=== PATIENT | female | born 1975 | race Caucasian/White ===

== ENCOUNTER 2017-12-18 23:33 | Emergency (ER) | payer SELFPAY ==
[2017-12-18 23:35] VITALS: BP 197/119; PULSE 105; RESP 18; TEMP 36.6; O2SAT 98; BMI 46.3
--- NOTE | 2017-12-18 23:38 | EKG12_ITS ---
Test Reason : CP Blood Pressure : / mmHG Vent. Rate : 098 BPM Atrial Rate : 098 BPM P-R Int : 146 ms QRS Dur : 092 ms QT Int : 384 ms P-R-T Axes : 028 -02 043 degrees QTc Int : 490 ms Normal sinus rhythm Prolonged QT Abnormal ECG Confirmed by JULES SALINAS MD ([id number]), design editor ABRIL RIVAS ([id number]) on 12/22/2017 2:01:59 PM Referred By: CARLA Confirmed By:JULES SALINAS MD
--- NOTE | 2017-12-18 23:38 | RAD_ITS ---
STUDY: X-RAY CHEST REASON FOR EXAM: Female, 42 years old. Chest pain. Shortness of breath. TECHNIQUE: 1 view COMPARISON: None. FINDINGS: The lungs are clear and expanded. There is no demonstrated pleural abnormality. Normal size heart. Normal mediastinum and rebecca. Normal visualized pulmonary arteries. Normal visualized aortic arch and descending thoracic aorta. Normal visualized thoracic spine. Normal visualized ribs, clavicles, and shoulders. There is no demonstrated abnormality of the visualized soft tissue structures of the upper abdomen. RAD/Chest 1 View (Portable) IMPRESSION: Normal x-ray examination of the chest. No acute findings in the lungs Electronically Signed: Prakash Bishop, at 0:22 EDT Tel , Service support ,
[2017-12-18 23:53] VITALS: BP 172/116; PULSE 96; RESP 24; O2SAT 95
[2017-12-18] MEDS: Aspirin 81 MG TAB.CHEW 324 MG PO (23:59)
[2017-12-19 00:02] LABS: Absolute Lymphocyte Count 3.68 X10^3/ul (0.83-4.51); Absolute Neutrophil Count 4.3 X10^3/uL (2.0-7.7); Basophil# 0.04 X10^3/uL; Basophil% 0.5 % (0-1); Eosinophil# 0.15 X10^3/uL; Eosinophils% 1.7 % (0-5); Hemoglobin 13.5 g/dl (12.0-15.0); Lymphocyte # 3.68 X10^3/ul (4.0); Lymphocyte % 42.2 % (19-41); Mean Corp Hgb Conc 33.8 g/gl (32-36); Mean Corpuscular Hgb 28.1 pg (27.0-32.0); Mean Corpuscular Volume 83.3 fL (81-99); Mean Platelet Vol. 9.7 fl (6.2-12.0); Monocyte# 0.57 X10^3/uL; Monocyte% 6.5 % (0-10); Neutrophil # 4.26 X10^3/uL (2.7-7.7); Neutrophil % 48.9 % (47-70); Platelet Count 252 K/mm3 (150-450); RBC Distribution Width CV 14.1 % (11.6-14.6); RBC Distribution Width SD 42.6 fl (35.1-43.9); White Blood Count 8.7 K/mm3 (4.4-11.0)
[2017-12-19 00:03] LABS: POSITIVE COUNT NO; POSITIVE DIFFERENTIAL NO; POSITIVE MORPHOLOGY NO
[2017-12-19 00:19] LABS: Anion Gap 7 (5-15); BUN 8 mg/dL (7-18); Calcium,Total 8.7 mg/dL (8.5-10.1); Chloride 107 mmol/L (98-107); Creatinine, Serum 0.88 mg/dL (0.55-1.02); EST Glomerular Filtration Rate 75 mL/min (>60); Est Glom Filt Rate - Afr Amer 91 mL/min (>60); Estimated Creatinine Clearance 79.55 ml/min; Glucose 151 mg/dL (74-106); Potassium 3.7 mmol/L (3.5-5.1); Sodium Level 142 mmol/L (136-145)
--- NOTE | 2017-12-19 00:41 | EKG12_ITS ---
Test Reason : REPEAT Blood Pressure : / mmHG Vent. Rate : 095 BPM Atrial Rate : 095 BPM P-R Int : 142 ms QRS Dur : 090 ms QT Int : 378 ms P-R-T Axes : 033 -07 034 degrees QTc Int : 475 ms Normal sinus rhythm Normal ECG Confirmed by JULES SALINAS MD ([id number]), pictures editor ABRIL RIVAS ([id number]) on 12/22/2017 2:02:14 PM Referred By: CARLA Confirmed By:JULES SALINAS MD
--- NOTE | 2017-12-19 00:42 | ED.VISSUMM ---
- ER Visit Summary Date of Service: 12/19/17 Chief Complaint: Chest pain History of Present Illness: The patient is a 42 F male history of reflux, hypertension, DVT on Xarelto and prior breast cancer 5 years ago without metastases. He states she has felt rundown all week. Started having chest pain about 4 hours prior to arrival while at rest. Denies any shortness of breath. Denies any hemoptysis. Denies any leg pain or swelling. States 1-2 years ago she had a stress test that was negative at the [facility]. She has never had a heart cath. She denies any recent exertional chest pain or exertional dyspnea. She has had no recent travel or surgery. Pain is not pleuritic. It is midsternal. The pain does not radiate to her neck, back, jaw or down her arm. She denies any abdominal pain. Physical Examination: Well appearing middle-aged female. Initial blood pressure 197 119. Afebrile pulse ox 90% on room air no signs of hypoxia. She is in no distress. H EENT exam unremarkable. Neck nontender no lymphadenopathy. Lungs clear to auscultation bilaterally. Chest wall nontender. Heart regular rhythm rate about 98 no murmur. Abdomen is soft and nontender. Normal bowel sounds no peritoneal signs. Extremities she moves all 4. Neurovascular intact. Calves nontender. No edema. No cords. Normal range of motion both upper and lower extremities. Equal symmetrical radial pulses. Back exam nontender. Neurologically she is awake and alert without focal motor deficits. Test Results: Chest x-ray portable one view read by myself the radiologist showed no acute abnormality. Normal cardiac silhouette and mediastinum. CBC normal. BMP normal. Troponin normal less than 0.02. Initial EKG sinus rhythm a rate of 98 with no acute signs of NM or ischemia. Unchanged from prior EKG from November 2016. Emergency Department Course and Treatment: Patient worked up for chest pain. Given p.o. aspirin. On repeat exam she is doing well at 00 41. I went over all the test results with the patient. I explained that this is atypical pain. It was at rest she has had no exertional symptoms. She wants to be discharged home. I discussed with her getting a second troponin which she did not want to wait for is that she will follow-up with her primary care physician. A second EKG will be obtained prior to discharge. Treatment Plan: Cardiac evaluation. Disposition: Discharge follow-up with her primary care physician Dr. Muse. Impression: Acute chest pain uncertain etiology. Acute on chronic hypertension This note was generated with [employer] dictation software. It may contain incorrect words, spelling, and punctuation that were not noted in review of the chart prior to signing ED Disposition - Plan for ED Patient: Chief Complaint: Chest Pain Referrals: Sukhdeep Muse MD [Primary Care Provider] -
--- NOTE | 2017-12-19 00:46 | ED.DCSUM_ITS ---
- ER Visit Summary Date of Service: 12/19/17 Chief Complaint: Chest pain History of Present Illness: The patient is a 42 F male history of reflux, hypertension, DVT on Xarelto and prior breast cancer 5 years ago without metastases. He states she has felt rundown all week. Started having chest pain about 4 hours prior to arrival while at rest. Denies any shortness of breath. Denies any hemoptysis. Denies any leg pain or swelling. States 1-2 years ago she had a stress test that was negative at the [facility]. She has never had a heart cath. She denies any recent exertional chest pain or exertional dyspnea. She has had no recent travel or surgery. Pain is not pleuritic. It is midsternal. The pain does not radiate to her neck, back, jaw or down her arm. She denies any abdominal pain. Physical Examination: Well appearing middle-aged female. Initial blood pressure 197 119. Afebrile pulse ox 90% on room air no signs of hypoxia. She is in no distress. H EENT exam unremarkable. Neck nontender no lymphadenopathy. Lungs clear to auscultation bilaterally. Chest wall nontender. Heart regular rhythm rate about 98 no murmur. Abdomen is soft and nontender. Normal bowel sounds no peritoneal signs. Extremities she moves all 4. Neurovascular intact. Calves nontender. No edema. No cords. Normal range of motion both upper and lower extremities. Equal symmetrical radial pulses. Back exam nontender. Neurologically she is awake and alert without focal motor deficits. Test Results: Chest x-ray portable one view read by myself the radiologist showed no acute abnormality. Normal cardiac silhouette and mediastinum. CBC normal. BMP normal. Troponin normal less than 0.02. Initial EKG sinus rhythm a rate of 98 with no acute signs of VA or ischemia. Unchanged from prior EKG from November 2016. Emergency Department Course and Treatment: Patient worked up for chest pain. Given p.o. aspirin. On repeat exam she is doing well at 00 41. I went over all the test results with the patient. I explained that this is atypical pain. It was at rest she has had no exertional symptoms. She wants to be discharged home. I discussed with her getting a second troponin which she did not want to wait for is that she will follow-up with her primary care physician. A second EKG will be obtained prior to discharge. Treatment Plan: Cardiac evaluation. Disposition: Discharge follow-up with her primary care physician Dr. Muse. Impression: Acute chest pain uncertain etiology. Acute on chronic hypertension This note was generated with [employer] dictation software. It may contain incorrect words, spelling, and punctuation that were not noted in review of the chart prior to signing ED Disposition - Plan for ED Patient: Chief Complaint: Chest Pain Referrals: Sukhdeep Muse MD [Primary Care Provider] -
--- NOTE | 2017-12-19 00:46 | ED.DEP ---
ED Disposition - Plan for ED Patient: Disposition: Home or Assisted Living Chief Complaint: Chest Pain Instructions: ED Chest Pain Atypical Unkn Cause Referrals: Sukhdeep Muse MD [Primary Care Provider] - As soon as possible Additional Instructions: All your test results were normal tonight. Call and follow-up with Dr. Muse. Return to ER if you are feeling worse or you have recurrent chest pain. Log your blood pressures twice daily. And follow-up with Dr. Muse your blood pressure was running elevated tonight. They may or may not need to adjust her blood pressure medication.
[2017-12-19 00:49] VITALS: BP 157/114; PULSE 97; RESP 18; O2SAT 96
[2017-12-19 01:10] VITALS: BP 154/114; PULSE 95; RESP 18
== END 2017-12-19 01:10 | disposition home or self-care (01) ==
PROVIDERS: Emergency Provider Emergency Medicine; Family Provider Family Medicine; PCP Family Medicine
DX: R07.9 Chest pain, unspecified (principal); I10 Essential (primary) hypertension; K21.9 Gastro-esophageal reflux disease without esophagitis; Z85.3 Personal history of malignant neoplasm of breast; Z86.718 Personal history of other venous thrombosis and embolism; Z79.02 Long term (current) use of antithrombotics/antiplatelets; Z79.899 Other long term (current) drug therapy
CPT/HCPCS: 71045; 80048; 84484; 85025; 93005; 99285; A4216

== ENCOUNTER → 2019-04-02 | Outpatient (CLI) | payer MEDICAID, SELFPAY ==
[2019-04-02 15:29] VITALS: BMI 46.3
[2019-04-06 15:11] LABS: HPV APTIMA, High Risk Negative (Negative)
== END | disposition home or self-care (01) ==
LOC: LABSPEC 17:12
PROVIDERS: Family Provider Family Medicine; PCP Family Medicine; Referring Provider Obstetrics & Gynecology; Visit Provider Obstetrics & Gynecology
DX: Z12.4 Encounter for screening for malignant neoplasm of cervix (principal)
CPT/HCPCS: 87624; 88175; G0145

== ENCOUNTER → 2021-02-19 | Outpatient (CLI) | payer MEDICAID, SELFPAY ==
[2021-02-19 08:50] VITALS: BMI 48.1
== END | disposition home or self-care (01) ==
PROVIDERS: PCP Family Medicine; Referring Provider Nurse Practitioner Women's Health; Visit Provider Nurse Practitioner Women's Health
DX: N76.0 Acute vaginitis (principal); R10.2 Pelvic and perineal pain; R30.9 Painful micturition, unspecified
CPT/HCPCS: 87070; 87086; 87088; 87205

== ENCOUNTER → 2021-02-25 15:10 | Outpatient (CLI) | payer MEDICAID, SELFPAY ==
[2021-02-19 08:50] VITALS: BMI 48.1
--- NOTE | 2021-02-25 15:13 | US_ITS ---
STUDY: ULTRASOUND OF THE FEMALE PELVIS - COMPLETE REASON FOR EXAM: Female, 46 years old. pain LMP: TECHNIQUE: Transabdominal and Transvaginal TECHNICAL QUALITY: Limited. Examination limited due to a combination of factors including obesity and bowel gas. COMPARISON: None. FINDINGS: The uterus is anteverted and is in a midline position. The uterus measures 7.7 x 4.5 x 3.0 cm. There is a Nabothian cyst of the cervix. The endometrium measures 3 mm in thickness, and is hyperechoic. There is no demonstrated endometrial mass. There is no demonstrated myometrial mass. I.U.D. - The patient does not have an I.U.D. The right ovary is non-visualized. Nonvisualized by bowel gas. The left ovary is visualized. There is no left ovarian cyst or ovarian mass. There is no visualized left adnexal mass or complex lesion. There is normal arterial and normal venous vascularity. There is no fluid in the cul-de-sac. The pre void volume of the bladder was 632 ml. US/Transvaginal Non- IMPRESSION: Right ovary is not seen, otherwise negative exam. Electronically Signed: Delfino Walsh MD at 0:02 EDT , Service support ,
--- NOTE | 2021-02-25 15:13 | US_ITS ---
STUDY: ULTRASOUND OF THE FEMALE PELVIS - COMPLETE REASON FOR EXAM: Female, 46 years old. pain LMP: TECHNIQUE: Transabdominal and Transvaginal TECHNICAL QUALITY: Limited. Examination limited due to a combination of factors including obesity and bowel gas. COMPARISON: None. FINDINGS: The uterus is anteverted and is in a midline position. The uterus measures 7.7 x 4.5 x 3.0 cm. There is a Nabothian cyst of the cervix. The endometrium measures 3 mm in thickness, and is hyperechoic. There is no demonstrated endometrial mass. There is no demonstrated myometrial mass. I.U.D. - The patient does not have an I.U.D. The right ovary is non-visualized. Nonvisualized by bowel gas. The left ovary is visualized. There is no left ovarian cyst or ovarian mass. There is no visualized left adnexal mass or complex lesion. There is normal arterial and normal venous vascularity. There is no fluid in the cul-de-sac. The pre void volume of the bladder was 632 ml. US/Pelvic (Non ) IMPRESSION: Right ovary is not seen, otherwise negative exam. Electronically Signed: Delfino Walsh MD at 0:02 EDT , Service support ,
== END ==
PROVIDERS: PCP Family Medicine; Referring Provider Nurse Practitioner Women's Health; Visit Provider Nurse Practitioner Women's Health
DX: R10.2 Pelvic and perineal pain (principal)
CPT/HCPCS: 76830; 76856

== ENCOUNTER → 2022-04-09 | Outpatient (CLI) | payer MEDICAID, SELFPAY | END | disposition home or self-care (01) | LOC: LABSPEC 10:01 | PROVIDERS: PCP Family Medicine; Visit Provider Obstetrics & Gynecology | DX: N89.8 Other specified noninflammatory disorders of vagina (principal) | CPT/HCPCS: 87070; 87086; 87088; 87205 ==

== ENCOUNTER → 2022-10-15 | Outpatient (CLI) | payer MEDICAID, SELFPAY ==
--- NOTE | 2022-10-15 14:05 | US_ITS ---
STUDY: ULTRASOUND OF THE FEMALE PELVIS - COMPLETE REASON FOR EXAM: Female, 47 years old. AUB LMP: 10/05/2022. TECHNIQUE: Transabdominal and Transvaginal TECHNICAL QUALITY: Adequate. COMPARISON: Comparison is made with prior examination dated 02/25/2021. FINDINGS: The uterus is anteverted and is in a midline position. The uterus measures 7.6 x 5.9 cm x 4.3 cm. There is a Nabothian cyst of the cervix. The endometrium measures 5.2 mm in thickness, and is hyperechoic. There is no demonstrated endometrial mass. There is no demonstrated myometrial mass. I.U.D. - The patient does not have an I.U.D. The right ovary is visualized. The right ovary measures 2 cm x 1.7 cm x 1 cm. There is no right ovarian cyst or ovarian mass. There is no visualized right adnexal mass or complex lesion. There is normal arterial and normal venous vascularity. The left ovary is non-visualized due to overlying bowel gas. There is no fluid in the cul-de-sac. The pre void volume of the bladder was 288 ml. US/Pelvic (Non ) IMPRESSION: Normal female pelvis. Nonvisualization of the left ovary due to overlying bowel gas. Electronically Signed: Chet Valdes MD at 11:04 EST ,
== END | disposition home or self-care (01) ==
LOC: OPUS 14:04
PROVIDERS: PCP Family Medicine; Referring Provider Obstetrics & Gynecology; Visit Provider Obstetrics & Gynecology
DX: N93.9 Abnormal uterine and vaginal bleeding, unspecified (principal)
CPT/HCPCS: 76830; 76856

== ENCOUNTER → 2023-05-24 | Outpatient (CLI) | payer MEDICAID, SELFPAY ==
[2023-05-24 14:56] LABS: Follicle Stimulating Hormone 13.3 mIU/mL; Prolactin 3.4 ng/mL
[2023-05-28 10:08] LABS: HPV APTIMA, High Risk Negative (Negative)
[2023-05-29 11:07] LABS: 17-Hydroxyprogesterone 17 ng/dL (.)
[2023-06-03 05:08] LABS: Testosterone Free 1.5 pg/mL (0.0-4.2)
== END | disposition home or self-care (01) ==
PROVIDERS: PCP Family Medicine; Referring Provider Obstetrics & Gynecology; Visit Provider Obstetrics & Gynecology
DX: N93.9 Abnormal uterine and vaginal bleeding, unspecified (principal); N95.0 Postmenopausal bleeding; Z12.4 Encounter for screening for malignant neoplasm of cervix; Z78.0 Asymptomatic menopausal state
CPT/HCPCS: 36415; 82627; 82670; 83001; 83498; 84146; 84402; 87624; 88175; 82626; G0145

== ENCOUNTER → 2023-06-01 | Outpatient (CLI) | payer MEDICAID, SELFPAY ==
--- NOTE | 2023-06-01 13:59 | US_ITS ---
INDICATION: aub, pmb EXAMINATION: Ultrasound US Pelvis Non OB Limited With Transvaginal Imaging TECHNIQUE: Transabdominal and transvaginal (for optimal evaluation of the adnexa) pelvic ultrasound was performed. Grayscale, spectral waveform, and color flow Doppler evaluation of the adnexa. COMPARISON: 10/15/2022. FINDINGS: UTERUS: Anteverted. The uterus measures 8.9 x 5.4 x 4.3 cm. There is no uterine mass. The endometrial stripe measures 5 mm in AP diameter which is within normal limits. RIGHT OVARY: Not visualized. LEFT OVARY: Not visualized. FREE FLUID: None. US/Pelvic (Non ) IMPRESSION: Nonvisualization of bilateral ovaries due to overlying bowel gas. Otherwise, normal uterus. Electronically Signed: Nikhil Albert MD at 20:44 EDT ,
--- NOTE | 2023-06-01 13:59 | US_ITS ---
INDICATION: aub, pmb EXAMINATION: Ultrasound US Pelvis Non OB Limited With Transvaginal Imaging TECHNIQUE: Transabdominal and transvaginal (for optimal evaluation of the adnexa) pelvic ultrasound was performed. Grayscale, spectral waveform, and color flow Doppler evaluation of the adnexa. COMPARISON: 10/15/2022. FINDINGS: UTERUS: Anteverted. The uterus measures 8.9 x 5.4 x 4.3 cm. There is no uterine mass. The endometrial stripe measures 5 mm in AP diameter which is within normal limits. RIGHT OVARY: Not visualized. LEFT OVARY: Not visualized. FREE FLUID: None. US/Transvaginal Non- IMPRESSION: Nonvisualization of bilateral ovaries due to overlying bowel gas. Otherwise, normal uterus. Electronically Signed: Nikhil Albert MD at 20:44 EDT ,
== END | disposition home or self-care (01) ==
LOC: US 13:58
PROVIDERS: PCP Family Medicine; Referring Provider Obstetrics & Gynecology; Visit Provider Obstetrics & Gynecology
DX: N93.9 Abnormal uterine and vaginal bleeding, unspecified (principal); N95.0 Postmenopausal bleeding
CPT/HCPCS: 76830; 76856

== ENCOUNTER → 2023-10-11 | Outpatient (CLI) | payer MEDICAID, SELFPAY ==
[2023-10-11 13:45] LABS: Absolute Lymphocyte Count 2.67 X10^3/uL (0.83-4.51); Absolute Neutrophil Count 5.1 X10^3/uL (2.0-7.7); Basophil# 0.05 X10^3/uL; Basophil% 0.6 % (0-1); Eosinophils% 2.4 % (0-5); Hematocrit 47.3 % (37-47); Hemoglobin 15.4 g/dL (12.0-15.0); Lymphocyte # 2.67 X10^3/ul (0.83-4.51); Lymphocyte % 31.5 % (19-41); Mean Corp Hgb Conc 32.6 g/dL (32-36); Mean Corpuscular Hgb 29.3 pg (27.0-32.0); Mean Corpuscular Volume 90.1 fL (81-99); Mean Platelet Vol. 9.7 fl (6.2-12.0); Monocyte# 0.47 X10^3/uL; Monocyte% 5.5 % (0-10); NRBC Flagged by Analyzer 0 % (0-5); Neutrophil # 5.06 X10^3/uL (2.7-7.7); Neutrophil % 59.6 % (47-70); Platelet Count 293 K/mm3 (150-450); RBC Distribution Width CV 12.9 % (11.6-14.6); RBC Distribution Width SD 42.2 fl (35.1-43.9); Red Blood Count 5.25 M/mm3 (4.2-5.4); White Blood Count 8.5 K/mm3 (4.4-11.0)
--- OUTSIDE RECORDS SUMMARY | 2023-10-11 13:50 | XMS RPT_ITS | CCD ---
Author Name Unknown Address [address] [place] [address] Organization [facility] Care Team Providers Care Law Writer Name Role Phone Sukhdeep Muse MD Primary Care Provider SUKHDEEP MUSE Primary Care Unavailable SAVITA GRIFFITH Attending Unavailable VICENTE, SUKHDEEP Mariano Primary Care Unavailable MONICA MANUEL Attending Unavailable MONICA MANUEL Referring Unavailable CHARISMA LANE Attending Unavailable DEE GARCIA Referring Unavailable VICENTE, SUKHDEEP Mariano Primary Care Unavailable VICENTE, SUKHDEEP Mariano Primary Care Unavailable DEE GARCIA Attending Unavailable SUKHDEEP MUSE Referring Unavailable VICENTE, SUKHDEEP Mariano Primary Care Unavailable SUKHDEEP MUSE Referring Unavailable VICENTE, SUKHDEEP Mariano Primary Care Unavailable VICENTE, SUKHDEEP Mariano Referring Unavailable VICENTE, SUKHDEEP Mariano Primary Care Unavailable VICENTE, SUKHDEEP Mariano Primary Care Unavailable VICENTE, SUKHDEEP Mariano Attending Unavailable SUKHDEEP MUSE Primary Care Unavailable MONICA MANUEL Referring Unavailable VICENTE, SUKHDEEP Mariano Primary Care Unavailable MONICA MANUEL Attending Unavailable MONICA MANUEL Referring Unavailable VICENTE, SUKHDEEP Mariano Primary Care Unavailable JADE BLANCO Referring Unavailable VICENTE, SUKHDEEP Mariano Primary Care Unavailable SAVITA GRIFFITH Attending Unavailable SUKHDEEP MUSE Primary Care Unavailable SAVITA GRIFFITH Referring Unavailable STEPHANIE RAYMOND~[id number], STEPHANIE Floyd g Unavailable MARISA RAYMOND, MARY Chappell Consulting Unavailable MARISA RAYMOND~[id number], MARISA Chappell Attending Unavailable SUKHDEEP MUSE Primary Care Unavailable MARISA RAYMOND, MARY Chappell Consulting Unavailable SUKHDEEP MUSE Consulting Unavailable SUKHDEEP MUSE Consulting Unavailable JUAN RAYMOND, ADA Consulting Unavailabl essence MARTINEZ MD, ADA Consulting Unavailcorey BROWN MD, Jayro Carvalho Consulting Unavailab radha BROWN MD, Jayro Carvalho Consulting Unavailab PEDRITO Hassan PA-C Consulting UnavailPEDRITO Singleton PA-C Consulting Unavailabl RORY Shelley DO Consulting Unavailable RORY VELEZ DO Consulting Unavailable Allergies Allergy Classification Reported Allergen(s) Allergy Type Date of Onset Reaction(s) Facility (16 sources) Contrast media Drug Allergy 3 Hives [facility] Work Phone: (20 sources) Ketorolac; Translations: [KETOROLAC TROMETHAMINE] Drug Allergy 3 Hives [facility] Work Phone: (20 sources) Lisinopril; Translations: [LISINOPRIL] Drug Allergy 6 Cough [facility] Work Phone: (16 sources) Morphine Drug Allergy 3 Hives [facility] Work Phone: (20 sources) Nitrofurantoin; Translations: [NITROFURANTOIN] Drug Allergy 3 Hives, Other: See Comments [facility] Work Phone: (20 sources) Phenazopyridine; Translations: [PHENAZOPYRIDINE] Drug Allergy 3 Hives, Other: See Comments [facility] Work Phone: (1 source) Amino Acids Drug Allergy [facility] (1 source) Ketorolac Drug Allergy [facility] (1 source) Phenazopyridine Drug Allergy [facility] Medications Current Medications Medication Drug Class(es) Dates Sig (Normalized) Sig (Original) amoxicillin 875 mg oral tablet (2 sources) Penicillin-class Antibacterial Start: 03-09-2023 End: 03-14-2023 take 1 tablet by mouth twice daily amoxicillin (AMOXIL) 875 mg tablet Indications: Pain, dental Take 1 tablet by mouth twice daily for 5 days. 10 tablet 0 03/09/2023 03/14/2023 Active Completed/Discontinued Medications Medication Drug Class(es) Dates Sig (Normalized) Sig (Original) acetaminophen 500 mg oral tablet (20 sources) End: 06-14-2022 take 2 tablets by mouth every eight hours as needed acetaminophen (TYLENOL) 500 mg tablet Take 1,000 mg by mouth every 8 hours as needed. 0 Active Problems Active Problems Problem Classification Problem Date Documented Date Episodic/Chronic Anxiety disorders (20 sources) Anxiety; Translations: [Anxiety disorder, unspecified] Onset: 05-04-2022 06-08-2014 Chronic Cancer of breast (20 sources) Malignant neoplasm of upper-outer quadrant of female breast; Translations: [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eft female breast] Onset: 12-13-2012 07-11-2017 Chronic Diabetes mellitus with complications (20 sources) Type 2 diabetes mellitus; Translations: [Type 2 diabetes mellitus with hyperglycemia] Onset: 05-04-2022 Chronic Diabetes mellitus without complication (1 source) Type 2 diabetes mellitus without complication; Translations: [Type 2 diabetes mellitus without complications] Chronic Diseases of white blood cells (20 sources) Other drug-induced agranulocytosis; 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] Onset: 12-18-2012 12-18-2012 Chronic Disorders of teeth and jaw (1 source) Toothache; Translations: [Other specified disorders of teeth and supporting structures] Episodic Esophageal disorders (1 source) Gastro-esophageal reflux disease without esophagitis; Translations: [Hiatal hernia with GERD without esophagitis] Onset: 07-02-2016 Chronic Esophageal disorders (1 source) Esophageal disorders; Translations: [Gastroesophageal reflux disease with esophagitis without hemorrhage] Onset: 03-29-2023 Essential hypertension (20 sources) Hypertensive disorder; Translations: [Essential (primary) hypertension] Onset: 06-08-2014 06-08-2014 Chronic Immunizations and screening for infectious disease (5 sources) Patient encounter status; Translations: [Encounter for screening for human immunodeficiency virus [HIV]] Onset: 08-01-2023 Episodic Mood disorders (1 source) Mood disorders; Translations: [Anxiety and depression] Onset: 05-04-2022 Nonmalignant breast conditions (1 source) Fibrocystic changes of bilateral breasts; Translations: [Diffuse cystic mastopathy of right breast] Chronic Osteoporosis (20 sources) Osteoporosis; Translations: [Age-related osteoporosis without current pathological fracture] Onset: 12-10-2021 12-10-2021 Chronic Other connective tissue disease (1 source) Right achilles tendonitis; Translations: [Achilles tendinitis, right leg] Episodic Other diseases of veins and lymphatics (20 sources) Lymphedema; Translations: [Lymphedema, not elsewhere classified] Onset: 12-16-2014 01-14-2017 Chronic Other female genital disorders (20 sources) Pain in female genitalia on intercourse; Translations: [Unspecified dyspareunia] Onset: 02-04-2017 02-04-2017 Chronic Other female genital disorders (1 source) Unspecified dyspareunia; Translations: [Dyspareunia in female] Onset: 02-04-2017 Chronic Other liver diseases (2 sources) Elevated liver enzymes level; Translations: [Abnormal levels of other serum enzymes] Episodic Other liver diseases (1 source) Abnormal levels of other serum enzymes; Translations: [Elevated liver enzymes] Onset: 08-01-2023 Episodic Other non-traumatic joint disorders (1 source) Acute ankle pain; Translations: [Pain in right ankle and joints of right foot] Episodic Other nutritional; endocrine; and metabolic disorders (20 sources) Obesity; Translations: [Other obesity due to excess calories] Onset: 12-29-2015 12-29-2015 Chronic Other nutritional; endocrine; and metabolic disorders (20 sources) Morbid obesity; Translations: [Morbid (severe) obesity due to excess calories] Onset: 12-31-2016 12-31-2016 Chronic Other nutritional; endocrine; and metabolic disorders (15 sources) Body mass index 40+ - severely obese; Translations: [Morbid (severe) obesity due to excess calories] Onset: 01-15-2023 01-15-2023 Chronic Other nutritional; endocrine; and metabolic disorders (12 sources) Obesity caused by energy imbalance; Translations: [Other obesity due to excess calories] Onset: 12-29-2015 12-29-2015 Chronic Other nutritional; endocrine; and metabolic disorders (1 source) Morbid (severe) obesity due to excess calories; Translations: [Obesity, Class III, BMI 40-49.9 (morbid obesity) (HCC)] Onset: 01-15-2023 Chronic Other skin disorders (1 source) Mass of skin of back; Translations: [Localized swelling, mass and lump, trunk] Episodic Unclassified (1 source) OPENED IN ERROR Past or Other Problems Problem Classification Problem Date Documented Da te Episodic/Chronic Abdominal hernia (20 sources) Gastroesophageal reflux disease with hiatal hernia; Translations: [Diaphragmatic hernia without obstruction or gangrene] Onset: 07-02-2016 Episodic Allergic reactions (20 sources) Vulval eczema; Translations: [Dermatitis, unspecified] Onset: 2 06-14-2022 Episodic Cancer of breast (3 sources) History of malignant neoplasm of breast; Translations: [Personal history of malignant neoplasm of breast] Onset: 3 Episodic Diabetes mellitus without complication (20 sources) Hyperglycemia; Translations: [Hyperglycemia, unspecified] Onset: 2 Episodic Other lower respiratory disease (1 source) Pleurodynia; Translations: [Rib pain on left side] Onset: 3 Episodic Other screening for suspected conditions (not mental disorders or infectious disease) (3 sources) Encounter for screening for malignant neoplasm of colon; Translations: [Encounter for screening mammogram for malignant neoplasm of breast] Onset: 3 Episodic Other skin disorders (1 source) Localized swelling, mass and lump, trunk; Translations: [Lump of skin of back] Onset: 3 Episodic Phlebitis; thrombophlebitis and thromboembolism (20 sources) H/O: cardiovascular disease; Translations: [Personal history of other venous thrombosis and embolism] Onset: 8 12-19-2017 Episodic Pulmonary heart disease (20 sources) Pulmonary embolism; Translations: [Other pulmonary embolism without acute cor pulmonale] Onset: 4 04-02-2019 Episodic Residual codes; unclassified (20 sources) Family history of ischemic heart disease; Translations: [Family history of ischemic heart disease and other diseases of the circulatory system] Onset: 6 12-29-2015 Episodic Spondylosis; intervertebral disc disorders; other back problems (20 sources) Low back pain; Translations: [Low back pain, unspecified] Onset: 2 06-14-2022 Episodic Urinary tract infections (20 sources) Urinary tract infectious disease; Translations: [Urinary tract infection, site not specified] Onset: 1 06-14-2022 Episodic Results Test Name Value Interpretation Reference Range Facil ity Vital Signs Date Time Vital Sign Value Performing Clinician Adi leon 08-01-2023 13:29-0500 Body weight 123.83 kg Savita Griffith APRN.CHUTE BOSS Work Phone: [facility] 08-01-2023 13:29-0500 Diastolic blood pressure 84 mm[Hg] Savita Haagen TRUMPET TEACHER.CHUTE BOSS Work Phone: [facility] 08-01-2023 13:29-0500 Heart rate 94 /min Savita Haagen TRUMPET TEACHER.CHUTE BOSS Work Phone: [facility] 08-01-2023 13:29-0500 Respiratory rate 16 /min Savita Haagen TRUMPET TEACHER.CHUTE BOSS Work Phone: [facility] 08-01-2023 13:29-0500 SaO2% (BldA) [Mass fraction] 96 % Savita Haagen TRUMPET TEACHER.CHUTE BOSS Work Phone: [facility] 08-01-2023 13:29-0500 Systolic blood pressure 112 mm[Hg] Savita Haagen TRUMPET TEACHER.CHUTE BOSS Work Phone: [facility] 06-27-2023 13:53-0400 Body height 166.5 cm Monica Manuel TRUMPET TEACHER.CHUTE BOSS Work Phone: [facility] 06-27-2023 13:53-0400 Body temperature 97.9 [degF] Monica Manuel TRUMPET TEACHER.CHUTE BOSS Work Phone: [facility] 06-27-2023 13:53-0400 Body weight 124.06 kg Monica Manuel TRUMPET TEACHER.CHUTE BOSS Work Phone: [facility] 06-27-2023 13:53-0400 Diastolic blood pressure 74 mm[Hg] Monica Manuel TRUMPET TEACHER.CHUTE BOSS Work Phone: [facility] 06-27-2023 13:53-0400 Heart rate 91 /min Monica Manuel TRUMPET TEACHER.CHUTE BOSS Work Phone: [facility] 06-27-2023 13:53-0400 SaO2% (BldA) [Mass fraction] 95 % Monica Manuel TRUMPET TEACHER.CHUTE BOSS Work Phone: [facility] 06-27-2023 13:53-0400 Systolic blood pressure 108 mm[Hg] Monica Manuel TRUMPET TEACHER.CHUTE BOSS Work Phone: [facility] 03-09-2023 11:20-0400 Body temperature 98.1 [degF] Leslie Ramirez APRN.CHUTE BOSS Work Phone: [facility] 03-09-2023 11:20-0400 Body weight 118.39 kg Leslie Ramirez APRN.CHUTE BOSS Work Phone: [facility] 03-09-2023 11:20-0400 Diastolic blood pressure 80 mm[Hg] Leslie Ramirez APRN.CHUTE BOSS Work Phone: [facility] 03-09-2023 11:20-0400 Heart rate 92 /min Leslie Ramirez APRN.CHUTE BOSS Work Phone: [facility] 03-09-2023 11:20-0400 Respiratory rate 16 /min Leslie Ramirez APRN.CHUTE BOSS Work Phone: [facility] 03-09-2023 11:20-0400 SaO2% (BldA) [Mass fraction] 95 % Leslie Ramirez APRN.CHUTE BOSS Work Phone: [facility] 03-09-2023 11:20-0400 Systolic blood pressure 124 mm[Hg] Leslie Ramirez APRN.CHUTE BOSS Work Phone: [facility] 02-18-2023 13:05-0400 Body height 167.6 cm Dee Brutus PA-C Work Phone: [facility] 02-18-2023 13:05-0400 Body temperature 98.8 [degF] Dee Brutus PA-C Work Phone: [facility] 02-18-2023 13:05-0400 Body weight 117.94 kg Dee Jose PA-C Work Phone: [facility] 02-18-2023 13:05-0400 Diastolic blood pressure 78 mm[Hg] Dee Brutus PA-C Work Phone: [facility] 02-18-2023 13:05-0400 Heart rate 117 /min Dee Brutus PA-C Work Phone: [facility] 02-18-2023 13:05-0400 SaO2% (BldA) [Mass fraction] 96 % Dee GREENE-C Work Phone: [facility] 02-18-2023 13:05-0400 Systolic blood pressure 126 mm[Hg] Dee Garcia PA-C Work Phone: [facility] 08-11-2022 10:54-0500 Body weight 118.39 kg Savita Haagen TRUMPET TEACHER.CHUTE BOSS Work Phone: [facility] 08-11-2022 10:54-0500 Diastolic blood pressure 90 mm[Hg] Savita Haagen TRUMPET TEACHER.CHUTE BOSS Work Phone: [facility] 08-11-2022 10:54-0500 Heart rate 77 /min Savita Haagen TRUMPET TEACHER.CHUTE BOSS Work Phone: [facility] 08-11-2022 10:54-0500 Respiratory rate 18 /min Savita Haagen TRUMPET TEACHER.CHUTE BOSS Work Phone: [facility] 08-11-2022 10:54-0500 SaO2% (BldA) [Mass fraction] 93 % Savita Haagen TRUMPET TEACHER.CHUTE BOSS Work Phone: [facility] 08-11-2022 10:54-0500 Systolic blood pressure 116 mm[Hg] Savita Haagen TRUMPET TEACHER.CHUTE BOSS Work Phone: [facility] 06-14-2022 15:27-0400 Diastolic blood pressure 88 mm[Hg] Sukhdeep Muse MD Work Phone: [facility] 06-14-2022 15:27-0400 Systolic blood pressure 124 mm[Hg] Sukhdeep Muse MD Work Phone: [facility] 06-14-2022 14:50-0400 Body height 167.6 cm Sukhdeep Muse MD Work Phone: [facility] 06-14-2022 14:50-0400 Body weight 121.75 kg Sukhdeep Muse MD Work Phone: [facility] 06-14-2022 14:50-0400 Heart rate 102 /min Sukhdeep Muse MD Work Phone: [facility] 06-14-2022 14:50-0400 SaO2% (BldA) [Mass fraction] 97 % Sukhdeep Muse MD Work Phone: [facility] 05-12-2022 09:54-0400 Body weight 126.1 kg Fm Wstr Work Phone: [facility] 05-12-2022 09:54-0400 Diastolic blood pressure 78 mm[Hg] Fm Wstr Work Phone: [facility] 05-12-2022 09:54-0400 Heart rate 88 /min Fm Wstr Work Phone: [facility] 05-12-2022 09:54-0400 Systolic blood pressure 124 mm[Hg] Fm Wstr Work Phone: [facility] Encounters Encounter Date Encounter Type Care Provider Facility Start: 10-07-2023 End: 10-07-2023 ambulatory STEPHANIE BROWN MD~[id number] Facility:[facility] Start: 09-14-2023 End: 09-15-2023 ambulatory [facility] Facility:[facility] Start: 08-01-2023 End: 08-02-2023 ambulatory [facility] Facility:[facility] Start: 08-01-2023 End: 08-02-2023 ambulatory [facility] Facility:[facility] Start: 08-01-2023 End: 08-01-2023 Office outpatient visit 25 minutes Savita Griffith APRN.CHUTE BOSS Work Phone: [facility] Procedures Date Procedure Procedure Detail Performing Clinician Start: 08-01-2023 INFLUENZA VACCINE, A GE 6 MO - 64 YR, QUADRIVALENT (AFLURIA, FLULAVAL, FLUZONE) Savita Griffith APRN.CHUTE BOSS Work Phone: Start: 03-29-2023 Linda Schilling MD Work Phone: Start: 10-27-2022 [facility] Sukhdeep Schilling MD Work Phone: Start: 08-11-2022 Hemoglobin A1c/Hemoglobin.total in Blood Savita Haagen TRUMPET TEACHER.CHUTE BOSS Work Phone: Start: 06-14-2022 INFLUENZA VACCINE QUADRIVALENT 6 MO - 64 YRS IM Sukhdeep Muse MD Work Phone: Start: 04-14-2022 Mri breast without&w ith contrast w/cad bilateral Jade Blanco TRUMPET TEACHER.CHUTE BOSS Work Phone: Start: 12-01-2021 Radex ankle complete minimum 3 views Savita Griffith TRUMPET TEACHER.CHUTE BOSS Work Phone: Start: 06-07-2021 Adult depression scr eening assessment [facility] Work Phone: Start: 06-06-2020 Mammography [facility] Work Phone: Plan of Treatment Date Care Activity Detail Author Start: 03-29-2033 Colonoscopy COLONOSCOPY [facility] Start: 03-29-2033 COLORECTAL CANCER SCREENING COLORECTAL CANCER SCREENING [facility] Start: 01-28-2027 Urine microalbumin profile [facility] Start: 12-15-2024 DIABETES SCREEN DIABETES SCREEN [facility] Start: 08-22-2024 LIPID SCREEN LIPID SCREEN [facility] Start: 08-01-2024 Annual PCP Team Import/Export Analyst trey Disease Visit Annual PCP Team Chronic Disease Visit [facility] Start: 08-01-2024 Hepatitis B screening Urine Al bumin:Creatinine Ratio [facility] Start: 06-27-2024 BP Controlled (<130/80) BP Controlle d (<130/80) [facility] Start: 02-19-2024 BP CONTROLLED (<130/80) BP CONTROLLE D (<130/80) [facility] Start: 01-30-2024 Hemoglobin A1c/Hemoglobin.total in Blood HbA1C [facility] Start: 01-16-2024 ANNUAL PCP 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 VISIT ANNUAL PCP TEAM CHRONIC DISEASE VISIT [facility] Start: 01-16-2024 COVID-19 VACCINE (#1) COVID-19 VACCI NE (#1) [facility] Immunizations Immunization Date Immunization Notes Care Provider Fa ton 08-01-2023 influenza, injectabl e, quadrivalent, contains preservative Savita Griffith TRUMPET TEACHER.CHUTE BOSS Work Phone: [facility] 06-14-2022 influenza, injectabl e, quadrivalent, contains preservative Sukhdeep Muse MD Work Phone: [facility] 06-14-2022 influenza virus vacc ine, unspecified formulation Sukhdeep Muse MD Work Phone: [facility] 10-24-2020 pneumococcal polysaccharide vaccine, 23 valent [facility] Work Phone: [facility] 09-24-2019 influenza, injectabl e, quadrivalent, contains preservative [facility] Work Phone: [facility] 06-12-2018 influenza, injectabl e, quadrivalent, preservative free [facility] Work Phone: [facility] 08-01-2017 influenza, injectabl e, quadrivalent, contains preservative [facility] Work Phone: [facility] 01-28-2017 measles, mumps and rubella virus vaccine [facility] Work Phone: [facility] 01-28-2017 tetanus toxoid, redu arnoldo diphtheria toxoid, and acellular pertussis vaccine, adsorbed [facility] Work Phone: [facility] 07-02-2016 influenza, injectabl e, quadrivalent, contains preservative [facility] Work Phone: [facility] 06-09-2015 influenza, injectabl e, quadrivalent, contains preservative [facility] Work Phone: [facility] 10-09-2014 pneumococcal polysaccharide vaccine, 23 valent [facility] Work Phone: [facility] 06-08-2014 influenza, seasonal, injectable [facility] Work Phone: [facility] 06-27-2013 influenza virus vacc ine, unspecified formulation [facility] Work Phone: [facility] Payers Date Payer Category Payer Medicaid [id number] 2022 Medicaid [id number] 2016 Medicaid [employer] [id number] 2016-Present [phone] [address] [place] [address] Medicaid [id number] 2016 Medicaid [id number] 1977 Unknown [id number] Social History Date Type Detail Facility Start: 11-10-2012 End: 05-04-2022 Tobacco smoking status NHIS Never smoked tobacco [facility] Start: 11-10-2012 End: 05-04-2022 Tobacco use and exposure Smokeless tobacco non-user [facility] Start: 10-21-2021 End: 08-01-2023 Alcohol intake Current drinker of alcohol (finding) [facility] Start: 08-01-2020 End: 05-04-2022 History SDOH Alcohol Frequency 2 [facility] Start: 08-01-2020 End: 05-04-2022 History SDOH Alcohol Std Drinks 1 [facility] Start: 06-12-2019 History SDOH Alcohol Comment Seldom. a couple times a year [facility] Start: 11-20-2019 End: 05-04-2022 History SDOH Social Connections Taoist 3 [facility] Start: 11-20-2019 History SDOH Physica l Activity MPS 6 [facility] Start: 11-20-2019 History SDOH Stress 5 [facility] Start: 11-20-2019 Education 14 [facility] Start: 1975 Sex Assigned At Female [facility] Start: 11-21-2021 End: 06-14-2022 Exposure to SARS-CoV-2 (event) Not sure [facility] Start: 05-04-2022 History SDOH Social Connections Phone 4 [facility] Start: 05-04-2022 History SDOH Social Connections Taoist 98 [facility] Start: 05-04-2022 End: 01-15-2023 History of Social function [facility] Start: 05-04-2022 End: 01-15-2023 Social connection and isolation panel [facility] How often do you att end yazdanism or anglican services? Patient refused [facility] Do you belong to any clubs or organizations such as yazdanism groups, unions, fraternal or athletic groups, or school groups? No [facility] Are you now , , , , never or living with a partner? [facility] How often to you hav e a drink containing alcohol? Monthly or less [facility] How many standard dr inks containing alcohol do you have on a typical day? 1 or 2 [facility] How often do you hav e 6 or more drinks on 1 occasion? Never [facility] How hard is it for y ou to pay for the very basics like food, housing, medical care, and heating Somewhat hard [facility] Do you feel stress - tense, restless, nervous, or anxious, or unable to sleep at night because your mind is troubled all the time - these days [OSQ] Rather much [facility] (I/We) worried wheth er (my/our) food would run out before (I/we) got money to buy more. Sometimes true [facility] Start: 03-07-2019 Gender identity Identifies as female gender (finding) [facility] Start: 03-07-2019 Sexual orientation Heterosexual (melissa martinez) [facility] Medical Equipment Procedure Code Equipment Code Equipment Origin al Text Equipment Identifier Dates Port Implinfn Pw rprt Plas 8fr - [id number] Start: 12-14-2012 Clinical Notes 12-19-2017 to 09-14-2023 Patient InstructionsSavita Griffith APRN.CHUTE BOSS - 08/01/2023 1:54 PM ESTTelephone Encounter - Charly Pyle BLOCK STACKER - 07/01/2023 9:45 AM EDTCMonica rod APRN.CNP - 06/27/2023 1:42 PM EDT Note Date & Type Note Facility 09-14-2023 Note HNO ID: [id number] Author: Savita Griffith APRN.ALLAN Service: ? Author Type: Nurse Practitioner Type: Progress Notes Filed: 09/14/2023 9:34 PM Note Text: This is a 48 year old female who presents today with: Patient presents with: Recheck: 1 month follow up HISTORY OF PRESENT ILLNESS: Silvia Miller is a 48 year old female. Patient presents with: Recheck: 1 month follow up Pt presents today for recheck. Refers that she feels like anxiety is better controlled, but her depression is worse. Refers that she doesn't want to do anything. I hardly feel anxious at all, but the depression is ridiculous. Refers sleep is very good, or minimal -- no rhyme or reason. Appetite is okay -- not the greatest, but not horrible. 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 She is on Femara and Zoladex. Depression Diabetes (HCC) GERD (gastroesophageal reflux disease) hiatal hernia, egd Hiatal hernia 20 mg of Prilosec HTN (hypertension) PE (pulmonary embolism) Triggered by treatment for uterine bleeding. Xaralto for one year. PAST SURGICAL HISTORY Procedure Laterality Date COLONOSCOPY 03/29/2023 EGD 03/29/2023 INSJ TUNNELED CTR VAD W/SUBQ PORT AGE 7 YR/> 12/13/2012 Right Subclavian LIG/TRNSXJ FLP TUBE ABDL/VAG APPR UNI/BI 11/27/2001 MASTECTOMY, PARTIAL Left 04/12/2013 PAST SURGICAL HISTORY OF 11/12/2012 left breast lumpectomy REDUCTION OF LARGE BREAST Bilateral Breast reduction ALLERGIES Nitrofurantoin, Lisinopril, Phenazopyridine, and Toradol [Ketorolac Tromethamine] MEDICATIONS Current Outpatient Medications Medication Sig FLUoxetine (PROZAC) 20 mg capsule Take 1 capsule by mouth once daily. Take with 40 mg dose for total daily dose of 60 mg. calcium-cholecalciferol, D3, (OSCAL+D 250) 250 mg-3.125 mcg (125 unit) per tablet Take 1 tablet by mouth two times a day. tiZANidine (ZANAFLEX) 4 mg tablet Take 1 tablet by mouth every 8 hours as needed (muscle spasms). metFORMIN ER (GLUCOPHAGE XR) 500 mg 24 hr tablet Take 2 tablets by mouth daily with breakfast. ibuprofen (ADVIL) 200 mg tablet Take 200 mg by mouth every 6 hours as needed. dulaglutide (TRULICITY) 0.75 mg/0.5 mL pen injector Inject 0.75 mg subcutaneously one time a week. Inject dose once per week. Discard Pen After losartan (COZAAR) 100 mg tablet Take 1 tablet by mouth once daily. FLUoxetine (PROZAC) 40 mg capsule Take 1 capsule by mouth once daily. omeprazole (PRILOSEC) 20 mg capsule Take 1 capsule by mouth twice daily. acetaminophen (TYLENOL) 500 mg tablet Take 1,000 mg by mouth every 8 hours as needed. blood sugar diagnostic (BLOOD GLUCOSE TEST) test strip Test blood sugar(s) 1 times daily. Dx: Type 2 DM - Uncontrolled E11.65 Insulin: No hydroCHLOROthiazide (HYDRODIURIL, ESIDRIX) 25 mg tablet Take 1 tablet by mouth once daily. Lancets lancets Test blood sugar(s) 1 times daily. Dx: Type 2 DM - Uncontrolled E11.65 Insulin: No elderberry fruit (ELDERBERRY ORAL) Take 1,000 mg by mouth once daily. Blood Pressure Cuff - Home Use BLOOD PRESSURE CUFF FOR HOME USE. DX: LABILE BLOOD PRESSURE ascorbic acid (VITAMIN C) 500 mg tablet Take 500 mg by mouth once daily. multivitamin tablet Take 1 tablet by mouth once daily. No current facility-administered medications for this visit. FAMILY HISTORY Problem Relation Age of Onset Hypertension Mother A fib Stroke Mother 60 severe and has fully recovered Osteoporosis Mother Diabetes Father Heart Father 54 heart attack, CHF 2016 Hypertension Father A-Fib Stroke Father 57 Obesity Father other (Congestive Heart Failure) Father Cancer Maternal Grandmother bone cancer Diabetes Maternal Grandmother Breast Cancer Maternal Grandmother 78 other (Rapid Airway Disease) Son Heart Maternal Grandfather CHF and Enlarged Heart Diabetes Paternal Grandmother other (Lung Problems) Paternal Grandmother Heart Paternal Grandfather MD Social History Tobacco Use Smoking status: Never Smokeless tobacco: Never Vaping Use Vaping Use: Never used Substance Use Topics Alcohol use: Yes Comment: Seldom. a couple times a year Drug use: No EXAM: BP 118/84 Pulse 104 Resp 16 LMP 12/01/2022 (Approximate) SpO2 92% PHYSICAL EXAM: General Appearance: Well appearing, alert, in no acute distress, well-hydrated, well nourished.. Skin: Skin color, texture, turgor normal, no suspicious rashes or lesions. Head: Normocephalic, no masses, lesions, tenderness or abnormalities. Eyes: Anicteric sclera. Extraocular movements are inta (more content not included)... [facility] 08-01-2023 Note HNO ID: [id number] Author: Savita Griffith APRN.CHUTE BOSS Service: ? Author Type: Nurse Practitioner Type: Progress Notes Filed: 08/01/2023 5:03 PM Note Text: This is a 48 year old female who presents today with: Patient presents with: Follow Up HISTORY OF PRESENT ILLNESS: Silvia Miller is a 48 year old female. Patient presents with: Follow Up Pt presents today for follow-up. Refers that she has been having a lot of depression/anxiety. Refers that her energy is zapped. Has been going on since May. She continues on the prozac -- 40 mg daily. Depression evaluation: Sadness: yes Sleep: on and off. Some nights 4 hours of sleep and some nights 9 hours. Interests/Hobbies: I haven't been doing a whole lot. Guilt: no Energy Levels: not good. Concentration: not good -- going 100 different directions. Appetite: starving or not hungry at all. Physical: headaches Suicidal/homicidal ideation: denies. DM: Reports overall feeling well. Medication side effects: No. Home sugar checks: yes -- 115. Hypoglycemic spells: lowest was 96. Watching diet: not so much the last couple of weeks. Unexpected weight loss: No. Polyuria, polydipsia: No. Vision Changes: No. Foot lesions or numbness or pain: No. HTN: Patient is compliant with meds Yes Monitors bp at home: Yes. Denies side effects: No. Chest pain: No. Dyspnea: No. Edema: No. Palpitations: No. Syncope: No. Headache: No. Dizziness: No. Osteoporosis Stopped the fosamax because it hurt her stomach. Discussed injectables. GERD Controlled w/ PPI. 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 She is on Femara and Zoladex. Depression Diabetes (HCC) GERD (gastroesophageal reflux disease) hiatal hernia, egd Hiatal hernia 20 mg of Prilosec HTN (hypertension) PE (pulmonary embolism) Triggered by treatment for uterine bleeding. Xaralto for one year. PAST SURGICAL HISTORY Procedure Laterality Date COLONOSCOPY 03/29/2023 EGD 03/29/2023 INSJ TUNNELED CTR VAD W/SUBQ PORT AGE 5 YR/> 12/13/2012 Right Subclavian LIG/TRNSXJ FLP TUBE ABDL/VAG APPR UNI/BI 11/27/2001 MASTECTOMY, PARTIAL Left 04/12/2013 PAST SURGICAL HISTORY OF 11/12/2012 left breast lumpectomy REDUCTION OF LARGE BREAST Bilateral Breast reduction ALLERGIES Nitrofurantoin, Lisinopril, Phenazopyridine, and Toradol [Ketorolac Tromethamine] MEDICATIONS Current Outpatient Medications Medication Sig calcium-cholecalciferol, D3, (OSCAL+D 250) 250 mg-3.125 mcg (125 unit) per tablet Take 1 tablet by mouth two times a day. tiZANidine (ZANAFLEX) 4 mg tablet Take 1 tablet by mouth every 8 hours as needed (muscle spasms). metFORMIN ER (GLUCOPHAGE XR) 500 mg 24 hr tablet Take 2 tablets by mouth daily with breakfast. ibuprofen (ADVIL) 200 mg tablet Take 200 mg by mouth every 6 hours as needed. dulaglutide (TRULICITY) 0.75 mg/0.5 mL pen injector Inject 0.75 mg subcutaneously one time a week. Inject dose once per week. Discard Pen After losartan (COZAAR) 100 mg tablet Take 1 tablet by mouth once daily. FLUoxetine (PROZAC) 40 mg capsule Take 1 capsule by mouth once daily. omeprazole (PRILOSEC) 20 mg capsule Take 1 capsule by mouth twice daily. acetaminophen (TYLENOL) 500 mg tablet Take 1,000 mg by mouth every 8 hours as needed. blood sugar diagnostic (BLOOD GLUCOSE TEST) test strip Test blood sugar(s) 1 times daily. Dx: Type 2 DM - Uncontrolled E11.65 Insulin: No hydroCHLOROthiazide (HYDRODIURIL, ESIDRIX) 25 mg tablet Take 1 tablet by mouth once daily. Lancets lancets Test blood sugar(s) 1 times daily. Dx: Type 2 DM - Uncontrolled E11.65 Insulin: No alendronate (FOSAMAX) 70 mg tablet Take 1 tablet by mouth one time a week. Take with a full glass of water, on an empty stomach; do NOT lie down for 30minutes. elderberry fruit (ELDERBERRY ORAL) Take 1,000 mg by mouth once daily. Blood Pressure Cuff - Home Use BLOOD PRESSURE CUFF FOR HOME USE. DX: LABILE BLOOD PRESSURE ascorbic acid (VITAMIN C) 500 mg tablet Take 500 mg by mouth once daily. multivitamin tablet Take 1 tablet by mouth once daily. No current facility-administered medications for this visit. FAMILY HISTORY Problem Relation Age of Onset Hypertension Mother A fib Stroke Mother 60 severe and has fully recovered Osteoporosis Mother Diabetes Father Heart Father 54 heart attack, CHF 2017 Hypertension Father A-Fib Stroke Father 57 Obesity Father other (Congestive Heart Failure) Father Cancer Maternal Grandmother bone cancer Diabetes Maternal Grand (more content not included)... [facility] 08-01-2023 Instructions Savita Griffith APRN.ALLAN - 08/01/2023 2:14 PM EST Get the labwork. Increase the prozac to 60 mg daily. Consider starting injectable medication for osteoporosis. Vaseline to elbows. Recheck in a month. documented in this encounter [facility] 08-01-2023 History of Presen t illness Narrative This is a 48 year old female who presents today with: Patient presents with: Follow Up HISTORY OF PRESENT ILLNESS: Silvia Miller is a 48 year old female. Patient presents with: Follow Up Pt presents today for follow-up. Refers that she has been having a lot of depression/anxiety. Refers that her energy is zapped. Has been going on since May. She continues on the prozac -- 40 mg daily. Depression evaluation: Sadness: yes Sleep: on and off. Some nights 4 hours of sleep and some nights 9 hours. Interests/Hobbies: I haven't been doing a whole lot. Guilt: no Energy Levels: not good. Concentration: not good -- going 100 different directions. Appetite: starving or not hungry at all. Physical: headaches Suicidal/homicidal ideation: denies. DM: Reports overall feeling well. Medication side effects: No. Home sugar checks: yes -- 115. Hypoglycemic spells: lowest was 96. Watching diet: not so much the last couple of weeks. Unexpected weight loss: No. Polyuria, polydipsia: No. Vision Changes: No. Foot lesions or numbness or pain: No. HTN: Patient is compliant with meds Yes Monitors bp at home: Yes. Denies side effects: No. Chest pain: No. Dyspnea: No. Edema: No. Palpitations: No. Syncope: No. Headache: No. Dizziness: No. Osteoporosis Stopped the fosamax because it hurt her stomach. Discussed injectables. GERD Controlled w/ PPI. 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 She is on Femara and Zoladex. Depression Diabetes (HCC) GERD (gastroesophageal reflux disease) hiatal hernia, egd Hiatal hernia 20 mg of Prilosec HTN (hypertension) PE (pulmonary embolism) Triggered by treatment for uterine bleeding. Xaralto for one year. PAST SURGICAL HISTORY Procedure Laterality Date COLONOSCOPY 03/29/2023 EGD 03/29/2023 INSJ TUNNELED CTR VAD W/SUBQ PORT AGE 5 YR/> 12/13/2012 Right Subclavian LIG/TRNSXJ FLP TUBE ABDL/VAG APPR UNI/BI 11/27/2001 MASTECTOMY, PARTIAL Left 04/12/2013 PAST SURGICAL HISTORY OF 11/12/2012 left breast lumpectomy REDUCTION OF LARGE BREAST Bilateral Breast reduction ALLERGIES Nitrofurantoin, Lisinopril, Phenazopyridine, and Toradol [Ketorolac Tromethamine] MEDICATIONS Current Outpatient Medications Medication Sig calcium-cholecalciferol, D3, (OSCAL+D 250) 250 mg-3.125 mcg (125 unit) per tablet Take 1 tablet by mouth two times a day. tiZANidine (ZANAFLEX) 4 mg tablet Take 1 tablet by mouth every 8 hours as needed (muscle spasms). metFORMIN ER (GLUCOPHAGE XR) 500 mg 24 hr tablet Take 2 tablets by mouth daily with breakfast. ibuprofen (ADVIL) 200 mg tablet Take 200 mg by mouth every 6 hours as needed. dulaglutide (TRULICITY) 0.75 mg/0.5 mL pen injector Inject 0.75 mg subcutaneously one time a week. Inject dose once per week. Discard Pen After losartan (COZAAR) 100 mg tablet Take 1 tablet by mouth once daily. FLUoxetine (PROZAC) 40 mg capsule Take 1 capsule by mouth once daily. omeprazole (PRILOSEC) 20 mg capsule Take 1 capsule by mouth twice daily. acetaminophen (TYLENOL) 500 mg tablet Take 1,000 mg by mouth every 8 hours as needed. blood sugar diagnostic (BLOOD GLUCOSE TEST) test strip Test blood sugar(s) 1 times daily. Dx: Type 2 DM - Uncontrolled E11.65 Insulin: No hydroCHLOROthiazide (HYDRODIURIL, ESIDRIX) 25 mg tablet Take 1 tablet by mouth once daily. Lancets lancets Test blood sugar(s) 1 times daily. Dx: Type 2 DM - Uncontrolled E11.65 Insulin: No alendronate (FOSAMAX) 70 mg tablet Take 1 tablet by mouth one time a week. Take with a full glass of water, on an empty stomach; do NOT lie down for 30minutes. elderberry fruit (ELDERBERRY ORAL) Take 1,000 mg by mouth once daily. Blood Pressure Cuff - Home Use BLOOD PRESSURE CUFF FOR HOME USE. DX: LABILE BLOOD PRESSURE ascorbic acid (VITAMIN C) 500 mg tablet Take 500 mg by mouth once daily. multivitamin tablet Take 1 tablet by mouth once daily. No current facility-administered medications for this visit. FAMILY HISTORY Problem Relation Age of Onset Hypertension Mother A fib Stroke Mother 60 severe and has fully recovered Osteoporosis Mother Diabetes Father Heart Father 54 heart attack, CHF 2016 Hypertension Father A-Fib Stroke Father 57 Obesity Father other (Congestive Heart Failure) Father Cancer Maternal Grandmother bone cancer Diabetes Maternal Grandmother Breast Cancer Maternal Grandmother 78 other (Rapid Airway Disease) Son Heart Maternal Grandfather CHF and Enlarged Heart Diabetes Paternal Grandmother other (Lung Problems) Paternal Grandmother Heart Paternal Grandfather MD Social History Tobacco Use Smoking status: Never Smokeless tobacco: Never Vaping Use Vaping Use: Never used Substance Use Topics Alcohol use: Yes Comment: Seldom. a couple times a year Drug use: No EXAM: BP 112/84 Pulse 94 Resp 16 Wt 123.8 kg (273 lb) LMP 12/01/2022 (Approximate) SpO2 96% BMI 44.67 kg/m PHYSICAL EXAM: General Appearance: Well appearing, alert, in no acute distress, well-hydrated, well nourished. Skin: Skin color, texture, turgor normal, no suspicious rashes or lesions. Head: Normocephalic, no masses, lesions, tenderness or abnormalities. Eyes: Anicteric sclera. Extraocular movements are intact. Neck: Supple, no adenopathy; thyroid symmetric, normal size, no bruits. Lungs: Lungs clear to auscultation. No wheezing, rhonchi, rales.. Heart: RRR without murmur, gallop, or rubs. No ectopy. Extremities: No deformities, edema, skin discoloration, clubbing or cyanosis. Good capillary refill. . Neurologic: Gait normal. ASSESSMENT/PLAN: 1. Type 2 diabetes mellitus with hyperglycemia, without long-term current use of insulin (HCC) - ICD9: 250.00, 790.29, ICD10: E11.65 (primary diagnosis) - Control undetermined, due for labs - Continue current medications - HGB A1C - LIPID PANEL, NONFASTING - CBC + DIFF - ALBUMIN/CREAT RATIO RND UR 2. Essential hypertension - ICD9: 401.9, ICD10: I10 - Controlled - Continue current medications - Recommend home blood pressure monitoring, to bring results to next visit - Encouraged sodium restriction, DASH or Mediterranean diet - Recommend regular aerobic exercise - COMP METABOLIC PANEL - CBC + DIFF 3. Elevated liver enzymes - ICD9: 790.5, ICD10: R74.8 - COMP METABOLIC PANEL 4. Osteoporosis, unspecified osteoporosis type, unspecified pathological fracture presence - ICD9: 733.00, ICD10: M81.0 - Reviewed the need for Calcium and Vitamin D supplements and weight bearing exercise as tolerated - VITAMIN D 25 HYDROXY Stopped the fosamax d/t GI upset. She did show improvement on her last dexa. Discussed possible injectable treatment. She will consider and let us know. 5. Anxiety and depression - ICD9: 300.00, 311, ICD10: F41.9, F32.A Increase the fluoxetine to 60 mg daily. Recheck in a month. - FLUOXETINE 20 MG CAPSULE 6. Encounter for immunization - ICD9: V03.89, ICD10: Z23 - INFLUENZA VACCINE, AGE 6 MO - 64 YR, QUADRIVALENT (AFLURIA, FLULAVAL, FLUZONE) Discussed treatment plan and patient voices understanding. Patient's questions answered appropriately. Medications and potential side effects were discussed and patient voices understanding. Return to the office as scheduled or as needed for worsening/no improvement. Savita Griffith APRN.CHUTE BOSS documented in this encounter [facility] 07-01-2023 Miscellaneous Notes Patient phones requesting refills as follows: Requested Prescriptions Pending Prescriptions Disp Refills calcium-cholecalciferol, D3, (OSCAL+D 250) 250 mg-3.125 mcg (125 unit) per tablet 60 tablet 11 Sig: Take 1 tablet by mouth two times a day. [facility] 01/15/23 NOV 07/27/23 Please review and advise. Charly Pyle LPN documented in this encounter [facility] 06-29-2023 Miscellaneous Notes This was completed on another refill encounter. documented in this encounter [facility] 06-29-2023 Miscellaneous Notes Dena--01/15/23 Nov--07/27/23 Metformin er --12/13/22 60 with 5 refills Last labs--01/15/23 documented in this encounter [facility] 06-29-2023 Miscellaneous Notes Dena-- 01/15/23 Nov--07/27/23 Last refill--12/06/22 30 with 1 refill Last labs--01/15/23 documented in this encounter [facility] 06-27-2023 Note HNO ID: [id number] Author: Monica Manuel APRN.ALLAN Service: ? Author Type: Nurse Practitioner Type: Progress Notes Filed: 06/27/2023 2:14 PM Note Text: Chief Complaint Patient presents with: Established Patient HPI: Silvia Miller is a 48 year old female who presents here today for follow up breast cancer. Per Dr. Pool's previous note: H/o appreciated a lump in her left breast in the summer of 2011. She thought perhaps it was something benign based on a biopsy for a different lesion she had done when she was . However, this lump increased in size by July and then she noted further increase after the first of the year. Presented to [facility] at [facility] and was referred here for mammogram and US. 11/09/12: Bilateral mammograms show no abnormality in the right breast. In the left breast at the site of the palpable finding there is a lobular 3.5 x 4.5 cm nodule in the upper outer left breast. A smaller oval 1.4 x 0.6 cm nodule is seen near the 230 o'clock position of left breast. Computer assisted detection (CAD) was employed and reviewed in the interpretation of this exam. Targeted ultrasound shows that the palpable mass is hypoechoic and lobular in form measuring approximately 4.0 x 4.7 x 2.7 cm. There is no shadowing, and the lesion is wider than tall. The appearance is suspicious for breast cancer, though atypical fibroadenoma could have this appearance. Surgical consultation is recommended. No abnormality is seen to correlate with the smaller benign appearing nodular like density seen mammographically at 230 o'clock. IMPRESSION: Suspicious lesion in the left breast for which surgical consultation is recommended. LEFT BREAST: CATEGORY 4, suspicious. Surgical consultation recommended. RIGHT BREAST: CATEGORY 2, benign. Annual mammograms are recommended. OVERALL RECOMMENDATION: Surgical consultation recommended for the abnormal appearing palpable mass at the upper outer left breast. Underwent excisional biopsy 11/22/12 for possible fibroadenoma. Final pathology: Left breast, mass, unoriented excision (A) - Metaplastic carcinoma with heterologous elements including chondroid matrix production, see comment. YANN/paulino 11/24/2012 COMMENT Specimen Laterality: Left Procedure: Type: Unoriented excision Wire localization: Absent Lymph Node Sampling: No lymph nodes present Tumor Size: (Size of Largest Invasive Carcinoma ) Greatest dimension of largest focus of invasion over 0.1 cm: 4.0 cm Tumor Focality: Single focus of invasive carcinoma Extent of Tumor: Skin: Not applicable Nipple: Not applicable Chest wall: Skeletal muscle is absent Margins: Invasive carcinoma Positive at the unoriented margin of excision DCIS: Not applicable Histologic Type of Invasive Carcinoma: Metaplastic carcinoma with heterologous elements Histologic Grade: Glandular (Acinar)/Tubular Differentiation: 3 Nuclear Grade: 3 Mitotic Rate: 3 Overall Jarrett Balderrama Grade: III Lymph-Vascular Invasion: Not definitively identified Ductal Carcinoma In Situ (DCIS): Not applicable Lymph Nodes: Not applicable G2002. Pre-eclampsia with first . Wasn't on OCPs; Depoprovera. Neoadj: Completed AC/taxol. Underwent left needle localization partial mastectomy and sentinel node biopsy with possible axillary dissection on 04/12/[address] Li and Left Breast Oncoplasty and Right Breast Reduction by Dr. Alvarado. Pathology: FINAL DIAGNOSIS 1. Left breast, partial mastectomy (A) - Fibrocystic changes with sclerosing adenosis and fibrosis. - Prior Biopsy site changes. - No residual malignancy is seen. 2. Left sentinel lymph node, excision (B) - Three lymph nodes negative for malignancy (0/3). 3. Left breast, anterior margin, excision (C) - Benign fibroadipose tissue. - Biopsy site changes. 4. Left breast, medial margin, excision (D) - Benign fibroadipose tissue. 5. Left breast, superior margin, excision (E) - Benign fibroadipose tissue and skeletal muscle. 6. Left breast, lateral margin, excision (F) - Benign fibroadipose tissue and skeletal muscle. - Fat necrosis. 7. Left breast, deep margin, excision (G) - Benign fibroadipose tissue, skeletal muscle and nerve. 8. Left breast tissue, excision (H) - Benign fibrofatty breast tissue and skin. 9. Right breast tissue, excision (I) - Benign fibrofatty breast tissue and skin. Robe Duarte M.D. HER2(ERBB2) Gene Amplification: NOT AMPLIFIED Estrogen receptor: Positive (5%) Stain intensity: Weak Progesterone receptor: Negative (0%) Stain intensity: Not applicable Completed Radiation:06/06/13 to 07/19/13 Started tamoxifen 2012. LMP 12/2012. Pt. was on vacation in [place] and had a large amount of vaginal bleeding-January 16, was seen in ED in [place] Has been taking tamoxifen. LMP:December 2012. Was seen by AUTHORIZATION REPRESENTATIVE/Jan. Given Aygestin 5 mg for 12 days on 02/08/14. Bx done. Wa (more content not included)... [facility] 06-27-2023 History of Presen t illness Narrative Chief Complaint Patient presents with: Established Patient HPI: Silvia Miller is a 48 year old female who presents here today for follow up breast cancer. Per Dr. Pool's previous note: H/o appreciated a lump in her left breast in the summer of 2011. She thought perhaps it was something benign based on a biopsy for a different lesion she had done when she was . However, this lump increased in size by July and then she noted further increase after the first of the year. Presented to [facility] at [facility] and was referred here for mammogram and US. 11/09/12: Bilateral mammograms show no abnormality in the right breast. In the left breast at the site of the palpable finding there is a lobular 3.5 x 4.5 cm nodule in the upper outer left breast. A smaller oval 1.4 x 0.6 cm nodule is seen near the 230 o'clock position of left breast. Computer assisted detection (CAD) was employed and reviewed in the interpretation of this exam. Targeted ultrasound shows that the palpable mass is hypoechoic and lobular in form measuring approximately 4.0 x 4.7 x 2.7 cm. There is no shadowing, and the lesion is wider than tall. The appearance is suspicious for breast cancer, though atypical fibroadenoma could have this appearance. Surgical consultation is recommended. No abnormality is seen to correlate with the smaller benign appearing nodular like density seen mammographically at 230 o'clock. IMPRESSION: Suspicious lesion in the left breast for which surgical consultation is recommended. LEFT BREAST: CATEGORY 4, suspicious. Surgical consultation recommended. RIGHT BREAST: CATEGORY 2, benign. Annual mammograms are recommended. OVERALL RECOMMENDATION: Surgical consultation recommended for the abnormal appearing palpable mass at the upper outer left breast. Underwent excisional biopsy 11/22/12 for possible fibroadenoma. Final pathology: Left breast, mass, unoriented excision (A) - Metaplastic carcinoma with heterologous elements including chondroid matrix production, see comment. JJR/paulino 11/24/2012 COMMENT Specimen Laterality: Left Procedure: Type: Unoriented excision Wire localization: Absent Lymph Node Sampling: No lymph nodes present Tumor Size: (Size of Largest Invasive Carcinoma ) Greatest dimension of largest focus of invasion over 0.1 cm: 4.0 cm Tumor Focality: Single focus of invasive carcinoma Extent of Tumor: Skin: Not applicable Nipple: Not applicable Chest wall: Skeletal muscle is absent Margins: Invasive carcinoma Positive at the unoriented margin of excision DCIS: Not applicable Histologic Type of Invasive Carcinoma: Metaplastic carcinoma with heterologous elements Histologic Grade: Glandular (Acinar)/Tubular Differentiation: 3 Nuclear Grade: 3 Mitotic Rate: 3 Overall Jarrett Balderrama Grade: III Lymph-Vascular Invasion: Not definitively identified Ductal Carcinoma In Situ (DCIS): Not applicable Lymph Nodes: Not applicable G2002. Pre-eclampsia with first . Wasn't on OCPs; Depoprovera. Neoadj: Completed AC/taxol. Underwent left needle localization partial mastectomy and sentinel node biopsy with possible axillary dissection on 04/12/[address] Li and Left Breast Oncoplasty and Right Breast Reduction by Dr. Alvarado. Pathology: FINAL DIAGNOSIS 1. Left breast, partial mastectomy (A) - Fibrocystic changes with sclerosing adenosis and fibrosis. - Prior Biopsy site changes. - No residual malignancy is seen. 2. Left sentinel lymph node, excision (B) - Three lymph nodes negative for malignancy (0/3). 3. Left breast, anterior margin, excision (C) - Benign fibroadipose tissue. - Biopsy site changes. 4. Left breast, medial margin, excision (D) - Benign fibroadipose tissue. 5. Left breast, superior margin, excision (E) - Benign fibroadipose tissue and skeletal muscle. 6. Left breast, lateral margin, excision (F) - Benign fibroadipose tissue and skeletal muscle. - Fat necrosis. 7. Left breast, deep margin, excision (G) - Benign fibroadipose tissue, skeletal muscle and nerve. 8. Left breast tissue, excision (H) - Benign fibrofatty breast tissue and skin. 9. Right breast tissue, excision (I) - Benign fibrofatty breast tissue and skin. Robe Duarte M.D. HER2(ERBB2) Gene Amplification: NOT AMPLIFIED Estrogen receptor: Positive (5%) Stain intensity: Weak Progesterone receptor: Negative (0%) Stain intensity: Not applicable Completed Radiation:06/06/13 to 07/19/13 Started tamoxifen 2012. LMP 12/2012. Pt. was on vacation in [facility] and had a large amount of vaginal bleeding-January 16, was seen in ED in [facility]. Has been taking tamoxifen. LMP:December 2012. Was seen by AUTHORIZATION REPRESENTATIVE/Jan. Given Aygestin 5 mg for 12 days on 02/08/14. Bx done. Was admitted to [facility] for PE over the weekend February 16-. Told to stop aygestin 02/18/14. Current therapy:femara/zoladex. Started zoladex 05/28/14. LMP:04/14/14. Pt. had previously been on arimidex/aromasin-both stopped d/t joint/bones aches/pains. Completed xarelto therapy fall 2013. Had MRI breast in November 2020- neg. Although did show a ? liver lesion. MRI liver in December 2020-MANUEL. No new concerns today. Appetite: Good. Energy level: Pretty good. Denies fevers or recent illness. Resp:denies cough or sob Cardiac:denies chest pain/palpitations GI:denies abd pain, +nausea since starting trulicity- it's when I take the shot , last EGD/Cscope done March 2023-next due in 10 years, denies vomiting, moving bowels regularly :denies dysuria/hematuria Extrem:denies pain to back/bones/joints Endo:denies hot flashes Neuro:finger tip tingling Skin:denies rashes/lesions Heme: My periods are random. I never know when I'm gonna have one. AUTHORIZATION REPRESENTATIVE following recent pelvic US-MANUEL. The ROS is otherwise negative. Past medical history, appointments, medications, allergies reviewed. No changes. EXAM: BP 108/74 Pulse 91 Temp 36.6 C (97.9 F) Ht 166.5 cm (5' 5.55 ) Wt 124.1 kg (273 lb 8 oz) LMP 12/01/2022 (Approximate) SpO2 95% BMI 44.75 kg/m APPEARANCE Well appearing, alert, in no acute distress, well-hydrated, well nourished. HEART RRR with normal S1 and S2, no murmurs LUNG clear to auscultation BREAST FEMALE R no mass/nodule/surgical scars, L stable 3cm mass to upper/radiation changes/surgical scars, b/l fibrocystic changes LYMPH NODES No cervical lymphadenopathy, No supraclavicular lymphadenopathy, and No axillary lymphadenopathy. ABDOMEN bowel sounds normoactive, soft, non-tender EXTREMITIES No edema NEURO Awake, alert and oriented x 3, Normal gait, and No involuntary motions. SKIN Skin color, texture, turgor normal, no suspicious rashes or lesions ASSESSMENT/PLAN: 1. 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 - No concerning findings on exam. - Completed AI/zoladex therapy. - Stopped femara 12/09/21. She did not tolerate AI's d/t joint pain. She began tamoxifen 2012. - Imaging/mamm/MRI per breast center. - Pt. will my chart breast center-overdue for OV and MRI. - Follow up with PCP/AUTHORIZATION REPRESENTATIVE as scheduled. - Follow up in 6 months. - Pt. aware to call office with any questions/concerns. The patient indicates understanding of these issues and agrees with the plan. All documentation from previous visit of 12/27/22-Dr. Pool/myself was copied and pasted, documentation has been reviewed and edited as necessary for today's visit. Monica Manuel APRN.ALLAN documented in this encounter [facility] 06-24-2023 Miscellaneous Notes Patient called in and was informed ok to keep appointment as is. Nurse checked with provider and provider said it is ok to leave pt's apt as is 3RD Attempt: No answer and unable to LM due to no VM set up Asked nurse if apt should stay scheduled or should be scheduled Last read by Silvia Miller at 3:40 PM on 06/22/2023. Pt read [facility] message. Has not called to reschedule yet 2nd attempt made to contact patient. No answer and there is no voicemail box set up. I did send the patient a MyChart Message Shira Denis Pss Attempted to contact patient to reschedule 06/27 OV to make room for BMBX, but no answer/no voicemail. Kusum Barker documented in this encounter [facility] 05-30-2023 Miscellaneous Notes DENA 01/15/23 Scheduled 07/27/23 documented in this encounter [facility] 03-09-2023 Miscellaneous Notes Patient has been identified by name and date of : Yes Requested Prescriptions Pending Prescriptions Disp Refills losartan (COZAAR) 100 mg tablet 30 tablet 5 Sig: Take 1 tablet by mouth once daily. RX INSTRUCTIONS: Patient aware RX will be sent to pharmacy. No need to notify patient. Follow up scheduled in Kristopher Christensen LPN documented in this encounter [facility] 03-09-2023 Note HNO ID: [id number] Author: Leslie Ramirez APRN.CHUTE BOSS Service: ? Author Type: Nurse Practitioner Type: Progress Notes Filed: 03/09/2023 11:26 AM Note Text: Subjective Patient came in with complaints of dental pain on the right upper and lower jaw. Patient says she often suffers of tooth infections. Patient is attempting to get a dentist at this time. Patient denies fevers nausea vomiting chills. The history is provided by the patient. No medical language specialist was used. Dental Problem Review of Systems Constitutional: Negative. Skin: Negative. Objective Physical Exam Constitutional: Appearance: Normal appearance. HENT: Mouth/Throat: Comments: Experiencing pain in the areas marked above significant dental caries noted. Pulmonary: Effort: Pulmonary effort is normal. Neurological: Mental Status: She is alert. 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 She is on Femara and Zoladex. Depression GERD (gastroesophageal reflux disease) hiatal hernia, egd Hiatal hernia 20 mg of Prilosec HTN (hypertension) PE (pulmonary embolism) Triggered by treatment for uterine bleeding. Xaralto for one year. PAST SURGICAL HISTORY Procedure Laterality Date INSJ TUNNELED CTR VAD W/SUBQ PORT AGE 7 YR/> 12/13/12 Right Subclavian LIG/TRNSXJ FLP TUBE ABDL/VAG APPR UNI/BI 11/27/2001 MASTECTOMY, PARTIAL Left 04/12/2013 PAST SURGICAL HISTORY OF 11/12/2012 left breast lumpectomy REDUCTION OF LARGE BREAST Bilateral Breast reduction ALLERGIES Nitrofurantoin, Lisinopril, Phenazopyridine, and Toradol [Ketorolac Tromethamine] MEDICATIONS dulaglutide (TRULICITY) 0.75 mg/0.5 mL pen injector Inject 0.75 mg subcutaneously one time a week. Inject dose once per week. Discard Pen After FLUoxetine (PROZAC) 40 mg capsule Take 1 capsule by mouth once daily. omeprazole (PRILOSEC) 20 mg capsule Take 1 capsule by mouth twice daily. acetaminophen (TYLENOL) 500 mg tablet Take 1,000 mg by mouth every 8 hours as needed. metFORMIN ER (GLUCOPHAGE XR) 500 mg 24 hr tablet Take 2 tablets by mouth daily with breakfast. tiZANidine (ZANAFLEX) 4 mg tablet Take 1 tablet by mouth every 8 hours as needed (muscle spasms). blood sugar diagnostic (BLOOD GLUCOSE TEST) test strip Test blood sugar(s) 1 times daily. Dx: Type 2 DM - Uncontrolled E11.65 Insulin: No hydroCHLOROthiazide (HYDRODIURIL, ESIDRIX) 25 mg tablet Take 1 tablet by mouth once daily. Lancets lancets Test blood sugar(s) 1 times daily. Dx: Type 2 DM - Uncontrolled E11.65 Insulin: No losartan (COZAAR) 100 mg tablet Take 1 tablet by mouth once daily. alendronate (FOSAMAX) 70 mg tablet Take 1 tablet by mouth one time a week. Take with a full glass of water, on an empty stomach; do NOT lie down for 30minutes. calcium-cholecalciferol, D3, (OSCAL+D 250) 250 mg-3.125 mcg (125 unit) per tablet Take 1 tablet by mouth twice daily. elderberry fruit (ELDERBERRY ORAL) Take 1,000 mg by mouth once daily. Blood Pressure Cuff - Home Use BLOOD PRESSURE CUFF FOR HOME USE. DX: LABILE BLOOD PRESSURE ascorbic acid (VITAMIN C) 500 mg tablet Take 500 mg by mouth once daily. multivitamin tablet Take 1 tablet by mouth once daily. amoxicillin (AMOXIL) 875 mg tablet Take 1 tablet by mouth twice daily for 5 days. FAMILY HISTORY Problem Relation Age of Onset Hypertension Mother A fib Stroke Mother 60 severe and has fully recovered Osteoporosis Mother Diabetes Father Heart Father 54 heart attack, CHF 2017 Hypertension Father A-Fib Stroke Father 57 Obesity Father other (Congestive Heart Failure) Father Cancer Maternal Grandmother bone cancer Diabetes Maternal Grandmother Breast Cancer Maternal Grandmother 78 other (Rapid Airway Disease) Son Heart Maternal Grandfather CHF and Enlarged Heart Diabetes Paternal Grandmother other (Lung Problems) Paternal Grandmother Heart Paternal Grandfather MD Social History Tobacco Use Smoking status: Never Smokeless tobacco: Never Vaping Use Vaping Use: Never used Substance Use Topics Alcohol use: Yes Comment: Seldom. a couple times a year Drug use: No ASSESSMENT/PLAN: 1. Pain, dental - ICD9: 525.9, ICD10: K08.89 - AMOXICILLIN 875 MG TABLET Was educated about proper use of medication supportive therapies. Red flag symptoms were discussed with patient and she should report to the ER if symptoms occur. Patient will call around and find a dentist for follow-up. Patient was okay with this care plan. Leslie Ramirez APRN.[facility] 03-09-2023 History of Presen t illness Narrative Images from the original note were not included. Subjective Patient came in with complaints of dental pain on the right upper and lower jaw. Patient says she often suffers of tooth infections. Patient is attempting to get a dentist at this time. Patient denies fevers nausea vomiting chills. The history is provided by the patient. No medical language specialist was used. Dental Problem Review of Systems Constitutional: Negative. Skin: Negative. Objective Physical Exam Constitutional: Appearance: Normal appearance. HENT: Mouth/Throat: Comments: Experiencing pain in the areas marked above significant dental caries noted. Pulmonary: Effort: Pulmonary effort is normal. Neurological: Mental Status: She is alert. 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 She is on Femara and Zoladex. Depression GERD (gastroesophageal reflux disease) hiatal hernia, egd Hiatal hernia 20 mg of Prilosec HTN (hypertension) PE (pulmonary embolism) Triggered by treatment for uterine bleeding. Xaralto for one year. PAST SURGICAL HISTORY Procedure Laterality Date INSJ TUNNELED CTR VAD W/SUBQ PORT AGE 7 YR/> 12/13/12 Right Subclavian LIG/TRNSXJ FLP TUBE ABDL/VAG APPR UNI/BI 11/27/2001 MASTECTOMY, PARTIAL Left 04/12/2013 PAST SURGICAL HISTORY OF 11/12/2012 left breast lumpectomy REDUCTION OF LARGE BREAST Bilateral Breast reduction ALLERGIES Nitrofurantoin, Lisinopril, Phenazopyridine, and Toradol [Ketorolac Tromethamine] MEDICATIONS dulaglutide (TRULICITY) 0.75 mg/0.5 mL pen injector Inject 0.75 mg subcutaneously one time a week. Inject dose once per week. Discard Pen After FLUoxetine (PROZAC) 40 mg capsule Take 1 capsule by mouth once daily. omeprazole (PRILOSEC) 20 mg capsule Take 1 capsule by mouth twice daily. acetaminophen (TYLENOL) 500 mg tablet Take 1,000 mg by mouth every 8 hours as needed. metFORMIN ER (GLUCOPHAGE XR) 500 mg 24 hr tablet Take 2 tablets by mouth daily with breakfast. tiZANidine (ZANAFLEX) 4 mg tablet Take 1 tablet by mouth every 8 hours as needed (muscle spasms). blood sugar diagnostic (BLOOD GLUCOSE TEST) test strip Test blood sugar(s) 1 times daily. Dx: Type 2 DM - Uncontrolled E11.65 Insulin: No hydroCHLOROthiazide (HYDRODIURIL, ESIDRIX) 25 mg tablet Take 1 tablet by mouth once daily. Lancets lancets Test blood sugar(s) 1 times daily. Dx: Type 2 DM - Uncontrolled E11.65 Insulin: No losartan (COZAAR) 100 mg tablet Take 1 tablet by mouth once daily. alendronate (FOSAMAX) 70 mg tablet Take 1 tablet by mouth one time a week. Take with a full glass of water, on an empty stomach; do NOT lie down for 30minutes. calcium-cholecalciferol, D3, (OSCAL+D 250) 250 mg-3.125 mcg (125 unit) per tablet Take 1 tablet by mouth twice daily. elderberry fruit (ELDERBERRY ORAL) Take 1,000 mg by mouth once daily. Blood Pressure Cuff - Home Use BLOOD PRESSURE CUFF FOR HOME USE. DX: LABILE BLOOD PRESSURE ascorbic acid (VITAMIN C) 500 mg tablet Take 500 mg by mouth once daily. multivitamin tablet Take 1 tablet by mouth once daily. amoxicillin (AMOXIL) 875 mg tablet Take 1 tablet by mouth twice daily for 5 days. FAMILY HISTORY Problem Relation Age of Onset Hypertension Mother A fib Stroke Mother 60 severe and has fully recovered Osteoporosis Mother Diabetes Father Heart Father 54 heart attack, CHF 2017 Hypertension Father A-Fib Stroke Father 57 Obesity Father other (Congestive Heart Failure) Father Cancer Maternal Grandmother bone cancer Diabetes Maternal Grandmother Breast Cancer Maternal Grandmother 78 other (Rapid Airway Disease) Son Heart Maternal Grandfather CHF and Enlarged Heart Diabetes Paternal Grandmother other (Lung Problems) Paternal Grandmother Heart Paternal Grandfather MD Social History Tobacco Use Smoking status: Never Smokeless tobacco: Never Vaping Use Vaping Use: Never used Substance Use Topics Alcohol use: Yes Comment: Seldom. a couple times a year Drug use: No ASSESSMENT/PLAN: 1. Pain, dental - ICD9: 525.9, ICD10: K08.89 - AMOXICILLIN 875 MG TABLET Was educated about proper use of medication supportive therapies. Red flag symptoms were discussed with patient and she should report to the ER if symptoms occur. Patient will call around and find a dentist for follow-up. Patient was okay with this care plan. Leslie Ramirez APRN.ALLAN documented in this encounter [facility] 03-08-2023 Miscellaneous Notes Patient has been identified by name and date of : Yes Patient phones for refill(s): Requested Prescriptions Pending Prescriptions Disp Refills dulaglutide (TRULICITY) 0.75 mg/0.5 mL pen injector 4 Each 0 Sig: Inject 0.75 mg subcutaneously one time a week. Inject dose once per week. Discard Pen After Date of last office visit in primary care: 01/15/2023 Please advise. Thank you. Maia Cruz LPN documented in this encounter [facility] 02-18-2023 Note HNO ID: [id number] Author: Dee Garcia PA-C Service: ? Author Type: Physician Flange Turner Type: Progress Notes Filed: 02/27/2023 9:36 PM Note Text: HISTORY AND PHYSICAL Silvia Miller 1975 REFERRING PHYSICIAN: Sukhdeep Muse MD CHIEF COMPLAINT: Consult (Increased GERD, omeprazole was increased) HPI: The patient is a 47 year old female referred for endoscopy. Silvia notes worsening GERD complaints despite taking PPI for 9 years. Notes diagnosis of hiatal hernia. She is also due for screening colonoscopy. Patient denies any change in bowel habits, weight changes, blood in stools, black tarry stools or abdominal pain. Denies family history of colon issues Denies problems with sedation in the past. 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 She is on Femara and Zoladex. Depression GERD (gastroesophageal reflux disease) hiatal hernia, egd Hiatal hernia 20 mg of Prilosec HTN (hypertension) PE (pulmonary embolism) Triggered by treatment for uterine bleeding. Xaralto for one year. PAST SURGICAL HISTORY Procedure Laterality Date INSJ TUNNELED CTR VAD W/SUBQ PORT AGE 7 YR/> 12/13/12 Right Subclavian LIG/TRNSXJ FLP TUBE ABDL/VAG APPR UNI/BI 11/27/2001 MASTECTOMY, PARTIAL Left 04/12/2013 PAST SURGICAL HISTORY OF 11/12/2012 left breast lumpectomy REDUCTION OF LARGE BREAST Bilateral Breast reduction Current Outpatient Medications Medication Sig dulaglutide (TRULICITY) 0.75 mg/0.5 mL pen injector Inject 0.75 mg subcutaneously one time a week. Inject dose once per week. Discard Pen After FLUoxetine (PROZAC) 40 mg capsule Take 1 capsule by mouth once daily. omeprazole (PRILOSEC) 20 mg capsule Take 1 capsule by mouth twice daily. acetaminophen (TYLENOL) 500 mg tablet Take 1,000 mg by mouth every 8 hours as needed. metFORMIN ER (GLUCOPHAGE XR) 500 mg 24 hr tablet Take 2 tablets by mouth daily with breakfast. tiZANidine (ZANAFLEX) 4 mg tablet Take 1 tablet by mouth every 8 hours as needed (muscle spasms). blood sugar diagnostic (BLOOD GLUCOSE TEST) test strip Test blood sugar(s) 1 times daily. Dx: Type 2 DM - Uncontrolled E11.65 Insulin: No hydroCHLOROthiazide (HYDRODIURIL, ESIDRIX) 25 mg tablet Take 1 tablet by mouth once daily. Lancets lancets Test blood sugar(s) 1 times daily. Dx: Type 2 DM - Uncontrolled E11.65 Insulin: No losartan (COZAAR) 100 mg tablet Take 1 tablet by mouth once daily. alendronate (FOSAMAX) 70 mg tablet Take 1 tablet by mouth one time a week. Take with a full glass of water, on an empty stomach; do NOT lie down for 30minutes. calcium-cholecalciferol, D3, (OSCAL+D 250) 250 mg-3.125 mcg (125 unit) per tablet Take 1 tablet by mouth twice daily. elderberry fruit (ELDERBERRY ORAL) Take 1,000 mg by mouth once daily. Blood Pressure Cuff - Home Use BLOOD PRESSURE CUFF FOR HOME USE. DX: LABILE BLOOD PRESSURE ascorbic acid (VITAMIN C) 500 mg tablet Take 500 mg by mouth once daily. multivitamin tablet Take 1 tablet by mouth once daily. No current facility-administered medications for this visit. ALLERGIES: Nitrofurantoin, Lisinopril, Phenazopyridine, and Toradol [Ketorolac Tromethamine] PERSONAL HISTORY: Social History Tobacco Use Smoking status: Never Smokeless tobacco: Never Vaping Use Vaping Use: Never used Substance Use Topics Alcohol use: Yes Comment: Seldom. a couple times a year Drug use: No FAMILY HISTORY: FAMILY HISTORY Problem Relation Age of Onset Hypertension Mother A fib Stroke Mother 60 severe and has fully recovered Osteoporosis Mother Diabetes Father Heart Father 54 heart attack, CHF 2017 Hypertension Father A-Fib Stroke Father 57 Obesity Father other (Congestive Heart Failure) Father Cancer Maternal Grandmother bone cancer Diabetes Maternal Grandmother Breast Cancer Maternal Grandmother 78 other (Rapid Airway Disease) Son Heart Maternal Grandfather CHF and Enlarged Heart Diabetes Paternal Grandmother other (Lung Problems) Paternal Grandmother Heart Paternal Grandfather MD REVIEW OF SYMPTOMS: The review of systems data was entered by the nurse and reviewed by nj Nursing Notes: Aminta Chan LPN 02/18/2023 1:07 PM Signed REVIEW OF SYSTEMS: General: The patient denies fatigue, denies weight loss, denies weight gain, denies feeling hot, and denies feelings of cold. Eyes: The patient denies glaucoma, denies eye injury/surgery, wears glasses or contacts. Ear/Nose/Throat: The patient notes allergies, denies hayfever, denies ear infections, and denies bloody noses. Cardiovascular: (more content not included)... [facility] 02-18-2023 History of Presen t illness Narrative HISTORY AND PHYSICAL Silvia Miller 1975 REFERRING PHYSICIAN: Sukhdeep Muse MD CHIEF COMPLAINT: Consult (Increased GERD, omeprazole was increased) HPI: The patient is a 47 year old female referred for endoscopy. Silvia notes worsening GERD complaints despite taking PPI for 9 years. Notes diagnosis of hiatal hernia. She is also due for screening colonoscopy. Patient denies any change in bowel habits, weight changes, blood in stools, black tarry stools or abdominal pain. Denies family history of colon issues Denies problems with sedation in the past. 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 She is on Femara and Zoladex. Depression GERD (gastroesophageal reflux disease) hiatal hernia, egd Hiatal hernia 20 mg of Prilosec HTN (hypertension) PE (pulmonary embolism) Triggered by treatment for uterine bleeding. Xaralto for one year. PAST SURGICAL HISTORY Procedure Laterality Date INSJ TUNNELED CTR VAD W/SUBQ PORT AGE 7 YR/> 12/13/12 Right Subclavian LIG/TRNSXJ FLP TUBE ABDL/VAG APPR UNI/BI 11/27/2001 MASTECTOMY, PARTIAL Left 04/12/2013 PAST SURGICAL HISTORY OF 11/12/2012 left breast lumpectomy REDUCTION OF LARGE BREAST Bilateral Breast reduction Current Outpatient Medications Medication Sig dulaglutide (TRULICITY) 0.75 mg/0.5 mL pen injector Inject 0.75 mg subcutaneously one time a week. Inject dose once per week. Discard Pen After FLUoxetine (PROZAC) 40 mg capsule Take 1 capsule by mouth once daily. omeprazole (PRILOSEC) 20 mg capsule Take 1 capsule by mouth twice daily. acetaminophen (TYLENOL) 500 mg tablet Take 1,000 mg by mouth every 8 hours as needed. metFORMIN ER (GLUCOPHAGE XR) 500 mg 24 hr tablet Take 2 tablets by mouth daily with breakfast. tiZANidine (ZANAFLEX) 4 mg tablet Take 1 tablet by mouth every 8 hours as needed (muscle spasms). blood sugar diagnostic (BLOOD GLUCOSE TEST) test strip Test blood sugar(s) 1 times daily. Dx: Type 2 DM - Uncontrolled E11.65 Insulin: No hydroCHLOROthiazide (HYDRODIURIL, ESIDRIX) 25 mg tablet Take 1 tablet by mouth once daily. Lancets lancets Test blood sugar(s) 1 times daily. Dx: Type 2 DM - Uncontrolled E11.65 Insulin: No losartan (COZAAR) 100 mg tablet Take 1 tablet by mouth once daily. alendronate (FOSAMAX) 70 mg tablet Take 1 tablet by mouth one time a week. Take with a full glass of water, on an empty stomach; do NOT lie down for 30minutes. calcium-cholecalciferol, D3, (OSCAL+D 250) 250 mg-3.125 mcg (125 unit) per tablet Take 1 tablet by mouth twice daily. elderberry fruit (ELDERBERRY ORAL) Take 1,000 mg by mouth once daily. Blood Pressure Cuff - Home Use BLOOD PRESSURE CUFF FOR HOME USE. DX: LABILE BLOOD PRESSURE ascorbic acid (VITAMIN C) 500 mg tablet Take 500 mg by mouth once daily. multivitamin tablet Take 1 tablet by mouth once daily. No current facility-administered medications for this visit. ALLERGIES: Nitrofurantoin, Lisinopril, Phenazopyridine, and Toradol [Ketorolac Tromethamine] PERSONAL HISTORY: Social History Tobacco Use Smoking status: Never Smokeless tobacco: Never Vaping Use Vaping Use: Never used Substance Use Topics Alcohol use: Yes Comment: Seldom. a couple times a year Drug use: No FAMILY HISTORY: FAMILY HISTORY Problem Relation Age of Onset Hypertension Mother A fib Stroke Mother 60 severe and has fully recovered Osteoporosis Mother Diabetes Father Heart Father 54 heart attack, CHF 2016 Hypertension Father A-Fib Stroke Father 57 Obesity Father other (Congestive Heart Failure) Father Cancer Maternal Grandmother bone cancer Diabetes Maternal Grandmother Breast Cancer Maternal Grandmother 78 other (Rapid Airway Disease) Son Heart Maternal Grandfather CHF and Enlarged Heart Diabetes Paternal Grandmother other (Lung Problems) Paternal Grandmother Heart Paternal Grandfather MD REVIEW OF SYMPTOMS: The review of systems data was entered by the nurse and reviewed by nj Nursing Notes: Aminta Chan LPN 02/18/2023 1:07 PM Signed REVIEW OF SYSTEMS: General: The patient denies fatigue, denies weight loss, denies weight gain, denies feeling hot, and denies feelings of cold. Eyes: The patient denies glaucoma, denies eye injury/surgery, wears glasses or contacts. Ear/Nose/Throat: The patient notes allergies, denies hayfever, denies ear infections, and denies bloody noses. Cardiovascular: The patient denies chest pain, denies heart disease, notes high blood pressure,denies cardiac stent, denies prior heart attack, denies irregular heart beat, denies high cholesterol, denies poor circulation, denies heart failure, other cardiac issues, denies claudication, denies cold feet, denies peripheral arterial stent. Respiratory: The patient denies tuberculosis, denies pneumonia, denies frequent cough, notes pulmonary embolism, denies shortness of breath, and denies coughing up blood. Gastrointestinal: The patient denies difficulty swallowing, notes acid reflux, denies ulcers, denies vomiting, denies jaundice/hepatitis, denies gallbladder problems, denies black or tarry stools, denies hemorrhoids, denies bleeding from rectum, denies diverticulitis, denies constipation, denies diarrhea, denies loss of stool control, and denies hernias. Kidney/Bladder: The patient denies kidney stones, notes urine infections, and denies bloody urine. Skin: The patient denies a history of skin cancer, denies bleeding/changing moles, and denies a history of skin rash. Neurologic: The patient denies a history of epilepsy/convulsions, notes headaches, denies head/spinal injuries, and denies stroke/TIA. Psychiatric: The patient denies psychiatric medications, notes depression, and denies voices, denies substance abuse. Endocrine: The patient denies thyroid disorders, notes diabetes, and denies hormonal problems. Hematologic: The patient denies a history of bruising, denies bleeding, and denies anemia, denies blood clots. Infections: The patient denies a history of measles and mumps, denies rheumatic fever, and denies sexually transmitted diseases. Musculoskeletal: The patient denies back pain/injury, denies back problems, notes sciatica, denies knee/foot trouble, notes arthritis, or denies gout. When was patient's last Mammogram screening? 2022 Last Colonoscopy: none Aminta Chan LPN I have confirmed and edited as necessary, the PFSH and ROS obtained by others. Dee Garcia PA-C PHYSICAL EXAMINATION: General: The patient is 47 year old female, well nourished, well hydrated in no acute distress. The patient is oriented to time, place, and person. VITALS: Blood pressure 126/78, pulse 117, temperature 37.1 C (98.8 F), height 167.6 cm (5' 6 ), weight 117.9 kg (260 lb), last menstrual period 12/01/2022, SpO2 96 %. Body mass index is 41.97 kg/m . HEENT: Normal cephalic, ataumatic, pupils are equally round, sclera are anicteric, mucous membranes are moist, oropharynx is clear. Neck has no masses, asymmetry or lymphadenopathy. Respiratory: Clear to auscultation and percussion. Normal respiratory excursion and pattern. Cardiac: Examination is regular rate and rhythm. Normal S1/S2 Abdominal exam: Soft, nontender, with no palpable masses. No hepatosplenomegaly. No palpable hernias. +right flank small cyst Extremities: no clubbing, cyanosis or edema. No adenopathy. LABORATORY VALUES: As Noted RADIOLOGIC STUDIES: As Noted Assessment IMPRESSION: screening colonoscopy. Right flank cyst vs lipoma PLAN: I have reviewed my findings with the surgeon. Will plan for upper and lower endoscopy. We discussed the risks and benefits of the planned endoscopy. I have informed the patient that complications can occur including failure to complete the endoscopy and perforation. The patient had the opportunity to ask questions concerning the planned endoscopy. My staff has also explained the procedure to the patient in understandable terms and has given the patient printed material concerning the procedure. The patient freely consents to surgery. I plan to use Golytely bowel preparation Patient offered excision for small lump right flank, will contact office to schedule if she decides to pursue this I have explained to the patient the difference between IV conscious sedation and MAC anesthesia - and I have offered either, according to the patient's wishes. I have explained that with IV conscious sedation there is no anesthesia provider available and therefore there is a limitation of the amount of IV medications that can be given and that the patient may wake up in the middle of the procedure and/or experience pain/discomfort during the procedure. Further discussion was done and the patient was given the opportunity to ask questions and all questions were answered. The patient chooses IV conscious sedation Diagnoses: (K44.9, K21.9) Hiatal hernia with GERD without esophagitis (Z12.11) Screening for colon cancer (R22.2) Lump of skin of back Consultation requested by Dr. uMse for an opinion regarding need for endoscopt. My final recommendations will be communicated back to the requesting physician by way of shared Medical record or letter to requesting physician via US mail. Dee Garcia PA-C documented in this encounter [facility] 02-18-2023 Nurse Note REVIEW OF SYSTEMS: General: The patient denies fatigue, denies weight loss, denies weight gain, denies feeling hot, and denies feelings of cold. Eyes: The patient denies glaucoma, denies eye injury/surgery, wears glasses or contacts. Ear/Nose/Throat: The patient notes allergies, denies hayfever, denies ear infections, and denies bloody noses. Cardiovascular: The patient denies chest pain, denies heart disease, notes high blood pressure,denies cardiac stent, denies prior heart attack, denies irregular heart beat, denies high cholesterol, denies poor circulation, denies heart failure, other cardiac issues, denies claudication, denies cold feet, denies peripheral arterial stent. Respiratory: The patient denies tuberculosis, denies pneumonia, denies frequent cough, notes pulmonary embolism, denies shortness of breath, and denies coughing up blood. Gastrointestinal: The patient denies difficulty swallowing, notes acid reflux, denies ulcers, denies vomiting, denies jaundice/hepatitis, denies gallbladder problems, denies black or tarry stools, denies hemorrhoids, denies bleeding from rectum, denies diverticulitis, denies constipation, denies diarrhea, denies loss of stool control, and denies hernias. Kidney/Bladder: The patient denies kidney stones, notes urine infections, and denies bloody urine. Skin: The patient denies a history of skin cancer, denies bleeding/changing moles, and denies a history of skin rash. Neurologic: The patient denies a history of epilepsy/convulsions, notes headaches, denies head/spinal injuries, and denies stroke/TIA. Psychiatric: The patient denies psychiatric medications, notes depression, and denies voices, denies substance abuse. Endocrine: The patient denies thyroid disorders, notes diabetes, and denies hormonal problems. Hematologic: The patient denies a history of bruising, denies bleeding, and denies anemia, denies blood clots. Infections: The patient denies a history of measles and mumps, denies rheumatic fever, and denies sexually transmitted diseases. Musculoskeletal: The patient denies back pain/injury, denies back problems, notes sciatica, denies knee/foot trouble, notes arthritis, or denies gout. When was patient's last Mammogram screening? 2022 Last Colonoscopy: none Aminta Chan LPN documented in this encounter [facility] 02-09-2023 Miscellaneous Notes Patient has been identified by name and date of : Yes, Provider Dr. Muse Date 02/09/23 Time 10:05 am Patient phones for refill(s): Requested Prescriptions Pending Prescriptions Disp Refills dulaglutide (TRULICITY) 0.75 mg/0.5 mL pen injector 4 Each 0 Sig: Inject 0.75 mg subcutaneously one time a week. Inject dose once per week. Discard Pen After Date of last office visit in primary care: 01/15/23 next pat 07/27/23 Last 2 Encounter Wt Readings: Date: Wt: 12/27/2022 118.4 kg (261 lb) 08/11/2022 118.4 kg (261 lb) Previous labs/tests for medication: Diabetes: Hemoglobin A1C (%) Date Value 01/15/2023 5.5 04/23/2022 11.9 08/22/2019 5.7 Hemoglobin A1C (POCT) (%) Date Value 08/11/2022 5.6 . Thank you. Renate Perez LPN documented in this encounter [facility] 01-19-2023 Note HNO ID: [id number] Author: RT Cindy(R) Service: ? Author Type: Technologist Type: Progress Notes Filed: 01/19/2023 10:04 AM Note Text: Radiology Service Progress Note PATIENT NAME: Silvia Miller DATE OF SERVICE: January 19, 2023 TIME: 9:53 AM PATIENT IDENTITY VERIFICATION COMPLETED USING TWO (2) IDENTIFIERS: Name and Date of confirmed by patient verbally. FALL SCREENING: Has the patient had 2 falls in the last year or 1 fall with injury or currently using an Ambulatory Assistive Device (Walker, Cane, Wheelchair, Crutches, etc.)? No PATIENT GENDER DATA: Female. status: : No status: NO. PATIENT RELEVANT IMPLANT DATA REVIEWED: Not Applicable RADIOLOGY DEPARTMENT: Bone Density PERIPHERAL IV DATA: Not applicable SIGNED BY: RT Cindy(R) January 19, 2023 9:53 AM [facility] 01-15-2023 Note HNO ID: [id number] Author: Sukhdeep Muse MD Service: ? Author Type: Physician Type: Progress Notes Filed: 01/15/2023 9:55 AM Note Text: Patient presents with: Acute Visit: lump on right side HPI: Patient presents today for office visit for acute visit. Complains of lump. Is occasionally sore to touch. Noticed about a month ago. Not hot or red. Not changing. Is still following with Monica for breast cancer. DM:doing well with sugars. Usually checking sugars bid. No hypogllycemic spells. PSYCH:feels it could be bumped up. Is more down. No new stresses. No suicidal ideation. HYPERTENSION:no chest pain No shortness of breath. No edema. GERD:having increased gerd. Reviewed risk factors for gerd. No black or bloody stools. Osteoporosis: remains on fosamax. Due for repeat density. MEDICATIONS: Current Outpatient Medications Medication Sig dulaglutide (TRULICITY) 0.75 mg/0.5 mL pen injector Inject 0.75 mg subcutaneously one time a week. Inject dose once per week. Discard Pen After acetaminophen (TYLENOL) 500 mg tablet Take 1,000 mg by mouth every 8 hours as needed. metFORMIN ER (GLUCOPHAGE XR) 500 mg 24 hr tablet Take 2 tablets by mouth daily with breakfast. FLUoxetine (PROZAC) 20 mg capsule Take 1 capsule by mouth once daily. tiZANidine (ZANAFLEX) 4 mg tablet Take 1 tablet by mouth every 8 hours as needed (muscle spasms). omeprazole (PRILOSEC) 20 mg capsule Take 1 capsule by mouth daily before breakfast. 1/2 hr before meal. blood sugar diagnostic (BLOOD GLUCOSE TEST) test strip Test blood sugar(s) 1 times daily. Dx: Type 2 DM - Uncontrolled E11.65 Insulin: No hydroCHLOROthiazide (HYDRODIURIL, ESIDRIX) 25 mg tablet Take 1 tablet by mouth once daily. Lancets lancets Test blood sugar(s) 1 times daily. Dx: Type 2 DM - Uncontrolled E11.65 Insulin: No losartan (COZAAR) 100 mg tablet Take 1 tablet by mouth once daily. alendronate (FOSAMAX) 70 mg tablet Take 1 tablet by mouth one time a week. Take with a full glass of water, on an empty stomach; do NOT lie down for 30minutes. calcium-cholecalciferol, D3, (OSCAL+D 250) 250 mg-3.125 mcg (125 unit) per tablet Take 1 tablet by mouth twice daily. elderberry fruit (ELDERBERRY ORAL) Take 1,000 mg by mouth once daily. Blood Pressure Cuff - Home Use BLOOD PRESSURE CUFF FOR HOME USE. DX: LABILE BLOOD PRESSURE ascorbic acid (VITAMIN C) 500 mg tablet Take 500 mg by mouth once daily. multivitamin tablet Take 1 tablet by mouth once daily. No current facility-administered medications for this visit. 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 She is on Femara and Zoladex. GERD (gastroesophageal reflux disease) hiatal hernia, egd Hiatal hernia 20 mg of Prilosec HTN (hypertension) PE (pulmonary embolism) Triggered by treatment for uterine bleeding. Xaralto for one year. PAST SURGICAL HISTORY Procedure Laterality Date INSJ TUNNELED CTR VAD W/SUBQ PORT AGE 7 YR/> 12/13/12 Right Subclavian LIG/TRNSXJ FLP TUBE ABDL/VAG APPR UNI/BI 11/27/2001 MASTECTOMY, PARTIAL Left 04/12/2013 PAST SURGICAL HISTORY OF 11/12/2012 left breast lumpectomy REDUCTION OF LARGE BREAST Bilateral Breast reduction FAMILY HISTORY Problem Relation Age of Onset Hypertension Mother A fib Stroke Mother 60 severe and has fully recovered Osteoporosis Mother Diabetes Father Heart Father 54 heart attack, CHF 2017 Hypertension Father A-Fib Stroke Father 57 Obesity Father other (Congestive Heart Failure) Father Cancer Maternal Grandmother bone cancer Diabetes Maternal Grandmother Breast Cancer Maternal Grandmother 78 other (Rapid Airway Disease) Son Heart Maternal Grandfather CHF and Enlarged Heart Diabetes Paternal Grandmother other (Lung Problems) Paternal Grandmother Heart Paternal Grandfather MD Social History Tobacco Use Smoking status: Never Smokeless tobacco: Never Vaping Use Vaping Use: Never used Substance Use Topics Alcohol use: Yes Comment: Seldom. a couple times a year Drug use: No Reviewed current medications, allergies, past medical history, surgical history, family history and social history today. REVIEW OF SYSTEMS All other reviewed and negative other than HPI. HEALTH MAINTENANCE: Reviewed health maintenance issues today and recommended the following in detail. HEPATITIS B(1 of 3 - 3-dose series) Never done COVID-19 (more content not included)... [facility] 12-27-2022 Note HNO ID: [id number] Author: RT Sp(R) Service: ? Author Type: Plate Embosser Type: Progress Notes Filed: 12/27/2022 8:55 AM Note Text: Radiology Service Progress Note PATIENT NAME: Silvia Miller DATE OF SERVICE: December 27, 2022 TIME: 8:42 AM PATIENT IDENTITY VERIFICATION COMPLETED USING TWO (2) IDENTIFIERS: Name and Date of confirmed by patient verbally. FALL SCREENING: Has the patient had 2 falls in the last year or 1 fall with injury or currently using an Ambulatory Assistive Device (Walker, Cane, Wheelchair, Crutches, etc.)? No PATIENT GENDER DATA: Female. status: : No status: NO. PATIENT RELEVANT IMPLANT DATA REVIEWED: Yes RADIOLOGY DEPARTMENT: General X-ray: Exam(s) Completed: Rib X-Ray: Left PERIPHERAL IV DATA: Not applicable SIGNED BY: RT Sp(R) December 27, 2022 8:42 AM [facility] 12-27-2022 Note HNO ID: [id number] Author: Monica Manuel APRN.CHUTE [employer]OSS Service: ? Author Type: Nurse Practitioner Type: Progress Notes Filed: 12/28/2022 12:57 PM Note Text: Chief Complaint Patient presents with: Established Patient HPI: Silvia Miller is a 47 year old female who presents here today for follow up breast cancer. Per Dr. Pool's previous note: H/o appreciated a lump in her left breast in the summer of 2011. She thought perhaps it was something benign based on a biopsy for a different lesion she had done when she was . However, this lump increased in size by July and then she noted further increase after the first of the year. Presented to [facility] and was referred here for mammogram and US. 11/09/12: Bilateral mammograms show no abnormality in the right breast. In the left breast at the site of the palpable finding there is a lobular 3.5 x 4.5 cm nodule in the upper outer left breast. A smaller oval 1.4 x 0.6 cm nodule is seen near the 230 o'clock position of left breast. Computer assisted detection (CAD) was employed and reviewed in the interpretation of this exam. Targeted ultrasound shows that the palpable mass is hypoechoic and lobular in form measuring approximately 4.0 x 4.7 x 2.7 cm. There is no shadowing, and the lesion is wider than tall. The appearance is suspicious for breast cancer, though atypical fibroadenoma could have this appearance. Surgical consultation is recommended. No abnormality is seen to correlate with the smaller benign appearing nodular like density seen mammographically at 230 o'clock. IMPRESSION: Suspicious lesion in the left breast for which surgical consultation is recommended. LEFT BREAST: CATEGORY 4, suspicious. Surgical consultation recommended. RIGHT BREAST: CATEGORY 2, benign. Annual mammograms are recommended. OVERALL RECOMMENDATION: Surgical consultation recommended for the abnormal appearing palpable mass at the upper outer left breast. Underwent excisional biopsy 11/22/12 for possible fibroadenoma. Final pathology: Left breast, mass, unoriented excision (A) - Metaplastic carcinoma with heterologous elements including chondroid matrix production, see comment. JJR/paulino 11/24/2012 COMMENT Specimen Laterality: Left Procedure: Type: Unoriented excision Wire localization: Absent Lymph Node Sampling: No lymph nodes present Tumor Size: (Size of Largest Invasive Carcinoma ) Greatest dimension of largest focus of invasion over 0.1 cm: 4.0 cm Tumor Focality: Single focus of invasive carcinoma Extent of Tumor: Skin: Not applicable Nipple: Not applicable Chest wall: Skeletal muscle is absent Margins: Invasive carcinoma Positive at the unoriented margin of excision DCIS: Not applicable Histologic Type of Invasive Carcinoma: Metaplastic carcinoma with heterologous elements Histologic Grade: Glandular (Acinar)/Tubular Differentiation: 3 Nuclear Grade: 3 Mitotic Rate: 3 Overall Jarrett Balderrama Grade: III Lymph-Vascular Invasion: Not definitively identified Ductal Carcinoma In Situ (DCIS): Not applicable Lymph Nodes: Not applicable G2002. Pre-eclampsia with first . Wasn't on OCPs; Depoprovera. Neoadj: Completed AC/taxol. Underwent left needle localization partial mastectomy and sentinel node biopsy with possible axillary dissection on 04/12/[address] Li and Left Breast Oncoplasty and Right Breast Reduction by Dr. Alvarado. Pathology: FINAL DIAGNOSIS 1. Left breast, partial mastectomy (A) - Fibrocystic changes with sclerosing adenosis and fibrosis. - Prior Biopsy site changes. - No residual malignancy is seen. 2. Left sentinel lymph node, excision (B) - Three lymph nodes negative for malignancy (0/3). 3. Left breast, anterior margin, excision (C) - Benign fibroadipose tissue. - Biopsy site changes. 4. Left breast, medial margin, excision (D) - Benign fibroadipose tissue. 5. Left breast, superior margin, excision (E) - Benign fibroadipose tissue and skeletal muscle. 6. Left breast, lateral margin, excision (F) - Benign fibroadipose tissue and skeletal muscle. - Fat necrosis. 7. Left breast, deep margin, excision (G) - Benign fibroadipose tissue, skeletal muscle and nerve. 8. Left breast tissue, excision (H) - Benign fibrofatty breast tissue and skin. 9. Right breast tissue, excision (I) - Benign fibrofatty breast tissue and skin. Robe Duarte M.D. HER2(ERBB2) Gene Amplification: NOT AMPLIFIED Estrogen receptor: Positive (5%) Stain intensity: Weak Progesterone receptor: Negative (0%) Stain intensity: Not applicable Completed Radiation:06/06/13 to 07/19/13 Started tamoxifen 2012. LMP 12/2012. Pt. was on vacation in [facility] and had a large amount of vaginal bleeding-January 16, was seen in [place] in [place] Has been taking tamoxifen. LMP:December 2012. Was seen by AUTHORIZATION REPRESENTATIVE/Tizzano. Given Aygestin 5 mg for 12 days on 02/08/14. Bx done. Was (more content not included)... [facility] 12-13-2022 Miscellaneous Notes Patient has been identified by name and date of : Yes Requested Prescriptions Pending Prescriptions Disp Refills metFORMIN ER (GLUCOPHAGE XR) 500 mg 24 hr tablet 60 tablet 5 Sig: Take 2 tablets by mouth daily with breakfast. FLUoxetine (PROZAC) 20 mg capsule 30 capsule 5 Sig: Take 1 capsule by mouth once daily. RX INSTRUCTIONS: Patient aware RX will be sent to pharmacy. No need to notify patient. Scheduled 02/09/23 Leni Christensen LPN documented in this encounter [facility] 11-09-2022 Miscellaneous Notes Patient has been identified by name and date of : Yes, Provider Dr. Muse Date 11/09/22 Time 11:50 am Patient phones for refill(s): Requested Prescriptions Pending Prescriptions Disp Refills FLUoxetine (PROZAC) 20 mg capsule 30 capsule 1 Sig: Take 1 capsule by mouth once daily. Start after taking 10 mg for a week. Date of last office visit in primary care: 08/11/22 next apt 02/09/23 Last 2 Encounter Wt Readings: Date: Wt: 08/11/2022 118.4 kg (261 lb) 06/25/2022 122 kg (269 lb) Previous labs/tests for medication: Not applicable Thank you. Renate Perez LPN documented in this encounter [facility] 10-27-2022 Note HNO ID: [id number] Author: Abby Zelaya [employer] Service: ? Author Type: Plate Embosser Type: Progress Notes Filed: 10/27/2022 2:55 PM Note Text: Radiology Service Progress Note PATIENT NAME: Silvia Miller DATE OF SERVICE: October 27, 2022 TIME: 2:54 PM PATIENT IDENTITY VERIFICATION COMPLETED USING TWO (2) IDENTIFIERS: Name and Date of confirmed by patient verbally. FALL SCREENING: Has the patient had 2 falls in the last year or 1 fall with injury or currently using an Ambulatory Assistive Device (Walker, Cane, Wheelchair, Crutches, etc.)? No PATIENT GENDER DATA: Female. status: : No status: NO. PATIENT RELEVANT IMPLANT DATA REVIEWED: Yes RADIOLOGY DEPARTMENT: Mammography PERIPHERAL IV DATA: Not applicable SIGNED BY: Abby Zelaya [employer]Net October 27, 2022 2:54 PM [facility] 10-14-2022 Miscellaneous Notes Patient phones requesting refills as follows: Requested Prescriptions Pending Prescriptions Disp Refills dulaglutide (TRULICITY) 0.75 mg/0.5 mL pen injector 4 Each 0 Sig: Inject 0.75 mg subcutaneously one time a week. Inject dose once per week. Discard Pen After [facility]-08/11/22 Labs-07/29/22Jul-02/09/23 med filled 09/16/22 Please review and advise. Christa Tran LPN documented in this encounter [facility] 10-11-2022 Miscellaneous Notes Patient phones requesting refills as follows: Requested Prescriptions Pending Prescriptions Disp Refills metFORMIN ER (GLUCOPHAGE XR) 500 mg 24 hr tablet 60 tablet 1 Sig: Take one tablet once daily X 1 week; then increase to twice daily. [facility] 08/11/22 02/09/23 Please review and advise. Charly Pyle LPN documented in this encounter [facility] 09-08-2022 Miscellaneous Notes Patient phones requesting refills as follows: Requested Prescriptions Pending Prescriptions Disp Refills FLUoxetine (PROZAC) 20 mg capsule 30 capsule 1 Sig: Take 1 capsule by mouth once daily. Start after taking 10 mg for a week. [facility] 08/11/22 02/09/23 Please review and advise. Charly Pyle LPN documented in this encounter [facility] 08-11-2022 Instructions Savita Griffith APRN.ALLAN - 08/11/2022 11:54 AM EST Keep up the good work!!!! Continue the same medications. Okay to postpone the appt for 6 months. documented in this encounter [facility] [facility] 08-11-2022 History of Presen t illness Narrative This is a 47 year old female who presents today with: Patient presents with: Recheck: 3 month follow up- DM HISTORY OF PRESENT ILLNESS: Silvia Miller is a 47 year old female. Patient presents with: Recheck: 3 month follow up- DM DM: Reports overall feeling well. Medication side effects: initially had some nausea. . Home sugar checks: checking twice daily. -- around 90-108. Hypoglycemic spells: No. Lowest was 71. Watching diet: Yes. Watching carbs. Unexpected weight loss: No. Polyuria, polydipsia: No. Vision Changes: has fixed itself. Foot lesions or numbness or pain: no Gets some n/t in hands since chemo. 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 She is on Femara and Zoladex. GERD (gastroesophageal reflux disease) hiatal hernia, egd Hiatal hernia 20 mg of Prilosec HTN (hypertension) PE (pulmonary embolism) Triggered by treatment for uterine bleeding. Xaralto for one year. PAST SURGICAL HISTORY Procedure Laterality Date INSJ TUNNELED CTR VAD W/SUBQ PORT AGE 7 YR/> 12/13/12 Right Subclavian LIG/TRNSXJ FLP TUBE ABDL/VAG APPR UNI/BI 11/27/2001 MASTECTOMY, PARTIAL Left 04/12/2013 PAST SURGICAL HISTORY OF 11/12/2012 left breast lumpectomy REDUCTION OF LARGE BREAST Bilateral Breast reduction ALLERGIES Nitrofurantoin, Lisinopril, Phenazopyridine, and Toradol [Ketorolac Tromethamine] MEDICATIONS Current Outpatient Medications Medication Sig dulaglutide (TRULICITY) 0.75 mg/0.5 mL pen injector Inject 0.75 mg subcutaneously one time a week. Inject dose once per week. Discard Pen After blood sugar diagnostic (BLOOD GLUCOSE TEST) test strip Test blood sugar(s) 1 times daily. Dx: Type 2 DM - Uncontrolled E11.65 Insulin: No hydroCHLOROthiazide (HYDRODIURIL, ESIDRIX) 25 mg tablet Take 1 tablet by mouth once daily. tiZANidine (ZANAFLEX) 4 mg tablet Take 1 tablet by mouth every 8 hours as needed (muscle spasms). Lancets lancets Test blood sugar(s) 1 times daily. Dx: Type 2 DM - Uncontrolled E11.65 Insulin: No FLUoxetine (PROZAC) 20 mg capsule Take 1 capsule by mouth once daily. Start after taking 10 mg for a week. metFORMIN ER (GLUCOPHAGE XR) 500 mg 24 hr tablet Take one tablet once daily X 1 week; then increase to twice daily. losartan (COZAAR) 100 mg tablet Take 1 tablet by mouth once daily. alendronate (FOSAMAX) 70 mg tablet Take 1 tablet by mouth one time a week. Take with a full glass of water, on an empty stomach; do NOT lie down for 30minutes. calcium-cholecalciferol, D3, (OSCAL+D 250) 250 mg-3.125 mcg (125 unit) per tablet Take 1 tablet by mouth twice daily. omeprazole (PRILOSEC) 20 mg capsule Take 1 capsule by mouth daily before breakfast. 1/2 hr before meal. elderberry fruit (ELDERBERRY ORAL) Take 1,000 mg by mouth once daily. Blood Pressure Cuff - Home Use BLOOD PRESSURE CUFF FOR HOME USE. DX: LABILE BLOOD PRESSURE ascorbic acid (VITAMIN C) 500 mg tablet Take 500 mg by mouth once daily. multivitamin tablet Take 1 tablet by mouth once daily. No current facility-administered medications for this visit. FAMILY HISTORY Problem Relation Age of Onset Hypertension Mother A fib Stroke Mother 60 severe and has fully recovered Osteoporosis Mother Diabetes Father Heart Father 54 heart attack, CHF 2017 Hypertension Father A-Fib Stroke Father 57 Obesity Father other (Congestive Heart Failure) Father Cancer Maternal Grandmother bone cancer Diabetes Maternal Grandmother Breast Cancer Maternal Grandmother 78 other (Rapid Airway Disease) Son Heart Maternal Grandfather CHF and Enlarged Heart Diabetes Paternal Grandmother other (Lung Problems) Paternal Grandmother Heart Paternal Grandfather MD Social History Tobacco Use Smoking status: Never Smokeless tobacco: Never Vaping Use Vaping Use: Never used Substance Use Topics Alcohol use: Yes Comment: Seldom. a couple times a year Drug use: No EXAM: BP 116/90 Pulse 77 Resp 18 Wt 118.4 kg (261 lb) LMP 06/17/2014 SpO2 93% BMI 42.13 kg/m PHYSICAL EXAM: General Appearance: Well appearing, alert, in no acute distress, well-hydrated, well nourished.. Skin: Skin color, texture, turgor normal, no suspicious rashes or lesions. Head: Normocephalic, no masses, lesions, tenderness or abnormalities. Eyes: Anicteric sclera. Pupils are equally round and reactive to light. Extraocular movements are intact. Lungs: Lungs clear to auscultation. No wheezing, rhonchi, rales.. Heart: RRR without murmur, gallop, or rubs. No ectopy. Extremities: No deformities, edema, skin discoloration, clubbing or cyanosis. Good capillary refill. . Neurologic: Gait normal. ASSESSMENT/PLAN: 1. Type 2 diabetes mellitus without complication, without long-term current use of insulin (HCC) - ICD9: 250.00, ICD10: E11.9 Controlled. improved control - Continue current medications Much improved control. Continue the same medications. Keep up the good work. Recheck in 6 months, sooner if needed. Discussed treatment plan and patient voices understanding. Patient's questions answered appropriately. Medications and potential side effects were discussed and patient voices understanding. Return to the office as scheduled or as needed for worsening/no improvement. Savita Griffith APRN.ALLAN documented in this encounter [facility] 07-27-2022 Miscellaneous Notes Last office visit: 06/14/22 F/u scheduled: 08/11/22 Shanta Anderson Ma documented in this encounter [facility] 07-27-2022 Miscellaneous Notes Last office visit: 06/14/22 F/u scheduled: 08/11/22 Shanta Anderson Ma documented in this encounter [facility] 07-22-2022 Miscellaneous Notes I called Silvia to assist her with scheduling her annual breast exam and mamm[facility] with [facility]. Silvia mailbox is not set up at this time. I will give her a call later today and see if I can assist her. Bonnie Fontanez Ma documented in this encounter [facility] 07-20-2022 Miscellaneous Notes Patient need mammogram order documented in this encounter [facility] 07-08-2022 Miscellaneous Notes Attempted to call pt for DM update. No answer and voicemail not set up. Rachelle Mosqueda RN documented in this encounter [facility] 06-14-2022 History of Presen t illness Narrative Patient presents with: 6 Month Exam Diabetes HPI: Patient presents today for office visit for 6 month exam. Recently Dx with Diabetes. Overall feeling well. Increase to Fluoxetine has helped a lot. Feels much calmer. DM: Reports overall feeling well. Medication side effects: Yes. Nausea. Home sugar check frequency/results:TID Hypoglycemic spells: No. Watching diet: Yes. Unexpected weight loss: No. Polyuria, polydipsia: No. Vision Changes: No. Foot lesions or numbness or pain: No. Sugars is 105-120. She is losing weight with diet. Feels nausea is not prohibitive on using meds. Has noticed rate tenderness on getting up and starts near where her shot was. No gi or gu issues. Red flags for re-assessment reviewed with patient in detail. HTN: Patient is compliant with meds Yes Monitors bp at home: Yes. Denies side effects: Yes. Chest pain: No. Dyspnea: No. Edema: No. Palpitations: No. Syncope: No. Headache: No. Dizziness: No. PSYCH: Currently tolerating medications well: Yes . Side effects: No. Sleep issues: No. Energy changes: No. Appetite changes: No. Current depression: No. Current anxiety: No. Suicidal ideation: No. MEDICATIONS: Current Outpatient Medications Medication Sig FLUoxetine (PROZAC) 20 mg capsule Take 1 capsule by mouth once daily. Start after taking 10 mg for a week. dulaglutide (TRULICITY) 0.75 mg/0.5 mL pen injector Inject 0.75 mg subcutaneously one time a week. Inject dose once per week. Discard Pen After metFORMIN ER (GLUCOPHAGE XR) 500 mg 24 hr tablet Take one tablet once daily X 1 week; then increase to twice daily. blood sugar diagnostic (BLOOD GLUCOSE TEST) test strip Test blood sugar(s) 1 times daily. Dx: Type 2 DM - Uncontrolled E11.65 Insulin: No losartan (COZAAR) 100 mg tablet Take 1 tablet by mouth once daily. alendronate (FOSAMAX) 70 mg tablet Take 1 tablet by mouth one time a week. Take with a full glass of water, on an empty stomach; do NOT lie down for 30minutes. calcium-cholecalciferol, D3, (OSCAL+D 250) 250 mg-3.125 mcg (125 unit) per tablet Take 1 tablet by mouth twice daily. hydroCHLOROthiazide (HYDRODIURIL, ESIDRIX) 25 mg tablet Take 1 tablet by mouth once daily. omeprazole (PRILOSEC) 20 mg capsule Take 1 capsule by mouth daily before breakfast. 1/2 hr before meal. Lancets lancets Test blood sugar(s) 1 times daily. Dx: Type 2 DM - Uncontrolled E11.65 Insulin: No elderberry fruit (ELDERBERRY ORAL) Take 1,000 mg by mouth once daily. tiZANidine (ZANAFLEX) 4 mg tablet Take 1 tablet by mouth every 8 hours as needed (muscle spasms). Blood Pressure Cuff - Home Use BLOOD PRESSURE CUFF FOR HOME USE. DX: LABILE BLOOD PRESSURE ascorbic acid (VITAMIN C) 500 mg tablet Take 500 mg by mouth once daily. multivitamin tablet Take 1 tablet by mouth once daily. No current facility-administered medications for this visit. 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 She is on Femara and Zoladex. GERD (gastroesophageal reflux disease) hiatal hernia, egd Hiatal hernia 20 mg of Prilosec HTN (hypertension) PE (pulmonary embolism) Triggered by treatment for uterine bleeding. Xaralto for one year. PAST SURGICAL HISTORY Procedure Laterality Date INSJ TUNNELED CTR VAD W/SUBQ PORT AGE 7 YR/> 12/13/12 Right Subclavian LIG/TRNSXJ FLP TUBE ABDL/VAG APPR UNI/BI 11/27/2001 MASTECTOMY, PARTIAL Left 04/12/2013 PAST SURGICAL HISTORY OF 11/12/2012 left breast lumpectomy REDUCTION OF LARGE BREAST Bilateral Breast reduction FAMILY HISTORY Problem Relation Age of Onset Hypertension Mother A fib Stroke Mother 60 severe and has fully recovered Osteoporosis Mother Diabetes Father Heart Father 54 heart attack, CHF 2016 Hypertension Father A-Fib Stroke Father 57 Obesity Father other (Congestive Heart Failure) Father Cancer Maternal Grandmother bone cancer Diabetes Maternal Grandmother Breast Cancer Maternal Grandmother 78 other (Rapid Airway Disease) Son Heart Maternal Grandfather CHF and Enlarged Heart Diabetes Paternal Grandmother other (Lung Problems) Paternal Grandmother Heart Paternal Grandfather MD Social History Tobacco Use Smoking status: Never Smokeless tobacco: Never Vaping Use Vaping Use: Never used Substance Use Topics Alcohol use: Yes Comment: Seldom. a couple times a year Drug use: No Reviewed current medications, allergies, past medical history, surgical history, family history and social history today. REVIEW OF SYSTEMS All other reviewed and negative other than HPI. HEALTH MAINTENANCE: Reviewed health maintenance issues today and recommended the following in detail. URINE ALBUMIN:CREATININE RATIO Never done DIABETIC FOOT EXAM Never done HIV SCREENING Never done MAMMOGRAM - per breast specialist. 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 COLORECTAL CANCER SCREENING-recommended. INFLUENZA(1) due on 05/13/2022 VITALS: BP 120/98 Pulse 102 Ht 167.6 cm (5' 6 ) Wt 121.7 kg (268 lb 6.4 oz) LMP 06/17/2014 SpO2 97% BMI 43.32 kg/m Last 4 Encounter Wt Readings: Date: Wt: 06/14/2022 121.7 kg (268 lb 6.4 oz) 05/12/2022 126.1 kg (278 lb) 05/04/2022 127.9 kg (282 lb) 12/10/2021 136.5 kg (301 lb) PHYSICAL EXAMINATION: General appearance: Well appearing, alert, in no acute distress, well-hydrated, well nourished. Skin: Skin color, texture, turgor normal, no suspicious rashes or lesions Head: Normocephalic, no masses, lesions, tenderness or abnormalities Lungs: Lungs clear to auscultation. No wheezing, rhonchi, rales Heart: RRR without murmur, gallop, or rubs. No ectopy Abdomen: Normal abdominal exam, Abdomen soft, non-tender. Bowel sounds normal. No masses, organomegaly Extremities: No deformities, edema, skin discoloration, clubbing or cyanosis. Good capillary refill. Feet:Shoes and socks removed, No deformities, ulcers, calluses, normal distal pulses, and not sensitive to monofilament bilaterally ASSESSMENT/PLAN: 1. Type 2 diabetes mellitus with hyperglycemia, without long-term current use of insulin (HCC) - ICD9: 250.00, 790.29, ICD10: E11.65 (primary diagnosis) - improving. - ALBUMIN/CREAT RATIO RND UR - HGB A1C 2. Essential hypertension - ICD9: 401.9, ICD10: I10 - good control - Continue current medication(s) - Goal of BP <130/80 3. Anxiety and depression - ICD9: 300.00, 311, ICD10: F41.9, F32.A - continue meds. 4. Screening for HIV (human immunodeficiency virus) - ICD9: V73.89, ICD10: Z11.4 - HIV 1 2 COMBO(AG/AB),WITH REFLEX TO DIFFERENTIATION Sukhdeep Muse MD documented in this encounter [facility] 06-04-2022 Miscellaneous Notes Last office visit: 05/04/22 Next appointment scheduled: 06/14/22 Last labs: 04/2022 Patient would like script sent to a different pharmacy. See My Chart message. documented in this encounter [facility] 06-02-2022 Miscellaneous Notes Please see my chart message. Thank you. Monica Manuel APRN.CHUTE BOSS documented in this encounter [facility] 05-23-2022 Miscellaneous Notes Please see the below message from patient. I went ahead and rescheduled her appointment out. Shira Denis Pss documented in this encounter [facility] 05-18-2022 Miscellaneous Notes Spoke with pt and information listed below given. Pt verbalizes understanding. Transferred to patient scheduler. Renate Perez LPN 1st attempt unable to leave message to return call to schedule with nutrition Schedulers please assist pt with scheduling appt with Nutrition. Charly Pyle LPN Referral placed. Please help schedule w/ obi. Pt here for initial diabetes appointment. Would like to see Obi Casillas, advanced manufacturing technician. Please place orders and have PSS call pt to schedule appt. Thank you! Rachelle oMsqueda RN documented in this encounter [facility] 05-12-2022 History of Presen t illness Narrative Complete SDOH from [employer] Does patient have a support person/ people who they would like to invite with them to their appointments: patient, patient's spouse/significant other, and son (adult) Not currently employed How many meals does the patient eat per day: 2-3 meals with snacks typical toast/ milk or juice or cereal for breakfast WAS drinking Pepsi like crazy. Quit cold turkey when diagnosed with DM. snacks fruit, string cheese, crackers, (previously was junk food like chips) Does patient have support with grocery shopping/preparing meals/who: Yes: patient How many calories per day does the patient consume: What types of food do you typically eat during the day: trying to eat more fruits/ veggies now Does patient have difficulty getting food: pt getting food assistance Does patient skip/portion medication doses: No Does patient have a family history of diabetes: Yes (father, all grandparents) What are the patient's concerns about diagnoses: halfway effects Readiness to learn about diabetes: high/ level of education: Unknown. Depression screening Score: 0 How do you prefer to receive information: MyChart and phone How do you prefer to be contacted by us for follow up education/ information: Miguelt Goals: Increase exercise to 3 days per week (call [facility] to check on status of application). Meet with Obi Log food intake on lolita (My Fitness Pal) Consider getting Dexcom sensor documented in this encounter [facility] 04-14-2022 Note HNO ID: [id number] Author: Verona Frederick armored car guard and driver Service: Radiology Author Type: Plate Embosser Type: Progress Notes Filed: 04/14/2022 1:24 PM Note Text: Radiology Service Progress Note DATE OF SERVICE: April 14, 2022 TIME: 1:18 PM PATIENT IDENTITY VERIFICATION COMPLETED USING TWO (2) STANDARD IDENTIFIERS: Name and Date of confirmed by patient verbally and Name and Date of confirmed by identification band. FALL SCREENING: Has the patient had 2 falls in the last year or 1 fall with injury or currently using an Ambulatory Assistive Device (Walker, Cane, Wheelchair, Crutches, etc.)? No PATIENT GENDER DATA: Female. status: : No status: NO. PATIENT RELEVANT IMPLANT DATA REVIEWED: Yes ALLERGIES: Reviewed and unchanged CONTRAST ALLERGY: NO. EXAM: MRI - CONTRAST TYPE: GROUP II PERIPHERAL IV DATA: Ambulatory: A peripheral IV was started in the Right antecubital site with a Angio cath/Butterfly: 22 gauge. RADIOLOGY DEPARTMENT: MR; Exam(s) Completed: Chest: Breast *issues with CT dye in the past not MRI dye* SIGNATURE: Monica Gimenez Radionomy PATIENT NAME: Silvia Miller DATE: April 14, 2022 TIME: 1:18 PM [facility] 04-14-2022 Miscellaneous Notes April 14, 2022 PID: [id number] Silvia Miller [address] [place] [id number] Dear Ms. Miller, We are pleased to inform you that the results of your recent breast imaging exam on 04/14/2022 are normal. Early detection of cancer is very important. We also understand recommendations regarding breast cancer screening are controversial. Please discuss with your primary care provider which strategy is best for you and whether a mammogram is right for you. Your imaging studies and report will be kept on file at [facility] as part of your permanent medical record and are available for your continuing care. Thank you for allowing us to help in meeting your health care needs. Sincerely, Dr. Anderson Interpreting Radiologist [facility] (Normal over 40) documented in this encounter [facility] 04-14-2022 History of Presen t illness Narrative Radiology Service Progress Note DATE OF SERVICE: April 14, 2022 TIME: 1:18 PM PATIENT IDENTITY VERIFICATION COMPLETED USING TWO (2) STANDARD IDENTIFIERS: Name and Date of confirmed by patient verbally and Name and Date of confirmed by identification band. FALL SCREENING: Has the patient had 2 falls in the last year or 1 fall with injury or currently using an Ambulatory Assistive Device (Walker, Cane, Wheelchair, Crutches, etc.)? No PATIENT GENDER DATA: Female. status: : No status: NO. PATIENT RELEVANT IMPLANT DATA REVIEWED: Yes ALLERGIES: Reviewed and unchanged CONTRAST ALLERGY: NO. EXAM: MRI - CONTRAST TYPE: GROUP II PERIPHERAL IV DATA: Ambulatory: A peripheral IV was started in the Right antecubital site with a Angio cath/Butterfly: 22 gauge. RADIOLOGY DEPARTMENT: MR; Exam(s) Completed: Chest: Breast *issues with CT dye in the past not MRI dye* SIGNATURE: Monica Gimenez armored car guard and driver PATIENT NAME: Silvia Miller DATE: April 14, 2022 TIME: 1:18 PM documented in this encounter [facility] 03-11-2022 Miscellaneous Notes Patient last visit with PCP 12/10/21 Follow up appointment scheduled 06/14/22 Laura Howell Ma documented in this encounter [facility] 01-18-2022 Miscellaneous Notes This encounter was opened in error. @[email or web address] documented in this encounter [facility] 12-21-2021 Miscellaneous Notes Patient calls and notified of results and providers instructions. Patient verbalizes understanding. Offered to schedule appointment for lab work. Patient declined said she would just walk-in after the 2 weeks when available. Soha Sofia RN Voicemail not set up. Forward Talentt message sent to patient. TC to Pt. Unable to LM due to the mailbox is not set up. Will try again later. Christa Tran LPN Sugar up at 121. Liver is climbing up again. Has had some issues on and off and had imaging of her liver in the past. To be on safe side, recheck liver, a1c and lipid in two to three weeks. No etoh or excess tylenol. documented in this encounter [facility] 12-10-2021 Instructions Benjamín Rust - 12/10/2021 9:28 AM EDT Recommend icing x 10 minutes twice daily. Cold water bath tub works nice for this Use heel lift in both feet Rest as much as possible. Consider physical therapy. documented in this encounter [facility] 12-10-2021 History of Presen t illness Narrative Images from the original note were not included. Consultation requested by Dr. Manuel for an opinion regarding right heel pain. My final recommendations will be communicated back to the requesting physician by way of shared Medical record or letter to requesting physician via [place] mail. Initial Podiatric Office Visit: Chief Complaint: This 46 year old female who presents with chief complaint:right posterior heel pain HPI Patient presents to clinic for evaluation of right foot. Patient has pain in the back of her right heel. She states the pain has only been present for one month and started only after she bumped her heel on the coffee table. She states the pain now has been nonstop. Shoes aggravate her foot. Past treatment has included icing, heat, ibuprofen and rest. Patient states the pain is 5/10 and is most intense to the back of her right heel. 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 She is on Femara and Zoladex. GERD (gastroesophageal reflux disease) hiatal hernia, egd Hiatal hernia 20 mg of Prilosec HTN (hypertension) PE (pulmonary embolism) Triggered by treatment for uterine bleeding. Xaralto for one year. Current Outpatient Medications Medication Sig hydroCHLOROthiazide (HYDRODIURIL, ESIDRIX) 25 mg tablet Take 1 tablet by mouth once daily. omeprazole (PRILOSEC) 20 mg capsule Take 1 capsule by mouth daily before breakfast. 1/2 hr before meal. elderberry fruit (ELDERBERRY ORAL) Take 1,000 mg by mouth once daily. tiZANidine (ZANAFLEX) 4 mg tablet Take 1 tablet by mouth every 8 hours as needed (muscle spasms). losartan (COZAAR) 100 mg tablet Take 1 tablet by mouth once daily. Blood Pressure Cuff - Home Use BLOOD PRESSURE CUFF FOR HOME USE. DX: LABILE BLOOD PRESSURE acetaminophen (TYLENOL EXTRA STRENGTH) 500 mg tablet Take 1,000 mg by mouth every 8 hours as needed. ascorbic acid (VITAMIN C) 500 mg tablet Take 500 mg by mouth once daily. multivitamin (DAILY VITAMIN) tablet Take 1 tablet by mouth once daily. GOSERELIN ACETATE (ZOLADEX SUBCUTANEOUS) Inject subcutaneously once every month. (Patient not taking: Reported on 12/10/2021 ) No current facility-administered medications for this visit. ALLERGIES Allergen Reactions Nitrofurantoin Hives, Other: See Comments Contrast Dye Hives Lisinopril Cough Morphine Hives Phenazopyridine Hives, Other: See Comments Toradol [Ketorolac * Hives PAST SURGICAL HISTORY Procedure Laterality Date INSJ TUNNELED CTR VAD W/SUBQ PORT AGE 7 YR/> 12/13/12 Right Subclavian LIG/TRNSXJ FLP TUBE ABDL/VAG APPR UNI/BI 11/27/2001 MASTECTOMY, PARTIAL Left 04/12/2013 PAST SURGICAL HISTORY OF 11/12/2012 left breast lumpectomy REDUCTION OF LARGE BREAST Bilateral Breast reduction FAMILY HISTORY Problem Relation Age of Onset Hypertension Mother A fib Stroke Mother 60 severe and has fully recovered Osteoporosis Mother Diabetes Father Heart Father 54 heart attack, CHF 2016 Hypertension Father A-Fib Stroke Father 57 Obesity Father other (Congestive Heart Failure) Father Cancer Maternal Grandmother bone cancer Diabetes Maternal Grandmother Breast Cancer Maternal Grandmother 78 other (Rapid Airway Disease) Son Heart Maternal Grandfather CHF and Enlarged Heart Diabetes Paternal Grandmother other (Lung Problems) Paternal Grandmother Heart Paternal Grandfather MD Social History Tobacco Use Smoking status: Never Smoker Smokeless tobacco: Never Used Vaping Use Vaping Use: Never used Substance Use Topics Alcohol use: Yes Comment: Seldom. a couple times a year Drug use: No REVIEW OF SYSTEMS GENERAL: Negative for Malaise, significant weight loss, fever RESPIRATORY: Negative for cough, wheezing and shortness of breath CARDIOVASCULAR: Negative for chest pain, leg swelling and palpitations GI: Negative for abdominal discomfort, blood in stools or black stools and change in bowel habits : Negative for dysuria, frequency and incontinence MUSCULOSKELETAL: Negative for joint pain or swelling, back pain, and muscle pain. SKIN: Negative for lesions, rash, and itching. HEMATOLOGY/LYMPHOLOGY Negative for prolonged bleeding, bruising easily, and swollen nodes. ENDOCRINE: Negative for cold or heat intolerance, polyuria, polydipsia and goiter. NEURO: negative Physical Exam: Constitutional: Pt is a well developed 46 year old female who is alert, oriented and cooperative Eyes: Following during examination. No redness or drainage. Respiratory: RR normal and nonlabored. Even breathing. No evidence of distress or shortness of breath. Psychology: Patient is engaged during conversation. Normal affect and mood. Does not appear depressed or anxious during encounter. Vascular: Dorsalis pedis and posterior tibial pulses palpable as b/l Capillary Fill time < 5 seconds to digits 1-5 b/l Skin temperature warm to warm proximal to distal b/l Hair growth present to digits Neurological: intact light touch/epicritic sensation b/l intact protective sensation no significant neurological deficits Dermatological: Nails 1-5 b/l appear normal. Webspaces clean and dry 1-4 b/l. Skin appears well hydrated and supple. good color, texture, turgor. No open lesions present. No callosities present. Musculoskeletal/Orthopaedic: Patient has pain to palpation of right posterior achilles. Foot type is neutral structurally AJ ROM is full with knee extended and flexed 1st MPJ is full when loaded and no pain or crepitus are noted with ROM. MTJ, STJ are full and free of pain and crepitus. +5/5 muscle strength dorsiflexion, plantarflexion, inversion, eversion b/l Kaye test produces plantarflexion b/l. Radiographs: 3 views right ankle reviewed December 10, 2021: I have personally reviewed and interpreted these XR myself: There is plantar heel spur. No acute fracture ASSESSMENT: (M76.61) Tendonitis, Achilles, right (primary encounter diagnosis) PLAN: 1. History and physical examination performed. 2. XR reviewed with patient and interpreted today 3. Discussed achilles tendonitis of right foot. Recommend stretching, icing, heel lifts and rest. 4. Will make referral to physical therapy. 5. If pain fails to improve, consider boot. Benjamín Rust DPM Podiatry [address] [facility] [id number] Dept: [phone] Dept AMB ROOMING INTAKE FLOWSHEET DATA Pain Pain Level: 5 Pain Location: Foot-Right Description: Sharp, Other: See comment (squeezing) Duration Amount of Time: 6 Duration Units: Weeks Frequency: Continuous Intervention/Comfort measure: Medication, Relaxation (has iced) Patient presents with: Right Foot - New, Pain documented in this encounter [facility] 12-09-2021 Miscellaneous Notes Phoned pt, appt scheduled. Charly Pyle LPN Please ask her to make an appt to discuss osteoporosis with one of us Patient is aware of all information. I told patient I would forward this note to Dr. Muse re: bone density but I also asked that she call to discuss. PSR's- please contact patient to schedule for 6 month OV. Jacque Red LPN Please inform pt. that I discussed the plan with Dr. Pool. Pt. may stop femara and zoladex inj. Please cancel future zoladex appts. Follow up with PCP re:bone density. A note was put in about this previously (12/31/20) but I do not see that pt. has discussed this with PCP. Please see AVS from last week. I do not see her OV in 6 months scheduled. Thank you. Monica Manuel APRN.[employer] documented in this encounter [facility] 12-04-2021 Nurse Note Zoladex injection administered, Left lower quad, tolerated well, no immediate adverse reactions noted. See office notes Janice Renteria LPN documented in this encounter [facility] 12-01-2021 History of Presen t illness Narrative Radiology Service Progress Note PATIENT NAME: Silvia Miller DATE OF SERVICE: December 01, 2021 TIME: 12:37 PM PATIENT IDENTITY VERIFICATION COMPLETED USING TWO (2) IDENTIFIERS: Name and Date of confirmed by patient verbally. FALL SCREENING: Has the patient had 2 falls in the last year or 1 fall with injury or currently using an Ambulatory Assistive Device (Walker, Cane, Wheelchair, Crutches, etc.)? No PATIENT GENDER DATA: Female. status: : No status: NO. PATIENT RELEVANT IMPLANT DATA REVIEWED: Yes RADIOLOGY DEPARTMENT: General X-ray: Exam(s) Completed: Lower Extremity X-Ray(s): Ankle, Right and Wt. Bearing PERIPHERAL IV DATA: Not applicable SIGNED BY: RT Ale(R) December 01, 2021 12:37 PM documented in this encounter [facility] documented as of this encounter (statuses as of 12/02/2021) [facility]-09-2018 History of Past illness Narrative* Problem Noted Date Resolved Date Personal history of malignant neoplasm of breast 12/19/2017 10/24/2020 Dizziness and giddiness 12/19/2017 10/24/19 21 Chest pain 12/19/2017 04/02/2019 Other pulmonary embolism and infarction 02/21/20 14 10/24/2020 Lump or mass in breast 11/10/2012 9 documented as of this encounter (statuses as of 12/04/2021) [facility] History of Past illness Narrative* Problem Noted Date Resolved Date Personal history of malignant neoplasm of breast 12/19/2017 10/24/2020 Dizziness and giddiness 12/19/2017 10/24/19 21 Chest pain 12/19/2017 04/02/2019 Other pulmonary embolism and infarction 02/21/20 14 10/24/2020 Lump or mass in breast 11/10/2012 9 documented as of this encounter (statuses as of 12/09/2021) [facility] History of Past illness Narrative* Problem Noted Date Resolved Date Personal history of malignant neoplasm of breast 12/19/2017 10/24/2020 Dizziness and giddiness 12/19/2017 10/24/19 21 Chest pain 12/19/2017 04/02/2019 Other pulmonary embolism and infarction 02/21/20 14 10/24/2020 Lump or mass in breast 11/10/2012 9 documented as of this encounter (statuses as of 12/10/2021) [facility] History of Past illness Narrative* Problem Noted Date Resolved Date Personal history of malignant neoplasm of breast 12/19/2017 10/24/2020 Dizziness and giddiness 12/19/2017 10/24/19 21 Chest pain 12/19/2017 04/02/2019 Other pulmonary embolism and infarction 02/21/20 14 10/24/2020 Lump or mass in breast 11/10/2012 9 documented as of this encounter (statuses as of 12/21/2021) [facility] History of Past illness Narrative* Problem Noted Date Resolved Date Personal history of malignant neoplasm of breast 12/19/2017 10/24/2020 Dizziness and giddiness 12/19/2017 10/24/19 21 Chest pain 12/19/2017 04/02/2019 Other pulmonary embolism and infarction 02/21/20 14 10/24/2020 Lump or mass in breast 11/10/2012 9 documented as of this encounter (statuses as of 01/18/2022) [facility] History of Past illness Narrative* Problem Noted Date Resolved Date Personal history of malignant neoplasm of breast 12/19/2017 10/24/2020 Dizziness and giddiness 12/19/2017 10/24/19 21 Chest pain 12/19/2017 04/02/2019 Other pulmonary embolism and infarction 02/21/20 14 10/24/2020 Lump or mass in breast 11/10/2012 9 documented as of this encounter (statuses as of 02/01/2022) [facility] History of Past illness Narrative* Problem Noted Date Resolved Date Personal history of malignant neoplasm of breast 12/19/2017 10/24/2020 Dizziness and giddiness 12/19/2017 10/24/19 21 Chest pain 12/19/2017 04/02/2019 Other pulmonary embolism and infarction 02/21/20 14 10/24/2020 Lump or mass in breast 11/10/2012 9 documented as of this encounter (statuses as of 03/11/2022) [facility] History of Past illness Narrative* Problem Noted Date Resolved Date Personal history of malignant neoplasm of breast 12/19/2017 10/24/2020 Dizziness and giddiness 12/19/2017 10/24/19 21 Chest pain 12/19/2017 04/02/2019 Other pulmonary embolism and infarction 02/21/20 14 10/24/2020 Lump or mass in breast 11/10/2012 9 documented as of this encounter (statuses as of 03/29/2022) [facility] History of Past illness Narrative* Problem Noted Date Resolved Date Personal history of malignant neoplasm of breast 12/19/2017 10/24/2020 Dizziness and giddiness 12/19/2017 10/24/19 21 Chest pain 12/19/2017 04/02/2019 Other pulmonary embolism and infarction 02/21/20 14 10/24/2020 Lump or mass in breast 11/10/2012 9 documented as of this encounter (statuses as of 04/15/2022) [facility] History of Past illness Narrative* Problem Noted Date Resolved Date Personal history of malignant neoplasm of breast 12/19/2017 10/24/2020 Dizziness and giddiness 12/19/2017 10/24/19 21 Chest pain 12/19/2017 04/02/2019 Other pulmonary embolism and infarction 02/21/20 14 10/24/2020 Lump or mass in breast 11/10/2012 9 documented as of this encounter (statuses as of 04/16/2022) [facility] History of Past illness Narrative* Problem Noted Date Resolved Date Personal history of malignant neoplasm of breast 12/19/2017 10/24/2020 Dizziness and giddiness 12/19/2017 10/24/19 21 Chest pain 12/19/2017 04/02/2019 Other pulmonary embolism and infarction 02/21/20 14 10/24/2020 Lump or mass in breast 11/10/2012 9 documented as of this encounter (statuses as of 05/12/2022) [facility] History of Past illness Narrative* Problem Noted Date Resolved Date Personal history of malignant neoplasm of breast 12/19/2017 10/24/2020 Dizziness and giddiness 12/19/2017 10/24/19 21 Chest pain 12/19/2017 04/02/2019 Other pulmonary embolism and infarction 02/21/20 14 10/24/2020 Lump or mass in breast 11/10/2012 9 documented as of this encounter (statuses as of 05/18/2022) [facility] History of Past illness Narrative* Problem Noted Date Resolved Date Personal history of malignant neoplasm of breast 12/19/2017 10/24/2020 Dizziness and giddiness 12/19/2017 10/24/19 21 Chest pain 12/19/2017 04/02/2019 Other pulmonary embolism and infarction 02/21/20 14 10/24/2020 Lump or mass in breast 11/10/2012 9 documented as of this encounter (statuses as of 05/24/2022) [facility] History of Past illness Narrative* Problem Noted Date Resolved Date Personal history of malignant neoplasm of breast 12/19/2017 10/24/2020 Dizziness and giddiness 12/19/2017 10/24/19 21 Chest pain 12/19/2017 04/02/2019 Other pulmonary embolism and infarction 02/21/20 14 10/24/2020 Lump or mass in breast 11/10/2012 9 documented as of this encounter (statuses as of 06/02/2022) [facility] History of Past illness Narrative* Problem Noted Date Resolved Date Personal history of malignant neoplasm of breast 12/19/2017 10/24/2020 Dizziness and giddiness 12/19/2017 10/24/19 21 Chest pain 12/19/2017 04/02/2019 Other pulmonary embolism and infarction 02/21/20 14 10/24/2020 Lump or mass in breast 11/10/2012 9 documented as of this encounter (statuses as of 06/04/2022) [facility] History of Past illness Narrative* Problem Noted Date Resolved Date Personal history of malignant neoplasm of breast 12/19/2017 10/24/2020 Dizziness and giddiness 12/19/2017 10/24/19 21 Chest pain 12/19/2017 04/02/2019 Other pulmonary embolism and infarction 02/21/20 14 10/24/2020 Lump or mass in breast 11/10/2012 9 documented as of this encounter (statuses as of 06/15/2022) [facility] History of Past illness Narrative* Problem Noted Date Resolved Date Personal history of malignant neoplasm of breast 12/19/2017 10/24/2020 Dizziness and giddiness 12/19/2017 10/24/19 21 Chest pain 12/19/2017 04/02/2019 Other pulmonary embolism and infarction 02/21/20 14 10/24/2020 Lump or mass in breast 11/10/2012 9 documented as of this encounter (statuses as of 07/08/2022) [facility] History of Past illness Narrative* Problem Noted Date Resolved Date Personal history of malignant neoplasm of breast 12/19/2017 10/24/2020 Dizziness and giddiness 12/19/2017 10/24/19 21 Chest pain 12/19/2017 04/02/2019 Other pulmonary embolism and infarction 02/21/20 14 10/24/2020 Lump or mass in breast 11/10/2012 9 documented as of this encounter (statuses as of 07/21/2022) [facility] History of Past illness Narrative* Problem Noted Date Resolved Date Personal history of malignant neoplasm of breast 12/19/2017 10/24/2020 Dizziness and giddiness 12/19/2017 10/24/19 21 Chest pain 12/19/2017 04/02/2019 Other pulmonary embolism and infarction 02/21/20 14 10/24/2020 Lump or mass in breast 11/10/2012 9 documented as of this encounter (statuses as of 07/28/2022) [facility] History of Past illness Narrative* Problem Noted Date Resolved Date Personal history of malignant neoplasm of breast 12/19/2017 10/24/2020 Dizziness and giddiness 12/19/2017 10/24/19 21 Chest pain 12/19/2017 04/02/2019 Other pulmonary embolism and infarction 02/21/20 14 10/24/2020 Lump or mass in breast 11/10/2012 9 documented as of this encounter (statuses as of 07/28/2022) [facility] History of Past illness Narrative* Problem Noted Date Resolved Date Personal history of malignant neoplasm of breast 12/19/2017 10/24/2020 Dizziness and giddiness 12/19/2017 10/24/19 21 Chest pain 12/19/2017 04/02/2019 Other pulmonary embolism and infarction 02/21/20 14 10/24/2020 Lump or mass in breast 11/10/2012 9 documented as of this encounter (statuses as of 08/11/2022) [facility] History of Past illness Narrative* Problem Noted Date Resolved Date Personal history of malignant neoplasm of breast 12/19/2017 10/24/2020 Dizziness and giddiness 12/19/2017 10/24/19 21 Chest pain 12/19/2017 04/02/2019 Other pulmonary embolism and infarction 02/21/20 14 10/24/2020 Lump or mass in breast 11/10/2012 9 documented as of this encounter (statuses as of 08/17/2022) [facility] History of Past illness Narrative* Problem Noted Date Resolved Date Personal history of malignant neoplasm of breast 12/19/2017 10/24/2020 Dizziness and giddiness 12/19/2017 10/24/19 21 Chest pain 12/19/2017 04/02/2019 Other pulmonary embolism and infarction 02/21/20 14 10/24/2020 Lump or mass in breast 11/10/2012 9 documented as of this encounter (statuses as of 09/14/2022) [facility] History of Past illness Narrative* Problem Noted Date Resolved Date Personal history of malignant neoplasm of breast 12/19/2017 10/24/2020 Dizziness and giddiness 12/19/2017 10/24/19 21 Chest pain 12/19/2017 04/02/2019 Other pulmonary embolism and infarction 02/21/20 14 10/24/2020 Lump or mass in breast 11/10/2012 9 documented as of this encounter (statuses as of 09/15/2022) [facility] History of Past illness Narrative* Problem Noted Date Resolved Date Personal history of malignant neoplasm of breast 12/19/2017 10/24/2020 Dizziness and giddiness 12/19/2017 10/24/19 21 Chest pain 12/19/2017 04/02/2019 Other pulmonary embolism and infarction 02/21/20 14 10/24/2020 Lump or mass in breast 11/10/2012 9 documented as of this encounter (statuses as of 10/11/2022) [facility] History of Past illness Narrative* Problem Noted Date Resolved Date Personal history of malignant neoplasm of breast 12/19/2017 10/24/2020 Dizziness and giddiness 12/19/2017 10/24/19 21 Chest pain 12/19/2017 04/02/2019 Other pulmonary embolism and infarction 02/21/20 14 10/24/2020 Lump or mass in breast 11/10/2012 9 documented as of this encounter (statuses as of 10/14/2022) [facility] History of Past illness Narrative* Problem Noted Date Resolved Date Personal history of malignant neoplasm of breast 12/19/2017 10/24/2020 Dizziness and giddiness 12/19/2017 10/24/19 21 Chest pain 12/19/2017 04/02/2019 Other pulmonary embolism and infarction 02/21/20 14 10/24/2020 Lump or mass in breast 11/10/2012 9 documented as of this encounter (statuses as of 11/09/2022) [facility] History of Past illness Narrative* Problem Noted Date Resolved Date Personal history of malignant neoplasm of breast 12/19/2017 10/24/2020 Dizziness and giddiness 12/19/2017 10/24/19 21 Chest pain 12/19/2017 04/02/2019 Other pulmonary embolism and infarction 02/21/20 14 10/24/2020 Lump or mass in breast 11/10/2012 9 documented as of this encounter (statuses as of 12/13/2022) [facility] History of Past illness Narrative* Problem Noted Date Resolved Date Personal history of malignant neoplasm of breast 12/19/2017 10/24/2020 Dizziness and giddiness 12/19/2017 10/24/19 21 Chest pain 12/19/2017 04/02/2019 Other pulmonary embolism and infarction 02/21/20 14 10/24/2020 Lump or mass in breast 11/10/2012 9 documented as of this encounter (statuses as of 12/13/2022) [facility] History of Past illness Narrative* Problem Noted Date Resolved Date Personal history of malignant neoplasm of breast 12/19/2017 10/24/2020 Dizziness and giddiness 12/19/2017 10/24/19 21 Chest pain 12/19/2017 04/02/2019 Pulmonary embolism 02/21/2014 01/15/2023 Other pulmonary embolism and infarction 02/21/20 14 10/24/2020 Lump or mass in breast 11/10/2012 9 documented as of this encounter (statuses as of 02/01/2023) [facility] History of Past illness Narrative* Problem Noted Date Resolved Date Personal history of malignant neoplasm of breast 12/19/2017 10/24/2020 Dizziness and giddiness 12/19/2017 10/24/19 21 Chest pain 12/19/2017 04/02/2019 Pulmonary embolism 02/21/2014 01/15/2023 Other pulmonary embolism and infarction 02/21/20 14 10/24/2020 Lump or mass in breast 11/10/2012 9 documented as of this encounter (statuses as of 02/09/2023) [facility] History of Past illness Narrative* Problem Noted Date Resolved Date Personal history of malignant neoplasm of breast 12/19/2017 10/24/2020 Dizziness and giddiness 12/19/2017 10/24/19 21 Chest pain 12/19/2017 04/02/2019 Pulmonary embolism 02/21/2014 01/15/2023 Other pulmonary embolism and infarction 02/21/20 14 10/24/2020 Lump or mass in breast 11/10/2012 9 documented as of this encounter (statuses as of 02/28/2023) [facility] History of Past illness Narrative* Problem Noted Date Resolved Date Personal history of malignant neoplasm of breast 12/19/2017 10/24/2020 Dizziness and giddiness 12/19/2017 10/24/19 21 Chest pain 12/19/2017 04/02/2019 Pulmonary embolism 02/21/2014 01/15/2023 Other pulmonary embolism and infarction 02/21/20 14 10/24/2020 Lump or mass in breast 11/10/2012 9 documented as of this encounter (statuses as of 03/08/2023) [facility] History of Past illness Narrative* Problem Noted Date Resolved Date Personal history of malignant neoplasm of breast 12/19/2017 10/24/2020 Dizziness and giddiness 12/19/2017 10/24/19 21 Chest pain 12/19/2017 04/02/2019 Pulmonary embolism 02/21/2014 01/15/2023 Other pulmonary embolism and infarction 02/21/20 14 10/24/2020 Lump or mass in breast 11/10/2012 9 documented as of this encounter (statuses as of 03/09/2023) [facility] History of Past illness Narrative* Problem Noted Date Resolved Date Personal history of malignant neoplasm of breast 12/19/2017 10/24/2020 Dizziness and giddiness 12/19/2017 10/24/19 21 Chest pain 12/19/2017 04/02/2019 Pulmonary embolism 02/21/2014 01/15/2023 Other pulmonary embolism and infarction 02/21/20 14 10/24/2020 Lump or mass in breast 11/10/2012 9 documented as of this encounter (statuses as of 03/10/2023) [facility] History of Past illness Narrative* Problem Noted Date Diagnosed Date Resolved Date Personal history of malignan t neoplasm of breast 12/19/2017 10/24/2020 Dizziness and giddiness 12/19/201710/13 Chest pain 12/19/2017 04/02/2019 Pulmonary embolism 02/21/2014 3 Other pulmonary embolism and infarction 02/20/2014 10/24/2020 Lump or mass in breast 11/10/201204/02 documented as of this encounter (statuses as of 04/13/2023) [facility] History of Past illness Narrative* Problem Noted Date Diagnosed Date Resolved Date Personal history of malignan t neoplasm of breast 12/19/2017 10/24/2020 Dizziness and giddiness 12/19/201710/13 Chest pain 12/19/2017 04/02/2019 Pulmonary embolism 02/21/2014 3 Other pulmonary embolism and infarction 02/20/2014 10/24/2020 Lump or mass in breast 11/10/201204/02 documented as of this encounter (statuses as of 05/31/2023) [facility] History of Past illness Narrative* Problem Noted Date Diagnosed Date Resolved Date Personal history of malignan t neoplasm of breast 12/19/2017 10/24/2020 Dizziness and giddiness 12/19/201710/13 Chest pain 12/19/2017 04/02/2019 Pulmonary embolism 02/21/2014 3 Other pulmonary embolism and infarction 02/20/2014 10/24/2020 Lump or mass in breast 11/10/201204/02 documented as of this encounter (statuses as of 06/24/2023) [facility] History of Past illness Narrative* Problem Noted Date Diagnosed Date Resolved Date Personal history of malignan t neoplasm of breast 12/19/2017 10/24/2020 Dizziness and giddiness 12/19/201710/13 Chest pain 12/19/2017 04/02/2019 Pulmonary embolism 02/21/2014 3 Other pulmonary embolism and infarction 02/20/2014 10/24/2020 Lump or mass in breast 11/10/201204/02 documented as of this encounter (statuses as of 06/27/2023) [facility] History of Past illness Narrative* Problem Noted Date Diagnosed Date Resolved Date Personal history of malignan t neoplasm of breast 12/19/2017 10/24/2020 Dizziness and giddiness 12/19/201710/13 Chest pain 12/19/2017 04/02/2019 Pulmonary embolism 02/21/2014 3 Other pulmonary embolism and infarction 02/20/2014 10/24/2020 Lump or mass in breast 11/10/201204/02 documented as of this encounter (statuses as of 06/29/2023) [address]09-2018 History of Past illness Narrative* Problem Noted Date Diagnosed Date Resolved Date Personal history of malignan t neoplasm of breast 12/19/2017 10/24/2020 Dizziness and giddiness 12/19/201710/13 Chest pain 12/19/2017 04/02/2019 Pulmonary embolism 02/21/2014 3 Other pulmonary embolism and infarction 02/20/2014 10/24/2020 Lump or mass in breast 11/10/201204/02 documented as of this encounter (statuses as of 06/29/2023) [facility] History of Past illness Narrative* Problem Noted Date Diagnosed Date Resolved Date Personal history of malignan t neoplasm of breast 12/19/2017 10/24/2020 Dizziness and giddiness 12/19/201710/13 Chest pain 12/19/2017 04/02/2019 Pulmonary embolism 02/21/2014 3 Other pulmonary embolism and infarction 02/20/2014 10/24/2020 Lump or mass in breast 11/10/201204/02 documented as of this encounter (statuses as of 06/29/2023) [facility] History of Past illness Narrative* Problem Noted Date Diagnosed Date Resolved Date Personal history of malignan t neoplasm of breast 12/19/2017 10/24/2020 Dizziness and giddiness 12/19/201710/13 Chest pain 12/19/2017 04/02/2019 Pulmonary embolism 02/21/2014 3 Other pulmonary embolism and infarction 02/20/2014 10/24/2020 Lump or mass in breast 11/10/201204/02 documented as of this encounter (statuses as of 07/01/2023) [facility] History of Past illness Narrative* Problem Noted Date Diagnosed Date Resolved Date Personal history of malignan t neoplasm of breast 12/19/2017 10/24/2020 Dizziness and giddiness 12/19/201710/13 Chest pain 12/19/2017 04/02/2019 Pulmonary embolism 02/21/2014 3 Other pulmonary embolism and infarction 02/20/2014 10/24/2020 Lump or mass in breast 11/10/201204/02 documented as of this encounter (statuses as of 08/02/2023) [facility] note* Diagnosis Acute right ankle pain documented in this encounter [facility] [facility] Diagnosis 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eft female breast, unspecified estrogen receptor status (HCC)- Primary [facility] Diagnosis Tendonitis, Achilles, right- Primary Achilles bursitis or tendinitis documented [facility] Diagnosis Elevated liver enzymes- Primary Other nonspecific abnormal serum enzyme levels Hyperglycemia Other abnormal glucose [facility] Diagnosis OPENED IN ERROR- Primary To allow closing an encounter opened in error (used in SmartSet) documented [facility] Diagnosis Essential hypertension Unspecified essential hypertension documented [facility] this [facility]* Diagnosis Personal history of breast cancer Personal history of malignant neoplasm of breast Fibrocystic breast changes of both breasts [facility] Diagnosis Type 2 diabetes mellitus with hyperglycemia, without long-term current use of insulin (HCC) documented [facility] Diagnosis Type 2 diabetes mellitus with hyperglycemia, without long-term current use of insulin (HCC)- Primary [facility]* Diagnosis Anxiety and depression Dysthymic disorder Type 2 diabetes mellitus with hyperglycemia, without long-term current use of insulin (HCC) Essential hypertension Unspecified essential hypertension Osteoporosis, unspecified osteoporosis type, unspecified pathological fracture presence [facility] Diagnosis Type 2 diabetes mellitus with hyperglycemia, without long-term current use of insulin (HCC)- Primary Essential hypertension Unspecified essential hypertension Anxiety and depression Dysthymic disorder Screening for HIV (human immunodeficiency virus) Special screening examination for other specified viral diseases documented [facility] Diagnosis Encounter for screening mammogram for breast cancer- Primary [facility]* Diagnosis Type 2 diabetes mellitus with hyperglycemia, without long-term current use of insulin (HCC) Essential hypertension Unspecified essential hypertension [facility] Diagnosis Acute left-sided low back pain with left-sided sciatica Type 2 diabetes mellitus with hyperglycemia, without long-term current use of insulin (HCC) documented [facility] Diagnosis Type 2 diabetes mellitus without complication, without long-term current use of insulin (HCC)- Primary [facility]* Diagnosis Anxiety and depression Dysthymic disorder documented [facility] Diagnosis Type 2 diabetes mellitus with hyperglycemia, without long-term current use of insulin (HCC) documented [facility]* Diagnosis Anxiety and depression Dysthymic disorder documented [facility] Diagnosis Type 2 diabetes mellitus with hyperglycemia, without long-term current use of insulin (HCC) Anxiety and depression Dysthymic disorder documented [facility] Diagnosis Anxiety and depression Dysthymic disorder Type 2 diabetes mellitus with hyperglycemia, without long-term current use of insulin (HCC) documented [facility]* Diagnosis Anxiety and depression Dysthymic disorder documented [facility]* Diagnosis Type 2 diabetes mellitus with hyperglycemia, without long-term current use of insulin (HCC) documented [facility]* Diagnosis Hiatal hernia with GERD without esophagitis Screening for colon cancer Special screening for malignant neoplasms, colon Lump of skin of back Localized superficial swelling, mass, or lump documented [facility] this [facility]* Diagnosis Pain, dental- Primary Unspecified disorder of the teeth and supporting structures documented [facility] this [facility]* Diagnosis Essential hypertension Unspecified essential hypertension documented [facility]* Diagnosis Osteoporosis, unspecified osteoporosis type, unspecified pathological fracture presence Type 2 diabetes mellitus with hyperglycemia, without long-term current use of insulin (HCC) documented [facility]* Diagnosis Type 2 diabetes mellitus with hyperglycemia, without long-term current use of insulin (HCC) documented [facility]* Diagnosis Personal history of breast cancer- Primary Personal history of malignant neoplasm of breast documented [facility]* Diagnosis Type 2 diabetes mellitus with hyperglycemia, without long-term current use of insulin (HCC) documented [facility]* Diagnosis Acute left-sided low back pain with left-sided sciatica documented [facility] this [facility]* Diagnosis Osteoporosis, unspecified osteoporosis type, unspecified pathological fracture presence Type 2 diabetes mellitus with hyperglycemia, without long-term current use of insulin (HCC) documented [facility]* Diagnosis Osteoporosis, unspecified osteoporosis type, unspecified pathological fracture presence [facility]* Diagnosis Type 2 diabetes mellitus with hyperglycemia, without long-term current use of insulin (HCC)- Primary Essential hypertension Unspecified essential hypertension Elevated liver enzymes Other nonspecific abnormal serum enzyme levels Osteoporosis, unspecified osteoporosis type, unspecified pathological fracture presence Anxiety and depression Dysthymic disorder Encounter for immunization Need for other specified prophylactic vaccination against single bacterial disease documented in this encounter [facility] for referral (narrative)* Diagnostic Procedure Only (Routine) - Closed Specialty Diagnoses / Procedures Referred By Buck andrade Referred To Contact XR IMAGING Diagnoses Acute right ankle pain Procedures XR ANKLE GENERAL 3V AP/LAT/OBL RIGHT RADEX ANKLE COMPLETE MINIMUM 3 VIEWS Savita Griffith APRN.CH[employer] [address] [place] [address] Xr Imaging Referral ID Status Reason Start Date Expiration Date V isits Requested Visits Authorized [id number] Closed Auto-Generate d Referral 10/21/2021 11/20/2022 1 1 [facility] for referral (narrative)* Diagnostic Procedure Only (Routine) - Pending Review Specialty Diagnoses / Procedures Referred By Buck andrade Referred To Contact BR IMAGING Diagnoses Encounter for screening mammogram for breast cancer Procedures DIANE SCREENING W ERNESTO SCREENING DIGITAL BREAST TOMOSYNTHESIS BI SCREENING MAMMOGRAPHY BI 2-VIEW BREAST INC CAD Jdae Blanco APRN.CNP [address] [place] [address] [facility] [address] [place] [address] Referral ID Status Reason Start Date Expiration Date Visits Requested Visits Authorized [id number] Pending Review Auto-Generat ed Referral 07/21/2022 08/20/2023 1 [facility] Diagnostic Procedure Only (Routine) - Closed Specialty Diagnoses / Procedures Referred By Buck andrade Referred To Contact XR IMAGING Diagnoses Acute right ankle pain Procedures XR ANKLE GENERAL 3V AP/LAT/OBL RIGHT RADEX ANKLE COMPLETE MINIMUM 3 VIEWS Savita Griffith, [employer]UMPET TEACHER.CH[employer] [address] [place] [address] Xr Imaging Referral ID Status Reason Start Date Expiration Date V isits Requested Visits Authorized [id number] Closed Auto-Generate d Referral 10/21/2021 11/20/2022 1 1 [facility] Medications Administered Section Inactive Administered Medications - up to 3 most recent administrations Medication Order MAR Action Action Date Dose Rate Site goserelin 3.6 mg injection (ZOLADEX) 3.6 mg, SUBCUTANEOUS, ONCE, 1 dose, On Tue12/04/21 at 1130, Hazardous Chemotherapy Drug: Use appropriate PPE. Given 12/04/2021 11:12 AM EDT 3.6 mg Abdomen, LLQ Reason for Referral Specialty Diagnoses / Procedures Referred By Buck andrade Referred To Contact [facility] Diagnoses Tendonitis, Achilles, right Procedures CONSULT TO PHYSICAL THERAPY PHYSICAL THERAPY EVALUATION HIGH COMPLEX 45 MINS Benjamín Rust [address] [place] [address] [facility] [place] [address] [place] [id number] Referral ID Status Reason Start Date Expiration Date Visits Requested Visits Authorized [id number] Authorized Auto-Generat ed Referral 12/10/2021 03/11/2022 1 1 Specialty Diagnoses / Procedures Referred By Buck Referred To Contact MR IMAGING Diagnoses Personal history of breast cancer Fibrocystic breast changes of both breasts Procedures MRI BREAST WO/W IVCON BILAT MRI BREAST WITHOUT&WITH CONTRAST W/CAD BILATERAL Jade Blanco, [employer]UMP[employer] TEACHER.[employer] [employer] [place] [address] Mr Imaging Referral ID Status Reason Start Date Expiration Date V isits Requested Visits Authorized [id number] Closed Auto-Generate d Referral 03/30/2022 05/29/2022 1 1 Specialty Diagnoses / Procedures [facility] Referred To Contact Nutrition Diagnoses Type 2 diabetes mellitus with hyperglycemia, without long-term current use of insulin (HCC) Procedures CONSULT TO NUTRITION THERAPY OFFICE/OUTPATIENT NEW HIGH MDM 60-74 MINUTES Savita Griffith APRN.CNP [address] [place] [address] Referral ID Status Reason Start Date Expiration Date Visits Requested Visits Authorized [id number] Authorized PCP Requested Referral 05/12/2022 05/12/2023 1 1 Specialty Diagnoses / Procedures Referred By Contac t Referred To Contact Diagnoses Type 2 diabetes mellitus with hyperglycemia, without long-term current use of insulin (HCC) Sukhdeep Muse MD [address] [place] [address] Referral ID Status Reason Start Date Expiration Date V isits Requested Visits Authorized [id number] Pending Review 1 1 Referral ID Status Reason Start Date Expiration Date Visits Re quested Visits Authorized [id number] Closed 1 1 Summary Purpose Family History No Family History Records FoundNo Family History Records FoundNo Family History Records Found Advance Directives No Advanced Directives Records FoundNo Advanced Directives Records FoundNo Advanced Directives Records Found Additional Source Comments Source Comments (unrecognize d section and content) In the event this informatio n is protected by the Federal Confidentiality of Alcohol and Drug Abuse Patient Records regulations: The Federal rules restrict any use of the information to criminally investigate or prosecute any alcohol or drug abuse patient.[facility] event this information is protected by the Federal Confidentiality of Alcohol and Drug Abuse Patient Records regulations: The Federal rules restrict any use of the information to criminally investigate or prosecute any alcohol or drug abuse patient.[facility] the event this information is protected by the Federal Confidentiality of Alcohol and Drug Abuse Patient Records regulations: The Federal rules restrict any use of the information to criminally investigate or prosecute any alcohol or drug abuse patient.[facility] the event this information is protected by the Federal Confidentiality of Alcohol and Drug Abuse Patient Records regulations: The Federal rules restrict any use of the information to criminally investigate or prosecute any alcohol or drug abuse patient.[facility] event this information is protected by the Federal Confidentiality of Alcohol and Drug Abuse Patient Records regulations: The Federal rules restrict any use of the information to criminally investigate or prosecute any alcohol or drug abuse patient.[facility] event this information is protected by the Federal Confidentiality of Alcohol and Drug Abuse Patient Records regulations: The Federal rules restrict any use of the information to criminally investigate or prosecute any alcohol or drug abuse patient.[facility] event this information is protected by the Federal Confidentiality of Alcohol and Drug Abuse Patient Records regulations: The Federal rules restrict any use of the information to criminally investigate or prosecute any alcohol or drug abuse patient.[facility] the event this information is protected by the Federal Confidentiality of Alcohol and Drug Abuse Patient Records regulations: The Federal rules restrict any use of the information to criminally investigate or prosecute any alcohol or drug abuse patient.[facility] the event this information is protected by the Federal Confidentiality of Alcohol and Drug Abuse Patient Records regulations: The Federal rules restrict any use of the information to criminally investigate or prosecute any alcohol or drug abuse patient.[facility] the event this information is protected by the Federal Confidentiality of Alcohol and Drug Abuse Patient Records regulations: The Federal rules restrict any use of the information to criminally investigate or prosecute any alcohol or drug abuse patient.[facility] event this information is protected by the Federal Confidentiality of Alcohol and Drug Abuse Patient Records regulations: The Federal rules restrict any use of the information to criminally investigate or prosecute any alcohol or drug abuse patient.[facility] the event this information is protected by the Federal Confidentiality of Alcohol and Drug Abuse Patient Records regulations: The Federal rules restrict any use of the information to criminally investigate or prosecute any alcohol or drug abuse patient.[facility] the event this information is protected by the Federal Confidentiality of Alcohol and Drug Abuse Patient Records regulations: The Federal rules restrict any use of the information to criminally investigate or prosecute any alcohol or drug abuse patient.[facility] the event this information is protected by the Federal Confidentiality of Alcohol and Drug Abuse Patient Records regulations: The Federal rules restrict any use of the information to criminally investigate or prosecute any alcohol or drug abuse patient.[facility] the event this information is protected by the Federal Confidentiality of Alcohol and Drug Abuse Patient Records regulations: The Federal rules restrict any use of the information to criminally investigate or prosecute any alcohol or drug abuse patient.[facility] the event this information is protected by the Federal Confidentiality of Alcohol and Drug Abuse Patient Records regulations: The Federal rules restrict any use of the information to criminally investigate or prosecute any alcohol or drug abuse patient.[facility] the event this information is protected by the Federal Confidentiality of Alcohol and Drug Abuse Patient Records regulations: The Federal rules restrict any use of the information to criminally investigate or prosecute any alcohol or drug abuse patient.[facility] the event this information is protected by the Federal Confidentiality of Alcohol and Drug Abuse Patient Records regulations: The Federal rules restrict any use of the information to criminally investigate or prosecute any alcohol or drug abuse patient.[facility] the event this information is protected by the Federal Confidentiality of Alcohol and Drug Abuse Patient Records regulations: The Federal rules restrict any use of the information to criminally investigate or prosecute any alcohol or drug abuse patient.[facility] the event this information is protected by the Federal Confidentiality of Alcohol and Drug Abuse Patient Records regulations: The Federal rules restrict any use of the information to criminally investigate or prosecute any alcohol or drug abuse patient.[facility] the event this information is protected by the Federal Confidentiality of Alcohol and Drug Abuse Patient Records regulations: The Federal rules restrict any use of the information to criminally investigate or prosecute any alcohol or drug abuse patient.[facility] the event this information is protected by the Federal Confidentiality of Alcohol and Drug Abuse Patient Records regulations: The Federal rules restrict any use of the information to criminally investigate or prosecute any alcohol or drug abuse patient.[facility] the event this information is protected by the Federal Confidentiality of Alcohol and Drug Abuse Patient Records regulations: The Federal rules restrict any use of the information to criminally investigate or prosecute any alcohol or drug abuse patient.[facility] event this information is protected by the Federal Confidentiality of Alcohol and Drug Abuse Patient Records regulations: The Federal rules restrict any use of the information to criminally investigate or prosecute any alcohol or drug abuse patient.[facility] the event this information is protected by the Federal Confidentiality of Alcohol and Drug Abuse Patient Records regulations: The Federal rules restrict any use of the information to criminally investigate or prosecute any alcohol or drug abuse patient.[facility] event this information is protected by the Federal Confidentiality of Alcohol and Drug Abuse Patient Records regulations: The Federal rules restrict any use of the information to criminally investigate or prosecute any alcohol or drug abuse patient.[facility] the event this information is protected by the Federal Confidentiality of Alcohol and Drug Abuse Patient Records regulations: The Federal rules restrict any use of the information to criminally investigate or prosecute any alcohol or drug abuse patient.[facility] event this information is protected by the Federal Confidentiality of Alcohol and Drug Abuse Patient Records regulations: The Federal rules restrict any use of the information to criminally investigate or prosecute any alcohol or drug abuse patient.[facility] event this information is protected by the Federal Confidentiality of Alcohol and Drug Abuse Patient Records regulations: The Federal rules restrict any use of the information to criminally investigate or prosecute any alcohol or drug abuse patient.[facility] the event this information is protected by the Federal Confidentiality of Alcohol and Drug Abuse Patient Records regulations: The Federal rules restrict any use of the information to criminally investigate or prosecute any alcohol or drug abuse patient.[facility] the event this information is protected by the Federal Confidentiality of Alcohol and Drug Abuse Patient Records regulations: The Federal rules restrict any use of the information to criminally investigate or prosecute any alcohol or drug abuse patient.[facility] event this information is protected by the Federal Confidentiality of Alcohol and Drug Abuse Patient Records regulations: The Federal rules restrict any use of the information to criminally investigate or prosecute any alcohol or drug abuse patient.[facility] the event this information is protected by the Federal Confidentiality of Alcohol and Drug Abuse Patient Records regulations: The Federal rules restrict any use of the information to criminally investigate or prosecute any alcohol or drug abuse patient.[facility] event this information is protected by the Federal Confidentiality of Alcohol and Drug Abuse Patient Records regulations: The Federal rules restrict any use of the information to criminally investigate or prosecute any alcohol or drug abuse patient.[facility] event this information is protected by the Federal Confidentiality of Alcohol and Drug Abuse Patient Records regulations: The Federal rules restrict any use of the information to criminally investigate or prosecute any alcohol or drug abuse patient.[facility] the event this information is protected by the Federal Confidentiality of Alcohol and Drug Abuse Patient Records regulations: The Federal rules restrict any use of the information to criminally investigate or prosecute any alcohol or drug abuse patient.[facility] the event this information is protected by the Federal Confidentiality of Alcohol and Drug Abuse Patient Records regulations: The Federal rules restrict any use of the information to criminally investigate or prosecute any alcohol or drug abuse patient.[facility] the event this information is protected by the Federal Confidentiality of Alcohol and Drug Abuse Patient Records regulations: The Federal rules restrict any use of the information to criminally investigate or prosecute any alcohol or drug abuse patient.[facility] the event this information is protected by the Federal Confidentiality of Alcohol and Drug Abuse Patient Records regulations: The Federal rules restrict any use of the information to criminally investigate or prosecute any alcohol or drug abuse patient.[facility] the event this information is protected by the Federal Confidentiality of Alcohol and Drug Abuse Patient Records regulations: The Federal rules restrict any use of the information to criminally investigate or prosecute any alcohol or drug abuse patient.[facility] the event this information is protected by the Federal Confidentiality of Alcohol and Drug Abuse Patient Records regulations: The Federal rules restrict any use of the information to criminally investigate or prosecute any alcohol or drug abuse patient.[facility] the event this information is protected by the Federal Confidentiality of Alcohol and Drug Abuse Patient Records regulations: The Federal rules restrict any use of the information to criminally investigate or prosecute any alcohol or drug abuse patient.[facility] the event this information is protected by the Federal Confidentiality of Alcohol and Drug Abuse Patient Records regulations: The Federal rules restrict any use of the information to criminally investigate or prosecute any alcohol or drug abuse patient.[facility] the event this information is protected by the Federal Confidentiality of Alcohol and Drug Abuse Patient Records regulations: The Federal rules restrict any use of the information to criminally investigate or prosecute any alcohol or drug abuse patient.[facility] the event this information is protected by the Federal Confidentiality of Alcohol and Drug Abuse Patient Records regulations: The Federal rules restrict any use of the information to criminally investigate or prosecute any alcohol or drug abuse patient.[facility] Care Teams (unrecognized sec tion and content) Law Writer Relationship Specialty Start Date End Date Sukhdeep Muse MD [address] [place] [address] PCP - General Family Practice 02/25/14 Law Writer Relationship Specialty Start Date End Date Sukhdeep Muse MD [address] [place] [id number] PCP - General Family Practice 02/25/14 Law Writer Relationship Specialty Start Date End Date Sukhdeep Muse MD [facility] [place] [address] PCP - General Family Practice 02/25/14 Law Writer Relationship Specialty Start Date End Date Sukhdeep Muse MD [facility] [place] [address] PCP - General Family Practice 02/25/14 Law Writer Relationship Specialty Start Date End Date Sukhdeep Muse MD [facility] [place] [address] PCP - General Family Practice 02/25/14 Law Writer Relationship Specialty Start Date End Date Sukhdeep Muse MD [facility] [place] [address] PCP - General Family Practice 02/25/14 Law Writer Relationship Specialty Start Date End Date Sukhdeep Muse MD [address] [place] [address] [place] [address] PCP - General Family Practice 02/25/14 Law Writer Relationship Specialty Start Date End Date Sukhdeep Muse MD [address] [facility] [place] [address] PCP - General Family Practice 02/25/14 Law Writer Relationship Specialty Start Date End Date Sukhdeep Muse MD [address] [facility] [place] [address] PCP - General Family Practice 02/25/14 Law Writer Relationship Specialty Start Date End Date Sukhdeep Muse MD [address] [facility] [place] [address] PCP - General Family Practice 02/25/14 Law Writer Relationship Specialty Start Date End Date Sukhdeep Muse MD [address] [facility] [place] [address] PCP - General Family Practice 02/25/14 Law Writer Relationship Specialty Start Date End Date Sukhdeep Muse MD [address] [facility] [place] [address] PCP - General Family Practice 02/25/14 Law Writer Relationship Specialty Start Date End Date Sukhdeep Muse MD [address] [facility] [place] [address] PCP - General Family Medicine 02/25/14 Law Writer Relationship Specialty Start Date End Date Sukhdeep Muse MD [address] [facility] [place] [address] PCP - General Family Medicine 02/25/14 Law Writer Relationship Specialty Start Date End Date Sukhdeep Mues MD [address] [facility] [place] [address] PCP - General Family Medicine 02/25/14 Law Writer Relationship Specialty Start Date End Date Sukhdeep Muse MD [address] [facility] [place] [address] PCP - General Family Medicine 02/25/14 Law Writer Relationship Specialty Start Date End Date Sukhdeep Muse MD [address] [facility] [place] [address] PCP - General Family Medicine 02/25/14 Law Writer Relationship Specialty Start Date End Date Sukhdeep Muse MD [address] [facility] [place] [address] PCP - General Family Medicine 02/25/14 Law Writer Relationship Specialty Start Date End Date Sukhdeep Muse MD [address] [facility] [place] [address] PCP - General Family Medicine 02/25/14 Law Writer Relationship Specialty Start Date End Date Sukhdeep Muse MD [address] [facility] [place] [address] PCP - General Family Medicine 02/25/14 Law Writer Relationship Specialty Start Date End Date Sukhdeep Muse MD [address] [facility] [place] [address] PCP - General Family Medicine 02/25/14 Law Writer Relationship Specialty Start Date End Date Sukhdeep Muse MD [address] [facility] [place] [address] PCP - General Family Medicine 02/25/14 Law Writer Relationship Specialty Start Date End Date Sukhdeep Muse MD [address] [facility] [place] [address] PCP - General Family Medicine 02/25/14 Law Writer Relationship Specialty Start Date End Date Sukhdeep Muse MD [address] [facility] [place] [address] PCP - General Family Medicine 02/25/14 Law Writer Relationship Specialty Start Date End Date Sukhdeep Muse MD [address] [place] [address] PCP - General Family Medicine 02/25/14 Law Writer Relationship Specialty Start Date End Date Sukhdeep Muse MD [address] [place], [place] [address] PCP - General Family Medicine 02/25/14 Law Writer Relationship Specialty Start Date End Date Sukhdeep Muse MD [address] [place], [place] [address] PCP - General Family Medicine 02/25/14 Law Writer Relationship Specialty Start Date End Date Sukhdeep Muse MD [address] [place], [place] [id number] PCP - General Family Medicine 02/25/14 Law Writer Relationship Specialty Start Date End Date Sukhdeep Muse MD [address] [place], [place] [address] PCP - General Family Medicine 02/25/14 Law Writer Relationship Specialty Start Date End Date Sukhdeep Muse MD [address] [place], [place] [address] PCP - General Family Medicine 02/25/14 Law Writer Relationship Specialty Start Date End Date Sukhdeep Muse MD [address] [place], [place] [address] PCP - General Family Medicine 02/25/14 Law Writer Relationship Specialty Start Date End Date Sukhdeep Muse MD [address] [place], [place] [id number] PCP - General Family Medicine 02/25/14 Reason for Visit (unrecogniz ed section and content) Specialty Diagnoses / Procedures Referred By Buck t Referred To Contact Hematology/Oncology / HEMATOLOGY/ONCOLOGY Diagnoses 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eft female breast C50.412 (ICD-10-CM) - 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eft female breast Procedures GOSERELIN ACETATE IMPLANT [id number] - GOSERELIN ACETATE IMPLANT Monica Manuel APRN.[employer] [address] [place] [address] Wstr, Injection Medhat [facility] [address] [place] [address] Referral ID Status Reason Start Date Expiration Date V isits Requested Visits Authorized [id number] Authorized 06/06/2020 05/13/2022 25 25 Reason Comments Results Reason Comments New Pain Specialty Diagnoses / Procedures Referred By Contac t Referred To Contact Podiatry Diagnoses Heel spur, right Pain in right foot Procedures CONSULT TO PODIATRY OFFICE/OUTPATIENT NEW HIGH MDM 60-74 MINUTES Monica Manuel, TRUMPET TEACHER.[employer] [address] [place] [address] Referral ID Status Reason Start Date Expiration Date V isits Requested Visits Authorized [id number] Closed PCP Requested Referral 12/04/2021 12/04/2022 1 1 Reason Onset Date Comments Opened In Error 01/18/2022 Specialty Diagnoses / Procedures Referred By Contonel t Referred To Contact MR IMAGING Diagnoses Personal history of breast cancer Fibrocystic breast changes of both breasts Procedures MRI BREAST WO/W IVCON BILAT MRI BREAST WITHOUT&WITH CONTRAST W/CAD BILATERAL Jade Blanco TRUMPET TEACHER.[employer] [address] [place] [address] Mr Imaging Referral ID Status Reason Start Date Expiration Date V isits Requested Visits Authorized [id number] Closed Auto-Generate d Referral 03/30/2022 05/29/2022 1 1 Reason Comments Diabetes Specialty Diagnoses / Procedures Referred By Contac t Referred To Contact Diagnoses Type 2 diabetes mellitus with hyperglycemia, without long-term current use of insulin (HCC) Procedures CONSULT TO DIABETES EDUCATION OFFICE/OUTPATIENT NEW HIGH MDM 60-74 MINUTES Savita Griffith, TRUMPET TEACHER.[employer] [address] [place] [address] [facility] [address] [place] [address] Referral ID Status Reason Start Date Expiration Date V isits Requested Visits Authorized [id number] Closed PCP Requested Referral 05/04/2022 05/04/2023 1 1 Reason Comments Nutrition Counseling Reason Comments 6 Month Exam Diabetes Reason Comments Patient Update Reason Onset Date Comments Refill Request 07/27/2022 Reason Comments Recheck 3 month follow up- D M Reason Comments Appointment Reason Onset Date Comments Refill Request 09/08/2022 Reason Onset Date Comments Refill Request 10/10/2022 Reason Onset Date Comments Refill Request 10/14/2022 Reason Onset Date Comments Refill Request 11/09/2022 Reason Onset Date Comments Refill Request 12/11/2022 Reason Onset Date Comments Refill Request 12/11/2022 Reason Onset Date Comments Refill Request 02/05/2023 Reason Comments Consult Increased GERD, omep razole was increased Specialty Diagnoses / Procedures Referred By Buck andrade Referred To Contact General Surgery Diagnoses Hiatal hernia with GERD without esophagitis Screening for colon cancer Lump of skin of back Procedures CONSULT TO GENERAL SURGERY OFFICE/OUTPATIENT [facility] MDM 60-74 MINUTES Sukhdeep Muse MD [address] [place] [address] Referral ID Status Reason Start Date Expiration Date V isits Requested Visits Authorized [id number] Closed PCP Requested Referral 01/15/2023 01/15/2024 1 1 Reason Onset Date Comments Refill Request 03/08/2023 Reason Comments Dental Problem right side top/botto m tooth pain with swelling x 3 days Reason Onset Date Comments Refill Request 03/09/2023 Reason Onset Date Comments Refill Request 05/30/2023 Reason Comments Appointment Rescheduled Reason Comments Established Patient Reason Onset Date Comments Refill Request 06/29/2023 Reason Onset Date Comments Refill Request 06/30/2023 Reason Comments Follow Up INFORMATION SOURCE (unrecogn ized section and content) DATE CREATED AUTHOR AUTHOR'S ORGANIZ ATION 09/18/2023 [facility] DATE CREATED AUTHOR AUTHOR'S ORGANIZ ATION 10/07/2023 [facility] FOR RECORDS PERTAINING TO PATIENTS WHO ARE OR HAVE BEEN ENROLLED IN A CHEMICAL DEPENDENCY/SUBSTANCEABUSE PROGRAM, SOME INFORMATION MAY BE OMITTED. This clinical summary was aggregated from multiple sources. Caution should be exercised in using it in the provision of clinical care. This summary normalizes information from multiple sources, and as a consequence, information in this document may materially change the coding, format and clinical context of patient data. In addition, data may be omitted in some cases. CLINICAL DECISIONS SHOULD BE BASED ON THE PRIMARY CLINICAL RECORDS. [facility] ST[facility]. provides no warranty or guarantee of the accuracy or completeness of information in this document.
[2023-10-11 14:39] LABS: Thyroid Stim Hormone (TSH) 2.15 uIU/mL (0.358-3.74)
== END | disposition home or self-care (01) ==
LOC: PAVLAB 13:28
PROVIDERS: PCP Family Medicine; Referring Provider Nurse Practitioner Women's Health; Visit Provider Nurse Practitioner Women's Health
DX: N93.9 Abnormal uterine and vaginal bleeding, unspecified (principal)
CPT/HCPCS: 36415; 84443; 85025

== ENCOUNTER → 2023-10-12 | Outpatient (CLI) | payer MEDICAID, SELFPAY ==
--- NOTE | 2023-10-12 | EMB_PTH ---
PATHOLOGY RESULTS PATIENT: SILVIA MILLER [facility] U#:[id number] AGE/SX: 48/F ROOM: RE10/12/[address]: THONG Naranjo : 1975 BED: DIS: 10/12/2023 SPEC #: [id number] RECD: 10/12/23 12:17 STATUS: MARV BREANNA #: [id number] KUSH: 10/12/23 00:[address]: Darline Hutton NP DEPT: SURGICAL PATHOLOGY RECD BY: Shawanda Britton ENTERED: 10/12/23 12:17 SP TYPE: ENDOM BX/C MAGDALENA DR: Dr. Sukhdeep Muse MD Tissues: Endometrium, NOS Procedures: Surgery Specimen Level IV HEADER OPERATION: Endometrial biopsy PRE-OP DIAGNOSIS: Postmenopausal bleeding TISSUE SUBMITTED: Endometrial biopsy MICROSCOPIC DIAGNOSIS Endometrial biopsy: Proliferative endometrium with focal area of disordered proliferative endometrium. SJ:yesika 10/13/2023 MICROSCOPIC DESCRIPTION Slides are reviewed. GROSS DESCRIPTION Received is one container labeled with the patient's name and not further designated. The specimen consists of multiple irregular fragments of carlton mucoid tissue that in aggregate measure 2.5 x 1.5 x 0.1 cm. The specimen is totally submitted in one cassette. / SJ:yesika 10/12/2023 TC:5 CPT: [id number]
== END | disposition home or self-care (01) ==
PROVIDERS: PCP Family Medicine; Referring Provider Nurse Practitioner Women's Health; Visit Provider Nurse Practitioner Women's Health
DX: N95.0 Postmenopausal bleeding (principal)
CPT/HCPCS: 88305

== ENCOUNTER → 2024-03-12 | Outpatient (CLI) | payer MEDICAID, SELFPAY ==
[2024-03-12 10:39] LABS: Estradiol 179.9 pg/mL; Follicle Stimulating Hormone 11.4 mIU/mL; Prolactin 6.3 ng/mL
[2024-03-16 14:08] LABS: Testosterone Free 1.2 pg/mL (0.0-4.2)
[2024-03-18 15:07] LABS: 17-Hydroxyprogesterone 61 ng/dL (.)
== END | disposition home or self-care (01) ==
LOC: PAVLAB 09:50
PROVIDERS: PCP Family Medicine; Referring Provider Obstetrics & Gynecology; Visit Provider Obstetrics & Gynecology
DX: N95.1 Menopausal and female climacteric states (principal)
CPT/HCPCS: 36415; 82627; 82670; 83001; 83498; 84146; 84402; 82626

== ENCOUNTER → 2024-05-28 | Outpatient (CLI) | payer MEDICAID, SELFPAY | END | disposition home or self-care (01) | LOC: LAB 13:40 | PROVIDERS: PCP Family Medicine; Referring Provider Obstetrics & Gynecology; Visit Provider Obstetrics & Gynecology | DX: Z85.3 Personal history of malignant neoplasm of breast (principal) | CPT/HCPCS: 36415 ==

== ENCOUNTER 2024-06-18 12:17 | Emergency (ER) | payer MEDICAID, SELFPAY ==
[2024-06-18 12:18] VITALS: BP 151/87; PULSE 88; RESP 18; TEMP 36.4; O2SAT 97; BMI 44.3
--- NOTE | 2024-06-18 12:51 | US_ITS ---
STUDY: ULTRASOUND OF THE FEMALE PELVIS - COMPLETE REASON FOR EXAM: Female, 49 years old. Vaginal bleeding LMP: April 27, 2024. TECHNIQUE: Transvaginal TECHNICAL QUALITY: Adequate. COMPARISON: Comparison is made with prior study dated June 01, 2023. FINDINGS: The uterus is anteverted and is in a midline position. The uterus measures 10 cm x 7.1 cm x 5.6 cm. There is a Nabothian cyst of the cervix. The endometrium measures 10 mm in thickness, and is hyperechoic. There is no demonstrated endometrial mass. There is no demonstrated myometrial mass. I.U.D. - The patient does not have an I.U.D. The right ovary is visualized. The right ovary measures 3.4 cm x 3.7 cm x 3 cm. There is no right ovarian cyst or ovarian mass. There is no visualized right adnexal mass or complex lesion. There is normal arterial and normal venous vascularity. The left ovary is visualized. The left ovary measures 2.7 cm x 2.5 cm x 2 cm. There is no left ovarian cyst or ovarian mass. There is no visualized left adnexal mass or complex lesion. There is normal arterial and normal venous vascularity. There is no fluid in the cul-de-sac. US/Transvaginal Non- IMPRESSION: Endometrial thickening. Electronically Signed: Chet Valdes MD at 14:57 EDT ,
--- NOTE | 2024-06-18 12:57 | ED.VIS.FEGU ---
HPI <THONG Hugo - Last Filed: 06/18/24 15:57> HPI - Female History of Present Illness Chief Complaint: Vag Bleeding Narrative Narrative: Patient is a 49-year-old female with history of obesity, diabetes, breast cancer with a partial mastectomy presenting to the emergency department for vaginal bleeding for the last 3 days. Patient did have something similar a few months ago, she does see Dr. Wick for this. Patient states today she felt more weak, she denies any chest pain or shortness of breath. Patient states that she is going through a pad every 2 hours. She called her IT SECURITY ENGINEER who referred her to the emergency department. She does state to have some lower abdominal cramping that radiates to the right flank. [facility] <THONG Hugo - Last Filed: 06/18/24 15:57> [facility] Medical History Diabetes Leg pain Anxiety and depression History of breast cancer Pulmonary embolism Home Medications ?Medication ?Instructions ?Recorded ?Last Taken ?Type multivitamin with folic acid 400 1 tab PO DAILY 02/17/14 Unknown History mcg tablet omeprazole 20 mg capsule,delayed 20 mg PO DAILY 02/17/14 Unknown History release losartan 50 mg tablet 50 mg PO DAILY 12/18/17 Unknown History dulaglutide 1.5 mg/0.5 mL 1.5 mg subcut QWEEK 06/22/22 Unknown History subcutaneous pen injector (Trulicity) metformin 500 mg tablet 500 mg PO BID 06/22/22 Unknown History ascorbate calcium (vitamin C) 500 500 mg PO DAILY 05/24/23 Unknown History mg tablet bupropion HCl 75 mg tablet 75 mg PO TID 10/12/23 Unknown History naproxen 500 mg tablet 500 mg PO BID PRN pain #30 tabs 11/25/23 Unknown Rx fluoxetine 60 mg tablet 60 mg PO QDAY 05/28/24 Unknown History sucralfate 1 gram tablet (Carafate) 1 g PO BID 05/28/24 Unknown History Allergy/AdvReac Type Severity Reaction Status Date / Time ketorolac tromethamine (From Allergy Hives Verified 06/18/24 12:21 Toradol) nitrofurantoin Allergy Hives Verified 06/18/24 12:21 Family History Mother A-fib CVA (cerebral vascular accident) Father A-fib Grandmother Breast cancer Surgical History History of bilateral breast reduction surgery Hx of tubal ligation History of lumpectomy History of mastectomy Social History (Updated 05/28/24 @ 13:05 by Darline Modi) number of children: 2 current occupational status: unemployed Smoking Status: Never smoker alcohol intake: never substance use type: does not use caffeine: Yes what type of physical activity do you participate in: walking seatbelt use: always do you feel safe at home: Yes 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 ROS <THONG Hugo - Last Filed: 06/18/24 15:57> ROS ED ROS Narrative Constitutional: Negative for fever, chills, weight loss, weakness Eyes: Negative for vision loss, vision change, double vision ENT: Negative for any sore throat, ear pain, congestion Cardiovascular: Negative for any chest pain, tightness, palpitations Respiratory: Negative for any cough, sputum production, hemoptysis, dyspnea, dyspnea on exertion, orthopnea Gastrointestinal: Negative for any abdominal pain, nausea, vomiting, diarrhea, constipation, blood in stool, blood in vomit : Negative for any urinary frequency, dysuria, retention, blood in urine. Positive for vaginal bleeding, lower abdominal cramping Muscle skeletal: Negative for any neck pain, back pain Neurological: Negative for any headache, syncope, dizziness Skin: Negative for any rashes, itching, abrasions, lacerations Psychiatric: Negative for any depression, anxiety, stress, suicidal ideation, homicidal ideation Hematologic: Negative for any excessive bruising, easy bleeding EXAM <THONG Hugo - Last Filed: 06/18/24 15:57> Physical Exam Narrative Exam Narrative: Vital signs reviewed. HEET: Head normocephalic atraumatic, TMs clear bilaterally. Posterior pharynx is clear, moist mucous membranes. Nares clear bilaterally. Neck: Supple with no lymphadenopathy or tenderness. No signs of meningismus. Cardiac: Regular rate and rhythm no murmurs gallops or rubs, equal peripheral pulses bilaterally. Respiratory: Lungs clear to auscultation bilaterally. No chest tenderness. Abdomen: Soft, nontender, nondistended. No abdominal bruit or pulsatile masses. No hepatosplenomegaly. Negative for any peritoneal signs Extremities: No peripheral edema, no signs of gross trauma or deformity. Active full range of motion of all extremities. Neuro: Cranial nerves II through XII intact, no focal neurological deficits. Skin: Clean dry and intact with no rash, purpura, petechiae, vesicles or pustules. Backs/flank: No CVA tenderness, no midline spinal tenderness, no deformity. Psych: Normal mood and affect. No SI, HI or acute psychosis. Const Vital Signs: 06/18/24 12:18 06/18/24 14:41 06/18/24 16:00 Temperature 97.6 F L Temperature Source Oral Pulse Rate 88 87 85 Respiratory Rate 18 16 18 Blood Pressure 151/87 H 148/79 H 136/82 H Blood Pressure Mean 108 102 100 Pulse Ox 97 99 95 Oxygen Delivery Method Room Air 06/18/24 16:08 Temperature 97.9 F Temperature Source Pulse Rate 85 Respiratory Rate 18 Blood Pressure 136/82 H Blood Pressure Mean 100 Pulse Ox 95 Oxygen Delivery Method <Dr. Twan Marmolejo DO - Last Filed: 06/18/24 19:51> Physical Exam Const Vital Signs: 06/18/24 12:18 06/18/24 14:41 06/18/24 16:00 Temperature 97.6 F L Temperature Source Oral Pulse Rate 88 87 85 Respiratory Rate 18 16 18 Blood Pressure 151/87 H 148/79 H 136/82 H Blood Pressure Mean 108 102 100 Pulse Ox 97 99 95 Oxygen Delivery Method Room Air 06/18/24 16:08 Temperature 97.9 F Temperature Source Pulse Rate 85 Respiratory Rate 18 Blood Pressure 136/82 H Blood Pressure Mean 100 Pulse Ox 95 Oxygen Delivery Method [facility] <THONG Hugo - Last Filed: 06/18/24 15:57> [facility] Lab Data Labs: Laboratory Results - last 24 hr 06/18/24 06/18/24 13:00 15:28 WBC 7.4 RBC 4.60 Hgb 13.7 Hct 40.9 MCV 88.9 MCH 29.8 MCHC 33.5 RDW Std Deviation 43.9 RDW Coeff of Casie 13.6 Plt Count 263 MPV 9.9 Immature Gran % (Auto) 0.400 Neut % (Auto) 53.9 Lymph % (Auto) 35.8 [place] % (Auto) 6.8 Eos % (Auto) 2.3 Baso % (Auto) 0.8 Absolute Neuts (auto) 4.0 Absolute Lymphs (auto) 2.65 Nucleated RBC % 0 Sodium 138 Potassium 3.4 L Chloride 107 Carbon Dioxide 24.0 Anion Gap 7 BUN 11 Creatinine 0.66 Estim Creat Clear Calc 142.10 Est GFR (MDRD) Af Amer 123 Est GFR (MDRD) Non-Af 102 BUN/Creatinine Ratio 16.6 Glucose 91 Calcium 9.1 Urine Color Red Urine Clarity Turbid Urine pH 6.0 Ur Specific [place] 1.015 Urine Protein 100 H Urine Glucose (UA) Normal Urine Ketones Negative Urine Occult Blood 250 H Urine Nitrite Negative Urine Bilirubin Negative Urine Urobilinogen Normal Ur Leukocyte Esterase 100 H Urine RBC 25-50 SEEN Urine WBC 5-10 SEEN Ur Squamous Epith Cells 0-5 SEEN Urine Bacteria RARE Urine Mucus 0 SEEN Urine Test Negative Blood Type O POSITIVE Antibody Screen NEGATIVE Radiography Diagnostic Testing: Clinical Impression(s) from Imaging Studies Transvaginal US 06/18/24 12:51 IMPRESSION: Endometrial thickening. Electronically Signed: Chet Valdes MD at 14:57 EDT , Treatment and Re-Evaluation Narrative: Differential diagnosis includes however is not limited to: Dysmenorrhea, mass, ovarian torsion, heavy menstrual cycle Patient appears generally well, vital signs are stable, patient is nontoxic-appearing. Presenting to the emergency department with complaints of vaginal bleeding, feeling of weakness. Patient will receive some basic laboratory values, looking for any anemia, patient will receive a type and screen. Patient will receive a transvaginal ultrasound looking for any hemorrhage, mass. I will likely need to reach out to IT SECURITY ENGINEER who she spoke to. All radiologic examinations were read, reviewed by the emergency department attending. From these reads, a plan of care will be put in place. Patient CBC shows a stable hemoglobin at 13.7, no leukocytosis. Chemistries are unremarkable. Patient's transvaginal ultrasound shows endometrial thickening, no other acute process. At this time, I will reach out to IT SECURITY ENGINEER. Spoke with IT SECURITY ENGINEER, at this time, secondary the patient's normal heart rate, blood pressure within normal limits, patient's hemoglobin is stable, patient will be able to follow-up outpatient. I will wait for the patient's urinalysis. Patient should be getting a call from the IT SECURITY ENGINEER office today for close follow-up. All questions were answered, patient was given strict return precaution, stable for discharge. Urinalysis negative for any infection. Stable for discharge peer <Dr. Twan Marmolejo, - Last Filed: 06/18/24 19:51> [facility] Lab Data Labs: Laboratory Results - last 24 hr 06/18/24 06/18/24 13:00 15:28 WBC 7.4 RBC 4.60 Hgb 13.7 Hct 40.9 MCV 88.9 MCH 29.8 MCHC 33.5 RDW Std Deviation 43.9 RDW Coeff of Casie 13.6 Plt Count 263 MPV 9.9 Immature Gran % (Auto) 0.400 Neut % (Auto) 53.9 Lymph % (Auto) 35.8 [place] % (Auto) 6.8 Eos % (Auto) 2.3 Baso % (Auto) 0.8 Absolute Neuts (auto) 4.0 Absolute Lymphs (auto) 2.65 Nucleated RBC % 0 Sodium 138 Potassium 3.4 L Chloride 107 Carbon Dioxide 24.0 Anion Gap 7 BUN 11 Creatinine 0.66 Estim Creat Clear Calc 142.10 Est GFR (MDRD) Af Amer 123 Est GFR (MDRD) Non-Af 102 BUN/Creatinine Ratio 16.6 Glucose 91 Calcium 9.1 Urine Color Red Urine Clarity Turbid Urine pH 6.0 Ur Specific [place] 1.015 Urine Protein 100 H Urine Glucose (UA) Normal Urine Ketones Negative Urine Occult Blood 250 H Urine Nitrite Negative Urine Bilirubin Negative Urine Urobilinogen Normal Ur Leukocyte Esterase 100 H Urine RBC 25-50 SEEN Urine WBC 5-10 SEEN Ur Squamous Epith Cells 0-5 SEEN Urine Bacteria RARE Urine Mucus 0 SEEN Urine Test Negative Blood Type O POSITIVE Antibody Screen NEGATIVE Radiography Diagnostic Testing: Clinical Impression(s) from Imaging Studies Transvaginal US 06/18/24 12:51 IMPRESSION: Endometrial thickening. Electronically Signed: Chet Valdes MD at 14:57 EDT , Treatment and Re-Evaluation Narrative: Differential diagnosis includes however is not limited to: Dysmenorrhea, mass, ovarian torsion, heavy menstrual cycle Patient appears generally well, vital signs are stable, patient is nontoxic-appearing. Presenting to the emergency department with complaints of vaginal bleeding, feeling of weakness. Patient will receive some basic laboratory values, looking for any anemia, patient will receive a type and screen. Patient will receive a transvaginal ultrasound looking for any hemorrhage, mass. I will likely need to reach out to IT SECURITY ENGINEER who she spoke to. All radiologic examinations were read, reviewed by the emergency department attending. From these reads, a plan of care will be put in place. Patient CBC shows a stable hemoglobin at 13.7, no leukocytosis. Chemistries are unremarkable. Patient's transvaginal ultrasound shows endometrial thickening, no other acute process. At this time, I will reach out to IT SECURITY ENGINEER. Spoke with IT SECURITY ENGINEER, at this time, secondary the patient's normal heart rate, blood pressure within normal limits, patient's hemoglobin is stable, patient will be able to follow-up outpatient. I will wait for the patient's urinalysis. Patient should be getting a call from the IT SECURITY ENGINEER office today for close follow-up. All questions were answered, patient was given strict return precaution, stable for discharge. Urinalysis negative for any infection. Stable for discharge Supervisory Physician Note Patient was seen and examined with the Advanced Practice Provider. Nursing notes and vital signs have been reviewed. Pertinent old records have been reviewed. I agree with the essential elements of the ADY's history, physical exam, assessment, and plan. The differential diagnosis and management options were discussed with the ADY. I participated in determining and agree with the management, procedures, final impression and disposition as documented. See changes noted by me. Please see addendum or separate note for any additional details. 49-year-old female with history of breast cancer presents for evaluation of heavy vaginal bleeding. Patient states she has always had heavy menstrual cycles. Since her diagnosis of breast cancer a year ago patient has had irregular menstrual cycles. States she had a menstrual cycle in November and April of this year. 3 days ago developed heavy vaginal bleeding. Endorses pelvic cramping. 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 States she is going through pads frequently. No tampons. Endorses weakness but denies fever, chills, lightheadedness, chest pain, shortness of breath, nausea, vomiting, dysuria. Pertinent physical exam findings: CV: RRR, no murmurs Resp: Lungs CTA BL, no w/r/c GI: Abd soft, non-distended, non-tender, no r/r/g Differential diagnosis includes but is not limited to dysmenorrhea, menorrhagia, endometrial cancer, anemia Basic labs ordered including transvaginal ultrasound. CBC without leukocytosis or anemia. BMP relatively unremarkable. UA negative for blood but positive for UTI. US with endometrial thickening. Patient's ARTIFICIAL SNOW MAKING MACHINE OPERATOR was contacted and patient was discussed. Given patient's stable vitals without anemia plan is for discharge home and follow-up outpatient. Impression: 1. Menorrhagia 2. Metrorrhagia Discharge Plan Triage Chief Complaint: Vag Bleeding ED Midlevel Provider: Conrado Rosas ED Provider: Twan Marmolejo Dx/Rx/DC Orders Clinical Impression: Dysmenorrhea, Vaginal bleeding Instructions: ED Dysfunctional Uterine Bleeding, ED MENSTRUAL CRAMPING Prescriptions: No Action metformin 500 mg tablet 500 mg PO BID Trulicity 1.5 mg/0.5 mL pen injector 1.5 mg subcut QWEEK ascorbate calcium (vitamin C) 500 mg tablet 500 mg PO DAILY bupropion HCl 75 mg tablet 75 mg PO TID Rx Instructions: administer 6 hours apart naproxen 500 mg tablet 500 mg PO BID PRN (Reason: pain) Qty: 30 2RF Rx Instructions: administer with food or milk fluoxetine 60 mg tablet 60 mg PO QDAY sucralfate [Carafate] 1 gram tablet 1 g PO BID omeprazole 20 MG capsule 20 mg PO DAILY Patient Comments: acid reflux multivitamin with folic acid 1 TABLET tablet 1 tab PO DAILY Patient Comments: supplement losartan 50 MG tablet 50 mg PO DAILY Primary Care Provider: Sukhdeep Muse Referrals: Alejandra Wick MD [Med Staff - Active Staff] - Sukhdeep Muse MD [Primary Care Provider] - Activity Restrictions/Additional Instructions: You should be getting a call from the IT SECURITY ENGINEER office, you need to follow-up early this week. Return for any worsening bleeding, dizziness, syncope, worsening uncontrolled pain. Print Language: Iranian Disposition Disposition: Home, Self Care Discharge Date/Time: 06/18/24 16:09
[2024-06-18 13:21] LABS: Absolute Lymphocyte Count 2.65 X10^3/uL (0.83-4.51); Basophil# 0.06 X10^3/uL; Basophil% 0.8 % (0-1); Eosinophil# 0.17 X10^3/uL; Eosinophils% 2.3 % (0-5); Hematocrit 40.9 % (37-47); Hemoglobin 13.7 g/dL (12.0-15.0); Lymphocyte # 2.65 X10^3/ul (0.83-4.51); Lymphocyte % 35.8 % (19-41); Mean Corp Hgb Conc 33.5 g/dL (32-36); Mean Corpuscular Hgb 29.8 pg (27.0-32.0); Mean Corpuscular Volume 88.9 fL (81-99); Mean Platelet Vol. 9.9 fl (6.2-12.0); Monocyte% 6.8 % (0-10); NRBC Flagged by Analyzer 0 % (0-5); Neutrophil # 3.99 X10^3/uL (2.7-7.7); Neutrophil % 53.9 % (47-70); Platelet Count 263 K/mm3 (150-450); RBC Distribution Width CV 13.6 % (11.6-14.6); RBC Distribution Width SD 43.9 fl (35.1-43.9); White Blood Count 7.4 K/mm3 (4.4-11.0)
[2024-06-18 13:32] LABS: Anion Gap 7 (5-15); BUN 11 mg/dL (7-18); BUN/Creat Ratio 16.6 RATIO (10-20); Calcium,Total 9.1 mg/dL (8.5-10.1); Chloride 107 mmol/L (98-107); Creatinine, Serum 0.66 mg/dL (0.55-1.02); EST Glomerular Filtration Rate 102 mL/min (>60); Est Glom Filt Rate - Afr Amer 123 mL/min (>60); Glucose 91 mg/dL (74-106); Potassium 3.4 mmol/L (3.5-5.1); Sodium Level 138 mmol/L (136-145)
[2024-06-18 14:41] VITALS: BP 148/79; PULSE 87; RESP 16; O2SAT 99
[2024-06-18 15:33] LABS: Mucous, Urine 0 SEEN /hpf (<or=2+)
[2024-06-18 15:37] LABS: Color, Urine Red (Yellow); Glucose, Dipstick Normal (Normal); Ketone-Dipstick Negative (Negative); Leukocyte Esterase-Dipstick 100 /ul (Negative); Nitrite-Dipstick Negative (Negative); Occult Blood-Urine 250 /ul (Negative); Protein-Dipstick 100 mg/dl (Negative); Specific Gravity, Urine 1.015 (1.002-1.030); Urine Bilirubin Dipstick Negative (Negative); Urine Clarity Turbid (Clear); Urine Urobilinogen Normal (Normal)
[2024-06-18 15:41] LABS: Internal QC Validated? YES +Cl - CLEAR BKGD
[2024-06-18 15:42] LABS: Pregnancy, Urine Negative Negative
[2024-06-18 15:50] LABS: Bacteria RARE /hpf (None Seen); Red Blood Cells-Urine 25-50 SEEN /hpf (0-5); Squamous Epithelial Cells - UA 0-5 SEEN /hpf (5-10); White Blood Cells 5-10 SEEN /hpf (0-5)
[2024-06-18 16:00] VITALS: BP 136/82; PULSE 85; RESP 18; O2SAT 95
[2024-06-18 16:08] VITALS: BP 136/82; PULSE 85; RESP 18; TEMP 36.6; O2SAT 95
== END 2024-06-18 16:09 | disposition home or self-care (01) ==
PROVIDERS: Nurse Practitioner; Emergency Provider Surgery; PCP Family Medicine; Visit Provider Surgery
DX: N92.0 Excessive and frequent menstruation with regular cycle (principal); E11.9 Type 2 diabetes mellitus without complications; N93.9 Abnormal uterine and vaginal bleeding, unspecified; N94.6 Dysmenorrhea, unspecified; E66.9 Obesity, unspecified; N92.1 Excessive and frequent menstruation with irregular cycle; Z79.84 Long term (current) use of oral hypoglycemic drugs
CPT/HCPCS: 76830; 80048; 81001; 81025; 85025; 86850; 86900; 86901; 99283

== ENCOUNTER → 2024-06-22 | Outpatient (CLI) | payer MEDICAID, SELFPAY ==
--- NOTE | 2024-06-22 | EMB_PTH ---
PATIENT: SILVIA MILLER LOC: [facility] U#:[id number] AGE/SX: 49/F ROOM: RE06/22/[address]: Dr. Alejandra Wick MD : 1975 BED: DIS: 06/22/2024 SPEC #: [id number] RECD: 06/22/24 12:18 STATUS: MARV RECami #: [id number] KUSH: 06/22/24 00:[address]: Alejandra Wick DEPT: SURGICAL PATHOLOGY RECD BY: Ashley Abdul ENTERED: 06/22/24 13:39 SP TYPE: ENDOM BX/C MAGDALENA DR: Dr. Sukhdeep Muse MD Tissues: Endometrium, NOS Procedures: Surgery Specimen Level IV HEADER OPERATION: Endometrial biopsy PRE-OP DIAGNOSIS: Abnormal uterine bleeding TISSUE SUBMITTED: Endometrial lining MICROSCOPIC DIAGNOSIS Endometrial biopsy: Proliferative endometrium. 06/25/2024 MICROSCOPIC DESCRIPTION Slides are reviewed. GROSS DESCRIPTION Received is one container labeled with the patient's name and not further designated. The specimen consists of multiple irregular and elongated fragments of red- carlton soft tissue that in aggregate measure 2.5 x 1.5 x 0.1 cm. The specimen is totally submitted in one cassette. 06/22/2024 TC:4 CPT:08239
== END | disposition home or self-care (01) ==
LOC: LABSPEC 11:08
PROVIDERS: PCP Family Medicine; Referring Provider Obstetrics & Gynecology; Visit Provider Obstetrics & Gynecology
DX: N93.9 Abnormal uterine and vaginal bleeding, unspecified (principal)
CPT/HCPCS: 88305

== ENCOUNTER 2024-07-31 09:30 | Day surgery (SDC) | payer MEDICAID, SELFPAY ==
[2024-07-31] VITALS (9 sets, daily range): BP systolic 130–160; BP diastolic 71–97; PULSE 84–108; RESP 16; TEMP 36.2–36.6; O2SAT 93–100; BMI 43.4
[2024-07-31 09:48] LABS: Internal QC Validated? YES +Cl - CLEAR BKGD; Pregnancy, Urine Negative Negative
[2024-07-31] MEDS: Enoxaparin 40 MG/0.4 ML Syringe SC (09:51)
[2024-07-31 09:58] LABS: Hematocrit 40.6 % (37-47); Hemoglobin 13.6 g/dL (12.0-15.0); Mean Corp Hgb Conc 33.5 g/dL (32-36); Mean Corpuscular Hgb 29.5 pg (27.0-32.0); Mean Corpuscular Volume 88.1 fL (81-99); Mean Platelet Vol. 9.7 fl (6.2-12.0); Platelet Count 339 K/mm3 (150-450); RBC Distribution Width SD 41.8 fl (35.1-43.9); Red Blood Count 4.61 M/mm3 (4.2-5.4); White Blood Count 8.9 K/mm3 (4.4-11.0)
--- NOTE | 2024-07-31 10:06 | PRE.ANES_ITS ---
ASA Classification* ASA Classification ASA Classification: 3 Assessment & Plan Anesthesia* Anesthesia Assessment Anesthesia Assessment: Discussed sedation and/or anesthesia options, risks, benefits, and alternatives with patient/parents/legal guardian/POA. Questions invited. The patient/parents/legal guardian/POA seems to understand and agrees to proceed with anesthesia plan. Reviewed the physical assessment, medical history, allergy history and patient home medications list prior to surgery/procedure/anesthetic and documented any changes. Performed airway and anesthesia risk assessments. Anesthesia Type Anesthesia Type: MAC History Source History Obtained from:: Patient and Chart Anesthesia Focused Assessment* Temperature: 97.2 F Pulse Rate: 108 Blood Pressure: 130/71 Respiratory Rate: 16 Pulse Ox: 98 Oxygen Delivery Method: Room Air Airway Assessment Mouth opens: >3 cm Mallampati Score: II Teeth Condition: Missing (Patient has several missing teeth. Rest of the teeth are tight.) Neck Range of motion (ROM): Limited ROM (slight decrease in extension) Focused Labs Anesthesia Preop lab: CBC WBC 8.9 K/mm3 (4.4-11.0) 07/31/24 09:50 RBC 4.61 M/mm3 (4.2-5.4) 07/31/24 09:50 Hgb 13.6 g/dL (12.0-15.0) 07/31/24 09:50 Hct 40.6 % (37-47) 07/31/24 09:50 Plt Count 339 K/mm3 (150-450) 07/31/24 09:50 CHEMISTRY Potassium 3.4 mmol/L (3.5-5.1) L 06/18/24 13:00 Sodium 138 mmol/L (136-145) 06/18/24 13:00 BUN 11 mg/dL (7-18) 06/18/24 13:00 Creatinine 0.66 mg/dL (0.55-1.02) 06/18/24 13:00 Glucose 91 mg/dL (74-106) 06/18/24 13:00 TSH 2.15 uIU/mL (0.358-3.74) 10/11/23 13:30 COAG PT 14.3 SECONDS (11.9-14.4) 02/22/14 09:43 Urine Test Negative Negative 07/31/24 09:40 Pre-Assessment Diagnosis/Proposed Procedure Planned Operative Procedure(s): Hysteroscopy,D&C Demi Anesthesia History Anesthesia History - engineering scientist: Anesthesia History - engineering scientist Hx Hospitalization No 07/24/24 10:15 Any Problems With Anesthesia No 07/24/24 10:15 Cholinesterase deficiency No 07/24/24 10:15 You/Your Family Experience No 07/24/24 10:15 fever (hyperthermia) with Relationship Recent Exposure to Contagious No 07/31/24 09:43 Disease Does patient have nerve No 07/24/24 10:15 stimulator Patient instructed to have device shut off --Does patient have Pacemaker No 07/31/24 09:43 or ICD? When Was Last Pacemaker Check QUESTION #4 FULL TEXT: You/Your Family Experience fever (hyperthermia) with Anesthesia Last Oral Intake Last Oral intake: Last Oral Intake NPO since 19:00 07/31/24 09:43 Meds taken in AM with sips of No 07/31/24 09:43 water? Meds patient instructed to take am of surgery PONV PONV - engineering scientist: PONV - engineering scientist Female Yes 07/24/24 10:15 HX of Motion Sickness No 07/24/24 10:15 HX of N/V After Surgery No 07/24/24 10:15 Non-Smoker Yes 07/24/24 10:15 Duration of Surgery greater No 07/24/24 10:15 than 60 minutes Number of Risk Factors 2 07/24/24 10:15 PONV Score Moderate Risk 07/24/24 10:15 Height & Weight Height & Weight: Anesthesia: Height & Weight Height 5 ft 6 in 07/31/24 09:43 Weight: 122.016 kg 07/31/24 09:43 Body Mass Index (BMI) 43.4 07/31/24 09:43 Respiratory Assessment Respiratory Assessment - engineering scientist: Respiratory Tract Infection Hx - engineering scientist Hx Respiratory Tract Infection No 07/24/24 10:15 STOP Sleep Apnea STOP Sleep Apnea - engineering scientist: STOP Sleep Apnea - engineering scientist Hx Hypertension Yes: CONTROLLED ON MED 07/24/24 10:15 Hx Sleep Apnea No 07/24/24 10:15 CPAP No 07/24/24 10:15 BIPAP No 07/24/24 10:15 Do you snore loudly (louder Yes 07/24/24 10:15 than talking or can be heard Do you often feel tired/ No 07/24/24 10:15 fatigued/ sleepy during daytime? Has anyone observed you stop No 07/24/24 10:15 breathing during sleep? STOP Results Positive 07/24/24 10:15 QUESTION #5 FULL TEXT : Do you snore loudly (louder than talking or can be heard through closed doors)? 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 Specify any problems Hx of Preganancy in last 3 No 07/24/24 10:15 Months Nurse Filling Out Transfusion VCHRISTIN 07/24/24 10:15 & Questions: Date: 07/24/24 07/24/24 10:15 Time: 10:17 07/24/24 10:15 Patient unable to answer at this time (ie. confused, unrespo /Reproduction History /Reproductive History - engineering scientist: /Reproductive Hx- engineering scientist Hx Now No 07/24/24 10:15 Gestational Age (in weeks): EDC: Hx Hx Para Hx Section SAB No 07/24/24 10:15 Active Medications Active Medications: Current Medications Generic Name Dose Route Start Last Admin Trade Name Freq PRN Reason Stop Dose Admin Enoxaparin Sodium 40 mg 07/31/24 11:00 07/31/24 09:51 Enoxaparin 40 Mg/0.4 Ml Syringe SC 07/31/24 11:01 40 mg PREOP ONE Administration PFSH Medical History Wears contact lenses Wears glasses Cancer Depression Anxiety Arthritis Migraine headache History of hiatal hernia Gastric reflux Non-smoker History of stress test History of echocardiogram Hypertension Diabetes Leg pain Anxiety and depression History of breast cancer Pulmonary embolism Home Medications ?Medication ?Instructions ?Recorded ?Last Taken ?Type multivitamin with folic acid 400 1 tab PO DAILY 02/17/14 07/30/24 History mcg tablet omeprazole 20 mg capsule,delayed 20 mg PO BID 02/17/14 07/30/24 History release dulaglutide 1.5 mg/0.5 mL 1.5 mg subcut QWEEK 06/22/22 07/18/24 History subcutaneous pen injector (Trulicity) metformin 500 mg tablet 500 mg PO BID 06/22/22 07/30/24 History ascorbate calcium (vitamin C) 500 500 mg PO DAILY 05/24/23 07/30/24 History mg tablet naproxen 500 mg tablet 500 mg PO BID PRN pain #30 tabs 11/25/23 Unknown Rx sucralfate 1 gram tablet (Carafate) 1 g PO BID 05/28/24 07/30/24 History bupropion HCl 150 mg tablet,12 hr 150 mg PO DAILY 07/24/24 07/30/24 History sustained-release calcium 250 mg (as 1 tab PO BID 07/24/24 07/30/24 History carbonate)-vitamin D3 3.125 mcg (125 unit) tablet hydrochlorothiazide 25 mg tablet 25 mg PO DAILY 07/24/24 07/30/24 History losartan 100 mg tablet 100 mg PO DAILY 07/24/24 07/30/24 History venlafaxine 150 mg 150 mg PO DAILY 07/24/24 07/30/24 History capsule,extended release 24 hr Allergy/AdvReac Type Severity Reaction Status Date / Time ketorolac tromethamine (From Allergy Hives Verified 07/31/24 09:42 Toradol) nitrofurantoin Allergy Hives Verified 07/31/24 09:42 Family History Mother A-fib CVA (cerebral vascular accident) Father A-fib Grandmother Breast cancer Surgical History Hx of bilateral breast reduction surgery History of bilateral breast reduction surgery Hx of tubal ligation History of lumpectomy History of mastectomy Social History number of children: 2 current occupational status: unemployed Smoking Status: Never smoker alcohol intake: never substance use type: does not use caffeine: Yes what type of physical activity do you participate in: walking seatbelt use: always do you feel safe at home: Yes 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
[2024-07-31 10:20] LABS: Bedside Glucose 115 mg/dL (74-106)
--- NOTE | 2024-07-31 11:00 | EMB_PTH ---
PATIENT: SILVIA MILLER LOC: [facility] [place] U#:[id number] AGE/SX: 49/F ROOM: RE07/31/[address]: Dr. Alejandra Wick MD : 1975 BED: DIS: 07/31/2024 SPEC #: [id number] RECD: 07/31/24 14:25 STATUS: MARV BREANNA #: [id number] KUSH: 07/31/24 11:[address]: Alejandra Wick DEPT: SURGICAL PATHOLOGY RECD BY: Ashley Abdul ENTERED: 08/01/24 09:19 SP TYPE: ENDOM BX/C MAGDALENA DR: Dr. Sukhdeep Muse MD Tissues: Endometrium, NOS Procedures: Surgery Specimen Level IV HEADER OPERATION: Hysterectomy, D&C PRE-OP DIAGNOSIS: Endouterine bleeding TISSUE SUBMITTED: Endometrial curettings MICROSCOPIC DIAGNOSIS Endometrial curettings: Proliferative endometrium. Fragments of benign endocervical mucosa. SJ.mr 08/02/2024 MICROSCOPIC DESCRIPTION Slides are reviewed. GROSS DESCRIPTION Received in fixative is one container labeled with the patient's name and designated Endometrial curettings. The specimen consists of multiple irregular fragments of brownish- carlton soft tissue mixed with blood clots that in aggregate measure 2.0 x 1.9 x 0.3 cm. The specimen is totally submitted in one cassette. FA. 08/01/2024 TC:4 CPT:62884
[2024-07-31] MEDS: Lidocaine 1% (20 ml mdv) 20 ML Vial (11:02)
--- NOTE | 2024-07-31 11:19 | PCM.HP.BLA ---
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: No Is patient in pain?: No Allergies ketorolac tromethamine (From Toradol) Allergy (Verified 06/22/24 10:09) Hivesnitrofurantoin Allergy (Verified 06/22/24 10:09) Hives Medications ?Medication ?Instructions ?Recorded ?Confirmed ?Type multivitamin with folic acid 400 1 tab PO DAILY 02/17/14 06/22/24 History mcg tablet omeprazole 20 mg capsule,delayed 20 mg PO DAILY 02/17/14 06/22/24 History release losartan 50 mg tablet 50 mg PO DAILY 12/18/17 06/22/24 History dulaglutide 1.5 mg/0.5 mL 1.5 mg subcut QWEEK 06/22/22 06/22/24 History subcutaneous pen injector (Trulicity) metformin 500 mg tablet 500 mg PO BID 06/22/22 06/22/24 History ascorbate calcium (vitamin C) 500 500 mg PO DAILY 05/24/23 06/22/24 History mg tablet bupropion HCl 75 mg tablet 75 mg PO TID 10/12/23 06/22/24 History naproxen 500 mg tablet 500 mg PO BID PRN pain #30 tabs 11/25/23 06/22/24 Rx fluoxetine 60 mg tablet 60 mg PO QDAY 05/28/24 06/22/24 History sucralfate 1 gram tablet (Carafate) 1 g PO BID 05/28/24 06/22/24 History PFSH Medical History Diabetes Leg pain Anxiety and depression History of breast cancer Pulmonary embolism Surgical History History of bilateral breast reduction surgery Hx of tubal ligation History of lumpectomy History of mastectomy Family History Mother A-fib CVA (cerebral vascular accident)Father A-fibGrandmother Breast cancer Social History (Updated 05/28/24 @ 13:05 by Darline Modi) number of children: 2 current occupational status: unemployed Smoking Status: Never smoker alcohol intake: never substance use type: does not use caffeine: Yes what type of physical activity do you participate in: walking seatbelt use: always do you feel safe at home: Yes 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 Patient has been intermittently having. She will go several months without bleeding and then she had several cycles this summer some heavier than others. Occasional cramping. This last cycle was very heavy and brought her to the emergency room. She did not have significant anemia. she is having breast reconstruction the end of this month. she is considering an ablation now for irregular bleeding. History 2 Elective abortions Hx Para 2 Spontaneous abortions Hx # Term Pregnancies Ectopic pregnancies Hx # Pregnancies Multiple births # of living children Past Pregnancies Del. Date Name GA/Weeks Outcome Route Bth Weight Gen [facility] Unknown 1999 [place] live - full term [facility] Dr. Arnold Unknown 2001 [place] live - full term [facility] Dr. Arnold ROS Const Constitutional: Denies fatigue, fever(s), headache(s), increased appetite, poor appetite, weight gain or weight loss : Reports as per HPI; Denies difficulty voiding, dysuria, urinary frequency, urinary incontinence, urinary hesitancy, urinary urgency, vaginal discharge, vaginal dryness, vaginal odor or vaginal pruritus Exam Const General: cooperative, healthy appearing, comfortable, no acute distress and well developed Nutritional Appearance: average body habitus Orientation: alert General: bladder normal to palpation External Female Exam: normal external appearance and normal appearance of the urethra Urethra: normal appearance of the urethra and normal palpation Speculum Exam - Vagina: normal appearance of the vagina and vaginal bleeding Speculum Exam - Cervix: normal appearance of the cervix and nontender Bimanual Exam- Vagina & Uterus: normal bimanual exam, uterine size normal, bladder normal to palpation, uterine shape normal, No tender, uterine mobility normal, consistency normal, normal palpation and non-tender Bimanual Exam- Adnexa, other: normal adnexae, adnexae mobile, no masses and normal Pelvic Support: normal OB/External & Speculum: vaginal bleeding Speculum Exam: vaginal bleeding Office Procedures Endometrial Biopsy Endometrial Biopsy Test: Yes declined Consent Signed: Yes Time out checklist: patient, procedure, site marked/identified, positioning of patient, supplies available, allergies confirmed and team agrees on procedure tenaculum used: No dilator used: No Details: Cervix prepped with betadine and pipelle inserted into uterus without complication. Specimen obtained and sent to lab for analysis. All instruments removed from vagina without complications. Excellent hemostasis noted. Coding Level of Care Code Off vis,est,level 4 Diagnoses Pulmonary embolism without acute cor pulmonale, unspecified chronicity, unspecified pulmonary embolism type I26.99 Pulmonary embolism type: unspecified Chronicity: unspecified Acute cor pulmonale presence: without acute cor pulmonale Climacteric N95.1 Dysmenorrhea N94.6 Vaginal bleeding N93.9 CPT Codes Endometrial Biopsy (91975) Assessment and Plan Assessment and Plan (1) Pulmonary embolism: Status: Acute Qualifiers: Pulmonary embolism type: unspecified Chronicity: unspecified Acute cor pulmonale presence: without acute cor pulmonale Qualified Code(s): I26.99 - Other pulmonary embolism without acute cor pulmonale Comment: in past while on hormones (2) Climacteric: Status: Acute Comment: discussed effexor. consider switching to this for antidepressant (3) Dysmenorrhea: Status: Acute (4) Vaginal bleeding: Status: Acute Comment: emb repeated, discussed options not a hormonal or lysteda candidate due to PE, history of breast CA. recommend de ablation. need to coordinate with plastic surgery, planned breast reconstruciton jul 08 in [place]. Orders: Orders Endometrial Biopsy 06/22/24 N93.9 - Abnormal uterine and vaginal bleeding, unspecified Plan After discussing the patient's diagnosis and treatment plan options, patient wishes to proceed with surgical management. I have discussed with the patient the risks, benefits, and alternatives of the procedure which include but are not limited to risks of anesthesia, bleeding, infection, possible damage to bowel, bladder, or surrounding vasculature which could lead to additional surgery to evaluate any complications. Patient agrees to procedure and wishes to proceed. ACOG/uptodate references given for additional information regarding procedure. UPDATE- I have seen the patient and performed any clinically relevant updates to the history and physical exam. Alejandra Wick MD
--- NOTE | 2024-07-31 12:07 | PCM.OPRPT ---
Problems Associated Problem List Diagnoses (1) Climacteric: (2) Pulmonary embolism: (3) Abnormal uterine bleeding: Operative Report (Standard) Operative Information Surgery/Procedure Performed: dilation and curettage hysteroscopy demi ablation Surgeon: Alejandra Wick Date of Procedure: 07/31/24 Procedure Start Time: 11:50 Procedure Stop Time: 11:59 Pre-Operative Diagnosis: see problem list Post-Operative Diagnosis: same Select all DRAINS/GRAFTS/IMPLANTS that apply: None Type of Anesthesia: IV Sedation and Local Estimated Blood Loss: 50 Specimen collected: Yes Description of specimen(s) removed: endometrial curettings Description of surgery: Patient was prepped and draped in a normal sterile fashion under MAC anesthesia. A weighted speculum was placed in the vagina and the anterior lip of the cervix was grasped with a single-tooth tenaculum. A paracervical block was placed with 1% lidocaine. Cervix was progressively dilated to allow passage of a 5 mm hysteroscope. The lining was fully visualized and noted to have normal lining with no abnormalities. Uterine sounded to 9.5 cm. Curettage was performed and tissue removed, sent to pathology. The Demi device was opened and the cavity length was found to be 5.5 cm. Device was inserted into the uterus and balloon inflated and device deployed. Integrity of the cavity was confirmed and a 2 minute treatment cycle was completed without complication. All instruments were removed from the vagina and excellent hemostasis was noted. Patient was awoken and taken to recovery in stable condition. 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
--- NOTE | 2024-07-31 12:15 | PCM.POST.ANE ---
Anesthesia: Postop Eval I Current Vital Signs Temperature: 97.5 F Pulse Rate: 91 Blood Pressure: 160/96 Respiratory Rate: 16 Pulse Ox: 96 Oxygen Delivery Method: Room Air Assessment Airway patent: Yes Spontaneous unlabored respirations: Yes Mental status: Awake nausea: No Vomiting: No Anesthesia Complication: No Fluid Hydration Crystalloid volume administer (ml): 30 Total IV fluid infused: 30 Progress Note Anesthesia document: Postop Eval 1 completed: Yes
--- NOTE | 2024-07-31 12:21 | DCINST_ITS ---
Discharge Instructions Diet Discharge Diet: No restrictions Activity Discharge Activity: Return to Normal Activity, May Shower and May Take a Tub Bath (after 1 week) May resume sexual activity in: 1-2 weeks Weight Bearing Status: Weight bearing as tolerated Lifting Restrictions: none Dressing / Incision Call your doctor if you observe: Fever of 101 or Higher, Using more than 1 pad per hour, Shortness of breath and Uncontrolled pain Follow Up Care Please Follow Up With: Alejandra Wick MD When: Call [phone] to schedule appointment. Test Results: Test results from this visit will be discussed in further detail at your follow- up appointment, if applicable. Discharge Plan Admission Attending Provider: Alejandra Wick Primary Care Provider: Sukhdeep Muse Instructions Print Language: Syriac Discharge Orders/Prescriptions Prescriptions: New enoxaparin [Lovenox] 40 mg/0.4 mL syringe 40 mg subcut DAILY 7 Days Qty: 2.8 0RF No Action metformin 500 mg tablet 500 mg PO BID Trulicity 1.5 mg/0.5 mL pen injector 1.5 mg subcut QWEEK ascorbate calcium (vitamin C) 500 mg tablet 500 mg PO DAILY naproxen 500 mg tablet 500 mg PO BID PRN (Reason: pain) Qty: 30 2RF Rx Instructions: administer with food or milk sucralfate [Carafate] 1 gram tablet 1 g PO BID omeprazole 20 MG capsule 20 mg PO BID Patient Comments: acid reflux multivitamin with folic acid 1 TABLET tablet 1 tab PO DAILY Patient Comments: supplement venlafaxine 150 mg capsule,extended release 24hr 150 mg PO DAILY bupropion HCl 150 mg tablet sustained-release 12 hr 150 mg PO DAILY hydrochlorothiazide 25 mg tablet 25 mg PO DAILY losartan 100 mg tablet 100 mg PO DAILY calcium carbonate-vitamin D3 250 mg-3.125 mcg (125 unit) tablet 1 tab PO BID Referrals / Follow Up: Sukhdeep Muse MD [Primary Care Provider] - Disposition Disposition (needs filled in before D/C Order can be placed): Home, Self Care
[2024-07-31] MEDS: HYDROcodone Bitartrate/Apap 5/325 Tablet PO (13:25)
--- NOTE | 2024-07-31 16:01 | POSTOPAN2_ITS ---
Anesthesia Postop Eval I Sum Postop Eval Completion status Anesthesia document: Postop Eval 1 completed: Yes Anesthesia Postop Eval I Summary Anesthesia Postop Eval I Summary: Anesthesia Postop Eval I: Assessment Summary Airway patent Yes 07/31/24 12:16 WAIVER [email or web address] Spontaneous unlabored Yes 07/31/24 12:16 WAIVER [email or web address] respirations Mental status Awake 07/31/24 12:16 [email or web address] [email or web address] nausea No 07/31/24 12:16 WAIVER [email or web address] Vomiting No 07/31/24 12:16 WAIVER [email or web address] Anesthesia Postop Eval I: Fluid Summary Crystalloid volume administer 30 07/31/24 12:16 WAIVER [email or web address] (ml) Colloids volume administered ( ml) Blood Product volume administered (ml) Total IV fluid infused 30 07/31/24 12:16 [email or web address] [email or web address] Anesthesia Postop Eval I: Summary Notes Anesthesia Complication No 07/31/24 12:16 WAIVER [email or web address] Anesthesia Complication Comment: Post-operative progress note Anesthesia: Postop Eval II Evaluation Mental status: Awake and Calm Pain Level: 1 nausea: No Vomiting: No Complications Anesthesia Complication: No
--- NOTE | 2024-07-31 16:01 | PCM.POSTANE2 ---
Anesthesia Postop Eval I Sum Postop Eval Completion status Anesthesia document: Postop Eval 1 completed: Yes Anesthesia Postop Eval I Summary Anesthesia Postop Eval I Summary: Anesthesia Postop Eval I: Assessment Summary Airway patent Yes 07/31/24 12:16 POWER GENERATION [email or web address] Spontaneous unlabored Yes 07/31/24 12:16 POWER GENERATION [email or web address].JDEF respirations Mental status Awake 07/31/24 12:16 POWER GENERATION [email or web address] nausea No 07/31/24 12:16 POWER GENERATION [email or web address].JDEF Vomiting No 07/31/24 12:16 POWER GENERATION [email or web address].JDEF Anesthesia Postop Eval I: Fluid Summary Crystalloid volume administer 30 07/31/24 12:16 POWER GENERATION [email or web address].JDEF (ml) Colloids volume administered ( ml) Blood Product volume administered (ml) Total IV fluid infused 30 07/31/24 12:16 POWER GENERATION [email or web address].JDEF Anesthesia Postop Eval I: Summary Notes Anesthesia Complication No 07/31/24 12:16 POWER GENERATION [email or web address] Anesthesia Complication Comment: Post-operative progress note Anesthesia: Postop Eval II Evaluation Mental status: Awake and Calm Pain Level: 1 nausea: No Vomiting: No Complications Anesthesia Complication: No
== END 2024-07-31 13:36 | disposition home or self-care (01) ==
LOC: SDC 09:30 → AC 09:32
PROVIDERS: PCP Family Medicine; Referring Provider Obstetrics & Gynecology; Visit Provider Obstetrics & Gynecology
PROC: 0U5B8ZZ Destruction of Endometrium, Via Natural or Artificial Opening Endoscopic (ICD-10-PCS; CPT 58558; principal; 2024-07-31 10:45)
DX: N93.9 Abnormal uterine and vaginal bleeding, unspecified (principal); E11.9 Type 2 diabetes mellitus without complications; N94.6 Dysmenorrhea, unspecified; F41.9 Anxiety disorder, unspecified; F32.A Depression, unspecified; Z79.84 Long term (current) use of oral hypoglycemic drugs; Z79.899 Other long term (current) drug therapy; Z86.711 Personal history of pulmonary embolism
CPT/HCPCS: 58558; 00952; 81025; 82962; 85027; 86850; 86900; 86901; 88305; A4216; J2405

== ENCOUNTER 2025-01-05 08:07 | Emergency (ER) | payer MEDICAID, SELFPAY ==
[2025-01-05 08:07] VITALS: BP 165/101; PULSE 96; RESP 16; TEMP 36.6; O2SAT 99; BMI 44.9
--- NOTE | 2025-01-05 08:29 | RAD_ITS ---
EXAM: XR Right Shoulder Complete, 2 or More Views CLINICAL INDICATION: PAIN TECHNIQUE: Two or more views of the right shoulder. COMPARISON: No relevant prior studies available. FINDINGS: BONES/JOINTS: Mild degenerative changes of the acromioclavicular and glenohumeral joints. No acute fracture. No dislocation. SOFT TISSUES: Unremarkable. RAD/Shoulder min 2 Views IMPRESSION: 1. Degenerative changes as above. 2. If symptoms persist, further evaluation with MRI is recommended. Reading Location: [id number]
[2025-01-05] MEDS: oxyCODONE 5 MG Tablet PO (08:42)
[2025-01-05] MEDS: 0.9% Normal Saline (1000mL) 1,000 ML 1000 ML IV (08:43)
[2025-01-05 08:57] LABS: Bacteria 0 SEEN /hpf (None Seen); Mucous, Urine 0 SEEN /hpf (<or=2+); Red Blood Cells-Urine 0 SEEN /hpf (0-5)
--- NOTE | 2025-01-05 09:11 | EX.ED.UPPERE ---
HPI History of Present Illness Chief Complaint: Upper Extremity Injury Informant: patient Narrative Narrative: Patient is a 49-year-old female with history of breast cancer, PE (not on any anticoagulation), diabetes (on metformin and Trulicity and states her last A1c was 5.4) as well as hypertension presenting with right shoulder/arm pain as well as concern for dehydration. Patient states about 10 days ago she was lifting a heavy microwave and had a lifted 3 times. After that she started having pain in her right shoulder and upper arm. She is right-hand dominant. She tried a baby had not been taking Advil but over the last 24 hours the pain is worsened. She states that she did not sleep last night because the pain was so bad. She last had 2 doses of Advil at 4 AM. 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 Denies any acute weakness of her arm. States the pain is worse with movement. In addition she states she has been feeling dehydrated since yesterday. She is worried about this and would like this to be evaluated as well. She denies any lightheadedness or dizziness. Denies any chest pain or shortness of breath. Does report some mild swelling of her right arm. Denies any significant trauma or new activities that could have exacerbated over the last few days. No other complaints or concerns reported at this time. [facility] Medical History Wears contact lenses Wears glasses Cancer Depression Anxiety Arthritis Migraine headache History of hiatal hernia Gastric reflux Non-smoker History of stress test History of echocardiogram Hypertension Diabetes Leg pain Anxiety and depression History of breast cancer Pulmonary embolism Home Medications ?Medication ?Instructions ?Recorded ?Last Taken ?Type multivitamin with folic acid 400 1 tab PO DAILY 02/17/14 01/05/25 History mcg tablet omeprazole 20 mg capsule,delayed 20 mg PO BID 02/17/14 01/05/25 History release dulaglutide 1.5 mg/0.5 mL 1.5 mg subcut QWEEK 06/22/22 01/02/25 History subcutaneous pen injector (Trulicity) metformin 500 mg tablet 500 mg PO BID 06/22/22 01/05/25 History ascorbate calcium (vitamin C) 500 500 mg PO DAILY 05/24/23 01/05/25 History mg tablet naproxen 500 mg tablet 500 mg PO BID PRN pain #30 tabs 11/25/23 Unknown Rx sucralfate 1 gram tablet (Carafate) 1 g PO BID 05/28/24 01/05/25 History bupropion HCl 150 mg tablet,12 hr 150 mg PO DAILY 07/24/24 01/05/25 History sustained-release calcium 250 mg (as 1 tab PO BID 07/24/24 01/05/25 History carbonate)-vitamin D3 3.125 mcg (125 unit) tablet hydrochlorothiazide 25 mg tablet 25 mg PO DAILY 07/24/24 01/05/25 History losartan 100 mg tablet 100 mg PO DAILY 07/24/24 01/05/25 History venlafaxine 150 mg 150 mg PO DAILY 07/24/24 01/05/25 History capsule,extended release 24 hr oxycodone 5 mg tablet 5 mg PO Q12H PRN pain 2 days #4 01/05/25 Unknown Rx tabs prednisone 20 mg tablet 40 mg (2 x 20 mg) PO DAILY #10 tabs 01/05/25 Unknown Rx Allergy/AdvReac Type Severity Reaction Status Date / Time ketorolac tromethamine (From Allergy Hives Verified 01/05/25 08:14 Toradol) nitrofurantoin Allergy Hives Verified 01/05/25 08:14 Family History Mother A-fib CVA (cerebral vascular accident) Father A-fib Grandmother Breast cancer Surgical History S/P endometrial ablation Hx of bilateral breast reduction surgery History of bilateral breast reduction surgery Hx of tubal ligation History of lumpectomy History of mastectomy Social History number of children: 2 current occupational status: unemployed Smoking Status: Never smoker alcohol intake: never substance use type: does not use caffeine: Yes what type of physical activity do you participate in: walking seatbelt use: always do you feel safe at home: Yes 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 ROS ROS ED Constitutional Constitutional ED: Reports other Details: Feels dehydrated ; Denies chills or fever(s) Cardiovascular Cardiovascular: Denies chest pain Respiratory/Chest Respiratory/Chest: Denies cough or dyspnea Gastrointestinal Gastrointestinal: Denies nausea or vomiting Genitourinary Genitourinary ED: Denies dysuria Musculoskeletal Musculoskeletal: Reports other Details: Right arm pain Integumentary Denies rash Neurologic Neurologic: Reports paresthesias RUE (Chronic associated with radiation); Denies weakness Hematologic/Lymphatic Hematologic/Lymphatic: Denies easy bleeding or easy bruising EXAM Physical Exam Const Vital Signs: 01/05/25 08:07 Temperature 97.8 F Temperature Source Oral Pulse Rate 96 Respiratory Rate 16 Blood Pressure 165/101 H Blood Pressure Mean 122 Pulse Ox 99 Oxygen Delivery Method Room Air Positive well nourished and well developed General Appearance ED: well developed and NAD HEENT HEENT Narrative: Mildly dry mucosal membranes normocephalic and atraumatic Eyes PERRL Neck full ROM General: Negative for tenderness Chest Wall inspection of chest normal and palpation of chest normal Resp normal respiratory effort and clear to auscultation bilaterally Cardio regular rate and regular rhythm Cardio Narrative: 2+ radial pulses present Extremity Extremity Narrative: Right upper extremity?tenderness to palpation diffusely over the shoulder but most pronounced over the anterior aspect of the bicipital groove. Pain with palpation along the length of the bicep muscle. No obvious bulge present. Increased pain with attempts of elevating her arm outstretched in front of her as well as abduction of the arm. Pain is worse with active range of motion compared to passive range of motion. Preserved strength but reproduce no pain with flexion and extension of the bicep muscle. Limited pain with palpation of the deltoid. There is mild nonpitting edema of the right upper extremity compared to the left. Compartments are soft. No associated skin changes. Preserved movement of the hand including making okay sign, crossing fingers, abducting and abducting the fingers as well as making a fist Neuro oriented x3, moves all extremities, no focal motor deficits and no sensory deficits noted Sensorium / Orientation: alert Psych mental status grossly normal Skin Lesions: no lesions Rashes: no rashes MDM MDM MDM Narrative Medical decision making narrative: Patient evaluated for right shoulder pain after some repetitive motion about 10 days ago. In addition she is concerned for dehydration. Patient is a mildly dry mucosal membranes. Vital signs significant for mild hypertension. She has good distal pulses. Differential includes bicep tendinitis, rotator cuff injury, osteoarthritis of the shoulder. She does not have short arc range of motion pain and low suspicion for septic joint. She does not have any bulging or abnormality of the bicep muscle suspicion for tendon rupture. Will check a BMP to ensure the patient is not have an MANNY or significant hyperglycemia as she is concern for dehydration. Is given a bolus of IV fluids. On repeat evaluation patient feels improved. Shoulder x-ray viewed by myself as well as radiology does not show any acute process but does show degenerative changes. No fracture or dislocation. Patient will be treated with a course of steroids if she is not improved with NSAIDs as she could have an associated tendinitis. Will place in a sling. Given a short course of oxycodone for pain control. Given return precautions. Given referral for orthopedics with counseled she could likely follow-up with her primary care doctor. Discharged home in stable and improved condition. Is given a sling. Is counseled on the importance of performing range of motion exercises (small circles/little circles) to prevent frozen shoulder. Lab Data Attestation: I reviewed the patient's lab results. Labs: Clinical Impression(s) from Imaging Studies Shoulder X-Ray 01/05/25 08:29 IMPRESSION: 1. Degenerative changes as above. 2. If symptoms persist, further evaluation with MRI is recommended. Reading Location: [facility] Laboratory Data 01/05/25 01/05/25 08:47 08:50 Sodium 138 Potassium 4.0 Chloride 98 Carbon Dioxide 26.9 Anion Gap 12 BUN 15 Creatinine 0.76 Estim Creat Clear Calc 124.45 Est GFR (MDRD) Non-Af 97 BUN/Creatinine Ratio 19.5 Glucose 112 H Calcium 9.6 Urine Color Yellow Urine Clarity Clear Urine pH 6.0 Ur Specific [place] 1.020 Urine Protein 30 H Urine Glucose (UA) Normal Urine Ketones Negative Urine Occult Blood Negative Urine Nitrite Negative Urine Bilirubin Negative Urine Urobilinogen Normal Ur Leukocyte Esterase Negative Urine RBC 0 SEEN Urine WBC 0-5 SEEN Ur Squamous Epith Cells 0-5 SEEN Urine Bacteria 0 SEEN Urine Mucus 0 SEEN Radiography Diagnostic Testing: Clinical Impression(s) from Imaging Studies Shoulder X-Ray 01/05/25 08:29 IMPRESSION: 1. Degenerative changes as above. 2. If symptoms persist, further evaluation with MRI is recommended. Reading Location: [facility] Discharge Plan Triage Chief Complaint: Upper Extremity Injury ED Provider: Ashwini Hernandez Dx/Rx/DC Orders Clinical Impression: Acute pain of right shoulder, Biceps tendinitis of right shoulder Instructions: ED Tendonitis, ED Shoulder Pain, Uncertain Cause Prescriptions: New prednisone 20 mg tablet 40 mg PO DAILY Qty: 10 0RF oxycodone 5 mg tablet 5 mg PO Q12H PRN (Reason: pain) 2 Days Qty: 4 0RF No Action metformin 500 mg tablet 500 mg PO BID Trulicity 1.5 mg/0.5 mL pen injector 1.5 mg subcut QWEEK ascorbate calcium (vitamin C) 500 mg tablet 500 mg PO DAILY naproxen 500 mg tablet 500 mg PO BID PRN (Reason: pain) Qty: 30 2RF Rx Instructions: administer with food or milk sucralfate [Carafate] 1 gram tablet 1 g PO BID omeprazole 20 MG capsule 20 mg PO BID Patient Comments: acid reflux multivitamin with folic acid 1 TABLET tablet 1 tab PO DAILY Patient Comments: supplement venlafaxine 150 mg capsule,extended release 24hr 150 mg PO DAILY bupropion HCl 150 mg tablet sustained-release 12 hr 150 mg PO DAILY hydrochlorothiazide 25 mg tablet 25 mg PO DAILY losartan 100 mg tablet 100 mg PO DAILY calcium carbonate-vitamin D3 250 mg-3.125 mcg (125 unit) tablet 1 tab PO BID Primary Care Provider: Sukhdeep Muse Referrals: Heriberto Ortiz MD [Med Staff - Active Staff] - Sukhdeep Muse MD [Primary Care Provider] - Activity Restrictions/Additional Instructions: Take Tylenol as needed for pain. You been prescribed a short course of steroids as well as pain medicine. Your blood sugar likely will increase well to steroids please keep an eye on this and follow-up with your primary care doctor as needed. Make sure drink plenty of fluids and adhering to diabetic diet in the meantime. Perform range of motion exercises of your shoulder while wearing the sling (big circles a little circles) as we discussed to prevent frozen shoulder. Follow-up with your primary care doctor for your shoulder. I suspect you have a tendinitis of your shoulder but it is possible you could have a rotator cuff injury as well. Print Language: Dutch Disposition Disposition: Home, Self Care
[2025-01-05 09:13] LABS: Color, Urine Yellow (Yellow); Glucose, Dipstick Normal (Normal); Ketone-Dipstick Negative (Negative); Leukocyte Esterase-Dipstick Negative /ul (Negative); Nitrite-Dipstick Negative (Negative); Occult Blood-Urine Negative /ul (Negative); Protein-Dipstick 30 mg/dl (Negative); Urine Bilirubin Dipstick Negative (Negative); Urine Clarity Clear (Clear); Urine Urobilinogen Normal (Normal)
[2025-01-05 09:29] LABS: Anion Gap 12 (5-15); BUN 15 mg/dL (4-19); BUN/Creat Ratio 19.5 RATIO (10-20); Calcium,Total 9.6 mg/dL (7.6-11.0); Carbon Dioxide 26.9 mmol/L (21.0-32.0); Chloride 98 mmol/L (98-108); Creatinine, Serum 0.76 mg/dL (0.70-1.20); EST Glomerular Filtration Rate 97 (>60); Estimated Creatinine Clearance 124.45 ml/min (50-250); Glucose 112 mg/dL (70-99); Sodium Level 138 mmol/L (133-145)
[2025-01-05 09:30] LABS: Squamous Epithelial Cells - UA 0-5 SEEN /hpf (5-10); White Blood Cells 0-5 SEEN /hpf (0-5)
[2025-01-05 10:56] VITALS: BP 125/72; PULSE 81; RESP 16; TEMP 36.3; O2SAT 99
== END 2025-01-05 11:01 | disposition home or self-care (01) ==
PROVIDERS: Emergency Provider Emergency Medicine; PCP Family Medicine; Visit Provider Emergency Medicine
DX: M25.511 Pain in right shoulder (principal); E11.9 Type 2 diabetes mellitus without complications; I10 Essential (primary) hypertension; Z79.84 Long term (current) use of oral hypoglycemic drugs; M75.21 Bicipital tendinitis, right shoulder; Z79.85 Long-term (current) use of injectable non-insulin antidiabetic drugs; K21.9 Gastro-esophageal reflux disease without esophagitis; Z79.899 Other long term (current) drug therapy; F41.9 Anxiety disorder, unspecified; F32.A Depression, unspecified; R20.2 Paresthesia of skin; X50.0XXA Overexertion from strenuous movement or load, initial encounter
CPT/HCPCS: 73030; 80048; 81001; 96360; 99284; A4216

== ENCOUNTER 2025-02-06 14:39 | Observation (INO) | payer MEDICAID, SELFPAY ==
[2025-02-06] VITALS (12 sets, daily range): BP systolic 132–177; BP diastolic 86–114; PULSE 98–119; RESP 16–24; TEMP 36.4–36.9; O2SAT 94–98; BMI 45.1; BMI 44.7
--- NOTE | 2025-02-06 14:57 | RAD_ITS ---
EXAM: XR Chest, 2 Views CLINICAL INDICATION: CHEST PAIN TECHNIQUE: Frontal and lateral views of the chest. COMPARISON: No relevant prior studies available. FINDINGS: LUNGS AND PLEURAL SPACES: Unremarkable. No consolidation. No pneumothorax. HEART: Unremarkable. No cardiomegaly. MEDIASTINUM: Unremarkable. Normal mediastinal contour. BONES/JOINTS: Unremarkable. No acute fracture. RAD/Chest PA and Lateral IMPRESSION: No acute cardiopulmonary process. Reading Location: [facility]
--- NOTE | 2025-02-06 14:57 | EKG12_ITS ---
Test Reason : SOB Blood Pressure : */* mmHG Vent. Rate : 99 BPM Atrial Rate : 99 BPM P-R Int : 144 ms QRS Dur : 92 ms QT Int : 372 ms P-R-T Axes : 34 0 47 degrees QTcB Int : 477 ms Poor data quality, interpretation may be adversely affected Normal sinus rhythm Normal ECG Confirmed by ANGEL RODRIGUEZ ([id number]), associate entertainment editor BRANDIN VIEIRA ([id number]) on 02/11/2025 7:29:20 AM Referred By: Confirmed By: ANGEL RODRIGUEZ
--- NOTE | 2025-02-06 14:59 | EX.ED.UPPERE ---
HPI History of Present Illness Chief Complaint: Upper Extremity Injury Detail of Chief Complaint: Patient presented because of right upper extremity pain per triage. HPI na Informant: patient Occured/Mechanism Comment: Patient having exertional dyspnea, chest pressure and right arm discomfort Onset/Context/Timing Onset: Days (Symptoms started 2 days ago) Context: Sudden Onset Timing: Intermittent Quality of Pain: - (The right upper extremity is achy and has chest pressure) Location: Right medial and right arm Current Severity: Gone Maximum Severity: Moderate Worsened by: Activity, walking up an incline Relieved by: 5 to 10 minutes after resting Associated Symptoms Associated Symptoms: Negative for Parasthesia, Weakness or Loss of Funtion Narrative Narrative: Patient is a 49-year-old woman. She has history of hypertension since 2011, type 2 diabetes for the past 3 years who presents with right arm pain per triage. Patient concern is that she has had shortness of breath with activity for the past 2 days. She does experience chest pressure with the activity. The chest pressure resolves after she rest. Takes approximately 10 minutes to resolve. She does report pain radiating to her right upper extremity and through to her back. Her past history is also remarkable for DVT and PE. She is present on no anticoagulant. She has no known history of coronary artery disease. There is no record of stress test. Patient denies orthopnea or PND. Patient denies leg pain, swelling discoloration. She denies nausea, vomiting or diarrhea. She denies abdominal pain. She denies pleuritic chest pain. Patient has allergy to ketorolac. She has taken aspirin in the past with no reaction. Prior similar symptoms: No Recent Illness/Hospitalization: No PFSH PFS Medical History Wears contact lenses Wears glasses Cancer Depression Anxiety Arthritis Migraine headache History of hiatal hernia Gastric reflux Non-smoker History of stress test History of echocardiogram Hypertension Diabetes Leg pain Anxiety and depression History of breast cancer Pulmonary embolism Home Medications ?Medication ?Instructions ?Recorded ?Last Taken ?Type multivitamin with folic acid 400 1 tab PO DAILY 02/17/14 01/05/25 History mcg tablet omeprazole 20 mg capsule,delayed 20 mg PO BID 02/17/14 01/05/25 History release dulaglutide 1.5 mg/0.5 mL 1.5 mg subcut QWEEK 06/22/22 01/02/25 History subcutaneous pen injector (Trulicity) metformin 500 mg tablet 500 mg PO BID 06/22/22 01/05/25 History ascorbate calcium (vitamin C) 500 500 mg PO DAILY 05/24/23 01/05/25 History mg tablet naproxen 500 mg tablet 500 mg PO BID PRN pain #30 tabs 11/25/23 Unknown Rx sucralfate 1 gram tablet (Carafate) 1 g PO BID 05/28/24 01/05/25 History bupropion HCl 150 mg tablet,12 hr 150 mg PO DAILY 07/24/24 01/05/25 History sustained-release calcium 250 mg (as 1 tab PO BID 07/24/24 01/05/25 History carbonate)-vitamin D3 3.125 mcg (125 unit) tablet hydrochlorothiazide 25 mg tablet 25 mg PO DAILY 07/24/24 01/05/25 History losartan 100 mg tablet 100 mg PO DAILY 07/24/24 01/05/25 History venlafaxine 150 mg 150 mg PO DAILY 07/24/24 01/05/25 History capsule,extended release 24 hr oxycodone 5 mg tablet 5 mg PO Q12H PRN pain 2 days #4 01/05/25 Unknown Rx tabs prednisone 20 mg tablet 40 mg (2 x 20 mg) PO DAILY #10 tabs 01/05/25 Unknown Rx Allergy/AdvReac Type Severity Reaction Status Date / Time ketorolac tromethamine (From Allergy Hives Verified 02/06/25 14:40 Toradol) nitrofurantoin Allergy Hives Verified 02/06/25 14:40 Family History Mother A-fib CVA (cerebral vascular accident) Father A-fib Grandmother Breast cancer Surgical History S/P endometrial ablation Hx of bilateral breast reduction surgery History of bilateral breast reduction surgery Hx of tubal ligation History of lumpectomy History of mastectomy Social History number of children: 2 current occupational status: unemployed Smoking Status: Never smoker alcohol intake: never substance use type: does not use caffeine: Yes what type of physical activity do you participate in: walking seatbelt use: always do you feel safe at home: Yes 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 [facility] ED Constitutional Constitutional ED: Denies chills, fever(s), subjective or sweats Eyes Eyes: Denies blurry vision or change in vision ENT ENT ED: Denies ear pain, rhinorrhea or sore throat Cardiovascular Cardiovascular: Reports chest pain; Denies orthopnea, palpitations, paroxysmal nocturnal dyspnea or racing heartbeat Respiratory/Chest Respiratory/Chest: Reports dyspnea and dyspnea on exertion; Denies cough, orthopnea, paroxysmal nocturnal dyspnea or sputum Gastrointestinal Gastrointestinal: Denies abdominal pain, diarrhea, melena or vomiting Genitourinary Genitourinary ED: Denies dysuria, hematuria or urinary frequency Musculoskeletal Musculoskeletal: Reports back pain; Denies neck pain Integumentary Denies rash Neurologic Neurologic: Denies paresthesias or weakness Endocrine Endocrinology: Denies cold intolerance or heat intolerance Hematologic/Lymphatic Hematologic/Lymphatic: Denies easy bleeding or easy bruising EXAM Physical Exam Const Vital Signs: 02/06/25 14:40 02/06/25 14:52 Temperature 97.6 F L Temperature Source Oral Pulse Rate 119 H Respiratory Rate 20 H Respiratory Effort Short of Breath Blood Pressure 177/114 H Blood Pressure Mean 135 Pulse Ox 97 Oxygen Delivery Method Room Air Positive well nourished and well developed Constitutional Narrative: BMI is 45.1. Vital signs remarkable for tachycardia and hypertension. Patient does have a history of hypertension. General Appearance ED: well developed and NAD; Negative for cyanotic or diaphoretic HEENT Reports moist mucous membranes normocephalic and atraumatic Eyes PERRL and EOMs intact bilaterally Eyes Narrative: Conjunctive is pink. Neck full ROM and supple Neck Narrative: There are no carotid bruits noted. Resp normal respiratory effort and clear to auscultation bilaterally Cardio regular rhythm, S1 normal heart sound, S2 normal heart sound and no murmurs Rate: tachycardic GI non-tender, non-distended and no masses Auscultation: normoactive bowel sounds Palpation: soft Extremity normal to inspection and full ROM Extremity Narrative: There is no asymmetry, swelling, discoloration, leg vein distention, palpable cords or tenderness along the distribution of the deep venous system. Neuro oriented x3 and CN's II-XII intact bilaterally Sensorium / Orientation: alert Psych Mood & Affect: depressed Skin Skin Narrative: Patient has some redness to both right and left upper extremity. Blanches. There is no hives. MDM MDM MDM Narrative Medical decision making narrative: Patient presents with dyspnea with activity and chest pressure with activity. This resolves with rest. Patient was concerned she may have a PE because she has had a prior history of PE and DVT. With pain radiating to the right arm/extremity observation was 3-1 this was cardiac. Patient is not PERC negative. Differential diagnosis is exertional angina, noncardiac would be PE. Also need to consider GI etiology. Other pulmonary etiology would be pneumonia. This is unlikely. History & Record Review Additional record(s) reviewed:: Prior outpatient record (H&P by Dr. Alejandra Wick for abnormal vaginal bleeding July 2024.) and Prior ED visit (Patient was seen December [address] Hernandez. She had right shoulder pain. Images were obtained and were negative.) Lab Data Attestation: I reviewed the patient's lab results. Lab results narrative: First troponin and 2-hour troponin are both less than 6. CBC is normal. Basic metabolic panel is unremarkable. Glucose is slightly elevated. Will discuss case with Radiography Chest X-Ray - ED: 2 View, Read by ED Physician, Unchanged, Normal, Heart, Mediastinum, Bony Structures, No Acute Disease and Chronic Changes EKG Initial EKG: Attestation: I personally reviewed and interpreted this EKG as follows: Interpretation: Sinus Rhythm (Rate is 99. ND interval is 144 ms. Cures duration 92 ms. QT durations 172 ms. [place] is normal. There is some nonspecific ST-T wave changes. There is no evidence of ST elevation VT.) Management Discussion w/another healthcare provider: Hospitalist (The night hospitalist Dr. Cristopher Romero was paged.) and Dressing Room Attendant (Spoke with cardiology. Dr. Jennings is on. He requested CTA in light of patient's history. CTA was performed and reveals no obvious pulmonary embolus. Therefore plan is observation for cardiac workup. Patient did receive aspirin in the emergency department.) Discharge Plan Dx/Rx/DC Orders Clinical Impression: Chest pain, exertional, Diabetes, Dyspnea on exertion, History of chronic hypertension Disposition Disposition: Acute Care Hospital [facility]
[2025-02-06 15:34] LABS: Absolute Lymphocyte Count 3.25 X10^3/uL (0.83-4.51); Absolute Neutrophil Count 4.2 X10^3/uL (2.0-7.7); Basophil# 0.06 X10^3/uL; Basophil% 0.7 % (0-1); Eosinophil# 0.15 X10^3/uL; Eosinophils% 1.8 % (0-5); Hematocrit 42.2 % (37-47); Hemoglobin 14.2 g/dL (12.0-15.0); Lymphocyte # 3.25 X10^3/ul (0.83-4.51); Lymphocyte % 39.4 % (19-41); Mean Corp Hgb Conc 33.6 g/dL (32-36); Mean Corpuscular Volume 86.3 fL (81-99); Mean Platelet Vol. 9.7 fl (6.2-12.0); Monocyte% 7.3 % (0-10); NRBC Flagged by Analyzer 0 % (0-5); Neutrophil # 4.15 X10^3/uL (2.7-7.7); Neutrophil % 50.3 % (47-70); Platelet Count 331 K/mm3 (150-450); RBC Distribution Width CV 13.7 % (11.6-14.6); RBC Distribution Width SD 42.9 fl (35.1-43.9); Red Blood Count 4.89 M/mm3 (4.2-5.4); White Blood Count 8.3 K/mm3 (4.4-11.0)
[2025-02-06] MEDS: Aspirin 81 MG TAB.CHEW 324 MG PO (15:37)
[2025-02-06 16:12] LABS: Anion Gap 14 (5-15); BUN 9 mg/dL (4-19); Calcium,Total 9.7 mg/dL (7.6-11.0); Chloride 102 mmol/L (98-108); Creatinine, Serum 0.69 mg/dL (0.70-1.20); EST Glomerular Filtration Rate 108 (>60); Estimated Creatinine Clearance 137.25 ml/min (50-250); Glucose 111 mg/dL (70-99); Potassium 3.5 mmol/L (3.3-5.1); Sodium Level 138 mmol/L (133-145); Troponin T High Sensitivity < 6 ng/L (<=14)
[2025-02-06 17:49] LABS: Troponin T High Sens 2 HR < 6 ng/L (<=14)
--- NOTE | 2025-02-06 18:17 | CT_ITS ---
PROCEDURE: CTA CHEST W/WO CONTRAST 02/06/2025 REASON FOR EXAM: DYSPNEA WITH EXERTION, HISTORY OF PE TECHNIQUE: CTA axial imaging of the chest with intravenous contrast. Multiplanar and multisequence images were obtained. 3D post processing was performed PATIENT PREPARATION: Per protocol CONTRAST: Isovue 370 VOLUME: 98 mL Not Provided Gauge IV One or more dose reduction techniques were used (e.g., Automated exposure control, adjustment of the mA and/or kV according to patient size, use of iterative reconstruction technique). RADIATION DOSE SUMMARY: CTDlvol: 32 mGy DLP: 564 mGycm . COMPARISON: None FINDINGS: Hardware: None Lymph nodes: No lymphadenopathy. Heart: Heart size is normal. No pericardial effusion. RV/LV Diameter Ratio: Thoracic Aorta: No thoracic aortic aneurysm or dissection. Pulmonary Vessels: No large central pulmonary emboli are identified. Contrast timing is suboptimal for evaluation of more distal branches. Most Proximal Level of Embolus (if embolus present): Lungs and Airways: The lungs are normally expanded and clear. Pleura: No pleural effusion. No pneumothorax. Upper Abdomen: Visualized portions of the upper abdominal viscera are unremarkable. Bones: Bone windows are unremarkable. CT/CTA Chest W/WO Contrast IMPRESSION: LIMITED. NO LARGE CENTRAL PULMONARY EMBOLI. Reading Location: [facility]
[2025-02-06 18:34] LABS: D-Dimer Quantitative (DVT/PE) < 0.27 FEU/ug/m (0.27-0.49)
[2025-02-06 20:14] LABS: Troponin T High Sens 4 HR < 6 ng/L (<=14)
--- NOTE | 2025-02-06 20:22 | HP.PCM.HOS_ITS ---
HPI - General General Date of Admission: 02/06/25 HPI Narrative SILVIA MILLER, is a 49 F who presents to the hospital with chest pain/pressure that started about 2 days ago. She noticed it more with activity and that it would resolve with rest. She was concerned because it felt like her previous PE that she had in 2013. That 1 was provoked while being on a control pill and driving in [place]. She is no longer on anticoagulation. D-dimer was negative and a CTA was still obtained which was also negative for a large PE. Initial troponins were unremarkable, all 3 were less than 6 however she is fairly anxious about her chest pain and would like to stay overnight. Will plan for a stress test in the morning. She does state that the pain radiates down her right arm. [facility] Medical History Wears contact lenses Wears glasses Cancer Depression Anxiety Arthritis Migraine headache History of hiatal hernia Gastric reflux Non-smoker History of stress test History of echocardiogram Hypertension Diabetes Leg pain Anxiety and depression History of breast cancer Pulmonary embolism Home Medications ?Medication ?Instructions ?Recorded ?Last Taken ?Type multivitamin with folic acid 400 1 tab PO DAILY 01/05/25 History mcg tablet omeprazole 20 mg capsule,delayed 20 mg PO BID 02/17/14 01/05/25 History release metformin 500 mg tablet 500 mg PO BID 06/22/2201/05 History ascorbate calcium (vitamin C) 500 500 mg PO DAILY 05/1301/05/25 History mg tablet sucralfate 1 gram tablet (Carafate) 1 g PO BID 4 01/05/25 History bupropion HCl 150 mg tablet,12 hr 150 mg PO DAILY 07/1301/05/25 History sustained-release calcium 250 mg (as 1 tab PO BID 07/24/24 History carbonate)-vitamin D3 3.125 mcg (125 unit) tablet hydrochlorothiazide 25 mg tablet 25 mg PO DAILY 01/05/25 History losartan 100 mg tablet 100 mg PO DAILY 07/24/24 History venlafaxine 150 mg 150 mg PO DAILY 07/24/24 History capsule,extended release 24 hr dulaglutide 0.75 mg/0.5 mL 0.75 mg subcut QWEEK 02/02/25 History subcutaneous pen injector (Trulicity) metformin 500 mg tablet,extended 500 mg PO BID 5 Unknown History release 24 hr Allergy/AdvReac Type Severity Reaction Status Date / Time ketorolac tromethamine (From Allergy Hives Verified 02/06/25 14:40 Toradol) nitrofurantoin Allergy Hives Verified 02/06/25 14:40 Family History Mother A-fib CVA (cerebral vascular accident) Father A-fib Grandmother Breast cancer Surgical History S/P endometrial ablation Hx of bilateral breast reduction surgery History of bilateral breast reduction surgery Hx of tubal ligation History of lumpectomy History of mastectomy Social History number of children: 2 current occupational status: unemployed Smoking Status: Never smoker alcohol intake: never substance use type: does not use caffeine: Yes what type of physical activity do you participate in: walking seatbelt use: always do you feel safe at home: Yes 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
--- NOTE | 2025-02-06 20:22 | PCM.HP.STD ---
HPI - General General Date of Admission: 02/06/25 HPI Narrative SILVIA MILLER, is a 49 F who presents to the hospital with chest pain/pressure that started about 2 days ago. She noticed it more with activity and that it would resolve with rest. She was concerned because it felt like her previous PE that she had in 2013. That 1 was provoked while being on a control pill and driving in [place]. She is no longer on anticoagulation. D-dimer was negative and a CTA was still obtained which was also negative for a large PE. Initial troponins were unremarkable, all 3 were less than 6 however she is fairly anxious about her chest pain and would like to stay overnight. Will plan for a stress test in the morning. She does state that the pain radiates down her right arm. [facility] Medical History Wears contact lenses Wears glasses Cancer Depression Anxiety Arthritis Migraine headache History of hiatal hernia Gastric reflux Non-smoker History of stress test History of echocardiogram Hypertension Diabetes Leg pain Anxiety and depression History of breast cancer Pulmonary embolism Home Medications ?Medication ?Instructions ?Recorded ?Last Taken ?Type multivitamin with folic acid 400 1 tab PO DAILY 02/17/14 01/05/25 History mcg tablet omeprazole 20 mg capsule,delayed 20 mg PO BID 02/17/14 01/05/25 History release metformin 500 mg tablet 500 mg PO BID 06/22/22 01/05/25 History ascorbate calcium (vitamin C) 500 500 mg PO DAILY 05/24/23 01/05/25 History mg tablet sucralfate 1 gram tablet (Carafate) 1 g PO BID 05/28/24 01/05/25 History bupropion HCl 150 mg tablet,12 hr 150 mg PO DAILY 07/24/24 01/05/25 History sustained-release calcium 250 mg (as 1 tab PO BID 07/24/24 01/05/25 History carbonate)-vitamin D3 3.125 mcg (125 unit) tablet hydrochlorothiazide 25 mg tablet 25 mg PO DAILY 07/24/24 01/05/25 History losartan 100 mg tablet 100 mg PO DAILY 07/24/24 01/05/25 History venlafaxine 150 mg 150 mg PO DAILY 07/24/24 01/05/25 History capsule,extended release 24 hr dulaglutide 0.75 mg/0.5 mL 0.75 mg subcut QWEEK 02/06/25 02/02/25 History subcutaneous pen injector (Trulicity) metformin 500 mg tablet,extended 500 mg PO BID 02/06/25 Unknown History release 24 hr Allergy/AdvReac Type Severity Reaction Status Date / Time ketorolac tromethamine (From Allergy Hives Verified 02/06/25 14:40 Toradol) nitrofurantoin Allergy Hives Verified 02/06/25 14:40 Family History Mother A-fib CVA (cerebral vascular accident) Father A-fib Grandmother Breast cancer Surgical History S/P endometrial ablation Hx of bilateral breast reduction surgery History of bilateral breast reduction surgery Hx of tubal ligation History of lumpectomy History of mastectomy Social History number of children: 2 current occupational status: unemployed Smoking Status: Never smoker alcohol intake: never substance use type: does not use caffeine: Yes what type of physical activity do you participate in: walking seatbelt use: always do you feel safe at home: Yes 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 Constitutional Constitutional: Denies chills, fatigue, fever(s) or malaise Eyes Eyes: Denies blurry vision ENT HEENT: Denies headache(s) or nasal discharge Cardiovascular Cardiovascular: Reports chest pain and dyspnea on exertion; Denies syncope Respiratory/Chest Respiratory/Chest: Denies cough, shortness of breath at rest or shortness of breath with exertion Gastrointestinal Gastrointestinal: Denies constipation, diarrhea, nausea or vomiting Genitourinary Genitourinary: Denies dysuria Neurologic Neurologic: Denies focal weakness, numbness or tremor(s) Psychiatric Psychiatric: Denies anxiety or depression Vital Signs Vital Signs Vital Signs: 02/06/25 14:40 02/06/25 14:52 02/06/25 16:35 Temperature 97.6 F L Temperature Source Oral Pulse Rate 119 H 103 H Respiratory Rate 20 H 23 H Respiratory Effort Short of Breath Blood Pressure 177/114 H Blood Pressure Mean 135 Pulse Ox 97 95 Oxygen Delivery Method Room Air 02/06/25 16:39 02/06/25 17:00 02/06/25 17:30 Temperature Temperature Source Pulse Rate 103 H 105 H 102 H Respiratory Rate 23 H 24 H 23 H Respiratory Effort Blood Pressure 133/99 H 141/100 H Blood Pressure Mean 110 114 Pulse Ox 94 96 95 Oxygen Delivery Method Room Air Room Air 02/06/25 18:00 02/06/25 18:00 02/06/25 18:00 Temperature Temperature Source Pulse Rate 106 H Respiratory Rate 24 H Respiratory Effort Blood Pressure 132/86 H 134/86 H 134/86 H Blood Pressure Mean 101 100 100 Pulse Ox 95 Oxygen Delivery Method Room Air 02/06/25 18:00 02/06/25 18:31 02/06/25 19:00 Temperature Temperature Source Pulse Rate 106 H 98 98 Respiratory Rate 18 20 H 20 H Respiratory Effort Blood Pressure 134/86 H 136/93 H Blood Pressure Mean 100 107 Pulse Ox 97 97 98 Oxygen Delivery Method Room Air 02/06/25 19:30 02/06/25 20:00 02/06/25 20:12 Temperature 98 F Temperature Source Pulse Rate 101 H 99 98 Respiratory Rate 16 19 H 20 H Respiratory Effort Blood Pressure 151/113 H 151/113 H Blood Pressure Mean 126 125 Pulse Ox 97 Oxygen Delivery Method Weight Weight: 279 lb 4.8 oz Body Mass Index (BMI) 45.1 Physical Exam Narrative General: Alert, Oriented x3, Cooperative, No apparent distress, morbid obesity HEENT: Atraumatic, PERRLA, EOMI, Normocephalic Oral: Moist Mucosa Neck: Supple, No JVD Lungs: Diminished, Normal air movement, No rhonchi, No wheeze, No rales Cardiovascular: Tachycardic, Regular Rhythm, Normal S1, Normal S2, No murmurs Abdomen: Soft, Non Tender, Non-Distended, No Hepato-splenomegaly Extremities: No edema, Capillary Refill Less than 3 Seconds Skin: No rashes, No breakdown Musculoskeletal: No Tenderness to Palpation of Joints or Extremities Neurological: No focal neurological deficits, Motor Exam 5/5 strength throughout, Sensory exam intact to light touch and pain Psych/Mental Status: Normal Affect, Appropriate Results Lab / Micro Data 02/06/25 15:14 02/06/25 15:14 Labs: Laboratory Results - last 24 hr 02/06/25 15:14: WBC 8.3, RBC 4.89, Hgb 14.2, Hct 42.2, MCV 86.3, MCH 29.0, MCHC 33.6, RDW Std Deviation 42.9, RDW Coeff of Casie 13.7, Plt Count 331, MPV 9.7, Immature Gran % (Auto) 0.500, Neut % (Auto) 50.3, Lymph % (Auto) 39.4, [place] % (Auto) 7.3, Eos % (Auto) 1.8, Baso % (Auto) 0.7, Absolute Neuts (auto) 4.2, Absolute Lymphs (auto) 3.25, Nucleated RBC % 0, D-Dimer Quant (PE/DVT) Cancelled, Sodium 138, Potassium 3.5, Chloride 102, Carbon Dioxide 23.0, Anion Gap 14, BUN 9, Creatinine 0.69 L, Estim Creat Clear Calc 137.25, Est GFR (MDRD) Non-Af 108, BUN/Creatinine Ratio 13.0, Glucose 111 H, Calcium 9.7, Troponin T High Sens < 6 02/06/25 16:19: D-Dimer Quant (PE/DVT) < 0.27 L 02/06/25 17:13: Troponin T Hi Sens 2 Hr < 6 02/06/25 19:14: Troponin T Hi Sens 4Hr < 6 Imaging Radiology Impression Chest X-Ray 02/06/25 14:57 IMPRESSION: No acute cardiopulmonary process. Reading Location: [facility] Chest CTA 02/06/25 18:17 IMPRESSION: LIMITED. NO LARGE CENTRAL PULMONARY EMBOLI. Reading [facility] Assessment & Plan Assessment/Plan (1) Chest pain, exertional: PLAN: Plan 1. Chest pain rule out/essential HTN ? Blood pressures are little bit elevated but that is due to stress she states, will continue with her home blood pressure medications ? Will check a lipid panel in the morning ? Will plan for stress test, her troponins were all negative 2. Anxiety/depression ? Stable ? Continue with her home medications 3. DM2/morbid obesity ? She is on Trulicity which we will hold ? Blood sugars currently are stable and I do anticipate discharge by tomorrow afternoon so we will place her on a cardiac diet and she can resume her home medications on discharge ? BMI 45.1 4. GERD ? Stable ? Continue with her PPI and Carafate DVT: Ambulation Charges/Coding Visit Charges Inpatient E&M: 42590 Init Hosp L2
--- NOTE | 2025-02-06 20:43 | CASEMGMT ---
Care Management Face to Face with patient for initial transition planning/care coordination assessment in the ED. 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 Patient alert and oriented. Patient willing to participate in assessment and is able to answer all questions appropriately. Patient's sister at bedside; permission given to speak in front of patient's sister. Care providers, pharmacy, and demographics verified. Admitting Diagnosis: Chest pain, exertional Other diagnosis history: breast cancer, hypertension, type 2 diabetes PCP: [facility] Specialists: Yrn, oncology. Jade Mosqueda CNP, breast specialist. Preferred Pharmacy: [facility] Insurance: [employer] Prescription Benefit: yes Living Will/HPOA: none, but would like to complete during admission. LNOK: Karlos and 2 children Living Arrangements: lives with family in a 1 story home with no steps to enter, independent at baseline with all ADLs/IADLs Transportation: patient drives DME: blood pressure cuff, glucometer and testing strips, pulse ox HHC: none SNF/Rehab: none Community Resources: none Behavioral Health History: anxiety and depression, per medical records Patient goals: Patient wishes to discharge home, denies need for home health care at this time. Patient denies any further needs or concerns at this time. Disposition Plan: admission to acute; RN CM/SW to follow for discharge planning needs that may arise. Christa rBown, PSYCH ARNP, FUNCTIONAL MENTAL DISABILITY TEACHER
--- NOTE | 2025-02-06 21:36 | EKG12_ITS ---
Test Reason : PRE OP Blood Pressure : */* mmHG Vent. Rate : 77 BPM Atrial Rate : 77 BPM P-R Int : 148 ms QRS Dur : 94 ms QT Int : 410 ms P-R-T Axes : 16 -13 17 degrees QTcB Int : 463 ms Normal sinus rhythm Minimal voltage criteria for LVH, may be normal variant ( R in aVL ) Borderline ECG When compared with ECG of 06-Feb-2025 21:40, MANUAL COMPARISON REQUIRED DATA IS UNCONFIRMED Confirmed by ANGEL RODRIGUEZ ([id number]), editor map BRANDIN VIEIRA ([id number]) on 02/11/2025 8:13:51 AM Referred By: LIANG Confirmed By: ANGEL RODRIGUEZ
[2025-02-06] MEDS: Pantoprazole Sodium 20 MG Tablet PO (21:52)
[2025-02-06] MEDS: Sucralfate 1 GM Tablet PO (21:52)
[2025-02-07] MEDS: oxyCODONE 5 MG Tablet PO (00:04)
[2025-02-07 05:00] VITALS: BP 151/105; PULSE 83; RESP 18; TEMP 35.2; O2SAT 96
[2025-02-07] MEDS: Losartan Potassium 100 MG Tablet PO (05:36)
[2025-02-07] MEDS: hydroCHLOROthiazide 25 MG Tablet PO (05:37)
--- NOTE | 2025-02-07 05:55 | EKG12_ITS ---
Test Reason : CP ADMIT Blood Pressure : */* mmHG Vent. Rate : 88 BPM Atrial Rate : 88 BPM P-R Int : 152 ms QRS Dur : 94 ms QT Int : 376 ms P-R-T Axes : 21 -12 15 degrees QTcB Int : 454 ms Normal sinus rhythm Moderate voltage criteria for LVH, may be normal variant ( R in aVL , [place] product ) Borderline ECG When compared with ECG of 06-Feb-2025 15:09, MANUAL COMPARISON REQUIRED DATA IS UNCONFIRMED Confirmed by ANGEL RODRIGUEZ ([id number]), art editor BRANDIN VIEIRA ([id number]) on 02/11/2025 8:14:15 AM Referred By: DR TAVERA Confirmed By: ANGEL RODRIGUEZ
[2025-02-07 06:25] LABS: Cholesterol 183 mg/dL (<=200); High Density Lipoprotein 45 mg/dL; Low Density Lipoprotein Calc. 96 mg/dL; Triglycerides 212 mg/dL; Very Low Density Lipoprotein 42 mg/dL (5-40); cholesterol:hdl ratio screen 4.07
[2025-02-07 10:03] VITALS: BP 132/92; PULSE 92; RESP 18; TEMP 36.5; O2SAT 96
[2025-02-07] MEDS: Venlafaxine XR 150 MG Capsule PO (10:06)
[2025-02-07] MEDS: Pantoprazole Sodium 20 MG Tablet PO (10:06)
[2025-02-07] MEDS: buPROPion (SR) 150 MG Tablet.SA PO (10:06)
[2025-02-07 11:41] LABS: Bedside Glucose 106 mg/dL (74-106)
--- NOTE | 2025-02-07 12:04 | STRESSREP_ITS ---
Stress Test Report Pharmacologic/Lexiscan myocardial perfusion stress test. Indication; patient had symptoms of chest pain, history of PE with negative CTA chest. Cardiac workup with a series of high sensitive troponins were within normal. Patient was very anxious and having chest pain and was admitted for observation and evaluation by nuclear stress test. Stress protocol: Resting EKG demonstrates. Normal sinus rhythm. 0.4 mg of regadenoson was infused per usual protocol followed by rapid intravenous saline flush injection continuous EKG monitoring was performed. The maximum heart rate attained was 106 bpm which was 61% of maximum predicted heart . Stress EKG showed[, no significant change from the resting EKG, with maximum heart rate of 106bpm. Arrhythmia: No arrhythmia demonstrated Symptoms: Patient had no symptoms of chest pain Blood pressure at rest: [132/62 blood pressure at the end of stress: 124/62] Myocardial perfusion protocol. [15 mCi ]of Technetium 99m Sestamibi was injected at rest. [ 0.4 mg ]of Regadenoson was infused per usual protocol peak infusion[44.7 mCi ]of Technetium 99m sestamibi was injected. Stress images were obtained stress and rest images were reconstructed and compared in the short axis vertical and horizontal long axis. Gated images were also obtained Perfusion SPECT analysis: Review of the images demonstrate normal uptake of sestamibi at rest, post stress images demonstrate similar uptake of sestamibi to the resting images, homogeneous tracer uptake With no evidence of reversible myocardial ischemia. Gated SPECT analysis: The gated ejection fraction is 68%. Normal LV wall motion, with normal LV systolic function Conclusion: Negative Lexiscan sestamibi, study with normal myocardial perfusion And normal LV systolic function. Jade Burger MD,FACC,[facility]
--- NOTE | 2025-02-07 12:31 | CASEMGMT ---
Social Work- SW met with pt to complete directives, as pt previously indicated interest in doing so. SW introduced self and role. Pt named , Karlos, as primary agent and sons as alternates. Copies provided to pt for her agents; original provided to pt. SW placed a copy on the chart. Pt reports no other needs or concerns at this time. SWEETIE Dye
--- NOTE | 2025-02-07 13:01 | DCINST_ITS ---
Discharge Instructions Diet Discharge Diet: No restrictions DC O2, CPAP, BIPAP needs Home O2 Discharge instructions: No Dressing / Incision Discharge Activity: No Restrictions Follow Up Care Test Results: Test results from this visit will be discussed in further detail at your follow- up appointment, if applicable. Discharge Plan Admission Admit Date/Time: 02/06/25 20:22 Primary Reason for Your Visit: chest pain Attending Provider: Nilo Hidalgo Primary Care Provider: Sukhdeep Muse Consulting Providers: Cristopher Romero Discharge Orders/Prescriptions Prescriptions: Continued ascorbate calcium (vitamin C) 500 mg tablet 500 mg PO DAILY sucralfate [Carafate] 1 gram tablet 1 g PO BID omeprazole 20 MG capsule 20 mg PO BID Patient Comments: acid reflux multivitamin with folic acid 1 TABLET tablet 1 tab PO DAILY Trulicity 0.75 mg/0.5 mL pen injector 0.75 mg subcut QWEEK metformin 500 mg tablet extended release 24 hr 1,000 mg PO DAILY venlafaxine 150 mg capsule,extended release 24hr 150 mg PO DAILY bupropion HCl 150 mg tablet sustained-release 12 hr 150 mg PO DAILY hydrochlorothiazide 25 mg tablet 25 mg PO DAILY losartan 100 mg tablet 100 mg PO DAILY calcium carbonate-vitamin D3 250 mg-3.125 mcg (125 unit) tablet 1 tab PO BID Referrals / Follow Up: Sukhdeep Muse MD [Primary Care Provider] - Disposition Disposition (needs filled in before D/C Order can be placed): Home, Self Care
--- NOTE | 2025-02-07 13:02 | DS.PCM_ITS ---
Providers Date of Admission: 02/06/25 Date of Discharge: 02/07/25 Primary Care Physician: Dr. Sukhdeep Muse MD Reason For Visit: CHEST PRESSURE Diagnosis Discharge Diagnosis (1) Chest pain, exertional: Status: Acute Code(s): R07.9 - Chest pain, unspecified Medications at Discharge Home Medications multivitamin with folic acid 400 mcg tablet 1 tab PO DAILY supplement 02/17/14 omeprazole 20 mg capsule,delayed release 20 mg PO BID GERD 02/17/14 ascorbate calcium (vitamin C) 500 mg tablet 500 mg PO DAILY supplement 05/24/23 sucralfate 1 gram tablet (Carafate) 1 g PO BID stomach 05/28/24 bupropion HCl 150 mg tablet,12 hr sustained-release 150 mg PO DAILY mental health 07/24/24 calcium 250 mg (as carbonate)-vitamin D3 3.125 mcg (125 unit) tablet 1 tab PO BID supplement 07/24/24 hydrochlorothiazide 25 mg tablet 25 mg PO DAILY blood pressure 07/24/24 losartan 100 mg tablet 100 mg PO DAILY blood pressure 07/24/24 venlafaxine 150 mg capsule,extended release 24 hr 150 mg PO DAILY anxiety 07/24/24 dulaglutide 0.75 mg/0.5 mL subcutaneous pen injector (Trulicity) 0.75 mg subcut QWEEK diabetes 02/06/25 metformin 500 mg tablet,extended release 24 hr 1,000 mg PO DAILY diabetes 02/06/25 Hospital Course Operations None Procedures EKG, Stress test and - (Chest x-ray, CTA chest) Summary of Care Provided Minutes Spent on Discharge: 35 Hospital Course: Patient is a 49-year-old female who presented [facility] ED on 02/06/2025 with chest pain. Short hospital course as noted below. Patient discharged home in stable condition on 02/07. 1. Chest pain, ACS ruled out ? Presented with exertional chest pain and mildly elevated blood pressures. History of provoked remote PE, not on anticoagulation. Troponin x 3 negative in ED. No EKG changes noted. CTA chest was negative for PE. Stress test on 02/07 was negative. Suspect that anxiety played a role in her chest pain. Chest pain resolved by hospital day 2 and blood pressures improved on home blood pressure regimen. Stable for discharge home on 02/07. Chronic medical conditions: ? Class III obesity: BMI 44 on admit. Recommended weight loss on discharge. ? Type 2 diabetes mellitus: Continue home metformin and Trulicity on discharge. ? Anxiety/depression: Continue home bupropion and venlafaxine. ? Hypertension: Continue home losartan and hydrochlorothiazide. ? GERD: Continue home omeprazole and sucralfate. Total clinical time spent by myself addressing the patient's medical issues, reviewing all the data, and collaborating with patient's care team: 35 minutes. Physical Exam Narrative General: Alert, Oriented x3, Cooperative, No apparent distress, morbid obesity HEENT: Atraumatic, PERRLA, EOMI, Normocephalic Oral: Moist Mucosa Neck: Supple, No JVD Lungs: Diminished, Normal air movement, No rhonchi, No wheeze, No rales Cardiovascular: Tachycardic, Regular Rhythm, Normal S1, Normal S2, No murmurs Abdomen: Soft, Non Tender, Non-Distended, No Hepato-splenomegaly Extremities: No edema, Capillary Refill Less than 3 Seconds Skin: No rashes, No breakdown Musculoskeletal: No Tenderness to Palpation of Joints or Extremities Neurological: No focal neurological deficits, Motor Exam 5/5 strength throughout, Sensory exam intact to light touch and pain Psych/Mental Status: Normal Affect, Appropriate Weight / BMI Weight Weight: 125.8 kg Body Mass Index (BMI) 44.7 ABG / Lab / Microbiology Data 02/06/25 15:14 02/06/25 15:14 Laboratory: Laboratory Results - last 24 hr 02/06/25 15:14: WBC 8.3, RBC 4.89, Hgb 14.2, Hct 42.2, MCV 86.3, MCH 29.0, MCHC 33.6, RDW Std Deviation 42.9, RDW Coeff of Casie 13.7, Plt Count 331, MPV 9.7, Immature Gran % (Auto) 0.500, Neut % (Auto) 50.3, Lymph % (Auto) 39.4, [place] % (Auto) 7.3, Eos % (Auto) 1.8, Baso % (Auto) 0.7, Absolute Neuts (auto) 4.2, Absolute Lymphs (auto) 3.25, Nucleated RBC % 0, D-Dimer Quant (PE/DVT) Cancelled, Sodium 138, Potassium 3.5, Chloride 102, Carbon Dioxide 23.0, Anion Gap 14, BUN 9, Creatinine 0.69 L, Estim Creat Clear Calc 137.25, Est GFR (MDRD) Non-Af 108, BUN/Creatinine Ratio 13.0, Glucose 111 H, Calcium 9.7, Troponin T High Sens < 6 02/06/25 16:19: D-Dimer Quant (PE/DVT) < 0.27 L 02/06/25 17:13: Troponin T Hi Sens 2 Hr < 6 02/06/25 19:14: Troponin T Hi Sens 4Hr < 6 02/07/25 05:22: Triglycerides 212 H, Cholesterol 183, LDL Cholesterol, Calc 96, VLDL Cholesterol 42 H, HDL Cholesterol 45, Cholesterol/HDL Ratio 4.07 02/07/25 11:24: POC Glucose 106 Radiography Diagnostic Testing: Radiology Impression Chest X-Ray 02/06/25 14:57 IMPRESSION: No acute cardiopulmonary process. Reading Location: [facility] Chest CTA 02/06/25 18:17 IMPRESSION: LIMITED. NO LARGE CENTRAL PULMONARY EMBOLI. Reading [facility] Instructions Discharge Diet: No restrictions DC O2, CPAP, BIPAP Needs Home O2 Discharge instructions: No Meaningful Use Info Meaningful Use Meaningful Use Diagnoses (Choose all that apply): None applicable Ischemic Stroke Statin Dosing Therapy Reference: STATIN DOSE THERAPY REFERENCE: * Patients > 75 years receive moderate or high dose statin therapy. * Patients 75 years or YOUNGER should receive HIGH intensity statin dose unless contraindicated. You will be required to document reason for non-treatment if statin daily dose does not meet guidelines. HIGH DOSE STATIN THERAPY DAILY Atorvastatin > than or = to 40 mg Rosuvastatin > than or = to 20 mg Amlodipine + Atorvastatin > than or = to 2.5/40 mg Ezetimibe + Simvastatin 10/80 mg Simvastatin 80mg Discharge Plan Admission Admit Date/Time: 02/06/25 20:22 Primary Reason for Your Visit: chest pain Attending Provider: Nilo Hidalgo Primary Care Provider: Sukhdeep Muse Consulting Providers: Cristopher Romero Discharge Orders/Prescriptions Prescriptions: Continued ascorbate calcium (vitamin C) 500 mg tablet 500 mg PO DAILY sucralfate [Carafate] 1 gram tablet 1 g PO BID omeprazole 20 MG capsule 20 mg PO BID Patient Comments: acid reflux multivitamin with folic acid 1 TABLET tablet 1 tab PO DAILY Trulicity 0.75 mg/0.5 mL pen injector 0.75 mg subcut QWEEK metformin 500 mg tablet extended release 24 hr 1,000 mg PO DAILY venlafaxine 150 mg capsule,extended release 24hr 150 mg PO DAILY bupropion HCl 150 mg tablet sustained-release 12 hr 150 mg PO DAILY hydrochlorothiazide 25 mg tablet 25 mg PO DAILY losartan 100 mg tablet 100 mg PO DAILY calcium carbonate-vitamin D3 250 mg-3.125 mcg (125 unit) tablet 1 tab PO BID Referrals / Follow Up: Sukhdeep Muse MD [Primary Care Provider] - Disposition Disposition (needs filled in before D/C Order can be placed): Home, Self Care Charges/Coding Visit Charges Inpatient E&M: 63976 Disch Hosp >30min
[2025-02-07 14:16] VITALS: BP 147/87; PULSE 89; RESP 17; O2SAT 96
== END 2025-02-07 13:02 | disposition home or self-care (01) ==
LOC: ED 20:01 → PCU 20:32
PROVIDERS: Admitting Provider Family Medicine; Emergency Provider Emergency Medicine; PCP Family Medicine; Visit Provider Hospitalist
DX: R07.89 Other chest pain (principal); E66.813 Obesity, class 3; Z68.42 Body mass index [BMI] 45.0-49.9, adult; E11.9 Type 2 diabetes mellitus without complications; Z86.711 Personal history of pulmonary embolism; F41.9 Anxiety disorder, unspecified; K21.9 Gastro-esophageal reflux disease without esophagitis; I10 Essential (primary) hypertension; Z82.49 Family history of ischemic heart disease and other diseases of the circulatory system; F32.A Depression, unspecified; Z79.84 Long term (current) use of oral hypoglycemic drugs; R06.02 Shortness of breath; M79.601 Pain in right arm; Z79.899 Other long term (current) drug therapy
CPT/HCPCS: 36415; 71046; 71275; 78452; 80048; 80061; 82962; 84484; 85025; 85379; 93005; 93017; 99221; 99285; A9500; Q9967; A4216; G0378; J2785

== ENCOUNTER 2025-07-07 17:17 | Emergency (ER) | payer MEDICAID, SELFPAY ==
[2025-07-07 17:17] VITALS: BP 153/103; PULSE 116; RESP 18; TEMP 36.9; O2SAT 96; BMI 43.9
--- NOTE | 2025-07-07 17:52 | EX.ED.DYSGE1 ---
HPI History of Present Illness Chief Complaint: General Illness Informant: patient Narrative Narrative: 50-year-old female presenting to the emergency room stating she does not feel well. Patient states last weekend she had some nausea vomiting developed a rash following a tick bite on the left upper arm as well as a fever. She saw primary care nurse practitioner on Tuesday and Tuesday and was started on doxycycline. Concern was for [place] spotted fever. No blood work was obtained per the patient. She states she was otherwise doing well for the rest of the week until Tuesday into Tuesday when she developed generalized fatigue and a headache at the vertex of her scalp generalized myalgias and a chest pressure. She states she has had prior pulmonary embolism that felt more like an elephant sitting on her. She was it was felt that the PE was from hormonal medication. She does have a history of hypertension as well as GERD and diabetes. Patient is utilizing hydrocortisone cream for the rash [facility] Medical History Wears contact lenses Wears glasses Cancer Depression Anxiety Arthritis Migraine headache History of hiatal hernia Gastric reflux Non-smoker History of stress test History of echocardiogram Hypertension Diabetes Leg pain Anxiety and depression History of breast cancer Pulmonary embolism Home Medications Medication Instructions Recorded Last Taken Type multivitamin with folic acid 400 1 tab PO DAILY supplement 02/17/14 02/06/25 08:13 History mcg tablet omeprazole 20 mg capsule,delayed 20 mg PO BID GERD 02/17/14 02/06/25 08:13 History release ascorbate calcium (vitamin C) 500 500 mg PO DAILY supplement 05/24/23 02/06/25 08:12 History mg tablet sucralfate 1 gram tablet (Carafate) 1 g PO BID stomach 05/28/24 02/06/25 08:14 History bupropion HCl 150 mg tablet,12 hr 150 mg PO DAILY mental health 07/24/24 02/06/25 08:13 History sustained-release calcium 250 mg (as 1 tab PO BID supplement 07/24/24 02/06/25 08:13 History carbonate)-vitamin D3 3.125 mcg (125 unit) tablet hydrochlorothiazide 25 mg tablet 25 mg PO DAILY blood pressure 07/24/24 02/06/25 08:13 History losartan 100 mg tablet 100 mg PO DAILY blood pressure 07/24/24 02/06/25 08:13 History venlafaxine 150 mg 150 mg PO DAILY anxiety 07/24/24 02/06/25 08:14 History capsule,extended release 24 hr dulaglutide 0.75 mg/0.5 mL 0.75 mg subcut QWEEK diabetes 02/06/25 02/02/25 History subcutaneous pen injector (Trulicity) metformin 500 mg tablet,extended 1,000 mg PO DAILY diabetes 02/06/25 Unknown History release 24 hr Allergy/AdvReac Type Severity Reaction Status Date / Time ketorolac tromethamine (From Allergy Hives Verified 07/07/25 17:17 Toradol) nitrofurantoin Allergy Hives Verified 07/07/25 17:17 Family History Mother A-fib CVA (cerebral vascular accident) Father A-fib Grandmother Breast cancer Surgical History S/P endometrial ablation Hx of bilateral breast reduction surgery History of bilateral breast reduction surgery Hx of tubal ligation History of lumpectomy History of mastectomy Social History number of children: 2 current occupational status: unemployed Smoking Status: Never smoker alcohol intake: never substance use type: does not use caffeine: Yes what type of physical activity do you participate in: walking seatbelt use: always do you feel safe at home: Yes 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 unemployed [facility] ED Constitutional Constitutional ED: Reports chills; Denies fever(s) or weight loss Eyes Eyes: Denies change in vision or diplopia ENT ENT ED: Denies ear pain, rhinorrhea or sore throat Cardiovascular Cardiovascular: Reports chest pain; Denies orthopnea, palpitations or racing heartbeat Respiratory/Chest Respiratory/Chest: Denies cough, dyspnea or orthopnea Gastrointestinal Gastrointestinal: Reports nausea; Denies abdominal pain, diarrhea or vomiting Genitourinary Genitourinary ED: Denies dysuria, hematuria or urinary frequency Musculoskeletal Musculoskeletal: Reports myalgias; Denies arthralgias Integumentary Reports rash; Denies abscess Neurologic Neurologic: Reports headache(s); Denies weakness Psychiatric Psychiatric: Denies anxiety, depression, suicidal ideation or suicidal thoughts Endocrine Endocrinology: Denies polydipsia, polyphagia or polyuria Allergic/Immunologic Allergic/Immunologic ED: Denies mouth swelling, tongue swelling or urticaria EXAM Physical Exam Const Vital Signs: 07/07/25 17:17 07/07/25 17:34 07/07/25 19:17 Temperature 98.5 F 98.3 F Temperature Source Oral Oral Pulse Rate 116 H 101 H Respiratory Rate 18 22 H Respiratory Effort Normal Non-Labored Respiratory Pattern Normal Blood Pressure 153/103 H 125/99 H Blood Pressure Mean 119 107 Pulse Ox 96 98 Oxygen Delivery Method Room Air Room Air 07/07/25 20:48 Temperature 98.6 F Temperature Source Pulse Rate 103 H Respiratory Rate 22 H Respiratory Effort Respiratory Pattern Blood Pressure 140/93 H Blood Pressure Mean 108 Pulse Ox 96 Oxygen Delivery Method Positive well nourished and well developed General Appearance ED: well developed and NAD HEENT Reports normocephalic, head/scalp atraumatic and moist mucous membranes Eyes PERRL and EOMs intact bilaterally Neck no lymphadenopathy, supple and no JVD Neck Narrative: No meningeal signs Resp normal respiratory effort and clear to auscultation bilaterally Cardio regular rate, regular rhythm and no murmurs Rate: tachycardic GI normal to inspection, nondistended, normoactive bowel sounds and non-tender Palpation: soft Back/Spine no CVA tenderness and normal ROM Extremity normal to inspection General Extremety ED: Negative for edema General Extremity: Negative for edema Neuro oriented x3, CN's II-XII intact bilaterally and no sensory deficits noted Sensorium / Orientation: alert Motor Exam: strength 5/5 throughout Psych mental status grossly normal Mood & Affect: Negative for depressed or tearful Skin no wounds Skin Narrative: Left upper medial arm demonstrates very nonspecific red slightly raised rash discrete circles. No signs of secondary infection or crusting. MDM MDM MDM Narrative Medical decision making narrative: Differential diagnosis includes but not limited to acute coronary syndrome pulmonary embolism sepsis electrolyte abnormalities EKG is a normal sinus rhythm at a rate of [address] of the chest is negative for pulmonary embolism. 2 sets of cardiac enzymes are negative. White count is 9.3 with a normal differential. CBC and LFTs are within normal limits. Clinically the patient appears well. She has tachycardia that I cannot fully explain. I have her continue her doxycycline and have her follow-up with primary care later this week if not improving return if worsening History & Record Review Discussion w/independent historian: Patient Lab Data Attestation: I reviewed the patient's lab results. Labs: Laboratory Results - last 24 hr 07/07/25 07/07/25 18:02 20:08 WBC 9.3 RBC 5.05 Hgb 14.3 Hct 43.3 MCV 85.7 MCH 28.3 MCHC 33.0 RDW Std Deviation 42.9 RDW Coeff of Casie 13.8 Plt Count 267 MPV 10.0 Immature Gran % (Auto) 0.400 Neut % (Auto) 57.6 Lymph % (Auto) 32.5 [place] % (Auto) 7.0 Eos % (Auto) 1.9 Baso % (Auto) 0.6 Absolute Neuts (auto) 5.3 Absolute Lymphs (auto) 3.01 Nucleated RBC % 0 Sodium 138 Potassium 3.7 Chloride 100 Carbon Dioxide 25.6 Anion Gap 12 BUN 11 Creatinine 0.67 L Estim Creat Clear Calc 137.68 Est GFR (MDRD) Non-Af 108 BUN/Creatinine Ratio 16.1 Glucose 92 Calcium 9.5 Total Bilirubin 0.61 Direct Bilirubin 0.20 AST 24 ALT 20 Alkaline Phosphatase 76 Troponin T High Sens < 6 Troponin T Hi Sens 2 Hr < 6 Total Protein 7.4 Albumin 4.0 Globulin 3.5 Radiography Diagnostic Testing: Clinical Impression(s) from Imaging Studies Chest CTA 07/07/25 18:45 IMPRESSION: No acute intrathoracic abnormality. No pulmonary arterial emboli. Reading Location: [facility] EKG Initial EKG: Attestation: I personally reviewed and interpreted this EKG as follows: Comments: Normal sinus rhythm ventricular rate of 99 bpm Discharge Plan Triage Chief Complaint: General Illness ED Provider: Ibrahima Bird Dx/Rx/DC Orders Clinical Impression: Tachycardia, Fatigue, Rash, Chest pain Instructions: ED Chest Pain, Uncertain Cause Prescriptions: No Action ascorbate calcium (vitamin C) 500 mg tablet 500 mg PO DAILY sucralfate [Carafate] 1 gram tablet 1 g PO BID omeprazole 20 MG capsule 20 mg PO BID Patient Comments: acid reflux multivitamin with folic acid 1 TABLET tablet 1 tab PO DAILY Trulicity 0.75 mg/0.5 mL pen injector 0.75 mg subcut QWEEK metformin 500 mg tablet extended release 24 hr 1,000 mg PO DAILY venlafaxine 150 mg capsule,extended release 24hr 150 mg PO DAILY bupropion HCl 150 mg tablet sustained-release 12 hr 150 mg PO DAILY hydrochlorothiazide 25 mg tablet 25 mg PO DAILY losartan 100 mg tablet 100 mg PO DAILY calcium carbonate-vitamin D3 250 mg-3.125 mcg (125 unit) tablet 1 tab PO BID Primary Care Provider: Sukhdeep Muse Referrals: Sukhdeep Muse MD [Primary Care Provider, Medical] - 3-5 Days if not improving Print Language: Sami Disposition Disposition: Home, Self Care
--- OUTSIDE RECORDS SUMMARY | 2025-07-07 18:02 | XMS RPT_ITS | CCD ---
Author Organization [facility] Care Team Providers Care Strategic Sourcing Specialist Name Role Phone Randy Zhang MD Primary Care Provider Vicente, Dr. Tarango Primary Care Provider Vicente, Dr. Tarango Referring Provider Dr. Alejandra Wick Attending Provider Randy Zhang MD Primary Care Provider Randy Zhang MD Primary Care Provider [phone] Randy Zhang MD Primary Care Provider Vicente, Dr. Tarango Primary Care Provider Vicente, Dr. Tarango Referring Provider Dr. Alejandra Wick Attending Provider Vicente, Dr. Tarango Primary Care Provider Vicente, Dr. Tarango Referring Provider Brennen 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, THONG Gregorio Attending Provider MARISA RAYMOND~[id number], MARISA Chappell Attending Unavailable RANDY SIM~[id number] Primary Care Unavailable MARY CUNNINGHAM MD Consulting Anna BROWN MD~[id number], STEPHANIE mata Unavailable MARY CUNNINGHAM MD Consulting Unavailable RANDY SIM~[phone] Consulti ng Unavailable RANDY ZHANG Consulting Unavailable JUAN RAYMOND, ADA Consulting Unavailcorey MARTINEZ MD, ADA Consulting Unavailabl emil BROWN MD, Jayro Carvalho Consulting Unavailab radha BROWN MD, Jayro Carvalho Consulting Unavailab le JYOTSNA SHARMA, PEDRITO Granaods Consulting Unavailabl e GOYAL ZACHARY, PEDRITO R Consulting Unavailabl e WOOD RORY MERINO A Consulting Unavailable WOOD HERMAN MERINOLAS A Consulting Unavailable NEIGHBARGER APPLIQUER ZIGZAG, MAIA Sterling Consulting U navailable RANDY SIM~[id number] Primary Care Unavailable NEIGHBARGER APPLIQUER ZIGZAG~[id number], NEIGHBARGER MAIA D Admitting Unavailable NEIGHBARGER APPLIQUER ZIGZAG~, NEIGHBARGER MAIA D Attending Unavailable NEIGHBARGER APPLIQUER ZIGZAG, MAIA D Consulting U navailable NONE, NONE Consulting Unavailable NONE, NONE Consulting Unavailable Randy Zhang MD Primary Care Provider Haagen APPLIQUER ZIGZAG.CAST SHELL GRINDERaSvita Unavailable Suppan APPLIQUER ZIGZAG.CAST SHELL GRINDER, Maia Dial Unavailable Suppan APPLIQUER ZIGZAG.CAST SHELL GRINDER, Maia A Unavailable Dr. Randy Zhang MD Primary Care Provider Dr. Ashwini Hernandez DO Emergency Provider Dr. Ashwini Hernandez DO Attending Provider Dr. Steven Reyes MD Emergency Provider Dr. Cristopher Tavera MD Admit Provider Dr. Cristopher Tavera MD Attending Provider Dr. Cristopher Tavera MD Other Provider Dr. Nilo Hidalgo DO Attending Provider Dr. Nilo Hidalgo DO Other Provider [phone] Dr. Angel Burger MD Attending Provider Alejandra Wick Attending Unavailable Alejandra Wick Referring Unavailable Randy Zhang Primary Care Unavailable Alejandra Wick Referring Unavailable Alejandra Wick Attending Unavailable Randy Zhang Primary Care Unavailable Cristopher Tavera Admitting Unavailable Cristopher Tavera Consulting Unavailable Angel Burger Attending Unavailable Vicente, Randy Primary Care Unavailable Nilo Hidalgo Consulting Unavailable Nilo Hidalgo Attending Unavailable Marcanthony, Alejandra Attending Unavailable Marcanthony, Alejandra Attending Unavailable Vicente, Randy Referring Unavailable Refugio, Randy Primary Care Unavailable Marcanthony, Alejandra Attending Unavailable Vicente, Randy Referring Unavailable Vicente, Randy Primary Care Unavailable Marcanthony, Alejandra Attending Unavailable Refugio, Randy Referring Unavailable Vicente, Randy Primary Care Unavailable Jeanne Taveras Viv Referring Unavailable Refugio, Randy Primary Care Unavailable Angel Burger Attending Unavailable Marcanthony, Aeljandra Attending Unavailable Marcanthony, Alejandra Consulting Unavailable Marcanthony, Alejandra Referring Unavailable Vicente, Randy Primary Care Unavailable Cristopher Tavera Attending Unavailable Marcanthony, Alejandra Attending Unavailable Marcanthony, Alejandra Referring Unavailable Refugio, Randy Primary Care Unavailable Marcanthony, Alejanrda Attending Unavailable Marcanthony, Alejandra Referring Unavailable Vicente, Randy Primary Care Unavailable Ashwini Hernandez Attending Unavailable Vicente, Randy Primary Care Unavailable Twan Marmolejo Attending Unavailabl e Refugio, Randy Primary Care Unavailable Jeanne Taveras Viv Consulting Unavailable Cristopher Tavera Admitting Unavailable Vicente, Randy Primary Care Unavailable Nilo Hidalgo Attending Unavailable HAAGEN, SAVITA Referring Unavailable VICENTE, RANDY J Primary Care Unavailable SAVITA GRIFFITH Attending Unavailable VICENTE, RANDY J Primary Care Unavailable VICENTE, RANDY J Attending Unavailable VICENTE, RANDY J Primary Care Unavailable KAITLIN MANUEL Attending Unavailable VICENTE, RANDY J Primary Care Unavailable VICENTE, RANDY J Attending Unavailable VICENTE, RANDY J Primary Care Unavailable VICENTE, RANDY J Referring Unavailable VICENTE, RANDY J Primary Care Unavailable VICENTE, RANDY J Attending Unavailable VICENTE, RANDY J Primary Care Unavailable VICENTE, RANDY J Primary Care Unavailable JACOB CUBA Attending Unavailable THERESEAGENSAVITA Attending Unavailable VICENTE, RANDY J Primary Care Unavailable HAAGEN, SAVITA Attending Unavailable VICENTE, RANYD J Primary Care Unavailable HAAGEN, SAVITA Referring Unavailable VICENTE, RANDY J Primary Care Unavailable VICENTE, RANDY J Primary Care Unavailable LINDA DUGAN Attending Unavailable LINDA DUGAN Admitting Unavailable HAAGEN, SAVITA Referring Unavailable VICENTE, RANDY J Primary Care Unavailable HAAGEN, SAVITA Attending Unavailable VICENTE, RANDY J Primary Care Unavailable HAAGEN, SAVITA Referring Unavailable VICENTE, RANDY J Primary Care Unavailable SAVITA GRIFFITH Attending Unavailable RANDY ZHANG Primary Care Unavailable RANDY ZHANG Primary Care Unavailable ARLETH ALVA Attending Unavailable RANDY ZHANG Primary Care Unavailable LINDA DUGAN Attending Unavailable Allergies Allergy Classification Reported Allergen(s) Allergy Type Date of Onset Reaction(s) Facility Angiotensin Converting Enzyme (ALBERTA) Inhibitors (3 sources) Lisinopril Drug Allergy 6 Cough [facility] Work Phone: Nitrofurantoin (3 sources) Nitrofurantoin Drug Allergy 3 Hives, Other: See Comments [facility] Work Phone: NSAIDs (3 sources) Ketorolac Drug Allergy 3 Hives [facility] Work Phone: Phenazopyridine (3 sources) Phenazopyridine Drug Allergy 3 Hives, Other: See Comments [facility] (16 sources) Contrast media Drug Allergy 3 Hives [facility] Work Phone: (20 sources) Ketorolac; Translations: [KETOROLAC TROMETHAMINE] Drug Allergy 3 Hives [facility] Work Phone: (20 sources) Lisinopril; Translations: [LISINOPRIL] Drug Allergy 6 Cough [facility] Work Phone: (16 sources) Morphine Drug Allergy 3 Hives [facility] Work Phone: (20 sources) Nitrofurantoin; Translations: [NITROFURANTOIN] Drug Allergy 3 Hives, Other: See Comments [facility] Work Phone: (20 sources) Phenazopyridine; Translations: [PHENAZOPYRIDINE] Drug Allergy 3 Hives, Other: See Comments [facility] Work Phone: (1 source) Amino Acids Drug Allergy [facility] (1 source) Ketorolac Drug Allergy [facility] (1 source) Phenazopyridine Drug Allergy [facility] (1 source) Ketorolac Drug Allergy 5 [facility] (1 source) Nitrofurantoin Drug Allergy 5 [facility] Medications Current Medications Medication Drug Class(es) Dates Sig (Normalized) Sig (Original) acetaminophen 500 mg oral tablet (20 sources) End: 06-14-2022 take 2 tablets by mouth every eight hours as needed acetaminophen (TYLENOL) 500 mg tablet Take 1,000 mg by mouth every 8 hours as needed. Active Comment on above: Take 1,000 mg by juma th every 8 hours as needed. amoxicillin 500 mg oral capsule (3 sources) Penicillin-class Antibacterial Start: 10-31-2024 End: 11-07-2024 take 1 capsule by mouth three times daily amoxicillin (AMOXIL) 500 mg capsule Indications: Left otitis media, unspecified otitis media type Take 1 capsule by mouth three times a day for 7 days. 21 capsule 10/31/2024 11/07/2024 Active Start: 03-09-2023 End: 03-14-2023 take 1 tablet by mouth twice daily amoxicillin (AMOXIL) 875 mg tablet Indications: Pain, dental Take 1 tablet by mouth twice daily for 5 days. 10 tablet 0 03/09/2023 03/14/2023 Active Comment on above: Take 1 tablet by juma th twice daily for 5 days. ascorbic acid 500 mg oral tablet (20 sources) Vitamin C take 1 tablet by mouth once daily ascorbic acid (VITAMIN C) 500 mg tablet Take 500 mg by mouth once daily. Active Comment on above: Take 500 mg by mouth once daily. Blood Pressure Cuff - Home Use (20 sources) Start: 01-03-2019 Blood Pressure Cuff - Home Use Indications: Essential hypertension BLOOD PRESSURE CUFF FOR HOME USE. DX: LABILE BLOOD PRESSURE 1 Each 01/03/2019 Active Start: 01-03-2019 Blood Pressure Cuff - Home Use Indications: Essential hypertension BLOOD PRESSURE CUFF FOR HOME USE. DX: LABILE BLOOD PRESSURE 1 Each 0 01/03/2019 Active Comment on above: BLOOD PRESSURE CUFF FOR HOME USE. DX: LABILE BLOOD PRESSURE Blood Pressure Monitor (BLOOD PRESSURE KIT) (20 sources) Start: 12-05-2023 Blood Pressure Monitor (BLOOD PRESSURE KIT) Indications: Essential hypertension 1 Each as needed. 1 Each 12/05/2023 Active Start: 12-05-2023 Blood Pressure Monitor (BLOOD PRESSURE KIT) Indications: Essential hypertension 1 Each as needed. 1 Each 0 12/05/2023 Active Comment on above: 1 Each as needed. Blood-Glucose Sensor (FREESTYLE ALTHEA 3 SENSOR) roney (20 sources) Start: 10-15-2024 Blood-Glucose Sensor (FREESTYLE ALTHEA 3 SENSOR) roney Indications: Type 2 diabetes mellitus with hyperglycemia, without long-term current use of insulin (HCC) 1 Each as directed. 2 Each 11 10/15/2024 Active Start: 06-13-2024 End: 06-27-2024 Blood-Glucose Sensor (FREEST YLE ALTHEA 3 SENSOR) roney Indications: Type 2 diabetes mellitus with hyperglycemia, without long-term current use of insulin (HCC) 1 Each as directed. 2 Each 06/13/2024 06/27/2024 Discontinued Start: 06-13-2024 Blood-Glucose Sensor (FREESTYLE ALTHEA 3 SENSOR) roney Indications: Type 2 diabetes mellitus with hyperglycemia, without long-term current use of insulin (HCC) 1 Each as directed. 2 Each 11 06/13/2024 Active 12 hr buPROPion hydrochloride 200 mg extended release oral tablet (20 sources) Aminoketone Start: 04-17-2025 take 1 tablet by mouth once daily buPROPion SR (WELLBUTRIN SR) 200 mg 12 hr tablet Take 1 tablet by mouth once daily. 90 tablet 1 04/17/2025 Active Start: 10-12-2023 End: 07-24-2024 Bupropion Hcl 75 mg tablet Discontinued 75 mg PO THREE TIMES A DAY October 12, 2023 1:00am July 24, 2024 11:05am administer 6 hours apart Start: 09-14-2023 End: 04-15-2025 take 1 tablet by mouth once daily buPROPion SR (WELLBUTRIN SR) 150 mg 12 hr tablet Indications: Anxiety and depression Take 1 tablet by mouth once daily. 30 tablet 5 04/15/2025 Active Comment on above: Take 1 tablet by juma th once daily. calcium ascorbate 500 mg oral tablet (20 sources) Start: 3 Ascorbate Calcium 500 mg tab Take by mouth. 05/24/2023 Active calcium carbonate 625 mg / cholecalciferol 125 unt oral tablet (20 sources) Vitamin D Start: End: take 1 tablet by mouth twice daily calcium-cholecalcifer ol, D3, (OSCAL+D 250) 250 mg-3.125 mcg (125 unit) per tablet Indications: Osteoporosis, unspecified osteoporosis type, unspecified pathological fracture presence Take 1 tablet by mouth two times a day. 60 tablet 11 04/17/2025 04/17/2026 Active Start: 12-10-2021 End: 04-04-2025 take 1 tablet by mouth twice daily calcium-cholecalciferol, D3, (OSCAL+D 25 0) 250 mg-3.125 mcg (125 unit) per tablet Indications: Osteoporosis, unspecified osteoporosis type, unspecified pathological fracture presence Take 1 tablet by mouth two times a day. 60 tablet 11 04/04/2024 Active Comment on above: Take 1 tablet by juma th twice daily. Take 1 tablet by juma th two times a day. 24 hr desvenlafaxine succinate 25 mg extended release oral tablet (2 sources) Serotonin and Norepinephrine Reuptake Inhibitor Start: take 1 tablet by mouth once daily desvenlafaxine ER (PRISTIQ) 25 mg 24 hr tablet Take 1 tablet by mouth once daily. Take with venlafaxine 75 mg daily X 1 week, then stop the venlafaxine and increase the desvenlafaxine to 50 mg daily. 7 tablet 05/22/2025 Active Start: 05-22-2025 take 1 tablet by juma th once daily desvenlafaxine ER (PRISTIQ) 50 mg 24 hr tablet Take 1 tablet by mouth once daily. Start after a week of cross-tapering the venlafaxine and desvenlafaxine). 30 tablet 1 05/22/2025 Active docusate sodium 100 mg oral capsule (20 sources) Start: 07-09-2024 take 1 capsule by mouth every twelve hours as needed docusate sodium (COLACE) 100 mg capsule Take 1 capsule by mouth two times a day as needed for constipation. 30 capsule 07/09/2024 Active 0.5 ml dulaglutide 1.5 mg/ml auto-injector (20 sources) GLP-1 Receptor Agonist Start: 02-09-2023 End: 05-17-2025 inject 0.75 mg by subcutaneous injection every week dulaglutide (TRULICITY) 0.75 mg/0.5 mL pen injector Indications: Type 2 diabetes mellitus with hyperglycemia, without long-term current use of insulin (HCC) Inject 0.75 mg subcutaneously one time a week. Inject dose once per week. Discard Pen After 4 each 5 05/17/2025 Active Start: 01-13-2023 End: 02-05-2023 inject 0.75 mg by subcutaneous injection every week dulaglutide (TRULICITY) 0.75 mg/0.5 mL pen injector Indications: Type 2 diabetes mellitus with hyperglycemia, without long-term current use of insulin (HCC) Inject 0.75 mg subcutaneously one time a week. Inject dose once per week. Discard Pen After 4 Each 0 01/13/2023 02/05/2023 Discontinued Start: 12-13-2022 inject 0.75 mg by anderson bcutaneous injection every week dulaglutide (TRULICITY) 0.75 mg/0.5 mL pen injector Indications: Type 2 diabetes mellitus with hyperglycemia, without long-term current use of insulin (HCC) Inject 0.75 mg subcutaneously one time a week. Inject dose once per week. Discard Pen After 4 Each 0 12/13/2022 Active Start: 09-16-2022 End: 12-11-2022 inject 0.75 mg by subcutaneous injection every week dulaglutide (TRULICITY) 0.75 mg/0.5 mL pen injector Indications: Type 2 diabetes mellitus with hyperglycemia, without long-term current use of insulin (HCC) Inject 0.75 mg subcutaneously one time a week. Inject dose once per week. Discard Pen After 4 Each 0 11/11/2022 12/11/2022 Discontinued Start: 06-22-2022 Dulaglutide (T rulicity) 1.5 mg/0.5 mL pen injector Active 1.5 mg SC EVERY WEEK June 22, 2022 12:00am Start: 05-04-2022 End: 07-27-2022 inject 0.75 mg by subcutaneous injection every week dulaglutide (TRULICITY) 0.75 mg/0.5 mL pen injector Indications: Type 2 diabetes mellitus with hyperglycemia, without long-term current use of insulin (HCC) Inject 0.75 mg subcutaneously one time a week. Inject dose once per week. Discard Pen After 4 Each 1 07/27/2022 Active Comment on above: Inject 0.75 mg subcu taneously one time a week. Inject dose once per week. Discard Pen After ELDERBERRY FRUIT (20 sources) take 1000 mg by mouth once daily elderberry fruit (ELDERBERRY ORAL) Take 1,000 mg by mouth once daily. Active take 1000 mg by mouth once daily elderberry fruit (ELDERBERRY ORAL) Take 1,000 mg by mouth once daily. 0 Active Comment on above: Take 1,000 mg by juma th once daily. fluticasone propionate 0.05 mg/actuat metered dose nasal spray (6 sources) Corticosteroid Start : 02-15 take 1 spray(s) nasal route once daily fluticasone (FLONASE ALLERGY RELIEF) 50 mcg/actuation nasal spray Indications: Sore throat Use 1 spray in each nostril once daily. 11.1 mL 02/15/2025 Active hydroCHLOROthiazide 25 mg oral tablet (20 sources) Thiazide Diuretic Start : 11-02 End: 04-09 take 1 tablet by mouth once daily hydroCHLOROthiazide 25 mg tablet Indications: Essential hypertension Take 1 tablet by mouth once daily. 30 tablet 5 04/10/2025 Active Comment on above: Take 1 tablet by juma th once daily. loratadine 10 mg oral tablet (2 sources) Start : 02-15 End: 03-17 take 1 tablet by mouth once daily loratadine (CLARITIN) 10 mg tablet Indications: Sore throat Take 1 tablet by mouth once daily. 30 tablet 02/15/2025 03/17/2025 Active losartan potassium 100 mg oral tablet (20 sources) Angiotensin 2 Receptor Jj Start : 09-26 End: 04-09 take 1 tablet by mouth once daily losartan (COZAAR) 100 mg tablet Indications: Essential hypertension Take 1 tablet by mouth once daily. 30 tablet 5 04/10/2025 Active Start: 09-07-2021 End: 03-09-2023 take 1 tablet by mouth once daily losartan (COZAAR) 100 mg tablet Indications: Essential hypertension Take 1 tablet by mouth once daily. 30 tablet 5 06/04/2022 03/09/2023 Discontinued Start: 12-18-2017 End: 07-24-2024 take 1 tablet by mouth once daily Losartan 50 MG tablet Discontinued 50 mg PO DAILY December 18, 2017 12:00am July 24, 2024 11:04am Comment on above: Take 1 tablet by juma th once daily. 24 hr metFORMIN hydrochloride 500 mg extended release oral tablet (20 sources) Biguanide Start: 02-06-2025 take 1 tablet by mouth twice daily Metformin 500 mg tablet extended release 24 hr Active 500 mg PO TWICE A DAY February 06, 2025 12:00am Start: 12-13-2022 End: 04-09-2025 take 2 tablets by mouth once daily at breakfast metFORMIN ER (GLUCOPHAGE XR) 500 mg 24 hr tablet Indications: Type 2 diabetes mellitus with hyperglycemia, without long-term current use of insulin (HCC) Take 2 tablets by mouth daily with breakfast. 60 tablet 5 04/10/2025 Active Start: 08-12-2022 End: 12-11-2022 metFORMIN ER (GLUCOPHAGE XR) 500 mg 24 hr tablet Indications: Type 2 diabetes mellitus with hyperglycemia, without long-term current use of insulin (HCC) Take one tablet once daily X 1 week; then increase to twice daily. 60 tablet 1 10/11/2022 12/11/2022 Discontinued Start: 06-22-2022 take 1 tablet by juma th twice daily Metformin 500 mg tablet Active 500 mg PO TWICE A DAY June 22, 2022 12:00am Start: 05-04-2022 End: 06-04-2022 metFORMIN ER (GLUCOPHAGE XR) 500 mg 24 hr tablet Indications: Type 2 diabetes mellitus with hyperglycemia, without long-term current use of insulin (HCC) Take one tablet once daily X 1 week; then increase to twice daily. 60 tablet 1 06/04/2022 Active Comment on above: Take one tablet once daily X 1 week; then increase to twice daily. Take 2 tablets by mo [facility] daily with breakfast. multivitamin tablet (20 sources) Start: 3 take 1 tablet by mouth once daily multivitamin tablet Take 1 tablet by mouth once daily. 0 11/30/2012 Active Comment on above: Take 1 tablet by juma once daily. Multivitamin With Folic Acid (6 sources) Start: 4 take 1 tablet by mouth once daily Multivitamin With Folic Acid Active 1 TABLET PO DAILY February 16, 2014 11:00pm Start: 02-17-2014 take 1 tablet by juma once daily Multivitamin With Folic Acid Active 1 TABLET PO DAILY February 17, 2014 12:00am Multivitamin With Folic Acid 1 TABLET tablet (3 sources) Start: 02-17-2014 take 1 tablet by mouth once daily Multivitamin With Folic Acid 1 TABLET tablet Active 1 {tbl} PO DAILY February 17, 2014 12:00am mupirocin 0.02 mg/mg topical ointment (3 sources) RNA Synthetase Inhibitor Antibacterial Start: 08-16-2024 End: 10-12-2024 mupirocin (BACTROBAN) 2 % ointment Apply twice a day to clean wound for 7 days 15 g 2 08/16/2024 10/12/2024 Active Nystatin / Triamcinolone (6 sources) Polyene Antifungal, Corticosteroid Start: 04-08-2022 Nystatin-Triamcino lone Active 1 APPLIC TOPICAL THREE TIMES A DAY April 07, 2022 11:00pm Start: 04-08-2022 Nystatin-Triam cinolone Active 1 APPLIC TOPICAL THREE TIMES A DAY April 08, 2022 12:00am omeprazole 20 mg delayed release oral capsule (20 sources) Proton Pump Inhibitor Start: 02-17-2014 End: 05-17-2026 take 1 capsule by mouth twice daily omeprazole (PRILOSEC) 20 mg capsule Indications: Hiatal hernia with GERD without esophagitis Take 1 capsule by mouth two times a day. 60 capsule 5 05/17/2025 05/17/2026 Active Start: 02-17-2014 End: 01-15-2023 take 1 capsule by mouth once daily before breakfast omeprazole (PRILOSEC) 20 mg capsule Take 1 capsule by mouth daily before breakfast. 1/2 hr before meal. 30 capsule 11 08/11/2022 01/15/2023 Discontinued Comment on above: Take 1 capsule by mo ut daily before breakfast. 1/2 hr before meal. Take 1 capsule by mo uth twice daily. Take 1 capsule by mo uth two times a day. potassium chloride 10 meq extended release oral tablet (16 sources) Start: 01-30-20 End: 01-30-20 take 1 tablet by mouth once daily potassium chloride (K-TAB) 10 mEq tablet Indications: Hypokalemia Take 1 tablet by mouth once daily. 90 tablet 3 01/29/2025 01/29/2026 Active silver sulfADIAZINE 10 mg/ml topical cream (4 sources) Sulfonamide Antibacterial Start: 02-08-20 End: 02-22-20 silver sulfADIAZINE (SILVADENE) 1 % cream Indications: Sunburn Apply 1 application to affected area once daily for 14 days. 50 g 0 02/08/2024 2024 Active sucralfate 1000 mg oral tablet (20 sources) Aluminum Complex Start: 05-03-20 End: 10-14-19 take 1 tablet by mouth twice daily sucralfate (CARAFATE) 1 gram tablet Indications: Hiatal hernia with GERD without esophagitis Take 1 tablet by mouth two times a day. 180 tablet 1 04/17/2025 10/14/2025 Active Start: 04-04-2024 End: 05-01-2024 take 1 tablet by mouth at bedtime sucralfate (CARAFATE) 1 gram tablet Indications: Hiatal hernia with GERD without esophagitis Take 1 tablet by mouth before meals and at bedtime. 60 tablet 04/04/2024 05/01/2024 Discontinued Start: 10-12-2023 End: 03-05-2024 take 1 tablet by mouth at bedtime sucralfate (CARAFATE) 1 gram tablet Indications: Hiatal hernia with GERD without esophagitis Take 1 tablet by mouth before meals and at bedtime. 60 tablet 0 03/06/2024 Active Comment on above: Take 1 tablet by juma th before meals and at bedtime. tiZANidine 4 mg oral tablet (20 sources) Central alpha-2 Adrenergic Agonist Start: 02-05-2025 End: 05-17-2025 take 1 tablet by mouth every eight hours as needed for muscle spasms tiZANidine (ZANAFLEX) 4 mg tablet Indications: Acute left-sided low back pain with left-sided sciatica Take 1 tablet by mouth every 8 hours as needed (muscle spasms). 30 tablet 1 05/17/2025 Active Start: 04-04-2024 End: 02-01-2025 take 1 tablet by mouth every eight hours as needed for muscle spasms tiZANidine (ZANAFLEX) 4 mg tablet Indications: Acute left-sided low back pain with left-sided sciatica Take 1 tablet by mouth every 8 hours as needed (muscle spasms). 30 tablet 1 09/03/2024 02/01/2025 Discontinued Start: 12-05-2023 take 1 tablet by juma th every eight hours as needed for muscle spasms tiZANidine (ZANAFLEX) 4 mg tablet Indications: Acute left-sided low back pain with left-sided sciatica Take 1 tablet by mouth every 8 hours as needed (muscle spasms). 30 tablet 1 12/05/2023 Active Start: 12-06-2022 End: 12-02-2023 take 1 tablet by mouth every eight hours as needed for muscle spasms tiZANidine (ZANAFLEX) 4 mg tablet Indications: Acute left-sided low back pain with left-sided sciatica Take 1 tablet by mouth every 8 hours as needed (muscle spasms). 30 tablet 1 06/29/2023 12/02/2023 Discontinued Start: 10-21-2021 End: 12-04-2022 take 1 tablet by mouth every eight hours as needed for muscle spasms tiZANidine (ZANAFLEX) 4 mg tablet Indications: Acute left-sided low back pain with left-sided sciatica Take 1 tablet by mouth every 8 hours as needed (muscle spasms). 30 tablet 1 07/27/2022 12/04/2022 Discontinued Comment on above: Take 1 tablet by juma th every 8 hours as needed (muscle spasms). 24 hr venlafaxine 75 mg extended release oral capsule (20 sources) Serotonin and Norepinephrine Reuptake Inhibitor Start: 05-22-2025 venlafaxine ER (EFFEXOR XR) 75 mg 24 hr capsule Take 1 capsule by mouth once daily. For 7 days (with desvenlafaine 25mg.) then stop. 7 capsule 05/22/2025 Active Start: 04-17-2025 End: 05-22-2025 take 1 capsule by mouth once daily venlafaxine ER (EFFEXOR XR) 150 mg 24 hr capsule Indications: Anxiety and depression , Hot flashes Take 1 capsule by mouth once daily. 30 capsule 3 04/17/2025 05/22/2025 Discontinued Start: 06-13-2024 End: 02-19-2025 take 1 capsule by mouth once daily venlafaxine ER (EFFEXOR XR) 150 mg 24 hr capsule Indications: Anxiety and depression , Hot flashes Take 1 capsule by mouth once daily. (Start week #3). 30 capsule 3 02/20/2025 Active Start: 06-13-2024 End: 08-16-2024 venlafaxine ER (EFFEXOR XR) 37.5 mg 24 hr capsule Indications: Anxiety and depression , Hot flashes Week #1: take venlafaxine 37.5 mg with 40 mg of fluoxetine daily. Week #2: take venlafaxine 75 mg with 20 mg of fluoxetine daily. Week #3: increase venlafaxine to 150 mg daily and stop fluoxetine. 21 capsule 06/13/2024 08/16/2024 Discontinued Completed/Discontinued Medications Medication Drug Class(es) Dates Sig (Normalized) Sig (Original) alendronic acid 70 mg oral tablet (20 sources) Bisphosphonate Start: 12-10-2021 End: 08-01-2023 take 1 tablet by mouth every week alendronate (FOSAMAX) 70 mg tablet Indications: Osteoporosis, unspecified osteoporosis type, unspecified pathological fracture presence Take 1 tablet by mouth one time a week. Take with a full glass of water, on an empty stomach; do NOT lie down for 30minutes. 12 tablet 3 06/04/2022 08/01/2023 Discontinued (Other) Comment on above: Take [address] [facility] one time a week. Take with a full glass of water, on an empty stomach; do NOT lie down for 30minutes. benzonatate 100 mg oral capsule (3 sources) Non-narcotic Antitussive Start: 01-28-2025 End: 02-04-2025 take 1 capsule by mouth three times daily as needed for cough benzonatate (TESSALON PERLE) 100 mg capsule Indications: URI, acute Take 1 capsule by mouth three times a day as needed for cough for up to 7 days. 21 capsule 01/28/2025 02/04/2025 cephalexin 500 mg oral capsule (9 sources) Cephalosporin Antibacterial Start: 04-08-2022 End: 04-15-2022 take 1 capsule by mouth three times daily Cephalexin 500 mg capsule Discontinued 500 mg PO THREE TIMES A DAY 01 04April 08, 2022 12:00am April 14, 2022 12:00am April 15, 2022 12:04am space evenly during waking hours 0.4 ml enoxaparin sodium 100 mg/ml prefilled syringe (3 sources) Low Molecular Weight Heparin Start: 07-31-2024 End: 01-05-2025 Enoxaparin (Lovenox) 40 mg/0.4 mL syringe Discontinued 40 mg SC DAILY 2.8 7 July 31, 2024 1:00am January 05, 2025 8:15am fluconazole 150 mg oral tablet (18 sources) Azole Antifungal Start: 2021 End: 06-22-2022 Fluconazole (Diflucan) 150 mg tablet Discontinued 150 mg PO .COMPLEX 2 April 09, 2022 12:00am June 22, 2022 3:22pm 150 mg PO now and in 72 hours FLUoxetine 60 mg oral tablet (20 sources) Serotonin Reuptake Inhibitor Start: 05-28-2024 End: 07-24-2024 take 1 tablet by mouth once daily Fluoxetine 60 mg tablet Discontinued 60 mg PO daily May 28, 2024 12:00am July 24, 2024 11:06am Start: 03-06-2024 End: 04-03-2025 take 1 capsule by mouth once daily FLUoxetine (PROZAC) 40 mg capsule Indications: Anxiety and depression Take 1 capsule by mouth once daily. 30 capsule 5 04/03/2024 06/27/2024 Discontinued Start: 08-01-2023 End: 08-16-2024 take 1 capsule by mouth once daily FLUoxetine (PROZAC) 20 mg capsule Indications: Anxiety and depression Take 1 capsule by mouth once daily. Take with 40 mg dose for total daily dose of 60 mg. 30 capsule 5 04/03/2024 08/16/2024 Discontinued Start: 02-01-2023 End: 02-01-2024 take 1 capsule by mouth once daily FLUoxetine (PROZAC) 40 mg capsule Indications: Anxiety and depression Take 1 capsule by mouth once daily. 30 capsule 11 02/01/2023 Active Start: 12-13-2022 End: 02-01-2023 take 1 capsule by mouth once daily FLUoxetine (PROZAC) 20 mg capsule Indications: Anxiety and depression Take 1 capsule by mouth once daily. 30 capsule 5 12/13/2022 02/01/2023 Discontinued Start: 05-04-2022 End: 12-11-2022 take 1 capsule by mouth once daily FLUoxetine (PROZAC) 20 mg capsule Indications: Anxiety and depression Take 1 capsule by mouth once daily. Start after taking 10 mg for a week. 30 capsule 1 09/08/2022 11/09/2022 Discontinued Start: 05-04-2022 End: 06-14-2022 take 1 capsule by mouth once daily FLUoxetine (PROZAC) 10 mg capsule Indications: Anxiety and depression Take 1 capsule by mouth once daily. X 7 days; then increase to 20 mg daily. 7 capsule 0 06/04/2022 06/14/2022 Discontinued Comment on above: Take 1 capsule by mo ut once daily. X 7 days; then increase to 20 mg daily. Take 1 capsule by mo ut once daily. Start after taking 10 mg for a week. Take 1 capsule by mo [facility] once daily. Take 1 capsule by mo ut once daily. Take with 40 mg dose for total daily dose of 60 mg. goserelin 3.6 mg drug implant (20 sources) Gonadotropin Releasing Hormone Receptor Agonist Start: 04-02-2019 End: 05-24-2023 Goserelin 3.6 mg implant Discontinued 3.6 mg SC Q28D April 02, 2019 12:00am May 24, 2023 1:51pm End: 06-14-2022 GOSERELIN ACETATE (ZOLADEX S UBCUTANEOUS) Inject subcutaneously once every month. 0 06/14/2022 Discontinued GOSERELIN ACETAT E (ZOLADEX SUBCUTANEOUS) Inject subcutaneously once every month. 0 Active Comment on above: Inject subcutaneousl y once every month. ibuprofen 200 mg oral tablet (20 sources) Nonsteroidal Anti-inflammatory Drug End: 5 take 1 tablet by mouth every six hours as needed ibuprofen (ADVIL) 200 mg tablet Take 200 mg by mouth every 6 hours as needed. 05/22/2025 Discontinued Comment on above: Take 200 mg by mouth every 6 hours as needed. letrozole 2.5 mg oral tablet (12 sources) Aromatase Inhibitor Start: 6 End: 3 take 1 tablet by mouth once daily Letrozole 2.5 MG tablet Discontinued 10 mg PO DAILY December 08, 2015 12:00am May 24, 2023 1:51pm Start: 12-08-2015 End: 05-24-2023 take 10 mg by mouth once daily Letrozole Discontinued 10 MG PO DAILY December 07, 2015 11:00pm May 24, 2023 12:51pm Comment on above: Take [address] [facility] once daily. metroNIDAZOLE 500 mg oral tablet (9 sources) Nitroimidazole Antimicrobial Start: 02-23-20 End: 06-22-20 take 1 tablet by mouth twice daily Metronidazole (Flagyl) 500 mg tablet Discontinued 500 mg PO TWICE A DAY 2021 12:00am June 22, 2022 3:22pm multivitamin (DAILY VITAMIN) tablet (11 sources) Start: 12-01-19 13 take 1 tablet by mouth once daily multivitamin (DAILY VITAMIN) tablet Take 1 tablet by mouth once daily. 0 11/30/2012 Active Comment on above: Take 1 tablet by juma once daily. naproxen 500 mg oral tablet (3 sources) Nonsteroidal Anti-inflammatory Drug Start: 11-25-19 24 End: 02-07-20 25 take 1 tablet by mouth twice daily as needed for pain Naproxen 500 mg tablet Discontinued 500 mg PO TWICE A DAY as needed for pain November 25, 2023 12:00am February 06, 2025 8:12pm administer with food or milk norethindrone acetate 5 mg oral tablet (9 sources) Start: 02-18-20 14 End: 02-19-20 14 take 1 tablet by mouth once daily Norethindrone Acetate (Aygestin) 5 MG tablet Discontinued 5 mg PO DAILY February 17, 2014 12:00am February 18, 2014 8:53am Nystatin-Triamcinolon e 100,000-0.1 unit/gram-% ointment (3 sources) Start: 04-08-20 22 End: 05-28-20 24 Nystatin-Triamcinolo ne 100,000-0.1 unit/gram-% ointment Discontinued 1 NMA TOPICAL THREE TIMES A DAY April 08, 2022 12:00am May 28, 2024 1:02pm oxyCODONE hydrochloride 5 mg oral tablet (3 sources) Opioid Agonist Start: 01-06-20 25 End: 02-07-20 25 take 1 tablet by mouth every twelve hours as needed for pain Oxycodone 5 mg tablet Discontinued 5 mg PO Q12H as needed for pain 4 2 January 05, 2025 February 06, 2025 8:12pm polyethylene glycol 3350 [id number] mg / potassium chloride 2970 mg / sodium bicarbonate 6740 mg / sodium chloride 5860 mg / sodium sulfate 20953 mg powder for oral solution (1 source) Osmotic Laxative Start: 02-19-20 End: 02-19-20 peg 3350-Electrolytes (GOLYTELY) 236-22.74-6.74 -5.86 gram suspension Take 4,000 mL by mouth one time only for 1 dose. 1 Each 0 02/18/2023 02/18/2023 Comment on above: Take 4,000 mL by juma th one time only for 1 dose. predniSONE 20 mg oral tablet (3 sources) Start: 01-06-20 End: 02-07-20 take 2 tablets by mouth once daily Prednisone 20 mg tablet Discontinued 40 mg PO DAILY January 05, 2025 12:00am February 06, 2025 8:12pm Problems Active Problems Problem Classification Problem Date Documented Date Episodic/Chronic Abdominal pain (3 sources) Generalized abdominal pain; Translations: [Generalized abdominal pain] Onset: 05-22-2025 05-23-2025 Episodic Anxiety disorders (20 sources) Anxiety; Translations: [Anxiety [...] Onset: 05-04-2022 Chronic Diabetes mellitus without complication (10 sources) Type 2 diabetes mellitus without complication; Translations: [Type 2 diabetes mellitus without complications] Onset: 10-11-2023 Chronic Comment on above: managed with metform in 500mg BID and trulicity Diseases of white blood cells (20 sources) Other drug-induced agranulocytosis; 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] Onset: 12-18-2012 12-18-2012 Chronic Disorders of teeth and jaw (1 source) Toothache; Translations: [Other specified disorders of teeth and supporting structures] Episodic Esophageal disorders (2 sources) Gastro-esophageal reflux disease without esophagitis; Translations: [GERD WITHOUT ESOPHAGITIS] Onset: 07-02-2016 Chronic Essential hypertension (20 sources) Hypertensive disorder; Translations: [Essential (primary) hypertension] Onset: 06-08-2014 06-08-2014 Chronic Immunizations and screening for infectious disease (9 sources) Patient encounter status; Translations: [Encounter for screening for human immunodeficiency virus [HIV]] Episodic Malaise and fatigue (3 sources) Fatigue; Translations: [Other fatigue] Onset: 05-22-2025 05-23-2025 Episodic Menopausal disorders (4 sources) Menopausal syndrome; Translations: [Menopausal and female climacteric states] Onset: 05-28-2024 05-28-2024 Chronic Comment on above: discussed effexor. c onsider switching to this for antidepressant Menstrual disorders (3 sources) Dysmenorrhea; Translations: [Dysmenorrhea, unspecified] 06-26-2024 Chronic Mood disorders (1 source) Mood disorders; Translations: [Anxiety and depression] Onset: 05-04-2022 Nonmalignant breast conditions (3 sources) Fibrocystic changes of bilateral breasts; Translations: [Diffuse cystic mastopathy of right breast] Chronic Osteoporosis (20 sources) Osteoporosis; Translations: [Age-related osteoporosis without current pathological fracture] Onset: 12-10-2021 12-10-2021 Chronic Other aftercare (1 source) Device in situ; Translations: [Encounter for change or removal of drains] 07-19-2024 Episodic Other circulatory disease (2 sources) H/O: hypertension; Translations: [Personal history of other diseases of the circulatory system] 02-06-2025 Episodic Other connective tissue disease (1 source) Right achilles tendonitis; Translations: [Achilles tendinitis, right leg] Episodic Other connective tissue disease (1 source) Fat necrosis; Translations: [Other specified soft tissue disorders] 06-29-2024 Episodic Other connective tissue disease (3 sources) Biceps tendinitis; Translations: [Bicipital tendinitis, right shoulder] 01-05-2025 Episodic Other connective tissue disease (1 source) Pain in right arm; Translations: [Pain in right arm] 02-06-2025 Episodic Other diseases of veins and lymphatics (20 sources) Lymphedema; Translations: [Lymphedema, not elsewhere classified] Onset: 12-16-2014 01-14-2017 Chronic Other diseases of veins and lymphatics (1 source) Lymphedema, not elsewhere classified; Translations: [Lymphedema] Onset: 01-14-2017 Chronic Other female genital disorders (20 sources) Pain in female genitalia on intercourse; Translations: [Unspecified dyspareunia] Onset: 02-04-2017 02-04-2017 Chronic Other female genital disorders (8 sources) Abnormal uterine bleeding; Translations: [Abnormal uterine and vaginal bleeding, unspecified] 10-06-2022 Chronic Comment on above: proceed with ablatio n. not hormonal candidate Other female genital disorders (5 sources) Abnormal uterine and vaginal bleeding, unspecified; Translations: [Unspecified disorders of menstruation and other abnormal bleeding from female genital tract] Onset: 08-27-2024 05-24-2023 Chronic Other female genital disorders (3 sources) Vaginal bleeding; Translations: [Abnormal uterine and vaginal bleeding, unspecified] 06-26-2024 Chronic Comment on above: emb repeated, discus sed options not a hormonal or lysteda candidate due to PE, history of breast CA. recommend demi ablation. need to coordinate with plastic surgery, planned breast reconstruciton jul 08 in [place]. Other inflammatory condition of skin (1 source) Solar erythema; Translations: [Sunburn, unspecified] 02-08-2024 Episodic Other injuries and conditions due to external causes (1 source) Encounter for examination and observation following other accident; Translations: [Encounter for examination and observation following other accident] Onset: 01-09-2025 Episodic Other liver diseases (2 sources) Elevated liver enzymes level; Translations: [Abnormal levels of other serum enzymes] Episodic Other lower respiratory disease (2 sources) Dyspnea on exertion; Translations: [Other forms of dyspnea] 02-06-2025 Episodic Other non-traumatic joint disorders (1 source) [...] nutritional; endocrine; and metabolic disorders (20 sources) Body mass index 40+ - severely obese; Translations: [Morbid (severe) obesity due to excess calories] Onset: 01-15-2023 01-15-2023 Chronic Other nutritional; endocrine; and metabolic disorders (20 sources) Obesity caused by energy imbalance; Translations: [Other obesity due to excess calories] Onset: 12-29-2015 12-29-2015 Chronic Other skin disorders (1 source) Mass of skin of back; Translations: [Localized swelling, mass and lump, trunk] Episodic Other upper respiratory infections (2 sources) Viral sinusitis; Translations: [Chronic sinusitis, unspecified] Onset: 10-15-2024 10-15-2024 Chronic Otitis media and related conditions (1 source) Otitis media of left ear; Translations: [Otitis media, unspecified, left ear] 10-31-2024 Episodic Residual codes; unclassified (3 sources) History of breast reconstruction; Translations: [Other specified postprocedural states] 02-08-2024 Episodic Residual codes; unclassified (3 sources) Flushing; Translations: [Flushing] 06-13-2024 Episodic Residual codes; unclassified (1 source) Postoperative state; Translations: [Other specified postprocedural states] 07-19-2024 Episodic Unclassified (1 source) OPENED IN ERROR Unclassified (11 sources) History of breast cancer 02-19-2021 Comment on above: empower negative. [facility] post partial mastectomy in November 2012, followed by chemotherapy and radiation therapy. Negative genetic testing Unclassified (2 sources) Acute pain of right shoulder 01-28-2025 Past or Other Problems Problem Classification Problem Date Documented Da te Episodic/Chronic Abdominal hernia (20 sources) Gastroesophageal reflux disease with hiatal hernia; Translations: [Diaphragmatic hernia without obstruction or gangrene] Onset: 6 07-02-2016 Episodic Allergic reactions (20 sources) Vulval eczema; Translations: [Dermatitis, unspecified] Onset: 2 Episodic Comment on above: nystatin triamcinolo ne, complete resolution Cancer of breast (20 sources) History of malignant neoplasm of breast; Translations: [Personal history of malignant neoplasm of breast] Onset: 8 Resolved: 1 Episodic Conditions associated with dizziness or vertigo (20 sources) Dizziness and giddiness; Translations: [Dizziness and giddiness] Onset: 8 Resolved: 1 10-24-2020 Episodic Diabetes mellitus without complication (20 sources) Hyperglycemia; Translations: [Hyperglycemia, unspecified] Onset: 2 Resolved: 4 Episodic Fluid and electrolyte disorders (6 sources) Hypokalemia; Translations: [Hypokalemia] Onset: 5 10-16-2024 Episodic Nausea and vomiting (20 sources) Postoperative nausea and vomiting; Translations: [Nausea with vomiting, unspecified] Onset: 4 06-14-2024 Episodic Nonmalignant breast conditions (20 sources) Breast lump; Translations: [Unspecified lump in unspecified breast] Onset: 3 Resolved: 9 04-02-2019 Episodic Nonspecific chest pain (20 sources) Chest pain, unspecified; Translations: [Chest pain] Onset: 8 Resolved: 9 Episodic Other aftercare (1 source) Encounter for follow-up examination after completed treatment for malignant neoplasm; Translations: [Encounter for follow-up surveillance of breast cancer] Onset: 5 Episodic Other connective tissue disease (1 source) Pain in right arm; Translations: [Pain of right upper extremity] Onset: 5 Episodic Other nervous system disorders (1 source) Other acute postprocedural pain; Translations: [Acute postoperative pain] Onset: 4 Episodic Other non-traumatic joint disorders (6 sources) Pain in right shoulder; Translations: [Acute pain of right shoulder] Onset: 5 01-05-2025 Episodic Other upper respiratory infections (5 sources) Acute upper respiratory infection; Translations: [Acute upper respiratory infection, unspecified] Onset: 5 10-31-2024 Episodic Phlebitis; thrombophlebitis and thromboembolism (20 sources) H/O: cardiovascular disease; Translations: [Personal history of other venous thrombosis and embolism] Onset: 8 12-19-2017 Episodic Pulmonary heart disease (20 sources) Pulmonary embolism; Translations: [Other pulmonary embolism without acute cor pulmonale] Onset: 4 Resolved: 3 04-02-2019 Episodic Comment on above: in past while on hor kris. needs lovenox preop and 1 week postop Residual codes; unclassified (20 sources) Family history of ischemic heart disease; Translations: [Family history of ischemic heart disease and other diseases of the circulatory system] Onset: 6 12-29-2015 Episodic Residual codes; unclassified (2 sources) Estrogen receptor positive status [ER+]; Translations: [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eft breast in female, estrogen receptor positive (HCC)] Onset: 7 Episodic Residual codes; unclassified (1 source) Family history of ischemic heart disease and other diseases of the circulatory system; Translations: [Family history of ischemic heart disease] Onset: 6 Episodic Residual codes; unclassified (1 source) Flushing; Translations: [Hot flashes] Onset: 5 Episodic Residual codes; unclassified (1 source) Other specified postprocedural states; Translations: [S/P breast reconstruction] Onset: 4 Episodic Spondylosis; intervertebral disc disorders; other back problems (20 sources) Low back pain; Translations: [Low back pain, unspecified] Onset: 2 06-14-2022 Episodic Urinary tract infections (20 sources) Urinary tract infectious disease; Translations: [Urinary tract infection, site not specified] Onset: 1 Resolved: 4 Episodic Viral infection (1 source) Other viral agents as the cause of diseases classified elsewhere; Translations: [Viral sinusitis] Onset: 5 Episodic Results Test Name Value Interpretation Reference Range Facility [facility] 07-03-2025 [facility] -- SILVIA DIXON ([id number]) 1975 F Date Time Provider Department 07/03/25 2:00 PM SAVITA GRIFFITH During your visit today, we recorded the following information about you: Pulse Respiration Blood pressure 104/minute 16/minute 128/92 Savita Griffith APRN.[employer] 07/03/2025 2:38 PM Signed Start the doxycycline twice daily X 10 days. Watch temperature. (Ideally the antibiotic should be continued for 3 days after temperature resolves). If no improvement/worsening, let us know. Savita Griffith APRN.[employer] 07/04/2025 10:34 AM Signed This is a 50 year old female who presents today with: The patient is a 50-year-old female presenting for evaluation of an erythematous, pruritic rash on the left medial upper arm with associated fever, headache, and nausea following an insect bite. HISTORY OF PRESENT ILLNESS: Silvia is a 50-year-old female presenting with a suspected insect bite on the left upper arm, accompanied by systemic symptoms. Suspected Insect Bite: - Noticed a bite on the left upper arm, medial aspect, just above the antecubital fossa, on Tuesday. - [place] something bite while outside near the garage; did not see the insect. - Applied Cortizone-10 and triple antibiotic ointment with no improvement. - developed a rash superiorly and inferiorly to bite. - No other rashes noted. - advised calling the doctor due to lack of improvement. Systemic Symptoms: - Developed fever, severe headache, and nausea on Tuesday; remained in bed all day. - Symptoms improved on Tuesday, but still experiencing a headache. - Denies similar reactions to previous insect bites. 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 desvenlafaxine ER (PRISTIQ) 25 mg 24 hr tablet Take 1 tablet by mouth once daily. Take with fluoxetine 10 mg daily X 2 weeks. FLUoxetine (PROZAC) 10 mg capsule Take 1 capsule by mouth once daily. Take daily with the desvenlafaxine 25 mg X 2 week, then stop the desvenlafaxine and increase the fluoxetine to 20 mg daily. FLUoxetine (PROZAC) 20 mg capsule Take 1 capsule by mouth once daily. X 2 weeks. Then increase to two pills by mouth daily. omeprazole (PRILOSEC) 20 mg capsule Take 1 capsule by mouth two times a day. tiZANidine (ZANAFLEX) 4 mg tablet Take 1 tablet by mouth every 8 hours as needed (muscle spasms). dulaglutide (TRULICITY) 0.75 mg/0.5 mL pen injector Inject 0.75 mg subcutaneously one time a week. Inject dose once per week. Discard Pen After calcium-cholecalciferol, D3, (OSCAL+D 250) 250 mg-3.125 mcg (125 unit) per tablet Take 1 tablet by mouth two times a day. sucralfate (CARAFATE) 1 gram tablet Take 1 tablet by mouth two times a day. buPROPion SR (WELLBUTRIN SR) 200 mg 12 hr tablet Take 1 tablet by mouth once daily. metFORMIN ER (GLUCOPHAGE XR) 500 mg 24 hr tablet Take 2 tablets by mouth daily with breakfast. hydroCHLOROthiazide 25 mg tablet Take 1 tablet by mouth once daily. losartan (COZAAR) 100 mg tablet Take 1 tablet by mouth once daily. potassium chloride (K-TAB) 10 mEq tablet Take 1 tablet by mouth once daily. Blood-Glucose Sensor (FREESTYLE ALTHEA 3 SENSOR) roney 1 Each as directed. Ascorbate Calcium 500 mg tab Take by mouth. lancets (TRUEPLUS LANCETS) 30 gauge Use with blood glucose test once daily blood sugar diagnostic (TRUE METRIX GLUCOSE TEST STRIP) test strip Use with blood glucose test once daily Blood Pressure Monitor (BLOOD PRESSURE KIT) 1 Each as needed. acetaminophen (TYLENOL) 500 mg tablet Take 1,000 mg by mouth every 8 hours as needed. elderberry fr (more content not included)... Normal [facility]OV[facility] 06-24-2025 CNOV Office Visit ([facility] ) -- SILVIA DIXON ([id number]) 1975 F Date Time Provider Department 06/24/25 2:00 PM SAVITA GRIFFITH [facility] During your visit today, we recorded the following information about you: Pulse Respiration Blood pressure Weight 104/minute 16/minute 128/94 125.6 kg Savita Griffith APRN.[employer] 06/24/2025 2:40 PM Signed Cross-titrate the desvenlafaxine and the fluoxetine. Week 1-2 -- take desvenlafaxine 25 mg and fluoxetine 10 mg. Week 3-4 -- take fluoxetine 20 mg daily. Then increase to fluoxetine 40 mg daily. Recheck in 1 month. Savita Griffith APRN.CNP 06/24/2025 4:53 PM Signed This is a 50 year old female who presents today with: The patient is a 50-year-old female with major depressive disorder, presenting for antidepressant medication management. HISTORY OF PRESENT ILLNESS: Silvia is a 50-year-old female with a history of depression, presenting for evaluation of worsening symptoms after switching from Effexor to Pristiq. Depression: - Recent switch from Effexor 150 mg to Pristiq; reports significant worsening of symptoms. - Describes current state as the "worst I've ever felt in my entire life." - Experiencing increased irritability and frequent crying episodes. - Notable incident of emotional breakdown in front yard. - Reports feeling apathetic; family members have expressed concern. - Current medications include Pristiq. - Previous medications include Zoloft, Cymbalta, Wellbutrin, citalopram, Prozac, and Lexapro. - Zoloft caused weight gain and sedation; Cymbalta was ineffective; Prozac was reportedly beneficial. - Appetite fluctuates between extreme hunger and lack of desire to eat. - Has a home sleep test scheduled. 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 Take with fluoxetine 10 mg daily X 2 weeks. FLUoxetine (PROZAC) 10 mg capsule Take 1 capsule by mouth once daily. Take daily with the desvenlafaxine 25 mg X 2 week, then stop the desvenlafaxine and increase the fluoxetine to 20 mg daily. FLUoxetine (PROZAC) 20 mg capsule Take 1 capsule by mouth once daily. X 2 weeks. Then increase to two pills by mouth daily. omeprazole (PRILOSEC) 20 mg capsule Take 1 capsule by mouth two times a day. tiZANidine (ZANAFLEX) 4 mg tablet Take 1 tablet by mouth every 8 hours as needed (muscle spasms). dulaglutide (TRULICITY) 0.75 mg/0.5 mL pen injector Inject 0.75 mg subcutaneously one time a week. Inject dose once per week. Discard Pen After calcium-cholecalciferol, D3, (OSCAL+D 250) 250 mg-3.125 mcg (125 unit) per tablet Take 1 tablet by mouth two times a day. sucralfate (CARAFATE) 1 gram tablet Take 1 tablet by mouth two times a day. buPROPion SR (WELLBUTRIN SR) 200 mg 12 hr tablet Take 1 tablet by mouth once daily. metFORMIN ER (GLUCOPHAGE XR) 500 mg 24 hr tablet Take 2 tablets by mouth daily with breakfast. hydroCHLOROthiazide 25 mg tablet Take 1 tablet by mouth once daily. losartan (COZAAR) 100 mg tablet Take 1 tablet by mouth once daily. potassium chloride (K-TAB) 10 mEq tablet Take 1 tablet by mouth once daily. Blood-Glucose Sensor (FREESTYLE ALTHEA 3 SENSOR) roney 1 Each as directed. Ascorbate Calcium 500 mg tab Take by mouth. lancets (TRUEPLUS LANCETS) 30 gauge Use with blood glucose test once daily blood sugar diagnostic (TRUE METRIX GLUCOSE TEST STRIP) test strip Use with blood glucose test once daily Blood Pressure Monitor (BLOOD PRESSURE KIT) 1 Each as needed. acetaminophen (TYLENOL) 500 mg tablet Take 1,000 mg by mouth every 8 hours as needed. elderberry fruit (ELDERBERRY ORAL) Take 1,000 (more content not included)... Normal [facility] Basic metabolic 2000 panelon 05-22-2025 Anion gap [Moles/Vol] 13 mmol/L Normal 8-15 [facility] Comment on above: Order Comment: Speci men Type: BLOOD SPECIMENOrdering Facility: [facility] Address: [address] [place] [address] Performed By: #### 2 4321-2 ####[facility] LABCLIA [id number] [place] [address] [place] Calcium [Mass/Vol] 9.8 mg/dL Normal 8.5-10.2 [facility] Comment on above: Order Comment: Speci men Type: BLOOD SPECIMENOrdering Facility: [facility] Address: [address] [place] [address] Performed By: #### 2 4321-2 ####[facility] LABCLIA [id number] [address] [address] [place] Chloride [Moles/Vol] 99 mmol/L Normal 98-107 [facility] Comment on above: Order Comment: Speci men Type: BLOOD SPECIMENOrdering Facility: [facility] Address: [address] [place] [address] Performed By: #### 2 4321-2 ####[facility] LABCLIA [id number] [place] [id number] [place] CO2 [Moles/Vol] 26 mmol/L Normal 22-[address] [facility] Comment on above: Order Comment: Speci men Type: BLOOD SPECIMENOrdering Facility: [facility] Address: [address] [place] [address] Performed By: #### 2 4321-2 ####[facility] LABCLIA [id number] [place] [id number] [place] Creatinine [Mass/Vol] 0.63 mg/dL Normal 0.58-0.96 [facility] Comment on above: Order Comment: Speci men Type: BLOOD SPECIMENOrdering Facility: [facility] Address: [address] [place] [address] Performed By: #### 2 4321-2 ####[facility] LABCLIA [id number] [place] [id number] [place] eGFRcr SerPlBld CKD-EPI 2020 110 mL/min/1.73m??? Normal >=[address] [facility] Comment on above: Order Comment: Speci men Type: BLOOD SPECIMENOrdering Facility: [facility] Address: [address] [place] [address] Result Comment: Glendy mated Glomerular Filtration Rate (eGFR) is calculated using the 2020 CKD-EPI creatinine equation. This equation utilizes serum creatinine, sex, and age as parameters. The creatinine assay has traceable calibration to isotope dilution-mass spectrometry. Refer to KDIGO guidelines for clinical interpretation. In patients with unstable renal function, e.g. those with acute kidney injury, the eGFR may not accurately reflect actual GFR. Performed By: #### 2 4321-2 ####[facility] LABCLIA [id number] [facility] [address] [address] [place] Glucose [Mass/Vol] 83 mg/dL Normal 74-99 [facility] Comment on above: Order Comment: Speci men Type: BLOOD SPECIMENOrdering Facility: [facility] Address: [address] [place] [address] Result Comment: The [place] [employer] (ADA) provides guidance for cutoff values for fasting glucose and random glucose. The ADA defines fasting as no caloric intake for at least 8 hours. Fasting plasma glucose results between 100 to 125 mg/dL indicate increased risk for diabetes (prediabetes). Fasting plasma glucose results greater than or equal to 126 mg/dL meet the criteria for diagnosis of diabetes. In the absence of unequivocal hyperglycemia, results should be confirmed by repeat testing. In a patient with classic symptoms of hyperglycemia or hyperglycemic crisis, random plasma glucose results greater than or equal to 200 mg/dL meet the criteria for diagnosis of diabetes. Reference: Standards of Medical Care in Diabetes 2016, [place] [employer]. Diabetes Care. 2016.39(Suppl 1). Performed By: #### 2 4321-2 ####[facility] LABCLIA [id number] [facility] [address] [address] [place] Potassium [Moles/Vol] 4.0 mmol/L Normal 3.7-5.1 [facility] Comment on above: Order Comment: Speci men Type: BLOOD SPECIMENOrdering Facility: [facility] Address: [address] [place] [id number] Performed By: #### 2 4321-2 ####[facility] LABCLIA [id number] [facility]K [id number] [place] [address] [place] Sodium [Moles/Vol] 138 mmol/L Normal 136-144 [facility] Comment on above: Order Comment: Speci men Type: BLOOD SPECIMENOrdering Facility: [facility] Address: [address] [place] [id number] Performed By: #### 2 4321-2 ####[facility] [id number] [address] STATES OF [facility] Urea nitrogen [Mass/Vol] 8 mg/dL Normal 7-[address] [facility] Comment on above: Order Comment: Speci men Type: BLOOD SPECIMENOrdering Facility: [facility] Address: [address] [place] [phone] Performed By: #### 2 4321-2 ####[facility] LABIA [id number] [place] [id number] [facility] CNOVon 05-22-2025 CNOV Office Visit (MOHINDER ) -- SILVIA DIXON ([id number]) 1975 F Date Time Provider Department 05/22/25 1:00 PM [facility] During your visit today, we recorded the following information about you: Pulse Respiration Blood pressure Weight 98/minute 16/minute 128/86 124.3 kg Savita Griffith APRN.CNP 05/22/2025 1:44 PM Addendum Schedule with general surgery. Let me know if you do not hear from the sleep study people. 3. Cross taper the venlafaxine with the desvenlafaxine. Take venlafaxine 75mg and desvenlafaxine 25 mg X 1 week. Then stop the venlafaxine and increase the desvenlafaxine to 50 mg daily. 4. Recheck in 1 month. Savita Griffith APRN.CNP 05/23/2025 10:14 AM Signed This is a 50 year old female who presents today with: The patient is a 50-year-old female with depression, presenting for evaluation of two weeks of postprandial epigastric pain and bloating and management of worsening depressive symptoms. HISTORY OF PRESENT ILLNESS: Abdominal Pain: - Onset 2 weeks ago. - Pain occurs after eating, accompanied by bloating and cramping. - Silvia describes pain as similar to menstrual cramps. - Silvia avoids eating due to anticipated pain. - Silvia denies recent illness, heartburn, indigestion, diarrhea, constipation, hematochezia, or melena. - Last bowel movement at 0400 today. last colonoscopy in 2022 with a 10-year clearance. Last EGD 2022 -- recommended repeat in 3-5 years. - Taking Carafate and omeprazole BID. Depression: - Worsening mood over the past month. - Increased Wellbutrin to 200 mg daily during last visit. - Silvia reports fatigue, anhedonia, and cognitive difficulties. - Experiencing insomnia, sleeping 3-4 hours per night. - Taking venlafaxine, started last year. - Silvia denies history of sleep apnea; reports snoring. - Irregular menstrual cycles; last period in April, previous in November. Underwent endometrial ablation. 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 For 7 days (with desvenlafaine 25mg.) then stop. desvenlafaxine ER (PRISTIQ) 25 mg 24 hr tablet Take 1 tablet by mouth once daily. Take with venlafaxine 75 mg daily X 1 week, then stop the venlafaxine and increase the desvenlafaxine to 50 mg daily. desvenlafaxine ER (PRISTIQ) 50 mg 24 hr tablet Take 1 tablet by mouth once daily. Start after a week of cross-tapering the venlafaxine and desvenlafaxine). omeprazole (PRILOSEC) 20 mg capsule Take 1 capsule by mouth two times a day. tiZANidine (ZANAFLEX) 4 mg tablet Take 1 tablet by mouth every 8 hours as needed (muscle spasms). dulaglutide (TRULICITY) 0.75 mg/0.5 mL pen injector Inject 0.75 mg subcutaneously one time a week. Inject dose once per week. Discard Pen After calcium-cholecalciferol, D3, (OSCAL+D 250) 250 mg-3.125 mcg (125 unit) per tablet Take 1 tablet by mouth two times a day. sucralfate (CARAFATE) 1 gram tablet Take 1 tablet by mouth two times a day. buPROPion SR (WELLBUTRIN SR) 200 mg 12 hr tablet Take 1 tablet by mouth once daily. metFORMIN ER (GLUCOPHAGE XR) 500 mg 24 hr tablet Take 2 tablets by mouth daily with breakfast. hydroCHLOROthiazide 25 mg tablet Take 1 tablet by mouth once daily. losartan (COZAAR) 100 mg tablet Take 1 tablet by mouth once daily. potassium chloride (K-TAB) 10 mEq tablet Take 1 tablet by mouth once daily. Blood-Glucose Sensor (FREESTYLE ALTHEA 3 SENSOR) roney 1 Each as directed. Ascorbate Calcium 500 mg tab Take by mouth. lancets (TRUEPLUS LANCETS) 30 gauge Use with blood glucose test once daily blood sugar diagnostic (TRUE METRIX GLUCO (more content not included)... Normal [facility] SCREENING W Bienvenido 04-19 DIANE SCREENING W ERNESTO * * *Final Report* * * DATE OF EXAM: Apr 19 2025 2:02PM LDW 0582 - DIANE SCREENING W ERNESTO / PROCEDURE REASON: multiple diagnoses * * * * Physician Interpretation * * * * [place] [id number] #[id number] - DIANE SCREENING W ERNESTO HISTORY: 50 year-old patient presents for screening. No current complaints. The patient has the following personal history of breast cancer: breast cancer in the left breast at age 38. The patient has a family history of breast cancer. COMPARISON STUDIES: The present examination has been compared to prior imaging studies dated 07/14/2021 (mammogram), 07/14/2021 (ultrasound), 04/14/2022 (MRI), 10/27/2022 (mammogram) and 01/20/2024 (mammogram). MAMMOGRAM TECHNIQUE: The study was acquired using full field digital technology and interpreted from soft copy. Digital Breast Tomosynthesis (DBT) images were obtained and used to assist in the interpretation of this examination. MAMMOGRAM FINDINGS: The breast is almost entirely fatty. There are post-operative changes in both breasts. No suspicious masses, calcifications or other abnormalities are seen in either breast. IMPRESSION: There is no mammographic evidence of malignancy. Routine screening mammogram is recommended. Annual mammogram will be due in 1 year. BI-RADS Category 2: Benign RISK: Due to the reported patient's history, the patient's estimated lifetime risk of developing breast cancer cannot be assessed at this time. We encourage all patients to talk with their providers about their risk assessment, further recommendations for managing breast health, and appropriate supplemental screening options if the patient has dense breast tissue. Interpreting Radiologist: Radha Villanueva M.D. Electronically signed on: 04/22/2025 Game Master: PAULA Transcribe Date/Time: Apr 19 2025 1:28P Dictated by : RADHA VILLANUEVA MD This examination was interpreted and the report reviewed and electronically signed by: RADHA VILLANUEVA MD on Apr 22 2025 6:05PM EST [id number] Normal [facility] ALBUMIN/CREATININE RATIO, UR INEon 04-17-2025 Albumin DL <= 20 mg/L (U) [Mass/Vol] 26.1 mg/L Normal [facility] Comment on above: Order Comment: Speci men Type: URINE SPECIMEN [facility] Address: [address] [place] [address] Performed By: #### U ACR #### [facility] CLIA [id number] [address] [place] [address] [place] Albumin/Creatinine (U) [Mass ratio] 15 mg/g Normal <[address] [facility] Comment on above: Order Comment: Speci men Type: URINE SPECIMEN [facility] Address: [address] [place] [address] Result Comment: Adul t Male and Female Nephrotic Criteria: <30 mg/g is considered normal to mildly increased 30-300 mg/g is considered moderately increased >300 mg/g is considered severely increased KDIGO. (2013). KDIGO 2012 Clinical Practice Guideline for the Evaluation and Management of Chronic Kidney Disease. Official Journal of the International Society of Nephrology, 3(1), 1-150. Performed By: #### U ACR #### [facility] CLIA [id number] [address] [place] [address] [place] Creatinine (U) [Mass/Vol] 168.6 mg/dL Normal 20.0-300.[address] [facility] Comment on above: Order Comment: Speci men Type: URINE SPECIMEN [facility] Address: [address] [place] [address] Performed By: #### U ACR #### [facility] CLIA [id number] [address] [place] [address] [place] CBC W Auto Differential pane l (Bld)on 04-17-2025 Basophils (Bld) [#/Vol] 0.05 10*3/uL Normal <0.[address] [facility] Comment on above: Order Comment: Speci men Type: BLOOD SPECIMENOrdering Facility: [facility] Address: [address] [place] [address] Performed By: #### 5 7021-8 ####[facility] LABCLIA [id number] [address], [place] [address] [place] Basophils/100 WBC (Bld) 0.6 % Normal [facility] Comment on above: Order Comment: Speci men Type: BLOOD SPECIMENOrdering Facility: [facility] Address: [address] [place] [address] Performed By: #### 5 7021-8 ####[facility] LABCLIA [id number] [address], [place] [address] [place] Differential cell count method Nom (Bld) Auto Normal [facility] Comment on above: Order Comment: Speci men Type: BLOOD SPECIMENOrdering Facility: [facility] Address: [address] [place] [address] Performed By: #### 5 7021-8 ####[facility] LABCLIA [id number] [place] [address] [place] Eosinophils (Bld) [#/Vol] 0.14 10*3/uL Normal <0.[address] [facility] Comment on above: Order Comment: Speci men Type: BLOOD SPECIMENOrdering Facility: [facility] Address: [address] [place] [address] Performed By: #### 5 7021-8 ####[facility] LABCLIA [id number] [place] [address] [place] Eosinophils/100 WBC (Bld) 1.6 % Normal [facility] Comment on above: Order Comment: Speci men Type: BLOOD SPECIMENOrdering Facility: [facility] Address: [address] [place] [address] Performed By: #### 5 7021-8 ####[facility] LABCLIA [id number] [place] [address] [place] Erythrocyte distribution width (RBC) [Ratio] 14.1 % Normal 11.5-15.[address] [facility] Comment on above: Order Comment: Speci men Type: BLOOD SPECIMENOrdering Facility: [facility] Address: [address] [place] [address] Performed By: #### 5 7021-8 ####[facility] LABIA [id number] [place] [address] [place] Hematocrit (Bld) [Volume fraction] 43.4 % Normal 36.0-46.[address] [facility] Comment on above: Order Comment: Speci men Type: BLOOD SPECIMENOrdering Facility: [facility] Address: [address] [place] [address] Performed By: #### 5 7021-8 ####[facility] LABIA [id number] [place] [address] [place] Hemoglobin (Bld) [Mass/Vol] 14.6 g/dL Normal 11.5-15.[address] [facility] Comment on above: Order Comment: Speci men Type: BLOOD SPECIMENOrdering Facility: [facility] Address: [address] [place] [address] Performed By: #### 5 7021-8 ####[facility] LABIA [id number] [place] [address] [place] Immature granulocytes (Bld) [#/Vol] 0.04 10*3/uL Normal <0.[address] [facility] Comment on above: Order Comment: Speci men Type: BLOOD SPECIMENOrdering Facility: [facility] Address: [address] [place] [address] Performed By: #### 5 7021-8 ####[facility] LABIA [id number] [place] [address] [place] Immature granulocytes/100 WBC (Bld) 0.5 % Normal [facility] Comment on above: Order Comment: Speci men Type: BLOOD SPECIMENOrdering Facility: [facility] Address: [address] [place] [address] Performed By: #### 5 7021-8 ####[facility] LABCLIA [id number] [place] [address] [place] Lymphocytes (Bld) [#/Vol] 3.43 10*3/uL Normal 1.00-4.[address] [facility] Comment on above: Order Comment: Speci men Type: BLOOD SPECIMENOrdering Facility: [facility] Address: [address] [place] [address] Performed By: #### 5 7021-8 ####[facility] LABCLIA [id number] [place] [address] [place] Lymphocytes/100 WBC (Bld) 39.3 % Normal [facility] Comment on above: Order Comment: Speci men Type: BLOOD SPECIMENOrdering Facility: [facility] Address: [address] [place] [address] Performed By: #### 5 7021-8 ####[facility] LABIA [id number] [place] [address] [place] MCH (RBC) [Entitic mass] 29.0 pg Normal 26.0-34.[address] [facility] Comment on above: Order Comment: Speci men Type: BLOOD SPECIMENOrdering Facility: [facility] Address: [address] [place] [address] Performed By: #### 5 7021-8 ####[facility] LABIA [id number] [place] [address] [place] MCHC (RBC) [Mass/Vol] 33.6 g/dL Normal 30.5-36.0 [facility] Comment on above: Order Comment: Speci men Type: BLOOD SPECIMENOrdering Facility: [facility] Address: [address] [place] [address] Performed By: #### 5 7021-8 ####[facility] LABIA [id number] [place] [address] [place] MCV (RBC) [Entitic vol] 86.3 fL Normal 80.0-100.0 [facility] Comment on above: Order Comment: Speci men Type: BLOOD SPECIMENOrdering Facility: [facility] Address: [address] [place] [address] Performed By: #### 5 7021-8 ####[facility] LABCLIA [id number] [facility] [place] [id number] [place] Monocytes (Bld) [#/Vol] 0.56 10*3/uL Normal <0.[address] [facility] Comment on above: Order Comment: Speci men Type: BLOOD SPECIMENOrdering Facility: [facility] Address: [address] [place] [address] Performed By: #### 5 7021-8 ####[facility]CLIA [id number] [facility] [place] [address] [place] Monocytes/100 WBC (Bld) 6.4 % Normal [facility] Comment on above: Order Comment: Speci men Type: BLOOD SPECIMENOrdering Facility: [facility] Address: [address] [place] [address] Performed By: #### 5 7021-8 ####[facility]CLIA [id number] [facility] [place] [address] [place] Neutrophils (Bld) [#/Vol] 4.50 10*3/uL Normal 1.45-7.[address] [facility] Comment on above: Order Comment: Speci men Type: BLOOD SPECIMENOrdering Facility: [facility] Address: [address] [place] [address] Performed By: #### 5 7021-8 ####[facility]CLIA [id number] [facility] [place] [id number] [place] Neutrophils/100 WBC (Bld) 51.6 % Normal [facility] Comment on above: Order Comment: Speci men Type: BLOOD SPECIMENOrdering Facility: [facility] Address: [address] [place] [address] Performed By: #### 5 7021-8 ####[facility]CLIA [id number] [address], [place] [address] [place] Nucleated RBC (Bld) [#/Vol] 10*3/uL Normal <0.[address] [facility] Comment on above: Order Comment: Speci men Type: BLOOD SPECIMENOrdering Facility: [facility] Address: [address] [place] [address] Performed By: #### 5 7021-8 ####[facility]CLIA [id number] [address], [place] [address] [place] Nucleated RBC/100 WBC (Bld) [Ratio] 0.0 /100 WBC Normal [facility] Comment on above: Order Comment: Speci men Type: BLOOD SPECIMENOrdering Facility: [facility] Address: [address] [place] [address] Performed By: #### 5 7021-8 ####[facility]IA [id number] [address], [place] [address] [place] Platelet mean volume (Bld) [Entitic vol] 10.7 fL Normal 9.0-12.[address] [facility] Comment on above: Order Comment: Speci men Type: BLOOD SPECIMENOrdering Facility: [facility] Address: [address] [place] [address] Performed By: #### 5 7021-8 ####[facility] LABCLIA [id number] [place] [id number] [place] Platelets (Bld) [#/Vol] 332 10*3/uL Normal 150-[address] [facility] Comment on above: Order Comment: Speci men Type: BLOOD SPECIMENOrdering Facility: [facility] Address: [address] [place] [address] Performed By: #### 5 7021-8 ####[facility] LABCLIA [id number] [address], [facility]95 [place] RBC (Bld) [#/Vol] 5.03 10*6/uL Normal 3.90-5.20 [facility] Comment on above: Order Comment: Speci men Type: BLOOD SPECIMENOrdering Facility: [facility] Address: [address] [place] [address] Performed By: #### 5 7021-8 ####[facility] LABCLIA [id number] [address] [place] WBC (Bld) [#/Vol] 8.72 10*3/uL Normal 3.70-11.00 [facility] Comment on above: Order Comment: Speci men Type: BLOOD SPECIMENOrdering Facility: [facility] Address: [address] [place] [address] Performed By: #### 5 7021-8 ####[facility] LABCLIA [id number] [address] OF [facility] CNOVon 04-17-2025 [facility] -- SILVIA DIXON ([id number]) 1975 F Date Time Provider Department 04/17/25 3:00 PM [facility] During your visit today, we recorded the following information about you: Pulse Respiration Blood pressure Weight 103/minute 14/minute 120/74 125.3 kg Height 1.676 m Savita Griffith APRN.CAST SHELL GR[employer]ER 04/17/2025 3:33 PM Signed - Increase your bupropion (Wellbutrin) from 150 mg to 200 mg once daily; prescription sent to [facility] pharmacy. - Refills for calcium with vitamin D, Carafate, and Effexor (venlafaxine) have been sent to [facility]. - Continue all your other current medications as prescribed. - Have blood drawn today for potassium level and hemoglobin A1c per the lab orders. - A mammogram order has been placed. - Continue monitoring your blood pressure at home and checking your blood sugar by fingerstick as you have been. - recheck in 1 month to follow-up on medication change. Savita Griffith APRN.CAST SHELL GRINDER 04/17/2025 9:14 PM Signed This is a 50 year old female who presents today with: Silvia Dixon is a 50-year-old female with a history of HTN, DM, depression, and GERD, presenting for a blood pressure check. HISTORY OF PRESENT ILLNESS: Hypertension: - Well-controlled with Losartan and HCTZ. - Home BP readings: 110/70 to 120/80 mmHg. - One elevated reading during a family emergency. - Denies chest pain, palpitations, or peripheral edema. Diabetes Mellitus: - Managed with Trulicity and Glucophage. - Fingerstick glucose readings around 115 mg/dL in the afternoon. - Discontinued continuous glucose monitor due to inaccuracy. - Last A1c in October. - Denies polydipsia, polyuria, or paresthesias. Depression: - Managed with Effexor and Wellbutrin. - Mood is "good" about half the time. - Experiences anhedonia and lack of motivation. - Effexor helps with hot flashes. GERD: - Managed with Prilosec and Carafate. - Symptoms well-controlled. Hypokalemia: - Diagnosed in January by Dr. Zhang; started on potassium supplement. - Missed follow-up blood draw. 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 hydroCHLOROthiazide 25 mg tablet Take 1 tablet by mouth once daily. losartan (COZAAR) 100 mg tablet Take 1 tablet by mouth once daily. tiZANidine (ZANAFLEX) 4 mg tablet Take 1 tablet by mouth every 8 hours as needed (muscle spasms). potassium chloride (K-TAB) 10 mEq tablet Take 1 tablet by mouth once daily. omeprazole (PRILOSEC) 20 mg capsule Take 1 capsule by mouth two times a day. dulaglutide (TRULICITY) 0.75 mg/0.5 mL pen injector Inject 0.75 mg subcutaneously one time a week. Inject dose once per week. Discard Pen After Blood-Glucose Sensor (FREESTYLE ALTHEA 3 SENSOR) roney 1 Each as directed. Ascorbate Calcium 500 mg tab Take by mouth. lancets (TRUEPLUS LANCETS) 30 gauge Use with blood glucose test once daily blood sugar diagnostic (TRUE METRIX GLUCOSE TEST STRIP) test strip Use with blood glucose test once daily Blood Pressure Monitor (BLOOD PRESSURE KIT) 1 Each as needed. ibuprofen (ADVIL) 200 mg tablet Take 200 mg by mouth every 6 hours as needed. acetaminophen (TYLENOL) 500 mg tablet Take 1,000 mg by mouth every 8 hours as needed. elderberry fruit (ELDERBERRY ORAL) Take 1,000 mg by mouth once daily. Blood Pressure Cuff - Home Use BLOOD PRESSURE CUFF FOR HOME USE. DX: LABILE BLOOD PRESSURE ascorbic acid (VITAMIN C) 500 mg tablet Take 500 mg by mouth once daily. multivitamin tablet Take 1 tablet by mouth once daily. calcium-cholecalciferol, D3, (OSCAL+D 250) 250 mg-3.125 mcg (125 unit) (more content not included)... Normal [facility] Comprehensive metabolic 2000 panelon 04-17-2025 Albumin [Mass/Vol] 4.1 g/dL Normal 3.9-4.9 [facility] Comment on above: Order Comment: Speci men Type: BLOOD SPECIMENOrdering Facility: [facility] Address: [address] [place] [address] Performed By: #### 2 4323-8 ####[facility] LABCLIA [id number] [place] [address] [place] ALP [Catalytic activity/Vol] 80 U/L Normal 34-[address] [facility] Comment on above: Order Comment: Speci men Type: BLOOD SPECIMENOrdering Facility: [facility] Address: [address] [place] [address] Performed By: #### 2 4323-8 ####[facility] LABCLIA [id number] [place] [address] [place] ALT [Catalytic activity/Vol] 20 U/L Normal 7-[address] [facility] Comment on above: Order Comment: Speci men Type: BLOOD SPECIMENOrdering Facility: [facility] Address: [address] [place] [address] Performed By: #### 2 4323-8 ####[facility] LABCLIA [id number] [place] [address] [place] Anion gap [Moles/Vol] 16 mmol/L High 8-15 [facility] Comment on above: Order Comment: Speci men Type: BLOOD SPECIMENOrdering Facility: [facility] Address: [address] [place] [address] Performed By: #### 2 4323-8 ####[facility] LABCLIA [id number] [place] [id number] [place] AST [Catalytic activity/Vol] 19 U/L Normal 13-[address] [facility] Comment on above: Order Comment: Speci men Type: BLOOD SPECIMENOrdering Facility: [facility] Address: [address] [place] [id number] Performed By: #### 2 4323-8 ####[facility] LABCLIA [id number] [address] [address] [place] Bilirubin [Mass/Vol] 0.8 mg/dL Normal 0.2-1.3 [facility] Comment on above: Order Comment: Speci men Type: BLOOD SPECIMENOrdering Facility: [facility] Address: [address] [place], [place] [address] Performed By: #### 2 4323-8 ####[facility] LABCLIA [id number] [place] [id number] [place] Calcium [Mass/Vol] 9.9 mg/dL Normal 8.5-10.2 [facility] Comment on above: Order Comment: Speci men Type: BLOOD SPECIMENOrdering Facility: [facility] Address: [address] [place] [address] Performed By: #### 2 4323-8 ####[facility] LABCLIA [id number] [place] [id number] [place] Chloride [Moles/Vol] 101 mmol/L Normal 98-107 [facility] Comment on above: Order Comment: Speci men Type: BLOOD SPECIMENOrdering Facility: [facility] Address: [address] [place], [place] [id number] Performed By: #### 2 4323-8 ####[facility] LABCLIA [id number] [address] [address] [place] CO2 [Moles/Vol] 23 mmol/L Normal 22-[address] [facility] Comment on above: Order Comment: Speci men Type: BLOOD SPECIMENOrdering Facility: [facility] Address: [address] [place], [place] [address] Performed By: #### 2 4323-8 ####[facility] LABCLIA [id number] [address] [address] [place] Creatinine [Mass/Vol] 0.74 mg/dL Normal 0.58-0.96 [facility] Comment on above: Order Comment: Bettina garcia Type: BLOOD SPECIMENOrdering Facility: [facility] Address: [address] [place] [address] Performed By: #### 2 4323-8 ####[facility] LABCLIA [id number] [place] [address] [place] eGFRcr SerPlBld CKD-EPI 2020 100 mL/min/1.73m??? Normal >=[address] [facility] Comment on above: Order Comment: Bettina garcia Type: BLOOD SPECIMENOrdering Facility: [facility] Address: [address] [place] [address] Result Comment: Glendy mated Glomerular Filtration Rate (eGFR) is calculated using the 2020 CKD-EPI creatinine equation. This equation utilizes serum creatinine, sex, and age as parameters. The creatinine assay has traceable calibration to isotope dilution-mass spectrometry. Refer to KDIGO guidelines for clinical interpretation. In patients with unstable renal function, e.g. those with acute kidney injury, the eGFR may not accurately reflect actual GFR. Performed By: #### 2 4323-8 ####[facility] LABCLIA [id number] [place] [address] [place] Glucose [Mass/Vol] 95 mg/dL Normal 74-99 [facility] Comment on above: Order Comment: Bettina garcia Type: BLOOD SPECIMENOrdering Facility: [facility] Address: [address] [place] [address] Result Comment: The [place] Diabetes Association (ADA) provides guidance for cutoff values for fasting glucose and random glucose. The ADA defines fasting as no caloric intake for at least 8 hours. Fasting plasma glucose results between 100 to 125 mg/dL indicate increased risk for diabetes (prediabetes). Fasting plasma glucose results greater than or equal to 126 mg/dL meet the criteria for diagnosis of diabetes. In the absence of unequivocal hyperglycemia, results should be confirmed by repeat testing. In a patient with classic symptoms of hyperglycemia or hyperglycemic crisis, random plasma glucose results greater than or equal to 200 mg/dL meet the criteria for diagnosis of diabetes. Reference: Standards of Medical Care in Diabetes 2016, [place] Diabetes Association. Diabetes Care. 2016.39(Suppl 1). Performed By: #### 2 4323-8 ####[facility] LABCLIA [id number] [address] [address] [place] Potassium [Moles/Vol] 3.6 mmol/L Low 3.7-5.1 [facility] Comment on above: Order Comment: Speci men Type: BLOOD SPECIMENOrdering Facility: [facility] Address: [address] [place] [address] Performed By: #### 2 4323-8 ####[facility] LABCLIA [id number] [address] [address] [place] Protein [Mass/Vol] 7.4 g/dL Normal 6.3-8.0 [facility] Comment on above: Order Comment: Speci men Type: BLOOD SPECIMENOrdering Facility: [facility] Address: [address] [place], [place] [address] Performed By: #### 2 4323-8 ####[facility] LABCLIA [id number] [address] [address] [place] Sodium [Moles/Vol] 140 mmol/L Normal 136-144 [facility] Comment on above: Order Comment: Speci men Type: BLOOD SPECIMENOrdering Facility: [facility] Address: [address] [place], [place] [address] Performed By: #### 2 4323-8 ####[facility] LABCLIA [id number] [address] [address] [place] Urea nitrogen [Mass/Vol] 9 mg/dL Normal 7-[address] [facility] Comment on above: Order Comment: Speci men Type: BLOOD SPECIMENOrdering Facility: [facility] Address: [address] [place], [place] [address] Performed By: #### 2 4323-8 ####[facility] LABCLIA [id number] [place] [id number] [facility] HbA1c (Bld)on 04-17-2025 Average glucose Estimated from glycated hemoglobin (Bld) [Mass/Vol] 120 mg/dL Normal [facility] Comment on above: Order Comment: Bettina garcia Type: BLOOD SPECIMENOrdering Facility: [facility] Address: [address] [place] [address] Result Comment: eAG: (Estimated average glucose) is a calculated value from HgbA1c and is service representative of the average blood glucose level in the last 2-3 month period. Performed By: #### 5 5454-3 ####[facility] LABIA [id number] [address] HbA1c (Bld) [Mass fraction] 5.8 % High 4.3-5.[address] [facility] Comment on above: Order Comment: Bettina garcia Type: BLOOD SPECIMENOrdering Facility: [facility] Address: [address] [place] [address] Result Comment: [place] Diabetes Association guidelines indicate that patients with HgbA1c in the range 5.7-6.4% are at increased risk for development of diabetes, and intervention by lifestyle modification may be beneficial. HgbA1c greater or equal to 6.5% is considered diagnostic of diabetes. Performed By: #### 5 5454-3 ####[facility] LABIA [id number] [place] [id number] [facility] CNOVon 02-15-2025 CNOV Office Visit ([facility] ) -- SILVIA DIXON ([id number]) 1975 F Date Time Provider Department 02/15/25 10:30 AM JACOB CUBA [facility] During your visit today, we recorded the following information about you: Temperature Pulse Respiration Blood pressure 97.3 degrees 103/minute 18/minute 125/87 Weight 127 kg Jacob Cuba APRN.CNP 02/15/2025 11:18 AM Signed [facility] Subjective Silvia Dixon is a 49 year old female. Patient presents with: Sore Throat: Headache, sneezing, runny nose, post nasal drainage, R side swollen lymph node x 4 days Patient came in with complaints of sore throat and headache. Patient stated that symptoms started 4 days ago. Patient reports sneezing, runny nose, post nasal drip, and swollen lymph nodes. Patient states that she has tried tylenol for the headache. Patient states that it hurts to swallow. Patient reports some seasonal allergies and sometimes takes Claritin. Denies fever, chills, sinus pressure, ear pain, and shortness of breath. The history is provided by the patient. No biblical languages professor was used. Sore Throat Associated symptoms include headaches and trouble swallowing. Pertinent negatives include no coughing, ear pain or shortness of breath. Review of Systems Constitutional: Negative. HENT: Positive for postnasal drip, rhinorrhea, sneezing, sore throat and trouble swallowing. Negative for ear pain, sinus pressure and sinus pain. Respiratory: Negative for cough and shortness of breath. Neurological: Positive for headaches. 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 potassium chloride (K-TAB) 10 mEq tablet Take 1 tablet by mouth once daily. omeprazole (PRILOSEC) 20 mg capsule Take 1 capsule by mouth two times a day. sucralfate (CARAFATE) 1 gram tablet Take 1 tablet by mouth two times a day. venlafaxine ER (EFFEXOR XR) 150 mg 24 hr capsule Take 1 capsule by mouth once daily. (Start week #3). losartan (COZAAR) 100 mg tablet Take 1 tablet by mouth once daily. metFORMIN ER (GLUCOPHAGE XR) 500 mg 24 hr tablet Take 2 tablets by mouth daily with breakfast. hydroCHLOROthiazide 25 mg tablet Take 1 tablet by mouth once daily. dulaglutide (TRULICITY) 0.75 mg/0.5 mL pen injector Inject 0.75 mg subcutaneously one time a week. Inject dose once per week. Discard Pen After buPROPion SR (WELLBUTRIN SR) 150 mg 12 hr tablet Take 1 tablet by mouth once daily. Blood-Glucose Sensor (FREESTYLE ALTHEA 3 SENSOR) roney 1 Each as directed. Ascorbate Calcium 500 mg tab Take by mouth. calcium-cholecalciferol, D3, (OSCAL+D 250) 250 mg-3.125 mcg (125 unit) per tablet Take 1 tablet by mouth two times a day. lancets (TRUEPLUS LANCETS) 30 gauge Use with blood glucose test once daily blood sugar diagnostic (TRUE METRIX GLUCOSE TEST STRIP) test strip Use with blood glucose test once daily Blood Pressure Monitor (BLOOD PRESSURE KIT) 1 Each as needed. ibuprofen (ADVIL) 200 mg tablet Take 200 mg by mouth every 6 hours as needed. acetaminophen (TYLENOL) 500 mg tablet Take 1,000 mg by mouth every 8 hours as needed. elderberry fruit (ELDERBERRY ORAL) Take 1,000 mg by mouth once daily. Blood Pressure Cuff - Home Use BLOOD PRESSURE CUFF FOR HOME USE. DX: LABILE BLOOD PRESSURE ascorbic acid (VITAMIN C) 500 mg tablet Take 500 mg by mouth once daily. multivitamin tablet Take 1 tablet by mouth once daily. fluticasone (FLONASE ALLERGY RELIEF) 50 mcg/actuation nasal spray Use 1 spray in each nostril once daily. loratadine (CLARITIN) 10 mg tablet Take 1 tablet by mouth once daily. docusate sodium (COLACE) 100 mg capsule Take 1 capsule by mouth two times a day a (more content not included)... Normal [facility] STREP A MOLECULAR (POC)on Procedural Control Valid [facility] Strep A (POCT) Negative Negative [facility] CNPNon 02-08-2025 CNPN Telephone ([facility]) -- SILVIA DIXON ([id number]) 1975 F Date Time Provider Department 02/08/25 [facility]Y ZHANG [facility] During your visit today, we recorded the following information about you: Allergies As of Date: 02/08/2025 Noted Allergy Reaction NITROFURANTOIN 05/02/2013 4 - Hives 14 - Other: See Comments LISINOPRIL 06/02/2016 3 - Cough PHENAZOPYRIDINE 05/02/2013 4 - Hives 14 - Other: See Comments TORADOL (KETOROLAC TROMETHAMINE) 04/05/2013 4 - Hives Date Reviewed: 02/06/2025 Reviewed by: Chandrika Philip MA - Fully Assessed Prescriptions as of 02/14/2025 - tiZANidine (ZANAFLEX) 4 mg tablet Take 1 tablet by mouth every 8 hours as needed (muscle spasms). - potassium chloride (K-TAB) 10 mEq tablet Take 1 tablet by mouth once daily. - omeprazole (PRILOSEC) 20 mg capsule Take 1 capsule by mouth two times a day. - sucralfate (CARAFATE) 1 gram tablet Take 1 tablet by mouth two times a day. - venlafaxine ER (EFFEXOR XR) 150 mg 24 hr capsule Take 1 capsule by mouth once daily. (Start week #3). - losartan (COZAAR) 100 mg tablet Take 1 tablet by mouth once daily. - metFORMIN ER (GLUCOPHAGE XR) 500 mg 24 hr tablet Take 2 tablets by mouth daily with breakfast. - hydroCHLOROthiazide 25 mg tablet Take 1 tablet by mouth once daily. - dulaglutide (TRULICITY) 0.75 mg/0.5 mL pen injector Inject 0.75 mg subcutaneously one time a week. Inject dose once per week. Discard Pen After - buPROPion SR (WELLBUTRIN SR) 150 mg 12 hr tablet Take 1 tablet by mouth once daily. - Blood-Glucose Sensor (FREESTYLE ALTHEA 3 SENSOR) roney 1 Each as directed. - Ascorbate Calcium 500 mg tab Take by mouth. - docusate sodium (COLACE) 100 mg capsule Take 1 capsule by mouth two times a day as needed for constipation. - calcium-cholecalciferol, D3, (OSCAL+D 250) 250 mg-3.125 mcg (125 unit) per tablet Take 1 tablet by mouth two times a day. - lancets (TRUEPLUS LANCETS) 30 gauge Use with blood glucose test once daily - blood sugar diagnostic (TRUE METRIX GLUCOSE TEST STRIP) test strip Use with blood glucose test once daily - Blood Pressure Monitor (BLOOD PRESSURE KIT) 1 Each as needed. - ibuprofen (ADVIL) 200 mg tablet Take 200 mg by mouth every 6 hours as needed. - acetaminophen (TYLENOL) 500 mg tablet Take 1,000 mg by mouth every 8 hours as needed. - elderberry fruit (ELDERBERRY ORAL) Take 1,000 mg by mouth once daily. - Blood Pressure Cuff - Home Use BLOOD PRESSURE CUFF FOR HOME USE. DX: LABILE BLOOD PRESSURE - ascorbic acid (VITAMIN C) 500 mg tablet Take 500 mg by mouth once daily. - multivitamin tablet Take 1 tablet by mouth once daily. 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*12/13/2012 Drug induced neutropenia [D70.2] 12/18/2012 Other pulmonary embolism and infarction [I26.99]02/20/2014 10/24/2020 Pulmonary embolism (HCC) [I26.99] 02/21/2014 01/15/2023 HTN (hypertension) [I10] Anxiety and depression [F41.9, F32.A] Lymphedema [I89.0] 12/16/2014 Family history of ischemic heart disease [Z82.4*12/29/2015 Obesity due to excess calories [E66.09] 12/29/2015 Hiatal hernia with GERD without esophagitis [K4*07/02/2016 Morbid obesity due to excess calories (HCC) [E6*12/31/2016 Dyspareunia in female [N94.10] 02/04/2017 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*03/31/2017 Personal history of malignant neoplasm of breas*12/19/2017 10/24/2020 Personal history of other venous thrombosis and*12/19/2017 Personal history of pulmonary embolism [Z86.711]12/19/2017 Dizziness and giddiness [R42] 12/19/2017 10/24/2020 Chest pain [R07.9] 12/19/2017 04/02/2019 Osteoporosis [M81.0] 12/10/2021 Hyperglycemia [R73.9] 12/10/2021 06/14/2024 Type 2 diabetes mellitus with hyperglycemia, wi*05/04/2022 Dermatitis of vulva [L30.9] 06/14/2022 Low back pain, unspecified [M54.50] 09/28/2021 Urinary tract infection [N39.0] 01/28/2021 06/14/2024 Obesity, Class III, BMI >= 40 [E66.813] 01/15/2023 PONV (postoperative nausea and vomiting) [R11.2*06/14/2024 Encounter Status:Closed by ELOY BARROW on 02/14/25 [facility] 12 Lead EKGon 02-07-2025 12 Lead EKG [facility] [address] [place] [address] 12 Lead EKG 02/06/25 2140 MR#: [id number] Acct: [id number] Name: SILVIA DIXON Rep #: [id number] : 1975 49 From: Angel Burger MD Attending Dr: Dr. Nilo Hidalgo DO Status : DIS LEONORA Ordering Dr: Cristopher Tavera MD Date: 02/07/25 Location: [facility] Sex: F C Admitted: 02/06/25 Test Reason : CP ADMIT Blood Pressure : */* mmHG Vent. Rate : 88 BPM Atrial Rate : 88 BPM P-R Int : 152 ms QRS Dur : 94 ms QT Int : 376 ms P-R-T Axes : 21 -12 15 degrees QTcB Int : 454 ms Normal sinus rhythm Moderate voltage criteria for LVH, may be normal variant ( R in aVL , Christine product ) Borderline ECG When compared with ECG of 06-Feb-2025 15:09, MANUAL COMPARISON REQUIRED DATA IS UNCONFIRMED Confirmed by ANGEL BURGER ([id number]), pictures editor BRANDIN VIEIRA ([id number]) on 02/11/2025 8:14:15 AM Referred By: DR TAVERA Confirmed By: ANGEL BURGER 02/11/25 0814 Date Angel Burger MD CC: Dr. Nilo Hidalgo DO; Dr. Cristopher Tavera MD; Dr. Randy Zhang MD Signed Normal [facility] [facility] Gl[facility] 02-07-2025 FINGERSTICK GLU 106 mg/dL Normal 74-106 [facility] Comment on above: Result Comment: BARAK GEMENT OF PATIENT CARE PER NURSING PROTOCOL Performed By: #### L 501.080 #### [facility] Laboratory [address] [place], [address] Calculated very low density lipoprotein (VLDL) cholesterol measurementOrdered By: Cristopher Tavera on 02-07-2025 Calculated very low density lipoprotein (VLDL) cholesterol measurement 42 mg/dL High 5-40 [facility] Cardiovascular stress test r eportOrdered By: Angel Burger on 02-07-2025 Study report [facility] [address] [place] [address] MR#: [id number] Acct: [id number] Name: SILVIA DIXON Rep #: [id number] : 1975 49 From: Angel Burger MD Primary Care: Dr. Randy Zhang MD Status : ADM LEONORA Referring Dr: Sex: F C Stress Test Report Pharmacologic/Lexiscan myocardial perfusion stress test. Indication; patient had symptoms of chest pain, history of PE with negative CTA chest. Cardiac workup with a series of high sensitive troponins were within normal. Patient was very anxious and having chest pain and was admitted for observation and evaluation by nuclear stress test. Stress protocol: Resting EKG demonstrates. Normal sinus rhythm. 0.4 mg of regadenoson was infused per usual protocol followed by rapid intravenous saline flush injection continuous EKG monitoring was performed. Themaximum heart rate attained was 106 bpm which was 61% of maximum predicted heart. Stress EKG showed[, no significant change from the resting EKG, with maximum heart rate of 106bpm. Arrhythmia: No arrhythmia demonstrated Symptoms: Patient had no symptoms of chest pain Blood pressure at rest: [132/62 blood pressure at the end of stress: 124/62] Myocardial perfusion protocol. [15 mCi ]of Technetium 99m Sestamibi was injected at rest. [ 0.4 mg ]of Regadenoson was infused per usual protocol peak infusion[44.7 mCi ]of Hlckkkrela12i sestamibi was injected. Stress images were obtained stress and rest images were reconstructed and compared in the short axis vertical and horizontal long axis. Gated images were also obtained Perfusion SPECT analysis: Review of the images demonstrate normal uptake of sestamibi at rest, post stress images demonstrate similar uptake of sestamibi to the resting images, homogeneous tracer uptake With no evidence of reversible myocardial ischemia. Gated SPECT analysis: The gated ejection fraction is 68%. Normal LV wall motion, with normal LV systolic function Conclusion: Negative Lexiscan sestamibi, study with normal myocardial perfusion And normal LV systolic function. Angel Burger MD,[facility] 02/07/25 1212 Date _ Angel Burger MD CC: Dr. Nilo Hidalgo, DO; Dr. Cristopher Tavera MD; Dr. Steven Reyes MD; Dr. Randy Zhang MD ~ Date Dictated: 02/07/251203 Date Transcribed: 02/07/251203 Game Master: COLTEN Akins [facility] Work Phone: Discharge Instructionon 01-11 Discharge Instruction [facility] Medical Records Department [address] [place] [address] Instructions for Home/Discharge Instructions 02/07/25 1301 MR#: [id number] Acct: [id number] Name: SILVIA DIXON Rep #: [id number] : 1975 49 From: Nilo Hidalgo DO PCP: Dr. Randy Zhang MD Status:ADM LEONORA Discharge Instructions Diet Discharge Diet: No restrictions DC O2, CPAP, BIPAP needs Home O2 Discharge instructions: No Dressing / Incision Discharge Activity: No Restrictions Follow Up Care Test Results: Test results from this visit will be discussed in further detail at your follow-up appointment, if applicable. Discharge Plan Admission Admit Date/Time: 02/06/25 20:22 Primary Reason for Your Visit: chest pain Attending Provider: Nilo Hidalgo Primary Care Provider: Randy Zhang Consulting Providers: Cristopher Tavera Discharge Orders/Prescriptions Prescriptions: Continued ascorbate calcium (vitamin C) 500 mg tablet 500 mg PO DAILY sucralfate [Carafate] 1 gram tablet 1 g PO BID omeprazole 20 MG capsule 20 mg PO BID Patient Comments: acid reflux multivitamin with folic acid 1 TABLET tablet 1 tab PO DAILY Trulicity 0.75 mg/0.5 mL pen injector 0.75 mg subcut QWEEK metformin 500 mg tablet extended release 24 hr 1,000 mg PO DAILY venlafaxine 150 mg capsule,extended release 24hr 150 mg PO DAILY bupropion HCl 150 mg tablet sustained-release 12 hr 150 mg PO DAILY hydrochlorothiazide 25 mg tablet 25 mg PO DAILY losartan 100 mg tablet 100 mg PO DAILY calcium carbonate-vitamin D3 250 mg-3.125 mcg (125 unit) tablet 1 tab PO BID Referrals / Follow Up: Randy Zhang MD [Primary Care Provider] - Disposition Disposition (needs filled in before D/C Order can be placed): Home, Self Care 02/07/25 1302 Nilo Hidalgo DO CC: Dr. Cristopher Tavera MD; Dr. Randy Zhang MD Signed Normal [facility] deOrdered By: Nilo Hidalgo on 02-07-2025 Glucose [Mass/Vol] 106 mg/dL 74-106 [facility] Comment on above: MANAGEMENT OF PATIEN T CARE PER NURSING PROTOCOL LDL calc ser/plasOrdered By: Cristopher Tavera on 02-07-2025 Cholesterol in LDL [Mass/Vol] 96 mg/dL [facility] Comment on above: Hvumcvahka=554-905 m g/dL & Higher Lwhu=778 mg/dL or greater Lipid Profileon 02-07-2025 CHOL:HDL 4.07 Normal [facility] Comment on above: Performed By: #### L 500.4100 #### [facility] Laboratory [address] [place], [address] (351) Cholesterol [Mass/Vol] 183 mg/dL Normal <=200 [facility] Comment on above: Result Comment: Chol esterol level, Desirable <200 mg/dL Borderline high cholesterol 200-239 mg/dL High cholesterol >=240 mg/dL Recommendations of the NCEP Adult Treatment Panel for the following risk-cutoff thresholds for the [place] population. Performed By: #### L 500.4100 #### [facility] Laboratory [address] [place], [place], [id number] Cholesterol in HDL [Mass/Vol] 45 mg/dL Normal [facility] Comment on above: Result Comment: Cherie onal Cholesterol Education Program (NCEP) guidelines: <40 mg/dL: Low HDL-cholesterol (major risk factor for CHD) >= 60 mg/dL: High HDL-cholesterol (negative risk factor for CHD) HDL-cholesterol is affected by a number of factors, e.g. smoking, exercise, hormones, sex and age. Performed By: #### L 500.4100 #### [facility] Laboratory [address] [place], [address] (178) Cholesterol in LDL [Mass/Vol] 96 mg/dL Normal [facility] Comment on above: Result Comment: Bord vykbul=118-749 mg/dL Higher Zdqs=541 mg/dL or greater Performed By: #### L 500.4100 #### [facility] Laboratory [address] [place], [place], [id number] Cholesterol in VLDL [Mass/Vol] 42 mg/dL High 5-40 [facility] Comment on above: Performed By: #### L 500.4100 #### [facility] Laboratory [address] [place], [place], [id number] Triglyceride [Mass/Vol] 212 mg/dL High [facility] Comment on above: Result Comment: The drugs N-Acetylcysteine and Metamizole may falsely depress this assay. Normal range: <150 mg/dL Borderline High: 150-199 mg/dL High: 200-499 mg/dL Very High: >500 mg/dL Performed By: #### L 500.4100 #### [facility] Laboratory [address] [place], [place], [id number] Screening total cholesterol/ high density lipoprotein (HDL) cholesterol ratioOrdered By: Cristopher Tavera on 02-07-2025 Cholesterol.total/Choles terol in HDL [Mass ratio] 4.07 {ratio} [facility] Serum or plasma cholesterol in HDL measurement (mass/volume)Ordered By: Cristopher Tavera on 02-07-2025 Cholesterol in HDL [Mass/Vol] 45 mg/dL >40 [facility] Comment on above: National Cholesterol Education Program (NCEP) guidelines:<40 mg/dL: Low HDL-cholesterol (major risk factor for CHD)>= 60 mg/dL: High HDL-cholesterol (negative risk factor for CHD)HDL-cholesterol is affected by a number of factors, e.g. smoking, exercise, hormones, sex and age. Serum or plasma cholesterol measurement (mass/volume)Ordered By: Cristopher Tavera on 02-07-2025 Cholesterol [Mass/Vol] 183 mg/dL <201 [facility] Comment on above: Cholesterol level, D esirable <200 mg/dLBorderline high cholesterol 200-239 mg/dLHigh cholesterol >=240 mg/dLRecommendations of the NCEP Adult Treatment Panel for the following risk-cutoff thresholds for the [place] population. Stress Reporton 02-07-2025 Stress Report [facility] Cardiovascular Services [address] [place] [address] MR#: [id number] Acct: [id number] Name: SILVIA DIXON Rep #: [id number] : 1975 49 From: Angel Burger MD Primary Care: Dr. Randy Zhang MD Status: ADM LEONORA Referring Dr: Sex: F C Stress Test Report Pharmacologic/Lexiscan myocardial perfusion stress test. Indication; patient had symptoms of chest pain, history of PE with negative CTA chest. Cardiac workup with a series of high sensitive troponins were within normal. Patient was very anxious and having chest pain and was admitted for observation and evaluation by nuclear stress test. Stress protocol: Resting EKG demonstrates. Normal sinus rhythm. 0.4 mg of regadenoson was infused per usual protocol followed by rapid intravenous saline flush injection continuous EKG monitoring was performed. The maximum heart rate attained was 106 bpm which was 61% of maximum predicted heart . Stress EKG showed[, no significant change from the resting EKG, with maximum heart rate of 106bpm. Arrhythmia: No arrhythmia demonstrated Symptoms: Patient had no symptoms of chest pain Blood pressure at rest: [132/62 blood pressure at the end of stress: 124/62] Myocardial perfusion protocol. [15 mCi ]of Technetium 99m Sestamibi was injected at rest. [ 0.4 mg ]of Regadenoson was infused per usual protocol peak infusion[44.7 mCi ]of Technetium 99m sestamibi was injected. Stress images were obtained stress and rest images were reconstructed and compared in the short axis vertical and horizontal long axis. Gated images were also obtained Perfusion SPECT analysis: Review of the images demonstrate normal uptake of sestamibi at rest, post stress images demonstrate similar uptake of sestamibi to the resting images, homogeneous tracer uptake With no evidence of reversible myocardial ischemia. Gated SPECT analysis: The gated ejection fraction is 68%. Normal LV wall motion, with normal LV systolic function Conclusion: Negative Lexiscan sestamibi, study with normal myocardial perfusion And normal LV systolic function. Angel Burger MD,[facility] 02/07/25 1212 Date Angel Burger MD CC: Dr. Nilo Hidalgo DO; Dr. Cristopher Tavera MD; Dr. Steven Reyes MD; Dr. Randy Zhang MD Date Dictated: 02/07/25 120 Date Transcribed: 02/07/251203 Game Master: FB Signed Normal [facility] Triglycerides measurementOrd ered By: Cristopher Tavera on 02-07-2025 Triglyceride [Mass/Vol] 212 mg/dL High <199 [facility] Comment on above: The drugs N-Acetylcy steine and Metamizole may falsely depress this assay. Normal range: <150 mg/dLBorderline High: 150-199 mg/dLHigh: 200-499 mg/dLVery High: >500 mg/dL 12 Lead EKGon 02-06-2025 12 Lead EKG [facility] Cardiovascular Services [address] [place] [address] 12 Lead EKG 02/07/25 0511 MR#: [id number] Acct: [id number] Name: SILVIA DIXON Rep #: [id number] : 1975 49 From: Angel Burger MD Attending Dr: Dr. Nilo Hidalgo DO Status : DIS LEONORA Ordering Dr: Cristopher Tavera MD Date: 02/06/25 Location: [facility] Sex: F C Admitted: 02/06/25 Test Reason : PRE OP Blood Pressure : */* mmHG Vent. Rate : 77 BPM Atrial Rate : 77 BPM P-R Int : 148 ms QRS Dur : 94 ms QT Int : 410 ms P-R-T Axes : 16 -13 17 degrees QTcB Int : 463 ms Normal sinus rhythm Minimal voltage criteria for LVH, may be normal variant ( R in aVL ) Borderline ECG When compared with ECG of 06-Feb-2025 21:40, MANUAL COMPARISON REQUIRED DATA IS UNCONFIRMED Confirmed by ANGEL BURGER ([id number]), pictures editor BRANDIN VIEIRA ([id number]) on 02/11/2025 8:13:51 AM Referred By: LIANG Confirmed By: ANGEL BURGER 02/11/25 0813 Date Angel Burger MD CC: Dr. Nilo Hidalgo DO; Dr. Cristopher Tavera MD; Dr. Randy Zhang MD Signed [facility] 12 Lead EKG [facility] Cardiovascular Services [address] [facility] [facility] [address] 12 Lead EKG 02/06/25 1509 MR#: [id number] Acct: [id number] Name: SILVIA DIXON Rep #: [id number] : 1975 49 From: Angel Burger MD Attending Dr: Dr. Nilo Hidalgo DO Status : DIS LEONORA Ordering Dr: Steven Reyes MD Date: 02/06/25 Location: [facility] Sex: F C Admitted: 02/06/25 Test Reason : SOB Blood Pressure : */* mmHG Vent. Rate : 99 BPM Atrial Rate : 99 BPM P-R Int : 144 ms QRS Dur : 92 ms QT Int : 372 ms P-R-T Axes : 34 0 47 degrees QTcB Int : 477 ms Poor data quality, interpretation may be adversely affected Normal sinus rhythm Normal ECG Confirmed by ANGEL BURGER ([id number]), pictures editor BRANDIN VIEIRA ([id number]) on 02/11/2025 7:29:20 AM Referred By: Confirmed By: ANGEL BURGER 02/11/25 0729 Date Angel Burger MD CC: Dr. Nilo Hidalgo DO; Dr. Steven Reyes MD; Dr. Randy Zhang MD Signed [facility] Absolute lymphocyte countOrd ered By: Steven Reyes on 02-06-2025 Lymphocytes Auto (Unsp spec) [#/Vol] 3.25 10*3/uL 0.83-4.51 [facility] Absolute neutrophil countOrd ered By: Stevensusanne Reyes on 02-06-2025 Neutrophils (Bld) [#/Vol] 4.2 10*3/uL 2.0-7.7 [facility] Anion gap in Serum or Plasma Ordered By: Stevensusanne Reyes on 02-06-2025 Anion gap [Moles/Vol] 14 mmol/L - [facility] Automated lymphocyte count a s percentage of total leukocytesOrdered By: Stevensusanne Reyes on 02-06-2025 Lymphocytes/100 WBC Auto (Unsp spec) 39.4 % [facility] BUN/creatinine ratioOrdered By: [facility] on 02-06-2025 Urea nitrogen/Creatinine [Mass ratio] 13.0 mg/mg - [facility] Basic Metabolic Profile (BMP )on 02-06-2025 BUN/CRE 13.0 RATIO Normal - [facility] Comment on above: Order Comment: This specimen has been REJECTED due to Laboratory criteria:Quanity Not Sufficient.MOI ORANTES has been notified of need of recollection.02/06/25 1609 Sneha Lollo Performed By: #### L 499.0043 #### [facility] Laboratory [address] [place], [place], [id number] Calcium [Mass/Vol] 9.7 mg/dL Normal 7.6-11.0 [facility] Comment on above: Order Comment: This specimen has been REJECTED due to Laboratory criteria:Quanity Not Sufficient.MOI ORANTES has been notified of need of recollection.02/06/25 1609 Sneha Lollo Performed By: #### L 499.0043 #### [facility] Laboratory [address] [place], [address] Chloride [Moles/Vol] 102 mmol/L Normal 98-108 [facility] Comment on above: Order Comment: This specimen has been REJECTED due to Laboratory criteria:Quanity Not Sufficient.MOI ORANTES has been notified of need of recollection.02/06/25 1609 Sneha Lollo Performed By: #### L 499.0043 #### [facility] Laboratory [address] [place], [place], [phone] (548) CO2 [Moles/Vol] 23.0 mmol/L Normal 21.0-32.0 [facility] Comment on above: Order Comment: This specimen has been REJECTED due to Laboratory criteria:Quanity Not Sufficient.CATHYJayro ORANTES has been notified of need of recollection.02/06/25 1609 Sneha Lollo Performed By: #### L 499.0043 #### [facility] Laboratory [address] [place], [address] Creatinine [Mass/Vol] 0.69 mg/dL Low 0.70-1.20 [facility] Comment on above: Order Comment: This specimen has been REJECTED due to Laboratory criteria:Quanity Not Sufficient.MOI ORANTES has been notified of need of recollection.02/06/25 1609 Sneha Lollo Performed By: #### L 499.0043 #### [facility] Laboratory [address] [place], [place], [address] (685) ECRCL 137.25 ml/min Normal 50-250 [facility] Comment on above: Order Comment: This specimen has been REJECTED due to Laboratory criteria:Quanity Not Sufficient.MOI ORANTES has been notified of need of recollection.02/06/25 1609 Sneha Lollo Performed By: #### L 499.0043 #### [facility] Laboratory [address] [place], [address] GAP 14 Normal 5-15 [facility] Comment on above: Order Comment: This specimen has been REJECTED due to Laboratory criteria:Quanity Not Sufficient.CATHYJayro ORANTES has been notified of need of recollection.02/06/25 1609 Sneha Lollo Performed By: #### L 499.0043 #### [facility] Laboratory [address] [place], [place], [phone] (673) GFR/1.73 sq M.predicted among non-blacks MDRD (S/P/Bld) [Vol rate/Area] 108 mL/min/{1.73_m2} Normal >60 [facility] Comment on above: Order Comment: This specimen has been REJECTED due to Laboratory criteria:Quanity Not Sufficient.CATHYJayro ORANTES has been notified of need of recollection.02/06/25 1609 Sneha Lollo Result Comment: mL/m in/1.73m2 CKD-EPI Creatinine Equation (2020) Performed By: #### L 499.0043 #### [facility] Laboratory [address] [place], [address] Glucose [Mass/Vol] 111 mg/dL High 70-99 [facility] Comment on above: Order Comment: This specimen has been REJECTED due to Laboratory criteria:Quanity Not Sufficient.MOI ORANTES has been notified of need of recollection.02/06/25 1609 Sneha Lollo Performed By: #### L 499.0043 #### [facility] Laboratory [address] [place], [address] Potassium [Moles/Vol] 3.5 mmol/L Normal 3.3-5.1 [facility] Comment on above: Order Comment: This specimen has been REJECTED due to Laboratory criteria:Quanity Not Sufficient.MOI ORANTES has been notified of need of recollection.02/06/25 1609 Sneha Lollo Performed By: #### L 499.0043 #### [facility] Laboratory [address] [place], [address] Sodium [Moles/Vol] 138 mmol/L Normal 133-145 [facility] Comment on above: Order Comment: This specimen has been REJECTED due to Laboratory criteria:Quanity Not Sufficient.MOI ORANTES has been notified of need of recollection.02/06/25 1609 Sneha Lollo Performed By: #### L 499.0043 #### [facility] Laboratory [address] [place], [address] Urea nitrogen [Mass/Vol] 9 mg/dL Normal 4-19 [facility] Comment on above: Order Comment: This specimen has been REJECTED due to Laboratory criteria:Quanity Not Sufficient.MOI ORANTES has been notified of need of recollection.02/06/25 1609 Sneha Paige Performed By: #### L 499.0043 #### [facility] Laboratory [address] [place], [address] Basophil percentageOrdered B y: Stevensusanne Reyes on 02-06-2025 Basophils/100 WBC (Bld) 0.7 % 0-1 [facility] CBC W/Diff, Automatedon 01-11 Absolute Lymph 3.25 X10 3/uL Normal 0.83-4.51 [facility] Comment on above: Performed By: #### L 499.0043 #### [facility] Laboratory [address] [place], [address] Absolute Neut 4.2 X10 3/uL Normal 2.0-7.7 [facility] Comment on above: Performed By: #### L 499.0043 #### [facility] Laboratory [address] [place], [address] Basophils/100 WBC (Bld) 0.7 % Normal 0-1 [facility] Comment on above: Performed By: #### L 499.0043 #### [facility] Laboratory [address] [place], [address] Eosinophils/100 WBC (Bld) 1.8 % Normal 0-5 [facility] Comment on above: Performed By: #### L 499.0043 #### [facility] Laboratory [address] [place], [address] Erythrocyte distribution width (RBC) [Ratio] 13.7 % Normal 11.6-14.6 [facility] Comment on above: Performed By: #### L 499.0043 #### [facility] Laboratory [address] [place], [address] Hematocrit (Bld) [Volume fraction] 42.2 % Normal 37-47 [facility] Comment on above: Performed By: #### L 499.0043 #### [facility] Laboratory [address] [place], [address] Hemoglobin (Bld) [Mass/Vol] 14.2 g/dL Normal 12.0-15.0 [facility] Comment on above: Performed By: #### L 499.0043 #### [facility] Laboratory [address] [place], [address] IG% 0.500 Normal 0.0-0.9 [facility] Comment on above: Result Comment: IG% - Immature Granulocytes (promyelocytes, myelocytes and metamyelocytes) > 1% indicates that a LEFT SHIFT is Present. Performed By: #### L 499.0043 #### [facility] Laboratory [address] [place], [address] Lymphocytes/100 WBC (Bld) 39.4 % Normal 19-41 [facility] Comment on above: Performed By: #### L 499.0043 #### [facility] Laboratory [address] [place], [address] MCH (RBC) [Entitic mass] 29.0 pg Normal 27.0-32.0 [facility] Comment on above: Performed By: #### L 499.0043 #### [facility] Laboratory [address] [place], [address] MCHC (RBC) [Mass/Vol] 33.6 g/dL Normal 32-36 [facility] Comment on above: Performed By: #### L 499.0043 #### [facility] Laboratory [address] [place], [address] MCV (RBC) [Entitic vol] 86.3 fL Normal 81-99 [facility] Comment on above: Performed By: #### L 499.0043 #### [facility] Laboratory [address] [place], [address] Monocytes/100 WBC (Bld) 7.3 % Normal 0-10 [facility] Comment on above: Performed By: #### L 499.0043 #### [facility] Laboratory [address] [place], [address] Neutrophils/100 WBC (Bld) 50.3 % Normal 47-70 [facility] Comment on above: Performed By: #### L 499.0043 #### [facility] Laboratory [address] [place], [address] Nucleated RBC (Bld) [#/Vol] 0 10*3/uL Normal 0-5 [facility] Comment on above: Performed By: #### L 499.0043 #### [facility] Laboratory [address] [place], [address] Platelet mean volume (Bld) [Entitic vol] 9.7 fL Normal 6.2-12.0 [facility] Comment on above: Performed By: #### L 499.0043 #### [facility] Laboratory [address] [place], [address] Platelets (Bld) [#/Vol] 331 10*3/uL Normal 150-450 [facility] Comment on above: Performed By: #### L 499.0043 #### [facility] Laboratory [address] [place], [address] RBC (Bld) [#/Vol] 4.89 10*6/uL Normal 4.2-5.4 [facility] Comment on above: Performed By: #### L 499.0043 #### [facility] Laboratory [address] [place], [address] RDW SD 42.9 fl Normal 35.1-43.9 [facility] Comment on above: Performed By: #### L 499.0043 #### [facility] Laboratory [address] [place], [address] WBC (Bld) [#/Vol] 8.3 10*3/uL Normal 4.4-11.0 [facility] Comment on above: Performed By: #### L 499.0043 #### [facility] Laboratory [address] [place], [address] CNOVon 02-06-2025 CNOV Office Visit (FAMPWS ) -- SILVIA DIXON ([id number]) 1975 F Date Time Provider Department 02/06/25 2:00 PM ARNDY ZHANG [facility] During your visit today, we recorded the following information about you: Pulse Blood pressure Weight Height 116/minute 114/78 126.7 kg 1.676 m Randy Zhang MD 02/06/2025 2:25 PM Signed Patient presents with: Arm Pain HPI: Patient presents today for office visit for follow up for persistent right upper arm pain. Was seen in office back on 01/28/25 with complaints of severe right upper arm pain. Refers today to pain feeling like previous blood clot. Some swelling to inside of elbow that comes and goes. Area is painful to touch. Arm may be slightly red. . Had a PE in 2014. Feels similar to that. Has pain that radiates up into the chest. Is more winded. Not necessarily pleuritic. No cough. No travel recently. Was on anticoagulation for a year. See note 01/28/25: Complains today of severe right upper arm pain. Started after lifting a microwave. No bruising or swelling after. Ongoing X 1 month. Describes pain as a squeezing. Comes and goes. Sensation to back side of arm when touched. "Feels weird" Was seen in [facility] ER 01/05/25 for this issue. X-rays negative. Given prednisone and oxycodone with no relief at all. Given PT exercises which she states did not help. No numbness or tingling. Has been sick for 5 days. Complains of being nauseous with a stuffy nose. Some coughing. Has a migraine that she states started today. My throat kind of hurts Denies fever. No shortness of breath. and son are ill. Mild ear discomfort. No vomiting or diarrhea. Using mucinex prn. No covid test. Was to recheck her potassium after her last labs but did not. MEDICATIONS: Current Outpatient Medications Medication Sig tiZANidine (ZANAFLEX) 4 mg tablet Take 1 tablet by mouth every 8 hours as needed (muscle spasms). potassium chloride (K-TAB) 10 mEq tablet Take 1 tablet by mouth once daily. omeprazole (PRILOSEC) 20 mg capsule Take 1 capsule by mouth two times a day. sucralfate (CARAFATE) 1 gram tablet Take 1 tablet by mouth two times a day. venlafaxine ER (EFFEXOR XR) 150 mg 24 hr capsule Take 1 capsule by mouth once daily. (Start week #3). losartan (COZAAR) 100 mg tablet Take 1 tablet by mouth once daily. metFORMIN ER (GLUCOPHAGE XR) 500 mg 24 hr tablet Take 2 tablets by mouth daily with breakfast. hydroCHLOROthiazide 25 mg tablet Take 1 tablet by mouth once daily. dulaglutide (TRULICITY) 0.75 mg/0.5 mL pen injector Inject 0.75 mg subcutaneously one time a week. Inject dose once per week. Discard Pen After buPROPion SR (WELLBUTRIN SR) 150 mg 12 hr tablet Take 1 tablet by mouth once daily. Blood-Glucose Sensor (FREESTYLE ALTHEA 3 SENSOR) roney 1 Each as directed. Ascorbate Calcium 500 mg tab Take by mouth. docusate sodium (COLACE) 100 mg capsule Take 1 capsule by mouth two times a day as needed for constipation. calcium-cholecalciferol, D3, (OSCAL+D 250) 250 mg-3.125 mcg (125 unit) per tablet Take 1 tablet by mouth two times a day. lancets (TRUEPLUS LANCETS) 30 gauge Use with blood glucose test once daily blood sugar diagnostic (TRUE METRIX GLUCOSE TEST STRIP) test strip Use with blood glucose test once daily Blood Pressure Monitor (BLOOD PRESSURE KIT) 1 Each as needed. ibuprofen (ADVIL) 200 mg tablet Take 200 mg by mouth every 6 hours as needed. acetaminophen (TYLENOL) 500 mg tablet Take 1,000 mg by mouth every 8 hours as needed. 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, invasive metaplastic carcinoma [...] 03/29/2023 EGD 03/29/2023 [facility] TUNNELED CTR VAD W/S (more content not included)... Normal [facility] CTA Chest W/WO Contraston CTA Chest W/WO Contrast [facility] Imaging Services [address] [place] [address] [id number] CTA Chest W/WO Contrast MR#: [id number] Acct: [id number] Name: SILVIA DIXON Rep #: [id number] : 1975 F 49 From: Danya Grimm DO PCP: Dr. Randy Zhang MD Status: REG ER Study: CTA Chest W/WO Contrast Date of Exam: 02/06/25 Exam# [id number] Ordering Dr: Steven Reyes MD PROCEDURE: CTA CHEST W/WO CONTRAST 02/06/2025 REASON FOR EXAM: DYSPNEA WITH EXERTION, HISTORY OF PE TECHNIQUE: CTA axial imaging of the chest with intravenous contrast. Multiplanar and multisequence images were obtained. 3D post processing was performed PATIENT PREPARATION: Per protocol CONTRAST: Isovue 370 VOLUME: 98 mL Not Provided Gauge IV One or more dose reduction techniques were used (e.g., Automated exposure control, adjustment of the mA and/or kV according to patient size, use of iterative reconstruction technique). RADIATION DOSE SUMMARY: CTDlvol: 32 mGy DLP: 564 mGycm . COMPARISON: None FINDINGS: Hardware: None Lymph nodes: No lymphadenopathy. Heart: Heart size is normal. No pericardial effusion. RV/LV Diameter Ratio: Thoracic Aorta: No thoracic aortic aneurysm or dissection. Pulmonary Vessels: No large central pulmonary emboli are identified. Contrast timing is suboptimal for evaluation of more distal branches. Most Proximal Level of Embolus (if embolus present): Lungs and Airways: The lungs are normally expanded and clear. Pleura: No pleural effusion. No pneumothorax. Upper Abdomen: Visualized portions of the upper abdominal viscera are unremarkable. Bones: Bone windows are unremarkable. CT/CTA Chest W/WO Contrast IMPRESSION: LIMITED. NO LARGE CENTRAL PULMONARY EMBOLI. Reading [facility] CC: Dr. Steven Reyes MD; Dr. Randy Zhang MD Game Master: Signed Normal [facility] Carbon dioxide, total [Moles /volume] in Central venous bloodOrdered By: Steven Reyes on 02-06-2025 CO2 [Moles/Vol] 23.0 mmol/L 21.0-32.0 [facility] Chest PA and Lateralon 02-06 Chest PA and Lateral [facility] Imaging Services [address] [place] [address] Chest PA and Lateral MR#: [id number] Acct: [id number] Name: SILVIA IDXON Rep #: [id number] : 1975 F 49 From: Kenrick Jamison MD PCP: Dr. Randy Zhang MD Status: REG ER Study: Chest PA and Lateral Date of Exam: 02/06/25 Exam# [id number] Ordering Dr: Steven Reyes MD EXAM: XR Chest, 2 Views CLINICAL INDICATION: CHEST PAIN TECHNIQUE: Frontal and lateral views of the chest. COMPARISON: No relevant prior studies available. FINDINGS: LUNGS AND PLEURAL SPACES: Unremarkable. No consolidation. No pneumothorax. HEART: Unremarkable. No cardiomegaly. MEDIASTINUM: Unremarkable. Normal mediastinal contour. BONES/JOINTS: Unremarkable. No acute fracture. RAD/Chest PA and Lateral IMPRESSION: No acute cardiopulmonary process. Reading Location: [facility] CC: Dr. Steven Reyes MD; Dr. Randy Zhang MD Game Master: Signed Normal [facility] Chloride assayOrdered By: Kirill Reyes on 02-06-2025 Chloride [Moles/Vol] 102 mmol/L 98-108 [facility] D-Dimer Quantitative (DVT/PE )on 02-06-2025 D-DIMER QUANT < 0.27 Low 0.27-0.49 [facility] Comment on above: Result Comment: NORM AL D-Dimer level (<0.50) indicates no DVT or PE. Performed By: #### L 300.8000 ####[facility] [id number] [facility] [place], [address] Emergency Department Summary on 02-06-2025 Emergency Department Summary [facility] Medical Records Department [address] [place] [address] Emergency Department Summary 02/06/25 MR#: [id number] Acct: [id number] Name: SILVIA DIXON Rep #: [id number] : 1975 49 From: Steven Reyes MD PCP: Dr. Randy Zhang MD Status:REG ER Location: ED HPI History of Present Illness Chief Complaint: Upper Extremity Injury Detail of Chief Complaint: Patient presented because of right upper extremity pain per triage. HPI na Informant: patient Occured/Mechanism Comment: Patient having exertional dyspnea, chest pressure and right arm discomfort Onset/Context/Timing Onset: Days (Symptoms started 2 days ago) Context: Sudden Onset Timing: Intermittent Quality of Pain: - (The right upper extremity is achy and has chest pressure) Location: Right medial and right arm Current Severity: Gone Maximum Severity: Moderate Worsened by: Activity, walking up an incline Relieved by: 5 to 10 minutes after resting Associated Symptoms Associated Symptoms: Negative for Parasthesia, Weakness or Loss of Funtion Narrative Narrative: Patient is a 49-year-old woman. She has history of hypertension since 2011, type 2 diabetes for the past 3 years who presents with right arm pain per triage. Patient concern is that she has had shortness of breath with activity for the past 2 days. She does experience chest pressure with the activity. The chest pressure resolves after she rest. Takes approximately 10 minutes to resolve. She does report pain radiating to her right upper extremity and through to her back. Her past history is also remarkable for DVT and PE. She is present on no anticoagulant. She has no known history of coronary artery disease. There is no record of stress test. Patient denies orthopnea or PND. Patient denies leg pain, swelling discoloration. She denies nausea, vomiting or diarrhea. She denies abdominal pain. She denies pleuritic chest pain. Patient has allergy to ketorolac. She has taken aspirin in the past with no reaction. Prior similar symptoms: No Recent Illness/Hospitalization: No PFSH PFSH Medical History Wears contact lenses Wears glasses Cancer Depression Anxiety Arthritis Migraine headache History of hiatal hernia Gastric reflux Non-smoker History of stress test History of echocardiogram Hypertension Diabetes Leg pain Anxiety and depression History of breast cancer Pulmonary embolism Home Medications ???Medication ???Instructions ???Recorded ???Last Taken ???Type multivitamin with folic acid 400 1 tab PO DAILY 02/17/14 01/05/25 H istory mcg tablet omeprazole 20 mg capsule,delayed 20 mg PO BID 02/17/14 01/05/25 His tory release dulaglutide 1.5 mg/0.5 mL 1.5 mg subcut QWEEK 06/22/2201/02 History subcutaneous pen injector (Trulicity) metformin 500 mg tablet 500 mg PO BID 06/22/22 01/05/25 Hi story ascorbate calcium (vitamin C) 500 500 mg PO DAILY 05/24/23 01/05/25 History mg tablet naproxen 500 mg tablet 500 mg PO BID PRN pain #30 tabs Unknown Rx sucralfate 1 gram tablet (Carafate) 1 g PO BID 05/28/24 01/05/25 Hi story bupropion HCl 150 mg tablet,12 hr 150 mg PO DAILY 07/24/24 01/05/25 History sustained-release calcium 250 mg (as 1 tab PO BID 07/24/24 01/05/25 His tory carbonate)-vitamin D3 3.125 mcg (125 unit) tablet hydrochlorothiazide 25 mg tablet 25 mg PO DAILY 07/24/24 01/05/25 H istory losartan 100 mg tablet 100 mg PO DAILY 07/24/24 01/05/25 History venlafaxine 150 mg 150 mg PO DAILY 07/24/24 01/05/25 History capsule,extended release 24 hr oxycodone 5 mg tablet 5 mg PO Q12H PRN pain 2 days #4 Unknown Rx tabs prednisone 20 mg tablet 40 mg (2 x 20 mg) PO DAILY #10 tab s 01/05/25 Unknown Rx Allergy/AdvReac Type Severity Reaction Status Date / Time ketorolac tromethamine (From Allergy Hives Verified 02/06/25 14:40 Toradol) nitrofurantoin Allergy Hives Verified 02/06/25 14:40 Family History Mother A-fib CVA (cerebral vascular accident) Father A-fib Grandmother Breast cancer Surgical History S/P endometrial ablation Hx of bilateral breast reduction surgery History of bilateral breast reduction surgery Hx of tubal ligation History of lumpectomy History of mastectomy Social History number of children: 2 current occupational status: unemployed Smoking Status: Never smoker alcohol intake: never substance use type: does not use caffeine: Yes what type of physical activity do you participate in: walking seatbelt use: always do you feel safe at home: Yes additional social history: Karlos- (more content not included)... Normal [facility] Eosinophil percentageOrdered By: Steven Reyes on 02-06-2025 Eosinophils/100 WBC (Bld) 1.8 % 0-5 [facility] Erythrocyte distribution wid th ratioOrdered By: Steven Reyes on 02-06-2025 Erythrocyte distribution width (RBC) [Ratio] 13.7 % 11.6-14.6 [facility] Erythrocyte distribution wid th standard deviationOrdered By: Steven Reyes on 02-06-2025 Erythrocyte distribution width (RBC) [Ratio] 42.9 fl 35.1-43.9 [facility] Glomerular filtration rate ( GFR) estimation/1.73 sq m using serum, plasma, or whole bOrdered By: Steven Reyes on 02-06-2025 GFR/1.73 sq M.predicted among non-blacks MDRD (S/P/Bld) [Vol rate/Area] 108 mL/min/{1.73_m2} >60 [facility] Comment on above: mL/min/1.73m2 CKD-EP I Creatinine Equation (2020) H AND P Exam - [facility] 02-06-2025 H&P Exam - Hospitalist [facility] Medical Records Department [address] [place] [address] H P Exam - Hospitalist 02/06/252021 MR#: [id number] Acct: [id number] Name: SILVIA DIXON Rep #: [id number] : 1975 49 From: Cristopher Tavera MD PCP: Dr. Randy Zhang MD Status:ADM LEONORA Location: [place] [address] HPI - General General Date of Admission: 02/06/25 HPI Narrative SILVIA DIXON, is a 49 F who presents to the hospital with chest pain/pressure that started about 2 days ago. She noticed it more with activity and that it would resolve with rest. She was concerned because it felt like her previous PE that she had in 2013. That 1 was provoked while being on a control pill and driving in [place]. She is no longer on anticoagulation. D-dimer was negative and a CTA was still obtained which was also negative for a large PE. Initial troponins were unremarkable, all 3 were less than 6 however she is fairly anxious about her chest pain and would like to stay overnight. Will plan for a stress test in the morning. She does state that the pain radiates down her right arm. [facility] Medical History Wears contact lenses Wears glasses Cancer Depression Anxiety Arthritis Migraine headache History of hiatal hernia Gastric reflux Non-smoker History of stress test History of echocardiogram Hypertension Diabetes Leg pain Anxiety and depression History of breast cancer Pulmonary embolism Home Medications ???Medication ???Instructions ???Recorded ???Last Taken ???Type multivitamin with folic acid 400 1 tab PO DAILY 02/17/14 01/05/25 H istory mcg tablet omeprazole 20 mg capsule,delayed 20 mg PO BID 02/17/14 01/05/25 His tory release metformin 500 mg tablet 500 mg PO BID 06/22/22 01/05/25 Hi story ascorbate calcium (vitamin C) 500 500 mg PO DAILY 05/24/23 01/05/25 History mg tablet sucralfate 1 gram tablet (Carafate) 1 g PO BID 05/28/24 01/05/25 Hi story bupropion HCl 150 mg tablet,12 hr 150 mg PO DAILY 07/24/24 01/05/25 History sustained-release calcium 250 mg (as 1 tab PO BID 07/24/24 01/05/25 His tory carbonate)-vitamin D3 3.125 mcg (125 unit) tablet hydrochlorothiazide 25 mg tablet 25 mg PO DAILY 07/24/24 01/05/25 H istory losartan 100 mg tablet 100 mg PO DAILY 07/24/24 01/05/25 History venlafaxine 150 mg 150 mg PO DAILY 07/24/24 01/05/25 History capsule,extended release 24 hr dulaglutide 0.75 mg/0.5 mL 0.75 mg subcut QWEEK 02/06/2501/11 History subcutaneous pen injector (Trulicity) metformin 500 mg tablet,extended 500 mg PO BID 02/06/25 Unknown His tory release 24 hr Allergy/AdvReac Type Severity Reaction Status Date / Time ketorolac tromethamine (From Allergy Hives Verified 02/06/25 14:40 Toradol) nitrofurantoin Allergy Hives Verified 02/06/25 14:40 Family History Mother A-fib CVA (cerebral vascular accident) Father A-fib Grandmother Breast cancer Surgical History S/P endometrial ablation Hx of bilateral breast reduction surgery History of bilateral breast reduction surgery Hx of tubal ligation History of lumpectomy History of mastectomy Social History number of children: 2 current occupational status: unemployed Smoking Status: Never smoker alcohol intake: never substance use type: does not use caffeine: Yes what type of physical activity do you participate in: walking seatbelt use: always do you feel safe at home: Yes 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 Constitutional Constitutional: Denies chills, fatigue, fever(s) or malaise Eyes Eyes: Denies blurry vision ENT HEENT: Denies headache(s) or nasal discharge Cardiovascular Cardiovascular: Reports chest pain and dyspnea on exertion; Denies syncope Respiratory/Chest Respiratory/Chest: Denies cough, shortness of breath at rest or shortness of breath with exertion Gastrointestinal Gastrointestinal: Denies constipation, diarrhea, nausea or vomiting Genitourinary Genitourinary: Denies dysuria Neurologic Neurologic: Denies focal weakness, numbness or tremor(s) Psychiatric Psychiatric: Denies anxiety or depression Vital Signs Vital Signs Vital Signs: 02/06/25 14:40 02/06/25 14:52 02/06/25 16:35 Temperature 97.6 F L Temperature Source Oral Pulse Rate 119 H 103 H Respiratory Rate 20 H 23 H Respiratory Effort Short of Breath Blood Pressure 177/114 H Blood Pressure Mean 135 Pulse Ox 97 95 Oxygen Delivery Method Room Air 02/06/25 16:39 02/06/25 17:00 02/06/25 17:30 Temperature Temperatur (more content not included)... Normal [facility] Hematocrit Auto (Bld) [Volum e fraction]Ordered By: Steven Reyes on 02-06-2025 Hematocrit (Bld) [Volume fraction] 42.2 % 37-47 [facility] Hemoglobin measurementOrdere d By: Steven Reyes on 02-06-2025 Hemoglobin (Bld) [Mass/Vol] 14.2 g/dL 12.0-15.0 [facility] Immature granulocytes/100 WB C Auto (Bld)Ordered By: Steven Reyes on 02-06-2025 Immature granulocytes/100 WBC (Bld) 0.500 % 0.0-0.9 [facility] Comment on above: IG% - Immature Granu locytes (promyelocytes, myelocytes and metamyelocytes) > 1% indicates that a LEFT SHIFT is Present. L499.0042on 02-06-2025 Trop T High Sen < 6 Normal <=14 [facility] Comment on above: Performed By: #### L 499.0043 #### [facility] Laboratory [address] [place], [address] L499.0043on 02-06-2025 Trop T High Sen < 6 Normal <=14 [facility] Comment on above: Performed By: #### L 499.0043 #### [facility] Laboratory [address] [place], [address] L501.4021on 02-06-2025 Trop T High Sen < 6 Normal <=14 [facility] Comment on above: Order Comment: This specimen has been REJECTED due to Laboratory criteria:Quanity Not Sufficient.MOI ORANTES has been notified of need of recollection.02/06/25 1609 Sneha Paige Performed By: #### L 499.0043 #### [facility] Laboratory [address] [place], [address] MCV (mean corpuscular volume ) determinationOrdered By: Steven Reyes on 02-06-2025 MCV (RBC) [Entitic vol] 86.3 fL 81-99 [facility] Mean corpuscular hemoglobin (MCH) determinationOrdered By: Steven Reyes on 02-06-2025 MCH (RBC) [Entitic mass] 29.0 pg 27.0-32.0 [facility] Mean corpuscular hemoglobin concentration (MCHC) determinationOrdered By: Stevensusanne Reyes on 02-06-2025 MCHC (RBC) [Mass/Vol] 33.6 g/dL 32-36 [facility] Mean platelet volume determi nationOrdered By: Steven Reyes on 02-06-2025 Platelet mean volume (Bld) [Entitic vol] 9.7 fL 6.2-12.0 [facility] Monocyte percentageOrdered B y: Steven Reyes on 02-06-2025 Monocytes/100 WBC (Bld) 7.3 % 0-10 [facility] Neutrophil percentageOrdered By: Stevensusanne Reyes on 02-06-2025 Neutrophils/100 WBC (Bld) 50.3 % 47-70 [facility] Nucleated red blood cell per centageOrdered By: Steven Reyes on 02-06-2025 Nucleated RBC/100 WBC (Bld) [Ratio] 0 % 0-5 [facility] Platelet countOrdered By: susanne Reyes on 02-06-2025 Platelets (Bld) [#/Vol] 331 10*3/uL 150-450 [facility] Potassium measurement (mass/ volume)Ordered By: Steven Reyes on 02-06-2025 Potassium (Unsp spec) [Mass/Vol] 3.5 mmol/L 3.3-5.1 [facility] RBC Auto (Bld) [#/Vol]Ordere d By: Steven Reyes on 02-06-2025 RBC (Bld) [#/Vol] 4.89 10*6/uL 4.2-5.4 [facility] Serum creatinine measurement (mass/volume)Ordered By: Steven Reyes on 02-06-2025 Creatinine [Mass/Vol] 0.69 mg/dL Low 0.70-1.20 [facility] Serum glucose measurement (m ass/volume)Ordered By: Steven Reyes on 02-06-2025 Glucose [Mass/Vol] 111 mg/dL High 70-99 [facility] Serum or plasma calcium paco urement (mass/volume)Ordered By: Steven Reyes on 02-06-2025 Calcium [Mass/Vol] 9.7 mg/dL 7.6-11.0 [facility] Serum or plasma urea nitroge n measurement (mass/volume)Ordered By: Steven Reyes on 02-06-2025 Urea nitrogen [Mass/Vol] 9 mg/dL 4-19 [facility] Sodium levelOrdered By: Steven Reyes on 02-06-2025 Sodium [Moles/Vol] 138 mmol/L 133-145 [facility] Troponin T.cardiac [Mass/vol ume] in Serum or Plasma by High sensitivity methodOrdered By: Steven Reyes on 02-06-2025 Troponin T.cardiac High sensitivity method [Mass/Vol] < 6 ng/L <14 [facility] Troponin T.cardiac High sensitivity method [Mass/Vol] < 6 ng/L <14 [facility] Troponin T.cardiac High sensitivity method [Mass/Vol] < 6 ng/L <14 [facility] White blood cell (WBC) count Ordered By: Steven Reyes on 02-06-2025 WBC (Bld) [#/Vol] 8.3 10*3/uL 4.4-11.0 [facility] CNOVon 01-28-2025 [facility] Office Visit (FAMPWS ) -- SILVIA DIXON ([id number]) 1975 F Date Time Provider Department 01/28/25 2:00 PM RANDY ZHANG During your visit today, we recorded the following information about you: Temperature Pulse Blood pressure Weight 97.8 degrees 103/minute 120/88 126.6 kg Height 1.676 m Randy Zhang MD 01/28/2025 2:24 PM Signed Patient presents with: Arm Pain acute illness HPI: Patient presents today for office visit for multiple concerns. Complains today of severe right upper arm pain. Started after lifting a microwave. No bruising or swelling after. Ongoing X 1 month. Describes pain as a squeezing. Comes and goes. Sensation to back side of arm when touched. "Feels weird" Was seen in [facility] ER 01/05/25 for this issue. X-rays negative. Given prednisone and oxycodone with no relief at all. Given PT exercises which she states did not help. No numbness or tingling. Has been sick for 5 days. Complains of being nauseous with a stuffy nose. Some coughing. Has a migraine that she states started today. My throat kind of hurts Denies fever. No shortness of breath. and son are ill. Mild ear discomfort. No vomiting or diarrhea. Using mucinex prn. No covid test. Was to recheck her potassium after her last labs but did not. Latest Ref Rng 10/15/2024 WBC 3.70 - 11.00 k/uL 10.17 RBC 3.90 - 5.20 m/uL 5.14 Hemoglobin 11.5 - 15.5 g/dL 14.4 Hematocrit 36.0 - 46.0 % 45.1 MCV 80.0 - 100.0 fL 87.7 MCH 26.0 - 34.0 pg 28.0 MCHC 30.5 - 36.0 g/dL 31.9 RDW-CV 11.5 - 15.0 % 13.8 Platelet Count 150 - 400 k/uL 282 MPV 9.0 - 12.7 fL 10.5 Neut% % 57.6 Abs Neut (ANC) 1.45 - 7.50 k/uL 5.86 Lymph% % 34.4 Abs Lymph 1.00 - 4.00 k/uL 3.50 Swain% % 5.6 Abs Swain <0.87 k/uL 0.57 Eosin% % 1.2 Abs Eosin <0.46 k/uL 0.12 Baso% % 0.8 Abs Baso <0.11 k/uL 0.08 Immature Gran % % 0.4 IMMATURE GRANS (ABS) <0.10 k/uL 0.04 NRBC /100 WBC 0.0 Absolute nRBC <0.01 k/uL <0.01 DTYPE Auto Protein, Total 6.3 - 8.0 g/dL 7.6 Albumin 3.9 - 4.9 g/dL 4.1 Calcium 8.5 - 10.2 mg/dL 10.0 Bilirubin, Total 0.2 - 1.3 mg/dL 0.7 Alkaline Phosphatase 34 - 123 U/L 78 AST 13 - 35 U/L 16 ALT 7 - 38 U/L 21 Glucose 74 - 99 mg/dL 100 (H) BUN 7 - 21 mg/dL 8 Creatinine 0.58 - 0.96 mg/dL 0.65 Sodium 136 - 144 mmol/L 137 Potassium 3.7 - 5.1 mmol/L 3.4 (L) Chloride 98 - 107 mmol/L 99 CO2 22 - 30 mmol/L 27 Anion Gap 8 - 15 mmol/L 11 eGFR >=60 mL/min/1.73m? 109 Total Cholesterol, Nonfasting <200 mg/dL 202 (H) Triglycerides, Nonfasting <150 mg/dL 287 (H) HDL Cholesterol, Nonfasting >39 mg/dL 46 LDL Cholesterol Calculated, Nonfasting <100 mg/dL 99 Non HDL Cholesterol, Nonfasting <130 mg/dL 156 (H) VLDL Cholesterol, Nonfasting <30 mg/dL 57 (H) Total Chol/HDL Ratio, Nonfasting <5.10 mg/dL 4.39 LDL/HDL Ratio, Nonfasting <2.54 mg/dL 2.15 Hemoglobin A1C 4.3 - 5.6 % 5.6 Estimated Average Glucose mg/dL 114 Legend: (H) High (L) Low MEDICATIONS: Current Outpatient Medications Medication Sig omeprazole (PRILOSEC) 20 mg capsule Take 1 capsule by mouth two times a day. sucralfate (CARAFATE) 1 gram tablet Take 1 tablet by mouth two times a day. venlafaxine ER (EFFEXOR XR) 150 mg 24 hr capsule Take 1 capsule by mouth once daily. (Start week #3). losartan (COZAAR) 100 mg tablet Take 1 tablet by mouth once daily. metFORMIN ER (GLUCOPHAGE XR) 500 mg 24 hr tablet Take 2 tablets by mouth daily with breakfast. hydroCHLOROthiazide 25 mg tablet Take 1 tablet by mouth once daily. dulaglutide (TRULICITY) 0.75 mg/0.5 mL pen injector Inject 0.75 mg subcutaneously one time a week. Inject dose once per week. Discard Pen After buPROPion SR (WELLBUTRIN SR) 150 mg 12 hr tablet Take 1 tablet by mouth once daily. Blood-Glucose Sensor (FREESTYLE ALTHEA 3 SENSOR) roney 1 Each as directed. tiZANidine (ZANAFLEX) 4 mg tablet Take 1 tablet by mouth every 8 hours as needed (muscle spasms). Ascorbate Calcium 500 mg tab Take by mouth. docusate sodium (COLACE) 100 mg capsule Take 1 capsule by mouth two times a day as needed for constipation. calcium-cholecalciferol, D3, (OSCAL+D 250) 250 mg-3.125 mcg (125 unit) per tablet Take 1 tablet by mouth two times a day. lancets (TRUEPLUS LANCETS) 30 gauge Use with blood glucose test once daily blood sugar diagnostic (TRUE METRIX GLUCOSE TEST STRIP) test strip Use with blood glucose test once daily Blood Pressure Monitor (BLOOD PRESSURE KIT) 1 Each as needed. ibuprofen (ADVIL) 200 mg tablet Take 200 mg by mouth every 6 hours as needed. acetaminophen (TYLENOL) 500 mg tablet Take 1,000 mg by mouth every 8 hours as needed. elderberry fruit (ELDERBERRY ORAL) Take 1,000 mg by mouth once daily. Blood Pressure Cuff - Home Use BLOOD PRESSURE CUFF FOR HOME USE. DX: LABILE BLOOD PRESSURE ascorbic acid (VITAMIN C) 500 mg tablet Take 500 mg by mouth once daily. m (more content not included)... Normal [facility] POTASSIUMon 01-28-2025 Potassium [Moles/Vol] 3.6 mmol/L Low 3.7-5.1 [facility] Comment on above: Order Comment: Speci men Type: BLOOD SPECIMENOrdering Facility: [facility] Address: [address] [place] [address] Performed By: #### K 1 ####[facility] LABCLIA [id number] [address] [place] Anion gap in Serum or Plasma Ordered By: Ashwini Hernandez on 01-05-2025 Anion gap [Moles/Vol] 12 mmol/L 5- [facility] BUN/creatinine ratioOrdered By: Ashwini Hernandez on 01-05-2025 Urea nitrogen/Creatinine [Mass ratio] 19.5 mg/mg 10- [facility] Basic Metabolic Profile (BMP )on 01-05-2025 BUN/CRE 19.5 RATIO Normal - [facility] Comment on above: Performed By: #### L 500.2500 #### [facility] Laboratory [address] [place], [address] Calcium [Mass/Vol] 9.6 mg/dL Normal 7.6-11.0 [facility] Comment on above: Performed By: #### L 500.2500 #### [facility] Laboratory [address] [place], [address] Chloride [Moles/Vol] 98 mmol/L Normal 98-108 [facility] Comment on above: Performed By: #### L 500.2500 #### [facility] [address] [place], [address] CO2 [Moles/Vol] 26.9 mmol/L Normal 21.0-32.0 [facility] Comment on above: Performed By: #### L 500.2500 #### [facility] Laboratory [address] [place], [address] Creatinine [Mass/Vol] 0.76 mg/dL Normal 0.70-1.20 [facility] Comment on above: Performed By: #### L 500.2500 #### [facility] [address] [place], [address] ECRCL 124.45 ml/min Normal 50-250 [facility] Comment on above: Performed By: #### L 500.2500 #### [facility] [address] [place], [address] GAP 12 Normal 5-15 [facility] Comment on above: Performed By: #### L 500.2500 #### [facility] [address] [place], [address] GFR/1.73 sq M.predicted among non-blacks MDRD (S/P/Bld) [Vol rate/Area] 97 mL/min/{1.73_m2} Normal >60 [facility] Comment on above: Result Comment: mL/m in/1.73m2 CKD-EPI Creatinine Equation (2020) Performed By: #### L 500.2500 #### [facility] [address] [place], [address] Glucose [Mass/Vol] 112 mg/dL High 70-99 [facility] Comment on above: Performed By: #### L 500.2500 #### [facility] [address] [place], [address] Potassium [Moles/Vol] 4.0 mmol/L Normal 3.3-5.1 [facility] Comment on above: Result Comment: Hemo lysis present, Results??could be affected. ?? Performed By: #### L 500.2500 #### [facility] [address] [place], [place], [id number] Sodium [Moles/Vol] 138 mmol/L Normal 133-145 [facility] Comment on above: Performed By: #### L 500.2500 #### [facility] [address] [facility] [place], [place], [address] Urea nitrogen [Mass/Vol] 15 mg/dL Normal 4-19 [facility] Comment on above: Performed By: #### L 500.2500 #### [facility] [address] [facility] [place], [place], [id number] Bilirubin Test strip Ql (U)O rdered By: Ashwini Hernandez on 01-05-2025 Bilirubin Ql (U) Negative Negative [facility] Carbon dioxide, total [Moles /volume] in Central venous bloodOrdered By: Ashwini Hernandez on 01-05-2025 CO2 [Moles/Vol] 26.9 mmol/L 21.0-32.0 [facility] Chloride assayOrdered By: Allan Hernandez on 01-05-2025 Chloride [Moles/Vol] 98 mmol/L 98-108 [facility] Emergency Department Summary on 01-05-2025 Emergency Department Summary [facility] Medical Records Department [address] [place] [address] Emergency Department Summary 01/05/25 MR#: [id number] Acct: [id number] Name: SILVIA DIXON Rep #: [id number] : 1975 49 From: Ashwini Hernandez DO PCP: Dr. Randy Zhang MD Status:DEP ER Location: ED HPI History of Present Illness Chief Complaint: Upper Extremity Injury Informant: patient Narrative Narrative: Patient is a 49-year-old female with history of breast cancer, PE (not on any anticoagulation), diabetes (on metformin and Trulicity and states her last A1c was 5.4) as well as hypertension presenting with right shoulder/arm pain as well as concern for dehydration. Patient states about 10 days ago she was lifting a heavy microwave and had a lifted 3 times. After that she started having pain in her right shoulder and upper arm. She is right-hand dominant. She tried a baby had not been taking Advil but over the last 24 hours the pain is worsened. She states that she did not sleep last night because the pain was so bad. She last had 2 doses of Advil at 4 AM. 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 Denies any acute weakness of her arm. States the pain is worse with movement. In addition she states she has been feeling dehydrated since yesterday. She is worried about this and would like this to be evaluated as well. She denies any lightheadedness or dizziness. Denies any chest pain or shortness of breath. Does report some mild swelling of her right arm. Denies any significant trauma or new activities that could have exacerbated over the last few days. No other complaints or concerns reported at this time. [facility] Medical History Wears contact lenses Wears glasses Cancer Depression Anxiety Arthritis Migraine headache History of hiatal hernia Gastric reflux Non-smoker History of stress test History of echocardiogram Hypertension Diabetes Leg pain Anxiety and depression History of breast cancer Pulmonary embolism Home Medications ???Medication ???Instructions ???Recorded ???Last Taken ???Type multivitamin with folic acid 400 1 tab PO DAILY 02/17/14 01/05/25 H istory mcg tablet omeprazole 20 mg capsule,delayed 20 mg PO BID 02/17/14 01/05/25 His tory release dulaglutide 1.5 mg/0.5 mL 1.5 mg subcut QWEEK 06/22/2201/02 History subcutaneous pen injector (Trulicity) metformin 500 mg tablet 500 mg PO BID 06/22/22 01/05/25 Hi story ascorbate calcium (vitamin C) 500 500 mg PO DAILY 05/24/23 01/05/25 History mg tablet naproxen 500 mg tablet 500 mg PO BID PRN pain #30 tabs Unknown Rx sucralfate 1 gram tablet (Carafate) 1 g PO BID 05/28/24 01/05/25 Hi story bupropion HCl 150 mg tablet,12 hr 150 mg PO DAILY 07/24/24 01/05/25 History sustained-release calcium 250 mg (as 1 tab PO BID 07/24/24 01/05/25 His tory carbonate)-vitamin D3 3.125 mcg (125 unit) tablet hydrochlorothiazide 25 mg tablet 25 mg PO DAILY 07/24/24 01/05/25 H istory losartan 100 mg tablet 100 mg PO DAILY 07/24/24 01/05/25 History venlafaxine 150 mg 150 mg PO DAILY 07/24/24 01/05/25 History capsule,extended release 24 hr oxycodone 5 mg tablet 5 mg PO Q12H PRN pain 2 days #4 Unknown Rx tabs prednisone 20 mg tablet 40 mg (2 x 20 mg) PO DAILY #10 tab s 01/05/25 Unknown Rx Allergy/AdvReac Type Severity Reaction Status Date / Time ketorolac tromethamine (From Allergy Hives Verified 01/05/25 08:14 Toradol) nitrofurantoin Allergy Hives Verified 01/05/25 08:14 Family History Mother A-fib CVA (cerebral vascular accident) Father A-fib Grandmother Breast cancer Surgical History S/P endometrial ablation Hx of bilateral breast reduction surgery History of bilateral breast reduction surgery Hx of tubal ligation History of lumpectomy History of mastectomy Social History number of children: 2 current occupational status: unemployed Smoking Status: Never smoker alcohol intake: never substance use type: does not use caffeine: Yes what type of physical activity do you participate in: walking seatbelt use: always do you feel safe at home: Yes additional social history: [employer] Patient is unemployed ROS ROS ED Constitutional Constitutional ED: Reports other Details: Feels dehydrated ; Denies chills or fever(s) Cardiovascular Cardiovascular: Denies chest pain Respiratory/Chest Respiratory/Chest: Denies cough or dyspnea Gastrointestinal Gastrointestinal: Denies nausea or vomi (more content not included)... Normal [facility] Epithelial cells.squamous LM Ql (Urine sed)Ordered By: Ashwini Hernandez on 01-05-2025 Epithelial cells.squamous LM.HPF (Urine sed) [#/Area] 0 /[HPF] 5-10 [facility] Estimation of creatinine myrtle aranceOrdered By: Ashwini Hernandez on 01-05-2025 Estimated Creatinine Clearance Calc 124.45 ml/min 50-250 [facility] GFR/1.73 sq M.predicted bruno g non-blacks MDRD (S/P/Bld) [Vol rate/Area]Ordered By: Ashwini Hernandez on 01-05-2025 Estimated GFR (MDRD) Non-Af Amer 97 >60 [facility] Comment on above: mL/min/1.73m2 CKD-EP I Creatinine Equation (2020) Glomerular filtration rate ( GFR) estimation/1.73 sq m using serum, plasma, or whole bOrdered By: Ashwini Hernandez on 01-05-2025 GFR/1.73 sq M.predicted among non-blacks MDRD (S/P/Bld) [Vol rate/Area] 97 mL/min/{1.73_m2} >60 [facility] Comment on above: mL/min/1.73m2 CKD-EP I Creatinine Equation (2020) Glucose Ql (U)Ordered By: Allan Hernandez on 01-05-2025 Urine Glucose (UA) Normal mg/dl Normal [facility] Ketones Test strip Ql (U)Ord ered By: Ashwini Hernandez on 01-05-2025 Ketones Ql (U) Negative Negative [facility] Microscopic analysis of urin e for red blood cells (RBC)Ordered By: Ashwini Hernandez on 01-05-2025 Microscopic analysis of urine for red blood cells (RBC) 0 SEEN /hpf 0-5 [facility] Urine RBC 0 SEEN /hpf 0-5 [facility] Mucus LM Ql (Urine sed)Order ed By: Ashwini Hernandez on 01-05-2025 Mucus Ql (Urine sed) 0 SEEN /hpf [facility] Nitrite Test strip Ql (U)Ord ered By: Ashwini Hernandez on 01-05-2025 Nitrite Ql (U) Negative Negative [facility] Potassium (Unsp spec) [Mass/ Vol]Ordered By: Ashwini Hernandez on 01-05-2025 Potassium [Moles/Vol] 4.0 mmol/L 3.3-5.1 [facility] Comment on above: Hemolysis present, R esults could be affected. Potassium measurement (mass/ volume)Ordered By: Ashwini Hernandez on 01-05-2025 Potassium (Unsp spec) [Mass/Vol] 4.0 mmol/L 3.3-5.1 [facility] Comment on above: Hemolysis present, R esults could be affected. Protein Test strip Ql (U)Ord ered By: Ashwini Hernandez on 01-05-2025 Protein Ql (U) 30 mg/dl High Negative [facility] Serum creatinine measurement (mass/volume)Ordered By: Ashwini Hernandez on 01-05-2025 Creatinine [Mass/Vol] 0.76 mg/dL 0.70-1.20 [facility] Serum glucose measurement (m ass/volume)Ordered By: Ashwini Hernandez on 01-05-2025 Glucose [Mass/Vol] 112 mg/dL High 70-99 [facility] Serum or plasma calcium paco urement (mass/volume)Ordered By: Ashwini Hernandez on 01-05-2025 Calcium [Mass/Vol] 9.6 mg/dL 7.6-11.0 [facility] Serum or plasma urea nitroge n measurement (mass/volume)Ordered By: Ashwini Hernandez on 01-05-2025 Urea nitrogen [Mass/Vol] 15 mg/dL 4-19 [facility] Shoulder min 2 Viewson 01-05 Shoulder min 2 Views [facility] Imaging [facility] [address], [place] [id number] Shoulder min 2 Views MR#: [id number] Acct: [id number] Name: SILVIA DIXON Michael Rep #: [id number] : 1975 F 49 From: Kenrick Jamison MD PCP: Dr. Randy Zhang MD Status: PRE ER Study: Shoulder min 2 Views Date of Exam: 01/05/25 Exam# [id number] Ordering Dr: Ashwini Hernandez DO EXAM: XR Right Shoulder Complete, 2 or More Views CLINICAL INDICATION: PAIN TECHNIQUE: Two or more views of the right shoulder. COMPARISON: No relevant prior studies available. FINDINGS: BONES/JOINTS: Mild degenerative changes of the acromioclavicular and glenohumeral joints. No acute fracture. No dislocation. SOFT TISSUES: Unremarkable. RAD/Shoulder min 2 Views IMPRESSION: 1. Degenerative changes as above. 2. If symptoms persist, further evaluation with MRI is recommended. Reading Location: [id number] CC: Dr. Ashwini Hernandez DO; Dr. Randy Zhang MD Game Master: Signed Normal [facility] Sodium levelOrdered By: Efrain Hernandez on 01-05-2025 Sodium [Moles/Vol] 138 mmol/L 133-145 [facility] Squamous epithelial cells de tection in urine sediment by light microscopyOrdered By: Ashwini Hernandez on 01-05-2025 Epithelial cells.squamous LM Ql (Urine sed) 0-5 SEEN /hpf 5-10 [facility] Urinalysis, Completeon 01-05 EPI,SQUAMOUS 0-5 SEEN Normal 5-10 [facility] Comment on above: Order Comment: CLEAN CATCH Performed By: #### L 499.0043 #### [facility] Laboratory [address] [place], [address] WBC 0-5 SEEN Normal 0-5 [facility] Comment on above: Order Comment: CLEAN CATCH Performed By: #### L 499.0043 #### [facility] Laboratory [address] [place], [address] BACTERIA 0 SEEN Normal None Seen [facility] Comment on above: Order Comment: CLEAN CATCH Performed By: #### L 499.0043 #### [facility] Laboratory [address] [place], [address] Mucus Ql (Urine sed) 0 SEEN Normal [facility] Comment on above: Order Comment: CLEAN CATCH Performed By: #### L 499.0043 #### [facility] [address] [place], [place], [address] RBC 0 SEEN Normal 0-5 [facility] Comment on above: Order Comment: CLEAN CATCH Performed By: #### L 499.0043 #### [facility] [address] [place], [place], [address] Urine blood detectionOrdered By: Ashwini Hernandez on 01-05-2025 Urine Occult Blood Negative Negative [facility] Urine clarityOrdered By: Ángela Hernandez on 01-05-2025 Clarity (U) Clear Clear [facility] Urine color determinationOrd ered By: Ashwini Hernandez on 01-05-2025 Color (U) Yellow Yellow [facility] Urine glucose detectionOrder ed By: Ashwini Hernandez on 01-05-2025 Glucose Ql (U) Normal mg/dl Normal [facility] Urine leukocyte esterase det ection by dipstickOrdered By: Ashwini Hernandez on 01-05-2025 Leukocyte esterase Test strip Ql (U) Negative Negative [facility] Urine pHOrdered By: Ashwini ellison on 01-05-2025 pH (U) 6.0 [pH] 5.0 - 8.0 [facility] Urine sediment bacteria coun t by microscopy (number/high power field)Ordered By: Ashwini Hernandez on 01-05-2025 Bacteria LM.HPF (Urine sed) [#/Area] 0 /[HPF] None Seen [facility] Urine specific gravity measu rementOrdered By: Ashwini Hernandez on 01-05-2025 Specific gravity (U) [Rel density] 1.020 1.002-1.03 0 [facility] Urine urobilinogen measureme ntOrdered By: Ashwini Hernandez on 01-05-2025 Urobilinogen Ql (U) Normal mg/dl Normal [facility] Urobilinogen Ql (U)Ordered B y: Ashwini Hernandez on 01-05-2025 Urine Urobilinogen Normal mg/dl Normal [facility] White blood cell countOrdere d By: Ashwini Hernandez on 01-05-2025 Urine WBC 0-5 SEEN /hpf 0-5 [facility] White blood cell count 0-5 SEEN /hpf 0-5 [facility] CNOVSPon 12-27-2024 CNOVSP Visit (SP) Office (H EMAWS) -- SILVIA DIXON ([id number]) 1975 F Date Time Provider Department 12/27/24 9:00 AM KAITLIN MANUEL During your visit today, we recorded the following information about you: Temperature Pulse Blood pressure Weight 97.6 degrees 103/minute 134/83 125.9 kg Kaitlin Manuel APRN.[employer] 12/27/2024 1:56 PM Signed Chief Complaint Patient presents with: Established Patient HPI: Silvia Dixon is a 49 year old female who presents here today [...] the first of the year. Presented to 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 [facility] and was referred here [...] Not applicable Completed Radiation:06/06/13 to 07/19/13 Started tamoxi (more content not included)... Normal [facility] CNPNon 12-27-2024 CNPN Telephone ([place] [employer]) -- SILVIA DIXON ([id number]) 1975 F Date Time Provider Department 12/27/24 KAITLIN MANUEL During your visit today, we recorded the following information about you: Carlito Jose 12/27/2024 2:42 PM Signed 12/27 AVS- Needs appt. Dr. Dugan-plastics/[place]. - Follow up in 6 months.- done - Pt. aware to call office with any questions/concerns. Jahaira, was patient contacting Dr. Dugan's office to schedule? Rosa Maria Yi 12/27/2024 3:04 PM Signed Patient is calling Dr Dugan office herself Carlito Jose 12/27/2024 3:45 PM Signed Thank you Jahaira! Allergies As of Date: 12/27/2024 Noted Allergy Reaction NITROFURANTOIN 05/02/2013 4 - Hives 14 - Other: See Comments LISINOPRIL 06/02/2016 3 - Cough PHENAZOPYRIDINE 05/02/2013 4 - Hives 14 - Other: See Comments TORADOL (KETOROLAC TROMETHAMINE) 04/05/2013 4 - Hives Date Reviewed: 12/27/2024 Reviewed by: Kaitlin Manuel APRN.[employer] - Fully Assessed Reason for Visit: AVS 12/27 [Other] Prescriptions as of 12/27/2024 - omeprazole (PRILOSEC) 20 mg capsule Take 1 capsule by mouth two times a day. - sucralfate (CARAFATE) 1 gram tablet Take 1 tablet by mouth two times a day. - venlafaxine ER (EFFEXOR XR) 150 mg 24 hr capsule Take 1 capsule by mouth once daily. (Start week #3). - losartan (COZAAR) 100 mg tablet Take 1 tablet by mouth once daily. - metFORMIN ER (GLUCOPHAGE XR) 500 mg 24 hr tablet Take 2 tablets by mouth daily with breakfast. - hydroCHLOROthiazide 25 mg tablet Take 1 tablet by mouth once daily. - dulaglutide (TRULICITY) 0.75 mg/0.5 mL pen injector Inject 0.75 mg subcutaneously one time a week. Inject dose once per week. Discard Pen After - buPROPion SR (WELLBUTRIN SR) 150 mg 12 hr tablet Take 1 tablet by mouth once daily. - Blood-Glucose Sensor (FREESTYLE ALTHEA 3 SENSOR) roney 1 Each as directed. - tiZANidine (ZANAFLEX) 4 mg tablet Take 1 tablet by mouth every 8 hours as needed (muscle spasms). - Ascorbate Calcium 500 mg tab Take by mouth. - docusate sodium (COLACE) 100 mg capsule Take 1 capsule by mouth two times a day as needed for constipation. - calcium-cholecalciferol, D3, (OSCAL+D 250) 250 mg-3.125 mcg (125 unit) per tablet Take 1 tablet by mouth two times a day. - lancets (TRUEPLUS LANCETS) 30 gauge Use with blood glucose test once daily - blood sugar diagnostic (TRUE METRIX GLUCOSE TEST STRIP) test strip Use with blood glucose test once daily - Blood Pressure Monitor (BLOOD PRESSURE KIT) 1 Each as needed. - ibuprofen (ADVIL) 200 mg tablet Take 200 mg by mouth every 6 hours as needed. - acetaminophen (TYLENOL) 500 mg tablet Take 1,000 mg by mouth every 8 hours as needed. - elderberry fruit (ELDERBERRY ORAL) Take 1,000 mg by mouth once daily. - Blood Pressure Cuff - Home Use BLOOD PRESSURE CUFF FOR HOME USE. DX: LABILE BLOOD PRESSURE - ascorbic acid (VITAMIN C) 500 mg tablet Take 500 mg by mouth once daily. - multivitamin tablet Take 1 tablet by mouth once daily. 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*12/13/2012 Drug induced neutropenia [D70.2] 12/18/2012 Other pulmonary embolism and infarction [I26.99]02/20/2014 10/24/2020 Pulmonary embolism (HCC) [I26.99] 02/21/2014 01/15/2023 HTN (hypertension) [I10] Anxiety and depression [F41.9, F32.A] Lymphedema [I89.0] 12/16/2014 Family history of ischemic heart disease [Z82.4*12/29/2015 Obesity due to excess calories [E66.09] 12/29/2015 Hiatal hernia with GERD without esophagitis [K4*07/02/2016 Morbid obesity due to excess calories (HCC) [E6*12/31/2016 Dyspareunia in female [N94.10] 02/04/2017 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*03/31/2017 Personal history of malignant neoplasm of breas*12/19/2017 10/24/2020 Personal history of other venous thrombosis and*12/19/2017 Personal history of pulmonary embolism [Z86.711]12/19/2017 Dizziness and giddiness [R42] 12/19/2017 10/24/2020 Chest pain [R07.9] 12/19/2017 04/02/2019 Osteoporosis [M81.0] 12/10/2021 Hyperglycemia [R73.9] 12/10/2021 06/14/2024 Type 2 diabetes mellitus with hyperglycemia, wi*05/04/2022 Dermatitis of vulva [L30.9] 06/14/2022 Low back pain, unspecified [M54.50] 09/28/2021 Urinary tract infection [N39.0] 01/28/2021 06/14/2024 Obesity, Class III, BMI >= 40 [E66.01] 01/15/2023 PONV (postoperative nausea and vomiting) [R11.2*06/14/2024 Encounter Status:Closed by CARLITO JOSE on 12/27/24 [facility] CNOVon 10-31-2024 CNOV Office Visit (FAMPWS ) -- SILVIA DIXON ([id number]) 1975 F Date Time Provider Department 10/31/24 2:40 PM [facility] During your visit today, we recorded the following information about you: Temperature Pulse Blood pressure Weight 98.1 degrees 106/minute 126/80 125.6 kg Height 1.676 m Randy Zhang MD 10/31/2024 2:58 PM Signed Patient presents with: Cough Dental Problem: Teeth pain HPI: Patient presents today for office visit for acute illness. Was around her niece whom tested pos for both influenza and covid. DURATION OF SYMPTOMS: Began 5 days ago ONSET OF SYMPTOMS: Sudden FEVER: No BODYACHES: Mild TIREDNESS: Mild HEADACHE: Severe. So bad was unable to get out of bed. Took Excedrin migraine with no relief. Is improving EAR SYMPTOMS: Pressure STUFFY NOSE: No POST NASAL DRIP: Yes. Drainage down throat SNEEZING: No SORE THROAT: Yes - mild COUGH: Yes, dry CHEST DISCOMFORT: No SHORTNESS OF BREATH: No WHEEZING: Yes. Has sinus pressure. She is using mucinex prn. MEDICATIONS: Current Outpatient Medications Medication Sig venlafaxine ER (EFFEXOR XR) 150 mg 24 hr capsule Take 1 capsule by mouth once daily. (Start week #3). losartan (COZAAR) 100 mg tablet Take 1 tablet by mouth once daily. metFORMIN ER (GLUCOPHAGE XR) 500 mg 24 hr tablet Take 2 tablets by mouth daily with breakfast. hydroCHLOROthiazide 25 mg tablet Take 1 tablet by mouth once daily. dulaglutide (TRULICITY) 0.75 mg/0.5 mL pen injector Inject 0.75 mg subcutaneously one time a week. Inject dose once per week. Discard Pen After buPROPion SR (WELLBUTRIN SR) 150 mg 12 hr tablet Take 1 tablet by mouth once daily. Blood-Glucose Sensor (FREESTYLE ALTHEA 3 SENSOR) roney 1 Each as directed. tiZANidine (ZANAFLEX) 4 mg tablet Take 1 tablet by mouth every 8 hours as needed (muscle spasms). Ascorbate Calcium 500 mg tab Take by mouth. docusate sodium (COLACE) 100 mg capsule Take 1 capsule by mouth two times a day as needed for constipation. calcium-cholecalciferol, D3, (OSCAL+D 250) 250 mg-3.125 mcg (125 unit) per tablet Take 1 tablet by mouth two times a day. lancets (TRUEPLUS LANCETS) 30 gauge Use with blood glucose test once daily blood sugar diagnostic (TRUE METRIX GLUCOSE TEST STRIP) test strip Use with blood glucose test once daily omeprazole (PRILOSEC) 20 mg capsule Take 1 capsule by mouth two times a day. Blood Pressure Monitor (BLOOD PRESSURE KIT) 1 Each as needed. ibuprofen (ADVIL) 200 mg tablet Take 200 mg by mouth every 6 hours as needed. acetaminophen (TYLENOL) 500 mg tablet Take 1,000 mg by mouth every 8 hours as needed. 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, invasive metaplastic carcinoma [...] LIG/TRNSXJ FLP TUBE ABDL/VAG APPR UNI/BI 11/27/2001 tubes tied MASTECTOMY, PARTIAL Left 04/12/2013 PAST SURGICAL HISTORY OF 11/12/2012 left breast lumpectomy REDUCTION OF LARGE BREAST Bilateral Breast reduction FAMILY HISTORY Problem Relation Age of Onset Diabetes Father Heart Father 54 heart attack, CHF 2016 Hypertension Father A-Fib Stroke Father 57 Obesity Father other (Congestive Heart Failure) Father Hypertension Mother A fib Stroke Mother 60 severe and has fully recovered Osteoporosis Mother Heart Maternal Grandfather CHF and Enlarged Heart Cancer Maternal Grandmother bone cancer Diabetes Maternal Grandmother Breast Cancer Maternal Grandmother 78 Heart Paternal Grandfather NE Diabetes Paternal Grandmother other (Lung Problems) Paternal Grandmother (more content not included)... Normal [facility] SILV[facility] DIXON ([id number]) 1975 F Date Time Provider Department 10/16/24 [facility] During your visit today, we recorded the following information about you: Savita Griffith APRN.CNP 10/16/2024 4:58 PM Signed Can we please let patient know that I received her lab results. Everything looks good, except her potassium was just a little low. Please increase potassium-rich foods in the diet (ie. bananas, cantaloupe, beans, sweet potato, potato, spinach, orange juice). Please recheck a level in 1-2 weeks. Savita Griffith APRN.ALLAN Obi Red OCCA 10/17/2024 9:57 AM Signed TC no answer. Left VM to return call. Obi RedOMAYRAJayro Shanta Anderson MA 10/18/2024 10:08 AM Signed Pt notified of results via [employer]. Shanta Anderson Ma Allergies As of Date: 10/16/2024 Noted Allergy Reaction NITROFURANTOIN 05/02/2013 4 - Hives 14 - Other: See Comments LISINOPRIL 06/02/2016 3 - Cough PHENAZOPYRIDINE 05/02/2013 4 - Hives 14 - Other: See Comments TORADOL (KETOROLAC TROMETHAMINE) 04/05/2013 4 - Hives Date Reviewed: 10/15/2024 Reviewed by: Charly Pyle LPN - Fully Assessed Reason for Visit: Results [95] Primary Visit Diagnosis:Hypokalemia [E87.6] Order(s):BASIC METABOLIC PANEL [SQBMP] Order #: [id number] FUTURE Prescriptions as of 10/18/2024 - venlafaxine ER (EFFEXOR XR) 150 mg 24 hr capsule Take 1 capsule by mouth once daily. (Start week #3). - losartan (COZAAR) 100 mg tablet Take 1 tablet by mouth once daily. - metFORMIN ER (GLUCOPHAGE XR) 500 mg 24 hr tablet Take 2 tablets by mouth daily with breakfast. - hydroCHLOROthiazide 25 mg tablet Take 1 tablet by mouth once daily. - dulaglutide (TRULICITY) 0.75 mg/0.5 mL pen injector Inject 0.75 mg subcutaneously one time a week. Inject dose once per week. Discard Pen After - buPROPion SR (WELLBUTRIN SR) 150 mg 12 hr tablet Take 1 tablet by mouth once daily. - Blood-Glucose Sensor (FREESTYLE ALTHEA 3 SENSOR) roney 1 Each as directed. - tiZANidine (ZANAFLEX) 4 mg tablet Take 1 tablet by mouth every 8 hours as needed (muscle spasms). - Ascorbate Calcium 500 mg tab Take by mouth. - docusate sodium (COLACE) 100 mg capsule Take 1 capsule by mouth two times a day as needed for constipation. - calcium-cholecalciferol, D3, (OSCAL+D 250) 250 mg-3.125 mcg (125 unit) per tablet Take 1 tablet by mouth two times a day. - lancets (TRUEPLUS LANCETS) 30 gauge Use with blood glucose test once daily - blood sugar diagnostic (TRUE METRIX GLUCOSE TEST STRIP) test strip Use with blood glucose test once daily - omeprazole (PRILOSEC) 20 mg capsule Take 1 capsule by mouth two times a day. - Blood Pressure Monitor (BLOOD PRESSURE KIT) 1 Each as needed. - ibuprofen (ADVIL) 200 mg tablet Take 200 mg by mouth every 6 hours as needed. - acetaminophen (TYLENOL) 500 mg tablet Take 1,000 mg by mouth every 8 hours as needed. - elderberry fruit (ELDERBERRY ORAL) Take 1,000 mg by mouth once daily. - Blood Pressure Cuff - Home Use BLOOD PRESSURE CUFF FOR HOME USE. DX: LABILE BLOOD PRESSURE - ascorbic acid (VITAMIN C) 500 mg tablet Take 500 mg by mouth once daily. - multivitamin tablet Take 1 tablet by mouth once daily. 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*12/13/2012 Drug induced neutropenia [D70.2] 12/18/2012 Other pulmonary embolism and infarction [I26.99]02/20/2014 10/24/2020 Pulmonary embolism (HCC) [I26.99] 02/21/2014 01/15/2023 HTN (hypertension) [I10] Anxiety and depression [F41.9, F32.A] Lymphedema [I89.0] 12/16/2014 Family history of ischemic heart disease [Z82.4*12/29/2015 Obesity due to excess calories [E66.09] 12/29/2015 Hiatal hernia with GERD without esophagitis [K4*07/02/2016 Morbid obesity due to excess calories (HCC) [E6*12/31/2016 Dyspareunia in female [N94.10] 02/04/2017 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*03/31/2017 Personal history of malignant neoplasm of breas*12/19/2017 10/24/2020 Personal history of other venous thrombosis and*12/19/2017 Personal history of pulmonary embolism [Z86.711]12/19/2017 Dizziness and giddiness [R42] 12/19/2017 10/24/2020 Chest pain [R07.9] 12/19/2017 04/02/2019 Osteoporosis [M81.0] 12/10/2021 Hyperglycemia [R73.9] 12/10/2021 06/14/2024 Type 2 diabetes mellitus with hyperglycemia, wi*05/04/2022 Dermatitis of vulva [L30.9] 06/14/2022 Low back pain, unspecified [M54.50] 09/28/2021 Urinary tract infection [N39.0] 01/28/2021 06/14/2024 Obesity, Class III, BMI >= 40 [E66.01] 01/15/2023 PONV (postoperative nausea and vomiting) [R11.2*06/14/2024 Encounter Status:Closed by SHANTA ANDERSON on 10/18/[address] [facility] CBC W Auto Differential pane l (Bld)on 10-15-2024 Basophils (Bld) [#/Vol] 0.08 10*3/uL [facility] Basophils/100 WBC (Bld) 0.8 % [facility] Differential cell count method Nom (Bld) Auto [facility] Eosinophils (Bld) [#/Vol] 0.12 10*3/uL [facility] Eosinophils/100 WBC (Bld) 1.2 % [facility] Erythrocyte distribution width (RBC) [Ratio] 13.8 % 11.5 - 15.0 % [facility] Hematocrit (Bld) [Volume fraction] 45.1 % 36.0 - 46.0 % [facility] Hemoglobin (Bld) [Mass/Vol] 14.4 g/dL 11.5 - 15.5 g/dL [facility] Immature granulocytes (Bld) [#/Vol] 0.04 10*3/uL [facility] Immature granulocytes/100 WBC (Bld) 0.4 % [facility] Lymphocytes (Bld) [#/Vol] 3.50 10*3/uL [facility] Lymphocytes/100 WBC (Bld) 34.4 % [facility] MCH (RBC) [Entitic mass] 28.0 pg 26. 0 - 34.0 pg [facility] MCHC (RBC) [Mass/Vol] 31.9 g/dL 30.5 - 36.0 g/dL [facility] MCV (RBC) [Entitic vol] 87.7 fL 80.0 - 100.0 fL [facility] Monocytes (Bld) [#/Vol] 0.57 10*3/uL [facility] Monocytes/100 WBC (Bld) 5.6 % [facility] Neutrophils (Bld) [#/Vol] 5.86 10*3/uL [facility] Neutrophils/100 WBC (Bld) 57.6 % [facility] Nucleated RBC (Bld) [#/Vol] [facility] Nucleated RBC/100 WBC (Bld) [Ratio] 0.0 % /100 WBC [facility] Platelet mean volume (Bld) [Entitic vol] 10.5 fL 9.0 - 12.7 fL [facility] Platelets (Bld) [#/Vol] 282 10*3/uL [facility] RBC (Bld) [#/Vol] 5.14 10*6/uL 3.90 - 5.20 m/uL [facility] WBC (Bld) [#/Vol] 10.17 10*3/uL [facility] Basophils (Bld) [#/Vol] 0.08 10*3/uL Normal <0.[address] [facility] Comment on above: Order Comment: Speci men Type: BLOOD SPECIMENOrdering Facility: [facility] Address: [address] [place] [address] Performed By: #### 5 7021-8 ####[facility] LABCLIA [id number] [place] [address] [place] Basophils/100 WBC (Bld) 0.8 % Normal [facility] Comment on above: Order Comment: Speci men Type: BLOOD SPECIMENOrdering Facility: [facility] Address: [address] [place] [address] Performed By: #### 5 7021-8 ####[facility] LABCLIA [id number] [place] [address] [place] Differential cell count method Nom (Bld) Auto Normal [facility] Comment on above: Order Comment: Speci men Type: BLOOD SPECIMENOrdering Facility: [facility] Address: [address] [place] [address] Performed By: #### 5 7021-8 ####[facility] LABCLIA [id number] [place] [address] [place] Eosinophils (Bld) [#/Vol] 0.12 10*3/uL Normal <0.[address] [facility] Comment on above: Order Comment: Speci men Type: BLOOD SPECIMENOrdering Facility: [facility] Address: [address] [place] [address] Performed By: #### 5 7021-8 ####[facility] LABCLIA [id number] [place] [address] [place] Eosinophils/100 WBC (Bld) 1.2 % Normal [facility] Comment on above: Order Comment: Speci men Type: BLOOD SPECIMENOrdering Facility: [facility] Address: [address] [place] [address] Performed By: #### 5 7021-8 ####[facility] LABCLIA [id number] [place] [address] [place] Erythrocyte distribution width (RBC) [Ratio] 13.8 % Normal 11.5-15.[address] [facility] Comment on above: Order Comment: Speci men Type: BLOOD SPECIMENOrdering Facility: [facility] Address: [address] [place] [address] Performed By: #### 5 7021-8 ####[facility] LABCLIA [id number] [place] [address] [place] Hematocrit (Bld) [Volume fraction] 45.1 % Normal 36.0-46.[address] [facility] Comment on above: Order Comment: Speci men Type: BLOOD SPECIMENOrdering Facility: [facility] Address: [address] [place] [address] Performed By: #### 5 7021-8 ####[facility] LABCLIA [id number] [place] [address] [place] Hemoglobin (Bld) [Mass/Vol] 14.4 g/dL Normal 11.5-15.[address] [facility] Comment on above: Order Comment: Speci men Type: BLOOD SPECIMENOrdering Facility: [facility] Address: [address] [place] [address] Performed By: #### 5 7021-8 ####[facility] LABCLIA [id number] [place] [address] [place] Immature granulocytes (Bld) [#/Vol] 0.04 10*3/uL Normal <0.[address] [facility] Comment on above: Order Comment: Speci men Type: BLOOD SPECIMENOrdering Facility: [facility] Address: [address] [place] [address] Performed By: #### 5 7021-8 ####[facility] LABCLIA [id number] [place] [address] [place] Immature granulocytes/100 WBC (Bld) 0.4 % Normal [facility] Comment on above: Order Comment: Speci men Type: BLOOD SPECIMENOrdering Facility: [facility] Address: [address] [place] [address] Performed By: #### 5 7021-8 ####[facility] LABCLIA [id number] [place] [address] [place] Lymphocytes (Bld) [#/Vol] 3.50 10*3/uL Normal 1.00-4.[address] [facility] Comment on above: Order Comment: Speci men Type: BLOOD SPECIMENOrdering Facility: [facility] Address: [address] [place] [address] Performed By: #### 5 7021-8 ####[facility] LABCLIA [id number] [place] [address] [place] Lymphocytes/100 WBC (Bld) 34.4 % Normal [facility] Comment on above: Order Comment: Speci men Type: BLOOD SPECIMENOrdering Facility: [facility] Address: [address] [place] [address] Performed By: #### 5 7021-8 ####[facility] LABIA [id number] [place] [address] [place] MCH (RBC) [Entitic mass] 28.0 pg Normal 26.0-34.[address] [facility] Comment on above: Order Comment: Speci men Type: BLOOD SPECIMENOrdering Facility: [facility] Address: [address] [place] [address] Performed By: #### 5 7021-8 ####[facility] LABIA [id number] [place] [address] [place] MCHC (RBC) [Mass/Vol] 31.9 g/dL Normal 30.5-36.0 [facility] Comment on above: Order Comment: Speci men Type: BLOOD SPECIMENOrdering Facility: [facility] Address: [address] [place] [address] Performed By: #### 5 7021-8 ####[facility] LABIA [id number] [place] [address] [place] MCV (RBC) [Entitic vol] 87.7 fL Normal 80.0-100.0 [facility] Comment on above: Order Comment: Speci men Type: BLOOD SPECIMENOrdering Facility: [facility] Address: [address] [place] [address] Performed By: #### 5 7021-8 ####[facility] LABIA [id number] [place] [address] [place] Monocytes (Bld) [#/Vol] 0.57 10*3/uL Normal <0.[address] [facility] Comment on above: Order Comment: Speci men Type: BLOOD SPECIMENOrdering Facility: [facility] Address: [address] [place] [address] Performed By: #### 5 7021-8 ####[facility] LABCLIA [id number] [place] [address] [place] Monocytes/100 WBC (Bld) 5.6 % Normal [facility] Comment on above: Order Comment: Speci men Type: BLOOD SPECIMENOrdering Facility: [facility] Address: [address] [place] [address] Performed By: #### 5 7021-8 ####[facility] LABCLIA [id number] [place] [address] [place] Neutrophils (Bld) [#/Vol] 5.86 10*3/uL Normal 1.45-7.[address] [facility] Comment on above: Order Comment: Speci men Type: BLOOD SPECIMENOrdering Facility: [facility] Address: [address] [place] [address] Performed By: #### 5 7021-8 ####[facility] LABIA [id number] [place] [address] [place] Neutrophils/100 WBC (Bld) 57.6 % Normal [facility] Comment on above: Order Comment: Speci men Type: BLOOD SPECIMENOrdering Facility: [facility] Address: [address] [place] [address] Performed By: #### 5 7021-8 ####[facility] LABIA [id number] [place] [address] [place] Nucleated RBC (Bld) [#/Vol] 10*3/uL Normal <0.[address] [facility] Comment on above: Order Comment: Speci men Type: BLOOD SPECIMENOrdering Facility: [facility] Address: [address] [place] [address] Performed By: #### 5 7021-8 ####[facility] LABCLIA [id number] [place] [address] [place] Nucleated RBC/100 WBC (Bld) [Ratio] 0.0 /100 WBC [address] [facility] Comment on above: Order Comment: Speci men Type: BLOOD SPECIMENOrdering Facility: [facility] Address: [address] [place] [address] Performed By: #### 5 7021-8 ####[facility] LABIA [id number] [place] [address] [place] Platelet mean volume (Bld) [Entitic vol] 10.5 fL Normal 9.0-12.[address] [facility] Comment on above: Order Comment: Speci men Type: BLOOD SPECIMENOrdering Facility: [facility] Address: [address] [place] [address] Performed By: #### 5 7021-8 ####[facility] LABIA [id number] [place] [address] [place] Platelets (Bld) [#/Vol] 282 10*3/uL Normal 150-[address] [facility] Comment on above: Order Comment: Speci men Type: BLOOD SPECIMENOrdering Facility: [facility] Address: [address] [place] [address] Performed By: #### 5 7021-8 ####[facility] LABIA [id number] [place] [address] [place] RBC (Bld) [#/Vol] 5.14 10*6/uL Normal 3.90-5.20 [facility] Comment on above: Order Comment: Speci men Type: BLOOD SPECIMENOrdering Facility: [facility] Address: [address] [place] [address] Performed By: #### 5 7021-8 ####[facility] LABIA [id number] [place] [address] [place] WBC (Bld) [#/Vol] 10.17 10*3/uL Normal 3.70-11.00 [facility] Comment on above: Order Comment: Speci men Type: BLOOD SPECIMENOrdering Facility: [facility] Address: [address] [place] [address] Performed By: #### 5 7021-8 ####[facility] KAROL [id number] [place] [id number] [id number] [place] CNOVon 10-15-2024 CNOV Office Visit (FAMPWS ) -- SILVIA DIXON ([id number]) 1975 F Date Time Provider Department 10/15/24 2:20 PM [facility] During your visit today, we recorded the following information about you: Pulse Respiration Blood pressure Weight 109/minute 16/minute 130/92 123.8 kg Savita Griffith APRN.[employer] 10/15/2024 7:10 PM Signed This is a 49 year old female who presents today with: Patient presents with: Follow Up: Medication refills; discuss CGM Pressure in nose and sinuses Having to blow her nose multiple times per day Started a week ago but has been worse the last 4 days Denies fevers and chills +nausea, denies vomiting +abd pain Denies nausea/vomiting Using tylenol sinus cold medication with no relief No ear pain, b/l itching HTN: Patient is compliant with meds Yes Monitors bp at home: Yes. Denies side effects: Yes. Chest pain: No. Dyspnea: No. Edema: No. Palpitations: No. Syncope: No. Headache: No. Dizziness: No. DM: Reports overall feeling well. Medication side effects: Yes. Home sugar checks: Yes Hypoglycemic spells: No. Watching diet: Yes. Unexpected weight loss: No. Polyuria, polydipsia: No. Vision Changes: No. Foot lesions or numbness or pain: No. Started CGM in June and and it got bent and stuck in the back of her arm Has not used CMG since August Had issues with readings being low on CGM when she was asleep throughout the night and when she would do fingersticks her sugars would be fine CGM would say it was as low as 35 -- but finger stick would be in the 90's. 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 Ascorbate Calcium 500 mg tab Take by mouth. docusate sodium (COLACE) 100 mg capsule Take 1 capsule by mouth two times a day as needed for constipation. venlafaxine ER (EFFEXOR XR) 150 mg 24 hr capsule Take 1 capsule by mouth once daily. (Start week #3). calcium-cholecalciferol, D3, (OSCAL+D 250) 250 mg-3.125 mcg (125 unit) per tablet Take 1 tablet by mouth two times a day. lancets (TRUEPLUS LANCETS) 30 gauge Use with blood glucose test once daily blood sugar diagnostic (TRUE METRIX GLUCOSE TEST STRIP) test strip Use with blood glucose test once daily buPROPion SR (WELLBUTRIN SR) 150 mg 12 hr tablet Take 1 tablet by mouth once daily. dulaglutide (TRULICITY) 0.75 mg/0.5 mL pen injector Inject 0.75 mg subcutaneously one time a week. Inject dose once per week. Discard Pen After hydroCHLOROthiazide 25 mg tablet Take 1 tablet by mouth once daily. losartan (COZAAR) 100 mg tablet Take 1 tablet by mouth once daily. metFORMIN ER (GLUCOPHAGE XR) 500 mg 24 hr tablet Take 2 tablets by mouth daily with breakfast. omeprazole (PRILOSEC) 20 mg capsule Take 1 capsule by mouth two times a day. Blood Pressure Monitor (BLOOD PRESSURE KIT) 1 Each as needed. ibuprofen (ADVIL) 200 mg tablet Take 200 mg by mouth every 6 hours as needed. acetaminophen (TYLENOL) 500 mg tablet Take 1,000 mg by mouth every 8 hours as needed. elderberry fruit (ELDERBERRY ORAL) Take 1,000 mg [...] FAMILY HISTORY Problem Relation Age of Onset Diabetes Father Heart Father 54 heart attack, CH (more content not included)... Normal [facility] Comprehensive metabolic 2000 panelon 10-15-2024 Albumin [Mass/Vol] 4.1 g/dL Normal 3.9-4.9 [facility] Comment on above: Order Comment: Speci men Type: BLOOD SPECIMENOrdering Facility: [facility] [facility] Address: [address] [place] [address] Performed By: #### 2 4323-8, LIPNF ####[facility] LABCLIA [id number] [place] [address] [place] ALP [Catalytic activity/Vol] 78 U/L Normal 34-[address] [facility] Comment on above: Order Comment: Speci men Type: BLOOD SPECIMENOrdering Facility: [facility] Address: [address] [place] [address] Performed By: #### 2 4323-8, LIPNF ####[facility] LABCLIA [id number] [place] [address] [place] ALT [Catalytic activity/Vol] 21 U/L Normal 7-[address] [facility] Comment on above: Order Comment: Speci men Type: BLOOD SPECIMENOrdering Facility: [facility] Address: [address] [place] [address] Performed By: #### 2 4323-8, LIPNF ####[facility] LABCLIA [id number] [place] [address] [place] Anion gap [Moles/Vol] 11 mmol/L Normal 8-15 [facility] Comment on above: Order Comment: Speci men Type: BLOOD SPECIMENOrdering Facility: [facility] Address: [address] [place] [address] Performed By: #### 2 4323-8, LIPNF ####[facility] LABCLIA [id number] [place] [address] [place] AST [Catalytic activity/Vol] 16 U/L Normal 13-[address] [facility] Comment on above: Order Comment: Speci men Type: BLOOD SPECIMENOrdering Facility: [facility] Address: [address] [place] [address] Performed By: #### 2 4323-8, LIPNF ####[facility] LABCLIA [id number] [place] [address] [place] Bilirubin [Mass/Vol] 0.7 mg/dL Normal 0.2-1.3 [facility] Comment on above: Order Comment: Speci men Type: BLOOD SPECIMENOrdering Facility: [facility] Address: [address] [place] [address] Performed By: #### 2 4323-8, LIPNF ####[facility] LABCLIA [id number] [place] [address] [place] Calcium [Mass/Vol] 10.0 mg/dL Normal 8.5-10.2 [facility] Comment on above: Order Comment: Speci men Type: BLOOD SPECIMENOrdering Facility: [facility] Address: [address] [place] [address] Performed By: #### 2 4323-8, LIPNF ####[facility] LABCLIA [id number] [place] [address] [place] Chloride [Moles/Vol] 99 mmol/L Normal 98-107 [facility] Comment on above: Order Comment: Speci men Type: BLOOD SPECIMENOrdering Facility: [facility] Address: [address] [place] [address] Performed By: #### 2 4323-8, LIPNF ####[facility] LABCLIA [id number] [place] [address] [place] CO2 [Moles/Vol] 27 mmol/L Normal 22-[address] [facility] Comment on above: Order Comment: Speci men Type: BLOOD SPECIMENOrdering Facility: [facility] Address: [address] [place] [address] Performed By: #### 2 4323-8, LIPNF ####[facility] LABCLIA [id number] [place] [address] [place] Creatinine [Mass/Vol] 0.65 mg/dL Normal 0.58-0.96 [facility] Comment on above: Order Comment: Speci men Type: BLOOD SPECIMENOrdering Facility: [facility] Address: [address] [place] [address] Performed By: #### 2 4323-8, LIPNF ####[facility] LABCLIA [id number] [place] [address] [place] Creatinine and Glomerular filtration rate.predicted panel (S/P/Bld) 109 mL/min/1.73m??? Normal >=[address] [facility] Comment on above: Order Comment: Speci men Type: BLOOD SPECIMENOrdering Facility: [facility] Address: [address] [place] [address] Result Comment: Glendy mated Glomerular Filtration Rate (eGFR) is calculated using the 2020 CKD-EPI creatinine equation. This equation utilizes serum creatinine, sex, and age as parameters. The creatinine assay has traceable calibration to isotope dilution-mass spectrometry. Refer to KDIGO guidelines for clinical interpretation. In patients with unstable renal function, e.g. those with acute kidney injury, the eGFR may not accurately reflect actual GFR. Performed By: #### 2 4323-8, LIPNF ####[facility] LABIA [id number] [place] [address] [place] Glucose [Mass/Vol] 100 mg/dL High 74-99 [facility] Comment on above: Order Comment: Specdarío garcia Type: BLOOD SPECIMENOrdering Facility: [facility] Address: [address] [place] [address] Result Comment: The [place] Diabetes Association (ADA) provides guidance for cutoff values for fasting glucose and random glucose. The ADA defines fasting as no caloric intake for at least 8 hours. Fasting plasma glucose results between 100 to 125 mg/dL indicate increased risk for diabetes (prediabetes). Fasting plasma glucose results greater than or equal to 126 mg/dL meet the criteria for diagnosis of diabetes. In the absence of unequivocal hyperglycemia, results should be confirmed by repeat testing. In a patient with classic symptoms of hyperglycemia or hyperglycemic crisis, random plasma glucose results greater than or equal to 200 mg/dL meet the criteria for diagnosis of diabetes. Reference: Standards of Medical Care in Diabetes 2016, [place] Diabetes Association. Diabetes Care. 2016.39(Suppl 1). Performed By: #### 2 4323-8, LIPNF ####[facility] LABIA [id number] [place] [id number] [place] Potassium [Moles/Vol] 3.4 mmol/L Low 3.7-5.1 [facility] Comment on above: Order Comment: Specdarío men Type: BLOOD SPECIMENOrdering Facility: [facility] Address: [address] [place] [address] Performed By: #### 2 4323-8, LIPNF ####[facility] LABCLIA [id number] [address] [address] [place] Protein [Mass/Vol] 7.6 g/dL Normal 6.3-8.0 [facility] Comment on above: Order Comment: Speci men Type: BLOOD SPECIMENOrdering Facility: [facility] Address: [address] [place] [address] Performed By: #### 2 4323-8, LIPNF ####[facility] LABCLIA [id number] [place] [address] [place] Sodium [Moles/Vol] 137 mmol/L Normal 136-144 [facility] Comment on above: Order Comment: Speci men Type: BLOOD SPECIMENOrdering Facility: [facility] Address: [address] [place] [address] Performed By: #### 2 4323-8, LIPNF ####[facility] LABCLIA [id number] [place] [address] [place] Urea nitrogen [Mass/Vol] 8 mg/dL Normal 7-[address] [facility] Comment on above: Order Comment: Speci men Type: BLOOD SPECIMENOrdering Facility: [facility] Address: [address] [place] [address] Performed By: #### 2 4323-8, LIPNF ####[facility] LABIA [id number] [place] [address] [place] HbA1c (Bld)on 10-15-2024 Average glucose Estimated from glycated hemoglobin (Bld) [Mass/Vol] 114 mg/dL Normal [facility] Comment on above: Order Comment: Speci men Type: BLOOD SPECIMENOrdering Facility: [facility] Address: [address] [place] [address] Result Comment: eAG: (Estimated average glucose) is a calculated value from HgbA1c and is service representative of the average blood glucose level in the last 2-3 month period. Performed By: #### 5 5454-3 ####[facility] LABCLIA [id number] [place] [address] [place] HbA1c (Bld) [Mass fraction] 5.6 % Normal 4.3-5.[address] [facility] Comment on above: Order Comment: Speci men Type: BLOOD SPECIMENOrdering Facility: [facility] Address: [address] [place] [address] Result Comment: [place] Diabetes Association guidelines indicate that patients with HgbA1c in the range 5.7-6.4% are at increased risk for development of diabetes, and intervention by lifestyle modification may be beneficial. HgbA1c greater or equal to 6.5% is considered diagnostic of diabetes. Performed By: #### 5 5454-3 ####[facility] LABCLIA [id number] [place] [address] [place] LIPID PANEL, NONFASTINGon Cholesterol [Mass/Vol] 202 mg/dL High <200 [facility] Comment on above: Order Comment: Speci men Type: BLOOD SPECIMENOrdering Facility: [facility] Address: [address] [place] [address] Result Comment: <200 mg/dL, Desirable 200-239 mg/dL, Borderline high >239 mg/dL, High Performed By: #### 2 4323-8, LIPNF ####[facility] LABCLIA [id number] [place] [address] [place] HDL CHOLESTEROL, NF 46 mg/dL Normal >39 [facility] Comment on above: Order Comment: Speci men Type: BLOOD SPECIMENOrdering Facility: [facility] Address: [address] [place] [address] Result Comment: 40-5 9 mg/dL, Acceptable >59 mg/dL, High: Negative risk factor for coronary heart disease <40 mg/dL, Low: Positive risk factor for coronary heart disease Performed By: #### 2 4323-8, LIPNF ####[facility] LABCLIA [id number] [place] [address] [place] LDL CHOLESTEROL, NF 99 mg/dL Normal <100 [facility] Comment on above: Order Comment: Bettina garcia Type: BLOOD SPECIMENOrdering Facility: [facility] Address: [address] [place] [address] Result Comment: <100 mg/dL, Optimal 100-129 mg/dL, Near optimal/above optimal 130-159 mg/dL, Borderline high 160-189 mg/dL, High >189 mg/dL, Very high Secondary prevention optimal LDL Cholesterol levels are recommended to be < 70 mg/dL Performed By: #### 2 4323-8, LIPNF ####[facility] LABCLIA [id number] [address] OF [facility] LDL/HDL RATIO, NF 2.15 mg/dL Normal <2.54 [facility] Comment on above: Order Comment: Bettina garcia Type: BLOOD SPECIMENOrdering Facility: [facility] Address: [address] [place] [address] Result Comment: Refe rence: 1. National Cholesterol Education Program ATP III Guideline At-A-Glance Quick Desk Reference: National Heart, Lung, and Blood [place]. National Institutes of Health. 2001: NIH Publication No. 01-3305. 2. An International Atherosclerosis Society position paper: global recommendations for the management of dyslipidemia: executive summary, Atherosclerosis. 2014: 232(2):410-413. Performed By: #### 2 4323-8, LIPNF ####[facility] LABCLIA [id number] [address] [place] NON HDL CHOL, NF 156 mg/dL High <130 [facility] Comment on above: Order Comment: Bettina garcia Type: BLOOD SPECIMENOrdering Facility: [facility] Address: [address] [place] [address] Result Comment: <130 mg/dL, Optimal 130-159 mg/dL, Near optimal/above optimal 160-189 mg/dL, Borderline high 190-219 mg/dL, High >219 mg/dL, Very high Secondary prevention optimal non HDL Cholesterol levels are recommended to be <100 mg/dL Performed By: #### 2 4323-8, LIPNF ####[facility] LABCLIA [id number] [place] [address] [place] T CHOL/HDL RATIO NF 4.39 mg/dL Normal <5.10 [facility] Comment on above: Order Comment: Speci men Type: BLOOD SPECIMENOrdering Facility: [facility] Address: [address] [place] [address] Performed By: #### 2 4323-8, LIPNF ####[facility] LABCLIA [id number] [place] [address] [place] TRIGLYCERIDES, NF 287 mg/dL High <150 [facility] Comment on above: Order Comment: Speci men Type: BLOOD SPECIMENOrdering Facility: [facility] Address: [address] [place] [address] Result Comment: <150 mg/dL, Normal 150-199 mg/dL, Borderline high 200-499 mg/dL, High >499 mg/dL, Very high Performed By: #### 2 4323-8, LIPNF ####[facility] LABCLIA [id number] [place] [address] [place] VLDL CHOLESTEROL, NF 57 mg/dL High <30 [facility] Comment on above: Order Comment: Speci men Type: BLOOD SPECIMENOrdering Facility: [facility] Address: [address] [place] [address] Performed By: #### 2 4323-8, LIPNF ####[facility] LABCLIA [id number] [place] [address] [place] CNOVon 08-16-2024 CNOV Office Visit (PLASMN ) -- SILVIA DIXON ([id number]) 1975 F Date Time Provider Department 08/16/24 11:00 AM LINDA DUGAN During your visit today, we recorded the following information about you: Linda Dugan MD 08/16/2024 1:39 PM Signed Plastic Surgery Post Op Note CC: post op HPI: Silvia Dixon is a 49 year old female who presents s/p Date of Surgery: 07/09/24 Surgery: Left Breast Oncoplastic Reduction and Right Breast Reduction for symmetry (Maintained previous Inferior Pedicles) Time Postop: 5 weeks Pt presents for routine post-op visit. Pain: well controlled with tylenol Drainage from incisions: denies Fever/chills: denies Antibiotics: no Drain output: n/a - JPx2 removed at BEST Activity: able to participate in ADLs within recommended restrictions Patient states that she is having some drainage from under her right breast. Hx Radiation Therapy: Yes, completed 06/06/13 to 07/19/13 Hx Chemotherapy: Yes completed 03/23/2023 Surgical pathology reviewed: right breast reduction 992 g, left oncoplastic reduction 433 g FINAL DIAGNOSIS A. Breast, right, mammoplasty: - Unremarkable skin and breast tissue. B. Breast, left, mammoplasty: - Unremarkable skin and breast tissue. C. 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 sucralfate (CARAFATE) 1 gram tablet Take 1 tablet by mouth before meals and at bedtime. venlafaxine ER (EFFEXOR XR) 37.5 mg 24 hr capsule Week #1: take venlafaxine 37.5 mg with 40 mg of fluoxetine daily. Week #2: take venlafaxine 75 mg with 20 mg of fluoxetine daily. Week #3: increase venlafaxine to 150 mg daily and stop fluoxetine. venlafaxine ER (EFFEXOR XR) 150 mg 24 hr capsule Take 1 capsule by mouth once daily. (Start week #3). calcium-cholecalciferol, D3, (OSCAL+D 250) 250 mg-3.125 mcg (125 unit) per tablet Take 1 tablet by mouth two times a day. lancets (TRUEPLUS LANCETS) 30 gauge Use with blood glucose test once daily tiZANidine (ZANAFLEX) 4 mg tablet Take 1 tablet by mouth every 8 hours as needed (muscle spasms). blood sugar diagnostic (TRUE METRIX GLUCOSE TEST STRIP) test strip Use with blood glucose test once daily buPROPion SR (WELLBUTRIN SR) 150 mg 12 hr tablet Take 1 tablet by mouth once daily. dulaglutide (TRULICITY) 0.75 mg/0.5 mL pen injector Inject 0.75 mg subcutaneously one time a week. Inject dose once per week. Discard Pen After FLUoxetine (PROZAC) 20 mg capsule Take 1 capsule by mouth once daily. Take with 40 mg dose for total daily dose of 60 mg. (Patient not taking: Reported on 07/04/2024) hydroCHLOROthiazide 25 mg tablet Take 1 tablet by mouth once daily. losartan (COZAAR) 100 mg tablet Take 1 tablet by mouth once daily. metFORMIN ER (GLUCOPHAGE XR) 500 mg 24 hr tablet Take 2 tablets by mouth daily with breakfast. omeprazole (PRILOSEC) 20 mg capsule Take 1 capsule by mouth two times a day. Blood Pressure Monitor (BLOOD PRESSURE KIT) 1 Each as needed. ibuprofen (ADVIL) 200 mg tablet Take 200 mg by mouth every 6 hours as needed. acetaminophen (TYLENOL) 500 mg tablet Take 1,000 mg by mouth every 8 hours as needed. elderberry fruit (ELDERBERRY ORAL) Take 1,000 mg by mouth once daily. Blood Pressure Cuff - Home Use BLOOD PRESSURE CUFF FOR HOME USE. DX: LABILE BLOOD PRESSURE ascorbic acid (VITAMIN C) 500 mg tablet Take 500 mg by mouth once daily. multivitamin tablet Take 1 tablet by mouth once daily. No current facility-administered medications on file prior to visit. LMP 06/18/2024 ( (more content not included)... Normal [facility] Bdr Office Visit Reporton 08-13-2024 Bdr Office Visit Report [facility] [address], [address] [place] [address] OFFICE VISIT Date of Service: 08/13/24 MR#: [id number] Acct: [id number] Name: SILVIA DIXON Rep #: [id number] : 1975 Provider: Dr. Alejandra lewis MD Age/Sex: 49/F [place] [facility] [place]: Signed Intake Vital Signs 06/22/24 10:10 07/31/24 09:43 08/13/24 13:09 Height 5 ft 6 in 5 ft 6 in 5 ft 6 in Weight: 274 lb BMI 44.2 BP 143/89 H Intake Visit Reasons: 2 wk D Sonja Simms Detention Officer Required: No Feel stressed/tense/nervous/anx ious/difficulty sleeping: not at all Allergies ketorolac tromethamine (From Toradol) Allergy (Verified 08/13/24 13:11) Hives nitrofurantoin Allergy (Verified 08/13/24 13:11) Hives Medications ???Medication ???Instructions ???Recorded ???Confirmed ???Type multivitamin with folic acid 400 1 tab PO DAILY 02/17/14 08/13/24 History mcg tablet omeprazole 20 mg capsule,delayed 20 mg PO BID 02/17/14 08/13/24 History release dulaglutide 1.5 mg/0.5 mL 1.5 mg subcut QWEEK 06/22/22 08/13/24 History subcutaneous pen injector (Trulicity) metformin 500 mg tablet 500 mg PO BID 06/22/22 08/13/24 History ascorbate calcium (vitamin C) 500 500 mg PO DAILY 05/24/23 08/13/24 History mg tablet naproxen 500 mg tablet 500 mg PO BID PRN pain #30 tabs 11/25/23 08/13/24 Rx sucralfate 1 gram tablet (Carafate) 1 g PO BID 05/28/24 08/13/24 History bupropion HCl 150 mg tablet,12 hr 150 mg PO DAILY 07/24/24 08/13/24 History sustained-release calcium 250 mg (as 1 tab PO BID 07/24/24 08/13/24 History carbonate)-vitamin D3 3.125 mcg (125 unit) tablet hydrochlorothiazide 25 mg tablet 25 mg PO DAILY 07/24/24 08/13/24 History losartan 100 mg tablet 100 mg PO DAILY 07/24/24 08/13/24 History venlafaxine 150 mg 150 mg PO DAILY 07/24/24 08/13/24 History capsule,extended release 24 hr enoxaparin 40 mg/0.4 mL 40 mg (0.4 mL) subcut DAILY 7 days 07/31/24 08/13/24 Rx subcutaneous syringe (Lovenox) #2.8 mL Patient : No : No PFSH Medical History Wears contact lenses Wears glasses Cancer Depression Anxiety Arthritis Migraine headache History of hiatal hernia Gastric reflux Non-smoker History of stress test History of echocardiogram Hypertension Diabetes Leg pain Anxiety and depression History of breast cancer Pulmonary embolism Surgical History S/P endometrial ablation Hx of bilateral breast reduction surgery History of bilateral breast reduction surgery Hx of tubal ligation History of lumpectomy History of mastectomy Family History Mother A-fib CVA (cerebral vascular accident) Father A-fib Grandmother Breast cancer Social History number of children: 2 current occupational status: unemployed Smoking Status: Never smoker alcohol intake: never substance use type: does not use caffeine: Yes what type of physical activity do you participate in: walking seatbelt use: always do you feel safe at home: Yes additional social history: [employer] Patient is unemployed HPI 2 wk D Sonja Simms Details: SILVIA DIXON is a 49 year old who presents for postop doing well nofevers pain or foul discharge, did well no complaints. History 2 Elective abortions Hx Para 2 Spontaneous abortions Hx # Term Pregnancies Ectopic pregnancies Hx # Pregnancies Multiple births # of living children Past Pregnancies Del. Date Name GA/Weeks Outcome Route Bth Weight Gen Labor Lgth Anesthesia Del Locatn Provider FOB Unknown 1999 Jhon live - full term Debbie Arnold Unknown 2001 Jovan live - full term Debbie Arnold ROS Const Constitutional: Reports system reviewed and no additional complaints, except as documented GI GI: Denies abdominal pain, cramping, nausea or vomiting : Denies pelvic pain, urinary frequency, urinary incontinence, urinary urgency, vaginal discharge, vaginal dryness or vaginal odor Exam Const General: cooperative, healthy appearing, comfortable and no acute distress GI Inspection: normal to inspection Palpation: soft and nontender Coding Level of Care Code No Charge Diagnoses Abnormal uterine bleeding N93.9 Assessment and Plan Assessment and Plan (1) Abnormal uterine bleeding: Status: Acute Comment: proceed with ablation. not hormonal candidate Plan fu annually 08/13/24 1330 Date Alejandra Wick MD Cosigner Signature: Date _ (more content not included)... Normal [facility] Bedside Glucoseon 07-31-2024 FINGERSTICK GLU 115 mg/dL High 74-106 [facility] Comment on above: Result Comment: BARAK COHEN OF PATIENT CARE PER NURSING PROTOCOL Performed By: #### L 501.080 #### [facility] [address] [place], [address] CBC-Complete Blood Cnt No Di ffon 07-31-2024 Erythrocyte distribution width (RBC) [Ratio] 13.0 % Normal 11.6-14.6 [facility] Comment on above: Performed By: #### L 100.0500, L400.7600, BTSPAT #### [facility] [address] [place], [address] Hematocrit (Bld) [Volume fraction] 40.6 % Normal 37-47 [facility] Comment on above: Performed By: #### L 100.0500, L400.7600, BTSPAT #### [facility] [address] [place], [address] Hemoglobin (Bld) [Mass/Vol] 13.6 g/dL Normal 12.0-15.0 [facility] Comment on above: Performed By: #### L 100.0500, L400.7600, BTSPAT #### [facility] [address] [place], [address] MCH (RBC) [Entitic mass] 29.5 pg Normal 27.0-32.0 [facility] Comment on above: Performed By: #### L 100.0500, L400.7600, BTSPAT #### [facility] [address] [place], [address] MCHC (RBC) [Mass/Vol] 33.5 g/dL Normal 32-36 [facility] Comment on above: Performed By: #### L 100.0500, L400.7600, BTSPAT #### [facility] [address] [place], [address] MCV (RBC) [Entitic vol] 88.1 fL Normal 81-99 [facility] Comment on above: Performed By: #### L 100.0500, L400.7600, BTSPAT #### [facility] [address] [place], [address] Platelet mean volume (Bld) [Entitic vol] 9.7 fL Normal 6.2-12.0 [facility] Comment on above: Performed By: #### L 100.0500, L400.7600, BTSPAT #### [facility] [address] [place], [address] Platelets (Bld) [#/Vol] 339 10*3/uL Normal 150-450 [facility] Comment on above: Performed By: #### L 100.0500, L400.7600, BTSPAT #### [facility] [address] [place], [address] RBC (Bld) [#/Vol] 4.61 10*6/uL Normal 4.2-5.4 [facility] Comment on above: Performed By: #### L 100.0500, L400.7600, BTSPAT #### [facility] [address] [place], [address] RDW SD 41.8 fl Normal 35.1-43.9 [facility] Comment on above: Performed By: #### L 100.0500, L400.7600, BTSPAT #### [facility] [address] [place], [address] WBC (Bld) [#/Vol] 8.9 10*3/uL Normal 4.4-11.0 [facility] Comment on above: Performed By: #### L 100.0500, L400.7600, BTSPAT #### [facility] Laboratory [address] [place], [address] Discharge Instructionon 07-13 Discharge Instruction [facility] Medical Records Department [address] [place] [address] Instructions for Home/Discharge Instructions 07/31/24 1221 MR#: [id number] Acct: [id number] Name: DIXONSILVIA Rep #: [id number] : 1975 49 From: Alejandra Wick MD PCP: Dr. Randy Zhang MD Status:[facility] Discharge Instructions Diet Discharge Diet: No restrictions Activity Discharge Activity: Return to Normal Activity, May Shower and May Take a Tub Bath (after 1 week) May resume sexual activity in: 1-2 weeks Weight Bearing Status: Weight bearing as tolerated Lifting Restrictions: none Dressing / Incision Call your doctor if you observe: Fever of 101 or Higher, Using more than 1 pad per hour, Shortness of breath and Uncontrolled pain Follow Up Care Please Follow Up With: Alejandra Wick MD When: Call [phone] to schedule appointment. Test Results: Test results from this visit will be discussed in further detail at your follow-up appointment, if applicable. Discharge Plan Admission Attending Provider: Alejandra Wick Primary Care Provider: Randy Zhang Instructions Print Language: Zambian Discharge Orders/Prescriptions Prescriptions: New enoxaparin [Lovenox] 40 mg/0.4 mL syringe 40 mg subcut DAILY 7 Days Qty: 2.8 0RF No Action metformin 500 mg tablet 500 mg PO BID Trulicity 1.5 mg/0.5 mL pen injector 1.5 mg subcut QWEEK ascorbate calcium (vitamin C) 500 mg tablet 500 mg PO DAILY naproxen 500 mg tablet 500 mg PO BID PRN (Reason: pain) Qty: 30 2RF Rx Instructions: administer with food or milk sucralfate [Carafate] 1 gram tablet 1 g PO BID omeprazole 20 MG capsule 20 mg PO BID Patient Comments: acid reflux multivitamin with folic acid 1 TABLET tablet 1 tab PO DAILY Patient Comments: supplement venlafaxine 150 mg capsule,extended release 24hr 150 mg PO DAILY bupropion HCl 150 mg tablet sustained-release 12 hr 150 mg PO DAILY hydrochlorothiazide 25 mg tablet 25 mg PO DAILY losartan 100 mg tablet 100 mg PO DAILY calcium carbonate-vitamin D3 250 mg-3.125 mcg (125 unit) tablet 1 tab PO BID Referrals / Follow Up: Randy Zhang MD [Primary Care Provider] - Disposition Disposition (needs filled in before D/C Order can be placed): Home, Self Care 07/31/24 1224 Alejandra Wick MD CC: Dr. Randy Zhang MD Signed [facility] MR/POSTOP.[facility] 07-31-2024 MR/POSTOP.[facility] Medical Records Department [address] [place] [address] Anesthesia Postop Eval I 07/31/24 1215 MR#: [id number] Acct: [id number] Name: SILVIA DIXON Rep #: [id number] : 1975 49 From: Harmony Mendiola COMPLETIONS ENGINEER PCP: Dr. Randy Zhang MD Status:[facility] Y Race: C Location: [place] [address] Anesthesia: Postop Eval I Current Vital Signs Temperature: 97.5 F Pulse Rate: 91 Blood Pressure: 160/96 Respiratory Rate: 16 Pulse Ox: 96 Oxygen Delivery Method: Room Air Assessment Airway patent: Yes Spontaneous unlabored respirations: Yes Mental status: Awake nausea: No Vomiting: No Anesthesia Complication: No Fluid Hydration Crystalloid volume administer (ml): 30 Total IV fluid infused: 30 Progress Note Anesthesia document: Postop Eval 1 completed: Yes 07/31/24 1216 Date Harmony Mendiola COMPLETIONS ENGINEER Cosigner Signature: Date CC: Signed [facility] MR/RYYMDROT3eg 07-31-2024 [facility] Medical Records Department [address] [place] [address] Anesthesia Postop Eval II 07/31/24 1601 MR#: [id number] Acct: [id number] Name: SILVIA DIXON Rep #: [id number] : 1975 49 From: Jose J Quijano MD PCP: Dr. Randy Zhang MD Status:[facility] Y Race: C Location: [facility] Anesthesia Postop Eval I Sum Postop Eval Completion status Anesthesia document: Postop Eval 1 completed: Yes Anesthesia Postop Eval I Summary Anesthesia Postop Eval I Summary: Anesthesia Postop Eval I: Assessment Summary Airway patent Yes 07/31/24 12:16 COMPLETIONS ENGINEER.JDEF Spontaneous unlabored Yes 07/31/24 12:16 COMPLETIONS ENGINEER.JDEF respirations Mental status Awake 07/31/24 12:16 COMPLETIONS ENGINEER.JDEF nausea No 07/31/24 12:16 COMPLETIONS ENGINEER.JDEF Vomiting No 07/31/24 12:16 COMPLETIONS ENGINEER.JDEF Anesthesia Postop Eval I: Fluid Summary Crystalloid volume administer 30 07/31/24 12:16 COMPLETIONS ENGINEER.JDEF (ml) Colloids volume administered ( ml) Blood Product volume administered (ml) Total IV fluid infused 30 07/31/24 12:16 COMPLETIONS ENGINEER.JDEF Anesthesia Postop Eval I: Summary Notes Anesthesia Complication No 07/31/24 12:16 COMPLETIONS ENGINEER.JDEF Anesthesia Complication Comment: Post-operative progress note Anesthesia: Postop Eval II Evaluation Mental status: Awake and Calm Pain Level: 1 nausea: No Vomiting: No Complications Anesthesia Complication: No 07/31/24 1602 Date Jose J Quijano MD Cosigner Signature: Date CC: Signed Normal [facility] Operative Reporton 4 Operative Report [facility] Medical Records Department [address] [place] [address] Operative Report 07/31/24 1207 MR#: [id number] Acct: [id number] Name: SILVIA DIXON Rep #: [id number] : 1975 49 From: Alejandra Wick MD PCP: Dr. Randy Zhang MD Status:[facility] Location: [place] [address] Problems Associated Problem List Diagnoses (1) Climacteric: (2) Pulmonary embolism: (3) Abnormal uterine bleeding: Operative Report (Standard) Operative Information Surgery/Procedure Performed: dilation and curettage hysteroscopy demi ablation Surgeon: Alejandra Wick Date of Procedure: 07/31/24 Procedure Start Time: 11:50 Procedure Stop Time: 11:59 Pre-Operative Diagnosis: see problem list Post-Operative Diagnosis: same Select all DRAINS/GRAFTS/IMPLANTS that apply: None Type of Anesthesia: IV Sedation and Local Estimated Blood Loss: 50 Specimen collected: Yes Description of specimen(s) removed: endometrial curettings Description of surgery: Patient was prepped and draped in a normal sterile fashion under MAC anesthesia. A weighted speculum was placed in the vagina and the anterior lip of the cervix was grasped with a single-tooth tenaculum. A paracervical block was placed with 1% lidocaine. Cervix was progressively dilated to allow passage of a 5 mm hysteroscope. The lining was fully visualized and noted to have normal lining with no abnormalities. Uterine sounded to 9.5 cm. Curettage was performed and tissue removed, sent to pathology. The Demi device was opened and the cavity length was found to be 5.5 cm. Device was inserted into the uterus and balloon inflated and device deployed. Integrity of the cavity was confirmed and a 2 minute treatment cycle was completed without complication. All instruments were removed from the vagina and excellent hemostasis was noted. Patient was awoken and taken to recovery in stable condition. Surgical Findings: nl uterus Customer Operations Associate field service consultant: No Complications Complications: No Multi Select Codes Urinary/Genital Urinary/Genital CPT Codes: 39644 Demi/Novasure 07/31/24 1221 Cosigner Signature (if applicable): CC: Dr. Alejandra Wick MD; Dr. Randy Zhang MD Signed Normal [facility] ,Urineon 07-31-2024 Beta HCG ( test) Ql (U) Negative Normal [facility] Comment on above: Result Comment: Very dilute urine specimens, as indicated by a low specific gravity, may not contain service representative levels of hCG. If is still suspected, a first morning urine specimen should be collected 48 hours later and tested. Performed By: #### L 100.0500, L400.7600, BTSPAT #### [facility] [address] [place], [address] Surgery Specimen Level Cecilia 07-31-2024 Surgery Specimen Level IV Patient Age/Sex Location Account Attending Physician SILVIA DIXON 49/ [facility] [id number] Dr. Alejandra Wick MD Specimen: [id number] Received: 07/31/24 Status: AMRV Mendozaleonie Num: [id number] Spec Type: ENDOM BX/C Subm Dr: Dr. Alejandra Wick MD HEADER OPERATION: Hysterectomy, D C PRE-OP DIAGNOSIS: Endouterine bleeding TISSUE SUBMITTED: Endometrial curettings MICROSCOPIC DIAGNOSIS Endometrial curettings: Proliferative endometrium. Fragments of benign endocervical mucosa. 08/02/2024 MICROSCOPIC DESCRIPTION Slides are reviewed. GROSS DESCRIPTION Received in fixative is one container labeled with the patient's name and designated Endometrial curettings. The specimen consists of multiple irregular fragments of brownish- carlton soft tissue mixed with blood clots that in aggregate measure 2.0 x 1.9 x 0.3 cm. The specimen is totally submitted in one cassette. JIMICandis 08/01/2024 TC:4 CPT:48179 Patient Age/Sex Location Account Attending Physician SILVIA DIXON 49/F [facility] [id number] Dr. Alejandra iWck MD Signed (signature on file) Dr. Ricci Stokes MD 08/02/24 1504 Normal [facility] Comment on above: Performed By: #### L 499.0043 #### [facility] [address] [place], [place], [address] Type AND Screen - PAT ONLYon 07-31-2024 ABO and Rh group Nom (Bld) Blood group O Rh(D) positive Normal [facility] Comment on above: Order Comment: Reaso n for Laboratory Test PRE-OP [id number] No N N S 09 Hysteroscopy,D C Demi Performed By: #### L 100.0500, L400.7600, BTSPAT #### [facility] [address] [place], [place], [address] CNOVon 07-19-2024 CNOV Office Visit (PLASMN ) -- SILVIA DIXON ([id number]) 1975 F Date Time Provider Department 07/19/24 11:30 AM ARLETH ALVA During your visit today, we recorded the following information about you: Temperature Pulse Respiration Blood pressure 96.1 degrees 122/minute 15/minute 131/79 Weight Height 127.9 kg 1.676 m Arleth Alva APRN.CAST SHELL GRINDER 07/19/2024 1:38 PM Signed Plastic Surgery Post Op Note CC: post op HPI: Silvia Dixon is a 49 year old female who presents s/p Date of Surgery: 07/09/24 Surgery: Left Breast Oncoplastic Reduction and Right Breast Reduction for symmetry (Maintained previous Inferior Pedicles) Time Postop: 10 days Pt presents for initial post-op visit. Pain: control is good with medication. Drainage from incisions: denies Fever/chills: denies Antibiotics: no Drain output JPx 2: <15cc per day x48 hours Activity: able to participate in ADLs within recommended restrictions Appetite: improving denies concerns Hx Radiation Therapy: Yes, completed 06/06/13 to 07/19/13 Hx Chemotherapy: Yes completed 03/23/2023 Surgical pathology reviewed: right breast reduction 992 g, left oncoplastic reduction 433 g FINAL DIAGNOSIS A. Breast, right, mammoplasty: - Unremarkable skin and breast tissue. B. Breast, left, mammoplasty: - Unremarkable skin and breast tissue. C. 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 sucralfate (CARAFATE) 1 gram tablet Take 1 tablet by mouth before meals and at bedtime. venlafaxine ER (EFFEXOR XR) 37.5 mg 24 hr capsule Week #1: take venlafaxine 37.5 mg with 40 mg of fluoxetine daily. Week #2: take venlafaxine 75 mg with 20 mg of fluoxetine daily. Week #3: increase venlafaxine to 150 mg daily and stop fluoxetine. venlafaxine ER (EFFEXOR XR) 150 mg 24 hr capsule Take 1 capsule by mouth once daily. (Start week #3). calcium-cholecalciferol, D3, (OSCAL+D 250) 250 mg-3.125 mcg (125 unit) per tablet Take 1 tablet by mouth two times a day. lancets (TRUEPLUS LANCETS) 30 gauge Use with blood glucose test once daily tiZANidine (ZANAFLEX) 4 mg tablet Take 1 tablet by mouth every 8 hours as needed (muscle spasms). blood sugar diagnostic (TRUE METRIX GLUCOSE TEST STRIP) test strip Use with blood glucose test once daily buPROPion SR (WELLBUTRIN SR) 150 mg 12 hr tablet Take 1 tablet by mouth once daily. dulaglutide (TRULICITY) 0.75 mg/0.5 mL pen injector Inject 0.75 mg subcutaneously one time a week. Inject dose once per week. Discard Pen After FLUoxetine (PROZAC) 20 mg capsule Take 1 capsule by mouth once daily. Take with 40 mg dose for total daily dose of 60 mg. (Patient not taking: Reported on 07/04/2024) hydroCHLOROthiazide 25 mg tablet Take 1 tablet by mouth once daily. losartan (COZAAR) 100 mg tablet Take 1 tablet by mouth once daily. metFORMIN ER (GLUCOPHAGE XR) 500 mg 24 hr tablet Take 2 tablets by mouth daily with breakfast. omeprazole (PRILOSEC) 20 mg capsule Take 1 capsule by mouth two times a day. Blood Pressure Monitor (BLOOD PRESSURE KIT) 1 Each as needed. ibuprofen (ADVIL) 200 mg tablet Take 200 mg by mouth every 6 hours as needed. acetaminophen (TYLENOL) 500 mg tablet Take 1,000 mg by mouth every 8 hours as needed. elderberry fruit (ELDERBERRY ORAL) Take 1,000 mg by mouth once daily. Blood Pressure Cuff - Home Use BLOOD PRESSURE CUFF FOR HOME USE. DX: LABILE BLOOD PRESSURE ascorbic acid (VITAMIN C) 500 mg tablet Take 500 mg by mouth once daily. multivitamin tablet Take 1 tablet (more content not included)... Normal [facility] ANES POSTPROC EVALon 024 ANES POSTPROC EVAL HNO ID: [id number] Author: SUKUMAR NAVARRO MD Service: Anesthesiology Author Type: Anesthesiologist Type: Anesthesia Postprocedure Evaluation Filed: 07/09/2024 13:10 Note Text: POST ANESTHESIA EVALUATION NOTE : 1975 Procedure Summary Date: 07/09/24 Room / Location: [address] Anesthesia Start: 0734 Anesthesia Stop: 1231 Procedure: REDUCTION BREAST BILATERAL (Bilateral: Breast) Diagnosis: HX: breast cancer S/P breast reconstruction Breast asymmetry following reconstructive surgery (HX: breast cancer [Z85.3]) (S/P breast reconstruction [Z98.890]) (Breast asymmetry following reconstructive surgery [N65.1]) Surgeons: Linda Dugan MD Responsible Provider: Ermelinda Olguin MD Anesthesia Type: general ASA Status: 3 Anesthesia Type: general Airway Type: ETT Last Vitals Vitals Value Taken Time BP 148/76 07/09/24 1300 Temp 36 ?C (96.8 ?F) 07/09/24 1225 Pulse 96 07/09/24 1308 Resp 18 07/09/24 1300 SpO2 94 % 07/09/24 1308 Vitals shown include unfiled device data. Post Anesthesia Patient Status Patient Evaluation: PACU. PACU/ICU Patient Condition: stable. Anticipated Disposition: phase 2 then home. Neurological Status: aware and responsive. Pulmonary Status: breathing comfortably on room air Airway Control: returned to baseline unsupported. Cardiovascular Status: stable. Pain Management: clinically adequate Postoperative Hydration: acceptable. Intraoperative Events: no significant anesthesia events Post Operative Nausea/Vomiting Status: no significant post operative nausea or vomiting Recommendation: continue current plan of care. Anesthesia Observations No Documentation SIGNATURE: Sukumar Navarro MD PATIENT NAME: Silvia Dixon DATE: July 09, 2024 TIME: 1:10 PM CSN: [id number] Normal [facility] ANES PRE-OPon 07-09-2024 ANES PRE-OP HNO ID: [id number] Author: ERMELINDA OLUGIN MD Service: Anesthesiology Author Type: Physician Type: Anesthesia Preprocedure Evaluation Filed: 07/09/2024 07:24 Note Text: ANESTHESIOLOGY DAY OF SURGERY NOTE : 1975 Procedure Information Date/Time: 07/09/24 0730 Procedure: REDUCTION BREAST BILATERAL (Bilateral: Breast) Location: [address] Surgeons: Linda Dugan MD Estimated body mass index is 45.55 kg/m? as calculated from the following: Height as of 06/14/24: 167.6 cm (5' 6"). Weight as of this encounter: 128 kg (282 lb 3 oz). Most recent hematocrit and potassium results: Hematocrit 44.4 06/14/2024 Potassium 3.5 06/14/2024 Relevant Problems ANESTHESIA (+) PONV (postoperative nausea and vomiting) CARDIO (+) HTN (hypertension) ENDO (+) Type 2 diabetes mellitus with hyperglycemia, without long-term current use of insulin (HCC) GI (+) Hiatal hernia with GERD without esophagitis NEURO-PSYCH (+) Personal history of other venous thrombosis and embolism (CODE) (+) Personal history of pulmonary embolism BMI 45 I - PHYSICAL EVALUATION AIRWAY Patient intubated: No. Tracheostomy tube not present Mallampati: II. TM distance: >3 FB. Neck ROM: full ROM without neurological symptoms. Mouth opening: adequate. Short neck: no. Thick neck: no DENTAL Dental findings: missing tooth/teeth. II - ANESTHESIA PLAN ASA Score: 3 Anesthetic Plan: general Airway type: ETT The patient is not a current smoker. NPO Status: adequate Beta Jj Monitoring Plan Monitoring plan: standard ASA. Post Procedure Analgesic Plan Postoperative analgesic plan: parenteral or oral opioids. Informed Consent Anesthetic risks, benefits, alternatives, personnel and consent discussed: yes. Patient / Responsible Constitution Party agrees to proceed: yes Patient / Surrogate agrees to blood products: blood products not planned DNR status not reviewed with patient and/or family prior to surgery. Significant changes in the patient condition since the History and Physical, not otherwise documented in primary service progress note: no. Potential Anesthesia issues that may suggest increased risk of complications or contraindication to planned procedure: none. Vitals Value Taken Time BP 129/79 07/09/24712 Pulse 95 07/09/24712 Resp 18 07/09/24712 Temp 36 ?C (96.8 ?F) 07/09/24712 SpO2 94 % 07/09/24712 Facility-Administered Medications as of 07/09/2024 Medication Dose Route Frequency [COMPLETED] acetaminophen 1,000 mg tab(s) (TYLENOL) 1,000 mg ORAL ONCE [COMPLETED] promethazine 12.5 mg tab(s) (PHENERGAN) 12.5 mg ORAL Pre-Op Once lidocaine (PF) 10 mg/mL (1 %) 1-2 mg injection (XYLOCAINE) 0.1-0.2 mL INTRADERMAL PRN NaCl 0.9% iv flush bag 20 mL INTRAVENOUS PRN ceFAZolin 2 g in dextrose (iso-osmotic) 50 mL (ANCEF,KEFZOL) 2 g INTRAVENOUS Pre-Op Once Outpatient Medications as of 07/09/2024 Medication Sig docusate sodium (COLACE) 100 mg capsule Take 1 capsule by mouth two times a day as needed for constipation. oxyCODONE IR (ROXICODONE) 5 mg immediate release tablet Take 1 tablet by mouth every 8 hours as needed for pain for up to 5 days. Blood Pressure Monitor (BLOOD PRESSURE KIT) 1 Each as needed. ibuprofen (ADVIL) 200 mg tablet Take 200 mg by mouth every 6 hours as needed. acetaminophen (TYLENOL) 500 mg tablet Take 1,000 mg by mouth every 8 hours as needed. elderberry fruit (ELDERBERRY ORAL) Take 1,000 mg by mouth once daily. Blood Pressure Cuff - Home Use BLOOD PRESSURE CUFF FOR HOME USE. DX: LABILE BLOOD PRESSURE ascorbic acid (VITAMIN C) 500 mg tablet Take 500 mg by mouth once daily. multivitamin tablet Take 1 tablet by mouth once daily. I have interviewed and examined the patient. I have reviewed the medical record and/or the pre-anesthesia evaluation, pertinent labs, and test results. This contains updated information obtained within 48 hours of Surgery/Procedure. SIGNATURE: Ermelinda Olguin MD PATIENT NAME: Silvia Dixon DATE: July 09, 2024 TIME: 7:23 AM CSN: [id number] Normal [facility] HISTORY PHYSICALon HISTORY PHYSICAL HNO ID: [id number] Author: LINDA DUGAN MD Service: Plastic Surgery Author Type: Physician Type: H&P Filed: 07/09/2024 07:20 Note Text: UPDATED HISTORY AND PHYSICAL EXAMINATION SERVICE DATE: 07/09/2024 SERVICE TIME: 7:12 AM SENSITIVE EXAMINATION CONSENT: The sensitive examination was discussed with the Patient or Patient's Authorized Assessment Expert. As applicable, any other physician, advance practice provider, medical student, or other health professional student that will be observing or involved in the sensitive examination for educational or training purposes was discussed with the Patient or Authorized Assessment Expert. The Patient or Authorized Assessment Expert has agreed to proceed with the sensitive examination. (Sensitive examination includes inspection and/or palpation of the breasts, pelvis, prostate and anorectal regions) PHYSICAL EXAM MUST BE COMPLETED ON ADMISSION The History and Physical (completed in the past 30 days) has been reviewed and the patient has been examined. The contents accurately reflect the patient's condition with the following additions or revisions since the HANDP was completed. Examination indicates no changes. Exam: General: Awake, alert Cardiac: Regular rate and rhythm, 2+ radial pulses Pulmonary: Nonlabored respirations, no audible wheezing This HANDP can be found in the attached 06/14/24. SIGNATURE: May Campbell DO PATIENT NAME: Silvia Dixon DATE: July 09, 2024 TIME: 7:12 AM Linda Dugan MD [facility] OPERATIVE NOon 07-09-2024 OPERATIVE NO HNO ID: [id number] Author: LINDA DUGAN MD Service: Plastic Surgery Author Type: Physician Type: Operative Report Filed: 07/09/2024 14:03 Note Text: PLASTIC SURGERY OPERATION NOTE LOG ID: [id number] Surgery/Procedure Date: 07/09/2024 Incision/Procedure Start Time: 8:18 AM Incision Close/Procedure End Time: 11:59 AM Surgeon(s)/Proceduralist(s ) and Advertising Copywriter(s): Surgeons and Role: * Linda Dugan MD - Primary * May Campbell DO - Fellow Procedure(s): Left Breast Oncoplastic Reduction and Right Breast Reduction for symmetry (Maintained previous Inferior Pedicles) Anesthesia: General Findings: right breast reduction 992 g, left oncoplastic reduction 433 g Indications: Ms Dixon is a 49 year old female with a history of left breast cancer for which she underwent left partial mastectomy by Dr Tee and left oncoplastic reduction and right breast reduction for symmetry with inferior pedicles by Dr Alvarado on. She had postoperative radiation to the left breast. She has marked asymmetry and wants to have improvement. I will plan for breast reduction revision. I discussed higher rates of complication ability for symmetry with a history of radiation. Procedure Details: The patient was met in the preoperative holding area and informed consent was reiterated. She was marked with a Matute pattern with 9 cm vertical limbs. An inferior pedicle was planned with an 8 cm pedicle. She was then brought into the operating room and laid in the supine position. The patient was sat up to 90 degrees to ensure that the bed was working properly and the patient was positioned well. She was then prepped and draped in the usual sterile fashion. A 42 mm cookie cutter was used to excise the the nipple areolar complex and the inferior pedicle was de-epitheliated. Her Matute pattern markings were incised making sure to maintain the dermis over the superomedial pedicle. The inferior pedicle was developed and the lower breast tissue was removed. A mastectomy flapof at least 2 cm was made superiorly to the level of the clavicles. The weight of the right breast tissue was 992 g and the weight of the left breast tissue was 433 g. She had a left lumpectomy calcified fat necrotic mass that was removed (measured 6.5 cm x 4 cm) and sent to pathology separately. This was just superior to the NAC. Both breast reductions were performed in the same fashion. Both breast pockets were irrigated copiously with normal saline followed by Irricept solution. A 15 Fr round channel drain was placed in each side and secured to the skin with 3-0 Nylon suture. The skin was tailor tacked and the patient was sat up to assess symmetry and to decide upon nipple areolar complex positioning. We were satisfied with the symmetry. Using a 38 mm cookie cutter the nipple areolar complexes. We then laid the patient back down and excised the new nipple areolar complexes by de-epitheliating. We then inset the nipple areolar complexes as well as closed the skin with 3-0 Monocryl deep dermal sutures and 4-0 and 5-0 Monocryl running subcuticular. A 3-0 PDS was placed at the t-junction. There were no concerns for tissue or nipple areolar complex malperfusion throughout and at the end of the case. Prineo was used followed by primapore tape. The patient tolerated the procedure well and was able to be extubated without difficulty and taken back to the post-anesthesia care unit in good condition. I performed the entire procedure with resident assistance. Estimated Blood Loss: 50 mls Specimens: see below ID Type Source Tests Collected by Time Destination A : Tissue Breast Reduction/Revision, Right, Mammoplasty SURGICAL PATHOLOGY Linda Dugan MD 07/09/2024 8:57 AM B : Tissue Breast Reduction/Revision, Left, Mammoplasty SURGICAL PATHOLOGY Linda Dugan MD 07/09/2024 9:30 AM C : left lumpectomy defect Tissue Breast, Left, Lumpectomy SURGICAL PATHOLOGY Linda Dugan MD 07/09/2024 9:32 AM Complications: None Pre-Op/Pre-Procedure Diagnosis: Personal history of left breast cancer Acquired asymmetry and deformity of breasts Post-Op/Post-Procedure Diagnosis: Same as above SIGNATURE: Linda Dugan MD PATIENT NAME: Silvia Dixon DATE: July 09, 2024 TIME: 1:54 PM PAGER/CONTACT #: Normal [facility] SURGICAL PATHOLOGYon 024 CASE REPORT Normal [facility] Comment on above: Order Comment: Bettina garcia Type: TISSUE SPECIMEN Ordering Facility: [facility] Address: [address] [place] [address] Result Comment: Surg ical Pathology Report Case: [id number] Authorizing Provider: Linda Dugan MD Collected: 07/09/2024 09:32 AM Ordering Location: Ambulatory Surgery Received: 07/09/2024 12:33 PM Pathologist: García Qiu MD Specimens: A) - Breast Reduction/Revision, Right, Mammoplasty B) - Breast Reduction/Revision, Left, Mammoplasty C) - Breast, Left, Lumpectomy, left lumpectomy defect Performed By: #### S #### [facility] CLIA [id number] [address] [place] [address] [place] CLINICAL HISTORY Normal [facility] Comment on above: Order Comment: Bettina garcia Type: TISSUE SPECIMEN Ordering Facility: [facility] Address: [address] [place] [address] Result Comment: Pre- op diagnosis: HX: breast cancer [Z85.3] S/P breast reconstruction [Z98.890] Breast asymmetry following reconstructive surgery [N65.1] Performed By: #### S #### [facility] CLIA [id number] [address] [place] [address] [place] FINAL DIAGNOSIS Normal [facility] Comment on above: Order Comment: Speci men Type: TISSUE SPECIMEN Ordering Facility: [facility] Address: [address] [place] [address] Result Comment: A. B reast, right, mammoplasty: - Unremarkable skin and breast tissue. B. Breast, left, mammoplasty: - Unremarkable skin and breast tissue. C. Breast, left lumpectomy defect, unoriented excision: - Fat necrosis, dense stromal fibrosis, and calcifications consistent with prior lumpectomy cavity site. JR 07/12/2024 Performed By: #### S #### [facility] CLIA [id number] [address] [place] [address] [place] FINAL PERFORMING LAB Normal [facility] Comment on above: Order Comment: Speci men Type: TISSUE SPECIMEN Ordering Facility: [facility] Address: [address] [place] [address] Result Comment: Diag nostic interpretation performed at [facility], [address] [place] [address] CLIA# [id number] Education Officer: Kwadwo Kamara M.D. Performed By: #### S #### [facility] CLIA [id number] [address] [place] [address] [place] GROSS DESCRIPTION Normal [facility] Comment on above: Order Comment: Speci men Type: TISSUE SPECIMEN Ordering Facility: [facility] Address: [address] [place] [address] Result Comment: A. B reast Reduction/Revision, Right, Mammoplasty Received in formalin labeled " breast reduction/revision, right, mammoplasty" are multiple fragments of fibrofatty breast tissue and skin, ranging in size from 7.0 cm to 21.0 cm in greatest dimension and weighing 1056.5 g in aggregate. The skin is unremarkable. The breast tissue is composed of delicate fibrous tissue (10%) with unremarkable adipose tissue. Assessment Expert sections are submitted in cassettes A1-A2, to include skin in A1. The specimen was removed from the patient on 07/09/2024 at 08:57 and placed in formalin at 12:30. B. Breast Reduction/Revision, Left, Mammoplasty Received in formalin labeled " breast reduction/revision, left, mammoplasty" are multiple fragments of fibrofatty breast tissue and skin, ranging in size from 4.5 cm to 23.5 cm in greatest dimension and weighing 451.0 g in aggregate. The skin is unremarkable. The breast tissue is composed of delicate fibrous tissue (10%) with unremarkable adipose tissue. Assessment Expert sections are submitted in cassettes B1-B2, to include skin in B1. The specimen was removed from the patient on 07/09/2024 at 09:30 and placed in formalin at 12:30. C. Breast, Left, Lumpectomy Received in formalin, labeled "left lumpectomy defect" is an unoriented, firm portion of carlton-yellow tissue, weighing 24.0 g, and measuring 6.8 x 4.2 x 2.3 cm. The outer surface is inked black. Sectioning reveals yellow-white, nearly entirely calcified cut surfaces. Assessment Expert sections are submitted in cassettes C1-C6, following light decalcification in formic acid. The specimen was removed from the patient on 07/09/2024 at 09:10 and placed in formalin at 09:49. AKA July 10, 2024 10:17 AM Gross examination performed at [facility], [address] [place] [address] Performed By: #### S #### [facility] CLIA [id number] [address] [place] [address] [place] C-REACTIVE PROTEINon 024 CRP [Mass/Vol] 0.3 mg/dL NINF - 0.9 mg/dL [facility] CRP [Mass/Vol]on 07-04-2024 Interpretation and review of laboratory results Normal [facility] Bdr Office Visit Reporton 06-22-2024 Bdr Office Visit Report [facility], [address] [place] [address] OFFICE VISIT Date of Service: 06/22/24 MR#: [id number] Acct: [id number] Name: DIXONSILVIA Rep #: [id number] : 1975 Provider: Dr. Alejandra lewis MD Age/Sex: 49/F [place] [facility] [place]: Signed Intake Vital Signs 06/18/24 12:18 06/22/24 10:08 06/22/24 10:10 Height 5 ft 6 in 5 ft 6 in 5 ft 6 in Weight: 272 lb BMI 43.9 BP 128/83 H Intake Visit Reasons: AUB ED FU Detention Officer Required: No Is patient in pain?: No Allergies ketorolac tromethamine (From Toradol) Allergy (Verified 06/22/24 10:09) Hives nitrofurantoin Allergy (Verified 06/22/24 10:09) Hives Medications ???Medication ???Instructions ???Recorded ???Confirmed ???Type multivitamin with folic acid 400 1 tab PO DAILY 02/17/14 06/22/24 History mcg tablet omeprazole 20 mg capsule,delayed 20 mg PO DAILY 02/17/14 06/22/24 History release losartan 50 mg tablet 50 mg PO DAILY 12/18/17 06/22/24 History dulaglutide 1.5 mg/0.5 mL 1.5 mg subcut QWEEK 06/22/22 06/22/24 History subcutaneous pen injector (Trulicity) metformin 500 mg tablet 500 mg PO BID 06/22/22 06/22/24 History ascorbate calcium (vitamin C) 500 500 mg PO DAILY 05/24/23 06/22/24 History mg tablet bupropion HCl 75 mg tablet 75 mg PO TID 10/12/23 06/22/24 History naproxen 500 mg tablet 500 mg PO BID PRN pain #30 tabs 11/25/23 06/22/24 Rx fluoxetine 60 mg tablet 60 mg PO QDAY 05/28/24 06/22/24 History sucralfate 1 gram tablet (Carafate) 1 g PO BID 05/28/24 06/22/24 History PFSH Medical History Diabetes Leg pain Anxiety and depression History of breast cancer Pulmonary embolism Surgical History History of bilateral breast reduction surgery Hx of tubal ligation History of lumpectomy History of mastectomy Family History Mother A-fib CVA (cerebral vascular accident) Father A-fib Grandmother Breast cancer Social History (Updated 05/28/24 @ 13:05 by Darline Modi) number of children: 2 current occupational status: unemployed Smoking Status: Never smoker alcohol intake: never substance use type: does not use caffeine: Yes what type of physical activity do you participate in: walking seatbelt use: always do you feel safe at home: Yes additional social history: [employer] Patient is unemployed HPI AUB ED FU Details: SILVIA DIXON is a 49 year old who presents for abnormal uterine bleeding. Patient has been intermittently having. She will go several months without bleeding and then she had several cycles this summer some heavier than others. Occasional cramping. This last cycle was very heavy and brought her to the emergency room. She did not have significant anemia. she is having breast reconstruction the end of this month. she is considering an ablation now for irregular bleeding. History 2 Elective abortions Hx Para 2 Spontaneous abortions Hx # Term Pregnancies Ectopic pregnancies Hx # Pregnancies Multiple births # of living children Past Pregnancies Del. Date Name GA/Weeks Outcome Route Bth Weight Infant Gen Labor Lgth Anesthesia Del Locatn Provider FOB Unknown 1999 Jhon live - full term [facility] Debbie Arnold Unknown 2001 Jovan live - full term [facility] Debbie Arnold ROS Const Constitutional: Denies fatigue, fever(s), headache(s), increased appetite, poor appetite, weight gain or weight loss : Reports as per HPI; Denies difficulty voiding, dysuria, urinary frequency, urinary incontinence, urinary hesitancy, urinary urgency, vaginal discharge, vaginal dryness, vaginal odor or vaginal pruritus Exam Const General: cooperative, healthy appearing, comfortable, no acute distress and well developed Nutritional Appearance: average body habitus Orientation: alert General: bladder normal to palpation External Female Exam: normal external appearance and normal appearance of the urethra Urethra: normal appearance of the urethra and normal palpation Speculum Exam - Vagina: normal appearance of the vagina and vaginal bleeding Speculum Exam - Cervix: normal appearance of the cervix and nontender Bimanual Exam- Vagina Uterus: normal bimanual exam, uterine size normal, bladder normal to palpation, uterine shape normal, No tender, uterine mobility normal, consistency normal, normal p alpation and non-tender Bimanual Exam- Adnexa, other: normal adnexae, adnexae mobile, no masses and normal Pelvic Support: normal OB/External Speculum: vaginal bleeding Speculum Exam: vaginal bleeding Office Procedures Endometrial Biopsy (more content not included)... Normal [facility] Surgery Specimen Level Cecilia 06-22-2024 Surgery Specimen Level IV Patient Age/Sex Location Account Attending Physician SILVIA DIXON 49/F LABSPEC [id number] Dr. Alejandra Wick MD Specimen: [id number] Received: 06/22/24 Status: MARV Ross Num: [id number] Spec Type: ENDOM BX/C Subm Dr: Dr. Alejandra Wick MD HEADER OPERATION: Endometrial biopsy PRE-OP DIAGNOSIS: Abnormal uterine bleeding TISSUE SUBMITTED: Endometrial lining MICROSCOPIC DIAGNOSIS Endometrial biopsy: Proliferative endometrium. SJ. 06/25/2024 MICROSCOPIC DESCRIPTION Slides are reviewed. GROSS DESCRIPTION Received is one container labeled with the patient's name and not further designated. The specimen consists of multiple irregular and elongated fragments of red- carlton soft tissue that in aggregate measure 2.5 x 1.5 x 0.1 cm. The specimen is totally submitted in one cassette. AM. 06/22/2024 TC:4 CPT:69852 Patient Age/Sex Location Account Attending Physician [id number] Dr. Alejandra Wick MD Signed (signature on file) Dr. Ricci Stokes MD 06/25/24 1055 Normal [facility] Comment on above: Performed By: #### P SUIV ####[facility] [address] [place], [address] Basic Metabolic Profile (BMP )on 06-18-2024 BUN/CRE 16.6 RATIO Normal -20 [facility] Comment on above: Performed By: #### L 100.0100, BTS, L500.2500 ####[facility] [address] [place], [address] CA,Total 9.1 mg/dL Normal 8.5-10.1 [facility] Comment on above: Performed By: #### L 100.0100, BTS, L500.2500 ####[facility] [address] [place], [address] Chloride [Moles/Vol] 107 mmol/L Normal 98-107 [facility] Comment on above: Performed By: #### L 100.0100, BTS, L500.2500 ####[facility] [address] [place], [address] CO2 [Moles/Vol] 24.0 mmol/L Normal 21.0-32.0 [facility] Comment on above: Performed By: #### L 100.0100, BTS, L500.2500 ####[facility] [address] [place], [address] Creatinine [Mass/Vol] 0.66 mg/dL Normal 0.55-1.02 [facility] Comment on above: Result Comment: The validity of the calculated GFR GFRAA in patients over 70 years has not been determined. Clinical correlation is essential. Performed By: #### L 100.0100, BTS, L500.2500 ####[facility] [address] [place], [address] ECRCL 142.10 ml/min Normal [facility] Comment on above: Performed By: #### L 100.0100, BTS, L500.2500 ####[facility] [address] [place], [address] EST GFR - AA 123 mL/min Normal >60 [facility] Comment on above: Result Comment: Afri can Haitian GFR Calc Performed By: #### L 100.0100, BTS, L500.2500 ####[facility] [address] [place], [address] GAP 7 Normal 5-15 [facility] Comment on above: Performed By: #### L 100.0100, BTS, L500.2500 ####[facility] [address] [place], [address] GFR/1.73 sq M.predicted among non-blacks MDRD (S/P/Bld) [Vol rate/Area] 102 mL/min/{1.73_m2} Normal >60 [facility] Comment on above: Result Comment: Non- GFR Calc Performed By: #### L 100.0100, BTS, L500.2500 ####[facility] [address] [place], [address] Glucose [Mass/Vol] 91 mg/dL Normal 74-106 [facility] Comment on above: Performed By: #### L 100.0100, BTS, L500.2500 ####[facility] [address] [place], [address] Potassium [Moles/Vol] 3.4 mmol/L Low 3.5-5.1 [facility] Comment on above: Performed By: #### L 100.0100, BTS, L500.2500 ####[facility] [address] [place], [address] Sodium [Moles/Vol] 138 mmol/L Normal 136-145 [facility] Comment on above: Performed By: #### L 100.0100, BTS, L500.2500 ####[facility] [address] [place], [address] Urea nitrogen [Mass/Vol] 11 mg/dL Normal 7-18 [facility] Comment on above: Performed By: #### L 100.0100, BTS, L500.2500 ####[facility] [address] [place], [address] CBC W/Diff, Automatedon 10-0 7-2023 Absolute Lymph 2.65 X10 3/uL Normal 0.83-4.51 [facility] Comment on above: Performed By: #### L 100.0100, BTS, L500.2500 ####[facility] [address] [place], [address] Absolute Neut 4.0 X10 3/uL Normal 2.0-7.7 [facility] Comment on above: Performed By: #### L 100.0100, BTS, L500.2500 ####[facility] [address] [place], [address] Basophils/100 WBC (Bld) 0.8 % Normal 0-1 [facility] Comment on above: Performed By: #### L 100.0100, BTS, L500.2500 ####[facility] [address] [place], [address] Eosinophils/100 WBC (Bld) 2.3 % Normal 0-5 [facility] Comment on above: Performed By: #### L 100.0100, BTS, L500.2500 ####[facility] [address] [place], [address] Erythrocyte distribution width (RBC) [Ratio] 13.6 % Normal 11.6-14.6 [facility] Comment on above: Performed By: #### L 100.0100, BTS, L500.2500 ####[facility] [address] [place], [address] Hematocrit (Bld) [Volume fraction] 40.9 % Normal 37-47 [facility] Comment on above: Performed By: #### L 100.0100, BTS, L500.2500 ####[facility] [address] [place], [address] Hemoglobin (Bld) [Mass/Vol] 13.7 g/dL Normal 12.0-15.0 [facility] Comment on above: Performed By: #### L 100.0100, BTS, L500.2500 ####[facility] [address] [place], [address] IG% 0.400 Normal 0.0-0.9 [facility] Comment on above: Result Comment: IG% - Immature Granulocytes (promyelocytes, myelocytes and metamyelocytes) > 1% indicates that a LEFT SHIFT is Present. Performed By: #### L 100.0100, BTS, L500.2500 ####[facility] [address] [place], [address] Lymphocytes/100 WBC (Bld) 35.8 % Normal 19-41 [facility] Comment on above: Performed By: #### L 100.0100, BTS, L500.2500 ####[facility] [address] [place], [address] MCH (RBC) [Entitic mass] 29.8 pg Normal 27.0-32.0 [facility] Comment on above: Performed By: #### L 100.0100, BTS, L500.2500 ####[facility] [address] [place], [address] MCHC (RBC) [Mass/Vol] 33.5 g/dL Normal 32-36 [facility] Comment on above: Performed By: #### L 100.0100, BTS, L500.2500 ####[facility] [address] [place], [address] MCV (RBC) [Entitic vol] 88.9 fL Normal 81-99 [facility] Comment on above: Performed By: #### L 100.0100, BTS, L500.2500 ####[facility] [address] [place], [address] Monocytes/100 WBC (Bld) 6.8 % Normal 0-10 [facility] Comment on above: Performed By: #### L 100.0100, BTS, L500.2500 ####[facility] [address] [place], [address] Neutrophils/100 WBC (Bld) 53.9 % Normal 47-70 [facility] Comment on above: Performed By: #### L 100.0100, BTS, L500.2500 ####[facility] [address] [place], [address] Nucleated RBC (Bld) [#/Vol] 0 10*3/uL Normal 0-5 [facility] Comment on above: Performed By: #### L 100.0100, BTS, L500.2500 ####[facility] [address] [place], [address] Platelet mean volume (Bld) [Entitic vol] 9.9 fL Normal 6.2-12.0 [facility] Comment on above: Performed By: #### L 100.0100, BTS, L500.2500 ####[facility] [address] [place], [address] Platelets (Bld) [#/Vol] 263 10*3/uL Normal 150-450 [facility] Comment on above: Performed By: #### L 100.0100, BTS, L500.2500 ####[facility] [address] [place], [address] RBC (Bld) [#/Vol] 4.60 10*6/uL Normal 4.2-5.4 [facility] Comment on above: Performed By: #### L 100.0100, BTS, L500.2500 ####[facility] [address] [place], [address] RDW SD 43.9 fl Normal 35.1-43.9 [facility] Comment on above: Performed By: #### L 100.0100, BTS, L500.2500 ####[facility] [address] [place], [address] WBC (Bld) [#/Vol] 7.4 10*3/uL Normal 4.4-11.0 [facility] Comment on above: Performed By: #### L 100.0100, BTS, L500.2500 ####[facility] [address] [place], [address] Emergency Department Summary on 06-18-2024 Emergency Department Summary [facility] Medical Records Department [address] [place] [address] Emergency Department Summary 06/18/24 MR#: [id number] Acct: [id number] Name: SILVIA DIXON Rep #: [id number] : 1975 49 From: Twan Marmolejo DO PCP: Dr. Randy Zhang MD Status:DEP ER Location: ED HPI HPI - Female History of Present Illness Chief Complaint: Vag Bleeding Narrative Narrative: Patient is a 49-year-old female with history of obesity, diabetes, breast cancer with a partial mastectomy presenting to the emergency department for vaginal bleeding for the last 3 days. Patient did have something similar a few months ago, she does see Dr. Wick for this. Patient states today she felt more weak, she denies any chest pain or shortness of breath. Patient states that she is going through a pad every 2 hours. She called her [employer] who referred her to the emergency department. She does state to have some lower abdominal cramping that radiates to the right flank. [facility] Medical History Diabetes Leg pain Anxiety and depression History of breast cancer Pulmonary embolism Home Medications ???Medication ???Instructions ???Recorded ???Last Taken ???Type multivitamin with folic acid 400 1 tab PO DAILY 02/17/14 Unknown History mcg tablet omeprazole 20 mg capsule,delayed 20 mg PO DAILY 02/17/14 Unknown History release losartan 50 mg tablet 50 mg PO DAILY 12/18/17 Unknown History dulaglutide 1.5 mg/0.5 mL 1.5 mg subcut QWEEK 06/22/22 Unknown History subcutaneous pen injector (Trulicity) metformin 500 mg tablet 500 mg PO BID 06/22/22 Unknown History ascorbate calcium (vitamin C) 500 500 mg PO DAILY 05/24/23 Unknown History mg tablet bupropion HCl 75 mg tablet 75 mg PO TID 10/12/23 Unknown History naproxen 500 mg tablet 500 mg PO BID PRN pain #30 tabs 11/25/23 Unknown Rx fluoxetine 60 mg tablet 60 mg PO QDAY 05/28/24 Unknown History sucralfate 1 gram tablet (Carafate) 1 g PO BID 05/28/24 Unknown History Allergy/AdvReac Type Severity Reaction Status Date / Time ketorolac tromethamine (From Allergy Hives Verified 06/18/24 12:21 Toradol) nitrofurantoin Allergy Hives Verified 06/18/24 12:21 Family History Mother A-fib CVA (cerebral vascular accident) Father A-fib Grandmother Breast cancer Surgical History History of bilateral breast reduction surgery Hx of tubal ligation History of lumpectomy History of mastectomy Social History (Updated 05/28/24 @ 13:05 by Darline Modi) number of children: 2 current occupational status: unemployed Smoking Status: Never smoker alcohol intake: never substance use type: does not use caffeine: Yes what type of physical activity do you participate in: walking seatbelt use: always do you feel safe at home: Yes additional social history: [employer] Patient is unemployed ROS ROS ED ROS Narrative Constitutional: Negative for fever, chills, weight loss, weakness Eyes: Negative for vision loss, vision change, double vision ENT: Negative for any sore throat, ear pain, congestion Cardiovascular: Negative for any chest pain, tightness, palpitations Respiratory: Negative for any cough, sputum production, hemoptysis, dyspnea, dyspnea on exertion, orthopnea Gastrointestinal: Negative for any abdominal pain, nausea, vomiting, diarrhea, constipation, blood in stool, blood in vomit : Negative for any urinary frequency, dysuria, retention, blood in urine. Positive for vaginal bleeding, lower abdominal cramping Muscle skeletal: Negative for any neck pain, back pain Neurological: Negative for any headache, syncope, dizziness Skin: Negative for any rashes, itching, abrasions, lacerations Psychiatric: Negative for any depression, anxiety, stress, suicidal ideation, homicidal ideation Hematologic: Negative for any excessive bruising, easy bleeding EXAM Physical Exam Narrative Exam Narrative: Vital signs reviewed. HEET: Head normocephalic atraumatic, TMs clear bilaterally. Posterior pharynx is clear, moist mucous membranes. Nares clear bilaterally. Neck: Supple with no lymphadenopathy or tenderness. No signs of meningismus. Cardiac: Regular rate and rhythm no murmurs gallops or rubs, equal peripheral pulses bilaterally. Respiratory: Lungs clear to auscultation bilaterally. No chest tenderness. Abdomen: Soft, nontender, nondistended. No abdominal bruit or pulsatile masses. No hepatosplenomegaly. Negative for any peritoneal signs Extremities: No peripheral edema, no signs of gross trauma or deformity. Active full range of motion of all extremities. Neuro: Cranial nerves II through XII intact, no focal neurological deficits. Skin (more content not included)... Normal [facility] ,Urineon 06-18-2024 Beta HCG ( test) Ql (U) Negative Normal [facility] Comment on above: Order Comment: COLOR OF URINE MAY AFFECT DIPSTICK RESULTS.CLEAN CATCH Result Comment: Very dilute urine specimens, as indicated by a low specific gravity, may not contain service representative levels of hCG. If is still suspected, a first morning urine specimen should be collected 48 hours later and tested. Performed By: #### L 499.0043 #### [facility] Laboratory [address] [place], [address] Transvaginal Non-on 06-18-2024 Transvaginal Non- [facility] Imaging Services [address] [place] [address] Transvaginal Non- MR#: [id number] Acct: [id number] Name: SILVIA DIXON Rep #: [id number] : 1975 F 49 From: Chet beth MD PCP: Dr. 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 Vaginal bleeding LMP: April 27, 2024. TECHNIQUE: Transvaginal TECHNICAL QUALITY: Adequate. COMPARISON: Comparison is made with prior study dated June 01, 2023. FINDINGS: The uterus is anteverted and is in a midline position. The uterus measures 10 cm x 7.1 cm x 5.6 cm. There is a Nabothian cyst of the cervix. The endometrium measures 10 mm in thickness, and is hyperechoic. There is no demonstrated endometrial mass. There is no demonstrated myometrial mass. I.U.D. - The patient does not have an I.U.D. The right ovary is visualized. The right ovary measures 3.4 cm x 3.7 cm x 3 cm. There is no right ovarian cyst or ovarian mass. There is no visualized right adnexal mass or complex lesion. There is normal arterial and normal venous vascularity. The left ovary is visualized. The left ovary measures 2.7 cm x 2.5 cm x 2 cm. There is no left ovarian cyst or ovarian mass. There is no visualized left adnexal mass or complex lesion. There is normal arterial and normal venous vascularity. There is no fluid in the cul-de-sac. US/Transvaginal Non- IMPRESSION: Endometrial thickening. Electronically Signed: Chet Valdes MD at 14:57 EDT , CC: THONG Rosas; Dr. 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, [address] Urinalysis, Completeon 06-18 BACTERIA RARE Normal None Seen [facility] Comment on above: Order Comment: COLOR OF URINE MAY AFFECT DIPSTICK RESULTS.CLEAN CATCH Performed By: #### L 499.0043 #### [facility] Laboratory [address] [place], [address] EPI,SQUAMOUS 0-5 SEEN Normal 5-10 [facility] Comment on above: Order Comment: COLOR OF URINE MAY AFFECT DIPSTICK RESULTS.CLEAN CATCH Performed By: #### L 499.0043 #### [facility] [address] [place], [address] RBC 25-50 SEEN Normal 0-5 [facility] Comment on above: Order Comment: COLOR OF URINE MAY AFFECT DIPSTICK RESULTS.CLEAN CATCH Performed By: #### L 499.0043 #### [facility] [address] [place], [address] WBC 5-10 SEEN Normal 0-5 [facility] Comment on above: Order Comment: COLOR OF URINE MAY AFFECT DIPSTICK RESULTS.CLEAN CATCH Performed By: #### L 499.0043 #### [facility] [address] [place], [address] Mucus Ql (Urine sed) 0 SEEN Normal [facility] Comment on above: Order Comment: COLOR OF URINE MAY AFFECT DIPSTICK RESULTS.CLEAN CATCH Performed By: #### L 499.0043 #### [facility] [address] [place], [address] Basic metabolic 2000 panelon 06-14-2024 Anion gap [Moles/Vol] 10 mmol/L 8 - 15 mmol/L [facility] Calcium [Mass/Vol] 9.9 mg/dL 8.5 - 10. 2 mg/dL [facility] Chloride [Moles/Vol] 100 mmol/L 98 - 10 7 mmol/L [facility] CO2 [Moles/Vol] 27 mmol/L 22 - 30 mmol/L [facility] Creatinine [Mass/Vol] 0.65 mg/dL 0.58 - 0.96 mg/dL [facility] GFR/1.73 sq M.predicted among non-blacks MDRD (S/P/Bld) [Vol rate/Area] 109 mL/min/{1.73_m2} - PINF [facility] Comment on above: Estimated Glomerular Filtration Rate (eGFR) is calculated using the 2020 CKD-EPI creatinine equation. This equation utilizes serum creatinine, sex, and age as parameters. The creatinine assay has traceable calibration to isotope dilution-mass spectrometry. Refer to KDIGO guidelines for clinical interpretation. In patients with unstable renal function, e.g. those with acute kidney injury, the eGFR may not accurately reflect actual GFR. Glucose [Mass/Vol] 99 mg/dL 74 - 99 mg/dL [facility] Comment on above: The [place] Diab[employer] s Association (ADA) provides guidance for cutoff values for fasting glucose and random glucose. The ADA defines fasting as no caloric intake for at least 8 hours. Fasting plasma glucose results between 100 to 125 mg/dL indicate increased risk for diabetes (prediabetes). Fasting plasma glucose results greater than or equal to 126 mg/dL meet the criteria for diagnosis of diabetes. In the absence of unequivocal hyperglycemia, results should be confirmed by repeat testing. In a patient with classic symptoms of hyperglycemia or hyperglycemic crisis, random plasma glucose results greater than or equal to 200 mg/dL meet the criteria for diagnosis of diabetes. Reference: Standards of Medical Care in Diabetes 2016, [place] Diabetes Association. Diabetes Care. 2016.39(Suppl 1). Interpretation and review of laboratory results Abnormal [facility] Potassium [Moles/Vol] 3.5 mmol/L Low 3.7 - 5.1 mmol/L [facility] Sodium [Moles/Vol] 137 mmol/L 136 - 144 mmol/L [facility] Urea nitrogen [Mass/Vol] 11 mg/dL 7 - 21 mg/dL [facility] CBC W Auto Differential pane l (Bld)on 06-14-2024 Basophils (Bld) [#/Vol] 0.06 10*3/uL [facility] Basophils/100 WBC (Bld) 0.6 % [facility] Differential cell count method Nom (Bld) Auto [facility] Eosinophils (Bld) [#/Vol] 0.22 10*3/uL [facility] Eosinophils/100 WBC (Bld) 2.2 % [facility] Erythrocyte distribution width (RBC) [Ratio] 13.6 % 11.5 - 15.0 % [facility] Hematocrit (Bld) [Volume fraction] 44.4 % 36.0 - 46.0 % [facility] Hemoglobin (Bld) [Mass/Vol] 15.2 g/dL 11.5 - 15.5 g/dL [facility] Immature granulocytes (Bld) [#/Vol] 0.03 10*3/uL [facility] Immature granulocytes/100 WBC (Bld) 0.3 % [facility] Lymphocytes (Bld) [#/Vol] 2.89 10*3/uL [facility] Lymphocytes/100 WBC (Bld) 29.5 % [facility] MCH (RBC) [Entitic mass] 30.0 pg 26. 0 - 34.0 pg [facility] MCHC (RBC) [Mass/Vol] 34.2 g/dL 30.5 - 36.0 g/dL [facility] MCV (RBC) [Entitic vol] 87.6 fL 80.0 - 100.0 fL [facility] Monocytes (Bld) [#/Vol] 0.54 10*3/uL [facility] Monocytes/100 WBC (Bld) 5.5 % [facility] Neutrophils (Bld) [#/Vol] 6.05 10*3/uL [facility] Neutrophils/100 WBC (Bld) 61.9 % [facility] Nucleated RBC (Bld) [#/Vol] NINF [facility] Nucleated RBC/100 WBC (Bld) [Ratio] 0.0 % /100 WBC [facility] Platelet mean volume (Bld) [Entitic vol] 9.7 fL 9.0 - 12.7 fL [facility] Platelets (Bld) [#/Vol] 270 10*3/uL [facility] RBC (Bld) [#/Vol] 5.07 10*6/uL 3.90 - 5.20 m/uL [facility] WBC (Bld) [#/Vol] 9.79 10*3/uL [facility] HbA1c (Bld)on 06-14-2024 Average glucose Estimated from glycated hemoglobin (Bld) [Mass/Vol] 103 mg/dL [facility] Comment on above: eAG: (Estimated aver age glucose) is a calculated value from HgbA1c and is service representative of the average blood glucose level in the last 2-3 month period. HbA1c (Bld) [Mass fraction] 5.2 % 4.3 - 5.6 % [facility] Comment on above: [place] Diabetes As sociation guidelines indicate that patients with HgbA1c in the range 5.7-6.4% are at increased risk for development of diabetes, and intervention by lifestyle modification may be beneficial. HgbA1c greater or equal to 6.5% is considered diagnostic of diabetes. [facility] NATERAon 05-28-2024 ALFREDO SEE SCANNED REPORT Normal [facility] Comment on above: Performed By: #### L 500.2500 #### [facility] [place], [address] Bdr Office Visit Reporton 05-28-2024 Bdr Office Visit Report [address], [address] [place] [address] OFFICE VISIT Date of Service: 05/28/24 MR#: [id number] Acct: [id number] Name: SILVIA DIXON Rep #: [id number] : 1975 Provider: Dr. 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 Is patient in pain?: No Feel stressed/tense/nervous/anx ious/difficulty sleeping: only a little (some anxiety for upcoming surgery) Allergies ketorolac tromethamine (From Toradol) Allergy (Verified 05/28/24 13:01) Hives nitrofurantoin Allergy (Verified 05/28/24 13:01) Hives Medications ???Medication ???Instructions ???Recorded ???Confirmed ???Type multivitamin with folic acid 400 1 tab PO DAILY 02/17/14 05/28/24 History mcg tablet omeprazole 20 mg capsule,delayed 20 mg PO DAILY 02/17/14 05/28/24 History release losartan 50 mg tablet 50 mg PO DAILY 12/18/17 05/28/24 History dulaglutide 1.5 mg/0.5 mL 1.5 mg subcut QWEEK 06/22/22 05/28/24 History subcutaneous pen injector (Trulicity) metformin 500 mg tablet 500 mg PO BID 06/22/22 05/28/24 History ascorbate calcium (vitamin C) 500 500 mg PO DAILY 05/24/23 05/28/24 History mg tablet bupropion HCl 75 mg tablet 75 mg PO TID 10/12/23 05/28/24 History naproxen 500 mg tablet 500 mg PO BID PRN pain #30 tabs 11/25/23 05/28/24 Rx fluoxetine 60 mg tablet 60 mg PO QDAY 05/28/24 05/28/24 History sucralfate 1 gram tablet (Carafate) 1 g PO BID 05/28/24 05/28/24 History Is last menstrual period known: Yes Last Menstrual Period: 04/23/24 Post menopausal: No Patient : No : [facility] History (Updated 05/28/24 @ 13:[address] Alejandra Wick MD) Diabetes Leg pain Anxiety and depression History of breast cancer Pulmonary embolism Surgical History History of bilateral breast reduction surgery Hx of tubal ligation History of lumpectomy History of mastectomy Family History Mother A-fib CVA (cerebral vascular accident) Father A-fib Grandmother Breast cancer Social History (Updated 05/28/24 @ 13:05 by Darline Modi) number of children: 2 current occupational status: unemployed Smoking Status: Never smoker alcohol intake: never substance use type: does not use caffeine: Yes what type of physical activity do you participate in: walking seatbelt use: always do you feel safe at home: Yes additional social history: [employer] Patient is unemployed History 2 Elective abortions Hx Para 2 Spontaneous abortions Hx # Term Pregnancies Ectopic pregnancies Hx # Pregnancies Multiple births # of living children Past Pregnancies Del. Date Name GA/Weeks Outcome Route Bth Weight Gen Labor Lgth Anesthesia Del Locatn Provider FOB Unknown 1999 Jhon live - full term [facility] Debbie Arnold Unknown 2001 Jovan live - full term [facility] Debbie Arnold HPI Encounter for routine gynecological examination Details: SILVIA DIXON is a 49 year old who presents for annual exam. having breast reconstruction Last PAP: 05/24/23 History of abnormal PAP: no severe Last mammogram: done within the last year - done at [facility] History of abnormal mammogram: Colon cancer screenin Other preventative health care screenings: Dr. Zhang - yearly bloodwork done by PCP Female Reproductive History Last Menstrual Period: 04/23/24 Questions: metorrhagia: No, sexually active: Yes, dyspareunia: No and PCB: No Menopausal Symptoms: No hot flashes, No night sweats, No weight change, No mood changes, No difficulty concentrating, No sleep problems and No change in libido ROS Const Constitutional: Reports as per HPI; Denies fatigue, increased appetite, poor appetite, night sweats, weight gain or weight loss Cardio Card: Denies chest pain Resp Resp: Denies cough or dyspnea GI GI: Reports as per HPI; Denies abdominal pain, bloating, constipation, nausea or vomiting : Reports as per HPI and other; Denies difficulty voiding, dysuria, hematuria, hot flashes, nipple discharge, pelvic pain, prolapse symptoms, urinary frequency, urinary incontinence, urinary urgency, vaginal discharge, vaginal dryness, vaginal odor or vaginal pruritus Skin Skin/Breast: Denies changing lesions, breast mass, breast pain, breast skin changes or nipple discharge Psych Psych: Denies anxiety, change in libido, depression or difficulty concentrating Exam Const Gene (more content not included)... Normal [facility] 17-Hydroxyprogesteroneon 17ALPHA [place]-PROG 61 ng/dL Normal . [facility] Comment on above: Order Comment: Test( s) [id number] Progesterone LCMSwas developed and its performance characteristicsdetermined by [facility]. It has not been cleared or approvedby the Food and Drug Administration.N Result Comment: Adul t Female Follicular 15 - 70 Luteal 35 - 290 Performed at: [address] [id number] [place] [employer]ist[employer] Joiner: Anshu Kitchen MD, Phone: [phone] Performed By: #### L 3100.5420, L3300.1500, L3400.4800, L3100.9000, L3100.5125, L3300.1750 ####[facility] [id number] [place], [address] DHEA Sulfateon 03-16-2024 DHEA SULFATE 114.0 ug/dL Normal 41.2-243.7 [facility] Comment on above: Order Comment: N Performed By: #### L 3100.5420, L3300.1500, L3400.4800, L3100.9000, L3100.5125, L3300.1750 ####[facility] [id number] [place], [place], [id number] Testosterone Freeon 03-16-20 24 TESTOSTER FREE 1.2 pg/mL Normal 0.0-4.2 [facility] Comment on above: Order Comment: N Result Comment: Perf ormed at: - [facility] [address] [id number] [place] [employer]: Kevin Rodriguez PhD, Phone: [phone] Performed at: - [facility] [address] [id number] [place] [employer]: Anshu Kitchen MD, Phone: [phone] Performed By: #### L 3100.5420, L3300.1500, L3400.4800, L3100.9000, L3100.5125, L3300.1750 ####[facility] [address] [place], [address] Estradiolon 03-12-2024 ESTRADIOL 179.9 pg/mL Normal [facility] Comment on above: Result Comment: NORM AL REFERENCE RANGES FEMALE FOLLICULAR 21.4 - 164.8 pg/mL MID-CYCLE PEAK 49.9 - 367.2 pg/mL LUTEAL 40.2 - 259.0 pg/mL POST-MENOPAUSAL ON MHT <11.0 - 462.1 pg/mL NOT ON MHT <11.0 - 58.3 pg/mL MALE <11.0 - 52.5 pg/mL NOTE: [facility] HAS CONFIRMED THE DRUG FULVETRANT (FASLODEX) MAY CAUSE FALSELY ELEVATED ESTRADIOL RESULTS WHEN USING THIS TEST METHOD. IF PATIENT IS TAKING FULVESTRANT AN ALTERNATIVE METHOD SHOULD BE USED TO DETERMINE ESTRADIOL CONCENTRATION. Performed By: #### L 3100.5420, L3300.1500, L3400.4800, L3100.9000, L3100.5125, L3300.1750 ####[facility] [id number] [place], [address] Follicle Stimulating Hormone on 03-12-2024 FSH 11.4 mIU/mL Normal [facility] Comment on above: Result Comment: NORMAL REFERENCE RANGES FEMALE FOLLICULAR 2.3 - 12.6 mIU/mL MID-CYCLE PEAK 5.2 - 17.5 mIU/mL LUTEAL 1.7 - 12.9 mIU/mL POST-MENOPAUSAL ON MHT 5.9 - 72.8 mIU/mL NOT ON MHT 12.7 - 132.2 mlU/mL MALE 0.7 - 10.8 mIU/mL Performed By: #### L 3100.8464, L3300.1500, L3400.3930, L3100.4330, L3100.5125, L3300.1750 ####[facility] [id number] [place], [address] Bdr Office Visit Reporton 03-12-2024 Bdr Office Visit Report [facility] [address] [place] [address] OFFICE VISIT Date of Service: 03/12/24 MR#: [id number] Acct: [id number] Name: SILVIA DIXON Rep #: [id number] : 1975 Provider: Dr. Alejandra lewis MD Age/Sex: 49/F [place] [facility] [place]: Signed Intake Vital Signs 11/25/23 13:20 03/12/24 09:22 03/12/24 09:24 Height 5 ft 6 in 5 ft 6 in 5 ft 6 in Weight: 267 lb BMI 43.0 BP 135/89 H Intake Visit Reasons: HYSTERECTOMY CONSULT Detention Officer Required: No Is patient in pain?: No Allergies ketorolac tromethamine (From Toradol) Allergy (Verified 03/12/24 09:23) Hives nitrofurantoin Allergy (Verified 03/12/24 09:23) Hives Medications ???Medication ???Instructions ???Recorded ???Confirmed ???Type multivitamin with folic acid 400 1 tab PO DAILY 02/17/14 03/12/24 History mcg tablet omeprazole 20 mg capsule,delayed 20 mg PO DAILY 02/17/14 03/12/24 History release losartan 50 mg tablet 50 mg PO DAILY 12/18/17 03/12/24 History nystatin-triamcinolone 100,000 1 applic topical TID #15 grams 04/08/22 03/12/24 Rx unit/gram-0.1 % topical ointment dulaglutide 1.5 mg/0.5 mL 1.5 mg subcut QWEEK 06/22/22 03/12/24 History subcutaneous pen injector (Trulicity) metformin 500 mg tablet 500 mg PO BID 06/22/22 03/12/24 History ascorbate calcium (vitamin C) 500 500 mg PO DAILY 05/24/23 03/12/24 History mg tablet bupropion HCl 75 mg tablet 75 mg PO TID 10/12/23 03/12/24 History naproxen 500 mg tablet 500 mg PO BID PRN pain #30 tabs 11/25/23 03/12/24 Rx Patient : No : No PFSH Medical History Diabetes Leg pain Anxiety and depression History of breast cancer Pulmonary embolism Surgical History History of bilateral breast reduction surgery Hx of tubal ligation History of lumpectomy History of mastectomy Family History Mother A-fib CVA (cerebral vascular accident) Father A-fib Grandmother Breast cancer Social History Smoking Status: Never smoker alcohol intake: never substance use type: does not use caffeine: Yes what type of physical activity do you participate in: walking seatbelt use: always do you feel safe at home: Yes additional social history: [employer] Patient is unemployed HPI HYSTERECTOMY CONSULT Details: SILVIA DIXON is a 49 year old who presents for follow up of AUB. she has only had two menses since the [facility], is having significant hot flashes and night sweats, had dysmenorrhea with last menses. Female Reproductive History Menopausal Symptoms: Yes hot flashes, Yes night sweats and Yes sleep problems History 2 Elective abortions Hx Para 2 Spontaneous abortions Hx # Term Pregnancies Ectopic pregnancies Hx # Pregnancies Multiple births # of living children Past Pregnancies Del. Date Name GA/Weeks Outcome Route Bth Weight Gen Labor Lgth Anesthesia Del Locatn Provider FOB Unknown 1999 Jhon live - full term Debbie Arnold Unknown 2001 Jovan live - full term Debbie Arnold ROS Const Constitutional: Reports fatigue, night sweats and weight loss; Denies fever(s), headache(s), increased appetite, poor appetite or weight gain GI GI: Reports as per HPI; Denies abdominal pain, constipation, nausea or vomiting : Reports as per HPI and hot flashes; Denies difficulty voiding, dysuria, hematuria, pelvic pain, urinary frequency, urinary incontinence, urinary hesitancy, urinary urgency, vaginal discharge, vaginal dryness, vaginal odor, vaginal pruritus or other Exam Const General: cooperative, healthy appearing, comfortable, no acute distress and well developed Orientation: alert HENMT Head: normal to inspection and normocephalic Ears: hearing grossly normal bilaterally and external ears normal Nose: external nose normal and nares normal Face and sinus: normal facial exam Neck Neck: normal visual inspection, no lymphadenopathy and trachea midline Thyroid: thyroid normal Resp Effort Inspection: normal respiratory effort Musc Other: gross motor intact no deficits, full bilateral strength Skin General: no rashes or lesions noted Neuro Motor: muscle tone normal throughout Coding Level of Care Code Off vis,est,level 3 Diagnoses Abnormal uterine bleeding N93.9 Climacteric N95.1 Assessment and Plan Assessment and Plan (1) Abnormal uterine bleeding: Status: Acute Comment: negative workup, plan nsaids and consider ablation. not hormonal candidate (2) Climacteric: Status (more content not included)... Normal [facility] Prolactinon 03-12-2024 PROLACTIN 6.3 ng/mL Normal [facility] Comment on above: Result Comment: NORMAL REFERENCE RANGES FEMALE NON- 2.2 - 30.3 ng/mL 8.1 - 347.6 ng/mL POST-MENOPAUSAL 0.7 - 31.5 ng/mL MALE 2.5 - 17.4 ng/mL Performed By: #### L 3100.5420, L3300.1500, L3400.4800, L3100.9000, L3100.5125, L3300.1750 ####[facility] [id number] [place], [address] CULTURE URINEon 10-18-2023 CULTURE URINE NO PATHOGENS GROWN A FTER 1 DAY NO PATHOGENS GROWN AFTER 2 DAYS Normal [facility] Comment on above: Performed By: #### U RINE #### [facility] [address] [place] [address] Replanter - Ivette BRUCE [id number] Absolute lymphocyte countOrd ered By: Darline Hutton on 10-11-2023 Lymphocytes Auto (Unsp spec) [#/Vol] 2.67 10*3/uL 0.83-4.51 [facility] Automated lymphocyte count a s percentage of total leukocytesOrdered By: Darline Hutton on 10-11-2023 Lymphocytes/100 WBC Auto (Unsp spec) 31.5 % 19-41 [facility] Basophil percentageOrdered B y: Darline Hutton on 10-11-2023 Basophils/100 WBC (Bld) 0.6 % 0-1 [facility] Eosinophils/100 WBC (Bld) 2.4 % 0-5 [facility] Hemoglobin (Bld) [Mass/Vol] 15.4 g/dL 12.0-15.0 [facility] Monocytes/100 WBC (Bld) 5.5 % 0-10 [facility] Neutrophils (Bld) [#/Vol] 5.1 10*3/uL 2.0-7.7 [facility] Neutrophils/100 WBC (Bld) 59.6 % 47-70 [facility] WBC (Bld) [#/Vol] 8.5 10*3/uL 4.4-11.0 [facility] Determination of erythrocyte mean corpuscular volume (MCV)Ordered By: Darline Hutton on 10-11-2023 MCV (RBC) [Entitic vol] 90.1 fL 81-99 [facility] Erythrocyte distribution wid th ratioOrdered By: Darline Hutton on 10-11-2023 Erythrocyte distribution width (RBC) [Ratio] 12.9 % 11.6-14.6 [facility] Erythrocyte distribution wid th standard deviationOrdered By: Darline Hutton on 10-11-2023 Erythrocyte distribution width (RBC) [Entitic vol] 42.2 fL 35.1-43.9 [facility] Hematocrit Auto (Bld) [Volum e fraction]Ordered By: Darline Hutton on 10-11-2023 Hematocrit (Bld) [Volume fraction] 47.3 % 37-47 [facility] Immature granulocytes/100 WB C Auto (Bld)Ordered By: Darline Hutton on 10-11-2023 Immature granulocytes/100 WBC (Bld) 0.400 % 0.0-0.9 [facility] Comment on above: IG% - Immature Granu locytes (promyelocytes, myelocytes and metamyelocytes) > 1% indicates that a LEFT SHIFT is Present. Laboratory - Hematology and Cell countsOrdered By: Darline Hutton on 10-11-2023 MCH (RBC) [Entitic mass] 29.3 pg 27.0-32.0 [facility] MCHC (RBC) [Mass/Vol] 32.6 g/dL 32-36 [facility] Nucleated RBC/100 WBC (Bld) [Ratio] 0 % 0-5 [facility] Platelets (Bld) [#/Vol] 293 10*3/uL 150-450 [facility] Platelet mean volume Broderick-Ec ker (Bld) [Entitic vol]Ordered By: Darline Hutton on 10-11-2023 Platelet mean volume (Bld) [Entitic vol] 9.7 fL 6.2-12.0 [facility] RBC Auto (Bld) [#/Vol]Ordere d By: Darline Hutton on 10-11-2023 RBC (Bld) [#/Vol] 5.25 10*6/uL 4.2-5.4 [facility] Serum or plasma thyroid stim ulating hormone (TSH) measurement (units/volume)Ordered By: Darline Hutton on 10-11-2023 TSH Qn 2.15 uIU/mL 0.358-3.74 [facility] Basic metabolic 2000 panelon 10-07-2023 Anion gap [Moles/Vol] 6.0 mmol/L Normal <=15.0 [facility] Comment on above: Performed By: #### 2 777-1, 79422-5, ####[facility], [place] [address]Fcixupt Director - Ivette Garcia [id number] Calcium [Mass/Vol] 9.3 mg/dL Normal 8.5-10.1 [facility] Comment on above: Performed By: #### 2 777-1, 63723-5, ####[facility], [place] [address]Hyknhhd Director - Ivette Garcia [id number] Chloride [Moles/Vol] 103 mmol/L Normal 98-107 [facility] Comment on above: Performed By: #### 2 777-1, , ####[facility], [place] [address]hn[facility] - Ivette Garcia [id number] CO2 [Moles/Vol] 27 mmol/L Normal 21-32 [facility] Comment on above: Performed By: #### 2 777-1, , ####[facility], [place] [address] [place] [address] - Ivette Garcia [id number] Creatinine [Mass/Vol] 0.66 mg/dL Normal 0.51-0.95 [facility] Comment on above: Performed By: #### 2 777-1, , ####[facility] - Ivette Garcia [id number] GFR/1.73 sq M.predicted MDRD (S/P/Bld) [Vol rate/Area] mL/min/{1.73_m2} Normal >=59 [facility] Comment on above: Performed By: #### 2 777-1, , ####[facility] - Ivette Garcia [id number] Glucose [Mass/Vol] 146 mg/dL High 74-106 [facility] Comment on above: Performed By: #### 2 777-1, , ####[facility], [place] [address] [place] [address] - Ivette Garcia [id number] HGFR GLOMERULAR FILTRATIO N RATE INTERPRETATION~The eGFR is calculated using the MDRD equation.~This equation has been validated in patients with chronic kidney disease;~however, it underestimates the GFR in healthy patients with GFR's over 60 mL/min.~The equation is not valid in children under the age of 18.~NOTE: Criteria for Chronic Kidney Disease:~ ~1. Kidney damage for at least three months, as defined~by structural or functional abnormalities of the kidney,~with or without decreased glomerular filtration rate, manifested by either:~* Pathological abnormalities or~* Markers of Kidney damage, including abnormalities in~the composition of the blood or urine or abnormalities in imaging tests.~ ~2. GFR <60 mL/min/1.73 m squared for at least three months, with or without kidney damage.~ Normal [facility] Comment on above: Performed By: #### 2 777-1, 19318-9, ####[facility] Streetcal Director - Ivette Garcia [id number] Potassium [Moles/Vol] 3.5 mmol/L Normal 3.5-5.1 [facility] Comment on above: Performed By: #### 2 777-1, , ####[facility] Director - Ivette Garcia [id number] Sodium [Moles/Vol] 136 mmol/L Normal 136-145 [facility] Comment on above: Performed By: #### 2 777-1, 99200-8, ####[facility] Director - Ivette Garcia [id number] Urea nitrogen [Mass/Vol] 14 mg/dL Normal 7-17 [facility] Comment on above: Performed By: #### 2 777-1, 42594-7, ####[facility] Director - Ivette Garcia [id number] CBC W Auto Differential pane l (Bld)on 10-07-2023 Basophils (Bld) [#/Vol] 0.05 10*3/uL Normal <=0.70 [facility] Comment on above: Performed By: #### 5 7021-8 #### [facility] [address] [place] [address] [employer] - Ivette STEINIA [id number] Basophils/100 WBC (Bld) 0.5 % Normal <=2.0 [facility] Comment on above: Performed By: #### 5 7021-8 #### [facility] [address] [place] [address] [employer] - Ivette STEINIA [id number] Eosinophils (Bld) [#/Vol] 0.16 10*3/uL Normal <=0.70 [facility] Comment on above: Performed By: #### 5 7021-8 #### [place] [address] [place] [address] [employer] - Ivette Lopez CLIA [id number] Eosinophils/100 WBC (Bld) 1.7 % Normal <=10.0 [facility] Comment on above: Performed By: #### 5 7021-8 #### [facility] [address] [place] [address] [employer] - Ivette STEINIA [id number] Erythrocyte distribution width (RBC) [Entitic vol] 42.6 fL Normal 36.4-46.3 [facility] Comment on above: Performed By: #### 5 7021-8 #### [place] [address] [place] [address] [employer] - Ivette STEINIA [id number] Hematocrit (Bld) [Volume fraction] 40.5 % Normal 37.0-47.0 [facility] Comment on above: Performed By: #### 5 7021-8 #### [facility] [address] [place] [address] [employer] - Ivette STEINIA [id number] Hemoglobin (Bld) [Mass/Vol] 13.9 g/dL Normal 12.0-16.0 [facility] Comment on above: Performed By: #### 5 7021-8 #### [place] [address] [place] [address] [employer] - Ivette Lopez CLIA [id number] Immature granulocytes (Bld) [#/Vol] 0.04 10*3/uL Normal <=0.10 [facility] Comment on above: Performed By: #### 5 7021-8 #### [facility] [address] [place] [address] [employer] - Ivette Lopez CLIA [id number] Immature granulocytes/100 WBC (Bld) 0.40 % Normal <=1.50 [facility] Comment on above: Performed By: #### 5 7021-8 #### [address] [facility], [place]. [place] [address] [employer] - Ivette Lopez CLIA [id number] Lymphocytes (Bld) [#/Vol] 2.06 10*3/uL Normal 1.20-3.40 [facility] Comment on above: Performed By: #### 5 7021-8 #### [place] [address] [place] [address] [employer] - Ivette Lopez CLIA [id number] Lymphocytes/100 WBC (Bld) 22.5 % Normal 20.0-40.0 [facility] Comment on above: Performed By: #### 5 7021-8 #### [address], [place]. [place] [address] [employer] - Ivette Lopez CLIA [id number] MCH (RBC) [Entitic mass] 30.4 pg Normal 27.0-31.0 [facility] Comment on above: Performed By: #### 5 7021-8 #### [place] [address] [place] [address] [employer] - Ivette Lopez CLIA [id number] MCHC (RBC) [Mass/Vol] 34.3 g/dL Normal 32.0-36.0 [facility] Comment on above: Performed By: #### 5 7021-8 #### [place] [address] [place] [address] [employer] - Ivette Lopez CLIA [id number] MCV (RBC) [Entitic vol] 88.6 fL Normal 80.0-100.0 [facility] Comment on above: Performed By: #### 5 7021-8 #### [place] [address] [employer] - Ivette STEINIA [id number] Monocytes (Bld) [#/Vol] 0.34 10*3/uL Normal 0.10-0.60 [facility] Comment on above: Performed By: #### 5 7021-8 #### [place] [address] [employer] - Ivette Lopez CLIA [id number] Monocytes/100 WBC (Bld) 3.7 % Normal <=8.0 [facility] Comment on above: Performed By: #### 5 7021-8 #### [place] [address] [employer] - Ivette Lopez CLIA [id number] Neutrophils (Bld) [#/Vol] 6.50 10*3/uL Normal 1.40-6.50 [facility] Comment on above: Performed By: #### 5 7021-8 #### [place] [address] [employer] - Ivette Lopez CLIA [id number] Neutrophils/100 WBC (Bld) 71.2 % High 50.0-70.0 [facility] Comment on above: Performed By: #### 5 7021-8 #### [place] [address] [employer] - Ivette Lopez CLIA [id number] Nucleated RBC (Bld) [#/Vol] 0.00 10*3/uL Normal <=0.10 [facility] Comment on above: Performed By: #### 5 7021-8 #### [place] [address] [employer] - Ivette STEINIA [id number] Platelet mean volume (Bld) [Entitic vol] 9.8 fL Normal 9.0-13.0 [facility] Comment on above: Performed By: #### 5 7021-8 #### [facility] [address] [facility]. [address] - [facility] CLIA [id number] Platelets (Bld) [#/Vol] 217 10*3/uL Normal 130-400 [facility] Comment on above: Performed By: #### 5 7021-8 #### [address] - [facility] CLIA [id number] RBC (Bld) [#/Vol] 4.57 10*6/uL Normal 4.00-6.30 [facility] Comment on above: Performed By: #### 5 7021-8 #### [address] - [facility] CLIA [id number] WBC (Bld) [#/Vol] 9.15 10*3/uL Normal 4.80-10.80 [facility] Comment on above: Performed By: #### 5 7021-8 #### [address] - [facility] [place] [id number] CTA CHESTon 10-07-2023 CT CTA CHEST EXAMINATION: CT CTA CHEST HISTORY: CHEST PAIN, UNSPECIFIED COMPARISON: None. TECHNIQUE: CT angiography of the pulmonary arteries following the administration of intravenous contrast. This CTA was repeated in an attempt to obtain better opacification of the pulmonary arteries. Coronal and sagittal MIP (maximum intensity projection) images were performed. Dose reduction techniques were achieved by using automated exposure control and/or adjustment of mA and/or kV according to patient size and/or use of iterative reconstruction technique. FINDINGS: A 4 cm x 3.4 cm lobulated lesion with well-defined densely sclerotic margins is noted in the upper left breast, most consistent with fat necrosis. There is adequate opacification of the pulmonary arteries. No pulmonary embolus is seen. No aortic aneurysm or dissection. The heart is normal in size. No coronary artery calcifications are seen. No pleural or pericardial effusion. No enlarged lymph nodes are seen. Densely calcified subcentimeter granuloma is noted in the right lower lobe superior segment (axial series 4, image 66). The lungs are otherwise clear. No pneumothorax. Diffuse hepatic steatosis is noted. The patient has large body habitus. Mild multilevel degenerative changes are noted throughout the thoracic spine. No fracture, malalignment, or other acute bony abnormality is seen. IMPRESSION: 1. No pulmonary embolus, aortic dissection, or other acute cardiopulmonary abnormality. 2. Diffuse hepatic steatosis. 3. Incidental calcified fat necrosis in the upper left breast. Normal [facility] HbA1c Calc (Bld) [Mass fract ion]on 10-07-2023 Average glucose Estimated from glycated hemoglobin (Bld) [Mass/Vol] 103 mg/dL Normal 68-125 [facility] Comment on above: Performed By: #### 1 7855-8 #### [facility] [address] [place] [address] [employer] - Ivette BRUCE [id number] HA1C A1C INTERPRETATION % A1c (NGSP) Interpretation 3.8 - 6.4 Non-Diabetic Range 5.7 - 6.4 Prediabetic >6.5 Action Suggested The eAG (estimated average glucose) is an estimation of one?s average blood glucose level, calculated based on A1C test results, reported using the same units (mg/dL) seen on blood glucose meters. Normal [facility] Comment on above: Performed By: #### 1 7855-8 #### [facility] [address] [place] [address] [employer] - Ivette BRUCE [id number] HbA1c (Bld) [Mass fraction] 5.2 %A1C Normal 4.2-6.3 [facility] Comment on above: Performed By: #### 1 7855-8 #### [facility] [address] [place] [address] [employer] - Ivette BRUCE [id number] Lipid panel with direct LDLo n 10-07-2023 Cholesterol [Mass/Vol] 191 mg/dL Normal <=200 [facility] Comment on above: Performed By: #### 5 7698-3 #### [facility] [address] [place] [address] [employer] - Ivette BRUCE [id number] Cholesterol in HDL [Mass/Vol] 52 mg/dL Normal 40-59 [facility] Comment on above: Performed By: #### 5 7698-3 #### [facility] [address] [place] [address] [employer] - Ivette BRUCE [id number] Cholesterol in LDL [Mass/Vol] 113 mg/dL High 5-100 [facility] Comment on above: Performed By: #### 5 7698-3 #### [facility] [address] [place] [address] [employer] - Ivette BRUCE [id number] Cholesterol in LDL/Cholesterol in HDL [Mass ratio] 2.2 {ratio} Normal [facility] Comment on above: Performed By: #### 5 7698-3 #### [facility] [address] [facility]. [place] [address] [employer] - Ivette BRUCE [id number] Cholesterol.total/Choles terol in HDL [Mass ratio] 3.7 {ratio} Normal [facility] Comment on above: Performed By: #### 5 7698-3 #### [facility] [address] [facility]. [place] [address] [employer] - Ivette BRUCE [id number] HCHOL CHOLESTEROL INTERPRE TATION Desirable <200 Borderline High 200-239 High >240 Normal [facility] Comment on above: Performed By: #### 5 7698-3 #### [facility] [address] [facility]. [place] [address] [employer] - Ivette BRUCE [id number] HLDL LDL INTERPRETATION Desirable <100 Near Optimal 100-129 Borderline High 130-159 High 160-190 Very High >190 Normal [facility] Comment on above: Performed By: #### 5 7698-3 #### [facility] [address] [facility]. [place] [address] [employer] - Ivette BRUCE [id number] HLIPID ATEROSCLEROSIS RISK FACTORS FOR LDL, HDL, AND CHOLESTEROL RISK FACTOR SEX LDL/HDL CHOL/HDL 1/2 Average M 1.00 3.43 F 1.47 3.27 Average M 3.55 4.97 F 3.22 4.44 2X Average M 6.25 9.55 F 5.03 7.05 3X Average M 7.99 23.39 F 6.14 11.04 Normal [facility] Comment on above: Performed By: #### 5 7698-3 #### [facility] [address] [place] [address] [employer] - Ivette BRUCE [id number] HTRIG TRIGLYCERIDES INTERPRETATION Normal <150 Borderline High 150-199 High 200-499 Very High >500 Normal [facility] Comment on above: Performed By: #### 5 7698-3 #### [facility] [address] [place] [address] [employer] - Ivette BRUCE [id number] Triglyceride [Mass/Vol] 128 mg/dL Normal <=150 [facility] Comment on above: Performed By: #### 5 7698-3 #### [facility] [address] [place] [address] [employer] - Ivette BRUCE [id number] MAGNESIUMon 10-07-2023 Magnesium [Mass/Vol] 1.8 mg/dL Normal 1.6-2.6 [facility] Comment on above: Performed By: #### 2 777-1, 52380-6, ####[facility] [address]Medical Director - Ivette Garcia [id number] PHOSPHORUSon 10-07-2023 Phosphate [Mass/Vol] 2.5 mg/dL Normal 2.5-4.9 [facility] Comment on above: Performed By: #### 2 777-1, 08803-0, 74836-3 ####[facility] Director - Ivette Garcia [id number] TROPONIN HIGH SENSITIVITYon 10-07-2023 TNIH 3.70 pg/mL Normal <=59.00 [facility] Comment on above: Result Comment: <59 pg/mL is considered a negative result. Performed By: #### T ROP2 ####[facility] Director - Ivette Garcia [id number] TNIH 3.10 pg/mL Normal <=59.00 [facility] Comment on above: Result Comment: <59 pg/mL is considered a negative result. Performed By: #### T ROP2 #### [facility] [address] [place] [address] [employer] - Ivette BRUCE [id number] TNIH <3.00 Normal <=59.00 [facility] Comment on above: Result Comment: <59 pg/mL is considered a negative result. Performed By: #### T ROP2 ####[place] [address] Director - Ivette Garcia [id number] Performed By: #### T ROP2 #### [place] [address] [place] [address] [employer] - Ivette BRUCE [id number] CBC W Auto Differential pane l (Bld)on 10-06-2023 Basophils (Bld) [#/Vol] 0.04 10*3/uL Normal <=0.70 [facility] Comment on above: Performed By: #### 5 7021-8 #### [facility] [address] [place] [address] [employer] - Ivette BRUCE [id number] Basophils/100 WBC (Bld) 0.3 % Normal <=2.0 [facility] Comment on above: Performed By: #### 5 7021-8 #### [facility] [address] [place] [address] [employer] - Ivette BRUCE [id number] Eosinophils (Bld) [#/Vol] 0.14 10*3/uL Normal <=0.70 [facility] Comment on above: Performed By: #### 5 7021-8 #### [address] [facility], [place]. [place] [address] [employer] - Ivette Lopez CLIA [id number] Eosinophils/100 WBC (Bld) 0.9 % Normal <=10.0 [facility] Comment on above: Performed By: #### 5 7021-8 #### [address] [place] [address] [employer] - Ievtte STEINIA [id number] Erythrocyte distribution width (RBC) [Entitic vol] 40.2 fL Normal 36.4-46.3 [facility] Comment on above: Performed By: #### 5 7021-8 #### [address] [place] [address] [employer] - Ivette STEINIA [id number] Hematocrit (Bld) [Volume fraction] 40.0 % Normal 37.0-47.0 [facility] Comment on above: Performed By: #### 5 7021-8 #### [address] [place] [address] [employer] - Ivette STEINIA [id number] Hemoglobin (Bld) [Mass/Vol] 13.9 g/dL Normal 12.0-16.0 [facility] Comment on above: Performed By: #### 5 7021-8 #### [address] [place] [address] [employer] - Ivette Lopez CLIA [id number] Immature granulocytes (Bld) [#/Vol] 0.05 10*3/uL Normal <=0.10 [facility] Comment on above: Performed By: #### 5 7021-8 #### [address] [place] [address] [employer] - Ivette STEINIA [id number] Immature granulocytes/100 WBC (Bld) 0.30 % Normal <=1.50 [facility] Comment on above: Performed By: #### 5 7021-8 #### [address] [place] [address] [employer] - Ivette STEINIA [id number] Lymphocytes (Bld) [#/Vol] 2.93 10*3/uL Normal 1.20-3.40 [facility] Comment on above: Performed By: #### 5 7021-8 #### [address] [place] [address] [employer] - Ivette STEINIA [id number] Lymphocytes/100 WBC (Bld) 18.9 % Low 20.0-40.0 [facility] Comment on above: Performed By: #### 5 7021-8 #### [place] [address] [employer] - Ivette STEINIA [id number] MCH (RBC) [Entitic mass] 30.1 pg Normal 27.0-31.0 [facility] Comment on above: Performed By: #### 5 7021-8 #### [place] [address] [employer] - Ivette STEINIA [id number] MCHC (RBC) [Mass/Vol] 34.8 g/dL Normal 32.0-36.0 [facility] Comment on above: Performed By: #### 5 7021-8 #### [address] [place] [address] [employer] - Ivette STEINIA [id number] MCV (RBC) [Entitic vol] 86.6 fL Normal 80.0-100.0 [facility] Comment on above: Performed By: #### 5 7021-8 #### [place] [address] [employer] - Ivette STEINIA [id number] Monocytes (Bld) [#/Vol] 0.88 10*3/uL High 0.10-0.60 [facility] Comment on above: Performed By: #### 5 7021-8 #### [facility] [address] [place] [address] [employer] - Ivette STEINIA [id number] Monocytes/100 WBC (Bld) 5.7 % Normal <=8.0 [facility] Comment on above: Performed By: #### 5 7021-8 #### [facility] [address] [place] [address] [employer] - Ivette STEINIA [id number] Neutrophils (Bld) [#/Vol] 11.46 10*3/uL High 1.40-6.50 [facility] Comment on above: Performed By: #### 5 7021-8 #### [place] [address] [place] [address] [employer] - Ivette STEINIA [id number] Neutrophils/100 WBC (Bld) 73.9 % High 50.0-70.0 [facility] Comment on above: Performed By: #### 5 7021-8 #### [place] [address] [place] [address] [employer] - Ivette STEINIA [id number] Nucleated RBC (Bld) [#/Vol] 0.00 10*3/uL Normal <=0.10 [facility] Comment on above: Performed By: #### 5 7021-8 #### [facility] [address] [place] [address] [employer] - Ivette STEINIA [id number] Platelet mean volume (Bld) [Entitic vol] 9.9 fL Normal 9.0-13.0 [facility] Comment on above: Performed By: #### 5 7021-8 #### [facility] [address] [place] [address] [employer] - Ivette STEINIA [id number] Platelets (Bld) [#/Vol] 221 10*3/uL Normal 130-400 [facility] Comment on above: Performed By: #### 5 7021-8 #### [place] [address] [place] [address] [employer] - Ivette BRUCE [id number] RBC (Bld) [#/Vol] 4.62 10*6/uL Normal 4.00-6.30 [facility] Comment on above: Performed By: #### 5 7021-8 #### [facility] [address] [place] [address] [employer] - Ivette BRUCE [id number] WBC (Bld) [#/Vol] 15.50 10*3/uL High 4.80-10.80 [facility] Comment on above: Performed By: #### 5 7021-8 #### [place] [address] [facility]. [place] [address] [employer] - Ivette BRUCE [id number] Comprehensive metabolic 2000 panelon 10-06-2023 Albumin [Mass/Vol] 3.3 g/dL Low 3.4-5.0 [facility] Comment on above: Performed By: #### L IPASE, 57415-3, , 95391-9 #### [facility] [address] [facility]. [place] [address] [employer] - Ivette BRUCE [id number] ALP [Catalytic activity/Vol] 80 U/L Normal 50-136 [facility] Comment on above: Performed By: #### L IPASE, 01789-5, , 29210-0 #### [facility] [address] [facility]. [place] [address] [employer] - Ivette BRUCE [id number] ALT [Catalytic activity/Vol] 33 U/L Normal 14-59 [facility] Comment on above: Performed By: #### L IPASE, 99854-3, , #### [facility] [address] [facility]. [place] [address] [employer] - Ivette BRUCE [id number] Anion gap [Moles/Vol] 4.0 mmol/L Normal <=15.0 [facility] Comment on above: Performed By: #### L IPASE, , , #### [facility] [address] [place] [address] [employer] - Ivette STEINIA [id number] AST [Catalytic activity/Vol] 15 U/L Normal 15-37 [facility] Comment on above: Performed By: #### L IPASE, , , #### [facility] [address] [place] [address] [employer] - Ivette SETINIA [id number] Bilirubin [Mass/Vol] 1.1 mg/dL High 0.2-1.0 [facility] Comment on above: Performed By: #### L IPASE, , , #### [facility] [address] [place] [address] [employer] - Ivette BRUCE [id number] Calcium [Mass/Vol] 9.2 mg/dL Normal 8.5-10.1 [facility] Comment on above: Performed By: #### L IPASE, , , #### [facility] [address] [place] [address] [employer] - Ivette BRUCE [id number] Chloride [Moles/Vol] 104 mmol/L Normal 98-107 [facility] Comment on above: Performed By: #### L IPASE, , , #### [facility] [address] [place] [address] [employer] - Ivette STEINIA [id number] CO2 [Moles/Vol] 28 mmol/L Normal 21-32 [facility] Comment on above: Performed By: #### L IPASE, , , #### [facility] [address] [place] [address] [employer] - Ivette BRUCE [id number] Creatinine [Mass/Vol] 0.65 mg/dL Normal 0.51-0.95 [facility] Comment on above: Performed By: #### L IPASE, 10591-2, , #### [facility] [address] [place] [address] [employer] - Ivette BRUCE [id number] GFR/1.73 sq M.predicted MDRD (S/P/Bld) [Vol rate/Area] mL/min/{1.73_m2} Normal >=59 [facility] Comment on above: Performed By: #### L IPASE, , , #### [facility] [address] [place] [address] [employer] - Ivette [place] [facility] [id number] Glucose [Mass/Vol] 136 mg/dL High 74-106 [facility] Comment on above: Performed By: #### L IPASE, , , #### [facility] [address] [place] [address] Replanter - [facility] [id number] HGFR GLOMERULAR FILTRATIO N RATE INTERPRETATION~The eGFR is calculated using the MDRD equation.~This equation has been validated in patients with chronic kidney disease;~however, it underestimates the GFR in healthy patients with GFR's over 60 mL/min.~The equation is not valid in children under the age of 18.~NOTE: Criteria for Chronic Kidney Disease:~ ~1. Kidney damage for at least three months, as defined~by structural or functional abnormalities of the kidney,~with or without decreased glomerular filtration rate, manifested by either:~* Pathological abnormalities or~* Markers of Kidney damage, including abnormalities in~the composition of the blood or urine or abnormalities in imaging tests.~ ~2. GFR <60 mL/min/1.73 m squared for at least three months, with or without kidney damage.~ Normal [facility] Comment on above: Performed By: #### L IPASE, 96800-1, , #### [facility] [address] [place] [address] Replanter - Ivette STEINIA [id number] Potassium [Moles/Vol] 3.3 mmol/L Low 3.5-5.1 [facility] Comment on above: Performed By: #### L IPASE, 93356-0, , #### [facility] [address] [place] [address] Replanter - Ivette BRUCE [id number] Protein [Mass/Vol] 7.3 g/dL Normal 6.4-8.2 [facility] Comment on above: Performed By: #### L IPASE, 24909-4, , #### [facility] [address] [place] [address] Replanter - Ivette BRUCE [id number] Sodium [Moles/Vol] 136 mmol/L Normal 136-145 [facility] Comment on above: Performed By: #### L IPASE, , , #### [facility] [address] [place] [address] Replanter - Ivette RBUCE [id number] Urea nitrogen [Mass/Vol] 16 mg/dL Normal 7-17 [facility] Comment on above: Performed By: #### L IPASE, , , #### [facility] [address] [place] [address] Replanter - Ivette BRUCE [id number] HCG BLOODon 10-06-2023 HCG.beta subunit Qn m[IU]/mL Normal 1-3 [facility] Comment on above: Performed By: #### L IPASE, 34985-1, , ####[facility] [address]Medical Director - Ivette Garcia [id number] HCG.beta subunit Qnon 2023 [facility] HCG INTERPRETATION T he expected values were calculated non-parametrically and represent the central 95% of the population. When borderline results are encountered, patient samples should be drawn 48 hours later. The concentration of HCG rises rapidly during early . Gestational Age Expected HCG Values 0.2-1 week 5-50 1-2 weeks 50-500 2-3 weeks 100-5000 3-4 weeks 500-10,000 4-5 weeks 1000-50,000 5-6 weeks 10,000-100,000 6-8 weeks 15,000-200,000 2-3 months 10,000-100,000 Normal [facility] Comment on above: Performed By: #### L IPA, 45831-3, 11958-8, 98188-8 ####[facility] Director - Ivette Garcia [id number] LIPASEon 10-06-2023 LIPASES 33 U/L Normal 13-75 [facility] Comment on above: Performed By: #### L IPA, 47856-1, , ####[facility] Director - Ivette Garcia [id number] MAGNESIUMon 10-06-2023 Magnesium [Mass/Vol] 1.7 mg/dL Normal 1.6-2.6 [facility] Comment on above: Performed By: #### L IPA, 45063-1, , 89492-6 ####[facility] Director - Ivette Garcia [id number] PT and aPTT panel Coag (PPP) on 10-06-2023 aPTT Coag (PPP) [Time] 32.9 s High 23.5-31.3 [facility] Comment on above: Performed By: #### 3 4529-8 #### [facility] [address] [place], [place] [address] Replanter - Ivette BRUCE [id number] HPTINR INR REFERENCE RANGE INTERPRETATION Patients on Coumadin 2.0 - 3.0 Patients with mechanical heart valves 2.5 - 3.5 Normal [facility] Comment on above: Performed By: #### 3 4529-8 #### [facility] [address] [place] [address] Replanter - Ivette BRUCE [id number] INR Coag (PPP) [Relative time] 1.0 {INR} Normal 0.8-1.1 [facility] Comment on above: Performed By: #### 3 4529-8 #### [facility] [address] [place] [address] Replanter - Ivette BRUCE [id number] PT Coag (PPP) [Time] 10.3 s Normal 9.3-11.5 [facility] Comment on above: Performed By: #### 3 4529-8 #### [facility] [address] [facility] [place] [address] Replanter - Ivette BRUCE [id number] HbA1c (Bld)on 08-02-2023 Average glucose Estimated from glycated hemoglobin (Bld) [Mass/Vol] 108 mg/dL [facility] HbA1c (Bld) [Mass fraction] 5.4 % 4.3 - 5.6 % [facility] ALBUMIN/CREAT RATIO RND URon 08-01-2023 Albumin DL <= 20 mg/L (U) [Mass/Vol] 22.0 mg/L [facility] Albumin/Creatinine (U) [Mass ratio] 11 mg/g <30 mg/g [facility] Creatinine (U) [Mass/Vol] 207.1 mg/dL 20.0 - 300.0 mg/dL [facility] CBC W Auto Differential pane l (Bld)on 08-01-2023 Basophils (Bld) [#/Vol] 0.06 10*3/uL <0.11 k/uL [facility] Basophils/100 WBC (Bld) 0.7 % [facility] Differential cell count method Nom (Bld) Auto [facility] Eosinophils (Bld) [#/Vol] 0.16 10*3/uL <0.46 k/uL [facility] Eosinophils/100 WBC (Bld) 1.8 % [facility] Erythrocyte distribution width (RBC) [Ratio] 13.2 % 11.5 - 15.0 % [facility] Hematocrit (Bld) [Volume fraction] 44.7 % 36.0 - 46.0 % [facility] Hemoglobin (Bld) [Mass/Vol] 15.3 g/dL 11.5 - 15.5 g/dL [facility] Immature granulocytes (Bld) [#/Vol] 0.03 10*3/uL <0.10 k/uL [facility] Immature granulocytes/100 WBC (Bld) 0.3 % [facility] Lymphocytes (Bld) [#/Vol] 3.14 10*3/uL 1.00 - 4.00 k/uL [facility] Lymphocytes/100 WBC (Bld) 35.5 % [facility] MCH (RBC) [Entitic mass] 30.4 pg 26. 0 - 34.0 pg [facility] MCHC (RBC) [Mass/Vol] 34.2 g/dL 30.5 - 36.0 g/dL [facility] MCV (RBC) [Entitic vol] 88.7 fL 80.0 - 100.0 fL [facility] Monocytes (Bld) [#/Vol] 0.56 10*3/uL <0.87 k/uL [facility] Monocytes/100 WBC (Bld) 6.3 % [facility] Neutrophils (Bld) [#/Vol] 4.89 10*3/uL 1.45 - 7.50 k/uL [facility] Neutrophils/100 WBC (Bld) 55.4 % [facility] Nucleated RBC (Bld) [#/Vol] <0.01 k/uL [facility] Nucleated RBC/100 WBC (Bld) [Ratio] 0.0 /100 WBC [facility] Platelet mean volume (Bld) [Entitic vol] 10.3 fL 9.0 - 12.7 fL [facility] Platelets (Bld) [#/Vol] 277 10*3/uL 150 - 400 k/uL [facility] RBC (Bld) [#/Vol] 5.04 10*6/uL 3.90 - 5.20 m/uL [facility] WBC (Bld) [#/Vol] 8.84 10*3/uL 3.70 - 11.00 k/uL [facility] Cervical or vagninal specime n microscopic examination by cytology stain (reported asOrdered By: Alejandra Wick on 05-24-2023 Cytology report Cyto stain Doc (Cvx/Vag) Comment . [facility] Comment on above: The Pap smear is a s creening test designed to aid in thedetection of premalignant and malignant conditions of theuterine cervix. It is not a diagnostic procedure andshould not be used as the sole means of detecting cervicalcancer. Both false-positive and false-negative reports dooccur. Detection in cervical specim en of any of human papilloma virus (HPV) 16, 18, 31, 33,Ordered By: Alejandra Wick on 05-24-2023 HPV 16+18+31+33+35+39+45+51+ 52+56+58+59+66+68 DNA Probe+sig amp Ql (Cvx) Negative Negative [facility] Comment on above: This nucleic acid am plification test detects fourteen high-risk HPV types (16,18,31,33,35,39,45,51,52,56,58,59,66,68)without differentiation. Laboratory - CytologyOrdered By: Alejandra Wick on 05-24-2023 M1A1 Tank Crewman Cyto stain Nom (Cvx/Vag) [ID] Comment . [facility] Comment on above: Hannah Mireles Cyto technologist Laboratory - Miscellaneous t estsOrdered By: Alejandra Wick on 05-24-2023 Service comment (Unsp spec) [Interp] Comment . [facility] Comment on above: This liquid based Th inPrep(R) pap test was screened withthe use of an image guided system. Service comment (Unsp spec) [Interp] . . [facility] Liquid-based cerv Pap + CT/G C by PAWAN w reflex to high-risk HPV for ASCUSOrdered By: Alejandra Wick on 05-24-2023 Cytology report Cyto stain.thin prep Doc (Cvx/Vag) Comment . [facility] Comment on above: Criteria not met, HP V Genotype not performed.Performed at: - [address] [id number] Director: Deanne Portillo MD, Phone: [phone] at: =[facility] [address] [id number] Director: Deanne Portillo MD, Phone: [phone] No Panel InformationOrdered By: Alejandra Wick on 05-24-2023 Pathology report final diagnosis Narrative Comment . [facility] Comment on above: NEGATIVE FOR INTRAEP ITHELIAL LESION OR MALIGNANCY. Dehydroepiandrosterone Sulfate 126.0 ug/dL 41.2-243.7 [facility] Follicle Stimulating Hormone 13.3 mIU/mL [facility] Comment on above: NORMAL REFERENCE RAN GES FEMALE FOLLICULAR 2.3 - 12.6 mIU/mL MID-CYCLE PEAK 5.2 - 17.5 mIU/mL LUTEAL 1.7 - 12.9 mIU/mL POST-MENOPAUSAL ON MHT 5.9 - 72.8 mIU/mL NOT ON MHT 12.7 - 132.2 mlU/mL MALE 0.7 - 10.8 mIU/mL Serum or plasma 17-hydroxypr ogesterone measurement (mass/volume)Ordered By: Alejandra Wick on 05-24-2023 17-Hydroxyprogesterone [Mass/Vol] 17 ng/dL . [facility] Comment on above: Adult Female Follicu lar 15 - 70 Luteal 35 - 290Performed at: - [facility] [id number] Director: Anshu Kitchen MD, Phone: [phone] Serum or plasma estradiol (E 2) measurement (mass/volume)Ordered By: Alejandra Wick on 05-24-2023 E2 [Mass/Vol] 14.0 pg/mL [facility] Comment on above: NORMAL REFERENCE RAN GES FEMALE FOLLICULAR 21.4 - 164.8 pg/mL MID-CYCLE PEAK 49.9 - 367.2 pg/mL LUTEAL 40.2 - 259.0 pg/mL POST-MENOPAUSAL ON MHT <11.0 - 462.1 pg/mL NOT ON MHT <11.0 - 58.3 pg/mL MALE <11.0 - 52.5 pg/mL NOTE:[employer] HAS CONFIRMED THE DRUG FULVETRANT (FASLODEX) MAY CAUSE FALSELY ELEVATED ESTRADIOL RESULTS WHEN USING THIS TEST METHOD. IF PATIENT IS TAKING FULVESTRANT AN ALTERNATIVE METHOD SHOULD BE USED TO DETERMINE ESTRADIOL CONCENTRATION. Serum or plasma prolactin me asurement (mass/volume)Ordered By: Alejandra Wick on 05-24-2023 Prolactin [Mass/Vol] 3.4 ng/mL [facility] Comment on above: NORMAL REFERENCE RAN GES FEMALE NON- 2.2 - 30.3 ng/mL 8.1 - 347.6 ng/mL POST-MENOPAUSAL 0.7 - 31.5 ng/mL MALE 2.5 - 17.4 ng/mL Serum or plasma testosterone free measurement (mass/volume)Ordered By: Alejandra Wick on 05-24-2023 Testosterone Free [Mass/Vol] 1.5 pg/mL 0.0-4.2 [facility] Comment on above: Performed at: CB - L [facility] [address] [id number] Director: Kevin Rodriguez PhD, Phone: [phone] at: - Lab[address] [id number] Director: Anshu Kitchen MD, Phone: [phone] DBT Breast - bilateral eldere mihiryanci 10-27-2022 IMPRESSION: BENIGN F INDING There is no mammographic evidence of malignancy. A 1 year screening mammogram is recommended. Julius bauman/marcel:10/27/2022 15:15:04 Roller Printer(s): RT Clary(R)(M), [facility] letter sent: Normal over 40 Mammogram BI-RADS: 2 Benign finding Multiple national specialty organizations have released breast cancer screening guidelines for women at average risk for developing breast cancer - guidelines that are based on both evidence and opinion, yet differ on when to start and how often to screen for breast cancer. With representation from Breast Imaging, Internal Medicine, Women's Health, Family Medicine, and Medical/Surgical Oncology, the [facility] has carefully reviewed the data and reached the following consensus: 1) All women should engage in shared decision-making with their providers to decide when to start and how often to screen; 2) All women should have the opportunity to start screening mammography at age 40; 3) For women ages 45-55, we recommend annual screening mammograms; 4) For women ages 55 and over, we support both the transition from an annual to a biennial interval if this aligns more with patient's values and preferences, or continuation with annual screening; 5) All women should discuss with their providers when to stop screening mammograms. Game Master: Marcel Transcrifreya Date/Time: Oct 27 2022 2:41P Dictated by: JULIUS THOMAS MD This examination was interpreted and the report reviewed and electronically signed by: JULIUS THOMAS MD on Oct 27 2022 3:15PM [facility] DIVISION OF RADIOLOGY * * *Final Report* * * DATE OF EXAM: Oct 27 2022 2:53PM [facility] 0582 - DIANE SCREENING W ERNESTO / PROCEDURE REASON: Encounter for screening mammogram for breast cancer * * * * Physician Interpretation * * * * RESULT: #[id number] - DIANE SCREENING W ERNESTO BILATERAL DIGITAL SCREENING MAMMOGRAM TOMOSYNTHESIS WITH CAD: 10/27/2022 HISTORY: Encounter For Screening Mammogram For Breast Cancer / Screening Mammogram-Patient reports NO symptoms. RESULT: TECHNIQUE: The study was acquired using full field digital technology and interpreted from soft copy. Digital Breast Tomosynthesis (DBT) images were obtained and used to assist in the interpretation of this examination. Current study was also evaluated with a Computer Aided Detection (CAD). Comparison is made to exams dated: 07/14/2021 mammogram and 06/06/2020 mammogram - [facility]. The tissue of both breasts is predominantly fatty. The patient is status post lumpectomy left breast. The left breast has post-operative findings. No significant masses, calcifications, or other findings are seen in either breast. There has been no significant interval change. DIVISION OF RADIOLOGY Provider, [facility] - 10/27/2022 * * *Final Report* * * DATE OF EXAM: Oct 27 2022 2:53PM [facility] 0582 - DIANE SCREENING W ERNESTO / PROCEDURE REASON: Encounter for screening mammogram for breast cancer * * * * Physician Interpretation * * * * RESULT: #[id number] - DIANE SCREENING W ERNESTO BILATERAL DIGITAL SCREENING MAMMOGRAM TOMOSYNTHESIS WITH CAD: 10/27/2022 HISTORY: Encounter For Screening Mammogram For Breast Cancer / Screening Mammogram-Patient reports NO symptoms. RESULT: TECHNIQUE: The study was acquired using full field digital technology and interpreted from soft copy. Digital Breast Tomosynthesis (DBT) images were obtained and used to assist in the interpretation of this examination. Current study was also evaluated with a Computer Aided Detection (CAD). Comparison is made to exams dated: 07/14/2021 mammogram and 06/06/2020 mammogram - [facility]. The tissue of both breasts is predominantly fatty. The patient is status post lumpectomy left breast. The left breast has post-operative findings. No significant masses, calcifications, or other findings are seen in either breast. There has been no significant interval change. IMPRESSION IMPRESSION: BENIGN FINDING There is no mammographic evidence of malignancy. A 1 year screening mammogram is recommended. Julius Thomas M.D. tr/marcel:10/27/2022 15:15:04 Roller Printer(s): RT Clary(R)(M), [facility] letter sent: Normal over 40 Mammogram BI-RADS: 2 Benign finding Multiple national specialty organizations have released breast cancer screening guidelines for women at average risk for developing breast cancer - guidelines that are based on both evidence and opinion, yet differ on when to start and how often to screen for breast cancer. With representation from Breast Imaging, Internal Medicine, Women's Health, Family Medicine, and Medical/Surgical Oncology, the [facility] has carefully reviewed the data and reached the following consensus: 1) All women should engage in shared decision-making with their providers to decide when to start and how often to screen; 2) All women should have the opportunity to start screening mammography at age 40; 3) For women ages 45-55, we recommend annual screening mammograms; 4) For women ages 55 and over, we support both the transition from an annual to a biennial interval if this aligns more with patient's values and preferences, or continuation with annual screening; 5) All women should discuss with their providers when to stop screening mammograms. Game Master: Marcel Transcribe Date/Time: Oct 27 2022 2:41P Dictated by: JULIUS THOMAS MD This examination was interpreted and the report reviewed and electronically signed by: JULIUS THOMAS MD on Oct 27 2022 3:15PM EST [facility] Radiology Study observation (narrative) [facility] [employer] DBT Breast - bilateral scree ningOrdered By: [facility] Provider on 10-27-2022 [facility] HEMOGLOBIN A1C (POC)on 08-11 HbA1c (Bld) [Mass fraction] 5.6 % 4.2 - 5.6 % [facility] MRI BREAST WO/W IVCON BILon 04-14-2022 MRI BREAST WO/W IVCON ANNELISE * * *Final Report* * * DATE OF EXAM: Apr 14 2022 1:52PM [facility] 0773 - MRI BREAST WO/W IVCON ANNELISE / PROCEDURE REASON: multiple diagnoses * * * * Physician Interpretation * * * * #[id number] - MRI BREAST WO/W IVCON ANNELISE BREAST MRI OF BOTH BREASTS: 04/14/2022 HISTORY: Multiple Diagnoses Patient at documented high risk for breast cancer (history of left breast cancer status post left lumpectomy and bilateral reduction mammoplasty), here for MR screening. RESULT: Comparison is made to exams dated: 07/14/2021 mammogram - [facility], 12/10/2020 breast MRI, and 12/19/2018 breast MRI - [facility]. Interpretation of this MRI was correlated with available mammograms, previous MRI scans, and clinical information. Gadolinium contrast calibrated to patient weight was injected. MRI images were obtained at 1 mm intervals and at 5 mm coronal intervals with a dedicated breast coil. Pre and post contrast images were obtained at 1 minute intervals. Post processing was performed including motion subtraction, color parametric mapping, and 3D multiplanar reconstruction. The patient was studied using the dedicated breast coil in the 1.5 Grisel scanner. Initial axial STIR imaging was carried out followed by axial T1-weighted GRE imaging both before and after IV administration of 20 ml of Dotarem. Subsequently, subtraction imaging and 3-D reconstruction were completed on an independent workstation. An additional 4 minute high resolution sequence was performed after the first two 1 minute post-contrast sequences. FINDINGS: Bilateral background breast enhancement is minimal. The patient is status post lumpectomy left breast. The left breast has post-operative findings. The patient is status post reduction both breasts. No masses or areas of abnormal contrast enhancement were seen in either breast. There are no abnormalities seen in the axillary nodes region. There has been no significant interval change. IMPRESSION: BENIGN FINDING Normal bilateral breast MRI. Return to annual mammogram screening schedule is recommended. Sammy guzman/marcel:04/14/2022 14:14:30 Roller Printer(s): Eloy Gimenez [facility] letter sent: Normal over 40 MRI BI-RADS: 2 Benign finding Multiple national specialty organizations have released breast cancer screening guidelines for women at average risk for developing breast cancer - guidelines that are based on both evidence and opinion, yet differ on when to start and how often to screen for breast cancer. With representation from Breast Imaging, Internal Medicine, Women's Health, Family Medicine, and Medical/Surgical Oncology, the [facility] has carefully reviewed the data and reached the following consensus: 1) All women should engage in shared decision-making with their providers to decide when to start and how often to screen; 2) All women should have the opportunity to start screening mammography at age 40; 3) For women ages 45-55, we recommend annual screening mammograms; 4) For women ages 55 and over, we support both the transition from an annual to a biennial interval if this aligns more with patient's values and preferences, or continuation with annual screening; 5) All women should discuss with their providers when to stop screening mammograms. Game Master: Marcel Transcribe Date/Time: Apr 14 2022 1:26P Dictated by : SAMMY ANDERSON MD This examination was interpreted and the report reviewed and electronically signed by: SAMMY ANDERSON MD on Apr 14 2022 2:14PM EST [id number] Normal [facility] MRI BREAST WO/W IVCON BILATo n 04-14-2022 [facility] Laboratory - Chemistry and C hemistry - challengeon 04-08-2022 Bilirubin Ql (U) Negative [facility] Work Phone: Glucose Ql (U) 1000 g/dL [facility] Work Phone: Ketones Ql (U) Negative [facility] Work Phone: pH (U) 6.5 [pH] [facility] Work Phone: Specific gravity (U) [Rel density] 1.005 [facility] Work Phone: [phone] Urobilinogen (U) [Mass/Vol] Negative [facility] Work Phone: Laboratory - Specimen inform ationon 04-08-2022 Clarity (U) Cloudy [facility] Work Phone: Color (U) Straw [facility] Work Phone: Laboratory - Urinalysison Nitrite Ql (U) Negative [facility] Work Phone: Protein Ql (U) Negative [facility] Work Phone: No Panel Informationon 04-08 Urine Leukocytes Positive [facility] Work Phone: Urine Non-Hemolyzed Blood Negative [facility] Work Phone: XR ANKLE GENERAL 3V AP/LAT/O BL RIGHTon 12-01-2021 [facility] Breast - bilateral Diagno sticon 07-14-2021 * * *Final Report* * * DATE OF EXAM: Jul 14 2021 3:46PM [facility] ANNELISE / PROCEDURE REASON: multiple diagnoses * * * * Physician Interpretation * * * * RESULT: #[id number] - [facility] DIAGNOSTIC ANNELISE #[id number] - [facility] US BREAST LTD LT BILATERAL DIGITAL DIAGNOSTIC MAMMOGRAM WITH CAD: 07/14/2021 HISTORY: Multiple Diagnoses / Focal pain left breast. for 4 days Multiple Diagnoses. RESULT: TECHNIQUE: The study was acquired using full field digital technology and interpreted from soft copy. Current study was also evaluated with a Computer Aided Detection (CAD). Comparison is made to exams dated: 01/11/2018 mammogram - [facility], 08/11/2018 mammogram, 07/31/2019 mammogram, 06/06/2020 mammogram - [facility], and 12/10/2020 breast MRI - [facility]. The tissue of both breasts is predominantly fatty. The left breast has post-operative findings due to lumpectomy. There is a stable coarse dystrophic calcification in the left breast at 12 o'clock middle depth. No other significant masses, calcifications, or other findings are seen in either breast. DIVISION OF RADIOLOGY Provider, [facility] - 07/14/2021 * * *Final Report* * * DATE OF EXAM: Jul 14 2021 3:46PM [facility] 06[employer] - [facility] DIAGNOSTIC ANNELISE / PROCEDURE REASON: multiple diagnoses * * * * Physician Interpretation * * * * RESULT: #[id number] - [facility] DIAGNOSTIC ANNELISE #[id number] - [facility] US BREAST LTD LT BILATERAL DIGITAL DIAGNOSTIC MAMMOGRAM WITH CAD: 07/14/2021 HISTORY: Multiple Diagnoses / Focal pain left breast. for 4 days Multiple Diagnoses. RESULT: TECHNIQUE: The study was acquired using full field digital technology and interpreted from soft copy. Current study was also evaluated with a Computer Aided Detection (CAD). Comparison is made to exams dated: 01/11/2018 mammogram - [facility], 08/11/2018 mammogram, 07/31/2019 mammogram, 06/06/2020 mammogram - [facility], and 12/10/[address] [facility]. The tissue of both breasts is predominantly fatty. The left breast has post-operative findings due to lumpectomy. There is a stable coarse dystrophic calcification in the left breast at 12 o'clock middle depth. No other significant masses, calcifications, or other findings are seen in either breast. IMPRESSION IMPRESSION: INCOMPLETE: NEEDS ADDITIONAL IMAGING EVALUATION The stable coarse dystrophic calcification in the left breast is consistent with fat necrosis and is benign. There are no abnormalities seen in the left breast to correspond with the pain at 6 and 11 o'clock, however, ultrasound is recommended. LIMITED ULTRASOUND OF LEFT BREAST: 07/14/2021 RESULT: Comparison is made to exams dated: 01/11/2018 mammogram - [facility], 08/11/2018 mammogram, 07/31/2019 mammogram, 06/06/2020 mammogram - [facility], and 12/10/2020 breast MRI [facility]. Real-time ultrasound of the left breast 6 o'clock and 11 o'clock regions was performed. Mathew scale images of the real-time examination were reviewed. There are no solid or cystic masses identified in the area marked as focal pain by the patient at the 6:00 position 7cm from the nipple and the 11:00 6cm from the nipple of the left breast. IMPRESSION: BENIGN FINDING There is no sonographic evidence of malignancy. Return to annual mammogram screening schedule is recommended. Emeli mullen/marcel:07/14/2021 15:59:00 Multiple national specialty organizations have released breast cancer screening guidelines for women at average risk for developing breast cancer - guidelines that are based on both evidence and opinion, yet differ on when to start and how often to screen for breast cancer. With representation from Breast Imaging, Internal Medicine, Women's Health, Family Medicine, and Medical/Surgical Oncology, the [facility] has carefully reviewed the data and reached the following consensus: 1) All women should engage in shared decision-making with their providers to decide when to start and how often to screen; 2) All women should have the opportunity to start screening mammography at age 40; 3) For women ages 45-55, we recommend annual screening mammograms; 4) For women ages 55 and over, we support both the transition from an annual to a biennial interval if this aligns more with patient's values and preferences, or continuation with annual screening; 5) All women should discuss with their providers when to stop screening mammograms. Roller Printer(s): RT Cortes(R)(M), [facility]; RT Gabriel(R)(M), [facility] OVERALL STUDY BIRADS: 2 Benign finding Game Master: Marcel Transcribe Date/Time: Jul 14 2021 3:23P Dictated by: EMELI RIVAS MD This examination was interpreted and the report reviewed and electronically signed by: EMELI RIVAS MD on Jul 14 2021 3:59PM [facility] No Panel InformationOrdered By: [facility] Provider on 07-14-2021 [facility] No Panel Informationon 07-14 Radiology Study observation (narrative) [facility] US Breast - left limitedon 1 09-13-2020 * * *Final Report* * * DATE OF EXAM: Jul 14 2021 3:57PM SSW 0593 - [facility] US BREAST LTD LT / PROCEDURE REASON: multiple diagnoses * * * * Physician Interpretation * * * * RESULT: #[id number] - [facility] DIAGNOSTIC ANNELISE #[id number] - [facility] US BREAST LTD LT BILATERAL DIGITAL DIAGNOSTIC MAMMOGRAM WITH CAD: 07/14/2021 HISTORY: Multiple Diagnoses / Focal pain left breast. for 4 days Multiple Diagnoses. RESULT: TECHNIQUE: The study was acquired using full field digital technology and interpreted from soft copy. Current study was also evaluated with a Computer Aided Detection (CAD). Comparison is made to exams dated: 01/11/2018 mammogram - [facility], 08/11/2018 mammogram, 07/31/2019 mammogram, 06/06/2020 mammogram - [facility], and 12/10/[address] [facility]. The tissue of both breasts is predominantly fatty. The left breast has post-operative findings due to lumpectomy. There is a stable coarse dystrophic calcification in the left breast at 12 o'clock middle depth. No other significant masses, calcifications, or other findings are seen in either breast. DIVISION OF RADIOLOGY Provider, [facility] - 07/14/2021 * * *Final Report* * * DATE OF EXAM: Jul 14 2021 3:57PM SSW 0593 - [employer] BREAST LTD LT / PROCEDURE REASON: multiple diagnoses * * * * Physician Interpretation * * * * RESULT: #[id number] - [facility] DIAGNOSTIC ANNELISE #[id number] - [facility] [employer] Security BREAST LTD LT BILATERAL DIGITAL DIAGNOSTIC MAMMOGRAM WITH CAD: 07/14/2021 HISTORY: Multiple Diagnoses / Focal pain left breast. for 4 days Multiple Diagnoses. RESULT: TECHNIQUE: The study was acquired using full field digital technology and interpreted from soft copy. Current study was also evaluated with a Computer Aided Detection (CAD). Comparison is made to exams dated: 01/11/2018 mammogram - [facility], 08/11/2018 mammogram, 07/31/2019 mammogram, 06/06/2020 mammogram - [facility], and 12/10/[address] [facility]. The tissue of both breasts is predominantly fatty. The left breast has post-operative findings due to lumpectomy. There is a stable coarse dystrophic calcification in the left breast at 12 o'clock middle depth. No other significant masses, calcifications, or other findings are seen in either breast. IMPRESSION IMPRESSION: INCOMPLETE: NEEDS ADDITIONAL IMAGING EVALUATION The stable coarse dystrophic calcification in the left breast is consistent with fat necrosis and is benign. There are no abnormalities seen in the left breast to correspond with the pain at 6 and 11 o'clock, however, ultrasound is recommended. LIMITED ULTRASOUND OF LEFT BREAST: 07/14/2021 RESULT: Comparison is made to exams dated: 01/11/2018 mammogram - [facility], 08/11/2018 mammogram, 07/31/2019 mammogram, 06/06/2020 mammogram - [facility], and 12/10/2020 breast MRI - [facility]. Real-time ultrasound of the left breast 6 o'clock and 11 o'clock regions was performed. Mathew scale images of the real-time examination were reviewed. There are no solid or cystic masses identified in the area marked as focal pain by the patient at the 6:00 position 7cm from the nipple and the 11:00 6cm from the nipple of the left breast. IMPRESSION: BENIGN FINDING There is no sonographic evidence of malignancy. Return to annual mammogram screening schedule is recommended. Emeli mullen/marcel:07/14/2021 15:59:00 Multiple national specialty organizations have released breast cancer screening guidelines for women at average risk for developing breast cancer - guidelines that are based on both evidence and opinion, yet differ on when to start and how often to screen for breast cancer. With representation from Breast Imaging, Internal Medicine, Women's Health, Family Medicine, and Medical/Surgical Oncology, the [facility] has carefully reviewed the data and reached the following consensus: 1) All women should engage in shared decision-making with their providers to decide when to start and how often to screen; 2) All women should have the opportunity to start screening mammography at age 40; 3) For women ages 45-55, we recommend annual screening mammograms; 4) For women ages 55 and over, we support both the transition from an annual to a biennial interval if this aligns more with patient's values and preferences, or continuation with annual screening; 5) All women should discuss with their providers when to stop screening mammograms. Roller Printer(s): Dominga Hill RT(R)(M), [facility]; RT Gabriel(R)(M), [facility] OVERALL STUDY BIRADS: 2 Benign finding Game Master: Marcel Transcribe Date/Time: Jul 14 2021 3:23P Dictated by: EMELI RIVAS MD This examination was interpreted and the report reviewed and electronically signed by: EMELI RIVAS MD on Jul 14 2021 3:59PM [facility] Culture, urine Bacteria identified Cx Nom (U) Positive [facility] Work Phone: Gram stain for investigation of transfusion reaction Microscopic observation Gram stain Nom (Unsp spec) [facility] Work Phone: Thin prep Papanicolaou smear with manual screening Genital Culture Presumptive C albicans [facility] Work Phone: Vital Signs Date Time Vital Sign Value Performing Clinician Facility 05-22-2025 13:04-0400 Body mass index (BMI) [Ratio] 44.22 kg/m2 Savita Griffith APRN.[employer] Work Phone: [facility] 05-22-2025 13:04-0400 Body weight 124.29 kg Savita Griffith APRN.[employer] Work Phone: [facility] 05-22-2025 13:04-0400 Diastolic blood pressure 86 mm[Hg] Savita Griffith APRN.[employer] Work Phone: [facility] 05-22-2025 13:04-0400 Heart rate 98 /min Savita Griffith APRN.[employer] Work Phone: [facility] 05-22-2025 13:04-0400 Respiratory rate 16 /min Savita Griffith APRN.[employer] Work Phone: [facility] 05-22-2025 13:04-0400 SaO2% (BldA) [Mass fraction] 95 % Savita Griffith APRN.[employer] Work Phone: [facility] 05-22-2025 13:04-0400 Systolic blood pressure 128 mm[Hg] Savita Griffith APRN.[employer] Work Phone: [facility] 02-15-2025 10:34-0400 Body mass index (BMI) [Ratio] 45.19 kg/m2 Jacob Cuba APRN.[employer] Work Phone: [facility] 02-15-2025 10:34-0400 Body temperature 97.3 [degF] Jacob Cuba APRN.[employer] Work Phone: [facility] 02-15-2025 10:34-0400 Body weight 127 kg Jacob Cuba APRN.[employer] Work Phone: [facility] 02-15-2025 10:34-0400 Diastolic blood pressure 87 mm[Hg] Jacob Cuba APRN.[employer] Work Phone: [facility] 02-15-2025 10:34-0400 Heart rate 103 /min Jacob Cuba APRN.[employer] Work Phone: [facility] 02-15-2025 10:34-0400 Respiratory rate 18 /min Jacob Cuba APRN.[employer] Work Phone: [facility] 02-15-2025 10:34-0400 SaO2% (BldA) [Mass fraction] 98 % Jacob Cuba APRN.[employer] Work Phone: [facility] 02-15-2025 10:34-0400 Systolic blood pressure 125 mm[Hg] Jacob Cuba APRN.[employer] Work Phone: [facility] 02-07-2025 14:16-0400 Diastolic blood pressure 87 mm[Hg] Dr. Randy Zhang MD Work Phone: [facility] 02-07-2025 14:16-0400 Heart rate 89 /min Dr. Randy Zhang MD Work Phone: [facility] 02-07-2025 14:16-0400 Respiratory rate 17 /min Dr. Randy Zhang MD Work Phone: [facility] 02-07-2025 14:16-0400 SaO2% (BldA) [Mass fraction] 96 % Dr. Randy Zhang MD Work Phone: [facility] 02-07-2025 14:16-0400 Systolic blood pressure 147 mm[Hg] Dr. Randy Zhang MD Work Phone: [facility] 02-07-2025 10:03-0400 Body temperature 97.7 [degF] Dr. Randy Zhang MD Work Phone: [facility] 02-06-2025 20:56-0400 Body height 167.[address] Randy Zhang MD Work Phone: 6(295)065-138489 [place] [address] 02-06-2025 20:56-0400 Body mass index (BMI) [Ratio] 44.7 kg/m2 Dr. Randy Zhang MD Work Phone: 8(989)971-399289 [place] [address] 02-06-2025 20:56-0400 Body weight 125.[address] Randy Zhang MD Work Phone: 7(227)911-083289 [place] [address] 02-06-2025 20:12-0400 Body temperature 98 [degF] Dr. Randy Zhang MD Work Phone: 7(192)963-234189 [place] [address] 02-06-2025 20:12-0400 Diastolic blood pressure 113 mm[Hg] Dr. Randy Zhang MD Work Phone: 9(117)636-842689 [place] [address] 02-06-2025 20:12-0400 Heart rate 98 /min Dr. Randy Zhang MD Work Phone: 0(178)307-944089 [place] [address] 02-06-2025 20:12-0400 Respiratory rate 20 /min Dr. Randy Zhang MD Work Phone: 1(637)488-839589 [place] [address] 02-06-2025 20:12-0400 SaO2% (BldA) [Mass fraction] 97 % Dr. Randy Zhang MD Work Phone: 2(893)728-832389 [place] [address] 02-06-2025 20:12-0400 Systolic blood pressure 151 mm[Hg] Dr. Randy Zhang MD Work Phone: 6(579)714-341618 [place] [address] 02-06-2025 14:40-0400 Body height 167.[address] Randy Zhang MD Work Phone: 9(237)199-011489 [place] [address] 02-06-2025 14:40-0400 Body mass index (BMI) [Ratio] 45.1 kg/m2 Dr. Randy Zhang MD Work Phone: 0(559)524-667918 [place] [address] 02-06-2025 14:40-0400 Body weight 126.[address] Randy Zhang MD Work Phone: 1(356)457-311589 [place] [address] 02-06-2025 13:45-0400 Body height 167.6 cm Randy Zhang MD Work Phone: [facility] 02-06-2025 13:45-0400 Body mass index (BMI) [Ratio] 45.1 kg/m2 Randy Zhang MD Work Phone: [facility] 02-06-2025 13:45-0400 Body weight 126.73 kg Randy Zhang MD Work Phone: [facility] 02-06-2025 13:45-0400 Diastolic blood pressure 78 mm[Hg] Randy Zhang MD Work Phone: [facility] 02-06-2025 13:45-0400 Heart rate 116 /min Randy Zhang MD Work Phone: [facility] 02-06-2025 13:45-0400 SaO2% (BldA) [Mass fraction] 96 % Randy Zhang MD Work Phone: [facility] 02-06-2025 13:45-0400 Systolic blood pressure 114 mm[Hg] Randy Zhang MD Work Phone: [facility] 01-28-2025 14:22-0400 Diastolic blood pressure 88 mm[Hg] Randy Zhang MD Work Phone: [facility] 01-28-2025 14:22-0400 Systolic blood pressure 120 mm[Hg] Randy Zhang MD Work Phone: [facility] 01-28-2025 13:52-0400 Body height 167.6 cm Randy Zhang MD Work Phone: [facility] 01-28-2025 13:52-0400 Body mass index (BMI) [Ratio] 45.06 kg/m2 Randy Zhang MD Work Phone: [facility] 01-28-2025 13:52-0400 Body temperature 97.81 [degF] Randy Zhang MD Work Phone: [facility] 01-28-2025 13:52-0400 Body weight 126.64 kg Randy Zhang MD Work Phone: [facility] 01-28-2025 13:52-0400 Heart rate 103 /min Randy Zhang MD Work Phone: [facility] 01-28-2025 13:52-0400 SaO2% (BldA) [Mass fraction] 96 % Randy Zhang MD Work Phone: [facility] 01-05-2025 10:56-0400 Body temperature 97.4 [degF] Dr. Randy Zhang MD Work Phone: [facility] 01-05-2025 10:56-0400 Diastolic blood pressure 72 mm[Hg] Dr. Randy Zhang MD Work Phone: [facility] 01-05-2025 10:56-0400 Heart rate 81 /min Dr. Randy Zhang MD Work Phone: [facility] 01-05-2025 10:56-0400 Respiratory rate 16 /min Dr. Randy Zhang MD Work Phone: [facility] 01-05-2025 10:56-0400 SaO2% (BldA) [Mass fraction] 99 % Dr. Randy Zhang MD Work Phone: [facility] 01-05-2025 10:56-0400 Systolic blood pressure 125 mm[Hg] Dr. Randy Zhang MD Work Phone: [facility] 01-05-2025 08:07-0400 Body height 167.[address] Randy Zhang MD Work Phone: [facility] 01-05-2025 08:07-0400 Body mass index (BMI) [Ratio] 44.9 kg/m2 Dr. Randy Zhang MD Work Phone: [facility] 01-05-2025 08:07-0400 Body weight 126.[address] Randy Zhang MD Work Phone: [facility] 12-27-2024 08:53-0400 Body mass index (BMI) [Ratio] 44.8 kg/m2 Kaitlin Manuel APRN.[employer] Work Phone: [facility] 12-27-2024 08:53-0400 Body temperature 97.59 [degF] [place] Manuel APPLIQUER ZIGZAG.[employer] Work Phone: [facility] 12-27-2024 08:53-0400 Body weight 125.9 kg Kaitlin Manuel APPLIQUER ZIGZAG.[employer] Work Phone: [facility] 12-27-2024 08:53-0400 Diastolic blood pressure 83 mm[Hg] Kaitlin Blairenter APPLIQUER ZIGZAG.[employer] Work Phone: [facility] 12-27-2024 08:53-0400 Heart rate 103 /min Kaitlin Blairenter APPLIQUER ZIGZAG.[employer] Work Phone: [facility] 12-27-2024 08:53-0400 SaO2% (BldA) [Mass fraction] 95 % Kaitlin Manuel APPLIQUER ZIGZAG.[employer] Work Phone: [facility] 12-27-2024 08:53-0400 Systolic blood pressure 134 mm[Hg] Kaitlin Manuel APPLIQUER [employer]IGZAG.[employer] Work Phone: [facility] 10-31-2024 14:31-0500 Body height 167.6 cm Randy Zhang MD Work Phone: [facility] 10-31-2024 14:31-0500 Body mass index (BMI) [Ratio] 44.71 kg/m2 Randy Zhang MD Work Phone: [facility] 10-31-2024 14:31-0500 Body temperature 98.1 [degF] Randy Zhang MD Work Phone: [facility] 10-31-2024 14:31-0500 Body weight 125.65 kg Randy Zhang MD Work Phone: [facility] 10-31-2024 14:31-0500 Diastolic blood pressure 80 mm[Hg] Randy Zhang MD Work Phone: [facility] 10-31-2024 14:31-0500 Heart rate 106 /min Randy Zhang MD Work Phone: [facility] 10-31-2024 14:31-0500 SaO2% (BldA) [Mass fraction] 94 % Randy Zhang MD Work Phone: [facility] 10-31-2024 14:31-0500 Systolic blood pressure 126 mm[Hg] Randy Zhang MD Work Phone: [facility] 10-15-2024 14:23-0500 Body mass index (BMI) [Ratio] 44.06 kg/m2 Savita Griffith APRN.[employer] Work Phone: [facility] 10-15-2024 14:23-0500 Body weight 123.83 kg Savita Griffith APPLIQUER ZIGZAG.[employer] Work Phone: [facility] 10-15-2024 14:23-0500 Diastolic blood pressure 92 mm[Hg] Savita Griffith APPLIQUER ZIGZAG.[employer] Work Phone: [facility] 10-15-2024 14:23-0500 Heart rate 109 /min Savita Griffith APRN.[employer] Work Phone: [facility] 10-15-2024 14:23-0500 Respiratory rate 16 /min Savita Griffith APRN.[employer] Work Phone: [facility] 10-15-2024 14:23-0500 SaO2% (BldA) [Mass fraction] 96 % Savita Griffith APRN.[employer] Work Phone: [facility] 10-15-2024 14:23-0500 Systolic blood pressure 130 mm[Hg] Savita Griffith APRN.[employer] Work Phone: [facility] 07-19-2024 10:49-0500 Body height 167.6 cm Arleth Alva APRN.[employer] Work Phone: [facility] 07-19-2024 10:49-0500 Body mass index (BMI) [Ratio] 45.52 kg/m2 Arleth Alva APRN.[employer] Work Phone: [facility] 07-19-2024 10:49-0500 Body temperature 96.1 [degF] Arleth Alva APRN.[employer] Work Phone: [facility] 07-19-2024 10:49-0500 Body weight 127.91 kg Arleth Alav APRN.[employer] Work Phone: [facility] 07-19-2024 10:49-0500 Diastolic blood pressure 79 mm[Hg] Arleth Alva APPLIQUER ZIGZAG.[employer] Work Phone: [facility] 07-19-2024 10:49-0500 Heart rate 122 /min Arleth Alva APPLIQUER ZIGZAG.[employer] Work Phone: [facility] 07-19-2024 10:49-0500 Respiratory rate 15 /min Arleth Alav APPLIQUER ZIGZAG.[employer] Work Phone: [facility] 07-19-2024 10:49-0500 SaO2% (BldA) [Mass fraction] 97 % Arleth Alva APPLIQUER ZIGZAG.[employer] Work Phone: [facility] 07-19-2024 10:49-0500 Systolic blood pressure 131 mm[Hg] Arleth Alva APPLIQUER [employer]IGZAG.[employer] Work Phone: [facility] 07-04-2024 11:12-0400 Body mass index (BMI) [Ratio] 44.71 kg/m2 Conrado Masci DO Work Phone: [facility] 07-04-2024 11:12-0400 Body temperature 97.9 [degF] Conrado Masci DO Work Phone: [facility] 07-04-2024 11:12-0400 Body weight 125.65 kg Conrado Masci DO Work Phone: [facility] 07-04-2024 11:12-0400 Diastolic blood pressure 80 mm[Hg] Conrado Masci DO Work Phone: [facility] 07-04-2024 11:12-0400 Heart rate 97 /min Conrado Masci DO Work Phone: [facility] 07-04-2024 11:12-0400 SaO2% (BldA) [Mass fraction] 94 % Conrado Masci DO Work Phone: [facility] 07-04-2024 11:12-0400 Systolic blood pressure 116 mm[Hg] Conrado Masci DO Work Phone: [facility] 06-27-2024 12:57-0400 Body mass index (BMI) [Ratio] 44.05 kg/m2 [place] Manuel APPLIQUER [employer] Work Phone: [facility] 06-27-2024 12:57-0400 Body temperature 97.7 [degF] [place] Manuel APPLIQUER [employer]IGZ[employer] Work Phone: [facility] 06-27-2024 12:57-0400 Body weight 123.8 kg [place] Manuel APPLIQUER [employer] Work Phone: [facility] 06-27-2024 12:57-0400 Diastolic blood pressure 75 mm[Hg] Kaitlin Manuel APPLIQUER [employer]ZAG.[employer] Work Phone: [facility] 06-27-2024 12:57-0400 Heart rate 110 /min [place] Manuel APPLIQUER [employer]IGZ[employer] Work Phone: [facility] 06-27-2024 12:57-0400 SaO2% (BldA) [Mass fraction] 95 % [place] Manuel APPLIQUER ZIGZAG.[employer] Work Phone: [facility] 06-27-2024 12:57-0400 Systolic blood pressure 112 mm[Hg] [place] Manuel APPLIQUER ZIGZAG.[employer] Work Phone: [facility] 06-14-2024 11:18-0400 Body height 167.6 cm [facility] Work Phone: [facility] 06-14-2024 11:18-0400 Body mass index (BMI) [Ratio] 43.77 kg/m2 [facility] Work Phone: [facility] 06-14-2024 11:18-0400 Body temperature 97.81 [degF] [facility] Work Phone: [facility] 06-14-2024 11:18-0400 Body weight 123 kg [facility] Work Phone: [facility] 06-14-2024 11:18-0400 Diastolic blood pressure 67 mm[Hg] [facility] Work Phone: [facility] 06-14-2024 11:18-0400 Heart rate 88 /min [facility] Work Phone: [facility] 06-14-2024 11:18-0400 SaO2% (BldA) [Mass fraction] 97 % [facility] Work Phone: [facility] 06-14-2024 11:18-0400 Systolic blood pressure 130 mm[Hg] [facility] Work Phone: [facility] 06-14-2024 10:30-0400 Body height 166.5 cm Linda Dugan MD Work Phone: [facility] 06-14-2024 10:30-0400 Body mass index (BMI) [Ratio] 44.18 kg/m2 Linda Dugan MD Work Phone: [facility] 06-14-2024 10:30-0400 Body temperature 98.1 [degF] Linda Dugan MD Work Phone: [facility] 06-14-2024 10:30-0400 Body weight 122.47 kg Linda Dugan MD Work Phone: [facility] 06-14-2024 10:30-0400 Diastolic blood pressure 68 mm[Hg] Linda Dugan MD Work Phone: [facility] 06-14-2024 10:30-0400 Heart rate 92 /min Linda Dugan MD Work Phone: [facility] 06-14-2024 10:30-0400 Systolic blood pressure 125 mm[Hg] Linda Dugan MD Work Phone: [facility] 06-13-2024 11:25-0400 Body mass index (BMI) [Ratio] 44.34 kg/m2 Savita Griffith APRN.[employer] Work Phone: [facility] 06-13-2024 11:25-0400 Body weight 122.92 kg Savita Griffith APRN.[employer] Work Phone: [facility] 06-13-2024 11:25-0400 Diastolic blood pressure 92 mm[Hg] Savita Haagen APPLIQUER ZIGZAG.[employer] Work Phone: [facility] 06-13-2024 11:25-0400 Heart rate 88 /min Savita Haagen APPLIQUER ZIGZAG.[employer] Work Phone: [facility] 06-13-2024 11:25-0400 Respiratory rate 16 /min Savita Haagen APPLIQUER ZIGZAG.[employer] Work Phone: [facility] 06-13-2024 11:25-0400 SaO2% (BldA) [Mass fraction] 94 % Savita Haagen APPLIQUER ZIGZAG.[employer] Work Phone: [facility] 06-13-2024 11:25-0400 Systolic blood pressure 126 mm[Hg] Savita Haagen APPLIQUER ZIGZAG.[employer] Work Phone: [facility] 02-08-2024 14:49-0400 Body mass index (BMI) [Ratio] 43.69 kg/m2 Linda Dugan MD Work Phone: [facility] 02-08-2024 14:49-0400 Body weight 121.11 kg Linda Dugan MD Work Phone: [facility] 02-08-2024 14:49-0400 Diastolic blood pressure 78 mm[Hg] Linda Dugan MD Work Phone: [facility] 02-08-2024 14:49-0400 Heart rate 87 /min Linda Dugan MD Work Phone: [facility] 02-08-2024 14:49-0400 Systolic blood pressure 115 mm[Hg] Linda Dugan MD Work Phone: [facility] 02-08-2024 08:08-0400 Diastolic blood pressure 82 mm[Hg] Savita Haagen APPLIQUER [employer]IGZAG.[employer] Work Phone: [facility] 02-08-2024 08:08-0400 Heart rate 91 /min Savita Haagen APPLIQUER ZIGZAG.[employer] Work Phone: [facility] 02-08-2024 08:08-0400 Respiratory rate 16 /min Savita Haagen APPLIQUER ZIGZAG.[employer] Work Phone: [facility] 02-08-2024 08:08-0400 SaO2% (BldA) [Mass fraction] 95 % Savita Griffith APPLIQUER ZIGZAG.[employer] Work Phone: [facility] 02-08-2024 08:08-0400 Systolic blood pressure 118 mm[Hg] Savita Griffith APPLIQUER [employer] Work Phone: [facility] 12-27-2023 13:27-0400 Body temperature 97.9 [degF] Kaitlin Manuel APPLIQUER [employer] Work Phone: [facility] 12-27-2023 13:27-0400 Body weight 122.97 kg Kaitlin Manuel APPLI[employer]ER [employer] Work Phone: [facility] 12-27-2023 13:27-0400 Diastolic blood pressure 85 mm[Hg] Kaitlin Manuel APPLIQUER [employer] Work Phone: [facility] 12-27-2023 13:27-0400 Heart rate 96 /min Kaitlin Manuel APPLIQUER [employer] Work Phone: [facility] 12-27-2023 13:27-0400 SaO2% (BldA) [Mass fraction] 95 % Kaitlin Manuel APPLIQUER [employer]IGZ[employer] Work Phone: [facility] 12-27-2023 13:27-0400 Systolic blood pressure 133 mm[Hg] Kaitlin Manuel APPLIQUER [employer]IGZAG.[employer] Work Phone: [facility] 10-12-2023 10:57-0500 Body height 167.[address] Randy Zhang Work Phone: [facility] 10-12-2023 10:47-0500 Body mass index (BMI) [Ratio] 43.9 kg/m2 Dr. Randy Zhang Work Phone: [facility] 10-12-2023 10:47-0500 Body weight 123.[address] Randy Zhang Work Phone: [facility] 10-12-2023 10:47-0500 Diastolic blood pressure 84 mm[Hg] Dr. Randy Zhang Work Phone: [facility] 10-12-2023 10:47-0500 Systolic blood pressure 124 mm[Hg] Dr. Randy Zhang Work Phone: [facility] 08-01-2023 13:29-0500 Body weight 123.83 kg Savita Haagen APPLIQUER ZIGZAG.CAST SHELL GRINDER Work Phone: [facility] 08-01-2023 13:29-0500 Diastolic blood pressure 84 mm[Hg] Savita Haagen APPLIQUER ZIGZAG.CAST SHELL GRINDER Work Phone: [facility] 08-01-2023 13:29-0500 Heart rate 94 /min Savita Haagen APPLIQUER ZIGZAG.CAST SHELL GRINDER Work Phone: [facility] 08-01-2023 13:29-0500 Respiratory rate 16 /min Savita Riveroagen APPLIQUER ZIGZAG.CAST SHELL GRINDER Work Phone: [facility] 08-01-2023 13:29-0500 SaO2% (BldA) [Mass fraction] 96 % Savita Griffith APPLIQUER ZIGZAG.CAST SHELL GRINDER Work Phone: [facility] 08-01-2023 13:29-0500 Systolic blood pressure 112 mm[Hg] Savita Haagen APPLIQUER ZIGZAG.CAST SHELL GRINDER Work Phone: [facility] 06-27-2023 13:53-0400 Body height 166.5 cm Kaitlin Manuel APPLIQUER ZIGZAG.CAST SHELL GRINDER Work Phone: [facility] 06-27-2023 13:53-0400 Body temperature 97.9 [degF] Kaitlin Manuel APPLIQUER ZIGZAG.CAST SHELL GRINDER Work Phone: [facility] 06-27-2023 13:53-0400 Body weight 124.06 kg [place] Manuel APPLIQUER ZIGZAG.CAST SHELL GRINDER Work Phone: [facility] 06-27-2023 13:53-0400 Diastolic blood pressure 74 mm[Hg] [place] Manuel APPLIQUER ZIGZAG.CAST SHELL GRINDER Work Phone: [facility] 06-27-2023 13:53-0400 Heart rate 91 /min Kaitlin Manuel APPLIQUER ZIGZAG.CAST SHELL GRINDER Work Phone: [facility] 06-27-2023 13:53-0400 SaO2% (BldA) [Mass fraction] 95 % Kaitlin Manuel APRN.CAST SHELL GRINDER Work Phone: [facility] 06-27-2023 13:53-0400 Systolic blood pressure 108 mm[Hg] Kaitlin Manuel APRN.CAST SHELL GRINDER Work Phone: [facility] 05-24-2023 13:38-0400 Body height 167.[address] Randy Zhang Work Phone: [facility] 05-24-2023 13:37-0400 Body mass index (BMI) [Ratio] 43.9 kg/m2 Dr. Randy Zhang Work Phone: [facility] 05-24-2023 13:37-0400 Body weight 123.[address] Randy Zhang Work Phone: [facility] 05-24-2023 13:37-0400 Diastolic blood pressure 80 mm[Hg] Dr. Randy Zhang Work Phone: [facility] 05-24-2023 13:37-0400 Systolic blood pressure 124 mm[Hg] Dr. Randy Zhang Work Phone: [facility] 03-09-2023 11:20-0400 Body temperature 98.1 [degF] Jacob Cuba APRN.CAST SHELL GRINDER Work Phone: [facility] 03-09-2023 11:20-0400 Body weight 118.39 kg Jacob Cuba APRN.CAST SHELL GRINDER Work Phone: [facility] 03-09-2023 11:20-0400 Diastolic blood pressure 80 mm[Hg] Jacob Cuba APRN.CAST SHELL GRINDER Work Phone: [facility] 03-09-2023 11:20-0400 Heart rate 92 /min Jacob Cuba APRN.CAST SHELL GRINDER Work Phone: [facility] 03-09-2023 11:20-0400 Respiratory rate 16 /min Jacob Cuba APRN.CAST SHELL GRINDER Work Phone: [facility] 03-09-2023 11:20-0400 SaO2% (BldA) [Mass fraction] 95 % Jacob Cuba APPLIQUER ZIGZAG.CAST SHELL GRINDER Work Phone: [facility] 03-09-2023 11:20-0400 Systolic blood pressure 124 mm[Hg] Jacob Cuba APRN.CAST SHELL GRINDER Work Phone: [facility] 02-18-2023 13:05-0400 Body height 167.6 cm Brandin Jose PA-C Work Phone: [facility] 02-18-2023 13:05-0400 Body temperature 98.8 [degF] Brandin Jose PA-C Work Phone: [facility] 02-18-2023 13:05-0400 Body weight 117.94 kg Brandin Tuluksak PA-C Work Phone: [facility] 02-18-2023 13:05-0400 Diastolic blood pressure 78 mm[Hg] Brandin Jose PA-C Work Phone: [facility] 02-18-2023 13:05-0400 Heart rate 117 /min Brandin Jose PA-C Work Phone: [facility] 02-18-2023 13:05-0400 SaO2% (BldA) [Mass fraction] 96 % Brandin Jose PA-C Work Phone: [facility] 02-18-2023 13:05-0400 Systolic blood pressure 126 mm[Hg] Brandin Tuluksak PA-C Work Phone: [facility] 08-11-2022 10:54-0500 Body weight 118.39 kg Savita Hamax APPLIQUER ZIGZAG.CAST SHELL GRINDER Work Phone: [facility] 08-11-2022 10:54-0500 Diastolic blood pressure 90 mm[Hg] Savita Haagen APPLIQUER ZIGZAG.CAST SHELL GRINDER Work Phone: [facility] 08-11-2022 10:54-0500 Heart rate 77 /min Savita Haagen APPLIQUER ZIGZAG.CAST SHELL GRINDER Work Phone: [facility] 08-11-2022 10:54-0500 Respiratory rate 18 /min Savita Griffith APPLIQUER ZIGZAG.CAST SHELL GRINDER Work Phone: [facility] 08-11-2022 10:54-0500 SaO2% (BldA) [Mass fraction] 93 % Savita Griffith APPLIQUER ZIGZAG.CAST SHELL GRINDER Work Phone: [facility] 08-11-2022 10:54-0500 Systolic blood pressure 116 mm[Hg] Savita Griffith APPLIQUER ZIGZAG.CAST SHELL GRINDER Work Phone: [facility] 06-14-2022 15:27-0400 Diastolic blood pressure 88 mm[Hg] Randy Zhang MD Work Phone: [facility] 06-14-2022 15:27-0400 Systolic blood pressure 124 mm[Hg] Randy Zhang MD Work Phone: [facility] 06-14-2022 14:50-0400 Body height 167.6 cm Randy Zhang MD Work Phone: [facility] 06-14-2022 14:50-0400 Body weight 121.75 kg Randy Zhang MD Work Phone: [facility] 06-14-2022 14:50-0400 Heart rate 102 /min Randy Zhang MD Work Phone: [facility] 06-14-2022 14:50-0400 SaO2% (BldA) [Mass fraction] 97 % Randy Zhang MD Work Phone: [facility] 05-12-2022 09:54-0400 Body weight 126.1 kg Fm Wstr Work Phone: [facility] 05-12-2022 09:54-0400 Diastolic blood pressure 78 mm[Hg] Fm Wstr Work Phone: [facility] 05-12-2022 09:54-0400 Heart rate 88 /min Fm Wstr Work Phone: [facility] 05-12-2022 09:54-0400 Systolic blood pressure 124 mm[Hg] Fm Wstr Work Phone: [facility] 04-08-2022 15:01-0400 Body height 167.[address] Randy Zhang Work Phone: [facility] Work Phone: Encounters Encounter Date Encounter Type Care Provider Facility Start: 07-03-2025 [facility] Facility :[facility] Start: 06-24-2025 End: 06-24-2025 [facility] Facility:[facility] Start: 05-22-2025 End: 05-22-2025 Office outpatient visit 25 minutes Savita Griffith APPLIQUER ZIGZAG.CAST SHELL GRINDER Work Phone: [facility] [place] Comment on above: Fatigue, unspecified type (Primary Dx); Generalized abdominal pain; Anxiety and depression Start: 05-22-2025 End: 05-22-2025 [facility] Facility:[facility] Start: 05-17-2025 End: 05-17-2025 Refill Savita Riveroagen APPLIQUER ZIGZAG.CAST SHELL GRINDER Work Phone: [facility] Comment on above: Refill Request Start: 05-03-2025 End: 05-03-2025 Refill Savita Hamax APPLIQUER ZIGZAG.CAST SHELL GRINDER Work Phone: [facility] Comment on above: Refill Request Start: 04-23-2025 End: 04-26-2025 Follow-up encounter Savita Griffith APPLIQUER ZIGZAG.CAST SHELL GRINDER Work Phone: Family [facility] [place] Start: 04-19-2025 [facility] :[facility] Start: 04-19-2025 End: 04-19-2025 Subsequent hospital visit by physician Mammo/Bone Density [facility] Radiology Mammography and Bone Density Department Comment on above: Malignant neoplasm o f upper-outer quadrant of left breast in female, estrogen receptor positive (HCC) [C50.412, Z17.0] Start: 04-17-2025 End: 04-17-2025 [facility] Facility:[facility] Start: 04-15-2025 End: 04-15-2025 Refill Savita Haagen APPLIQUER ZIGZAG.CAST SHELL GRINDER Work Phone: Family [facility] Comment on above: Refill Request Start: 04-09-2025 End: 04-10-2025 Refill Savita Griffith APPLIQUER ZIGZAG.CAST SHELL GRINDER Work Phone: [facility] Comment on above: Refill Request Start: 04-03-2025 End: 04-03-2025 Orders Only Rebecca Syed PA-C Work Phone: Orthopaedics Comment on above: Right shoulder pain, unspecified chronicity (Primary Dx) Start: 02-19-2025 End: 02-20-2025 Refill Savita Griffith APPLIQUER ZIGZAG.CAST SHELL GRINDER Work Phone: [facility] Comment on above: Refill Request Start: 02-15-2025 End: 02-15-2025 Patient encounter procedure Jacob Cuba APRN.CAST SHELL GRINDER Work Phone: [facility] Comment on above: Sore throat (Primary Dx) Start: 02-15-2025 End: 02-15-2025 ambulatory RANDY ZHANG Facility:[facility] Start: 02-08-2025 End: 02-14-2025 Telephone encounter Randy Zhang MD Work Phone: [facility] Start: 02-07-2025 Non-patient / Non-visit Dr. Jocelyne MERINO -[facility] Work Phone: Start: 02-06-2025 End: 02-06-2025 ambulatory Cristopher Tavera [facility] Start: 02-06-2025 End: 02-07-2025 ambulatory Cristopher Tavera Facility:[facility] Start: 02-06-2025 End: 02-07-2025 Evaluation and management of inpatient Dr. Cristopher Tavera MD -Progressive Care Unit Work Phone: Start: 02-06-2025 End: 02-07-[address] Randy Zhang MD Work Phone: [facility] Work Phone: Start: 02-06-2025 End: 02-06-2025 Patient encounter procedure Randy Zhang MD Work Phone: [facility] Comment on above: Right-sided chest pa in (Primary Dx); Personal history of pulmonary embolism; Pain of right upper extremity Start: 02-06-2025 End: 02-06-2025 ambulatory RANDY ZHANG Facility:[facility] Start: 02-01-2025 End: 02-05-2025 Refill Randy Zhang MD Work Phone: [facility] Comment on above: Refill Request Start: 01-29-2025 End: 03-31-2025 Follow-up encounter Randy Zhang MD Work Phone: [facility] Start: 01-28-2025 End: 01-28-2025 Patient encounter procedure Randy Zhang MD Work Phone: [facility] Comment on above: Acute pain of right shoulder (Primary Dx); 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eft breast in female, estrogen receptor positive (HCC); Primary hypertension; Family history of ischemic heart disease; Type 2 diabetes mellitus with hyperglycemia, without long-term current use of insulin (HCC); Lymphedema; URI, acute; Hypokalemia Start: 01-28-2025 End: 01-28-2025 ambulatory RANDY ZHANG Facility:[facility] Start: 01-05-2025 End: 01-05-2025 Emergency department patient visit Dr. Randy Zhang MD Work Phone: -Emergency Department Work Phone: Start: 12-27-2024 End: 12-27-2024 Telephone encounter Kaitlin Manuel APRN.CNP Work Phone: Hematology/Oncology Comment on above: AVS 12/27 Start: 12-27-2024 End: 12-27-2024 Follow-up encounter Kaitlin Manuel APRN.CNP Work Phone: Hematology/Oncology Comment on above: Encounter for follow -up surveillance of breast cancer (Primary Dx) Start: 12-27-2024 End: 12-27-2024 Patient encounter procedure Kaitlin Manuel APRN.CNP Work Phone: Hematology/Oncology Start: 12-27-2024 End: 12-27-2024 ambulatory KAITLIN MANUEL Facility:[facility] Start: 11-08-2024 End: 11-09-2024 Refill [facility] Comment on above: Refill Request Start: 11-01-2024 End: 01-01-2025 Follow-up encounter Randy Zhang MD Work Phone: [facility] Start: 10-31-2024 End: 10-31-2024 ambulatory RANDY ZHANG Facility:[facility] Start: 10-31-2024 End: 10-31-2024 Patient encounter procedure Randy Zhang MD Work Phone: [facility] Comment on above: URI, acute (Primary Dx); Hiatal hernia with GERD without esophagitis; Left otitis media, unspecified otitis media type Start: 10-16-2024 End: 10-18-2024 Telephone encounter Savita Griffith APRN.CAST SHELL GRINDER Work Phone: [facility] Comment on above: Results Start: 10-15-2024 End: 10-15-2024 [facility] Facility:[facility] Start: 10-15-2024 End: 10-15-2024 Office outpatient visit 25 minutes Savita Griffith APRN.CAST SHELL GRINDER Work Phone: [facility] Comment on above: Anxiety and depressi on (Primary Dx); Hot flashes; Essential hypertension; Type 2 diabetes mellitus with hyperglycemia, without long-term current use of insulin (HCC); Viral sinusitis Start: 10-15-2024 End: 10-15-2024 ambulatory [facility] Facility:[facility] Start: 09-03-2024 End: 09-03-2024 Refill Savita Griffith APRN.CAST SHELL GRINDER Work Phone: [facility] Comment on above: Refill Request Start: 08-27-2024 Encounter for other preprocedural examination Alejandra Wick [facility] Start: 08-16-2024 End: 08-16-2024 Chart abstracting Linda Dugan MD Work Phone: Plastic Surgery Comment on above: PHOTOS TAKEN Start: 08-16-2024 End: 08-16-2024 ambulatory [facility] Facility:[facility] Start: 08-16-2024 End: 08-16-2024 Patient encounter procedure Linda Dugan MD Work Phone: Plastic Surgery Comment on above: S/P breast reconstru ction (Primary Dx); HX: breast cancer; Breast asymmetry following reconstructive surgery Start: 08-13-2024 End: 08-13-2024 ambulatory Alejandra Wick [facility] Start: 07-31-2024 ambulatory Alejandra Wick Faci lity:[facility] Start: 07-31-2024 End: 07-31-2024 ambulatory Alejandra Jhaterra alta Facility:[facility] Start: 07-23-2024 End: 07-23-2024 Refill Randy Zhang MD Work Phone: [facility] Comment on above: Refill Request Start: 07-19-2024 End: 07-19-2024 [facility] Facility:[facility] Start: 07-19-2024 End: 07-19-2024 Patient encounter procedure Arleth Alva APRN.CNP Work Phone: Plastic Surgery Comment on above: Post-operative state (Primary Dx); S/P breast reconstruction; Encounter for change or removal of drains Start: 07-09-2024 End: 07-09-2024 [facility] Facility:[facility] Start: 07-04-2024 End: 07-04-2024 Office outpatient visit 25 minutes Conrado Pool DO Work Phone: Hematology/Oncology Comment on above: History of pulmonary embolism (Primary Dx) Start: 06-29-2024 End: 07-03-2024 Refill Randy Zhang MD Work Phone: [facility] Comment on above: Refill Request Fibrocystic breast c hanges of both breasts (Primary Dx); Personal history of breast cancer; Fat necrosis; Encounter for screening mammogram for breast cancer Follow Up Start: 06-28-2024 End: 06-28-2024 Telephone encounter Linda Dugan MD Work Phone: Plastic Surgery Start: 06-27-2024 End: 06-27-2024 Follow-up encounter Kaitlin Manuel SEAN.CAST SHELL GRINDER Work Phone: Hematology/Oncology Comment on above: Encounter for follow -up surveillance of breast cancer (Primary Dx); Personal history of breast cancer Start: 06-27-2024 End: 06-27-2024 Patient encounter procedure Kaitlin Manuel APPLIQUER ZIGZAG.CAST SHELL GRINDER Work Phone: Hematology/Oncology Start: 06-23-2024 End: 06-26-2024 Admission to same day surgery center Kaitlin Manuel APPLIQUER ZIGZAG.CAST SHELL GRINDER Work Phone: Hematology/Oncology Comment on above: Surgery on June 13 Start: 06-23-2024 End: 06-26-2024 ambulatory Kaitlin Manuel APPLIQUER ZIGZAG.CAST SHELL GRINDER Work Phone: Hematology/Oncology Start: 06-22-2024 End: 06-22-2024 ambulatory [facility] Facility[facility] Start: 06-22-2024 End: 06-22-2024 ambulatory [facility] Facility:[facility] Start: 06-18-2024 End: 06-18-2024 Emergency department patient visit [facility] Facility:[facility] Start: 06-14-2024 End: 06-14-2024 Admission to [facility] Work Phone: Pre Anesthesia Start: 06-14-2024 End: 06-14-2024 Anesthesia consultation [facility] Work Phone: Pre Anesthesia Comment on above: Pre-op evaluation (P rimary Dx); Impaired fasting glucose; PONV (postoperative nausea and vomiting); Type 2 diabetes mellitus with hyperglycemia, without long-term current use of insulin (HCC); Obesity, Class III, BMI >= 40; Hiatal hernia with GERD without esophagitis; Primary hypertension; Anxiety and depression Start: 06-14-2024 End: 06-14-2024 Preprocedural examination done [facility] [address] 9 Work Phone: [facility] Work Phone: Start: 06-14-2024 End: 06-14-2024 Patient encounter procedure Linda Dugan MD Work Phone: Plastic Surgery Comment on above: Pre-op evaluation (P rimary Dx) Start: 06-14-2024 End: 06-14-2024 Preprocedural examination done Linda Dugan MD Work Phone: [facility] Start: 06-13-2024 End: 06-13-2024 Office outpatient visit 25 minutes Savita Griffith APRN.CAST SHELL GRINDER Work Phone: [facility] Comment on above: Anxiety and depressi on (Primary Dx); Hot flashes; Type 2 diabetes mellitus with hyperglycemia, without long-term current use of insulin (HCC) Start: 05-28-2024 Encounter for gynecological examination (general) (routine) [facility] Start: 05-28-2024 End: 05-28-2024 ambulatory Alejandra Wick Facility[facility] Start: 05-27-2024 End: 05-28-2024 Refill Maia Killian APRN.CAST SHELL GRINDER Work Phone: [facility] Comment on above: Refill Request Start: 05-10-2024 End: 05-10-2024 E-mail encounter from caregiver [facility] Provider Pre Anesthesia Start: 05-10-2024 End: 05-10-2024 Patient encounter procedure [facility] Provider Pre Anesthesia Comment on above: Please call back to schedule your Pre-Anesthesia Consultation appointment (REQUIRED) Start: 05-01-2024 End: 05-03-2024 Refill Savita Griffith APRN.CNP Work Phone: [facility] Comment on above: Refill Request Start: 04-02-2024 ambulatory Randy Zhang MD Work Phone: [facility] Comment on above: Pharmacy change Start: 03-22-2024 ambulatory Randy Zhang MD Work Phone: [facility] Comment on above: Blood glucose meter Start: 03-12-2024 End: 03-12-2024 ambulatory Alejandra Wick Facility[facility] Start: 03-12-2024 End: 03-12-2024 [facility] Start: 03-05-2024 Refill Maia A S uppan APPLIQUER ZIGZAG.HAND PAINT MIXER Work Phone: [facility] [place] Comment on above: Refill Request Start: 02-26-2024 Refill Savita Haagen APPLIQUER ZIGZAG.CAST SHELL GRINDER Work Phone: [facility] [place] Comment on above: Refill Request Start: 02-10-2024 Refill Maia A S uppan APPLIQUER ZIGZAG.HAND PAINT MIXER Work Phone: [facility] [place] Comment on above: Refill Request Start: 02-08-2024 End: 02-08-2024 Patient encounter procedure Linda Dugan MD Work Phone: Plastic Surgery Comment on above: HX: breast cancer (P rimary Dx); S/P breast reconstruction; Breast asymmetry following reconstructive surgery; Hx pulmonary embolism Start: 02-08-2024 Chart abstracting Linda Dugan MD Work Phone: Plastic Surgery Comment on above: PHOTOS TAKEN Start: 02-08-2024 End: 02-08-2024 Office outpatient visit 25 minutes Savita Griffith APPLIQUER ZIGZAG.CAST SHELL GRINDER Work Phone: [facility] [place] Comment on above: Type 2 diabetes valerie itus with hyperglycemia, without long-term current use of insulin (HCC) (Primary Dx); Anxiety and depression; [place]burn; Essential hypertension; Encounter for immunization; Hiatal hernia with GERD without esophagitis Start: 02-02-2024 Refill Maia A S uppan APPLIQUER ZIGZAG.HAND PAINT MIXER Work Phone: [facility] [place] Comment on above: Refill Request Start: 02-02-2024 Refill Maia A S uppan APPLIQUER ZIGZAG.HAND PAINT MIXER Work Phone: [facility] [place] Comment on above: Refill Request Start: 01-21-2024 Documentation procedure Mammog autumn Coordinator [facility] Start: 01-21-2024 Letter encounter Mammography Coordinator [facility] Start: 01-20-2024 End: 01-20-2024 Subsequent hospital visit by physician Screen Mammo [facility] Comment on above: Malignant neoplasm o f upper-outer quadrant of left breast in female, estrogen receptor positive (HCC) [C50.412, Z17.0] Start: 01-07-2024 Refill Maia A S uppan APPLIQUER ZIGZAG.HAND PAINT MIXER Work Phone: [facility] [place] Comment on above: Refill Request Start: 01-04-2024 ambulatory [place]standerson Almeida r APPLIQUER ZIGZAG.CAST SHELL GRINDER Work Phone: Hematology/Oncology Comment on above: Plastic surgeon/ Dr Dugan Mammogram/ Maryana Mosqueda Start: 01-02-2024 Refill Randy Zhang MD Work Phone: [facility] [place] Comment on above: Refill Request Question about brca results Start: 12-30-2023 Refill Maia A S uppan APPLIQUER ZIGZAG.HAND PAINT MIXER Work Phone: [facility] [place] Comment on above: Refill Request Start: 12-27-2023 End: 12-27-2023 ambulatory Kaitlin Manuel APPLIQUER ZIGZAG.CAST SHELL GRINDER Work Phone: Hematology/Oncology Comment on above: Personal history of breast cancer (Primary Dx) Start: 12-27-2023 End: 12-27-2023 Patient encounter procedure Kaitlin Manuel APPLIQUER ZIGZAG.CAST SHELL GRINDER Work Phone: [facility] Start: 12-20-2023 Refill Savita Haagen APPLIQUER ZIGZAG.CAST SHELL GRINDER Work Phone: [facility] [place] Comment on above: Refill Request Start: 12-02-2023 ambulatory Savita Haagen APPLIQUER ZIGZAG.CAST SHELL GRINDER Work Phone: [facility] Comment on above: Blood pressure monit or Refill Request Start: 11-25-2023 Refill Savita Haagen APPLIQUER ZIGZAG.CAST SHELL GRINDER Work Phone: [facility] Comment on above: Refill Request Start: 11-23-2023 Refill Maia A S uppan APPLIQUER ZIGZAG.HAND PAINT MIXER Work Phone: [facility] [place] Comment on above: Refill Request Start: 11-14-2023 Refill Savita Haagen APPLIQUER ZIGZAG.CAST SHELL GRINDER Work Phone: [facility] [place] Comment on above: Refill Request Start: 10-15-2023 End: 10-15-2023 ambulatory MAIA PELAEZ APRN Facility:[facility] Start: 10-12-2023 End: 10-12-[address] Randy Zhang Work Phone: [facility] Work Phone: Start: 10-12-2023 End: 10-12-[address] Randy Zhang Work Phone: [facility]-Laboratory, Specimen Work Phone: Start: 10-11-2023 End: 10-11-[address] Randy Zhang Work Phone: [facility] Work Phone: Start: 10-11-2023 End: 10-11-[address] Randy Zhang Work Phone: [facility]-Laboratory, OP Pavilion Start: 10-07-2023 End: 10-07-2023 ambulatory MARISA CUNNINGHAM MD~[id number] Facility:[facility] Start: 08-01-2023 End: 08-01-2023 Office outpatient visit 25 minutes Savita Griffith APRN.CAST SHELL GRINDER Work Phone: [facility] Comment on above: Type 2 diabetes valerie itus with hyperglycemia, without long-term current use of insulin (HCC) (Primary Dx); Essential hypertension; Elevated liver enzymes; Osteoporosis, unspecified osteoporosis type, unspecified pathological fracture presence; Anxiety and depression; Encounter for immunization Start: 06-30-2023 Refill Randy Zhang MD Work Phone: [facility] Comment on above: Refill Request Start: 06-29-2023 Refill [facility] Zhang MD [facility] [facility] Comment on above: Refill Request Start: 06-27-2023 End: 06-27-2023 ambulatory Kaitlin Manuel APRN.CAST SHELL GRINDER Work Phone: Hematology/Oncology Comment on above: Personal history of breast cancer (Primary Dx) Start: 06-27-2023 End: 06-27-2023 Patient encounter procedure Kaitlin Manuel APPLIQUER ZIGZAG.CAST SHELL GRINDER Work Phone: [facility] Start: 06-21-2023 Telephone encounter Kaitlin Blair tanner APPLIQUER ZIGZAG.CAST SHELL GRINDER Work Phone: Hematology/Oncology Comment on above: Appointment Reschedu led Start: 06-01-2023 End: 06-01-[address] Randy Zhang Work Phone: [facility] Work Phone: Start: 06-01-2023 End: 06-01-[address] Randy Zhang Work Phone: [facility] Work Phone: Start: 05-30-2023 Refill Randy Zhang MD Work Phone: [facility] Comment on above: Refill Request Start: 05-24-2023 End: 05-24-[address] Randy Zhang Work Phone: [facility] Work Phone: Start: 05-24-2023 End: 05-24-[address] Randy Zhang Work Phone: [facility] Work Phone: Start: 04-12-2023 ambulatory Randy Zhang MD Work Phone: [facility] Comment on above: Medication Start: 03-09-2023 End: 03-09-2023 Patient encounter procedure Jacob Cuba APRN.CAST SHELL GRINDER Work Phone: [facility] Comment on above: Pain, dental (Primar y Dx) Refill Request Start: 03-08-2023 Refill Randy Zhang MD Work Phone: [facility] Comment on above: Refill Request Start: 02-18-2023 End: 02-18-2023 Patient encounter procedure Brandin Garcia PA-C Work Phone: General Surgery Comment on above: Hiatal hernia with G ERD without esophagitis; Screening for colon cancer; Lump of skin of back Start: 02-05-2023 Refill Randy Zhang MD Work Phone: [facility] Comment on above: Refill Request Start: 02-01-2023 ambulatory Randy Zhang MD Work Phone: [facility] Comment on above: Fluoxetine Start: 12-11-2022 Refill Randy Zhang MD Work Phone: [facility] Comment on above: Refill Request Start: 11-09-2022 Refill Randy Zhang MD Work Phone: [facility] Comment on above: Refill Request Start: 10-27-2022 End: 10-27-2022 Subsequent hospital visit by physician Screen Mammo [facility] Comment on above: Encounter for screen ing mammogram for breast cancer [Z12.31] Start: 10-15-2022 End: 10-15-2022 ambulatory [facility] Work Phone: Start: 10-15-2022 End: 10-15-2022 Patient encounter procedure [facility] Ultrasound Start: 10-14-2022 Refill Randy Zhang MD Work Phone: [facility] Comment on above: Refill Request Start: 10-10-2022 Refill Randy Zhang MD Work Phone: [facility] Comment on above: Refill Request Start: 09-08-2022 Refill Randy Zhang MD Work Phone: [facility] Comment on above: Refill Request Start: 08-11-2022 End: 08-11-2022 Office outpatient visit 15 minutes Savita Griffith APRN.CAST SHELL GRINDER Work Phone: [facility] Comment on above: Type 2 diabetes valerie itus without complication, without long- term current use of insulin (HCC) (Primary Dx) Start: 07-27-2022 Refill Randy Zhang MD Work Phone: [facility] Comment on above: Refill Request Start: 07-22-2022 Telephone encounter Jade Mosqueda APRN.CAST SHELL GRINDER Work Phone: [facility] Comment on above: Appointment Start: 07-20-2022 ambulatory Jade landon APPLIQUER ZIGZAG.CAST SHELL GRINDER Work Phone: [facility] Comment on above: Mammogram Start: 07-08-2022 Telephone encounter Randy Zhang MD Work Phone: [facility] [place] Comment on above: Patient Update Start: 06-14-2022 End: 06-14-2022 Patient encounter procedure Randy Zhang MD Work Phone: [facility] [place] Comment on above: Type 2 diabetes valerie itus with hyperglycemia, without long-term current use of insulin (HCC) (Primary Dx); Essential hypertension; Anxiety and depression; Screening for HIV (human immunodeficiency virus) Start: 06-03-2022 ambulatory Randy Zhang MD Work Phone: [facility] [place] Comment on above: I changed pharmacies Start: 06-01-2022 ambulatory Kaitlin granados APPLIQUER ZIGZAG.CAST SHELL GRINDER Work Phone: Hematology/Oncology Comment on above: Reschedule again Start: 05-22-2022 ambulatory Kaitlin granados APPLIQUER ZIGZAG.CAST SHELL GRINDER Work Phone: Hematology/Oncology Comment on above: Need to reschedule a ppt Start: 05-12-2022 Telephone encounter Savita santana APPLIQUER ZIGZAG.CAST SHELL GRINDER Work Phone: [facility] [place] Comment on above: Nutrition Counseling Start: 05-12-2022 End: 05-12-2022 Nursing evaluation of patient and report Fm Diabetes Nurse Wstr Work Phone: [facility] [place] Comment on above: Type 2 diabetes valerie itus with hyperglycemia, without long-term current use of insulin (HCC) Start: 04-14-2022 Documentation procedure Mammog autumn Coordinator [facility] Start: 04-14-2022 Letter encounter Mammography Coordinator [facility] Start: 04-14-2022 End: 04-14-2022 Subsequent hospital visit by physician [facility] (1.5t) Radiology Comment on above: Personal history of breast cancer [Z85.3] Start: 04-09-2022 End: 04-09-[address] Randy Zhang Work Phone: [facility]Laboratory, Specimen Start: 04-08-2022 End: 04-08-[address] Randy Zhang Work Phone: [facility] Start: 03-29-2022 ambulatory Kaitlin granados APRN.CAST SHELL GRINDER Work Phone: Hematology/Oncology Comment on above: Lump concern Start: 03-11-2022 ambulatory Randy Zhang MD Work Phone: [facility] Comment on above: Prescription Start: 02-01-2022 ambulatory Randy Zhang MD Work Phone: [facility] [place] Comment on above: My covid test Start: 12-16-2021 Telephone encounter Randy Zhang MD Work Phone: [facility] [place] Comment on above: Results Start: 12-10-2021 End: 12-10-2021 Patient encounter procedure Benjamín Rust Work Phone: Podiatry Comment on above: Tendonitis, Achilles , right (Primary Dx) Start: 12-09-2021 Telephone encounter Kaitlin hart APRN.CAST SHELL GRINDER Work Phone: Hematology/Oncology Comment on above: Results Start: 12-04-2021 End: 12-04-2021 ambulatory Injection [facility] Work Phone: Hematology/Oncology Comment on above: Malignant neoplasm o f upper-outer quadrant of left female breast, unspecified estrogen receptor status (HCC) (Primary Dx) Start: 12-01-2021 End: 12-01-2021 Subsequent hospital visit by physician Xr [facility] Work Phone: Radiology Comment on above: Acute right ankle pa in [M25.571] Start: 10-27-2021 Telephone encounter Savita santana APRN.CAST SHELL GRINDER Work Phone: [facility] Comment on above: Opened In Error Start: 07-14-2021 End: 07-14-2021 Subsequent hospital visit by physician [facility] Work Phone: Mammography Comment on above: Lump of left breast [N63.20] Procedures Date Procedure Procedure Detail Performing Clinician Start: 02-15-2025 Iadna streptococcus group a amplified probe tq Jacob Cuba APPLIQUER ZIGZAG.CAST SHELL GRINDER Work Phone: Start: 02-07-2025 Cardiovascular stres s test using pharmacologic stress agent Dr. Randy Zhang MD Work Phone: Start: 02-06-2025 CT angiography of ch est with contrast Dr. Randy Zhang MD Work Phone: Start: 02-06-2025 D-dimer assay, quantitative Dr. Randy Zhang MD Work Phone: Comment on above: NORMAL D-Dimer level (<0.50) indicates no DVT or PE. Start: 02-06-[address] Randy Zhang MD Work Phone: Start: 02-06-2025 X-ray of chest, PA a nd lateral views Dr. Randy Zhang MD Work Phone: Start: 01-05-2025 Urnls dip stick/tabl et reagent auto microscopy Dr. Randy Zhang MD Work Phone: Start: 01-05-[address] Randy Zhang MD Work Phone: Start: 01-05-2025 Plain X-ray of shoulder Dr. Randy Zhang MD Work Phone: Start: 06-14-2024 Ecg routine ecg w/le ast 12 lds i&r only Tameka Madan Kunz APPLIQUER ZIGZAG.CAST SHELL GRINDER Work Phone: Start: 08-01-2023 INFLUENZA VACCINE, A GE 6 MO - 64 YR, QUADRIVALENT (AFLURIA, FLULAVAL, FLUZONE) Savita Griffith APPLIQUER ZIGZAG.CAST SHELL GRINDER Work Phone: Start: 06-01-[address] Jay Jay Zhang Work Phone: Start: 06-01-[address] Randy Zhang Work Phone: Start: 03-29-2023 Colonoscopy Randy Schilling MD Work Phone: Start: 10-27-2022 DIANE SCREENING W ERNESTO Mak Mosqueda APRN.CAST SHELL GRINDER Work Phone: Start: 10-27-2022 Mammography Randy Schilling MD Work Phone: Start: 10-15-2022 Pelvic echography Start: 10-15-2022 Transvaginal echography Start: 08-11-2022 Hemoglobin A1c/Hemoglobin.total in Blood Savita Griffith APRN.CAST SHELL GRINDER Work Phone: Start: 06-14-2022 INFLUENZA VACCINE QUADRIVALENT 6 MO - 64 YRS IM Randy Zhang MD Work Phone: Start: 04-14-2022 Mri breast without&w ith contrast w/cad bilateral Jade Mosqueda APRN.CAST SHELL GRINDER Work Phone: Start: 12-01-2021 Radex ankle complete minimum 3 views Savita Griffith APRN.CAST SHELL GRINDER Work Phone: Start: 07-14-2021 Us breast uni real t tony with image limited Jade Mosqueda APRN.CAST SHELL GRINDER Work Phone: Start: 07-14-2021 Diagnostic mammograp hy computer-aided detcj bi Jade Mosqueda APRN.CAST SHELL GRINDER Work Phone: Start: 06-07-2021 Adult depression scr eening assessment [facility] Work Phone: Start: 06-06-2020 Mammography [facility] Work Phone: Cytopathology proced ure, preparation of smear, genital source Dr. Randy Zhang Work Phone: Investigation of transfusion reaction Dr. Randy Zhang Work Phone: Urine culture Dr. Randy Schilling Work Phone: Plan of Treatment Date Care Activity Detail Author Start: 03-29-2033 Colonoscopy COLONOSCOPY [facility] Start: 03-29-2033 COLORECTAL CANCER SCREENING COLORECTAL CANCER SCREENING [facility] Start: 03-29-2033 Screening for malignant neoplasm of colon [facility] Start: 01-28-2027 Urine microalbumin profile [facility] Start: 05-22-2026 Annual PCP Team Chronic Disease Visit Annual PCP Team Chronic Disease Visit [facility] Start: 04-19-2026 Screening for malignant neoplasm of breast Mammogram Screening [facility] Start: 04-17-2026 Annual PCP Team Chronic Disease Visit Annual PCP Team Chronic Disease Visit [facility] Start: 04-17-2026 Diabetic foot examination Diabetic Foot Exam [facility] Start: 04-17-2026 Hepatitis B screening Urine Albumin:Creatinine Ratio [facility] Start: 02-06-2026 Annual PCP Team Chronic Disease Visit Annual PCP Team Chronic Disease Visit [facility] Start: 02-06-2026 BP Controlled (<130/80) BP Controlled (<130/80) [facility] Start: 01-28-2026 Annual PCP Team Chronic Disease Visit Annual PCP Team Chronic Disease Visit [facility] Start: 10-31-2025 Annual PCP Team Chronic Disease Visit Annual PCP Team Chronic Disease Visit [facility] Start: 10-18-2025 Hemoglobin A1c measurement HbA1C [facility] Start: 10-15-2025 Annual PCP Team Chronic Disease Visit Annual PCP Team Chronic Disease Visit [facility] Start: 10-15-2025 Hepatitis B surface antibody level LDL Cholesterol [facility] Start: 06-28-2025 End: 06-28-2025 ambulatory 06/28/2025 10:30 AM EDT Visit (SP) Office Hematology/Oncology [address] [place] [id number] Kaitlin Manuel APRN.CAST SHELL GRINDER [address] [place] [address] 6 MTH OV* Hematology/Oncology Comment on above: 6 MTH OV* Start: 06-27-2025 BP Controlled (<130/80) BP Controlled (<130/80) [facility] Start: 06-27-2025 End: 06-27-2025 Patient encounter procedure 06/27/2025 11:30 AM EDT Office Visit General Surgery [address] [place] [id number] Elroy Foy MD [address] [place] [address] Generalized abdominal pain [R10.84] General Surgery Comment on above: Generalized abdominal pain [R10.84] Start: 06-24-2025 End: 06-24-2025 Patient encounter procedure 06/24/2025 2:00 PM EDT Office Visit [facility] [address] [place] [address] Savita Griffith, SEAN.CAST SHELL GRINDER [address] [place] [address] 1 month f/u Family [facility] [place] Comment on above: 1 month f/u Start: 06-13-2025 Annual PCP Team Chronic Disease Visit Annual PCP Team Chronic Disease Visit [facility] Start: 05-22-2025 End: 05-22-2025 Patient encounter procedure 05/22/2025 1:00 PM EDT Office Visit [facility] [address] [facility] [place] [address] Savita Griffith, SEAN.CAST SHELL GRINDER [address] [place] [address] 1 month follow up- blood pressure and increased med dosage [facility] [place] Comment on above: 1 month follow up- blood pressure and in creased med dosage Start: 05-20-2025 End: 05-20-2025 Patient encounter procedure 05/20/2025 2:00 PM EDT Office Visit [facility] [place] [address] [place] [address] Savita Griffith, APPLIQUER ZIGZAG.CAST SHELL GRINDER [address] [place] [address] 1 month follow up- blood pressure and increased med dosage [facility] [place] Comment on above: 1 month follow up- blood pressure and in creased med dosage Start: 05-13-2025 Influenza vaccination [facility] Start: 04-23-2025 End: 07-22-2025 Basic metabolic 2000 panel - Serum or Plasma BASIC METABOLIC PANEL Lab Routine Hypokalemia Expected: 04/23/2025, Expires: 07/22/2025 [facility] Work Phone: Comment on above: Expected: 04/23/2025, Expires: Start: 04-22-2025 End: 04-22-2025 Patient encounter procedure 04/22/2025 1:00 PM EDT Office Visit Orthopaedics [address] [facility] [place] [address] Rebecca Syed PA-C [address] [place] [address] Acute pain of right shoulder [M25.511] Orthopaedics Comment on above: Acute pain of right shoulder [M25.511] Start: 04-17-2025 End: 04-17-2025 Patient encounter procedure 04/17/2025 3:00 PM EDT Office Visit [facility] [address] [facility] [place] [address] Savita Griffith, SEAN.CAST SHELL GRINDER [address] [place] [address] Blood pressure check [facility] [place] Comment on above: Blood pressure check Start: 04-15-2025 End: 04-15-2025 Patient encounter procedure 04/15/2025 1:00 PM EDT Office Visit [facility] [place] [address] [facility] [place] [address] Savita Griffith, SEAN.CAST SHELL GRINDER [address] [place] [address] 6 month follow up [facility] [place] Comment on above: 6 month follow up Start: 04-14-2025 Hemoglobin A1c measurement HbA1C [facility] Start: 03-14-2025 End: 03-14-2025 Patient encounter procedure [facility] Comment on above: annual exam Start: 03-06-2025 Glaucoma screening Dilated Retinal Exam [facility] Start: 02-19-2025 End: 02-19-2025 Patient encounter procedure 02/19/2025 4:00 PM EDT Office Visit Family Medicine [facility] [address] [place] [address] Randy Zhang MD [address] [place] [address] Discharged 02/07/25 [facility] - Arm/chest pain [facility] [place] Comment on above: Discharged 02/07/25 [facility] - Arm/chest pain Start: 02-07-2025 Annual PCP Team Chronic Disease Visit Annual PCP Team Chronic Disease Visit [facility] Start: 02-07-2025 BP Controlled (<130/80) BP Controlled (<130/80) [facility] Start: 02-07-2025 Covid-19 Vaccine () Covid-19 Vaccine () [facility] Comment on above: Postponed from 05/13/2023 (Declined at t his time) Start: 02-07-2025 Hepatitis B Vaccine (1 of 3 - 19+ 3-dose series) Hepatitis B Vaccine (1 of 3 - 19+ 3-dose series) [facility] Comment on above: Postponed from 02/23/1996 (Declined at t his time) Start: 02-07-2025 Screening for malignant neoplasm of cervix [facility] Comment on above: Postponed from 11/22/2021 (Postponed - N ot Clinically Indicated) Start: 02-07-2025 Patient discharge [facility] Start: 02-07-2025 Care regimes management [facility] Start: 02-07-2025 Notification of physician [facility] Start: 02-07-2025 [facility] Start: 02-06-2025 Following clinical pathway protocol [facility] Start: 02-06-2025 Ambulation without limitation [facility] Start: 02-06-2025 Assessment of risk of venous thromboembolism [facility] Start: 02-06-2025 Insertion of catheter into peripheral vein [facility] Start: 02-06-2025 Measuring intake and output [facility] Start: 02-06-2025 Providing care according to standard [facility] Start: 02-06-2025 [facility] Start: 02-06-2025 Verification routine [facility] Start: 02-06-2025 Admission procedure [facility] Start: 02-06-2025 Hospital admission, emergency, from emergency room, medical nature [facility] Start: 02-06-2025 [facility] Start: 02-06-2025 End: 02-06-2025 Patient encounter procedure 02/06/2025 2:00 PM EDT Office Visit [facility] [place] [address] [place] [address] Randy Zhang MD [address] [place] [address] Arm pain is much more persistent [facility] Comment on above: Arm pain is much more persistent Start: 02-06-2025 Patient referral to dietitian [facility] Start: 01-29-2025 End: 04-30-2025 Potassium [Moles/volume] in Serum or Plasma POTASSIUM Lab Routine Hypokalemia Expected: 01/29/2025, Expires: 04/30/2025 [facility] Work Phone: Comment on above: Expected: 01/29/2025, Expires: Start: 01-28-2025 End: 04-29-2025 Potassium [Moles/volume] in Serum or Plasma [facility] Work Phone: Comment on above: Expected: 01/28/2025, Expires: Start: 01-19-2025 Screening for malignant neoplasm of breast Mammogram Screening [facility] Start: 01-05-2025 [facility] Start: 12-26-2024 End: 12-26-2024 ambulatory 12/26/2024 1:30 PM EDT Visit (SP) Office Hematology/Oncology [address] [place] [address] Kaitlin Manuel APRN.CAST SHELL GRINDER [address] [place] [address] 6 MTH OV* Hematology/Oncology Comment on above: 6 MTH OV* Start: 12-15-2024 DIABETES SCREEN DIABETES SCREEN [facility] Start: 12-13-2024 Hemoglobin A1c measurement HbA1C [facility] Start: 10-22-2024 End: 10-22-2024 Nursing evaluation of patient and report 10/22/2024 1:15 PM EST Nurse Visit [facility] [place] [address] [place] [address] Nurse [place] [address] [place] [address] CGM education/instruction [facility] [place] Comment on above: CGM education/instruction Start: 10-16-2024 End: 01-15-2025 Basic metabolic 2000 panel - Serum or Plasma BASIC METABOLIC PANEL Lab Routine Hypokalemia Expected: 10/16/2024, Expires: 01/15/2025 [facility] Work Phone: Comment on above: Expected: 10/16/2024, Expires: Start: 10-15-2024 End: 01-14-2025 Comprehensive metabolic 2000 panel - Serum or Plasma [facility] Work Phone: Comment on above: Expected: 10/15/2024, Expires: Start: 10-15-2024 End: 01-14-2025 Hemoglobin A1c in Blood [facility] Comment on above: Expected: 10/15/2024, Expires: Start: 10-15-2024 End: 01-14-2025 LIPID PANEL, NONFASTING [facility] Comment on above: Expected: 10/15/2024, Expires: Start: 10-12-2024 Annual PCP Team Chronic Disease Visit Annual PCP Team Chronic Disease Visit [facility] Start: 09-21-2024 End: 09-21-2024 Patient encounter procedure 09/21/2024 11:40 AM EST Office Visit [facility] [address] [place] [address] Savita Griffith APRN.CAST SHELL GRINDER [address] [place] [address] 1 month follow up [facility] [place] Comment on above: 1 month follow up Start: 09-14-2024 End: 09-14-2024 Patient encounter procedure 09/14/2024 10:30 AM EST Office Visit Plastic Surgery [address] [place] [address] Arleth Alva APRN.CAST SHELL GRINDER [address] [address] follow up Plastic Surgery Comment on above: follow up Start: 09-05-2024 Subsequent hospital visit by physician 09/05/2024 Hospital Encounter [facility] [address] [address] Linda Dugan MD [address] [place], [place] [id number] HX: breast cancer [Z85.3] Surgery Center Comment on above: HX: breast cancer [Z85.3] Start: 08-22-2024 LIPID SCREEN LIPID SCREEN [facility] Start: 08-17-2024 End: 08-17-2024 Patient encounter procedure 08/17/2024 1:40 PM EST Office Visit [facility] [address] [place] [address] Savita Griffith, APPLIQUER ZIGZAG.CAST SHELL GRINDER [address] [place], [place] [id number] 1 month follow up [facility] Comment on above: 1 month follow up Start: 08-16-2024 End: 08-16-2024 Patient encounter procedure 08/16/2024 11:00 AM EST Office Visit Plastic Surgery [address] [address] Linda Dugan MD [address] [place] [address] 1 mo post op Plastic Surgery Comment on above: 1 mo post op Start: 08-14-2024 End: 08-14-2024 Patient encounter procedure 08/14/2024 8:00 AM EST Office Visit [facility] [place] [address] [place], [place] [address] Savita Griffith, APPLIQUER ZIGZAG.CAST SHELL GRINDER [address] [place] [address] 1 month follow up Family [facility] [place] Comment on above: 1 month follow up Start: 08-10-2024 Diabetic foot examination Diabetic Foot Exam [facility] Comment on above: Postponed from 06/14/2023 (Declined at t his time) Start: 08-10-2024 Glaucoma screening Dilated Retinal Exam [facility] Comment on above: Postponed from 05/11/2023 (Currently Gary eduled) Start: 08-10-2024 Hemoglobin A1c measurement HbA1C [facility] Start: 08-10-2024 Screening for malignant neoplasm of cervix HPV Testing [facility] Comment on above: Postponed from 11/22/2021 (Currently Gary eduled) Start: 08-01-2024 Annual PCP Team Chronic Disease Visit Annual PCP Team Chronic Disease Visit [facility] Start: 08-01-2024 Hepatitis B screening Urine Albumin:Creatinine Ratio [facility] Start: 08-01-2024 Hepatitis B surface antibody level LDL Cholesterol [facility] Start: 07-26-2024 End: 07-26-2024 Admission to same day surgery center 07/26/2024 2:[address] [facility] Plastic Surgery [address] [address] Arleth Alva APRN.CAST SHELL GRINDER [address] [place] [id number] post op Plastic Surgery Comment on above: post op Start: 07-24-2024 End: 07-24-2024 Patient encounter procedure 07/24/2024 1:40 PM EST Office Visit Family [facility] [place] [address] [place] [address] Savita Griffith, APPLIQUER ZIGZAG.CAST SHELL GRINDER [address] [place] [address] 6 week follow up Family [facility] [place] Comment on above: 6 week follow up Start: 07-19-2024 End: 07-19-2024 Patient encounter procedure 07/19/2024 11:30 AM EST Office Visit Plastic Surgery [address] [address] Arleth Alva APRN.CAST SHELL GRINDER [address] [place] [address] Post op Plastic Surgery Comment on above: Post op Start: 07-09-2024 End: 07-09-2024 Admission to same day surgery center 07/09/2024 10:35 AM EDT - 07/09/2024 3:45 PM EDT Surgery Ambulatory Surgery [address] [place] [address] Linda Dugan MD [address] [place] [address] REDUCTION BREAST BILATERAL Ambulatory Surgery Comment on above: REDUCTION BREAST BILATERAL Start: 07-09-2024 End: 07-09-2024 Reduction mammaplasty REDUCTION BREAST BILATERAL HX: breast cancer S/P breast reconstruction Breast asymmetry following reconstructive surgery 07/09/2024 10:35 AM EDT [facility] Start: 07-09-2024 Subsequent hospital visit by physician 07/09/2024 10:35 AM EDT Hospital Encounter Ambulatory Surgery [address] [place] [address] Linda Dugan MD [address] [place] [address] HX: breast cancer [Z85.3] Ambulatory Surgery Comment on above: HX: breast cancer [Z85.3] Start: 07-09-2024 End: 07-09-2024 Admission to same day surgery center 07/09/2024 7:30 AM EDT - 07/09/2024 12:40 PM EDT Surgery Ambulatory Surgery [address] [place] [address] Linda Dugan MD [address] [place] [address] REDUCTION BREAST BILATERAL Ambulatory Surgery Comment on above: REDUCTION BREAST BILATERAL Start: 07-09-2024 End: 07-09-2024 Reduction mammaplasty REDUCTION BREAST BILATERAL HX: breast cancer S/P breast reconstruction Breast asymmetry following reconstructive surgery 07/09/2024 7:30 AM EDT [facility] Start: 07-09-2024 Subsequent hospital visit by physician 07/09/2024 7:30 AM EDT Hospital Encounter Ambulatory Surgery [address] [place] [address] Linda Dugan MD [address] [place] [address] HX: breast cancer [Z85.3], S/P breast reconstruction [Z98.890], Breast asymmetry following reconstructive surgery [N65.1] Ambulatory Surgery Comment on above: HX: breast cancer [Z85.3], S/P breast re construction [Z98.890], Breast asymmetry following reconstructive surgery [N65.1] Start: 07-04-2024 End: 07-04-2024 ambulatory 07/04/2024 11:30 AM EDT Visit (SP) Office Hematology/Oncology [address] [place], [place] [id number] Conrado Pool DO [address] [place], [place] [id number] OV/LABS 07/03* Hematology/Oncology Comment on above: OV/LABS 07/03* Start: 07-03-2024 End: 07-03-2024 ambulatory 07/03/2024 4:00 PM EDT Results Only [facility] [address] [place] [id number] lab [facility] Comment on above: lab Start: 06-29-2024 End: 09-28-2024 Coagulation factor VIII activity actual/normal in Platelet poor plasma by Coagulation assay FACTOR VIII:C ASSAY Lab Routine Personal history of pulmonary embolism Expected: 06/29/2024, Expires: 09/28/2024 [facility] Comment on above: Expected: 06/29/2024, Expires: Start: 06-29-2024 End: 09-28-[address] LUPUS ANTICOAG PL Lab Routine Personal history of pulmonary embolism Expected: 06/29/2024, Expires: 09/28/2024 [facility] Work Phone: Comment on above: Expected: 06/29/2024, Expires: Start: 06-29-2024 End: 06-29-2024 Patient encounter procedure 06/29/2024 2:00 PM EDT Office Visit [facility] [id number] [place] [id number] Jade Mosqueda APRN.CAST SHELL GRINDER [address] [place] [address] NO IMAGING; Annual breast exam; MS 07/14/21; ERNESTO 01/20/24; breast reduction scheduled for 07/09/24 [facility] Comment on above: NO IMAGING; Annual breast exam; MS ; ERNESTO 01/20/24; breast reduction scheduled for 07/09/24 Start: 06-27-2024 BP Controlled (<130/80) BP Controlled (<130/80) [facility] Start: 06-27-2024 End: 06-27-2024 ambulatory 06/27/2024 1:00 PM EDT Visit (SP) Office Hematology/Oncology [address] [place], [place] [id number] Kaitlin Manuel, SEAN.CAST SHELL GRINDER [address] [place] [address] 6 MTH OV* Hematology/Oncology Comment on above: 6 MTH OV* Start: 06-14-2024 End: 06-14-2024 Patient encounter procedure 06/14/2024 1:45 PM EDT Office Visit Plastic Surgery [address] [address] Linda Dugan MD [address] [place], [place] [id number] Pre op Plastic Surgery Comment on above: Pre op Start: 06-14-2024 End: 06-14-2024 Anesthesia consultation 06/14/2024 11:20 AM EDT PAT Pre Anesthesia [address] [address], [address] [place] [address] P[facility] Pre Anesthesia Comment on above: PACC Start: 06-14-2024 End: 06-14-2024 Patient encounter procedure 06/14/2024 9:30 AM EDT Office Visit Plastic Surgery [address] [address] Linda Dugan MD [address] [place] [address] Pre op Plastic Surgery Comment on above: Pre op Start: 06-13-2024 End: 06-13-2024 Patient encounter procedure 06/13/2024 11:40 AM EDT Office Visit [facility] [place] [address] [place], [place] [phone] Savita Griffith APRN.CAST SHELL GRINDER [address] [place], [place] [phone] Perimenopausal meds. Anxiety and depression [facility] [place] Comment on above: Perimenopausal meds. Anxiety and depress ion Start: 05-13-2024 Covid-19 Vaccine ( season) Covid-19 Vaccine ( season) [facility] Start: 05-13-2024 Covid-19 Vaccine ( season) Covid-19 Vaccine ( season) [facility] Start: 05-13-2024 Influenza vaccination Influenza Vaccine (#1) [facility] Start: 03-18-2024 Subsequent hospital visit by physician 03/18/2024 Hospital Encounter Surgery Center [address] [address] Linda Dugan MD [address] [place] [address] HX: breast cancer [Z85.3] Surgery Center Comment on above: HX: breast cancer [Z85.3] Start: 02-19-2024 BP CONTROLLED (<130/80) BP CONTROLLED (<130/80) [facility] Start: 02-08-2024 End: 05-09-2024 Comprehensive metabolic 2000 panel - Serum or Plasma [facility] Comment on above: Expected: 02/08/2024, Expires: Start: 02-08-2024 End: 05-09-2024 Hemoglobin A1c in Blood [facility] Work Phone: Comment on above: Expected: 02/08/2024, Expires: Start: 02-08-2024 End: 02-08-2024 Patient encounter procedure Plastic Surg [facility] Comment on above: 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/ Dx: Malignant neoplasm of upper-oute r quadrant of left breast in female, estrogen receptor positive (HCC) [C50.412, Z17.0]/ REFERRING: KAITLIN MANUEL 1 month follow up Start: 01-30-2024 Hemoglobin A1c measurement [facility]C [facility] Start: 01-30-2024 Hemoglobin A1c/Hemoglobin.total in Blood HbA1C [facility] Start: 01-20-2024 End: 01-20-2024 Patient encounter procedure 01/20/2024 12:30 PM EDT Appointment Mammogram [address] [place] [address] Mammogram Start: 01-16-2024 ANNUAL PCP TEAM CHRONIC DISEASE VISIT ANNUAL PCP TEAM CHRONIC DISEASE VISIT [facility] Start: 01-16-2024 COVID-19 VACCINE (#1) COVID-19 VACCINE (#1) [facility] Comment on above: Postponed from 1977 (Declined at t his time) Start: 01-16-2024 HEPATITIS B (1 of 3 - 3-dose series) HEPATITIS B (1 of 3 - 3-dose series) [facility] Comment on above: Postponed from 1977 (Declined at t his time) Start: 01-16-2024 Hepatitis B Vaccine (1 of 3 - 19+ 3-dose series) Hepatitis B Vaccine (1 of 3 - 19+ 3-dose series) [facility] Comment on above: Postponed from 02/23/1996 (Declined at t his time) Start: 01-16-2024 Hepatitis B Vaccine (1 of 3 - 3-dose series) Hepatitis B Vaccine (1 of 3 - 3-dose series) [facility] Comment on above: Postponed from 1977 (Declined at t his time) Start: 01-16-2024 PNEUMOCOCCAL (2 - PCV) PNEUMOCOCCAL (2 - PCV) [facility] Comment on above: Postponed from 10/24/2021 (Declined at t his time) Start: 01-16-2024 [facility]neum[facility] Comment on above: Postponed from 10/24/2021 (Declined at t his time) Start: 10-27-2023 Mammography [facility] Start: 10-27-2023 Screening for malignant neoplasm of breast Mammogram Screening [facility] Start: 08-11-2023 ANNUAL PCP TEAM CHRONIC DISEASE VISIT ANNUAL PCP TEAM CHRONIC DISEASE VISIT [facility] Start: 08-01-2023 End: 10-31-2023 25-hydroxyvitamin D3 [Mass/volume] in Serum or Plasma [facility] Work Phone: Comment on above: Expected: 08/01/2023, Expires: 4 Start: 08-01-2023 End: 10-31-2023 Comprehensive metabolic 2000 panel - Serum or Plasma [facility] Work Phone: Comment on above: Expected: 08/01/2023, Expires: 4 Start: 08-01-2023 End: 10-31-2023 LIPID PANEL, NONFASTING [facility] Work Phone: Comment on above: Expected: 08/01/2023, Expires: 4 Start: 07-19-2023 Hepatitis B screening URINE ALBUMIN:CREATININE RATIO [facility] Start: 07-18-2023 Hemoglobin A1c/Hemoglobin.total in Blood HBA1C [facility] Start: 06-25-2023 BP CONTROLLED (<130/80) BP CONTROLLED (<130/80) [facility] Start: 06-14-2023 3 comp foot exam completed DIABETIC FOOT EXAM [facility] Start: 06-14-2023 ANNUAL PCP TEAM CHRONIC DISEASE VISIT ANNUAL PCP TEAM CHRONIC DISEASE VISIT [facility] Start: 06-14-2023 Diabetic foot examination Diabetic Foot Exam [facility] Start: 05-24-2023 Dehydroepiandrosterone sulfate (DHEA-S) [Mass/volume] in Serum or Plasma [facility] Start: 05-24-2023 Testosterone Free [Mass/volume] in Serum or Plasma [facility] Start: 05-13-2023 Covid-19 Vaccine () Covid-19 Vaccine () [facility] Start: 05-13-2023 Influenza vaccination [facility] Start: 05-12-2023 BP CONTROLLED (<130/80) BP CONTROLLED (<130/80) [facility] Start: 05-11-2023 Glaucoma screening Dilated Retinal Exam [facility] Start: 05-11-2023 Hepatitis C antibody, confirmatory test DILATED RETINAL EXAM [facility] Start: 05-04-2023 ANNUAL PCP TEAM CHRONIC DISEASE VISIT ANNUAL PCP TEAM CHRONIC DISEASE VISIT [facility] Start: 04-23-2023 Hepatitis B surface antibody level LDL CHOLESTEROL [facility] Start: 02-08-2023 Hemoglobin A1c/Hemoglobin.total in Blood HBA1C [facility] Start: 12-13-2022 End: 02-12-2023 Hemoglobin A1c in Blood HGB A1C Lab Routine Type 2 diabetes mellitus with hyperglycemia, without long-term current use of insulin ([facility]) Expected: 12/13/2022, Expires: 02/12/2023 [facility] Work Phone: Comment on above: Expected: 12/13/2022, Expires: 3 Start: 12-10-2022 ANNUAL PCP TEAM CHRONIC DISEASE VISIT ANNUAL PCP TEAM CHRONIC DISEASE VISIT [facility] Start: 10-21-2022 ANNUAL PCP TEAM CHRONIC DISEASE VISIT ANNUAL PCP TEAM CHRONIC DISEASE VISIT [facility] Start: 07-24-2022 Hemoglobin A1c/Hemoglobin.total in Blood HBA1C [facility] Start: 06-14-2022 End: 08-14-2022 ALBUMIN/CREAT RATIO RND UR ALBUMIN/CREAT RATIO RND UR Lab Routine Type 2 diabetes mellitus with hyperglycemia, without long-term current use of insulin (HCC) Expected: 06/14/2022, Expires: 08/14/2022 [facility] Work Phone: Comment on above: Expected: 06/14/2022, Expires: 2 Start: 06-14-2022 End: 08-14-2022 HIV 1+2 Ab [Presence] in Serum or Plasma by Immunoassay HIV 1 2 COMBO(AG/AB),WITH REFLEX TO DIFFERENTIATION Lab Routine Screening for HIV (human immunodeficiency virus) Expected: 06/14/2022, Expires: 08/14/2022 [facility] Work Phone: Comment on above: Expected: 06/14/2022, Expires: 2 Start: 06-07-2022 Adult depression screening assessment DEPRESSION SCREENING [facility] Start: 05-13-2022 Influenza vaccination [facility] Start: 2022 COLOGUARD (FIT-DNA) COLOGUARD (FIT-DNA) [facility] Start: 2022 Colonoscopy COLONOSCOPY [facility] Start: 2022 COLORECTAL CANCER SCREENING COLORECTAL CANCER SCREENING [facility] Start: [address] COLONOGRAPHY [facility] Start: 2022 FECAL OCCULT BLOOD FECAL OCCULT BLOOD [facility] Start: 2022 Screening for malignant neoplasm of colon [facility] Start: 2022 SIGMOIDOSCOPY SIGMOIDOSCOPY [facility] Start: 12-30-2021 End: 03-01-2022 Acute hepatitis 2000 panel - Serum HEP ACUTE PANEL BL Lab Routine Elevated liver enzymes Expected: 12/30/2021, Expires: 03/01/2022 [facility] Work Phone: Comment on above: Expected: 12/30/2021, Expires: 2 Start: 12-30-2021 End: 03-01-2022 Hemoglobin A1c/Hemoglobin.total in Blood HGB A1C Lab Routine Hyperglycemia Expected: 12/30/2021, Expires: 03/01/2022 [facility] Work Phone: Comment on above: Expected: 12/30/2021, Expires: 2 Start: 12-30-2021 End: 03-01-2022 HEPATIC FUNCTION PNL HEPATIC FUNCTION PNL Lab Routine Elevated liver enzymes Expected: 12/30/2021, Expires: 03/01/2022 [facility] Work Phone: Comment on above: Expected: 12/30/2021, Expires: 2 Start: 12-30-2021 End: 03-01-2022 LIPID PANEL BASIC LIPID PANEL BASIC Lab Routine Hyperglycemia Expected: 12/30/2021, Expires: 03/01/2022 [facility] Work Phone: Comment on above: Expected: 12/30/2021, Expires: 2 Start: 11-22-2021 HPV TESTING HPV TESTING [facility] Start: 11-22-2021 PAP TESTING PAP TESTING [facility] Start: 11-22-2021 Screening for malignant neoplasm of cervix [facility] Start: 10-24-2021 PNEUMOCOCCAL (2 - PCV) PNEUMOCOCCAL (2 - PCV) [facility] Start: 10-24-2021 Pneumococcal vaccination Pneumococcal Vaccine (2 of 2 - PCV) [facility] Start: 06-06-2021 Mammography MAMMOGRAM [facility] Start: 05-13-2021 Influenza vaccination INFLUENZA (#1) [facility] Start: 02-23-1996 Hepatitis B Vaccine (1 of 3 - 19+ 3-dose series) Hepatitis B Vaccine (1 of 3 - 19+ 3-dose series) [facility] Start: 1995 BP CONTROLLED (<130/80) BP CONTROLLED (<130/80) [facility] Start: 1995 HIV SCREENING HIV SCREENING [facility] Start: 1989 COVID-19 VACCINE (1) COVID-19 VACCINE (1) [facility] Start: 1987 3 comp foot exam completed DIABETIC FOOT EXAM [facility] Start: 1987 Hepatitis B screening URINE ALBUMIN:CREATININE RATIO [facility] Start: 1982 COVID-19 VACCINE (#1) COVID-19 VACCINE (#1) [facility] Start: 1982 COVID-19 VACCINE (1) COVID-19 VACCINE (1) [facility] Start: 1977 COVID-19 VACCINE (#1) COVID-19 VACCINE (#1) [facility] Start: 1977 HEPATITIS B (1 of 3 - 3-dose series) HEPATITIS B (1 of 3 - 3-dose series) [facility] COVID & INFLUENZA A/ B & RSV PCR, ROUTINE COVID & INFLUENZA A/B & RSV PCR, ROUTINE Microbiology Routine URI, acute 10/31/2024 3:03 PM EST [facility] Work Phone: End: 02-08-2025 DBT Breast - bilateral screening DIANE SCREENING W ERNESTO Radiology Routine 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eft breast in female, estrogen receptor positive (HCC) Encounter for screening mammogram for high-risk patient 1 Occurrences starting 01/10/2024 until 02/08/2025 [facility] Work Phone: Comment on above: 1 Occurrences starting 01/10/2024 until 02/08/2025 DBT Breast - bilater al screening DIANE SCREENING W ERNESTO Radiology Routine 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eft breast in female, estrogen receptor positive (HCC) Encounter for screening mammogram for high-risk patient 01/20/2024 12:52 PM EDT [facility] Work Phone: DBT Breast - bilater al screening DIANE SCREENING W ERNESTO Radiology Routine 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eft breast in female, estrogen receptor positive (HCC) 04/19/2025 2:02 PM EDT [facility] Work Phone: ECG COMPLETE ECG COMPLETE ECG Routine Pre-op evaluation 06/14/2024 12:11 PM EDT [facility] Work Phone: Hemoglobin A1c/Hemoglobin.total in Blood HEMOGLOBIN A1C (POC) Lab Routine Ordered: 08/11/2022 [facility] Work Phone: Comment on above: Ordered: 08/11/2022 End: 05-22-2026 HOME SLEEP APNEA TEST (HSAT) HOME SLEEP APNEA TEST (HSAT) Procedures Routine Fatigue, unspecified type 1 Occurrences starting 05/22/2025 until 05/22/2026 [facility] Work Phone: Comment on above: 1 Occurrences starting 05/22/2025 until 05/22/2026 End: 08-20-2023 DIANE SCREENING W ERNESTO DIANE SCREENING W ERNESTO Radiology Routine Encounter for screening mammogram for breast cancer 1 Occurrences starting 07/21/2022 until 08/20/2023 [facility] Work Phone: Comment on above: 1 Occurrences starting 07/21/2022 until 08/20/2023 Patient Education ED Tendonitis ED Shoulder Pain, Uncertain Cause [facility] Work Phone: Patient referral [facility] Work Phone: Reduction mammaplasty REDUCTION BREAST BILATERAL HX: breast cancer S/P breast reconstruction Breast asymmetry following reconstructive surgery [facility] Reduction mammaplasty REDUCTION BREAST BILATERAL HX: breast cancer S/P breast reconstruction Breast asymmetry following reconstructive surgery PLASTICS A60 US Pelvis [facility] Pelvis transvaginal [facility] End: 05-03-2026 XR Shoulder - right 3 Views XR SHOULDER GENERAL 3V OR MORE AP/TRUE AP/OTHER RIGHT Radiology Routine Right shoulder pain, unspecified chronicity 1 Occurrences starting 04/03/2025 until 05/03/2026 [facility] Work Phone: Comment on above: 1 Occurrences starting 04/03/2025 until 05/03/2026 [facility] Immunizations Immunization Date Immunization Notes Care Provider [facility] 02-08-2024 pneumococcal conjuga te (PCV20) vaccine, 20 valent (PREVNAR 20) Savita Griffith APPLIQUER ZIGZAG.CAST SHELL GRINDER Work Phone: [facility] 02-08-2024 pneumococcal Conjuga te, unspecified formulation Savita Griffith APPLIQUER ZIGZAG.CAST SHELL GRINDER Work Phone: [facility] 08-01-2023 influenza, injectabl e, quadrivalent, contains preservative Savita Griffith APPLIQUER ZIGZAG.CAST SHELL GRINDER Work Phone: [facility] 08-01-2023 influenza virus vacc ine, unspecified formulation Randy Zhang MD Work Phone: [facility] 06-14-2022 influenza, injectabl e, quadrivalent, contains preservative Randy Zhang MD Work Phone: [facility] 06-14-2022 influenza virus vacc ine, unspecified formulation Randy Zhang MD Work Phone: [facility] 10-24-2020 pneumococcal polysaccharide vaccine, 23 valent [employer] Work Phone: [facility] 09-24-2019 influenza, injectabl e, quadrivalent, contains preservative [employer] Work Phone: [facility] 06-12-2018 influenza, injectabl e, quadrivalent, preservative free [employer] Work Phone: [facility] 08-01-2017 influenza, injectabl e, quadrivalent, contains preservative [employer] Work Phone: [facility] 01-28-2017 measles, mumps and rubella virus vaccine [employer] Work Phone: [facility] 01-28-2017 tetanus toxoid, redu arnoldo diphtheria toxoid, and acellular pertussis vaccine, adsorbed [employer] Work Phone: [facility] 01-28-2017 tuberculin skin test ; purified protein derivative solution, intradermal Savita Griffith APRN.CAST SHELL GRINDER Work Phone: [facility] 07-02-2016 influenza, injectabl e, quadrivalent, contains preservative [employer] Work Phone: [facility] 06-09-2015 influenza, injectabl e, quadrivalent, contains preservative [employer] Work Phone: [facility] 10-09-2014 pneumococcal polysaccharide vaccine, 23 valent [employer] Work Phone: [facility] 06-08-2014 influenza, seasonal, injectable [employer] Work Phone: [facility] 06-27-2013 influenza virus vacc ine, unspecified formulation [employer] Work Phone: [facility] Payers Date Payer Category Payer Self-pay [id number] 2023 Unknown [id number] 2016 Unknown [id number] 2016 Medicaid [facility] MED[facility] [id number] 2016-Present [phone] [address] [place] [address] Medicaid [id number] 2016 Medicaid [id number] 1977 Unknown [id number] 1977 Unknown [id number] [id number] Unknown [id number] Unknown [id number] Unknown [id number] [id number] Unknown [id number] [id number] Unknown [id number] [id number] Unknown [id number] [id number] Unknown [id number] [id number] Unknown [id number] [id number] Unknown [id number] [id number] Unknown [id number] [id number] Unknown [id number] [id number] Unknown [id number] [id number] Unknown [id number] [id number] Unknown [id number] Unknown [id number] [id number] Unknown [id number] [id number] Unknown [id number] Social History Date Type Detail Facility Start: 11-10-2012 End: 05-04-2022 Tobacco smoking status NMIS Never smoked tobacco [facility] Start: 11-10-2012 End: 05-04-2022 Tobacco use and exposure Smokeless tobacco non-user [facility] Start: 10-21-2021 End: 05-22-2025 Alcohol intake Current drinker of alcohol (finding) [facility] Start: 08-01-2020 End: 05-04-2022 History SDOH Alcohol Frequency 2 [facility] Start: 08-01-2020 End: 05-04-2022 History SDOH Alcohol Std Drinks 1 [facility] Start: 06-12-2019 History SDOH Alcohol Comment Seldom. a couple times a year [facility] Start: 11-20-2019 End: 05-04-2022 History SDOH Social Connections [facility] 3 [facility] Start: 11-20-2019 History SDOH Physica l Activity MPS 6 [facility] Start: 11-20-2019 History SDOH Stress 5 [facility] Start: 11-20-2019 Education 14 [facility] Start: 1975 Sex Assigned At Female [facility] Start: 06-07-2021 End: 06-14-2022 Exposure to SARS-CoV-2 (event) Not sure [facility] Start: 04-08-2022 End: 05-24-2023 Tobacco smoking status NHIS Unknown if ever smoked [facility] Start: 02-17-2014 [facility] Start: 02-17-2014 Non-smoker [facility] Start: 05-04-2022 History SDOH Social Connections Phone 4 [facility] Start: 05-04-2022 History SDOH Social Connections [employer] 98 [facility] Start: 05-04-2022 End: 01-15-2023 History of Social function [facility] Start: 05-04-2022 End: 01-15-2023 Social connection and isolation panel [facility] Start: 08-13-2012 How often do you att end orthodox or latter-day services? Patient refused [facility] Do you belong to any clubs or organizations such as orthodox groups, unions, fraternal or athletic groups, or school groups? No [facility] Are you now , , , , never or living with a partner? [facility] How often to you hav e a drink containing alcohol? Monthly or less [facility] How many standard drinks containing alcohol do you have on a typical day? 1 or 2 [facility] How often do you hav e 6 or more drinks on 1 occasion? Never [facility] How hard is it for y ou to pay for the very basics like food, housing, medical care, and heating Somewhat hard [facility] Do you feel stress - tense, restless, nervous, or anxious, or unable to sleep at night because your mind is troubled all the time - these days [OSQ] Rather much [facility] (I/We) worried wheth er (my/our) food would run out before (I/we) got money to buy more. Sometimes true [facility] Start: 03-07-2019 Gender identity Identifies as female gender (finding) [facility] Start: 03-07-2019 Sexual orientation Heterosexual (melissa martinez) [facility] How hard is it for y ou to pay for the very basics like food, housing, medical care, and heating Very hard [facility] Do you feel stress - tense, restless, nervous, or anxious, or unable to sleep at night because your mind is troubled all the time - these days [OSQ] Very much [facility] In the past 12 month s, was there a time when you were not able to pay the mortgage or rent on time? Yes [facility] How often do you hav e 6 or more drinks on 1 occasion? Less than monthly [facility] How hard is it for y ou to pay for the very basics like food, housing, medical care, and heating Not very hard [facility] Do you feel stress - tense, restless, nervous, or anxious, or unable to sleep at night because your mind is troubled all the time - these days [OSQ] Only a little [facility] (I/We) worried wheth er (my/our) food would run out before (I/we) got money to buy more. Never true [facility] Start: 01-05-2025 Sex Female (finding) [facility] NEGATED: Highlighted row Not [facility] Medical Equipment Procedure Code Equipment Code Equipment Original Text Equipment Identifier Dates Port Implinfn Pwrprt Plas 8fr - [id number] Start: 12-14-2012 Comment on above: Description: PowerPo rt [id number], [id number], [id number], [id number], [id number], [id number], [id number], [id number] Start: 05-04-2022 End: 07-05-2024 Comment on above: Test blood sugar(s) 1 times daily. Dx: Type 2 DM - Uncontrolled E11.65 Insulin: No Goals Date Patient Goal Desired Activity /State Functional Status Date Assessment Result Facility 02-07-2025 Functional status Up ad kelsie [facility] Work Phone: 04-15-2015 Are you deaf, or do you have serious difficulty hearing No 04/15/2015 10:53 AM Janice Quinones LPN No [facility] 04-15-2015 Are you blind, or do you have serious difficulty seeing, even when wearing glasses No 04/15/2015 10:53 AM Janice Quinones LPN No [facility] 04-15-2015 Do you have serious difficulty walking or climbing stairs No 04/15/2015 10:53 AM Janice Quinones LPN No [facility] 04-15-2015 Do you have difficul ty dressing or bathing No 04/15/2015 10:53 AM Janice Quinones LPN No [facility] 04-15-2015 Because of a physica l, mental, or emotional condition, do you have difficulty doing errands alone such as visiting a physician's office or shopping No 04/15/2015 10:53 AM EDT Janice Mayfield LPN No [facility] Mental Status Date Assessment Result Facility 02-07-2025 Cognitive function Voice/Name [facility] Work Phone: 04-15-2015 Because of a physica l, mental, or emotional condition, do you have serious difficulty concentrating, remembering, or making decisions No 04/15/2015 10:53 AM EDT Janice Mayfield LPN No [facility] Clinical Notes 12-19-2017 to 07-04-2025 Savita Griffith APRN.CAST SHELL GRINDER - 05/23/2025 10:10 AM EDTPatient InstructionsTelephone Encounter - Charly Pyle LPN - 05/17/2025 1:54 PM Eden Swenson RT(Roberta) - 04/19/2025 1:30 PM EDT Note Date & Type Note Facility 07-04-2025 Note HNO ID: [id number] Author: SAVITA GRIFFITH APRN.CAST [employer] GRINDER Service: ? Author Type: Nurse Practitioner Type: Progress Notes Filed: 07/04/2025 10:34 Note Text: This is a 50 year old female who presents today with: The patient is a 50-year-old female presenting for evaluation of an erythematous, pruritic rash on the left medial upper arm with associated fever, headache, and nausea following an insect bite. HISTORY OF PRESENT ILLNESS: Silvia is a 50-year-old female presenting with a suspected insect bite on the left upper arm, accompanied by systemic symptoms. Suspected Insect Bite: - Noticed a bite on the left upper arm, medial aspect, just above the antecubital fossa, on Tuesday. - [place] something bite while outside near the garage; did not see the insect. - Applied Cortizone-10 and triple antibiotic ointment with no improvement. - developed a rash superiorly and inferiorly to bite. - No other rashes noted. - advised calling the doctor due to lack of improvement. Systemic Symptoms: - Developed fever, severe headache, and nausea on Tuesday; remained in bed all day. - Symptoms improved on Tuesday, but still experiencing a headache. - Denies similar reactions to previous insect bites. 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 desvenlafaxine ER (PRISTIQ) 25 mg 24 hr tablet Take 1 tablet by mouth once daily. Take with fluoxetine 10 mg daily X 2 weeks. FLUoxetine (PROZAC) 10 mg capsule Take 1 capsule by mouth once daily. Take daily with the desvenlafaxine 25 mg X 2 week, then stop the desvenlafaxine and increase the fluoxetine to 20 mg daily. FLUoxetine (PROZAC) 20 mg capsule Take 1 capsule by mouth once daily. X 2 weeks. Then increase to two pills by mouth daily. omeprazole (PRILOSEC) 20 mg capsule Take 1 capsule by mouth two times a day. tiZANidine (ZANAFLEX) 4 mg tablet Take 1 tablet by mouth every 8 hours as needed (muscle spasms). dulaglutide (TRULICITY) 0.75 mg/0.5 mL pen injector Inject 0.75 mg subcutaneously one time a week. Inject dose once per week. Discard Pen After calcium-cholecalciferol, D3, (OSCAL+D 250) 250 mg-3.125 mcg (125 unit) per tablet Take 1 tablet by mouth two times a day. sucralfate (CARAFATE) 1 gram tablet Take 1 tablet by mouth two times a day. buPROPion SR (WELLBUTRIN SR) 200 mg 12 hr tablet Take 1 tablet by mouth once daily. metFORMIN ER (GLUCOPHAGE XR) 500 mg 24 hr tablet Take 2 tablets by mouth daily with breakfast. hydroCHLOROthiazide 25 mg tablet Take 1 tablet by mouth once daily. losartan (COZAAR) 100 mg tablet Take 1 tablet by mouth once daily. potassium chloride (K-TAB) 10 mEq tablet Take 1 tablet by mouth once daily. Blood-Glucose Sensor (FREESTYLE ALTHEA 3 SENSOR) roney 1 Each as directed. Ascorbate Calcium 500 mg tab Take by mouth. lancets (TRUEPLUS LANCETS) 30 gauge Use with blood glucose test once daily blood sugar diagnostic (TRUE METRIX GLUCOSE TEST STRIP) test strip Use with blood glucose test once daily Blood Pressure Monitor (BLOOD PRESSURE KIT) 1 Each as needed. acetaminophen (TYLENOL) 500 mg tablet Take 1,000 mg by mouth every 8 hours as needed. elderberry fruit (ELDERBERRY ORAL) Take 1,000 mg [...] FAMILY HISTORY Problem Relation Age of Onset Diabetes Father Heart Father 54 heart attack, CHF 2017 Hypertension Father A-Fib Stroke Fath (more content not included)... [facility] 06-24-2025 Note HNO ID: [id number] Author: SAVITA GRIFFITH APRN.CAST SHELL GRINDER Service: ? Author Type: Nurse Practitioner Type: Progress Notes Filed: 06/24/2025 16:53 Note Text: This is a 50 year old female who presents today with: The patient is a 50-year-old female with major depressive disorder, presenting for antidepressant medication management. HISTORY OF PRESENT ILLNESS: Silvia is a 50-year-old female with a history of depression, presenting for evaluation of worsening symptoms after switching from Effexor to Pristiq. Depression: - Recent switch from Effexor 150 mg to Pristiq; reports significant worsening of symptoms. - Describes current state as the "worst I've ever felt in my entire life." - Experiencing increased irritability and frequent crying episodes. - Notable incident of emotional breakdown in front yard. - Reports feeling apathetic; family members have expressed concern. - Current medications include Pristiq. - Previous medications include Zoloft, Cymbalta, Wellbutrin, citalopram, Prozac, and Lexapro. - Zoloft caused weight gain and sedation; Cymbalta was ineffective; Prozac was reportedly beneficial. - Appetite fluctuates between extreme hunger and lack of desire to eat. - Has a home sleep test scheduled. 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 Take with fluoxetine 10 mg daily X 2 weeks. FLUoxetine (PROZAC) 10 mg capsule Take 1 capsule by mouth once daily. Take daily with the desvenlafaxine 25 mg X 2 week, then stop the desvenlafaxine and increase the fluoxetine to 20 mg daily. FLUoxetine (PROZAC) 20 mg capsule Take 1 capsule by mouth once daily. X 2 weeks. Then increase to two pills by mouth daily. omeprazole (PRILOSEC) 20 mg capsule Take 1 capsule by mouth two times a day. tiZANidine (ZANAFLEX) 4 mg tablet Take 1 tablet by mouth every 8 hours as needed (muscle spasms). dulaglutide (TRULICITY) 0.75 mg/0.5 mL pen injector Inject 0.75 mg subcutaneously one time a week. Inject dose once per week. Discard Pen After calcium-cholecalciferol, D3, (OSCAL+D 250) 250 mg-3.125 mcg (125 unit) per tablet Take 1 tablet by mouth two times a day. sucralfate (CARAFATE) 1 gram tablet Take 1 tablet by mouth two times a day. buPROPion SR (WELLBUTRIN SR) 200 mg 12 hr tablet Take 1 tablet by mouth once daily. metFORMIN ER (GLUCOPHAGE XR) 500 mg 24 hr tablet Take 2 tablets by mouth daily with breakfast. hydroCHLOROthiazide 25 mg tablet Take 1 tablet by mouth once daily. losartan (COZAAR) 100 mg tablet Take 1 tablet by mouth once daily. potassium chloride (K-TAB) 10 mEq tablet Take 1 tablet by mouth once daily. Blood-Glucose Sensor (FREESTYLE ALTHEA 3 SENSOR) roney 1 Each as directed. Ascorbate Calcium 500 mg tab Take by mouth. lancets (TRUEPLUS LANCETS) 30 gauge Use with blood glucose test once daily blood sugar diagnostic (TRUE METRIX GLUCOSE TEST STRIP) test strip Use with blood glucose test once daily Blood Pressure Monitor (BLOOD PRESSURE KIT) 1 Each as needed. acetaminophen (TYLENOL) 500 mg tablet Take 1,000 mg by mouth every 8 hours as needed. elderberry fruit (ELDERBERRY ORAL) Take 1,000 mg [...] FAMILY HISTORY Problem Relation Age of Onset Diabetes Father Heart Father 54 heart attack, CHF 2017 Hypertension Father A-Fib Stroke Father 57 Obesity Father other (Congestive Heart Failure) Father Hyperte (more content not included)... [facility] 05-23-2025 Note HNO ID: [id number] Author: SAVITA GRIFFITH APRN.CAST SHELL GRINDER Service: ? Author Type: Nurse Practitioner Type: Progress Notes Filed: 05/23/2025 10:14 Note Text: This is a 50 year old female who presents today with: The patient is a 50-year-old female with depression, presenting for evaluation of two weeks of postprandial epigastric pain and bloating and management of worsening depressive symptoms. HISTORY OF PRESENT ILLNESS: Abdominal Pain: - Onset 2 weeks ago. - Pain occurs after eating, accompanied by bloating and cramping. - Silvia describes pain as similar to menstrual cramps. - Silvia avoids eating due to anticipated pain. - Silvia denies recent illness, heartburn, indigestion, diarrhea, constipation, hematochezia, or melena. - Last bowel movement at 0400 today. last colonoscopy in 2022 with a 10-year clearance. Last EGD 2022 -- recommended repeat in 3-5 years. - Taking Carafate and omeprazole BID. Depression: - Worsening mood over the past month. - Increased Wellbutrin to 200 mg daily during last visit. - Silvia reports fatigue, anhedonia, and cognitive difficulties. - Experiencing insomnia, sleeping 3-4 hours per night. - Taking venlafaxine, started last year. - Silvia denies history of sleep apnea; reports snoring. - Irregular menstrual cycles; last period in April, previous in November. Underwent endometrial ablation. 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 For 7 days (with desvenlafaine 25mg.) then stop. desvenlafaxine ER (PRISTIQ) 25 mg 24 hr tablet Take 1 tablet by mouth once daily. Take with venlafaxine 75 mg daily X 1 week, then stop the venlafaxine and increase the desvenlafaxine to 50 mg daily. desvenlafaxine ER (PRISTIQ) 50 mg 24 hr tablet Take 1 tablet by mouth once daily. Start after a week of cross-tapering the venlafaxine and desvenlafaxine). omeprazole (PRILOSEC) 20 mg capsule Take 1 capsule by mouth two times a day. tiZANidine (ZANAFLEX) 4 mg tablet Take 1 tablet by mouth every 8 hours as needed (muscle spasms). dulaglutide (TRULICITY) 0.75 mg/0.5 mL pen injector Inject 0.75 mg subcutaneously one time a week. Inject dose once per week. Discard Pen After calcium-cholecalciferol, D3, (OSCAL+D 250) 250 mg-3.125 mcg (125 unit) per tablet Take 1 tablet by mouth two times a day. sucralfate (CARAFATE) 1 gram tablet Take 1 tablet by mouth two times a day. buPROPion SR (WELLBUTRIN SR) 200 mg 12 hr tablet Take 1 tablet by mouth once daily. metFORMIN ER (GLUCOPHAGE XR) 500 mg 24 hr tablet Take 2 tablets by mouth daily with breakfast. hydroCHLOROthiazide 25 mg tablet Take 1 tablet by mouth once daily. losartan (COZAAR) 100 mg tablet Take 1 tablet by mouth once daily. potassium chloride (K-TAB) 10 mEq tablet Take 1 tablet by mouth once daily. Blood-Glucose Sensor (FREESTYLE ALTHEA 3 SENSOR) roney 1 Each as directed. Ascorbate Calcium 500 mg tab Take by mouth. lancets (TRUEPLUS LANCETS) 30 gauge Use with blood glucose test once daily blood sugar diagnostic (TRUE METRIX GLUCOSE TEST STRIP) test strip Use with blood glucose test once daily Blood Pressure Monitor (BLOOD PRESSURE KIT) 1 Each as needed. acetaminophen (TYLENOL) 500 mg tablet Take 1,000 mg by mouth every 8 hours as needed. elderberry fruit (ELDERBERRY ORAL) Take 1,000 mg [...] FAMILY HISTORY Problem Relation Age of Onset Di (more content not included)... [facility] 05-23-2025 History of Presen t illness Narrative This is a 50 year old female who presents today with: The patient is a 50-year-old female with depression, presenting for evaluation of two weeks of postprandial epigastric pain and bloating and management of worsening depressive symptoms. HISTORY OF PRESENT ILLNESS: Abdominal Pain: - Onset 2 weeks ago. - Pain occurs after eating, accompanied by bloating and cramping. - Silvia describes pain as similar to menstrual cramps. - Silvia avoids eating due to anticipated pain. - Silvia denies recent illness, heartburn, indigestion, diarrhea, constipation, hematochezia, or melena. - Last bowel movement at 0400 today. last colonoscopy in 2022 with a 10-year clearance. Last EGD 2022 -- recommended repeat in 3-5 years. - Taking Carafate and omeprazole BID. Depression: - Worsening mood over the past month. - Increased Wellbutrin to 200 mg daily during last visit. - Silvia reports fatigue, anhedonia, and cognitive difficulties. - Experiencing insomnia, sleeping 3-4 hours per night. - Taking venlafaxine, started last year. - Silvia denies history of sleep apnea; reports snoring. - Irregular menstrual cycles; last period in April, previous in November. Underwent endometrial ablation. 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 For 7 days (with desvenlafaine 25mg.) then stop. desvenlafaxine ER (PRISTIQ) 25 mg 24 hr tablet Take 1 tablet by mouth once daily. Take with venlafaxine 75 mg daily X 1 week, then stop the venlafaxine and increase the desvenlafaxine to 50 mg daily. desvenlafaxine ER (PRISTIQ) 50 mg 24 hr tablet Take 1 tablet by mouth once daily. Start after a week of cross-tapering the venlafaxine and desvenlafaxine). omeprazole (PRILOSEC) 20 mg capsule Take 1 capsule by mouth two times a day. tiZANidine (ZANAFLEX) 4 mg tablet Take 1 tablet by mouth every 8 hours as needed (muscle spasms). dulaglutide (TRULICITY) 0.75 mg/0.5 mL pen injector Inject 0.75 mg subcutaneously one time a week. Inject dose once per week. Discard Pen After calcium-cholecalciferol, D3, (OSCAL+D 250) 250 mg-3.125 mcg (125 unit) per tablet Take 1 tablet by mouth two times a day. sucralfate (CARAFATE) 1 gram tablet Take 1 tablet by mouth two times a day. buPROPion SR (WELLBUTRIN SR) 200 mg 12 hr tablet Take 1 tablet by mouth once daily. metFORMIN ER (GLUCOPHAGE XR) 500 mg 24 hr tablet Take 2 tablets by mouth daily with breakfast. hydroCHLOROthiazide 25 mg tablet Take 1 tablet by mouth once daily. losartan (COZAAR) 100 mg tablet Take 1 tablet by mouth once daily. potassium chloride (K-TAB) 10 mEq tablet Take 1 tablet by mouth once daily. Blood-Glucose Sensor (FREESTYLE ALTHEA 3 SENSOR) roney 1 Each as directed. Ascorbate Calcium 500 mg tab Take by mouth. lancets (TRUEPLUS LANCETS) 30 gauge Use with blood glucose test once daily blood sugar diagnostic (TRUE METRIX GLUCOSE TEST STRIP) test strip Use with blood glucose test once daily Blood Pressure Monitor (BLOOD PRESSURE KIT) 1 Each as needed. acetaminophen (TYLENOL) 500 mg tablet Take 1,000 mg by mouth every 8 hours as needed. elderberry fruit (ELDERBERRY ORAL) Take 1,000 mg [...] FAMILY HISTORY Problem Relation Age of Onset Diabetes Father Heart Father 54 heart attack, CHF 2017 Hypertension Father A-Fib Stroke Father 57 Obesity Father other (Congestive Heart Failure) Father Hypertension Mother A fib Stroke Mother 60 severe and has fully recovered Osteoporosis Mother Heart Maternal Grandfather CHF and Enlarged Heart Cancer Maternal Grandmother bone cancer Diabetes Maternal Grandmother Breast Cancer Maternal Grandmother 78 Heart Paternal Grandfather NE Diabetes Paternal Grandmother other (Lung Problems) Paternal Grandmother other (Rapid Airway Disease) Son Anesthesia Problems No Family History SOCIAL HISTORY[1] REVIEW OF SYSTEMS Constitutional: (+) fatigue, (+) insomnia, (+) decreased appetite Ears/Nose/Mouth/Throat: (+) snoring Gastrointestinal: (+) abdominal pain, (+) abdominal bloating, (+) flatulence, (+) abdominal cramping, (-) heartburn, (-) indigestion, (-) diarrhea, (-) constipation, (-) hematochezia, (-) melena Genitourinary: (+) irregular menstruation Skin: (+) skin picking Neurological: (+) word-finding difficulty, (+) cognitive fog Psychiatric: (+) depressed mood, (+) anhedonia EXAM: BP 128/86 Pulse 98 Resp 16 Wt 124.3 kg (274 lb) LMP (LMP Unknown) SpO2 95% BMI 44.22 kg/m PHYSICAL EXAM: General Appearance: Well appearing, alert, in no acute distress, well-hydrated, well nourished.. Skin: Skin color, texture, turgor normal, no suspicious rashes or lesions. Head: Normocephalic, no masses, lesions, tenderness or abnormalities. Eyes: Anicteric sclera. Extraocular movements are intact. . Lungs: Lungs clear to auscultation. No wheezing, rhonchi, rales.. Heart: RRR without murmur, gallop, or rubs. No ectopy. Abdomen: Abdomen soft, non-tender. Bowel sounds normal. No masses, organomegaly. Neurologic: Gait normal. Sensation grossly intact.. ASSESSMENT/PLAN 1. Fatigue, unspecified type (R53.83) - Chronic fatigue with poor sleep (3-4 hours/night); possible sleep apnea contributing to daytime fatigue. - Order home sleep study to evaluate for sleep apnea. 2. Generalized abdominal pain (R10.84) - Ongoing abdominal pain and bloating for 2 weeks, worse with eating; no recent illness, heartburn, indigestion, diarrhea, constipation, hematochezia, or melena. - On Carafate and omeprazole BID. - Referral to general surgery for evaluation and consideration of repeat EGD. - Start dicyclomine for crampiness; discussed potential for constipation. - Educated on the connection between serotonin, mood, and gut symptoms. ? Component of IBS. - Advised to report if symptoms worsen or new symptoms develop. 3. Anxiety and depression (F41.9) - Worsening mood over the past month; increased Wellbutrin to 200 mg daily; on venlafaxine since last year. - Symptoms include fatigue, anhedonia, insomnia, cognitive fog, and dermatillomania. - Discussed options: switch to bupropion XL, increase venlafaxine, switch to Pristiq, add amitriptyline, nortriptyline, Remeron, Rexulti, or Abilify. - Start cross-taper from venlafaxine to Pristiq; - Discussed potential addition of amitriptyline for sleep if needed. - Discussed risks, benefits, and alternatives; patient agreed to switch to Pristiq. Discussed treatment plan and patient voices understanding. Patient's questions answered appropriately. Medications and potential side effects were discussed and patient voices understanding. Return to the office as scheduled or as needed for worsening/no improvement. Savita Griffith APRN.CAST SHELL GRINDER Recording using [employer] software for draft documentation of the visit was discussed with the patient/authorized service representative; all questions welcomed and answered. Patient/authorized service representative agreed to proceed [1] Social History Tobacco Use Smoking status: Never Smokeless tobacco: Never Vaping Use Vaping status: Never Used Substance Use Topics Alcohol use: Yes Comment: Seldom. a couple times a year Drug use: No documented in this encounter [facility] 05-22-2025 Instructions Savita Griffith APRN.CNP - 05/22/2025 1:44 PM EDT Schedule with general surgery. Let me know if you do not hear from the sleep study people. 3. Cross taper the venlafaxine with the desvenlafaxine. Take venlafaxine 75mg and desvenlafaxine 25 mg X 1 week. Then stop the venlafaxine and increase the desvenlafaxine to 50 mg daily. 4. Recheck in 1 month. documented in this encounter [facility] 05-17-2025 Telephone encount er Note Prescription Refill Information The patient has been identified by name and date of : Yes Caregiver verified no other encounters exist for this prescription request: Yes Caregiver confirmed with patient/requestor that no other refills are due, in the near future, with this provider at this time: Yes The last office visit in the department: 04/17/25 Does the patient have a future office visit with this provider/department: Yes, 05/22/25 Requested Prescriptions Pending Prescriptions Disp Refills omeprazole (PRILOSEC) 20 mg capsule 60 capsule 5 Sig: Take 1 capsule by mouth two times a day. potassium chloride (K-TAB) 10 mEq tablet 90 tablet 3 Sig: Take 1 tablet by mouth once daily. tiZANidine (ZANAFLEX) 4 mg tablet 30 tablet 1 Sig: Take 1 tablet by mouth every 8 hours as needed (muscle spasms). dulaglutide (TRULICITY) 0.75 mg/0.5 mL pen injector 4 each 5 Sig: Inject 0.75 mg subcutaneously one time a week. Inject dose once per week. Discard Pen After *Potassium is not due for refill. 90 day rx with 3 refills was sent to pharmacy in January. All other meds are due to be refilled. Charly Pyle LPN May 17, 2025 1:54 PM [facility] 05-17-2025 Miscellaneous Notes Formattin g of this note is different from the original. Prescription Refill Information The patient has been identified by name and date of : Yes Caregiver verified no other encounters exist for this prescription request: Yes Caregiver confirmed with patient/requestor that no other refills are due, in the near future, with this provider at this time: Yes The last office visit in the department: 04/17/25 Does the patient have a future office visit with this provider/department: Yes, 05/22/25 Requested Prescriptions Pending Prescriptions Disp Refills omeprazole (PRILOSEC) 20 mg capsule 60 capsule 5 Sig: Take 1 capsule by mouth two times a day. potassium chloride (K-TAB) 10 mEq tablet 90 tablet 3 Sig: Take 1 tablet by mouth once daily. tiZANidine (ZANAFLEX) 4 mg tablet 30 tablet 1 Sig: Take 1 tablet by mouth every 8 hours as needed (muscle spasms). dulaglutide (TRULICITY) 0.75 mg/0.5 mL pen injector 4 each 5 Sig: Inject 0.75 mg subcutaneously one time a week. Inject dose once per week. Discard Pen After *Potassium is not due for refill. 90 day rx with 3 refills was sent to pharmacy in January. All other meds are due to be refilled. Charly Pyle LPN May 17, 2025 1:54 PM documented in this encounter [facility] 05-17-2025 Telephone encount er Note Prescription Refill Information The patient has been identified by name and date of : Yes Caregiver verified no other encounters exist for this prescription request: Yes Caregiver confirmed with patient/requestor that no other refills are due, in the near future, with this provider at this time: Yes The last office visit in the department: 04/17/25 Does the patient have a future office visit with this provider/department: Yes, 05/22/25 Requested Prescriptions Pending Prescriptions Disp Refills calcium-cholecalciferol, D3, (OSCAL+D 250) 250 mg-3.125 mcg (125 unit) per tablet 60 tablet 11 Sig: Take 1 tablet by mouth two times a day. sucralfate (CARAFATE) 1 gram tablet 180 tablet 1 Sig: Take 1 tablet by mouth two times a day. *Last rx(s) written 04/17/25 and sent to [facility] pharmacy. Pt not due for refill. message to pt advising of the same. Charly Pyle LPN May 17, 2025 1:51 PM [facility] 05-17-2025 Miscellaneous Notes Formattin g of this note is different from the original. Prescription Refill Information The patient has been identified by name and date of : Yes Caregiver verified no other encounters exist for this prescription request: Yes Caregiver confirmed with patient/requestor that no other refills are due, in the near future, with this provider at this time: Yes The last office visit in the department: 04/17/25 Does the patient have a future office visit with this provider/department: Yes, 05/22/25 Requested Prescriptions Pending Prescriptions Disp Refills calcium-cholecalciferol, D3, (OSCAL+D 250) 250 mg-3.125 mcg (125 unit) per tablet 60 tablet 11 Sig: Take 1 tablet by mouth two times a day. sucralfate (CARAFATE) 1 gram tablet 180 tablet 1 Sig: Take 1 tablet by mouth two times a day. *Last rx(s) written 04/17/25 and sent to [facility] pharmacy. Pt not due for refill. MC message to pt advising of the same. Charly Pyle LPN May 17, 2025 1:51 PM documented in this encounter [facility] 05-03-2025 Telephone encount er Note Prescription Refill Information The patient has been identified by name and date of : Yes Caregiver verified no other encounters exist for this prescription request: Yes Caregiver confirmed with patient/requestor that no other refills are due, in the near future, with this provider at this time: Yes The last office visit in the department: 04/17/25 Does the patient have a future office visit with this provider/department: Yes, 05/20/25 Requested Prescriptions Pending Prescriptions Disp Refills dulaglutide (TRULICITY) 0.75 mg/0.5 mL pen injector 4 each 5 Sig: Inject 0.75 mg subcutaneously one time a week. Inject dose once per week. Discard Pen After Charly Pyle LPN May 03, 2025 1:54 PM [facility] 05-03-2025 Miscellaneous Notes Formattin g of this note is different from the original. Prescription Refill Information The patient has been identified by name and date of : Yes Caregiver verified no other encounters exist for this prescription request: Yes Caregiver confirmed with patient/requestor that no other refills are due, in the near future, with this provider at this time: Yes The last office visit in the department: 04/17/25 Does the patient have a future office visit with this provider/department: Yes, 05/20/25 Requested Prescriptions Pending Prescriptions Disp Refills dulaglutide (TRULICITY) 0.75 mg/0.5 mL pen injector 4 each 5 Sig: Inject 0.75 mg subcutaneously one time a week. Inject dose once per week. Discard Pen After Charly Pyle LPN May 03, 2025 1:54 PM documented in this encounter [facility] 04-26-2025 Telephone encount er Note MC message read by pt. Charly Pyle LPN [facility] 04-26-2025 Miscellaneous Notes Formattin g of this note might be different from the original. MC message read by pt. Charly Pyle LPN Phoned pt, no answer, unable to leave message d/t the number has calling restrictions. MC message sent. Charly Pyle LPN Can we please let patient know that her labwork looks good, except her potassium is just a little low. Please increase potassium-rich foods in the diet (ie. bananas, cantaloupe, beans, sweet potato, potato, spinach, orange juice). Please repeat the lab in 2 weeks. She does not need to fast. Savita Griffith APRN.[employer] GRINDER documented in this encounter [facility] 04-24-2025 Telephone encount er Note Phoned pt, no answer, unable to leave message d/t the number has calling restrictions. MC message sent. Charly Pyle LPN [facility] 04-23-2025 Telephone encount er Note Can we please let patient know that her labwork looks good, except her potassium is just a little low. Please increase potassium-rich foods in the diet (ie. bananas, cantaloupe, beans, sweet potato, potato, spinach, orange juice). Please repeat the lab in 2 weeks. She does not need to fast. Savita Griffith APRN.ALLAN [facility] 04-19-2025 History of Presen t illness Narrative Radiology Service Progress Note PATIENT NAME: Silvia Dixon DATE OF SERVICE: April 19, 2025 TIME: 1:26 PM PATIENT IDENTITY VERIFICATION COMPLETED USING TWO (2) IDENTIFIERS: Name and Date of confirmed by patient verbally. FALL SCREENING: Has the patient had 2 falls in the last year or 1 fall with injury or currently using an Ambulatory Assistive Device (Walker, Cane, Wheelchair, Crutches, etc.)? No PATIENT GENDER DATA: Assigned female at . status: : No status: N/A PATIENT RELEVANT IMPLANT DATA REVIEWED: Not Applicable PATIENT PRESENTS WITH AN IMPLANTABLE OR ATTACHED DISTANCE LEARNING TECHNICIAN: No RADIOLOGY DEPARTMENT: Mammography PERIPHERAL IV DATA: Not applicable SIGNED BY: OLLIE Gore) April 19, 2025 1:26 PM documented in this encounter [facility] 04-19-2025 Note HNO ID: [id number] Author: EDEN PALM RT(R) Service: Radiology Author Type: Technologist Type: Progress Notes Filed: 04/19/2025 13:26 Note Text: Radiology Service Progress Note PATIENT NAME: Silvia Dixon DATE OF SERVICE: April 19, 2025 TIME: 1:26 PM PATIENT IDENTITY VERIFICATION COMPLETED USING TWO (2) IDENTIFIERS: Name and Date of confirmed by patient verbally. FALL SCREENING: Has the patient had 2 falls in the last year or 1 fall with injury or currently using an Ambulatory Assistive Device (Walker, Cane, Wheelchair, Crutches, etc.)? No PATIENT GENDER DATA: Assigned female at . status: : No status: N/A PATIENT RELEVANT IMPLANT DATA REVIEWED: Not Applicable PATIENT PRESENTS WITH AN IMPLANTABLE OR ATTACHED DISTANCE LEARNING TECHNICIAN: No RADIOLOGY DEPARTMENT: Mammography PERIPHERAL IV DATA: Not applicable SIGNED BY: RT Bao(R) April 19, 2025 1:[address] [facility] 04-17-2025 Note HNO ID: [id number] Author: SAVITA GRIFFITH APRN.CAST SHELL GRINDER Service: ? Author Type: Nurse Practitioner Type: Progress Notes Filed: 04/17/2025 21:14 Note Text: This is a 50 year old female who presents today with: Silvia Michael Dixon is a 50-year-old female with a history of HTN, DM, depression, and GERD, presenting for a blood pressure check. HISTORY OF PRESENT ILLNESS: Hypertension: - Well-controlled with Losartan and HCTZ. - Home BP readings: 110/70 to 120/80 mmHg. - One elevated reading during a family emergency. - Denies chest pain, palpitations, or peripheral edema. Diabetes Mellitus: - Managed with Trulicity and Glucophage. - Fingerstick glucose readings around 115 mg/dL in the afternoon. - Discontinued continuous glucose monitor due to inaccuracy. - Last A1c in October. - Denies polydipsia, polyuria, or paresthesias. Depression: - Managed with Effexor and Wellbutrin. - Mood is "good" about half the time. - Experiences anhedonia and lack of motivation. - Effexor helps with hot flashes. GERD: - Managed with Prilosec and Carafate. - Symptoms well-controlled. Hypokalemia: - Diagnosed in January by Dr. Zhang; started on potassium supplement. - Missed follow-up blood draw. 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 hydroCHLOROthiazide 25 mg tablet Take 1 tablet by mouth once daily. losartan (COZAAR) 100 mg tablet Take 1 tablet by mouth once daily. tiZANidine (ZANAFLEX) 4 mg tablet Take 1 tablet by mouth every 8 hours as needed (muscle spasms). potassium chloride (K-TAB) 10 mEq tablet Take 1 tablet by mouth once daily. omeprazole (PRILOSEC) 20 mg capsule Take 1 capsule by mouth two times a day. dulaglutide (TRULICITY) 0.75 mg/0.5 mL pen injector Inject 0.75 mg subcutaneously one time a week. Inject dose once per week. Discard Pen After Blood-Glucose Sensor (FREESTYLE ALTHEA 3 SENSOR) roney 1 Each as directed. Ascorbate Calcium 500 mg tab Take by mouth. lancets (TRUEPLUS LANCETS) 30 gauge Use with blood glucose test once daily blood sugar diagnostic (TRUE METRIX GLUCOSE TEST STRIP) test strip Use with blood glucose test once daily Blood Pressure Monitor (BLOOD PRESSURE KIT) 1 Each as needed. ibuprofen (ADVIL) 200 mg tablet Take 200 mg by mouth every 6 hours as needed. acetaminophen (TYLENOL) 500 mg tablet Take 1,000 mg by mouth every 8 hours as needed. elderberry fruit (ELDERBERRY ORAL) Take 1,000 mg by mouth once daily. Blood Pressure Cuff - Home Use BLOOD PRESSURE CUFF FOR HOME USE. DX: LABILE BLOOD PRESSURE ascorbic acid (VITAMIN C) 500 mg tablet Take 500 mg by mouth once daily. multivitamin tablet Take 1 tablet by mouth once daily. calcium-cholecalciferol, D3, (OSCAL+D 250) 250 mg-3.125 mcg (125 unit) per tablet Take 1 tablet by mouth two times a day. sucralfate (CARAFATE) 1 gram tablet Take 1 tablet by mouth two times a day. venlafaxine ER (EFFEXOR XR) 150 mg 24 hr capsule Take 1 capsule by mouth once daily. buPROPion SR (WELLBUTRIN SR) 200 mg 12 hr tablet Take 1 tablet by mouth once daily. No current facility-administered medications for this visit. FAMILY HISTORY Problem Relation Age of Onset Diabetes Father Heart Father 54 heart attack, CHF 2017 Hypertension Father A-Fib Stroke Father 57 Obesity Father other (Congestive Heart Failure) Father Hypertension Mother A fib Stroke Mother 60 severe and has fully recovered Osteoporosis Mother Heart Maternal Grandfather CHF and Enlarged Heart Cancer Maternal Grandmother bone cancer Diabetes Maternal Grandmother Breast Cancer Maternal Grandmother 78 Heart Paternal Grandfather [place] (more content not included)... [facility] 04-15-2025 Telephone encount er Note Prescription Refill Information The patient has been identified by name and date of : Yes Caregiver verified no other encounters exist for this prescription request: Yes Caregiver confirmed with patient/requestor that no other refills are due, in the near future, with this provider at this time: Yes The last office visit in the department: 02/06/25 Does the patient have a future office visit with this provider/department: Yes Requested Prescriptions Pending Prescriptions Disp Refills buPROPion SR (WELLBUTRIN SR) 150 mg 12 hr tablet 30 tablet 5 Sig: Take 1 tablet by mouth once daily. Leni Christensen LPN April 15, 2025 1:32 PM [facility] 04-15-2025 Miscellaneous Notes Formattin g of this note is different from the original. Prescription Refill Information The patient has been identified by name and date of : Yes Caregiver verified no other encounters exist for this prescription request: Yes Caregiver confirmed with patient/requestor that no other refills are due, in the near future, with this provider at this time: Yes The last office visit in the department: 02/06/25 Does the patient have a future office visit with this provider/department: Yes Requested Prescriptions Pending Prescriptions Disp Refills buPROPion SR (WELLBUTRIN SR) 150 mg 12 hr tablet 30 tablet 5 Sig: Take 1 tablet by mouth once daily. Leni Christensen LPN April 15, 2025 1:32 PM documented in this encounter [facility] 04-10-2025 Telephone encount er Note Phoned patient to notify of needing a follow up for blood pressure/meds Prescription Refill Information The patient has been identified by name and date of : Yes Caregiver verified no other encounters exist for this prescription request: Yes Caregiver confirmed with patient/requestor that no other refills are due, in the near future, with this provider at this time: Yes The last office visit in the department: 02/06/25 Does the patient have a future office visit with this provider/department: No Requested Prescriptions Pending Prescriptions Disp Refills metFORMIN ER (GLUCOPHAGE XR) 500 mg 24 hr tablet 60 tablet 5 Sig: Take 2 tablets by mouth daily with breakfast. hydroCHLOROthiazide 25 mg tablet 30 tablet 5 Sig: Take 1 tablet by mouth once daily. Bella Mclean LPN April 10, 2025 9:50 AM [facility] 04-10-2025 Miscellaneous Notes Formattin g of this note is different from the original. Phoned patient to notify of needing a follow up for blood pressure/meds Prescription Refill Information The patient has been identified by name and date of : Yes Caregiver verified no other encounters exist for this prescription request: Yes Caregiver confirmed with patient/requestor that no other refills are due, in the near future, with this provider at this time: Yes The last office visit in the department: 02/06/25 Does the patient have a future office visit with this provider/department: No Requested Prescriptions Pending Prescriptions Disp Refills metFORMIN ER (GLUCOPHAGE XR) 500 mg 24 hr tablet 60 tablet 5 Sig: Take 2 tablets by mouth daily with breakfast. hydroCHLOROthiazide 25 mg tablet 30 tablet 5 Sig: Take 1 tablet by mouth once daily. Bella Mclean LPN April 10, 2025 9:50 AM documented in this encounter [facility] 04-10-2025 Telephone encount er Note Left message for patient to call office back to set up a bp follow up appointmtent. Prescription Refill Information The patient has been identified by name and date of : Yes Caregiver verified no other encounters exist for this prescription request: Yes Caregiver confirmed with patient/requestor that no other refills are due, in the near future, with this provider at this time: Yes The last office visit in the department: 02/06/25 Does the patient have a future office visit with this provider/department: No Requested Prescriptions Pending Prescriptions Disp Refills losartan (COZAAR) 100 mg tablet 30 tablet 5 Sig: Take 1 tablet by mouth once daily. Bella Mclean LPN April 10, 2025 9:10 AM [facility] 04-10-2025 Miscellaneous Notes Formattin g of this note is different from the original. Left message for patient to call office back to set up a bp follow up appointmtent. Prescription Refill Information The patient has been identified by name and date of : Yes Caregiver verified no other encounters exist for this prescription request: Yes Caregiver confirmed with patient/requestor that no other refills are due, in the near future, with this provider at this time: Yes The last office visit in the department: 02/06/25 Does the patient have a future office visit with this provider/department: No Requested Prescriptions Pending Prescriptions Disp Refills losartan (COZAAR) 100 mg tablet 30 tablet 5 Sig: Take 1 tablet by mouth once daily. Bella Mclean LPN April 10, 2025 9:10 AM documented in this encounter [facility] 02-20-2025 Telephone encount er Note Prescription Refill Information The patient has been identified by name and date of : Yes Caregiver verified no other encounters exist for this prescription request: Yes Caregiver confirmed with patient/requestor that no other refills are due, in the near future, with this provider at this time: Yes The last office visit in the department: 02/06/25 Does the patient have a future office visit with this provider/department: Yes, 04/15/25 Requested Prescriptions Pending Prescriptions Disp Refills venlafaxine ER (EFFEXOR XR) 150 mg 24 hr capsule 30 capsule 3 Sig: Take 1 capsule by mouth once daily. (Start week #3). Charly Pyle LPN February 20, 2025 2:08 PM [facility] 02-20-2025 Miscellaneous Notes Formattin g of this note is different from the original. Prescription Refill Information The patient has been identified by name and date of : Yes Caregiver verified no other encounters exist for this prescription request: Yes Caregiver confirmed with patient/requestor that no other refills are due, in the near future, with this provider at this time: Yes The last office visit in the department: 02/06/25 Does the patient have a future office visit with this provider/department: Yes, 04/15/25 Requested Prescriptions Pending Prescriptions Disp Refills venlafaxine ER (EFFEXOR XR) 150 mg 24 hr capsule 30 capsule 3 Sig: Take 1 capsule by mouth once daily. (Start week #3). Charly Pyle LPN February 20, 2025 2:08 PM documented in this encounter [facility] 02-15-2025 Note HNO ID: [id number] Author: JACOB CUBA APRN.CAST SHELL GRINDER Service: ? Author Type: Nurse Practitioner Type: Progress Notes Filed: 02/15/2025 11:18 Note Text: [facility] Subjective Silvia Dixon is a 49 year old female. Patient presents with: Sore Throat: Headache, sneezing, runny nose, post nasal drainage, R side swollen lymph node x 4 days Patient came in with complaints of sore throat and headache. Patient stated that symptoms started 4 days ago. Patient reports sneezing, runny nose, post nasal drip, and swollen lymph nodes. Patient states that she has tried tylenol for the headache. Patient states that it hurts to swallow. Patient reports some seasonal allergies and sometimes takes Claritin. Denies fever, chills, sinus pressure, ear pain, and shortness of breath. The history is provided by the patient. No biblical languages professor was used. Sore Throat Associated symptoms include headaches and trouble swallowing. Pertinent negatives include no coughing, ear pain or shortness of breath. Review of Systems Constitutional: Negative. HENT: Positive for postnasal drip, rhinorrhea, sneezing, sore throat and trouble swallowing. Negative for ear pain, sinus pressure and sinus pain. Respiratory: Negative for cough and shortness of breath. Neurological: Positive for headaches. 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 potassium chloride (K-TAB) 10 mEq tablet Take 1 tablet by mouth once daily. omeprazole (PRILOSEC) 20 mg capsule Take 1 capsule by mouth two times a day. sucralfate (CARAFATE) 1 gram tablet Take 1 tablet by mouth two times a day. venlafaxine ER (EFFEXOR XR) 150 mg 24 hr capsule Take 1 capsule by mouth once daily. (Start week #3). losartan (COZAAR) 100 mg tablet Take 1 tablet by mouth once daily. metFORMIN ER (GLUCOPHAGE XR) 500 mg 24 hr tablet Take 2 tablets by mouth daily with breakfast. hydroCHLOROthiazide 25 mg tablet Take 1 tablet by mouth once daily. dulaglutide (TRULICITY) 0.75 mg/0.5 mL pen injector Inject 0.75 mg subcutaneously one time a week. Inject dose once per week. Discard Pen After buPROPion SR (WELLBUTRIN SR) 150 mg 12 hr tablet Take 1 tablet by mouth once daily. Blood-Glucose Sensor (FREESTYLE ALTHEA 3 SENSOR) roney 1 Each as directed. Ascorbate Calcium 500 mg tab Take by mouth. calcium-cholecalciferol, D3, (OSCAL+D 250) 250 mg-3.125 mcg (125 unit) per tablet Take 1 tablet by mouth two times a day. lancets (TRUEPLUS LANCETS) 30 gauge Use with blood glucose test once daily blood sugar diagnostic (TRUE METRIX GLUCOSE TEST STRIP) test strip Use with blood glucose test once daily Blood Pressure Monitor (BLOOD PRESSURE KIT) 1 Each as needed. ibuprofen (ADVIL) 200 mg tablet Take 200 mg by mouth every 6 hours as needed. acetaminophen (TYLENOL) 500 mg tablet Take 1,000 mg by mouth every 8 hours as needed. elderberry fruit (ELDERBERRY ORAL) Take 1,000 mg by mouth once daily. Blood Pressure Cuff - Home Use BLOOD PRESSURE CUFF FOR HOME USE. DX: LABILE BLOOD PRESSURE ascorbic acid (VITAMIN C) 500 mg tablet Take 500 mg by mouth once daily. multivitamin tablet Take 1 tablet by mouth once daily. fluticasone (FLONASE ALLERGY RELIEF) 50 mcg/actuation nasal spray Use 1 spray in each nostril once daily. loratadine (CLARITIN) 10 mg tablet Take 1 tablet by mouth once daily. docusate sodium (COLACE) 100 mg capsule Take 1 capsule by mouth two times a day as needed for constipation. (Patient not taking: Reported on 02/15/2025) FAMILY HISTORY Problem Relation Age of Onset Diabetes Father Heart Father 54 heart attack, CHF 2017 Hypertension Father A-Fib Stroke Father 57 Obesity Father other (Congestive Heart Failure) Father (more content not included)... [facility] 02-15-2025 History of Presen t illness Narrative [facility] Subjective Silvia Dixon is a 49 year old female. Patient presents with: Sore Throat: Headache, sneezing, runny nose, post nasal drainage, R side swollen lymph node x 4 days Patient came in with complaints of sore throat and headache. Patient stated that symptoms started 4 days ago. Patient reports sneezing, runny nose, post nasal drip, and swollen lymph nodes. Patient states that she has tried tylenol for the headache. Patient states that it hurts to swallow. Patient reports some seasonal allergies and sometimes takes Claritin. Denies fever, chills, sinus pressure, ear pain, and shortness of breath. The history is provided by the patient. No biblical languages professor was used. Sore Throat Associated symptoms include headaches and trouble swallowing. Pertinent negatives include no coughing, ear pain or shortness of breath. Review of Systems Constitutional: Negative. HENT: Positive for postnasal drip, rhinorrhea, sneezing, sore throat and trouble swallowing. Negative for ear pain, sinus pressure and sinus pain. Respiratory: Negative for cough and shortness of breath. Neurological: Positive for headaches. 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 potassium chloride (K-TAB) 10 mEq tablet Take 1 tablet by mouth once daily. omeprazole (PRILOSEC) 20 mg capsule Take 1 capsule by mouth two times a day. sucralfate (CARAFATE) 1 gram tablet Take 1 tablet by mouth two times a day. venlafaxine ER (EFFEXOR XR) 150 mg 24 hr capsule Take 1 capsule by mouth once daily. (Start week #3). losartan (COZAAR) 100 mg tablet Take 1 tablet by mouth once daily. metFORMIN ER (GLUCOPHAGE XR) 500 mg 24 hr tablet Take 2 tablets by mouth daily with breakfast. hydroCHLOROthiazide 25 mg tablet Take 1 tablet by mouth once daily. dulaglutide (TRULICITY) 0.75 mg/0.5 mL pen injector Inject 0.75 mg subcutaneously one time a week. Inject dose once per week. Discard Pen After buPROPion SR (WELLBUTRIN SR) 150 mg 12 hr tablet Take 1 tablet by mouth once daily. Blood-Glucose Sensor (FREESTYLE ALTHEA 3 SENSOR) roney 1 Each as directed. Ascorbate Calcium 500 mg tab Take by mouth. calcium-cholecalciferol, D3, (OSCAL+D 250) 250 mg-3.125 mcg (125 unit) per tablet Take 1 tablet by mouth two times a day. lancets (TRUEPLUS LANCETS) 30 gauge Use with blood glucose test once daily blood sugar diagnostic (TRUE METRIX GLUCOSE TEST STRIP) test strip Use with blood glucose test once daily Blood Pressure Monitor (BLOOD PRESSURE KIT) 1 Each as needed. ibuprofen (ADVIL) 200 mg tablet Take 200 mg by mouth every 6 hours as needed. acetaminophen (TYLENOL) 500 mg tablet Take 1,000 mg by mouth every 8 hours as needed. elderberry fruit (ELDERBERRY ORAL) Take 1,000 mg by mouth once daily. Blood Pressure Cuff - Home Use BLOOD PRESSURE CUFF FOR HOME USE. DX: LABILE BLOOD PRESSURE ascorbic acid (VITAMIN C) 500 mg tablet Take 500 mg by mouth once daily. multivitamin tablet Take 1 tablet by mouth once daily. fluticasone (FLONASE ALLERGY RELIEF) 50 mcg/actuation nasal spray Use 1 spray in each nostril once daily. loratadine (CLARITIN) 10 mg tablet Take 1 tablet by mouth once daily. docusate sodium (COLACE) 100 mg capsule Take 1 capsule by mouth two times a day as needed for constipation. (Patient not taking: Reported on 02/15/2025) FAMILY HISTORY Problem Relation Age of Onset Diabetes Father Heart Father 54 heart attack, CHF 2017 Hypertension Father A-Fib Stroke Father 57 Obesity Father other (Congestive Heart Failure) Father Hypertension Mother A fib Stroke Mother 60 severe and has fully recovered Osteoporosis Mother Heart Maternal Grandfather CHF and Enlarged Heart Cancer Maternal Grandmother bone cancer Diabetes Maternal Grandmother Breast Cancer Maternal Grandmother 78 Heart Paternal Grandfather NE Diabetes Paternal Grandmother other (Lung Problems) Paternal Grandmother other (Rapid Airway Disease) Son Anesthesia Problems No Family History Social History Tobacco Use Smoking status: Never Smokeless tobacco: Never Vaping Use Vaping status: Never Used Substance Use Topics Alcohol use: Yes Comment: Seldom. a couple times a year Drug use: No Objective BP 125/87 Pulse 103 Temp 36.3 C (97.3 F) Resp 18 Wt 127 kg (279 lb 15.8 oz) LMP (LMP Unknown) SpO2 98% BMI 45.19 kg/m Physical Exam Constitutional: Appearance: Normal appearance. HENT: Head: Normocephalic and atraumatic. Right Ear: Tympanic membrane, ear canal and external ear normal. Left Ear: Tympanic membrane, ear canal and external ear normal. Mouth/Throat: Mouth: Mucous membranes are moist. Pharynx: Uvula midline. Posterior oropharyngeal erythema and postnasal drip present. Cardiovascular: Rate and Rhythm: Normal rate and regular rhythm. Heart sounds: Normal heart sounds. Pulmonary: Effort: Pulmonary effort is normal. Breath sounds: Normal breath sounds. Skin: General: Skin is warm and dry. Neurological: Mental Status: She is alert and oriented to person, place, and time. {ASSESSMENT/PLAN: 1. Sore throat - ICD9: 462, ICD10: J02.9 - Group A strep molecular testing negative - Patient will start fluticasone nasal spray to help with inflammation and sinus congestion - Discussed supportive care treatment with fluids, rest and analgesia. - The patient will also use Claritin - The patient should follow up if symptoms persist or worsen - Patient agreeable to care plan with no questions at this time - STREP A MOLECULAR (POC) - FLUTICASONE PROPIONATE 50 MCG/ACTUATION NASAL SPRAY,SUSPENSION - LORATADINE 10 MG TABLET Fredy Landry History and Record Review External record(s) reviewed: no prior records. TEACHING PROVIDER (Physician/PA/APPLIQUER ZIGZAG) NOTE OF PERSONAL INVOLVEMENT IN CARE: I have personally seen and examined the patient and performed the medical decision-making components. I have reviewed the Advanced Practice Registered Nurse (APPLIQUER ZIGZAG) Student's documentation and verified the findings in the note as written. Any additions or changes are noted in bold/italics. Signature: Jacob Cuba Date: 02/15/2025 Time: 11:18 AM Procedures documented in this encounter [facility] 02-07-2025 Hospital Discharg e instructions Additional Instructions Date of Discharge: 02/07/25 [facility] Work Phone: 02-07-2025 Discharge summary [facility] 02-07-2025 Discharge summary [facility] 02-07-2025 Note [facility] Medical Records Department [address] [place] [address] Discharge Summary 02/07/25 1302 MR#: [id number] Acct: [id number] Name: SILVIA DIXON Rep #: [id number] : 1975 49 From: Nilo Hidalgo DO PCP: Dr. Randy Zhang MD Status:ADM LEONORA Location: [place] [address] Providers Date of Admission: 02/06/25 Date of Discharge: 02/07/25 Primary Care Physician: Dr. Randy Zhang MD Reason For Visit: CHEST PRESSURE Diagnosis Discharge Diagnosis (1) Chest pain, exertional: Status: Acute Code(s): R07.9 - Chest pain, unspecified Medications at Discharge Home Medications multivitamin with folic acid 400 mcg tablet 1 tab PO DAILY supplement 02/17/14 omeprazole 20 mg capsule,delayed release 20 mg PO BID GERD 02/17/14 ascorbate calcium (vitamin C) 500 mg tablet 500 mg PO DAILY supplement 05/24/23 sucralfate 1 gram tablet (Carafate) 1 g PO BID stomach 05/28/24 bupropion HCl 150 mg tablet,12 hr sustained-release 150 mg PO DAILY mental health 07/24/24 calcium 250 mg (as carbonate)-vitamin D3 3.125 mcg (125 unit) tablet 1 tab PO BID supplement 07/24/24 hydrochlorothiazide 25 mg tablet 25 mg PO DAILY blood pressure 07/24/24 losartan 100 mg tablet 100 mg PO DAILY blood pressure 07/24/24 venlafaxine 150 mg capsule,extended release 24 hr 150 mg PO DAILY anxiety 07/24/24 dulaglutide 0.75 mg/0.5 mL subcutaneous pen injector (Trulicity) 0.75 mg subcut QWEEK diabetes 02/06/25 metformin 500 mg tablet,extended release 24 hr 1,000 mg PO DAILY diabetes 02/06/25 Hospital Course Operations None Procedures EKG, Stress test and - (Chest x-ray, CTA chest) Summary of Care Provided Minutes Spent on Discharge: 35 Hospital Course: Patient is a 49-year-old female who presented [facility] ED on 02/06/2025 with chest pain. Short hospital course as noted below. Patient discharged home in stable condition on 02/07. 1. Chest pain, ACS ruled out ??? Presented with exertional chest pain and mildly elevated blood pressures. History of provoked remote PE, not on anticoagulation. Troponin x 3 negative in ED. No EKG changes noted. CTA chest was negative for PE. Stress test on 02/07 was negative. Suspect that anxiety played a role in her chest pain. Chest pain resolved by hospital day 2 and blood pressures improved on home blood pressure regimen. Stable for discharge home on 02/07. Chronic medical conditions: ??? Class III obesity: BMI 44 on admit. Recommended weight loss on discharge. ??? Type 2 diabetes mellitus: Continue home metformin and Trulicity on discharge. ??? Anxiety/depression: Continue home bupropion and venlafaxine. ??? Hypertension: Continue home losartan and hydrochlorothiazide. ??? GERD: Continue home omeprazole and sucralfate. Total clinical time spent by myself addressing the patient's medical issues, reviewing all the data, and collaborating with patient's care team: 35 minutes. Physical Exam Narrative General: Alert, Oriented x3, Cooperative, No apparent distress, morbid obesity HEENT: Atraumatic, PERRLA, EOMI, Normocephalic Oral: Moist Mucosa Neck: Supple, No JVD Lungs: Diminished, Normal air movement, No rhonchi, No wheeze, No rales Cardiovascular: Tachycardic, Regular Rhythm, Normal S1, Normal S2, No murmurs Abdomen: Soft, Non Tender, Non-Distended, No Hepato-splenomegaly Extremities: No edema, Capillary Refill Less than 3 Seconds Skin: No rashes, No breakdown Musculoskeletal: No Tenderness to Palpation of Joints or Extremities Neurological: No focal neurological deficits, Motor Exam 5/5 strength throughout, Sensory exam intact to light touch and pain Psych/Mental Status: Normal Affect, Appropriate Weight / BMI Weight Weight: 125.8 kg Body Mass Index (BMI) 44.7 ABG / Lab / Microbiology Data 02/06/25 15:14 02/06/25 15:14 Laboratory: Laboratory Results - last 24 hr 02/06/25 15:14: WBC 8.3, RBC 4.89, Hgb 14.2, Hct 42.2, MCV 86.3, MCH 29.0, MCHC 33.6, RDW Std Deviation 42.9, RDW Coeff of Casie 13.7, Plt Count 331, MPV 9.7, Immature Gran % (Auto) 0.500, Neut % (Auto) 50.3, Lymph % (Auto) 39.4, Swain % (Auto) 7.3, Eos % (Auto) 1.8, Baso % (Auto) 0.7, Absolute Neuts (auto) 4.2, Absolute Lymphs (auto) 3.25, Nucleated RBC % 0, D-Dimer Quant (PE/DVT) Cancelled, Sodium 138, Potassium 3.5, Chloride 102, Carbon Dioxide 23.0, Anion Gap 14, BUN 9, Creatinine 0.69 L , Estim Creat Clear Calc 137.25, Est GFR (MDRD) Non-Af 108, BUN/Creatinine Ratio 13.0, Glucose 111 H , Calcium 9.7, Troponin T High Sens < 6 02/06/25 16:19: D-Dimer Quant (PE/DVT) < 0.27 L 02/06/25 17:13: Troponin T Hi Sens 2 Hr < 6 02/06/25 19:14: Troponin T Hi Sens 4Hr < 6 02/07/25 05:22: Triglycerides 212 H, Cholesterol 183, LDL Cholesterol, Calc 96, VLDL Cholesterol 42 H, HDL Cholesterol 45, Cholesterol/HDL Ratio 4.07 02/07/25 11:24: POC Glucose 106 Radiograp (more content not included)... [facility] 02-06-2025 History and physi matt note Note Date/Time February 06, 2025 8:51p m [facility] Medical Records Department [address] [place] [address] H&P Exam - Hospitalist 02/06/252021 MR#: [id number] Acct: [id number] Name: SILVIA DIXON Rep #:[id number] : 1975 49 From: Cristopher ceron MD PCP: Dr. Randy Zhang MD Status:ADM I NO Location: [address] HPI - General General Date of Admission: 02/06/25 HPI Narrative SILVIA DIXON, is a 49 F who presents to the hospital with chest pain/pressure that started about 2 days ago. She noticed it more with activity and that it would resolve with rest. She was concerned because it felt like her previous PEthat she had in 2013. That 1 was provoked while being on a control pill and driving in [place]. She is no longer on anticoagulation. D-dimer was negative and a CTA was still obtained which was also negative for a large PE. Initial troponins were unremarkable, all 3 were less than 6 however she is fairly anxious about her chest pain and would like to stay overnight. Will planfor a stress test in the morning. She does state that the pain radiates down her right arm. [facility] Medical History Wears contact lenses Wears glasses Cancer Depression Anxiety Arthritis Migraine headache History of hiatal hernia Gastric reflux Non-smoker History of stress test History of echocardiogram Hypertension Diabetes Leg pain Anxiety and depression History of breast cancer Pulmonary embolism Home Medications ?Medication ?Instructions ?Recorded ?Last Taken ?Type multivitamin with folic acid 400 1 tab PO DAILY 01/05/25 History mcg tablet omeprazole 20 mg capsule,delayed 20 mg PO BID 02/17/14 01/05/25 History release metformin 500 mg tablet 500 mg PO BID 06/22/2201/05 History ascorbate calcium (vitamin C) 500 500 mg PO DAILY 05/1301/05/25 History mg tablet sucralfate 1 gram tablet (Carafate) 1 g PO BID 01/05/25 History bupropion HCl 150 mg tablet,12 hr 150 mg PO DAILY 07/1301/05/25 History sustained-release calcium 250 mg (as 1 tab PO BID 07/24/24 History carbonate)-vitamin D3 3.125 mcg (125 unit) tablet hydrochlorothiazide 25 mg tablet 25 mg PO DAILY 01/05/25 History losartan 100 mg tablet 100 mg PO DAILY 07/24/24 History venlafaxine 150 mg 150 mg PO DAILY 07/24/24 History capsule,extended release 24 hr dulaglutide 0.75 mg/0.5 mL 0.75 mg subcut QWEEK 02/02/25 History subcutaneous pen injector (Trulicity) metformin 500 mg tablet,extended 500 mg PO BID 5 Unknown History release 24 hr Allergy/AdvReac Type Severity Reaction Status Date / Time ketorolac tromethamine (From Allergy Hives Verified 02/06/25 14:40 Toradol) nitrofurantoin Allergy Hives Verified 02/06/25 14:40 Family History Mother A-fib CVA (cerebral vascular accident) Father A-fib Grandmother Breast cancer Surgical History S/P endometrial ablation Hx of bilateral breast reduction surgery History of bilateral breast reduction surgery Hx of tubal ligation History of lumpectomy History of mastectomy Social History number of children: 2 current occupational status: unemployed Smoking Status: Never smoker alcohol intake: never substance use type: does not use caffeine: Yes what type of physical activity do you participate in: walking seatbelt use: always do you feel safe at home: Yes additional social history: [employer] Patient is unemployed ROS Constitutional Constitutional: Denies chills, fatigue, fever(s) or malaise Eyes Eyes: Denies blurry vision ENT HEENT: Denies headache(s) or nasal discharge Cardiovascular Cardiovascular: Reports chest pain and dyspnea on exertion; Denies syncope Respiratory/Chest Respiratory/Chest: Denies cough, shortness of breath at rest or shortness of breath with exertion Gastrointestinal Gastrointestinal: Denies constipation, diarrhea, nausea or vomiting Genitourinary Genitourinary: Denies dysuria Neurologic Neurologic: Denies focal weakness, numbness or tremor(s) Psychiatric Psychiatric: Denies anxiety or depression Vital Signs Vital Signs Vital Signs: 02/06/25 14:40 02/06/25 14:52 02/06/25 16:35 Temperature 97.6 F L Temperature Source Oral Pulse Rate 119 H 103 H Respiratory Rate 20 H 23 H Respiratory Effort Short of Breath Blood Pressure 177/114 H Blood Pressure Mean 135 Pulse Ox 97 95 Oxygen Delivery Method Room Air 02/06/25 16:39 02/06/25 17:00 02/06/25 17:30 Temperature Temperature Source Pulse Rate 103 H 105 H 102 H Respiratory Rate 23 H 24 H 23 H Respiratory Effort Blood Pressure 133/99 H 141/100 H Blood Pressure Mean 110 114 Pulse Ox 94 96 95 Oxygen Delivery Method Room Air Room Air 02/06/25 18:00 02/06/25 18:00 02/06/25 18:00 Temperature Temperature Source Pulse Rate 106 H Respiratory Rate 24 H Respiratory Effort Blood Pressure 132/86 H 134/86 H 134/86 H Blood Pressure Mean 101 100 100 Pulse Ox 95 Oxygen Delivery Method Room Air 02/06/25 18:00 02/06/25 18:31 02/06/25 19:00 Temperature Temperature Source Pulse Rate 106 H 98 98 Respiratory Rate 18 20 H 20 H Respiratory Effort Blood Pressure 134/86 H 136/93 H Blood Pressure Mean 100 107 Pulse Ox 97 97 98 Oxygen Delivery Method Room Air 02/06/25 19:30 02/06/25 20:00 02/06/25 20:12 Temperature 98 F Temperature Source Pulse Rate 101 H 99 98 Respiratory Rate 16 19 H 20 H Respiratory Effort Blood Pressure 151/113 H 151/113 H Blood Pressure Mean 126 125 Pulse Ox 97 Oxygen Delivery Method Weight Weight: 279 lb 4.8 oz Body Mass Index (BMI) 45.1 Physical Exam Narrative General: Alert, Oriented x3, Cooperative, No apparent distress, morbid obesity HEENT: Atraumatic, PERRLA, EOMI, Normocephalic Oral: Moist Mucosa Neck: Supple, No JVD Lungs: Diminished, Normal air movement, No rhonchi, No wheeze, No rales Cardiovascular: Tachycardic, Regular Rhythm, Normal S1, Normal S2, No murmurs Abdomen: Soft, Non Tender, Non-Distended, No Hepato-splenomegaly Extremities: No edema, Capillary Refill Less than 3 Seconds Skin: No rashes, No breakdown Musculoskeletal: No Tenderness to Palpation of Joints or Extremities Neurological: No focal neurological deficits, Motor Exam 5/5 strength throughout, Sensory exam intact to light touch and pain Psych/Mental Status: Normal Affect, Appropriate Results Lab / Micro Data 02/06/25 15:14 02/06/25 15:14 Labs: Laboratory Results - last 24 hr 02/06/25 15:14: WBC 8.3, RBC 4.89, Hgb 14.2, Hct 42.2, MCV 86.3, MCH 29.0, MCHC 33.6, RDW Std Deviation 42.9, RDW Coeff of Casie 13.7, Plt Count 331, MPV 9.7, Immature Gran % (Auto) 0.500, Neut % (Auto) 50.3, Lymph % (Auto) 39.4, Swain % (Auto) 7.3, Eos % (Auto) 1.8, Baso % (Auto) 0.7, Absolute Neuts (auto) 4.2, Absolute Lymphs (auto) 3.25, Nucleated RBC % 0, D-Dimer Quant (PE/DVT) Cancelled, Sodium 138, Potassium 3.5, Chloride 102, Carbon Dioxide 23.0, Anion Gap 14, BUN 9, Creatinine 0.69 L, Estim Creat Clear Calc 137.25, Est GFR (MDRD) Non-Af 108, BUN/Creatinine Ratio 13.0, Glucose 111 H, Calcium 9.7, Troponin T High Sens < 6 02/06/25 16:19: D-Dimer Quant (PE/DVT) < 0.27 L 02/06/25 17:13: Troponin T Hi Sens 2 Hr < 6 02/06/25 19:14: Troponin T Hi Sens 4Hr < 6 Imaging Radiology Impression Chest X-Ray 02/06/25 14:57 IMPRESSION: No acute cardiopulmonary process. Reading Location: [facility] Chest CTA 02/06/25 18:17 IMPRESSION: LIMITED. NO LARGE CENTRAL PULMONARY EMBOLI. [facility] Assessment & Plan Assessment/Plan (1) Chest pain, exertional: PLAN: Plan 1. Chest pain rule out/essential HTN ? Blood pressures are little bit elevated but that is due to stress she states, will continue with her home blood pressure medications ? Will check a lipid panel in the morning ? Will plan for stress test, her troponins were all negative 2. Anxiety/depression ? Stable ? Continue with her home medications 3. DM2/morbid obesity ? She is on Trulicity which we will hold ? Blood sugars currently are stable and I do anticipate discharge by tomorrow afternoon so we will place her on a cardiac diet and she can resume her home medications on discharge ? BMI 45.1 4. GERD ? Stable ? Continue with her PPI and Carafate DVT: Ambulation Charges/Coding Visit Charges Inpatient E&M: 35426 Init Hosp L2 02/06/252050 <Electronically signed by Cristopher Tavera MD> Cosigner Signature (if applicable): CC: Dr. Cristopher Tavera MD; Dr. Randy Zhang MD~ Signed [facility] Work Phone: 1(866) 520-522105-28-2025 Evaluation note* Diagnosis Onset Date Resolution Status Admit Date Chest pain, exertional acute Ma y 2024 8:22pm [facility] Work Phone: 1(206) 408-694105-28-2025 Discharge summary Author Steven Reyes [facility] Note Date/Time February 06, 2025 8:08p m[facility] Medical Records Department [address] [place] [address] Emergency Department Summary 02/06/25 MR#: [id number] Acct: [id number] Name: SILVIA DIXON Rep #:[id number] : 1975 49 From: Steven Reyes MD PCP: Dr. Randy Zhang MD Status:REG E R Location: ED HPI History of Present Illness Chief Complaint: Upper Extremity Injury Detail of Chief Complaint: Patient presented because of right upper extremity pain per triage. HPI na Informant: patient Occured/Mechanism Comment: Patient having exertional dyspnea, chest pressure and right arm discomfort Onset/Context/Timing Onset: Days (Symptoms started 2 days ago) Context: Sudden Onset Timing: Intermittent Quality of Pain: - (The right upper extremity is achy and has chest pressure) Location: Right medial and right arm Current Severity: Gone Maximum Severity: Moderate Worsened by: Activity, walking up an incline Relieved by: 5 to 10 minutes after resting Associated Symptoms Associated Symptoms: Negative for Parasthesia, Weakness or Loss of Funtion Narrative Narrative: Patient is a 49-year-old woman. She has history of hypertension since 2012, type 2 diabetes for the past 3 years who presents with right arm pain per triage. Patient concern is that she has had shortness of breath with activity for the past 2 days. She does experience chest pressure with the activity. Thechest pressure resolves after she rest. Takes approximately 10 minutes to resolve. She does report pain radiating to her right upper extremity and through to her back. Her past history is also remarkable for DVT and PE. She is present on no anticoagulant. She has no known history of coronary artery disease. There is no record of stress test. Patient denies orthopnea or PND. Patient denies leg pain, swelling discoloration. She denies nausea, vomiting or diarrhea. She denies abdominal pain. She denies pleuritic chest pain. Patient has allergy to ketorolac. She has taken aspirin in the past with no reaction. Prior similar symptoms: No Recent Illness/Hospitalization: No PFSH PFSH Medical History Wears contact lenses Wears glasses Cancer Depression Anxiety Arthritis Migraine headache History of hiatal hernia Gastric reflux Non-smoker History of stress test History of echocardiogram Hypertension Diabetes Leg pain Anxiety and depression History of breast cancer Pulmonary embolism Home Medications ?Medication ?Instructions ?Recorded ?Last Taken ?Type multivitamin with folic acid 400 1 tab PO DAILY 01/05/25 History mcg tablet omeprazole 20 mg capsule,delayed 20 mg PO BID 02/17/14 01/05/25 History release dulaglutide 1.5 mg/0.5 mL 1.5 mg subcut QWEEK 06/22/22 01/02/25 History subcutaneous pen injector (Trulicity) metformin 500 mg tablet 500 mg PO BID 06/22/2201/05 History ascorbate calcium (vitamin C) 500 500 mg PO DAILY 05/1301/05/25 History mg tablet naproxen 500 mg tablet 500 mg PO BID PRN pain #30 t abs 11/25/23 Unknown Rx sucralfate 1 gram tablet (Carafate) 1 g PO BID 4 01/05/25 History bupropion HCl 150 mg tablet,12 hr 150 mg PO DAILY 07/1301/05/25 History sustained-release calcium 250 mg (as 1 tab PO BID 07/24/24 History carbonate)-vitamin D3 3.125 mcg (125 unit) tablet hydrochlorothiazide 25 mg tablet 25 mg PO DAILY 01/05/25 History losartan 100 mg tablet 100 mg PO DAILY 07/24/24 History venlafaxine 150 mg 150 mg PO DAILY 07/24/24 History capsule,extended release 24 hr oxycodone 5 mg tablet 5 mg PO Q12H PRN pain 2 days #4 01/05/25 Unknown Rx tabs prednisone 20 mg tablet 40 mg (2 x 20 mg) PO DAILY # 10 tabs 01/05/25 Unknown Rx Allergy/AdvReac Type Severity Reaction Status Date / Time ketorolac tromethamine (From Allergy Hives Verified 02/06/25 14:40 Toradol) nitrofurantoin Allergy Hives Verified 02/06/25 14:40 Family History Mother A-fib CVA (cerebral vascular accident) Father A-fib Grandmother Breast cancer Surgical History S/P endometrial ablation Hx of bilateral breast reduction surgery History of bilateral breast reduction surgery Hx of tubal ligation History of lumpectomy History of mastectomy Social History number of children: 2 current occupational status: unemployed Smoking Status: Never smoker alcohol intake: never substance use type: does not use caffeine: Yes what type of physical activity do you participate in: walking seatbelt use: always do you feel safe at home: Yes additional social history: [employer] Patient is unemployed ROS ROS ED Constitutional Constitutional ED: Denies chills, fever(s), subjective or sweats Eyes Eyes: Denies blurry vision or change in vision ENT ENT ED: Denies ear pain, rhinorrhea or sore throat Cardiovascular Cardiovascular: Reports chest pain; Denies orthopnea, palpitations, paroxysmal nocturnal dyspnea or racing heartbeat Respiratory/Chest Respiratory/Chest: Reports dyspnea and dyspnea on exertion; Denies cough, orthopnea, paroxysmal nocturnal dyspnea or sputum Gastrointestinal Gastrointestinal: Denies abdominal pain, diarrhea, melena or vomiting Genitourinary Genitourinary ED: Denies dysuria, hematuria or urinary frequency Musculoskeletal Musculoskeletal: Reports back pain; Denies neck pain Integumentary Denies rash Neurologic Neurologic: Denies paresthesias or weakness Endocrine Endocrinology: Denies cold intolerance or heat intolerance Hematologic/Lymphatic Hematologic/Lymphatic: Denies easy bleeding or easy bruising EXAM Physical Exam Const Vital Signs: 02/06/25 14:40 02/06/25 14:52 Temperature 97.6 F L Temperature Source Oral Pulse Rate 119 H Respiratory Rate 20 H Respiratory Effort Short of Breath Blood Pressure 177/114 H Blood Pressure Mean 135 Pulse Ox 97 Oxygen Delivery Method Room Air Positive well nourished and well developed Constitutional Narrative: BMI is 45.1. Vital signs remarkable for tachycardia and hypertension. Patient does have a history of hypertension. General Appearance ED: well developed and NAD; Negative for cyanotic or diaphoretic HEENT Reports moist mucous membranes normocephalic and atraumatic Eyes PERRL and EOMs intact bilaterally Eyes Narrative: Conjunctive is pink. Neck full ROM and supple Neck Narrative: There are no carotid bruits noted. Resp normal respiratory effort and clear to auscultation bilaterally Cardio regular rhythm, S1 normal heart sound, S2 normal heart sound and no murmurs Rate: tachycardic GI non-tender, non-distended and no masses Auscultation: normoactive bowel sounds Palpation: soft Extremity normal to inspection and full ROM Extremity Narrative: There is no asymmetry, swelling, discoloration, leg vein distention, palpable cords or tenderness along the distribution of the deep venous system. Neuro oriented x3 and CN's II-XII intact bilaterally Sensorium / Orientation: alert Psych Mood & Affect: depressed Skin Skin Narrative: Patient has some redness to both right and left upper extremity. Blanches. There is no hives. MDM MDM MDM Narrative Medical decision making narrative: Patient presents with dyspnea with activity and chest pressure with activity. This resolves with rest. Patient was concerned she may have a PE because she has had a prior history of PE and DVT. With pain radiating to the right arm/extremity observation was 3-1 this was cardiac. Patient is not PERC negative. Differential diagnosis is exertional angina, noncardiac would be PE. Also need to consider GI etiology. Other pulmonary etiology would be pneumonia. This is unlikely. History & Record Review Additional record(s) reviewed:: Prior outpatient record (H&P by Dr. Alejandra Wick for abnormal vaginal bleeding July 2024.) and Prior ED visit (Patient was seen December [address] Hernandez. She had right shoulder pain. Images were obtained and were negative.) Lab Data Attestation: I reviewed the patient's lab results. Lab results narrative: First troponin and 2-hour troponin are both less than 6. CBC is normal. Basic metabolic panel is unremarkable. Glucose is slightly elevated. Will discuss case with Radiography Chest X-Ray - ED: 2 View, Read by ED Physician, Unchanged, Normal, Heart, Mediastinum, Bony Structures, No Acute Disease and Chronic Changes EKG Initial EKG: Attestation: I personally reviewed and interpreted this EKG as follows: Interpretation: Sinus Rhythm (Rate is 99. NH interval is 144 ms. Cures duration 92 ms. QT durations 172 ms. [place] is normal. There is some nonspecific ST-T wave changes. There is no evidence of ST elevation NE.) Management Discussion w/another healthcare provider: Hospitalist (The night hospitalist Dr.Nicholas Tavera was paged.) and Service Tester (Spoke with cardiology. Dr. Jennings is on. He requested CTA in light of patient's history. CTA was performed and reveals no obvious pulmonary embolus. Therefore plan is observation for cardiacworkup. Patient did receive aspirin in the emergency department.) Discharge Plan Dx/Rx/DC Orders Clinical Impression: Chest pain, exertional, Diabetes, Dyspnea on exertion, History of chronic hypertension Disposition Disposition: Acute Care Hospital [facility] What to do if you have Problems For any increased pain, shortness of breath, bleeding, nausea or vomiting, chestpain, or any unexpected problems, contact your Primary Care Provider. Call [facility] ([phone]) or report to the closest Emergency Room. Call 911 if necessary. 02/06/252007 <Electronically signed by Steven Reyes MD> Cosigner Signature (if applicable): CC: Dr. Randy Zhang MD ~ Signed [facility] Work Phone: [phone] History and physical note [facility] Medical Records Department [address] [place] [address] H&P Exam - Hospitalist 02/06/252021 MR#: [id number] Acct: [id number] Name: SILVIA DIXON Rep #:[id number] : 1975 49 From: Cristopher ceron MD PCP: Dr. Randy Zhang MD Status:ADM I NO Location: [place] [address] HPI - General General Date of Admission: 02/06/25 HPI Narrative SILVIA DIXON, is a 49 F who presents to the hospital with chest pain/pressure that started about 2 days ago. She noticed it more with activity and that it would resolve with rest. She was concernedbecause it felt like her previous PEthat she had in 2014. That 1 was provoked while being on a control pill and driving in [place]. She is no longer on anticoagulation. D-dimer was negative and a CTA was still obtained which was also negative for a large PE. Initial troponins were unremarkable, all 3 were less than 6 however she is fairly anxious about her chest pain and would like to stay overnight. Will planfor a stress test in the morning. She does state that the pain radiates down her right arm. [facility] Medical History Wears contact lenses Wears glasses Cancer Depression Anxiety Arthritis Migraine headache History of hiatal hernia Gastric reflux Non-smoker History of stress test History of echocardiogram Hypertension Diabetes Leg pain Anxiety and depression History of breast cancer Pulmonary embolism Home Medications ?Medication ?Instructions ?Recorded ?Last Taken ?Type multivitamin with folic acid 400 1 tab PO DAILY 01/05/25 History mcg tablet omeprazole 20 mg capsule,delayed 20 mg PO BID 02/17/14 01/05/25 History release metformin 500 mg tablet 500 mg PO BID 06/22/2201/05 History ascorbate calcium (vitamin C) 500 500 mg PO DAILY 05/1301/05/25 History mg tablet sucralfate 1 gram tablet (Carafate) 1 g PO BID 4 01/05/25 History bupropion HCl 150 mg tablet,12 hr 150 mg PO DAILY 07/1301/05/25 History sustained-release calcium 250 mg (as 1 tab PO BID 07/24/24 History carbonate)-vitamin D3 3.125 mcg (125 unit) tablet hydrochlorothiazide 25 mg tablet 25 mg PO DAILY 01/05/25 History losartan 100 mg tablet 100 mg PO DAILY 07/24/24 History venlafaxine 150 mg 150 mg PO DAILY 07/24/24 History capsule,extended release 24 hr dulaglutide 0.75 mg/0.5 mL 0.75 mg subcut QWEEK 02/02/25 History subcutaneous pen injector (Trulicity) metformin 500 mg tablet,extended 500 mg PO BID 5 Unknown History release 24 hr Allergy/AdvReac Type Severity Reaction Status Date / Time ketorolac tromethamine (From Allergy Hives Verified 02/06/25 14:40 Toradol) nitrofurantoin Allergy Hives Verified 02/06/25 14:40 Family History Mother A-fib CVA (cerebral vascular accident) Father A-fib Grandmother Breast cancer Surgical History S/P endometrial ablation Hx of bilateral breast reduction surgery History of bilateral breast reduction surgery Hx of tubal ligation History of lumpectomy History of mastectomy Social History number of children: 2 current occupational status: unemployed Smoking Status: Never smoker alcohol intake: never substance use type: does not use caffeine: Yes what type of physical activity do you participate in: walking seatbelt use: always do you feel safe at home: Yes 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 Constitutional Constitutional: Denies chills, fatigue, fever(s) or malaise Eyes Eyes: Denies blurry vision ENT HEENT: Denies headache(s) or nasal discharge Cardiovascular Cardiovascular: Reports chest pain and dyspnea on exertion; Denies syncope Respiratory/Chest Respiratory/Chest: Denies cough, shortness of breath at rest or shortness of breath with exertion Gastrointestinal Gastrointestinal: Denies constipation, diarrhea, nausea or vomiting Genitourinary Genitourinary: Denies dysuria Neurologic Neurologic: Denies focal weakness, numbness or tremor(s) Psychiatric Psychiatric: Denies anxiety or depression Vital Signs Vital Signs Vital Signs: 02/06/25 14:40 02/06/25 14:52 02/06/25 16:35 Temperature 97.6 F L Temperature Source Oral Pulse Rate 119 H 103 H Respiratory Rate 20 H 23 H Respiratory Effort Short of Breath Blood Pressure 177/114 H Blood Pressure Mean 135 Pulse Ox 97 95 Oxygen Delivery Method Room Air 02/06/25 16:39 02/06/25 17:00 02/06/25 17:30 Temperature Temperature Source Pulse Rate 103 H 105 H 102 H Respiratory Rate 23 H 24 H 23 H Respiratory Effort Blood Pressure 133/99 H 141/100 H Blood Pressure Mean 110 114 Pulse Ox 94 96 95 Oxygen Delivery Method Room Air Room Air 02/06/25 18:00 02/06/25 18:00 02/06/25 18:00 Temperature Temperature Source Pulse Rate 106 H Respiratory Rate 24 H Respiratory Effort Blood Pressure 132/86 H 134/86 H 134/86 H Blood Pressure Mean 101 100 100 Pulse Ox 95 Oxygen Delivery Method Room Air 02/06/25 18:00 02/06/25 18:31 02/06/25 19:00 Temperature Temperature Source Pulse Rate 106 H 98 98 Respiratory Rate 18 20 H 20 H Respiratory Effort Blood Pressure 134/86 H 136/93 H Blood Pressure Mean 100 107 Pulse Ox 97 97 98 Oxygen Delivery Method Room Air 02/06/25 19:30 02/06/25 20:00 02/06/25 20:12 Temperature 98 F Temperature Source Pulse Rate 101 H 99 98 Respiratory Rate 16 19 H 20 H Respiratory Effort Blood Pressure 151/113 H 151/113 H Blood Pressure Mean 126 125 Pulse Ox 97 Oxygen Delivery Method Weight Weight: 279 lb 4.8 oz Body Mass Index (BMI) 45.1 Physical Exam Narrative General: Alert, Oriented x3, Cooperative, No apparent distress, morbid obesity HEENT: Atraumatic, PERRLA, EOMI, Normocephalic Oral: Moist Mucosa Neck: Supple, No JVD Lungs: Diminished, Normal air movement, No rhonchi, No wheeze, No rales Cardiovascular: Tachycardic, Regular Rhythm, Normal S1, Normal S2, No murmurs Abdomen: Soft, Non Tender, Non-Distended, No Hepato-splenomegaly Extremities: No edema, Capillary Refill Less than 3 Seconds Skin: No rashes, No breakdown Musculoskeletal: No Tenderness to Palpation of Joints or Extremities Neurological: No focal neurological deficits, Motor Exam 5/5 strength throughout, Sensory exam intact to light touch and pain Psych/Mental Status: Normal Affect, Appropriate Results Lab / Micro Data 02/06/25 15:14 02/06/25 15:14 Labs: Laboratory Results - last 24 hr 02/06/25 15:14: WBC 8.3, RBC 4.89, Hgb 14.2, Hct 42.2, MCV 86.3, MCH 29.0, MCHC 33.6, RDW Std Deviation 42.9, RDW Coeff of Casie 13.7, Plt Count 331, MPV 9.7, Immature Gran % (Auto) 0.500, Neut % (Auto) 50.3, Lymph % (Auto) 39.4, Swain % (Auto) 7.3, Eos % (Auto) 1.8, Baso % (Auto) 0.7, Absolute Neuts (auto) 4.2, Absolute Lymphs (auto) 3.25, Nucleated RBC % 0, D-Dimer Quant (PE/DVT) Cancelled, [id number], Potassium 3.5, Chloride 102, Carbon Dioxide 23.0, Anion Gap 14, BUN 9, Creatinine 0.69 L, Estim Creat Clear Calc 137.25, Est GFR (MDRD) Non-Af 108, BUN/Creatinine Ratio 13.0, Glucose 111 H, Calcium 9.7, Troponin T High Sens < 6 02/06/25 16:19: D-Dimer Quant (PE/DVT) < 0.27 L 02/06/25 17:13: Troponin T Hi Sens 2 Hr < 6 02/06/25 19:14: Troponin T Hi Sens 4Hr < 6 Imaging Radiology Impression Chest X-Ray 02/06/25 14:57 IMPRESSION: No acute cardiopulmonary process. Reading Location: [facility] Chest CTA 02/06/25 18:17 IMPRESSION: LIMITED. NO LARGE CENTRAL PULMONARY EMBOLI. Reading [facility] Assessment & Plan Assessment/Plan (1) Chest pain, exertional: PLAN: Plan 1. Chest pain rule out/essential HTN ? Blood pressures are little bit elevated but that is due to stress she states, will continue with her home blood pressure medications ? Will check a lipid panel in the morning ? Will plan for stress test, her troponins were all negative 2. Anxiety/depression ? Stable ? Continue with her home medications 3. DM2/morbid obesity ? She is on Trulicity which we will hold ? Blood sugars currently are stable and I do anticipate discharge by tomorrow afternoon so we will place her on a cardiac diet and she can resume her home medications on discharge ? BMI 45.1 4. GERD ? Stable ? Continue with her PPI and Carafate DVT: Ambulation Charges/Coding Visit Charges Inpatient E&M: 65313 Init Hosp L2 02/06/252050 Cosigner Signature (if applicable): CC: Dr. Cristopher Tavera MD; Dr. Randy Zhang MD~ Signed [facility]05-28-2025 Discharge summary [facility] Medical Records Department [address] [place] [address] Emergency Department Summary 02/06/25 MR#: [id number] Acct: [id number] Name: SILVIA DIXON Rep #:[id number] : 1975 49 From: Steven Reyes MD PCP: Dr. Randy Zhang MD Status:REG E R Location: ED HPI History of Present Illness Chief Complaint: Upper Extremity Injury Detail of Chief Complaint: Patient presented because of right upper extremity pain per triage. HPI na Informant: patient Occured/Mechanism Comment: Patient having exertional dyspnea, chest pressure and right arm discomfort Onset/Context/Timing Onset: Days (Symptoms started 2 days ago) Context: Sudden Onset Timing: Intermittent Quality of Pain: - (The right upper extremity is achy and has chest pressure) Location: Right medial and right arm Current Severity: Gone Maximum Severity: Moderate Worsened by: Activity, walking up an incline Relieved by: 5 to 10 minutes after resting Associated Symptoms Associated Symptoms: Negative for Parasthesia, Weakness or Loss of Funtion Narrative Narrative: Patient is a 49-year-old woman. She has history of hypertension since 2011, type 2 diabetes for thepast 3 years who presents with right arm pain per triage. Patient concern is that she has had shortness of breath with activity for the past 2 days. She does experience chest pressure with the activity. Thechest pressure resolves after she rest. Takes approximately 10 minutes to resolve. She does report pain radiating to her right upper extremity and through to her back. Her past history is also remarkable for DVT and PE. She is present on no anticoagulant. She has no known history of coronary artery disease. There is no record of stress test. Patient denies orthopnea or PND. Patient denies leg pain, swelling discoloration. She denies nausea, vomiting or diarrhea. She denies abdominal pain. She denies pleuritic chest pain. Patient has allergy to ketorolac. She has taken aspirin in the past with no reaction. Prior similar symptoms: No Recent Illness/Hospitalization: No PFSH PFS Medical History Wears contact lenses Wears glasses Cancer Depression Anxiety Arthritis Migraine headache History of hiatal hernia Gastric reflux Non-smoker History of stress test History of echocardiogram Hypertension Diabetes Leg pain Anxiety and depression History of breast cancer Pulmonary embolism Home Medications ?Medication ?Instructions ?Recorded ?Last Taken ?Type multivitamin with folic acid 400 1 tab PO DAILY 01/05/25 History mcg tablet omeprazole 20 mg capsule,delayed 20 mg PO BID 02/17/14 01/05/25 History release dulaglutide 1.5 mg/0.5 mL 1.5 mg subcut QWEEK 06/22/22 01/02/25 History subcutaneous pen injector (Trulicity) metformin 500 mg tablet 500 mg PO BID 06/22/2201/05 History ascorbate calcium (vitamin C) 500 500 mg PO DAILY 05/1301/05/25 History mg tablet naproxen 500 mg tablet 500 mg PO BID PRN pain #30 t abs 11/25/23 Unknown Rx sucralfate 1 gram tablet (Carafate) 1 g PO BID 4 01/05/25 History bupropion HCl 150 mg tablet,12 hr 150 mg PO DAILY 07/1301/05/25 History sustained-release calcium 250 mg (as 1 tab PO BID 07/24/24 History carbonate)-vitamin D3 3.125 mcg (125 unit) tablet hydrochlorothiazide 25 mg tablet 25 mg PO DAILY 01/05/25 History losartan 100 mg tablet 100 mg PO DAILY 07/24/24 History venlafaxine 150 mg 150 mg PO DAILY 07/24/24 History capsule,extended release 24 hr oxycodone 5 mg tablet 5 mg PO Q12H PRN pain 2 days #4 01/05/25 Unknown Rx tabs prednisone 20 mg tablet 40 mg (2 x 20 mg) PO DAILY # 10 tabs 01/05/25 Unknown Rx Allergy/AdvReac Type Severity Reaction Status Date / Time ketorolac tromethamine (From Allergy Hives Verified 02/06/25 14:40 Toradol) nitrofurantoin Allergy Hives Verified 02/06/25 14:40 Family History Mother A-fib CVA (cerebral vascular accident) Father A-fib Grandmother Breast cancer Surgical History S/P endometrial ablation Hx of bilateral breast reduction surgery History of bilateral breast reduction surgery Hx of tubal ligation History of lumpectomy History of mastectomy Social History number of children: 2 current occupational status: unemployed Smoking Status: Never smoker alcohol intake: never substance use type: does not use caffeine: Yes what type of physical activity do you participate in: walking seatbelt use: always do you feel safe at home: Yes additional social history: [employer] Patient is unemployed ROS ROS ED Constitutional Constitutional ED: Denies chills, fever(s), subjective or sweats Eyes Eyes: Denies blurry vision or change in vision ENT ENT ED: Denies ear pain, rhinorrhea or sore throat Cardiovascular Cardiovascular: Reports chest pain; Denies orthopnea, palpitations, paroxysmal nocturnal dyspnea orracing heartbeat Respiratory/Chest Respiratory/Chest: Reports dyspnea and dyspnea on exertion; Denies cough, orthopnea, paroxysmal nocturnal dyspnea or sputum Gastrointestinal Gastrointestinal: Denies abdominal pain, diarrhea, melena or vomiting Genitourinary Genitourinary ED: Denies dysuria, hematuria or urinary frequency Musculoskeletal Musculoskeletal: Reports back pain; Denies neck pain Integumentary Denies rash Neurologic Neurologic: Denies paresthesias or weakness Endocrine Endocrinology: Denies cold intolerance or heat intolerance Hematologic/Lymphatic Hematologic/Lymphatic: Denies easy bleeding or easy bruising EXAM Physical Exam Const Vital Signs: 02/06/25 14:40 02/06/25 14:52 Temperature 97.6 F L Temperature Source Oral Pulse Rate 119 H Respiratory Rate 20 H Respiratory Effort Short of Breath Blood Pressure 177/114 H Blood Pressure Mean 135 Pulse Ox 97 Oxygen Delivery Method Room Air Positive well nourished and well developed Constitutional Narrative: BMI is 45.1. Vital signs remarkable for tachycardia and hypertension. Patient does have a history of hypertension. General Appearance ED: well developed and NAD; Negative for cyanotic or diaphoretic HEENT Reports moist mucous membranes normocephalic and atraumatic Eyes PERRL and EOMs intact bilaterally Eyes Narrative: Conjunctive is pink. Neck full ROM and supple Neck Narrative: There are no carotid bruits noted. Resp normal respiratory effort and clear to auscultation bilaterally Cardio regular rhythm, S1 normal heart sound, S2 normal heart sound and no murmurs Rate: tachycardic GI non-tender, non-distended and no masses Auscultation: normoactive bowel sounds Palpation: soft Extremity normal to inspection and full ROM Extremity Narrative: There is no asymmetry, swelling, discoloration, leg vein distention, palpable cords or tenderness along the distribution of the deep venous system. Neuro oriented x3 and CN's II-XII intact bilaterally Sensorium / Orientation: alert Psych Mood & Affect: depressed Skin Skin Narrative: Patient has some redness to both right and left upper extremity. Blanches. There is no hives. MDM MDM MDM Narrative Medical decision making narrative: Patient presents with dyspnea with activity and chest pressure with activity. This resolves with rest. Patient was concerned she may have a PE because she has had a prior history of PE and DVT. With pain radiating to the right arm/extremity observation was 3-1 this was cardiac. Patient is not PERC n egative. Differential diagnosis is exertional angina, noncardiac would be PE. Also need to considerGI etiology. Other pulmonary etiology would be pneumonia. This is unlikely. History & Record Review Additional record(s) reviewed:: Prior outpatient record (H&P by Dr. Alejandra Wick for abnormal vaginal bleeding July 2024.) and Prior ED visit (Patient was seen December [address] Hernandez. She had right shoulder pain. Images were obtained and were negative.) Lab Data Attestation: I reviewed the patient's lab results. Lab results narrative: First troponin and 2-hour troponin are both less than 6. CBC is normal. Basic metabolic panel is unremarkable. Glucose is slightly elevated. Will discuss case with Radiography Chest X-Ray - ED: 2 View, Read by ED Physician, Unchanged, Normal, Heart, Mediastinum, Bony Structures, No Acute Disease and Chronic Changes EKG Initial EKG: Attestation: I personally reviewed and interpreted this EKG as follows: Interpretation: Sinus Rhythm (Rate is 99. NH interval is 144 ms. Cures duration 92 ms. QT [id number] ms. [place] is normal. There is some nonspecific ST-T wave changes. There is no evidence of ST elevation NE.) Management Discussion w/another healthcare provider: Hospitalist (The night hospitalist Dr.Nicholas Tavera was paged.) and Service Tester (Spoke with cardiology. Dr. Jennings is on. He requested CTA in light of patient's history. CTA was performed and reveals no obvious pulmonary embolus. Therefore plan is observation for cardiacworkup. Patient did receive aspirin in the emergency department.) Discharge Plan Dx/Rx/DC Orders Clinical Impression: Chest pain, exertional, Diabetes, Dyspnea on exertion, History of chronic hypertension Disposition Disposition: Acute Care Hospital [facility] What to do if you have Problems For any increased pain, shortness of breath, bleeding, nausea or vomiting, chestpain, or any unexpected problems, contact your Primary Care Provider. Call [facility] ([phone]) or report tothe closest Emergency Room. Call 911 if necessary. 02/06/252007 Cosigner Signature (if applicable): CC: Dr. Randy Zhang MD ~ Signed [facility]05-28-2025 Radiology Diagnostic study note [facility] Imaging Services [address], [place] [address] CTA Chest W/WO Contrast MR#: [id number] Acct: [id number] Name: SILVIA DIXON Rep #: [id number] : 1975 F 49 From: David Grimm DO PCP: Dr. Randy Zhang MD Status: REG E R Study:CTA Chest W/WO Contrast Date of Exam: 02/06/25 Exam# [id number] Ordering Dr: Kirill Reyes MD PROCEDURE: CTA CHEST W/WO CONTRAST 02/06/2025 REASON FOR EXAM: DYSPNEA WITH EXERTION, HISTORY OF PE TECHNIQUE: CTA axial imaging of the chest with intravenous contrast. Multiplanar and multisequence images wereobtained. 3D post processing was performed PATIENT PREPARATION: Per protocol CONTRAST: Isovue 370 VOLUME: 98 mL Not Provided Gauge IV One or more dose reduction techniques were used (e.g., Automated exposure control, adjustment of the mA and/or kV according to patient size, use of iterative reconstruction technique). RADIATION DOSE SUMMARY: CTDlvol: 32 mGy DLP: 564 mGycm . COMPARISON: None FINDINGS: Hardware: None Lymph nodes: No lymphadenopathy. Heart: Heart size is normal. No pericardial effusion. RV/LV Diameter Ratio: Thoracic Aorta: No thoracic aortic aneurysm or dissection. Pulmonary Vessels: No large central pulmonary emboli are identified. Contrast timing is suboptimal for evaluation of more distal branches. Most Proximal Level of Embolus (if embolus present): Lungs and Airways: The lungs are normally expanded and clear. Pleura: No pleural effusion. No pneumothorax. Upper Abdomen: Visualized portions of the upper abdominal viscera are unremarkable. Bones: Bone windows are unremarkable. CT/CTA Chest W/WO Contrast IMPRESSION: LIMITED. NO LARGE CENTRAL PULMONARY EMBOLI. Reading Location[facility] CC: Dr. Stevne Reyes MD; Dr. Randy Zhang MD ~ Game Master: Signed [facility]05-28-2025 Radiology Diagnostic study note [facility] Imaging Services [address] [place], [place] [id number] Chest PA and Lateral MR#: [id number] Acct: [id number] Name: SILVIA DIXON Rep #: [id number] : 1975 F 49 From: Temi Jamison MD PCP: Dr. Randy Zhang MD Status: REG E R Study:Chest PA and Lateral Date of Exam: 02/06/25 Exam# [id number] Ordering Dr: Kirill Reyes MD EXAM: XR Chest, 2 Views CLINICAL INDICATION: CHEST PAIN TECHNIQUE: Frontal and lateral views of the chest. COMPARISON: No relevant prior studies available. FINDINGS: LUNGS AND PLEURAL SPACES: Unremarkable. No consolidation. No pneumothorax. HEART: Unremarkable. No cardiomegaly. MEDIASTINUM: Unremarkable. Normal mediastinal contour. BONES/JOINTS: Unremarkable. No acute fracture. RAD/Chest PA and Lateral IMPRESSION: No acute cardiopulmonary process. Reading Location: [facility] CC: Dr. Steven Reyes MD; Dr. Randy Zhang MD ~ Game Master: Signed [facility]05-28-2025 NoteHNO ID: [id number] Author: RANDY ZHANG MD Service: ? Author Type: Physician Type: Progress Notes Filed: 02/06/2025 14:25 Note Text: Patient presents with: Arm Pain HPI: Patient presents today for office visit for follow up for persistent right upper arm pain. Was seen in office back on 01/28/25 with complaints of severe right upper arm pain. Refers today to pain feeling like previous blood clot. Some swelling to inside of elbow that comes and goes. Area is painful to touch. Arm may be slightly red. . Had a PE in 2013. Feels similar to that. Has pain that radiates up into the chest. Is more winded. Not necessarily pleuritic. No cough. No travel recently. Was on anticoagulation for a year. See note 01/28/25: Complains today of severe right upper arm pain. Started after lifting a microwave. No bruising or swelling after. Ongoing X 1 month. Describes pain as a squeezing. Comes and goes. Sensation to back side of arm when touched. "Feels weird" Was seen in [facility] ER 01/05/25 for this issue. X-rays negative. Given prednisone and oxycodone with no relief at all. Given PT exercises which she states did not help. No numbness or tingling. Has been sick for 5 days. Complains of being nauseous with a stuffy nose. Some coughing. Has a migraine that she states started today. My throat kind of hurts Denies fever. No shortness of breath. and son are ill. Mild ear discomfort. No vomiting or diarrhea. Using mucinex prn. No covid test. Was to recheck her potassium after her last labs but did not. MEDICATIONS: Current Outpatient Medications Medication Sig tiZANidine (ZANAFLEX) 4 mg tablet Take 1 tablet by mouth every 8 hours as needed (muscle spasms). potassium chloride (K-TAB) 10 mEq tablet Take 1 tablet by mouth once daily. omeprazole (PRILOSEC) 20 mg capsule Take 1 capsule by mouth two times a day. sucralfate (CARAFATE) 1 gram tablet Take 1 tablet by mouth two times a day. venlafaxine ER (EFFEXOR XR) 150 mg 24 hr capsule Take 1 capsule by mouth once daily. (Start week #3). losartan (COZAAR) 100 mg tablet Take 1 tablet by mouth once daily. metFORMIN ER (GLUCOPHAGE XR) 500 mg 24 hr tablet Take 2 tablets by mouth daily with breakfast. hydroCHLOROthiazide 25 mg tablet Take 1 tablet by mouth once daily. dulaglutide (TRULICITY) 0.75 mg/0.5 mL pen injector Inject 0.75 mg subcutaneously one time a week. Inject dose once per week. Discard Pen After buPROPion SR (WELLBUTRIN SR) 150 mg 12 hr tablet Take 1 tablet by mouth once daily. Blood-Glucose Sensor (FREESTYLE ALTHEA 3 SENSOR) roney 1 Each as directed. Ascorbate Calcium 500 mg tab Take by mouth. docusate sodium (COLACE) 100 mg capsule Take 1 capsule by mouth two times a day as needed for constipation. calcium-cholecalciferol, D3, (OSCAL+D 250) 250 mg-3.125 mcg (125 unit) per tablet Take 1 tablet by mouth two times a day. lancets (TRUEPLUS LANCETS) 30 gauge Use with blood glucose test once daily blood sugar diagnostic (TRUE METRIX GLUCOSE TEST STRIP) test strip Use with blood glucose test once daily Blood Pressure Monitor (BLOOD PRESSURE KIT) 1 Each as needed. ibuprofen (ADVIL) 200 mg tablet Take 200 mg by mouth every 6 hours as needed. acetaminophen (TYLENOL) 500 mg tablet Take 1,000 mg by mouth every 8 hours as needed. 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05-28-2025 History of Present illness Narrative* Randy Zhang MD - 02/06/2025 1:45 PM EDT Patient presents with: Arm Pain HPI: Patient presents today for office visit for follow up for persistent right upper arm pain. Was seen in office back on 01/28/25 with complaints of severe right upper arm pain. Refers today to pain feeling like previous blood clot. Some swelling to inside of elbow that comes and goes. Area is painful to touch. Arm may be slightly red. . Had a PE in 2013. Feels similar to that. Has pain that radiates up into the chest. Is more winded. Not necessarily pleuritic. No cough. No travel recently. Was on anticoagulation for a year. See note 01/28/25: Complains today of severe right upper arm pain. Started after lifting a microwave. No bruising or swelling after. Ongoing X 1 month. Describes pain as a squeezing. Comes and goes. Sensation to back side of arm when touched. "Feels weird" Was seen in [facility] ER 01/05/25 for this issue. X-rays negative. Given prednisone and oxycodone with no relief at all. Given PT exercises which she states did not help. No numbness or tingling. Has been sick for 5 days. Complains of being nauseous with a stuffy nose. Some coughing. Has a migraine that she states started today. My throat kind of hurts Denies fever. No shortness of breath. and son are ill. Mild ear discomfort. No vomiting or diarrhea. Using mucinex prn. No covid test. Was to recheck her potassium after her last labs but did not. MEDICATIONS: Current Outpatient Medications Medication Sig tiZANidine (ZANAFLEX) 4 mg tablet Take 1 tablet by mouth every 8 hours as needed (muscle spasms). potassium chloride (K-TAB) 10 mEq tablet Take 1 tablet by mouth once daily. omeprazole (PRILOSEC) 20 mg capsule Take 1 capsule by mouth two times a day. sucralfate (CARAFATE) 1 gram tablet Take 1 tablet by mouth two times a day. venlafaxine ER (EFFEXOR XR) 150 mg 24 hr capsule Take 1 capsule by mouth once daily. (Start week #3). losartan (COZAAR) 100 mg tablet Take 1 tablet by mouth once daily. metFORMIN ER (GLUCOPHAGE XR) 500 mg 24 hr tablet Take 2 tablets by mouth daily with breakfast. hydroCHLOROthiazide 25 mg tablet Take 1 tablet by mouth once daily. dulaglutide (TRULICITY) 0.75 mg/0.5 mL pen injector Inject 0.75 mg subcutaneously one time a week. Inject dose once per week. Discard Pen After buPROPion SR (WELLBUTRIN SR) 150 mg 12 hr tablet Take 1 tablet by mouth once daily. Blood-Glucose Sensor (FREESTYLE ALTHEA 3 SENSOR) roney 1 Each as directed. Ascorbate Calcium 500 mg tab Take by mouth. docusate sodium (COLACE) 100 mg capsule Take 1 capsule by mouth two times a day as needed for constipation. calcium-cholecalciferol, D3, (OSCAL+D 250) 250 mg-3.125 mcg (125 unit) per tablet Take 1 tablet by mouth two times a day. lancets (TRUEPLUS LANCETS) 30 gauge Use with blood glucose test once daily blood sugar diagnostic (TRUE METRIX GLUCOSE TEST STRIP) test strip Use with blood glucose test oncedaily Blood Pressure Monitor (BLOOD PRESSURE KIT) 1 Each as needed. ibuprofen (ADVIL) 200 mg tablet Take 200 mg by mouth every 6 hours as needed. acetaminophen (TYLENOL) 500 mg tablet Take 1,000 mg by mouth every 8 hours as needed. 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, s/p excisional biopsy, neoadjuvant chemotherapy, partial mastectomy and oncoplasticbreast reduction, and sentinel node biopsy, s/p radiation [...] LIG/TRNSXJ FLP TUBE ABDL/VAG APPR UNI/BI 11/27/2001 tubes tied MASTECTOMY, PARTIAL Left 04/12/2013 PAST SURGICAL HISTORY OF 11/12/2012 left breast lumpectomy REDUCTION OF LARGE BREAST Bilateral Breast reduction FAMILY HISTORY Problem Relation Age of Onset Diabetes Father Heart Father 54 heart attack, CHF 2017 Hypertension Father A-Fib Stroke Father 57 Obesity Father other (Congestive Heart Failure) Father Hypertension Mother A fib Stroke Mother 60 severe and has fully recovered Osteoporosis Mother Heart Maternal Grandfather CHF and Enlarged Heart Cancer Maternal Grandmother bone cancer Diabetes Maternal Grandmother Breast Cancer Maternal Grandmother 78 Heart Paternal Grandfather NE Diabetes Paternal Grandmother other (Lung Problems) Paternal Grandmother other (Rapid Airway Disease) Son Anesthesia Problems No Family History Social History Tobacco Use Smoking status: Never Smokeless tobacco: Never Vaping Use Vaping status: Never Used Substance Use Topics Alcohol use: Yes Comment: Seldom. a couple times a year Drug use: No Reviewed current medications, allergies, past medical history, surgical history, family history andsocial history today. REVIEW OF SYSTEMS All other reviewed and negative other than HPI. VITALS: BP 114/78 Pulse 116 Ht 167.6 cm (5' 6") Wt 126.7 kg (279 lb 6.4 oz) LMP 06/18/2024 (Exact Date) SpO2 96% BMI 45.10 kg/m Last 4 Encounter Wt Readings: Date: Wt: 01/28/2025 126.6 kg (279 lb 3.2 oz) 12/27/2024 125.9 kg (277 lb 9 oz) 10/31/2024 125.6 kg (277 lb) 10/15/2024 123.8 kg (273 lb) PHYSICAL EXAMINATION: General appearance: Well appearing, alert, in no acute distress, well-hydrated, well nourished. Skin: Skin color, texture, turgor normal, no suspicious rashes or lesions Head: Normocephalic, no masses, lesions, tenderness or abnormalities Slightly tender on chest wall on the right. Lungs: Lungs clear to auscultation. No wheezing, rhonchi, rales Heart: RRR without murmur, gallop, or rubs. No ectopy Abdomen: Normal abdominal exam, Abdomen soft, non-tender. Bowel sounds normal. No masses, organomegaly Extremities: mild edema of right arm. ASSESSMENT/PLAN: 1. Right-sided chest pain - ICD9: 786.50, ICD10: R07.9 (primary diagnosis) - given fact it feel identical to her previous PE, she likely needs imaging that I cannot get todayin the afternoon. To [facility] ER. Will send with notes. 2. Personal history of pulmonary embolism - ICD9: V12.55, ICD10: Z86.711 -as above. 3. Pain of right upper extremity - ICD9: 729.5, ICD10: M79.601 - as above., Randy Zhang MD documented [facility]05-24-[facility] Telephone encounter Note * Telephone Encounter - Shanta Anderson MA - 02/02/2025 8:54 AM EDT Prescription Refill Information The patient has been identified by name and date of : Yes Caregiver verified no other encounters exist for this prescription request: Yes Caregiver confirmed with patient/requestor that no other refills are due, in the near future, with this provider at this time: No The last office visit in the department: 01/28/25 Does the patient have a future office visit with this provider/department: Yes Requested Prescriptions Pending Prescriptions Disp Refills tiZANidine (ZANAFLEX) 4 mg tablet 30 tablet 1 Sig: Take 1 tablet by mouth every 8 hours as needed (muscle spasms). Shanta Anderson MA February 02, 2025 8:54 AM [facility]05-24-[facility] Miscellaneous Notes* Telephone Encounter - Shanta Anderson MA - 02/02/2025 8:54 AM EDT Prescription Refill Information The patient has been identified by name and date of : Yes Caregiver verified no other encounters exist for this prescription request: Yes Caregiver confirmed with patient/requestor that no other refills are due, in the near future, with this provider at this time: No The last office visit in the department: 01/28/25 Does the patient have a future office visit with this provider/department: Yes Requested Prescriptions Pending Prescriptions Disp Refills tiZANidine (ZANAFLEX) 4 mg tablet 30 tablet 1 Sig: Take 1 tablet by mouth every 8 hours as needed (muscle spasms). Shanta Anderson MA February 02, 2025 8:54 AM documented in this encounterMercy Health05-19-2025 NoteHNO ID: [id number] Author: RANDY ZHANG MD Service: ? Author Type: Physician Type: Progress Notes Filed: 01/28/2025 14:24 Note Text: Patient presents with: Arm Pain acute illness HPI: Patient presents today for office visit for multiple concerns. Complains today of severe right upper arm pain. Started after lifting a microwave. No bruising or swelling after. Ongoing X 1 month. Describes pain as a squeezing. Comes and goes. Sensation to back side of arm when touched. "Feels weird" Was seen in [facility] ER 01/05/25 for this issue. X-rays negative. Given prednisone and oxycodone with no relief at all. Given PT exercises which she states did not help. No numbness or tingling. Has been sick for 5 days. Complains of being nauseous with a stuffy nose. Some coughing. Has a migraine that she states started today. My throat kind of hurts Denies fever. No shortness of breath. and son are ill. Mild ear discomfort. No vomiting or diarrhea. Using mucinex prn. No covid test. Was to recheck her potassium after her last labs but did not. Latest Ref Rng 10/15/2024 WBC 3.70 - 11.00 k/uL 10.17 RBC 3.90 - 5.20 m/uL 5.14 Hemoglobin 11.5 - 15.5 g/dL 14.4 Hematocrit 36.0 - 46.0 % 45.1 MCV 80.0 - 100.0 fL 87.7 MCH 26.0 - 34.0 pg 28.0 MCHC 30.5 - 36.0 g/dL 31.9 RDW-CV 11.5 - 15.0 % 13.8 Platelet Count 150 - 400 k/uL 282 MPV 9.0 - 12.7 fL 10.5 Neut% % 57.6 Abs Neut (ANC) 1.45 - 7.50 k/uL 5.86 Lymph% % 34.4 Abs Lymph 1.00 - 4.00 k/uL 3.50 Swain% % 5.6 Abs Swain <0.87 k/uL 0.57 Eosin% % 1.2 Abs Eosin <0.46 k/uL 0.12 Baso% % 0.8 Abs Baso <0.11 k/uL 0.08 Immature Gran % % 0.4 IMMATURE GRANS (ABS) <0.10 k/uL 0.04 NRBC /100 WBC 0.0 Absolute nRBC <0.01 k/uL <0.01 DTYPE Auto Protein, Total 6.3 - 8.0 g/dL 7.6 Albumin 3.9 - 4.9 g/dL 4.1 Calcium 8.5 - 10.2 mg/dL 10.0 Bilirubin, Total 0.2 - 1.3 mg/dL 0.7 Alkaline Phosphatase 34 - 123 U/L 78 AST 13 - 35 U/L 16 ALT 7 - 38 U/L 21 Glucose 74 - 99 mg/dL 100 (H) BUN 7 - 21 mg/dL 8 Creatinine 0.58 - 0.96 mg/dL 0.65 Sodium 136 - 144 mmol/L 137 Potassium 3.7 - 5.1 mmol/L 3.4 (L) Chloride 98 - 107 mmol/L 99 CO2 22 - 30 mmol/L 27 Anion Gap 8 - 15 mmol/L 11 eGFR >=60 mL/min/1.73m? 109 Total Cholesterol, Nonfasting <200 mg/dL 202 (H) Triglycerides, Nonfasting <150 mg/dL 287 (H) HDL Cholesterol, Nonfasting >39 mg/dL 46 LDL Cholesterol Calculated, Nonfasting <100 mg/dL 99 Non HDL Cholesterol, Nonfasting <130 mg/dL 156 (H) VLDL Cholesterol, Nonfasting <30 mg/dL 57 (H) Total Chol/HDL Ratio, Nonfasting <5.10 mg/dL 4.39 LDL/HDL Ratio, Nonfasting <2.54 mg/dL 2.15 Hemoglobin A1C 4.3 - 5.6 % 5.6 Estimated Average Glucose mg/dL 114 Legend: (H) High (L) Low MEDICATIONS: Current Outpatient Medications Medication Sig omeprazole (PRILOSEC) 20 mg capsule Take 1 capsule by mouth two times a day. sucralfate (CARAFATE) 1 gram tablet Take 1 tablet by mouth two times a day. venlafaxine ER (EFFEXOR XR) 150 mg 24 hr capsule Take 1 capsule by mouth once daily. (Start week #3). losartan (COZAAR) 100 mg tablet Take 1 tablet by mouth once daily. metFORMIN ER (GLUCOPHAGE XR) 500 mg 24 hr tablet Take 2 tablets by mouth daily with breakfast. hydroCHLOROthiazide 25 mg tablet Take 1 tablet by mouth once daily. dulaglutide (TRULICITY) 0.75 mg/0.5 mL pen injector Inject 0.75 mg subcutaneously one time a week. Inject dose once per week. Discard Pen After buPROPion SR (WELLBUTRIN SR) 150 mg 12 hr tablet Take 1 tablet by mouth once daily. Blood-Glucose Sensor (FREESTYLE ALTHEA 3 SENSOR) roney 1 Each as directed. tiZANidine (ZANAFLEX) 4 mg tablet Take 1 tablet by mouth every 8 hours as needed (muscle spasms). Ascorbate Calcium 500 mg tab Take by mouth. docusate sodium (COLACE) 100 mg capsule Take 1 capsule by mouth two times a day as needed for constipation. calcium-cholecalciferol, D3, (OSCAL+D 250) 250 mg-3.125 mcg (125 unit) per tablet Take 1 tablet by mouth two times a day. lancets (TRUEPLUS LANCETS) 30 gauge Use with blood glucose test once daily blood sugar diagnostic (TRUE METRIX GLUCOSE TEST STRIP) test strip Use with blood glucose test once daily Blood Pressure Monitor (BLOOD PRESSURE KIT) 1 Each as needed. ibuprofen (ADVIL) 200 mg tablet Take 200 mg by mouth every 6 hours as needed. acetaminophen (TYLENOL) 500 mg tablet Take 1,000 mg by mouth every 8 hours as needed. elderberry fruit (ELDERBERRY ORAL) Take 1,000 mg [...] Other: See Comments Toradol [Ketorolac * Hives (more content not included)...[facility]05-19-2025 History of Present illness Narrative* Randy Zhang MD - 01/28/2025 1:52 PM EDT Patient presents with: Arm Pain acute illness HPI: Patient presents today for office visit for multiple concerns. Complains today of severe right upper arm pain. Started after lifting a microwave. No bruising or swelling after. Ongoing X 1 month. Describes pain as a squeezing. Comes and goes. Sensation to back side of arm when touched. "Feels weird" Was seen in [facility] ER 01/05/25 for this issue. X-rays negative. Given prednisone and oxycodone with no relief at all. Given PT exercises which she states did not help. No numbness or tingling. Has been sick for 5 days. Complains of being nauseous with a stuffy nose. Some coughing. Has a migraine that she states started today. My throat kind of hurts Denies fever. No shortness of breath. and son are ill. Mild ear discomfort. No vomiting or diarrhea. Using mucinex prn. No covid test. Was to recheck her potassium after her last labs but did not. Latest Ref Rng 10/15/2024 WBC 3.70 - 11.00 k/uL 10.17 RBC 3.90 - 5.20 m/uL 5.14 Hemoglobin 11.5 - 15.5 g/dL 14.4 Hematocrit 36.0 - 46.0 % 45.1 MCV 80.0 - 100.0 fL 87.7 MCH 26.0 - 34.0 pg 28.0 MCHC 30.5 - 36.0 g/dL 31.9 RDW-CV 11.5 - 15.0 % 13.8 Platelet Count 150 - 400 k/uL 282 MPV 9.0 - 12.7 fL 10.5 Neut% % 57.6 Abs Neut (ANC) 1.45 - 7.50 k/uL 5.86 Lymph% % 34.4 Abs Lymph 1.00 - 4.00 k/uL 3.50 Swain% % 5.6 Abs Swain <0.87 k/uL 0.57 Eosin% % 1.2 Abs Eosin <0.46 k/uL 0.12 Baso% % 0.8 Abs Baso <0.11 k/uL 0.08 Immature Gran % % 0.4 IMMATURE GRANS (ABS) <0.10 k/uL 0.04 NRBC /100 WBC 0.0 Absolute nRBC <0.01 k/uL <0.01 DTYPE Auto Protein, Total 6.3 - 8.0 g/dL 7.6 Albumin 3.9 - 4.9 g/dL 4.1 Calcium 8.5 - 10.2 mg/dL 10.0 Bilirubin, Total 0.2 - 1.3 mg/dL 0.7 Alkaline Phosphatase 34 - 123 U/L 78 AST 13 - 35 U/L 16 ALT 7 - 38 U/L 21 Glucose 74 - 99 mg/dL 100 (H) BUN 7 - 21 mg/dL 8 Creatinine 0.58 - 0.96 mg/dL 0.65 Sodium 136 - 144 mmol/L 137 Potassium 3.7 - 5.1 mmol/L 3.4 (L) Chloride 98 - 107 mmol/L 99 CO2 22 - 30 mmol/L 27 Anion Gap 8 - 15 mmol/L 11 eGFR >=60 mL/min/1.73m 109 Total Cholesterol, Nonfasting <200 mg/dL 202 (H) Triglycerides, Nonfasting <150 mg/dL 287 (H) HDL Cholesterol, Nonfasting >39 mg/dL 46 LDL Cholesterol Calculated, Nonfasting <100 mg/dL 99 Non HDL Cholesterol, Nonfasting <130 mg/dL 156 (H) VLDL Cholesterol, Nonfasting <30 mg/dL 57 (H) Total Chol/HDL Ratio, Nonfasting <5.10 mg/dL 4.39 LDL/HDL Ratio, Nonfasting <2.54 mg/dL 2.15 Hemoglobin A1C 4.3 - 5.6 % 5.6 Estimated Average Glucose mg/dL 114 Legend: (H) High (L) Low MEDICATIONS: Current Outpatient Medications Medication Sig omeprazole (PRILOSEC) 20 mg capsule Take 1 capsule by mouth two times a day. sucralfate (CARAFATE) 1 gram tablet Take 1 tablet by mouth two times a day. venlafaxine ER (EFFEXOR XR) 150 mg 24 hr capsule Take 1 capsule by mouth once daily. (Start week #3). losartan (COZAAR) 100 mg tablet Take 1 tablet by mouth once daily. metFORMIN ER (GLUCOPHAGE XR) 500 mg 24 hr tablet Take 2 tablets by mouth daily with breakfast. hydroCHLOROthiazide 25 mg tablet Take 1 tablet by mouth once daily. dulaglutide (TRULICITY) 0.75 mg/0.5 mL pen injector Inject 0.75 mg subcutaneously one time a week. Inject dose once per week. Discard Pen After buPROPion SR (WELLBUTRIN SR) 150 mg 12 hr tablet Take 1 tablet by mouth once daily. Blood-Glucose Sensor (FREESTYLE ALTHEA 3 SENSOR) roney 1 Each as directed. tiZANidine (ZANAFLEX) 4 mg tablet Take 1 tablet by mouth every 8 hours as needed (muscle spasms). Ascorbate Calcium 500 mg tab Take by mouth. docusate sodium (COLACE) 100 mg capsule Take 1 capsule by mouth two times a day as needed for constipation. calcium-cholecalciferol, D3, (OSCAL+D 250) 250 mg-3.125 mcg (125 unit) per tablet Take 1 tablet by mouth two times a day. lancets (TRUEPLUS LANCETS) 30 gauge Use with blood glucose test once daily blood sugar diagnostic (TRUE METRIX GLUCOSE TEST STRIP) test strip Use with blood glucose test oncedaily Blood Pressure Monitor (BLOOD PRESSURE KIT) 1 Each as needed. ibuprofen (ADVIL) 200 mg tablet Take 200 mg by mouth every 6 hours as needed. acetaminophen (TYLENOL) 500 mg tablet Take 1,000 mg by mouth every 8 hours as needed. 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, s/p excisional biopsy, neoadjuvant chemotherapy, partial mastectomy and oncoplasticbreast reduction, and sentinel node biopsy, s/p radiation [...] LIG/TRNSXJ FLP TUBE ABDL/VAG APPR UNI/BI 11/27/2001 tubes tied MASTECTOMY, PARTIAL Left 04/12/2013 PAST SURGICAL HISTORY OF 11/12/2012 left breast lumpectomy REDUCTION OF LARGE BREAST Bilateral Breast reduction FAMILY HISTORY Problem Relation Age of Onset Diabetes Father Heart Father 54 heart attack, CHF 2016 Hypertension Father A-Fib Stroke Father 57 Obesity Father other (Congestive Heart Failure) Father Hypertension Mother A fib Stroke Mother 60 severe and has fully recovered Osteoporosis Mother Heart Maternal Grandfather CHF and Enlarged Heart Cancer Maternal Grandmother bone cancer Diabetes Maternal Grandmother Breast Cancer Maternal Grandmother 78 Heart Paternal Grandfather NE Diabetes Paternal Grandmother other (Lung Problems) Paternal Grandmother other (Rapid Airway Disease) Son Anesthesia Problems No Family History Social History Tobacco Use Smoking status: Never Smokeless tobacco: Never Vaping Use Vaping status: Never Used Substance Use Topics Alcohol use: Yes Comment: Seldom. a couple times a year Drug use: No Reviewed current medications, allergies, past medical history, surgical history, family history andsocial history today. REVIEW OF SYSTEMS All other reviewed and negative other than HPI. VITALS: BP 120/88 Pulse 103 Temp 36.6 C (97.8 F) Ht 167.6 cm (5' 6") Wt 126.6 kg (279 lb 3.2 oz) LMP 06/18/2024 (Exact Date) SpO2 96% BMI 45.06 kg/m Last 4 Encounter Wt Readings: Date: Wt: 12/27/2024 125.9 kg (277 lb 9 oz) 10/31/2024 125.6 kg (277 lb) 10/15/2024 123.8 kg (273 lb) 07/19/2024 127.9 kg (282 lb) PHYSICAL EXAMINATION: General appearance: Well appearing, [...] discoloration, clubbing or cyanosis. Good capillary refill. Normal range of motion. Seems tender more near the triceps today ASSESSMENT/PLAN: 1. Acute pain of right shoulder - ICD9: 719.41, ICD10: M25.511 (primary diagnosis) - ice and rest. Xray in er negative. Failed steroids and home exercises. To ortho - CONSULT TO ORTHOPAEDICS 2. 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eft breast in female, estrogen receptor positive (HCC) - ICD9: 174.4, V86.0, ICD10: C50.412, Z17.0 - xray was ok. 3. Primary hypertension - ICD9: 401.9, ICD10: I10 - Controlled - Continue current medications 4. Family history of ischemic heart disease - ICD9: V17.3, ICD10: Z82.49 - stable. 5. Type 2 diabetes mellitus with hyperglycemia, without long-term current use of insulin (HCC) - ICD9: 250.00, 790.29, ICD10: E11.65 - has follow up in April 17. Lymphedema - ICD9: 457.1, ICD10: I89.0 - stable 7. URI, acute - ICD9: 465.9, ICD10: J06.9 - Discussed viral etiology and rationale for treatment. - Symptomatic treatment with prn analgesia - Supportive care with fluids and rest - BENZONATATE 100 MG CAPSULE 8. Hypokalemia - ICD9: 276.8, ICD10: E87.6 - POTASSIUM Randy Zhang MD documented in this encounterMercy Health04-26-2025 Radiology Diagnostic study note [facility] Imaging Services [address], [place] [id number] Shoulder min 2 Views MR#: [id number] Acct: [id number] Name: SILVIA DIXON Rep #: [id number] : 1975 F 49 From: Temi Jamison MD PCP: Dr. Randy Zhang MD Status: PRE E R Study:Shoulder min 2 Views Date of Exam: 01/05/25 Exam# [id number] Ordering Dr: Sonja Hernandez DO EXAM: XR Right Shoulder Complete, 2 or More Views CLINICAL INDICATION: PAIN TECHNIQUE: Two or more views of the right shoulder. COMPARISON: No relevant prior studies available. FINDINGS: BONES/JOINTS: Mild degenerative changes of the acromioclavicular and glenohumeral joints. No acute fracture. No dislocation. SOFT TISSUES: Unremarkable. RAD/Shoulder min 2 Views IMPRESSION: 1. Degenerative changes as above. 2. If symptoms persist, further evaluation with MRI is recommended. Reading Location: [id number] CC: Dr. Ashwini Hernandez DO; Dr. Randy Zhang MD ~ Game Master: Signed [facility]04-17-2025 Telephone encounter Note* Telephone Encounter - Carlito Jose - 12/27/2024 3:45 PM EDT Thank you Jahaira! [facility] Work Phone: [phone] Miscellaneous Notes* Telephone Encounter - Carlito Jose - 12/27/2024 3:45 PM EDT Thank you Jahaira! * Telephone Encounter - Ernie Roberson Rosa Maria - 12/27/2024 3:02 PM EDT Patient is calling Dr Dugan office herself * Telephone Encounter - Maury Karol Carlito - 12/27/2024 2:41 PM EDT 12/27 AVS- Needs appt. Dr. Stevenson/[facility]. - Follow up in 6 months.- done - Pt. aware to call office with any questions/concerns. Jahaira, was patient contacting Dr. Dugan's office to schedule? documented in this encounter[facility]04-17-2025 Telephone encounter Note * Telephone Encounter - Dewaynesivan Karol Rosa Maria - 12/27/2024 3:02 PM EDT Patient is calling Dr Dugan office herself [facility] Work Phone: [phone] 212-564804-17-2025 Telephone encounter Note* Telephone Encounter - Maury KarolHansaCarlito - 12/27/2024 2:41 PM EDT 12/27 AVS- Needs appt. Dr. Stevenson/Y[place]ande. - Follow up in 6 months.- done - Pt. aware to call office with any questions/concerns. Jahaira, was patient contacting Dr. Dugan's office to schedule? [facility]04-17-2025 NoteHNO ID: [id number] Author: KAITLIN MANUEL APRN.ALLAN Service: ? Author Type: Nurse Practitioner Type: Progress Notes Filed: 12/27/2024 13:56 Note Text: Chief Complaint Patient presents with: Established Patient HPI: Silvia Dixon is a 49 year old female who presents here today [...] the first of the year. Presented to 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 at [facility] and was referred here [...] elements including chondroid matrix production, see comment. JJRoberta/paulino 11/24/2012 COMMENT Specimen Laterality: Left Procedure: Type: [...] LMP 12/2012. Pt. was on vacation in [facility] and had a large amount of vaginal bleeding-January 16, was seen in ED in [facility]. Has been taking tamoxifen. LMP:December 2012. Was seen by [employer]/Jan. Given Aygestin 5 mg for 12 days on 02/08/14. Bx done. Was admi (more content not included)...[facility]04-17-2025 History of Present illness Narrative* Kaitlin Manuel APRN.CAST SHELL GRINDER - 12/27/2024 8:47 AM EDT Chief Complaint Patient presents with: Established Patient HPI: Silvia Dixon is a 49 year old female who presents here today for follow up breast cancer. Per Dr. Pool's previous note: H/o appreciated a lump in her left breast in the summer of 2011. She thought perhaps it was something benign based on a biopsy for a different lesion she had done when she was . However, thislump increased in size by July and then she noted further increase after the first of the year.Presented to 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 at [facility] and was referred here [...] LMP 12/2012. Pt. was on vacation in [facility] and had a large amount of vaginal bleeding-January 16, was seen in ED in [facility]. Has been taking tamoxifen. LMP:December 2012. Was seen by [employer]/Jan. Given Aygestin 5 mg for 12 days on 02/08/14. Bx done. Was admitted to [facility] for PE over the weekend February 16-. Told to stop aygestin 02/18/14. Current therapy:femara/zoladex. Started zoladex 05/28/14. LMP:04/14/14. Pt. had previously been on arimidex/aromasin-both stopped d/t joint/bones aches/pains. Completed xarelto therapy fall 2013. Had MRI breast in November 2020- neg. Although did show a ? liver lesion. MRI liver in December 2020-MANUEL. S/p Left Breast Oncoplastic Reduction and Right Breast Reduction for symmetry (Maintained previous Inferior Pedicles) on 07/09/[address] Dugan. S/p ablation 2024-Dr. Wick. Appetite:"Good." Wt. up 5# over past 6 months. Energy level:"Pretty good." Denies fevers or recent illness. Resp:denies cough or sob Cardiac:denies chest pain/palpitations GI:occ. abd lotg-amhjljp-omt been seen by PCP for this, occ. 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 Past medical history, appointments, medications, allergies reviewed. No changes. EXAM: BP 134/83 Pulse 103 Temp 36.4 C (97.6 F) (Temporal) Wt 125.9 kg (277 lb 9 oz) LMP 06/18/2024 (Exact Date) SpO2 95% BMI 44.80 kg/m APPEARANCE Well appearing, alert, in no acute distress, well-hydrated, well nourished. HEART RRR with normal S1 and S2, no murmurs LUNG clear to auscultation BREAST FEMALE b/l surgical scars, L radiation changes, no mass/nodule b/l LYMPH NODES No cervical lymphadenopathy, No supraclavicular lymphadenopathy, and No axillary lymphadenopathy. ABDOMEN bowel sounds normoactive, soft, non-tender EXTREMITIES No edema NEURO Awake, alert and oriented x 3, Normal gait, and No involuntary motions. SKIN Skin color, texture, turgor normal, no suspicious rashes or lesions ASSESSMENT/PLAN: 1. Encounter for follow-up surveillance of breast cancer - ICD9: V67.9, V10.3, ICD10: Z08, Z85.3 cT2 N0 MX ER/NH/HER2 pending metaplastic carcinoma of the left breast. - No concerning findings on exam. - Completed AI/zoladex therapy. - Stopped femara 12/09/21. She did not tolerate AI's d/t joint pain. She began tamoxifen 2012. - Imaging/mamm/MRI per breast center. - Pt. will message [employer] for follow up appt. - Needs f/u appt. Dr. Dugan-plastics/[place]. - Follow up in 6 months. - Pt. aware to call office with any questions/concerns. The patient indicates understanding of these issues and agrees with the plan. All documentation from previous visit of 06/27 & 07/04/24-Dr. Pool/myself was copied and pasted, documentation has been reviewed and edited as necessary for today's visit. Kaitlin Manuel APRN.ALLAN documented in this encounterMercy Health02-27-2025 Telephone encounter Note * Telephone Encounter - Christa Tran LPN - 11/08/2024 3:15 PM EST Prescription Refill Information The patient has been identified by name and date of : Yes Caregiver verified no other encounters exist for this prescription request: Yes Caregiver confirmed with patient/requestor that no other refills are due, in the near future, with this provider at this time: Yes The last office visit in the department: 10/31/24 Does the patient have a future office visit with this provider/department: Yes 04/15/25 Requested Prescriptions Pending Prescriptions Disp Refills omeprazole (PRILOSEC) 20 mg capsule 60 capsule 5 Sig: Take 1 capsule by mouth two times a day. Christa Tran LPN November 08, 2024 3:15 PM [facility]02-27-2025 Miscellaneous Notes* Telephone Encounter - Christa Tran LPN - 11/08/2024 3:15 PM EST Prescription Refill Information The patient has been identified by name and date of : Yes Caregiver verified no other encounters exist for this prescription request: Yes Caregiver confirmed with patient/requestor that no other refills are due, in the near future, with this provider at this time: Yes The last office visit in the department: 10/31/24 Does the patient have a future office visit with this provider/department: Yes 04/15/25 Requested Prescriptions Pending Prescriptions Disp Refills omeprazole (PRILOSEC) 20 mg capsule 60 capsule 5 Sig: Take 1 capsule by mouth two times a day. Christa Tran LPN November 08, 2024 3:15 PM documented in this encounterMercy Health02-19-2025 [id number] (AGENT OF COVID-19) RNA: Not detected INFLUENZA A RNA: Not detected INFLUENZA B RNA: Not detected RESPIRATORY SYNCYTIAL VIRUS (RSV) RNA: Not detectedUniversity Hospitals St. John Medical CenterComment on above:Performed By: #### [id number] ####[facility] LABCLIA [id number] [address] OF [id number] NoteHNO ID: [id number] Author: RANDY ZHANG MD Service: ? Author Type: Physician Type: Progress Notes Filed: 10/31/2024 14:58 Note Text: Patient presents with: Cough Dental Problem: Teeth pain HPI: Patient presents today for office visit for acute illness. Was around her niece whom tested pos for both influenza and covid. DURATION OF SYMPTOMS: Began 5 days ago ONSET OF SYMPTOMS: Sudden FEVER: No BODYACHES: Mild TIREDNESS: Mild HEADACHE: Severe. So bad was unable to get out of bed. Took Excedrin migraine with no relief. Is improving EAR SYMPTOMS: Pressure STUFFY NOSE: No POST NASAL DRIP: Yes. Drainage down throat SNEEZING: No SORE THROAT: Yes - mild COUGH: Yes, dry CHEST DISCOMFORT: No SHORTNESS OF BREATH: No WHEEZING: Yes. Has sinus pressure. She is using mucinex prn. MEDICATIONS: Current Outpatient Medications Medication Sig venlafaxine ER (EFFEXOR XR) 150 mg 24 hr capsule Take 1 capsule by mouth once daily. (Start week #3). losartan (COZAAR) 100 mg tablet Take 1 tablet by mouth once daily. metFORMIN ER (GLUCOPHAGE XR) 500 mg 24 hr tablet Take 2 tablets by mouth daily with breakfast. hydroCHLOROthiazide 25 mg tablet Take 1 tablet by mouth once daily. dulaglutide (TRULICITY) 0.75 mg/0.5 mL pen injector Inject 0.75 mg subcutaneously one time a week. Inject dose once per week. Discard Pen After buPROPion SR (WELLBUTRIN SR) 150 mg 12 hr tablet Take 1 tablet by mouth once daily. Blood-Glucose Sensor (FREESTYLE ALTHEA 3 SENSOR) roney 1 Each as directed. tiZANidine (ZANAFLEX) 4 mg tablet Take 1 tablet by mouth every 8 hours as needed (muscle spasms). Ascorbate Calcium 500 mg tab Take by mouth. docusate sodium (COLACE) 100 mg capsule Take 1 capsule by mouth two times a day as needed for constipation. calcium-cholecalciferol, D3, (OSCAL+D 250) 250 mg-3.125 mcg (125 unit) per tablet Take 1 tablet by mouth two times a day. lancets (TRUEPLUS LANCETS) 30 gauge Use with blood glucose test once daily blood sugar diagnostic (TRUE METRIX GLUCOSE TEST STRIP) test strip Use with blood glucose test once daily omeprazole (PRILOSEC) 20 mg capsule Take 1 capsule by mouth two times a day. Blood Pressure Monitor (BLOOD PRESSURE KIT) 1 Each as needed. ibuprofen (ADVIL) 200 mg tablet Take 200 mg by mouth every 6 hours as needed. acetaminophen (TYLENOL) 500 mg tablet Take 1,000 mg by mouth every 8 hours as needed. 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, invasive metaplastic carcinoma [...] LIG/TRNSXJ FLP TUBE ABDL/VAG APPR UNI/BI 11/27/2001 tubes tied MASTECTOMY, PARTIAL Left 04/12/2013 PAST SURGICAL HISTORY OF 11/12/2012 left breast lumpectomy REDUCTION OF LARGE BREAST Bilateral Breast reduction FAMILY HISTORY Problem Relation Age of Onset Diabetes Father Heart Father 54 heart attack, CHF 2017 Hypertension Father A-Fib Stroke Father 57 Obesity Father other (Congestive Heart Failure) Father Hypertension Mother A fib Stroke Mother 60 severe and has fully recovered Osteoporosis Mother Heart Maternal Grandfather CHF and Enlarged Heart Cancer Maternal Grandmother bone cancer Diabetes Maternal Grandmother Breast Cancer Maternal Grandmother 78 Heart Paternal Grandfather NE Diabetes Paternal Grandmother other (Lung Problems) Paternal Grandmother other (Rapid Airway Disease) Son Anesthesia Problems No Family History Social History Tobacco Use Smoking status: Never Smokeless tobacco: Never Vaping Use Vaping status: Never Used Substance Use Topics Alcohol use: Yes Comment: Seldom. a couple times a year Drug use: No R (more content not included)...[facility]02-19-2025 History of Present illness Narrative* Randy Zhang MD - 10/31/2024 2:31 PM EST Patient presents with: Cough Dental Problem: Teeth pain HPI: Patient presents today for office visit for acute illness. Was around her niece whom tested pos for both influenza and covid. DURATION OF SYMPTOMS: Began 5 days ago ONSET OF SYMPTOMS: Sudden FEVER: No BODYACHES: Mild TIREDNESS: Mild HEADACHE: Severe. So bad was unable to get out of bed. Took Excedrin migraine with no relief. Is improving EAR SYMPTOMS: Pressure STUFFY NOSE: No POST NASAL DRIP: Yes. Drainage down throat SNEEZING: No SORE THROAT: Yes - mild COUGH: Yes, dry CHEST DISCOMFORT: No SHORTNESS OF BREATH: No WHEEZING: Yes. Has sinus pressure. She is using mucinex prn. MEDICATIONS: Current Outpatient Medications Medication Sig venlafaxine ER (EFFEXOR XR) 150 mg 24 hr capsule Take 1 capsule by mouth once daily. (Start week #3). losartan (COZAAR) 100 mg tablet Take 1 tablet by mouth once daily. metFORMIN ER (GLUCOPHAGE XR) 500 mg 24 hr tablet Take 2 tablets by mouth daily with breakfast. hydroCHLOROthiazide 25 mg tablet Take 1 tablet by mouth once daily. dulaglutide (TRULICITY) 0.75 mg/0.5 mL pen injector Inject 0.75 mg subcutaneously one time a week. Inject dose once per week. Discard Pen After buPROPion SR (WELLBUTRIN SR) 150 mg 12 hr tablet Take 1 tablet by mouth once daily. Blood-Glucose Sensor (FREESTYLE ALTHEA 3 SENSOR) roney 1 Each as directed. tiZANidine (ZANAFLEX) 4 mg tablet Take 1 tablet by mouth every 8 hours as needed (muscle spasms). Ascorbate Calcium 500 mg tab Take by mouth. docusate sodium (COLACE) 100 mg capsule Take 1 capsule by mouth two times a day as needed for constipation. calcium-cholecalciferol, D3, (OSCAL+D 250) 250 mg-3.125 mcg (125 unit) per tablet Take 1 tablet by mouth two times a day. lancets (TRUEPLUS LANCETS) 30 gauge Use with blood glucose test once daily blood sugar diagnostic (TRUE METRIX GLUCOSE TEST STRIP) test strip Use with blood glucose test oncedaily omeprazole (PRILOSEC) 20 mg capsule Take 1 capsule by mouth two times a day. Blood Pressure Monitor (BLOOD PRESSURE KIT) 1 Each as needed. ibuprofen (ADVIL) 200 mg tablet Take 200 mg by mouth every 6 hours as needed. acetaminophen (TYLENOL) 500 mg tablet Take 1,000 mg by mouth every 8 hours as needed. 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, s/p excisional biopsy, neoadjuvant chemotherapy, partial mastectomy and oncoplasticbreast reduction, and sentinel node biopsy, s/p radiation [...] LIG/TRNSXJ FLP TUBE ABDL/VAG APPR UNI/BI 11/27/2001 tubes tied MASTECTOMY, PARTIAL Left 04/12/2013 PAST SURGICAL HISTORY OF 11/12/2012 left breast lumpectomy REDUCTION OF LARGE BREAST Bilateral Breast reduction FAMILY HISTORY Problem Relation Age of Onset Diabetes Father Heart Father 54 heart attack, CHF 2017 Hypertension Father A-Fib Stroke Father 57 Obesity Father other (Congestive Heart Failure) Father Hypertension Mother A fib Stroke Mother 60 severe and has fully recovered Osteoporosis Mother Heart Maternal Grandfather CHF and Enlarged Heart Cancer Maternal Grandmother bone cancer Diabetes Maternal Grandmother Breast Cancer Maternal Grandmother 78 Heart Paternal Grandfather NE Diabetes Paternal Grandmother other (Lung Problems) Paternal Grandmother other (Rapid Airway Disease) Son Anesthesia Problems No Family History Social History Tobacco Use Smoking status: Never Smokeless tobacco: Never Vaping Use Vaping status: Never Used Substance Use Topics Alcohol use: Yes Comment: Seldom. a couple times a year Drug use: No Reviewed current medications, allergies, past medical history, surgical history, family history andsocial history today. REVIEW OF SYSTEMS All other reviewed and negative other than HPI. VITALS: BP 126/80 Pulse 106 Temp 36.7 C (98.1 F) Ht 167.6 cm (5' 6") Wt 125.6 kg (277 lb) LMP 06/18/2024 (Exact Date) SpO2 94% BMI 44.71 kg/m Last 4 Encounter Wt Readings: Date: Wt: 10/31/2024 125.6 kg (277 lb) 10/15/2024 123.8 kg (273 lb) 07/19/2024 127.9 kg (282 lb) 07/04/2024 125.6 kg (277 lb) PHYSICAL EXAMINATION: General appearance: Well appearing, alert, in no acute distress, well-hydrated, well nourished. Skin: Skin color, texture, turgor normal, no suspicious rashes or lesions Head: Normocephalic, no masses, lesions, tenderness or abnormalities Eyes: Anicteric sclera. Pupils are equally round and reactive to light. Extraocular movements are intact. Ears: External ears normal, canals clear, left tm is full and slightly pink. Nose/Sinuses: Nares normal, septum midline, mucosa normal, no drainage or sinus tenderness Oropharynx: Lips, mucosa, and tongue normal, teeth and gums normal, oropharynx normal Neck: Supple, no adenopathy; Lungs: Lungs clear to auscultation. No wheezing, rhonchi, rales Heart: RRR without murmur, gallop, or rubs. No ectopy Abdomen: Normal abdominal exam, Abdomen soft, non-tender. Bowel sounds normal. No masses, organomegaly ASSESSMENT/PLAN: 1. URI, acute - ICD9: 465.9, ICD10: J06.9 (primary diagnosis) - Symptomatic treatment with prn analgesia - Supportive care with fluids and rest - COVID & INFLUENZA A/B & RSV PCR, ROUTINE 2. Hiatal hernia with GERD without esophagitis - ICD9: 553.3, 530.11, ICD10: K44.9, K21.9 - refill meds. - SUCRALFATE 1 GRAM TABLET 3. Left otitis media, unspecified otitis media type - ICD9: 382.9, ICD10: H66.92 - Discussed risks and benefits of new medication with the patient. Advised them to call if any sideeffects or questions. Red flags for re-assessment reviewed with patient in detail. Call if symptoms worsen at all or if not better in one to two weeks Reviewed diagnosis and treatment options in detail. Questions were answered. Patient expressed understanding of treatment plan. - AMOXICILLIN 500 MG CAPSULE Randy Zhang MD documented in this encounterMer[facility] Health02-06-2025 Telephone encounter Note * Telephone Encounter - Shanta Anderson MA - 10/18/2024 10:08 AM EST Pt notified of results via [employer]. Shanta Anderson Ma [facility]02-06-2025 Miscellaneous Notes* Telephone Encounter - Shanta Anderson MA - 10/18/2024 10:08 AM EST Pt notified of results via [employer]. Shanta Anderson Ma * Telephone Encounter - Obi Red OCCA - 10/17/2024 9:57 AM EST TC no answer. Left VM to return call. FLOR Villarreal * Telephone Encounter - Savita Griffith APRN.CNP - 10/16/2024 4:56 PM EST Can we please let patient know that I received her lab results. Everything looks good, except her potassium was just a little low. Please increase potassium- rich foods in the diet (ie. bananas, cantaloupe, beans, sweet potato, potato, spinach, orange juice). Please recheck a level in 1-2 weeks. Savita Griffith APRN.CNP documented in this encounterMercy Health02-05-2025 Telephone encounter Note * Telephone Encounter - Obi Red OCCA - 10/17/2024 9:57 AM EST TC no answer. Left VM to return call. FLOR Villarreal [facility]02-04-2025 Telephone encounter Note* Telephone Encounter - Savita Griffith APRN.CNP - 10/16/2024 4:56 PM EST Can we please let patient know that I received her lab results. Everything looks good, except her potassium was just a little low. Please increase potassium- rich foods in the diet (ie. bananas, cantaloupe, beans, sweet potato, potato, spinach, orange juice). Please recheck a level in 1-2 weeks. Savita Griffith APRN.CNP [facility]02-03-2025 Instructions* Patient Instructions* Marlon Hollis - 10/15/2024 3:14 PM EST Start using flonase for sinus pressure and congestion Start using small drops of oil in both ears to help with dryness and itching Get lab work Continue current home medication regimen documented in this encounterMercy Health02-03-2025 NoteHNO ID: [id number] Author: SAVITA GRIFFITH APRN.[employer] SHE[employer]ER Service: ? Author Type: Nurse Practitioner Type: Progress Notes Filed: 10/15/2024 19:10 Note Text: This is a 49 year old female who presents today with: Patient presents with: Follow Up: Medication refills; discuss CGM Pressure in nose and sinuses Having to blow her nose multiple times per day Started a week ago but has been worse the last 4 days Denies fevers and chills +nausea, denies vomiting +abd pain Denies nausea/vomiting Using tylenol sinus cold medication with no relief No ear pain, b/l itching HTN: Patient is compliant with meds Yes Monitors bp at home: Yes. Denies side effects: Yes. Chest pain: No. Dyspnea: No. Edema: No. Palpitations: No. Syncope: No. Headache: No. Dizziness: No. DM: Reports overall feeling well. Medication side effects: Yes. Home sugar checks: Yes Hypoglycemic spells: No. Watching diet: Yes. Unexpected weight loss: No. Polyuria, polydipsia: No. Vision Changes: No. Foot lesions or numbness or pain: No. Started CGM in June and and it got bent and stuck in the back of her arm Has not used CMG since August Had issues with readings being low on CGM when she was asleep throughout the night and when she would do fingersticks her sugars would be fine CGM would say it was as low as 35 -- but finger stick would be in the 90's. 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 Ascorbate Calcium 500 mg tab Take by mouth. docusate sodium (COLACE) 100 mg capsule Take 1 capsule by mouth two times a day as needed for constipation. venlafaxine ER (EFFEXOR XR) 150 mg 24 hr capsule Take 1 capsule by mouth once daily. (Start week #3). calcium-cholecalciferol, D3, (OSCAL+D 250) 250 mg-3.125 mcg (125 unit) per tablet Take 1 tablet by mouth two times a day. lancets (TRUEPLUS LANCETS) 30 gauge Use with blood glucose test once daily blood sugar diagnostic (TRUE METRIX GLUCOSE TEST STRIP) test strip Use with blood glucose test once daily buPROPion SR (WELLBUTRIN SR) 150 mg 12 hr tablet Take 1 tablet by mouth once daily. dulaglutide (TRULICITY) 0.75 mg/0.5 mL pen injector Inject 0.75 mg subcutaneously one time a week. Inject dose once per week. Discard Pen After hydroCHLOROthiazide 25 mg tablet Take 1 tablet by mouth once daily. losartan (COZAAR) 100 mg tablet Take 1 tablet by mouth once daily. metFORMIN ER (GLUCOPHAGE XR) 500 mg 24 hr tablet Take 2 tablets by mouth daily with breakfast. omeprazole (PRILOSEC) 20 mg capsule Take 1 capsule by mouth two times a day. Blood Pressure Monitor (BLOOD PRESSURE KIT) 1 Each as needed. ibuprofen (ADVIL) 200 mg tablet Take 200 mg by mouth every 6 hours as needed. acetaminophen (TYLENOL) 500 mg tablet Take 1,000 mg by mouth every 8 hours as needed. elderberry fruit (ELDERBERRY ORAL) Take 1,000 mg [...] FAMILY HISTORY Problem Relation Age of Onset Diabetes Father Heart Father 54 heart attack, CHF 2017 Hypertension Father A-Fib Stroke Father 57 Obesity Father other (Congestive Heart Failure) Father Hypertension Mother A fib Stroke Mother 60 severe and has fully recovered Osteoporosis Mother Heart Maternal Grandfather CHF and E (more content not included)...[facility]02-03-2025 History of Present illness Narrative* Savita Griffith APRN.[employer] - 10/15/2024 2:38 PM EST This is a 49 year old female who presents today with: Patient presents with: Follow Up: Medication refills; discuss CGM Pressure in nose and sinuses Having to blow her nose multiple times per day Started a week ago but has been worse the last 4 days Denies fevers and chills +nausea, denies vomiting +abd pain Denies nausea/vomiting Using tylenol sinus cold medication with no relief No ear pain, b/l itching HTN: Patient is compliant with meds Yes Monitors bp at home: Yes. Denies side effects: Yes. Chest pain: No. Dyspnea: No. Edema: No. Palpitations: No. Syncope: No. Headache: No. Dizziness: No. DM: Reports overall feeling well. Medication side effects: Yes. Home sugar checks: Yes Hypoglycemic spells: No. Watching diet: Yes. Unexpected weight loss: No. Polyuria, polydipsia: No. Vision Changes: No. Foot lesions or numbness or pain: No. Started CGM in June and and it got bent and stuck in the back of her arm Has not used CMG since August Had issues with readings being low on CGM when she was asleep throughout the night and when she would do fingersticks her sugars would be fine CGM would say it was as low as 35 -- but finger stick would be in the 90's. 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, s/p excisional biopsy, neoadjuvant chemotherapy, partial mastectomy and oncoplasticbreast reduction, and sentinel node biopsy, s/p radiation [...] LIG/TRNSXJ FLP TUBE ABDL/VAG APPR UNI/BI 11/27/2001 tubes tied MASTECTOMY, PARTIAL Left 04/12/2013 PAST SURGICAL HISTORY OF 11/12/2012 left breast lumpectomy REDUCTION OF LARGE BREAST Bilateral Breast reduction ALLERGIES Nitrofurantoin, Lisinopril, Phenazopyridine, and Toradol [Ketorolac Tromethamine] MEDICATIONS Current Outpatient Medications Medication Sig tiZANidine (ZANAFLEX) 4 mg tablet Take 1 tablet by mouth every 8 hours as needed (muscle spasms). Ascorbate Calcium 500 mg tab Take by mouth. docusate sodium (COLACE) 100 mg capsule Take 1 capsule by mouth two times a day as needed for constipation. venlafaxine ER (EFFEXOR XR) 150 mg 24 hr capsule Take 1 capsule by mouth once daily. (Start week #3). calcium-cholecalciferol, D3, (OSCAL+D 250) 250 mg-3.125 mcg (125 unit) per tablet Take 1 tablet by mouth two times a day. lancets (TRUEPLUS LANCETS) 30 gauge Use with blood glucose test once daily blood sugar diagnostic (TRUE METRIX GLUCOSE TEST STRIP) test strip Use with blood glucose test oncedaily buPROPion SR (WELLBUTRIN SR) 150 mg 12 hr tablet Take 1 tablet by mouth once daily. dulaglutide (TRULICITY) 0.75 mg/0.5 mL pen injector Inject 0.75 mg subcutaneously one time a week. Inject dose once per week. Discard Pen After hydroCHLOROthiazide 25 mg tablet Take 1 tablet by mouth once daily. losartan (COZAAR) 100 mg tablet Take 1 tablet by mouth once daily. metFORMIN ER (GLUCOPHAGE XR) 500 mg 24 hr tablet Take 2 tablets by mouth daily with breakfast. omeprazole (PRILOSEC) 20 mg capsule Take 1 capsule by mouth two times a day. Blood Pressure Monitor (BLOOD PRESSURE KIT) 1 Each as needed. ibuprofen (ADVIL) 200 mg tablet Take 200 mg by mouth every 6 hours as needed. acetaminophen (TYLENOL) 500 mg tablet Take 1,000 mg by mouth every 8 hours as needed. elderberry fruit (ELDERBERRY ORAL) Take 1,000 mg [...] FAMILY HISTORY Problem Relation Age of Onset Diabetes Father Heart Father 54 heart attack, CHF 2017 Hypertension Father A-Fib Stroke Father 57 Obesity Father other (Congestive Heart Failure) Father Hypertension Mother A fib Stroke Mother 60 severe and has fully recovered Osteoporosis Mother Heart Maternal Grandfather CHF and Enlarged Heart Cancer Maternal Grandmother bone cancer Diabetes Maternal Grandmother Breast Cancer Maternal Grandmother 78 Heart Paternal Grandfather NE Diabetes Paternal Grandmother other (Lung Problems) Paternal Grandmother other (Rapid Airway Disease) Son Anesthesia Problems No Family History Social History Tobacco Use Smoking status: Never Smokeless tobacco: Never Vaping Use Vaping status: Never Used Substance Use Topics Alcohol use: Yes Comment: Seldom. a couple times a year Drug use: No REVIEW OF SYSTEMS GENERAL: No weight loss, malaise or fevers HEENT: Negative for frequent or significant headaches, No changes in hearing or vision, no nose bleeds or other nasal problems, Ears Positive for bilateral ear itching. RESPIRATORY: Negative for cough, hemoptysis, wheezing, COPD, dyspnea or shortness of breath CARDIOVASCULAR: Negative for chest pain, leg swelling, hypertension, CHF or palpitations GI: No nausea, vomiting, or diarrhea : No history of dysuria, frequency or incontinence All other reviewed and negative other than HPI. EXAM: BP 130/92 Pulse 109 Resp 16 Wt 123.8 kg (273 lb) LMP 06/18/2024 (Exact Date) SpO2 96% BMI 44.06 kg/m PHYSICAL EXAM: General Appearance: Well appearing, alert, in no acute distress, well-hydrated, well nourished.. Skin: Skin color, texture, turgor normal, no suspicious rashes or lesions. Head: Normocephalic, no masses, lesions, tenderness or abnormalities. Eyes: Anicteric sclera. Pupils are equally round and reactive to light. Extraocular movements are intact. . Ears: External ears normal, bilateral external ear canals dry. Nose/Sinuses: Nares normal, septum midline, mucosa normal, no drainage. Positive for frontal and maxillary sinus tenderness. Oropharynx: Lips, mucosa, and tongue normal, teeth and gums normal, oropharynx normal. Neck: Supple, no adenopathy; thyroid symmetric, normal size, no bruits. Lungs: Lungs clear to auscultation. No wheezing, rhonchi, rales.. Heart: RRR without murmur, gallop, or rubs. No ectopy. Neurologic: Gait normal. Reflexes normal and symmetric. Sensation grossly intact.. ASSESSMENT/PLAN: 1. Anxiety and depression - ICD9: 300.00, 311, ICD10: F41.9, F32.A -Well controlled -Continue current medication regimen - VENLAFAXINE ER 150 MG CAPSULE,EXTENDED RELEASE 24 HR - BUPROPION HCL SR 150 MG TABLET,12 HR SUSTAINED-RELEASE 2. Hot flashes - ICD9: 782.62, ICD10: R23.2 -Well controlled' -Continue current medication regimen - VENLAFAXINE ER 150 MG CAPSULE,EXTENDED RELEASE 24 HR 3. Essential hypertension - ICD9: 401.9, ICD10: I10 - Controlled - Recommend home blood pressure monitoring, to bring results to next visit - Encouraged sodium restriction, DASH or Mediterranean diet - Recommend regular aerobic exercise - LOSARTAN 100 MG TABLET - HYDROCHLOROTHIAZIDE 25 MG TABLET 4. Type 2 diabetes mellitus with hyperglycemia, without long-term current use of insulin (HCC) - ICD9: 250.00, 790.29, ICD10: E11.65 - Controlled - Continue current medications - METFORMIN ER 500 MG TABLET,EXTENDED RELEASE 24 HR - DULAGLUTIDE 0.75 MG/0.5 ML SUBCUTANEOUS PEN INJECTOR 5. Viral sinusitis - ICD9: 473.9, 079.99, ICD10: J32.9, B97.89 - Discussed viral etiology and rationale for treatment. - Symptomatic treatment with prn analgesia - Supportive care with fluids and rest - discussed flonase and mucinex. Discussed treatment plan and patient voices understanding. Patient's questions answered appropriately. Medications and potential side effects were discussed and patient voices understanding. Return to the office as scheduled or as needed for worsening/no improvement. Savita Griffith APRN.CAST SHELL GRINDER documented [facility]12-[facility]24 Telephone encounter Note * Telephone Encounter - Nhung Cuba MA - 09/03/2024 12:04 PM EST Prescription Refill Information The patient has been identified by name and date of : Yes Caregiver verified no other encounters exist for this prescription request: Yes Caregiver confirmed with patient/requestor that no other refills are due, in the near future, with this provider at this time: Yes The last office visit in the department: 06/2024 Does the patient have a future office visit with this provider/department: Yes 09/2024 Requested Prescriptions Pending Prescriptions Disp Refills tiZANidine (ZANAFLEX) 4 mg tablet 30 tablet 1 Sig: Take 1 tablet by mouth every 8 hours as needed (muscle spasms). Nhung Cuba MA September 03, 2024 12:04 PM [facility]12-23-[facility] Miscellaneous Notes* Telephone Encounter - Nhung Cuba MA - 09/03/2024 12:04 PM EST Prescription Refill Information The patient has been identified by name and date of : Yes Caregiver verified no other encounters exist for this prescription request: Yes Caregiver confirmed with patient/requestor that no other refills are due, in the near future, with this provider at this time: Yes The last office visit in the department: 06/2024 Does the patient have a future office visit with this provider/department: Yes 09/2024 Requested Prescriptions Pending Prescriptions Disp Refills tiZANidine (ZANAFLEX) 4 mg tablet 30 tablet 1 Sig: Take 1 tablet by mouth every 8 hours as needed (muscle spasms). Nhung Cuba MA September 03, 2024 12:04 PM documented in this encounterMercy Health12-05-2024 NoteHNO ID: [id number] Author: MARISOL TERRELL ST Service: ? Author Type: Surg Farmworker Poultry Type: Progress Notes Filed: 08/16/2024 14:02 Note Text: DATE OF PHOTOS: 08/16/2024 Body Part: Breasts ST RIAZ August 16, 2024 2:02 [facility]12-05-2024 History of Present illness Narrative* Marisol Terrell ST - 08/16/2024 2:02 PM EST DATE OF PHOTOS: 08/16/2024 Body Part: Breasts ST [facility]IA[facility] August 16, 2024 2:02 PM documented in this encounterMercy Health12-05-2024 History of Present illness Narrative* Linda Dugan MD - 08/16/2024 11:00 AM EST Plastic Surgery Post Op Note CC: post op HPI: Silvia Dixon is a 49 year old female who presents s/p Date of Surgery: 07/09/24 Surgery: Left Breast Oncoplastic Reduction and Right Breast Reduction for symmetry (Maintained previous Inferior Pedicles) Time Postop: 5 weeks Pt presents for routine post-op visit. Pain: well controlled with tylenol Drainage from incisions: denies Fever/chills: denies Antibiotics: no Drain output: n/a - JPx2 removed at BEST Activity: able to participate in ADLs within recommended restrictions Patient states that she is having some drainage from under her right breast. Hx Radiation Therapy: Yes, completed 06/06/13 to 07/19/13 Hx Chemotherapy: Yes completed 03/23/2023 Surgical pathology reviewed: right breast reduction 992 g, left oncoplastic reduction 433 g FINAL DIAGNOSIS A. Breast, right, mammoplasty: - Unremarkable skin and breast tissue. B. Breast, left, mammoplasty: - Unremarkable skin and breast tissue. C. 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 sucralfate (CARAFATE) 1 gram tablet Take 1 tablet by mouth before meals and at bedtime. venlafaxine ER (EFFEXOR XR) 37.5 mg 24 hr capsule Week #1: take venlafaxine 37.5 mg with 40 mg of fluoxetine daily. Week #2: take venlafaxine 75 mg with 20 mg of fluoxetine daily. Week #3: increase venlafaxine to 150 mg daily and stop fluoxetine. venlafaxine ER (EFFEXOR XR) 150 mg 24 hr capsule Take 1 capsule by mouth once daily. (Start week #3). calcium-cholecalciferol, D3, (OSCAL+D 250) 250 mg-3.125 mcg (125 unit) per tablet Take 1 tablet by mouth two times a day. lancets (TRUEPLUS LANCETS) 30 gauge Use with blood glucose test once daily tiZANidine (ZANAFLEX) 4 mg tablet Take 1 tablet by mouth every 8 hours as needed (muscle spasms). blood sugar diagnostic (TRUE METRIX GLUCOSE TEST STRIP) test strip Use with blood glucose test oncedaily buPROPion SR (WELLBUTRIN SR) 150 mg 12 hr tablet Take 1 tablet by mouth once daily. dulaglutide (TRULICITY) 0.75 mg/0.5 mL pen injector Inject 0.75 mg subcutaneously one time a week. Inject dose once per week. Discard Pen After FLUoxetine (PROZAC) 20 mg capsule Take 1 capsule by mouth once daily. Take with 40 mg dose for total daily dose of 60 mg. (Patient not taking: Reported on 07/04/2024) hydroCHLOROthiazide 25 mg tablet Take 1 tablet by mouth once daily. losartan (COZAAR) 100 mg tablet Take 1 tablet by mouth once daily. metFORMIN ER (GLUCOPHAGE XR) 500 mg 24 hr tablet Take 2 tablets by mouth daily with breakfast. omeprazole (PRILOSEC) 20 mg capsule Take 1 capsule by mouth two times a day. Blood Pressure Monitor (BLOOD PRESSURE KIT) 1 Each as needed. ibuprofen (ADVIL) 200 mg tablet Take 200 mg by mouth every 6 hours as needed. acetaminophen (TYLENOL) 500 mg tablet Take 1,000 mg by mouth every 8 hours as needed. elderberry fruit (ELDERBERRY ORAL) Take 1,000 mg by mouth once daily. Blood Pressure Cuff - Home Use BLOOD PRESSURE CUFF FOR HOME USE. DX: LABILE BLOOD PRESSURE ascorbic acid (VITAMIN C) 500 mg tablet Take 500 mg by mouth once daily. multivitamin tablet Take 1 tablet by mouth once daily. No current facility-administered medications on file prior to visit. LMP 06/18/2024 (Exact Date) PE Alert and oriented in NAD on room air Bilateral breast incisions c/d/I and well approximated Bilateral breast soft, no fluid collections noted upon exam No s/s of infection The sensitive examination was discussed with the Patient or Patient's Authorized Assessment Expert. Asapplicable, any other physician, advance practice provider, medical student, or other health professional student that will be observing or involved in the sensitive examination for educational or training purposes was discussed with the Patient or Authorized Assessment Expert. The Patient or Authorized Assessment Expert has agreed to proceed with the sensitive examination. (Sensitive examination includes inspection and/or palpation of the breasts, pelvis, prostate and anorectal regions) ASSESSMENT/PLAN: Expected post operative course Doing well - Bactroban order placed -consult to breast rehab at 4 weeks, orders placed. Please call [phone] to schedule, change, cancel or confirm an appointment. - Encouraged patient to massage breast tissue to help with softening - Applied Xeroform to incisions - Discussed fat grafting and right mastopexy in the future -Shower regularly to keep the incisions clean and inspect for signs of infection (due to decreased sensation) -Walking is encouraged, this helps to reduce swelling and lowers the chance of blood clots. If you were prescribed anticoagulation post operatively, please complete course as instructed -Activity restrictions reviewed with patient. Okay to raise arm above head at 4 weeks if you drainshave all been removed and you do not have any wound healing issues. No heavy lifting/pushing/pulling greater than 10 lbs for 6 weeks after surgery. Do not perform salesforce administrator such as laundry andvacuuming. Do not perform yard work. -Continue surgical bra, please wear tight closing compression bra 4-6 weeks following surgery -Continue compression garment- okay for spanx type garment -No water submersion/baths until all incisions are fully healed -Okay for driving if not taking any narcotic pain medication and you feel safe to maneuver a car - If you have steri strips over incisions, please leave these in place, they will peel back on their own. Should you have new drainage, spreading redness, odor, or pain in the area please let our office know and we will instruct you further -okay to sleep on your back and lie flat, do not sleep on the surgical side 3-4 weeks after recent procedure -Okay for tylenol alternating with ibuprofen for pain control (do not exceed 4 g tylenol in a 24 hour period, okay for ibuprofen 600-800 mg every 8 hours as needed for pain) Encouraged patient to communicate through [facility] for all non-urgent questions or concerns. If experiencing wound complications or have any questions or concerns during business hours call [phone] or after hours (after 5 pm or on the weekend) call [phone] and ask for the plastic surgery resident / fellow contact lens polisher for further instructions. If you have increasing swelling or bruising, particularly one side greater than the other. If swelling and redness persists after a few days. If you have increased redness along the incision. If you have severe or increased pain not relieved by medication. If you have an oral temperature of 100.4 degrees or higher. If you have any yellow or greenish drainage from the incisions or notice a foul smell. If you have bleeding from the incisions that is difficult to control with light pressure If you have new chest pain, shortness of breast or difficulty breathing Return to clinic in 2-4 weeks with Arleth Alva The patient is seen and examined by Linda Dugan MD and the following reflects her service. Scribed by Rubi Barr, GIA and Hoa Anderson RN I agree with the Chief Complaint, ROS, and Past Histories independently gathered by the clinical merchandise support associate and the remaining scribed note accurately describes my personal service to the patient. I spent 20 minutes in the visit, with more than 50% of the total [id number] time of the visit in counseling / coordination of care. She has some subtle wound healing issues along the incisions that should heal. I discussed Bactroban and xeroform. Will have her see Gregg in 2-4 weeks and me in 3 months to assess. She will eventuallyneed left breast fat grafting and right breast revision mastopexy. She will start Breast Rehab and work to improve the firmness of the left radiated breast. MD Linda Rivera MD documented in this encounterMer[facility]12-05-2024 NoteHNO ID: [id number] Author: LINDA DUGAN MD Service: ? Author Type: Physician Type: Progress Notes Filed: 08/16/2024 13:39 Note Text: Plastic Surgery Post Op Note CC: post op HPI: Silvia Dixon is a 49 year old female who presents s/p Date of Surgery: 07/09/24 Surgery: Left Breast Oncoplastic Reduction and Right Breast Reduction for symmetry (Maintained previous Inferior Pedicles) Time Postop: 5 weeks Pt presents for routine post-op visit. Pain: well controlled with tylenol Drainage from incisions: denies Fever/chills: denies Antibiotics: no Drain output: n/a - JPx2 removed at BEST Activity: able to participate in ADLs within recommended restrictions Patient states that she is having some drainage from under her right breast. Hx Radiation Therapy: Yes, completed 06/06/13 to 07/19/13 Hx Chemotherapy: Yes completed 03/23/2023 Surgical pathology reviewed: right breast reduction 992 g, left oncoplastic reduction 433 g FINAL DIAGNOSIS A. Breast, right, mammoplasty: - Unremarkable skin and breast tissue. B. Breast, left, mammoplasty: - Unremarkable skin and breast tissue. C. 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 sucralfate (CARAFATE) 1 gram tablet Take 1 tablet by mouth before meals and at bedtime. venlafaxine ER (EFFEXOR XR) 37.5 mg 24 hr capsule Week #1: take venlafaxine 37.5 mg with 40 mg of fluoxetine daily. Week #2: take venlafaxine 75 mg with 20 mg of fluoxetine daily. Week #3: increase venlafaxine to 150 mg daily and stop fluoxetine. venlafaxine ER (EFFEXOR XR) 150 mg 24 hr capsule Take 1 capsule by mouth once daily. (Start week #3). calcium-cholecalciferol, D3, (OSCAL+D 250) 250 mg-3.125 mcg (125 unit) per tablet Take 1 tablet by mouth two times a day. lancets (TRUEPLUS LANCETS) 30 gauge Use with blood glucose test once daily tiZANidine (ZANAFLEX) 4 mg tablet Take 1 tablet by mouth every 8 hours as needed (muscle spasms). blood sugar diagnostic (TRUE METRIX GLUCOSE TEST STRIP) test strip Use with blood glucose test once daily buPROPion SR (WELLBUTRIN SR) 150 mg 12 hr tablet Take 1 tablet by mouth once daily. dulaglutide (TRULICITY) 0.75 mg/0.5 mL pen injector Inject 0.75 mg subcutaneously one time a week. Inject dose once per week. Discard Pen After FLUoxetine (PROZAC) 20 mg capsule Take 1 capsule by mouth once daily. Take with 40 mg dose for total daily dose of 60 mg. (Patient not taking: Reported on 07/04/2024) hydroCHLOROthiazide 25 mg tablet Take 1 tablet by mouth once daily. losartan (COZAAR) 100 mg tablet Take 1 tablet by mouth once daily. metFORMIN ER (GLUCOPHAGE XR) 500 mg 24 hr tablet Take 2 tablets by mouth daily with breakfast. omeprazole (PRILOSEC) 20 mg capsule Take 1 capsule by mouth two times a day. Blood Pressure Monitor (BLOOD PRESSURE KIT) 1 Each as needed. ibuprofen (ADVIL) 200 mg tablet Take 200 mg by mouth every 6 hours as needed. acetaminophen (TYLENOL) 500 mg tablet Take 1,000 mg by mouth every 8 hours as needed. elderberry fruit (ELDERBERRY ORAL) Take 1,000 mg by mouth once daily. Blood Pressure Cuff - Home Use BLOOD PRESSURE CUFF FOR HOME USE. DX: LABILE BLOOD PRESSURE ascorbic acid (VITAMIN C) 500 mg tablet Take 500 mg by mouth once daily. multivitamin tablet Take 1 tablet by mouth once daily. No current facility-administered medications on file prior to visit. LMP 06/18/2024 (Exact Date) PE Alert and oriented in NAD on room air Bilateral breast incisions c/d/I and well approximated Bilateral breast soft, no fluid collections noted upon exam No s/s of infec (more content not included)...[facility] 07-31-2024 [facility] Medical Records Department [address] [place] [address] History Physical Exam 07/31/24 1119 MR#: [id number] Acct: [id number] Name: SILVIA DIXON Rep #: [id number] : 1975 49 From: Alejandra Wick MD PCP: Dr. Randy Zhang MD Status:[facility] Location: [place] [address] History and Physical Intake Vital Signs 06/18/2412:18 06/22/2410:08 06/22/2410:10 Height 5 ft 6 in 5 ft 6 in 5 ft 6 in Weight: 272 lb BMI 43.9 BP 128/83 H Intake Visit Reasons: AUB ED FU Detention Officer Required: No Is patient in pain?: No Allergies ketorolac tromethamine (From Toradol) Allergy (Verified 06/22/24 10:09) Hivesnitrofurantoin Allergy (Verified 06/22/24 10:09) Hives Medications ???Medication ???Instructions ???Recorded ???Confirmed ???Type multivitamin with folic acid 400 1 tab PO DAILY 02/17/14 06/22/24 History mcg tablet omeprazole 20 mg capsule,delayed 20 mg PO DAILY 02/17/14 06/22/24 History release losartan 50 mg tablet 50 mg PO DAILY 12/18/17 06/22/24 History dulaglutide 1.5 mg/0.5 mL 1.5 mg subcut QWEEK 06/22/22 06/22/24 History subcutaneous pen injector (Trulicity) metformin 500 mg tablet 500 mg PO BID 06/22/22 06/22/24 History ascorbate calcium (vitamin C) 500 500 mg PO DAILY 05/24/23 06/22/24 History mg tablet bupropion HCl 75 mg tablet 75 mg PO TID 10/12/23 06/22/24 History naproxen 500 mg tablet 500 mg PO BID PRN pain #30 tabs 11/25/23 06/22/24 Rx fluoxetine 60 mg tablet 60 mg PO QDAY 05/28/24 06/22/24 History sucralfate 1 gram tablet (Carafate) 1 g PO BID 05/28/24 06/22/24 History PFSH Medical History Diabetes Leg pain Anxiety and depression History of breast cancer Pulmonary embolism Surgical History History of bilateral breast reduction surgery Hx of tubal ligation History of lumpectomy History of mastectomy Family History Mother A-fib CVA (cerebral vascular accident)Father A-fibGrandmother Breast cancer Social History (Updated 05/28/24 @ 13:05 by Darline Modi) number of children: 2 current occupational status: unemployed Smoking Status: Never smoker alcohol intake: never substance use type: does not use caffeine: Yes what type of physical activity do you participate in: walking seatbelt use: always do you feel safe at home: Yes additional social history: [employer] Patient is unemployed HPI AUB ED FU Details: SILVIA DIXON is a 49 year old who presents for abnormal uterine bleeding. Patient has been intermittently having. She will go several months without bleeding and then she had several cycles this summer some heavier than others. Occasional cramping. This last cycle was very heavy and brought her to the emergency room. She did not have significant anemia. she is having breast reconstruction the end of this month. she is considering an ablation now for irregular bleeding. History 2 Elective abortions Hx Para 2 Spontaneous abortions Hx # Term Pregnancies Ectopic pregnancies Hx # Pregnancies Multiple births # of living children Past Pregnancies Del. Date Name GA/Weeks Outcome Route Bth Weight Infant Gen Labor Lgth Anesthesia Del Locatn Provider FOB Unknown 1999 Jhon live - full term Caitlyn Arnold Unknown 2001 Jovan live - full term Caitlyn Arnold ROS Const Constitutional: Denies fatigue, fever(s), headache(s), increased appetite, poor appetite, weight gain or weight loss : Reports as per HPI; Denies difficulty voiding, dysuria, urinary frequency, urinary incontinence, urinary hesitancy, urinary urgency, vaginal discharge, vaginal dryness, vaginal odor or vaginal pruritus Exam Const General: cooperative, healthy appearing, comfortable, no acute distress and well developed Nutritional Appearance: average body habitus Orientation: alert General: bladder normal to palpation External Female Exam: normal external appearance and normal appearance of the urethra Urethra: normal appearance of the urethra and normal palpation Speculum Exam - Vagina: normal appearance of the vagina and vaginal bleeding Speculum Exam - Cervix: normal appearance of the cervix and nontender Bimanual Exam- Vagina Uterus: normal bimanual exam, uterine size normal, bladder normal to palpation, uterine shape normal, No tender, uterine mobility normal, consistency normal, normal palpation and non-tender Bimanual Exam- Adnexa, other: normal adnexae, adnexae mobile, no masses and normal Pelvic Support: normal OB/External Speculum: vaginal bleeding Speculum Exam: vaginal bleeding Office Procedures Endometrial Biopsy Endo (more content not included)...[facility]11-11-2024 Telephone encounter Note* Telephone Encounter - Christa Tran LPN - 07/23/2024 2:47 PM EST Prescription Refill Information The patient has been identified by name and date of : Yes Caregiver verified no other encounters exist for this prescription request: Yes Caregiver confirmed with patient/requestor that no other refills are due, in the near future, with this provider at this time: Yes The last office visit in the department: 06/13/24 Does the patient have a future office visit with this provider/department: Yes 08/17/24 Requested Prescriptions Pending Prescriptions Disp Refills sucralfate (CARAFATE) 1 gram tablet 60 tablet 0 Sig: Take 1 tablet by mouth before meals and at bedtime. Christa Tran LPN July 23, 2024 2:48 PM [facility]11-11-2024 Miscellaneous Notes* Telephone Encounter - Christa Tran LPN - 07/23/2024 2:47 PM EST Prescription Refill Information The patient has been identified by name and date of : Yes Caregiver verified no other encounters exist for this prescription request: Yes Caregiver confirmed with patient/requestor that no other refills are due, in the near future, with this provider at this time: Yes The last office visit in the department: 06/13/24 Does the patient have a future office visit with this provider/department: Yes 08/17/24 Requested Prescriptions Pending Prescriptions Disp Refills sucralfate (CARAFATE) 1 gram tablet 60 tablet 0 Sig: Take 1 tablet by mouth before meals and at bedtime. Christa Tran LPN July 23, 2024 2:48 PM [facility]-2024 NoteHNO ID: [id number] Author: ARLETH ALVA APRN.CAST SHELL GRINDER Service: ? Author Type: Nurse Practitioner Type: Progress Notes Filed: 07/19/2024 13:38 Note Text: Plastic Surgery Post Op Note CC: post op HPI: Silvia Dixon is a 49 year old female who presents s/p Date of Surgery: 07/09/24 Surgery: Left Breast Oncoplastic Reduction and Right Breast Reduction for symmetry (Maintained previous Inferior Pedicles) Time Postop: 10 days Pt presents for initial post-op visit. Pain: control is good with medication. Drainage from incisions: denies Fever/chills: denies Antibiotics: no Drain output JPx 2: <15cc per day x48 hours Activity: able to participate in ADLs within recommended restrictions Appetite: improving denies concerns Hx Radiation Therapy: Yes, completed 06/06/13 to 07/19/13 Hx Chemotherapy: Yes completed 03/23/2023 Surgical pathology reviewed: right breast reduction 992 g, left oncoplastic reduction 433 g FINAL DIAGNOSIS A. Breast, right, mammoplasty: - Unremarkable skin and breast tissue. B. Breast, left, mammoplasty: - Unremarkable skin and breast tissue. C. 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 sucralfate (CARAFATE) 1 gram tablet Take 1 tablet by mouth before meals and at bedtime. venlafaxine ER (EFFEXOR XR) 37.5 mg 24 hr capsule Week #1: take venlafaxine 37.5 mg with 40 mg of fluoxetine daily. Week #2: take venlafaxine 75 mg with 20 mg of fluoxetine daily. Week #3: increase venlafaxine to 150 mg daily and stop fluoxetine. venlafaxine ER (EFFEXOR XR) 150 mg 24 hr capsule Take 1 capsule by mouth once daily. (Start week #3). calcium-cholecalciferol, D3, (OSCAL+D 250) 250 mg-3.125 mcg (125 unit) per tablet Take 1 tablet by mouth two times a day. lancets (TRUEPLUS LANCETS) 30 gauge Use with blood glucose test once daily tiZANidine (ZANAFLEX) 4 mg tablet Take 1 tablet by mouth every 8 hours as needed (muscle spasms). blood sugar diagnostic (TRUE METRIX GLUCOSE TEST STRIP) test strip Use with blood glucose test once daily buPROPion SR (WELLBUTRIN SR) 150 mg 12 hr tablet Take 1 tablet by mouth once daily. dulaglutide (TRULICITY) 0.75 mg/0.5 mL pen injector Inject 0.75 mg subcutaneously one time a week. Inject dose once per week. Discard Pen After FLUoxetine (PROZAC) 20 mg capsule Take 1 capsule by mouth once daily. Take with 40 mg dose for total daily dose of 60 mg. (Patient not taking: Reported on 07/04/2024) hydroCHLOROthiazide 25 mg tablet Take 1 tablet by mouth once daily. losartan (COZAAR) 100 mg tablet Take 1 tablet by mouth once daily. metFORMIN ER (GLUCOPHAGE XR) 500 mg 24 hr tablet Take 2 tablets by mouth daily with breakfast. omeprazole (PRILOSEC) 20 mg capsule Take 1 capsule by mouth two times a day. Blood Pressure Monitor (BLOOD PRESSURE KIT) 1 Each as needed. ibuprofen (ADVIL) 200 mg tablet Take 200 mg by mouth every 6 hours as needed. acetaminophen (TYLENOL) 500 mg tablet Take 1,000 mg by mouth every 8 hours as needed. elderberry fruit (ELDERBERRY ORAL) Take 1,000 mg by mouth once daily. Blood Pressure Cuff - Home Use BLOOD PRESSURE CUFF FOR HOME USE. DX: LABILE BLOOD PRESSURE ascorbic acid (VITAMIN C) 500 mg tablet Take 500 mg by mouth once daily. multivitamin tablet Take 1 tablet by mouth once daily. No current facility-administered medications on file prior to visit. BP 131/79 (BP Site: Right Arm, BP Position: Sitting, BP Cuff Size: Large Adult) Pulse (!) 122 Temp (!) 35.6 ?C (96.1 ?F) (Temporal) Resp 15 Ht 167.6 cm (5' 6") Wt 127.9 kg (282 lb) LMP 06/18/2024 (Exact Irvin (more content not included)...[facility]11-05-2024 History of Present illness Narrative* Arleth Alva APRN.CAST SHELL GRINDER - 07/17/2024 4:29 PM EST Plastic Surgery Post Op Note CC: post op HPI: Silvia Dixon is a 49 year old female who presents s/p Date of Surgery: 07/09/24 Surgery: Left Breast Oncoplastic Reduction and Right Breast Reduction for symmetry (Maintained previous Inferior Pedicles) Time Postop: 10 days Pt presents for initial post-op visit. Pain: control is good with medication. Drainage from incisions: denies Fever/chills: denies Antibiotics: no Drain output JPx 2: <15cc per day x48 hours Activity: able to participate in ADLs within recommended restrictions Appetite: improving denies concerns Hx Radiation Therapy: Yes, completed 06/06/13 to 07/19/13 Hx Chemotherapy: Yes completed 03/23/2023 Surgical pathology reviewed: right breast reduction 992 g, left oncoplastic reduction 433 g FINAL DIAGNOSIS A. Breast, right, mammoplasty: - Unremarkable skin and breast tissue. B. Breast, left, mammoplasty: - Unremarkable skin and breast tissue. C. 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 sucralfate (CARAFATE) 1 gram tablet Take 1 tablet by mouth before meals and at bedtime. venlafaxine ER (EFFEXOR XR) 37.5 mg 24 hr capsule Week #1: take venlafaxine 37.5 mg with 40 mg of fluoxetine daily. Week #2: take venlafaxine 75 mg with 20 mg of fluoxetine daily. Week #3: increase venlafaxine to 150 mg daily and stop fluoxetine. venlafaxine ER (EFFEXOR XR) 150 mg 24 hr capsule Take 1 capsule by mouth once daily. (Start week #3). calcium-cholecalciferol, D3, (OSCAL+D 250) 250 mg-3.125 mcg (125 unit) per tablet Take 1 tablet by mouth two times a day. lancets (TRUEPLUS LANCETS) 30 gauge Use with blood glucose test once daily tiZANidine (ZANAFLEX) 4 mg tablet Take 1 tablet by mouth every 8 hours as needed (muscle spasms). blood sugar diagnostic (TRUE METRIX GLUCOSE TEST STRIP) test strip Use with blood glucose test oncedaily buPROPion SR (WELLBUTRIN SR) 150 mg 12 hr tablet Take 1 tablet by mouth once daily. dulaglutide (TRULICITY) 0.75 mg/0.5 mL pen injector Inject 0.75 mg subcutaneously one time a week. Inject dose once per week. Discard Pen After FLUoxetine (PROZAC) 20 mg capsule Take 1 capsule by mouth once daily. Take with 40 mg dose for total daily dose of 60 mg. (Patient not taking: Reported on 07/04/2024) hydroCHLOROthiazide 25 mg tablet Take 1 tablet by mouth once daily. losartan (COZAAR) 100 mg tablet Take 1 tablet by mouth once daily. metFORMIN ER (GLUCOPHAGE XR) 500 mg 24 hr tablet Take 2 tablets by mouth daily with breakfast. omeprazole (PRILOSEC) 20 mg capsule Take 1 capsule by mouth two times a day. Blood Pressure Monitor (BLOOD PRESSURE KIT) 1 Each as needed. ibuprofen (ADVIL) 200 mg tablet Take 200 mg by mouth every 6 hours as needed. acetaminophen (TYLENOL) 500 mg tablet Take 1,000 mg by mouth every 8 hours as needed. elderberry fruit (ELDERBERRY ORAL) Take 1,000 mg by mouth once daily. Blood Pressure Cuff - Home Use BLOOD PRESSURE CUFF FOR HOME USE. DX: LABILE BLOOD PRESSURE ascorbic acid (VITAMIN C) 500 mg tablet Take 500 mg by mouth once daily. multivitamin tablet Take 1 tablet by mouth once daily. No current facility-administered medications on file prior to visit. BP 131/79 (BP Site: Right Arm, BP Position: Sitting, BP Cuff Size: Large Adult) Pulse (!) 122 Temp (!) 35.6 C (96.1 F) (Temporal) Resp 15 Ht 167.6 cm (5' 6") Wt 127.9 kg (282 lb) LMP 06/18/2024 (Exact Date) SpO2 97% BMI 45.52 kg/m PE Alert and oriented in NAD on room air Bilateral breast incisions c/d/I and well approximated Bilateral breast soft, no fluid collections noted upon exam No s/s of infection GERARD x2 drains intact, patent, draining ss drainage The sensitive examination was discussed with the Patient or Patient's Authorized Assessment Expert. Asapplicable, any other physician, advance practice provider, medical student, or other health professional student that will be observing or involved in the sensitive examination for educational or training purposes was discussed with the Patient or Authorized Assessment Expert. The Patient or Authorized Assessment Expert has agreed to proceed with the sensitive examination. (Sensitive examination includes inspection and/or palpation of the breasts, pelvis, prostate and anorectal regions) ASSESSMENT/PLAN: Expected post operative course Doing well -consult to breast rehab at 4 weeks, orders placed. Please call [phone] to schedule, change, cancel or confirm an appointment. -GERARD drain removed X 2. DSD applied. Okay to shower in 24 hours. Apply antibiotic ointment to drain sites and cover with band aid until they are healed -Shower regularly to keep the incisions clean and inspect for signs of infection (due to decreased sensation) -Walking is encouraged, this helps to reduce swelling and lowers the chance of blood clots. If you were prescribed anticoagulation post operatively, please complete course as instructed -Activity restrictions reviewed with patient. Okay to raise arm above head at 4 weeks if you drainshave all been removed and you do not have any wound healing issues. No heavy lifting/pushing/pulling greater than 10 lbs for 6 weeks after surgery. Do not perform salesforce administrator such as laundry andvacuuming. Do not perform yard work. -Continue surgical bra, please wear tight closing compression bra 4-6 weeks following surgery -Continue compression garment- okay for spanx type garment -No water submersion/baths until all incisions are fully healed -Okay for driving if not taking any narcotic pain medication and you feel safe to maneuver a car - If you have steri strips over incisions, please leave these in place, they will peel back on their own. Should you have new drainage, spreading redness, odor, or pain in the area please let our office know and we will instruct you further -okay to sleep on your back and lie flat, do not sleep on the surgical side 3-4 weeks after recent procedure -Okay for tylenol alternating with ibuprofen for pain control (do not exceed 4 g tylenol in a 24 hour period, okay for ibuprofen 600-800 mg every 8 hours as needed for pain) Encouraged patient to communicate through [facility] for all non-urgent questions or concerns. If experiencing wound complications or have any questions or concerns during business hours call [phone] or after hours (after 5 pm or on the weekend) call [phone] and ask for the plastic surgery resident / fellow contact lens polisher for further instructions. If you have increasing swelling or bruising, particularly one side greater than the other. If swelling and redness persists after a few days. If you have increased redness along the incision. If you have severe or increased pain not relieved by medication. If you have an oral temperature of 100.4 degrees or higher. If you have any yellow or greenish drainage from the incisions or notice a foul smell. If you have bleeding from the incisions that is difficult to control with light pressure If you have new chest pain, shortness of breast or difficulty breathing Return to clinic in 1 week post drain removal- okay for virtual The patient is seen and examined by Arleth Alva APRN.CNP and the following reflects her service. Scribed by Melissa Pruitt RN I agree with the Chief Complaint, ROS, and Past Histories independently gathered by the clinical merchandise support associate and the remaining scribed note accurately describes my personal service to the patient. 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 and 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 turbine 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 and patient Staffing COMPLETIONS ENGINEER: Jeanne Stein APRN.COMPLETIONS ENGINEER Performed by: ARIADNA Indications and Patient Condition Indications for airway management: anesthesia Preoxygenated: yes anesthesia circuit Patient position: sniffing Method: asleep Cricoid Pressure: No Manual In-Line Stabilization: No Difficult Mask: No Final Airway Details Final airway type: endotracheal airway Final Endotracheal Airway: ETT Cuffed: yes Successful intubation technique: video laryngoscopy Devices used: Vsnap Endotracheal tube insertion site: oral Blade size: #3 ETT size (mm): 7.0 Measured from: teeth Measurement (cm): 22 Placement verified by: chest auscultation and capnometry Cormack-Lehane Classification: grade I - full view of glottis Number of attempts at approach: 1 Airway not difficult SIGNATURE: Jeanne Stein APRN.CRNA PATIENT NAME: Silvia Dixon DATE: July 09, 2024 TIME: 8:01 AM CS[facility]: [id number] History of Present illness Narrative* Conrado Pool, - 07/04/2024 11:48 AM EDT Elements copied from Kaitlin Manuel APRN.CAST SHELL GRINDER note dated 06/27/2024 have been reviewed and updated where appropriate, and all reflect current assessment and medical decision making during today's encounter. HPI: Silvia Dixon is a 49 year old female who presents here today for follow up breast cancer. H/o appreciated a lump in her left breast in the summer of 2011. She thought perhaps it was something benign based on a biopsy for a different lesion she had done when she was . However, thislump increased in size by July and then she noted further increase after the first of the year.Presented to 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 at [facility] and was referred here [...] elements including chondroid matrix production, see comment. JJR/slfaraz 11/24/2012 COMMENT Specimen Laterality: Left Procedure: Type: [...] LMP 12/2012. Pt. was on vacation in [facility] and had a large amount of vaginal bleeding-January 16, was seen in ED in [facility]. Has been taking tamoxifen. LMP:December 2012. Was seen by BAKER OPERATOR AUTOMATIC/Jan. Given Aygestin 5 mg for 12 days on 02/08/14. Bx done. Was admitted to [facility] for PE over the weekend February 16-. Told to stop aygestin 02/18/14. Current therapy:femara/zoladex. Started zoladex 05/28/14. LMP:04/14/14. Pt. had previously been on arimidex/aromasin-both stopped d/t joint/bones aches/pains. Completed xarelto therapy fall 2013. Had MRI breast in November 2020- neg. Although did show a ? liver lesion. MRI liver in December 2020-MANUEL. Presents for ongoing oncologic management. Interim history: Needs hematologic clearance for breast reduction surgery in light of history of PE. She developed PE while taking tamoxifen and started on Aygestin for significant menorrhagia. Recently saw her workforce management consultant who was concerned about perioperative anticoagulation due to ongoing menorrhagia. Thrombophilia testing in 09/2014 revealed mild increase in Factor VIII C. She completed 6 months of anticoagulation and has not had any venous thromboembolic events since. 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, s/p excisional biopsy, neoadjuvant chemotherapy, partial mastectomy and oncoplasticbreast reduction, and sentinel node biopsy, s/p radiation [...] LIG/TRNSXJ FLP TUBE ABDL/VAG APPR UNI/BI 11/27/2001 tubes tied MASTECTOMY, PARTIAL Left 04/12/2013 PAST SURGICAL HISTORY OF 11/12/2012 left breast lumpectomy REDUCTION OF LARGE BREAST Bilateral Breast reduction ALLERGIES Allergen Reactions Nitrofurantoin Hives, Other: See Comments Lisinopril Cough Phenazopyridine Hives, Other: See Comments Toradol [Ketorolac * Hives Current Outpatient Medications Medication Sig sucralfate (CARAFATE) 1 gram tablet Take 1 tablet by mouth before meals and at bedtime. venlafaxine ER (EFFEXOR XR) 150 mg 24 hr capsule Take 1 capsule by mouth once daily. (Start week #3). calcium-cholecalciferol, D3, (OSCAL+D 250) 250 mg-3.125 mcg (125 unit) per tablet Take 1 tablet by mouth two times a day. tiZANidine (ZANAFLEX) 4 mg tablet Take 1 tablet by mouth every 8 hours as needed (muscle spasms). buPROPion SR (WELLBUTRIN SR) 150 mg 12 hr tablet Take 1 tablet by mouth once daily. dulaglutide (TRULICITY) 0.75 mg/0.5 mL pen injector Inject 0.75 mg subcutaneously one time a week. Inject dose once per week. Discard Pen After hydroCHLOROthiazide 25 mg tablet Take 1 tablet by mouth once daily. losartan (COZAAR) 100 mg tablet Take 1 tablet by mouth once daily. metFORMIN ER (GLUCOPHAGE XR) 500 mg 24 hr tablet Take 2 tablets by mouth daily with breakfast. omeprazole (PRILOSEC) 20 mg capsule Take 1 capsule by mouth two times a day. ibuprofen (ADVIL) 200 mg tablet Take 200 mg by mouth every 6 hours as needed. acetaminophen (TYLENOL) 500 mg tablet Take 1,000 mg by mouth every 8 hours as needed. elderberry fruit (ELDERBERRY ORAL) Take 1,000 mg by mouth once daily. ascorbic acid (VITAMIN C) 500 mg tablet Take 500 mg by mouth once daily. multivitamin tablet Take 1 tablet by mouth once daily. venlafaxine ER (EFFEXOR XR) 37.5 mg 24 hr capsule Week #1: take venlafaxine 37.5 mg with 40 mg of fluoxetine daily. Week #2: take venlafaxine 75 mg with 20 mg of fluoxetine daily. Week #3: increase venlafaxine to 150 mg daily and stop fluoxetine. (Patient not taking: Reported on 07/04/2024) lancets (TRUEPLUS LANCETS) 30 gauge Use with blood glucose test once daily blood sugar diagnostic (TRUE METRIX GLUCOSE TEST STRIP) test strip Use with blood glucose test oncedaily FLUoxetine (PROZAC) 20 mg capsule Take 1 capsule by mouth once daily. Take with 40 mg dose for total daily dose of 60 mg. (Patient not taking: Reported on 07/04/2024) Blood Pressure Monitor (BLOOD PRESSURE KIT) 1 Each as needed. Lancets lancets Test blood sugar(s) 1 times daily. Dx: Type 2 DM - Uncontrolled E11.65 Insulin: No Blood Pressure Cuff - Home Use BLOOD PRESSURE CUFF FOR HOME USE. DX: LABILE BLOOD PRESSURE No current facility-administered medications for this visit. Social History Tobacco Use Smoking status: Never Smokeless tobacco: Never Vaping Use Vaping status: Never Used Substance Use Topics Alcohol use: Yes Comment: Seldom. a couple times a year Drug use: No Family History Problem Relation Age of Onset Diabetes Father Heart Father 54 heart attack, CHF 2017 Hypertension Father A-Fib Stroke Father 57 Obesity Father other (Congestive Heart Failure) Father Hypertension Mother A fib Stroke Mother 60 severe and has fully recovered Osteoporosis Mother Heart Maternal Grandfather CHF and Enlarged Heart Cancer Maternal Grandmother bone cancer Diabetes Maternal Grandmother Breast Cancer Maternal Grandmother 78 Heart Paternal Grandfather NE Diabetes Paternal Grandmother other (Lung Problems) Paternal Grandmother other (Rapid Airway Disease) Son Anesthesia Problems No Family History ROS: Constitutional: No fever. No drenching night sweats. Normal appetite. No unexplained weight loss. No significant fatigue. Neuro: No recent RIVERO, vertigo, dizziness or imbalance. No symptoms of sensory neuropathy. HEENT: No recent change in voice, vision or hearing. Resp: No cough, wheeze of hemoptysis. No shortness of breath at rest. No PENNY. CVS: No exertional chest pain, PND or orthopnea. No extremity swelling/edema. No symptoms of claudication. No painful or tender varicose veins. GI: No dysgeusia. No symptoms of stomatitis. No dysphagia or odynophagia. No reflux, n/v, change inbowel habits. No abdominal pain, bloating or distension. No black or bloody stools. : No dysuria or gross hematuria. No symptoms of bladder outlet obstruction. Endo: No hot flashes. No polyuria or polydipsia. No heat or cold intolerance. Musculoskeletal: No bone, back, joint and muscular pain. Derm: No current rash. No history of jaundice. No diffuse pruritis. Heme: No unusual bleeding and unexplained bruising. Psych: Normal mood. PHYSICAL EXAM: Vitals: Blood pressure 116/80, pulse 97, temperature 36.6 C (97.9 F), temperature source Temporal, weight 125.6 kg (277 lb), last menstrual period 06/18/2024, SpO2 94%. Well-appearing and in no acute distress. EYES: Sclerae are anicteric bilaterally. LYMPHATIC: There is no palpable cervical, supraclavicular, axillary adenopathy. RESPIRATORY: Inspiratory breath sounds are of normal intensity in all romero. CARDIOVASCULAR: Rhythm is regular. ABDOMEN: The abdomen is nondistended. ASSESSMENT/PLAN: (Z86.711) History of pulmonary embolism (primary encounter diagnosis) Assessment: -The patient is a 49-year-old female who in 2013 developed a pulmonary embolism when she was on tamoxifen for history of breast cancer. She has ongoing menorrhagia. Recent thrombophilia testing confirms mild elevation of factor VIII:C with normal CRP. -Caprini risk is high based on her history of PE, age and upcoming surgery. Still awaiting lupus anticoagulant testing. Nonetheless with her concern over potential bleeding, I would recommend routineVTE prophylaxis. If needs to stay overnight would use sequential compression devices. Plan: -Will follow-up with lupus anticoagulant interpretation when available this weekend and finalize recommendation prior to her surgery on Tuesday. Portions of this documentation were copied and pasted from previous office visit notes in order to provide a cohesive continuity of the history. The note has been reviewed and edited and updated as necessary. Conrado Pool DO documented in this encounterMer[facility]10-22-2024 Telephone encounter Note * Telephone Encounter - Carlito Jose - 07/03/2024 8:54 AM EDT Spoke with patient and scheduled office visit. Called Dr. Pool's patient to move to [employer] 11:30, left message for patient to call and confirm change. Noted in FYI [facility] Work Phone: [phone] 630-686410-22-2024 Miscellaneous Notes* Telephone Encounter - Carlito Jose - 07/03/2024 8:54 AM EDT Spoke with patient and scheduled office visit. Called Dr. Pool's patient to move to [employer] 11:30, left message for patient to call and confirm change. Noted in FYI * Telephone Encounter - Jacque Red LPN - 07/03/2024 8:41 AM EDT On 07/04/2024- please move Dr. Pool's 11:30 patient to [facility] (notify that patient please) and offer this patient that slot. Please make patient aware that this is the only appointment we have for her. Jacque Red LPN * Telephone Encounter - Carlito Jose - 07/03/2024 8:34 AM EDT Scheduled labs for patient. Informed we would call her back regarding office visit. Please advise, schedule is full. Dr. Pool is out on Tuesday. Surgery is 07/09 * Telephone Encounter - Jacque Red LPN - 07/03/2024 7:52 AM EDT PSS- please see Dr. Pool's note below and attempt to contact patient again for labs and OV. Jacque Red LPN * Telephone Encounter - Sybil Mack - 06/29/2024 3:43 PM EDT Called patient and left a vm to return our call * Telephone Encounter - Citlali Martínez LPN - 06/29/2024 2:04 PM EDT Please assist pt in making lab apt and OV. Citlali Martínez LPN * Telephone Encounter - Conrado Pool DO - 06/29/2024 1:13 PM EDT Please advise her to come in for lab work either later today if possible or Tuesday. She needs an office visit with me toward the end of next week. May have to move some patients to the 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's schedules. The lab work is to provide clearance for her upcoming surgery. Conrado Pool DO documented in this encounterMercy Health10-22-2024 Telephone encounter Note * Telephone Encounter - Jacque Red LPN - 07/03/2024 8:41 AM EDT On 07/04/2024- please move Dr. Pool's 11:30 patient to [place] (notify that patient please) and offer this patient that slot. Please make patient aware that this is the only appointment we have for her. Jacque Red LPN [facility]10-22-2024 Telephone encounter Note* Telephone Encounter - Carlito Jose - 07/03/2024 8:34 AM EDT Scheduled labs for patient. Informed we would call her back regarding office visit. Please advise, schedule is full. Dr. Pool is out on Tuesday. Surgery is 07/09 [facility]10-22-[facility]24 Telephone encounter Note* Telephone Encounter - Jacque Red LPN - 07/03/2024 7:52 AM EDT PSS- please see Dr. Pool's note below and attempt to contact patient again for labs and OV. 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 She reports she is preparing for Right breast mastopexy and corrective surgery on left breast at end of month. She has loss weight since our last visit and feels well. She is looking forward to having the asymmetry corrected DBT mammogram completed 01/20/24 with negative findings. She will follow up with Oncologist in 01/04. MRI of breast was completed 04/14/22 with benign findings. She was last seen by [facility] on 06/27/24 at which time she has completed Zoledex therapy. She stoppedFemara 12/09/21 due to joint aches and pains . She denies any breast masses, pain or nipple discharge. She denies any new family medical problems. History pertaining to prior breast biopsies, genetic reports, pathology reports, treatment summaries, personal, social and family history has been extracted from my note dated 07/14/21. She presented with left breast palpable mass in 2012. A bilateral diagnostic mammogram and US was performed on 11/09/12. A left breast nodule was noted. Subsequently, a ultrasound and excisional biopsy were performed with the following pathology results: Left breast, 4 cm Metaplastic carcinoma with heterologous elements including chondroid matrix production Nuclear Grade 3 ER+ (weak), NH- andHER2 ABSENT. She underwent neoadjuvant chemotherapy( Dr Pool). She subsequently underwent a Left NL PM with lymphatic mapping and bilateral oncoplastic reduction(Dr Li) and XRT. Her final pathology noted NO residual malignancy noted and 0/3 SLN. She took tamoxifen and arimidex briefly as she discontinued due to joint aches and pain. Her femarais currently on hold. She completed Zoladex . In 11/24, Silvia Dixon's clinical Integrated BRACAnalysis with myRisk was negative for a deleterious mutation. Her vitamin D level 05/26 was 33. She takes Multivitamin . PERSONAL BREAST HISTORY: Past breast history (prior to this encounter) is as follows: Breast biopsy: Yes, 2013-see above Breast cysts: No Breast surgery: Yes, 2013-see above Breast cancer: Yes, 2013-see above CANCER SURVEILLANCE: Mammograms: 01/20/2435-gnhzizi-Jkwhuhpi Breast MRI: 04/14/2245-Nteafcdm-lyuhbueydd findings as noted above Colonoscopy: 03/29/23: Diverticulosis-repeat 10 yrs RISK FACTORS FOR BREAST CANCER: Age at the onset of menses: 11.7 years of age. Age at the of first child: 24 years of age. Number of children: 2 ( sons) She did not breast feed Age at menopause: The patient is not menopausal at this time. 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 She is on Femara and Zoladex. Depression Diabetes (HCC) GERD (gastroesophageal reflux disease) hiatal hernia, egd Hiatal hernia 20 mg of Prilosec HTN (hypertension) PE (pulmonary embolism) Triggered by treatment for uterine bleeding. Xaralto for one year. Patient specifically denies history of: Migraine headaches, Abnormal uterine bleeding , Abnormal uterine biopsies , Osteopenia and Osteoporosis PAST SURGICAL HISTORY: PAST SURGICAL HISTORY Procedure Laterality Date COLONOSCOPY 03/29/2023 EGD 03/29/2023 INSJ TUNNELED CTR VAD W/SUBQ PORT AGE 5 YR/> 12/13/2012 Right Subclavian LIG/TRNSXJ FLP TUBE ABDL/VAG APPR UNI/BI 11/27/2001 tubes tied MASTECTOMY, PARTIAL Left 04/12/2013 PAST SURGICAL HISTORY OF 11/12/2012 left breast lumpectomy REDUCTION OF LARGE BREAST Bilateral Breast reduction SOCIAL HISTORY: Tobacco Use: Never Alcohol Use: No Caffeine intake: 2-3 sodas / day Exercise: Most days, 20-40 min FAMILY HISTORY: Family history of breast cancer: MGM at age 78- Family history of ovarian cancer: Negative Ashkenazi Ancestry:no Has Patient had Genetic Testing? Yes , Type of testing Integrated My Risk BRCA, Results Negative Have any Family Members had Genetic Testing? No Other Cancer: Maternal grandfather had bone cancer at age 81 There is no family history of prostate, colon, uterine, pancreatic, gastric, brain, renal cell or thyroid cancer. There is no family history of melanoma, sarcoma or leukemia. Osteoporosis: Mother age 60 living Stroke: Mother age 60 living and Father at age 57 Living Blood Clot: Negative Heart attack: Father age 54 living Thyroid Nodule or Goiter: Negative FAMILY HISTORY Problem Relation Age of Onset Diabetes Father Heart Father 54 heart attack, CHF 2017 Hypertension Father A-Fib Stroke Father 57 Obesity Father other (Congestive Heart Failure) Father Hypertension Mother A fib Stroke Mother 60 severe and has fully recovered Osteoporosis Mother Heart Maternal Grandfather CHF and Enlarged Heart Cancer Maternal Grandmother bone cancer Diabetes Maternal Grandmother Breast Cancer Maternal Grandmother 78 Heart Paternal Grandfather NE Diabetes Paternal Grandmother other (Lung Problems) Paternal Grandmother other (Rapid Airway Disease) Son Anesthesia Problems No Family History MEDICATIONS: sucralfate (CARAFATE) 1 gram tablet Take 1 tablet by mouth before meals and at bedtime. venlafaxine ER (EFFEXOR XR) 37.5 mg 24 hr capsule Week #1: take venlafaxine 37.5 mg with 40 mg of fluoxetine daily. Week #2: take venlafaxine 75 mg with 20 mg of fluoxetine daily. Week #3: increase venlafaxine to 150 mg daily and stop fluoxetine. venlafaxine ER (EFFEXOR XR) 150 mg 24 hr capsule Take 1 capsule by mouth once daily. (Start week #3). calcium-cholecalciferol, D3, (OSCAL+D 250) 250 mg-3.125 mcg (125 unit) per tablet Take 1 tablet by mouth two times a day. lancets (TRUEPLUS LANCETS) 30 gauge Use with blood glucose test once daily tiZANidine (ZANAFLEX) 4 mg tablet Take 1 tablet by mouth every 8 hours as needed (muscle spasms). blood sugar diagnostic (TRUE METRIX GLUCOSE TEST STRIP) test strip Use with blood glucose test oncedaily buPROPion SR (WELLBUTRIN SR) 150 mg 12 hr tablet Take 1 tablet by mouth once daily. dulaglutide (TRULICITY) 0.75 mg/0.5 mL pen injector Inject 0.75 mg subcutaneously one time a week. Inject dose once per week. Discard Pen After hydroCHLOROthiazide 25 mg tablet Take 1 tablet by mouth once daily. losartan (COZAAR) 100 mg tablet Take 1 tablet by mouth once daily. metFORMIN ER (GLUCOPHAGE XR) 500 mg 24 hr tablet Take 2 tablets by mouth daily with breakfast. omeprazole (PRILOSEC) 20 mg capsule Take 1 capsule by mouth two times a day. Blood Pressure Monitor (BLOOD PRESSURE KIT) 1 Each as needed. ibuprofen (ADVIL) 200 mg tablet Take 200 mg by mouth every 6 hours as needed. acetaminophen (TYLENOL) 500 mg tablet Take 1,000 mg by mouth every 8 hours as needed. elderberry fruit (ELDERBERRY ORAL) Take 1,000 mg by mouth once daily. Blood Pressure Cuff - Home Use BLOOD PRESSURE CUFF FOR HOME USE. DX: LABILE BLOOD PRESSURE ascorbic acid (VITAMIN C) 500 mg tablet Take 500 mg by mouth once daily. multivitamin tablet Take 1 tablet by mouth once daily. FLUoxetine (PROZAC) 20 mg capsule Take 1 capsule by mouth once daily. Take with 40 mg dose for total daily dose of 60 mg. Lancets lancets Test blood sugar(s) 1 times daily. Dx: Type 2 DM - Uncontrolled E11.65 Insulin: No ALLERGIES: ALLERGIES Allergen Reactions Nitrofurantoin Hives, Other: See Comments Lisinopril Cough Phenazopyridine Hives, Other: See Comments Toradol [Ketorolac * Hives REVIEW OF SYSTEMS: She denies chest pain, shortness of breath, persistent cough, severe headaches, unusual bony pains,abdominal pain or unintentional weight loss. The sensitive examination was discussed with the Patient or Patient's Authorized Assessment Expert. Asapplicable, any other physician, advance practice provider, medical student, or other health professional student that will be observing or involved in the sensitive examination for educational or training purposes was discussed with the Patient or Authorized Assessment Expert. The Patient or Authorized Assessment Expert has agreed to proceed with the sensitive examination. (Sensitive examination includes inspection and/or palpation of the breasts, pelvis, prostate and anorectal regions) PHYSICAL EXAM: LMP 06/18/2024 (Approximate) There is no height or weight on file to calculate BMI. General: well-nourished, healthy, obese, white, female, alert and oriented x 3, calm Skin: warm, dry, skin color, texture, turgor normal Head/Eyes: normocephalic, atraumatic and anicteric Lymph nodes- The supraclavicular, axillary, and cervical regions are free of significant lymphadenopathy. Right breast-The skin, nipple and areola appear normal. There is no skin dimpling with movement of the pectoralis. There is no nipple retraction. No discharge can be elicited. The parenchya is moderately fibrocystic. There is no dominant masses in the breast. The axillary tail is normal. There is no tenderness noted with palpation. S/p breast reduction mammoplasty with well healed incisions. R>L Left breast- S/p partial mastectomy with no evidence of local recurrence. Moderate XRT changes noted. Indentation along incision again noted chronically. The skin, nipple, and areola appear normal. There is no skin dimpling with movement of the pectoralis. There is no nipple retraction. No discharge can be elicited. The parenchyma is moderately fibrocystic. At the 12 o'clock position NAC there ispersist a plate like area of increased density (imaging 9/20 3.4 cm fat necrosis) and at the 11 o'clock position along incision there persist a 1.0 oval nodule ( imaging 10/15 fat necrosis).The axillary tail is normal. There is no tenderness noted with palpation. Chest: cl Cor: reg, no r/m/g IMAGING: Deferred:The breasts are almost entirely fatty. Assessment IMPRESSION/PLAN: Silvia Dixon is a 49 year old year old female with Bilateral Fibrocystic Breast Changes, History of Left Breast Cancer, Panel testing Negative, Breast Asymmetry and Stable Left Fat necrosis There is no evidence of malignancy. The clinical breast findings were discussed in detail. Breast MRI is NOT ROUTINELY recommended for screening following a cancer diagnosis and is NOT recommended for women who have undergone bilateral mastectomy procedures unless otherwise clinically indicated. MRI is recommended for breast cancer survivors with remaining breast tissue who: - Have a history of chest irradiation under the age of 30. - Carry germline mutations conferring increased cancer risk (BRCA1, BRCA2, PTEN, TP53, CDH1, STK11,PALB2, CHEK2, DAVID) Per [facility] High Risk Care Path recommendations, screening breast MRI may be considered for women underthe age of 65 with remaining breast tissue in the following situations: - Age at breast cancer diagnosis under 50 - Mammographically dense tissue (BI-RADS category 3 or 4) - History of invasive lobular breast cancer Given her age at time of diagnosis of breast cancer and her breast density clinically, I had ordered MRI Of Breast as she meets [facility] care path guidelines for continued surveillance. Her breast tissue is completely fatty replaced. I will order one MRI of breast of MOUNA to alternate with her next mammogram as she is having surgery 07/09/24. This will allow for healing as she reports the surgeon plans to remove some of the scar tissue from left breast She had clarified in past that she didn't have allergy to contrast dye Healthy lifestyle recommendations for continued breast health were reviewed to include: vitamin D3 1000 IU daily, limit alcohol consumption to less than 1 drink per day, exercise (minimum 30 min 3-5x/week) and weight control as indicated. I commended her weight loss efforts since our last visit Genetics referral made: no, completed my risk panel testing She will return in one year for clinical exam. She will follow up with oncology in 6 months. She will call me in the interim should she have any questions or concerns. I spent a total of 31 minutes on the date of the service which included preparing to see the patient, [id number] patient care, completing clinical documentation, obtaining and/or reviewing separately obtained history, performing a medically appropriate examination, counseling and educating the pat ient/family/caregiver, and ordering medications, tests, or procedures. Jade Mosqueda, MSN, CAST SHELL GRINDER- Medical Breast Specialist Women's Health Nurse Practitioner CC: Randy Zhang MD ([facility]) [address] [place] [id number] documented in this encounterMercy Health10-18-2024 Nurse Note* Bonnie Fontanez MA - 06/29/2024 2:07 PM EDT Last mammogram on: 01/20/24 Results: see report Is the patient active on MyChart Yes Electronically Signed By: Bonnie Fontanez MA In Department: [facility] REVIEW OF PATIENT HISTORY: OB History T2 L2 SAB0 IAB0 Ectopic0 Multiple0 Live Births0 Comment: Menarche: 13; Age at 1st : 24; Premenopausal FAMILY HISTORY Problem Relation Age of Onset Diabetes Father Heart Father 54 heart attack, CHF 2016 Hypertension Father A-Fib Stroke Father 57 Obesity Father other (Congestive Heart Failure) Father Hypertension Mother A fib Stroke Mother 60 severe and has fully recovered Osteoporosis Mother Heart Maternal Grandfather CHF and Enlarged Heart Cancer Maternal Grandmother bone cancer Diabetes Maternal Grandmother Breast Cancer Maternal Grandmother 78 Heart Paternal Grandfather NE Diabetes Paternal Grandmother other (Lung Problems) Paternal Grandmother other (Rapid Airway Disease) Son Anesthesia Problems No Family History 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 a couple times a year Drug use: No [facility]10-18-20[facility] Instructions* Patient Instructions* Bnonie Fontanez MA - 06/29/2024 2:07 PM EDT Thank you for trusting me with your breast care today. Please remember to schedule your follow-up visit as soon as possible. Discussed breast health recommendations including routine breast self-awareness, clinical breast exams; annual mammography, minimal alcohol use, no tobacco use and 150min / week of aerobic exercise per week as your heart, lungs and joints allow. Wearing a well fitting (as in getting an updated professional fitting if it is has been some time) supportive bra is helpful for most women as well. If you develop a breast lump, breast skin changes, nipple discharge or breast pain, please understand to call her breast health team for a clinical breast exam with the understanding that breast imaging may be recommended at that time. Your Breast Care Team, Jade Mosqueda CNP, Medical Breast Specialist Aminta Loaiza, RN [phone] ([place]) Bonnie Fontanez, Developer Designer [phone] ([place]) documented in this encounterMercy Health10-18-2024 Nurse Note* Bonnie Fontanez MA - 06/29/2024 2:07 PM EDT Last mammogram on: 01/20/24 Results: see report Is the patient active on MyChart Yes Electronically Signed By: Bonnie Fontanez MA In Department: [facility] REVIEW OF PATIENT HISTORY: OB History T2 L2 SAB0 IAB0 Ectopic0 Multiple0 Live Births0 Comment: Menarche: 13; Age at 1st : 24; Premenopausal FAMILY HISTORY Problem Relation Age of Onset Diabetes Father Heart Father 54 heart attack, CHF 2017 Hypertension Father A-Fib Stroke Father 57 Obesity Father other (Congestive Heart Failure) Father Hypertension Mother A fib Stroke Mother 60 severe and has fully recovered Osteoporosis Mother Heart Maternal Grandfather CHF and Enlarged Heart Cancer Maternal Grandmother bone cancer Diabetes Maternal Grandmother Breast Cancer Maternal Grandmother 78 Heart Paternal Grandfather NE Diabetes Paternal Grandmother other (Lung Problems) Paternal Grandmother other (Rapid Airway Disease) Son Anesthesia Problems No Family History 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 a couple times a year Drug use: No documented in this encounterMercy Health10-18-2024 Telephone encounter Note * Telephone Encounter - Citlali Martínez LPN - 06/29/2024 2:04 PM EDT Please assist pt in making lab apt and OV. Citlali Martínez LPN [facility]10-18-2024 Telephone encounter Note* Telephone Encounter - Conrado Pool DO - 06/29/2024 1:13 PM EDT Please advise her to come in for lab work either later today if possible or Tuesday. She needs an office visit with me toward the end of next week. May have to move some patients to the 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's schedules. The lab work is to provide clearance for her upcoming surgery. Conrado Pool DO [facility]10-18-2024 Telephone encounter Note* Telephone Encounter - Maia Cruz LPN - 06/29/2024 11:06 AM EDT Prescription Refill Information The patient has been identified by name and date of : Yes Caregiver verified no other encounters exist for this prescription request: Yes Caregiver confirmed with patient/requestor that no other refills are due, in the near future, with this provider at this time: Yes The last office visit in the department: 06/13/2024 Does the patient have a future office visit with this provider/department: Yes Requested Prescriptions Pending Prescriptions Disp Refills sucralfate (CARAFATE) 1 gram tablet 60 tablet 0 Sig: Take 1 tablet by mouth before meals and at bedtime. Maia Cruz LPN June 29, 2024 11:07 AM [facility]10-18-2024 Miscellaneous Notes* Telephone Encounter - Maia Cruz LPN - 06/29/2024 11:06 AM EDT Prescription Refill Information The patient has been identified by name and date of : Yes Caregiver verified no other encounters exist for this prescription request: Yes Caregiver confirmed with patient/requestor that no other refills are due, in the near future, with this provider at this time: Yes The last office visit in the department: 06/13/2024 Does the patient have a future office visit with this provider/department: Yes Requested Prescriptions Pending Prescriptions Disp Refills sucralfate (CARAFATE) 1 gram tablet 60 tablet 0 Sig: Take 1 tablet by mouth before meals and at bedtime. Maia Cruz LPN June 29, 2024 11:07 AM documented in this encounterMer[facility]10-[facility]24 Telephone encounter Note * Telephone Encounter - Linda Dugan MD - 06/28/2024 11:53 AM EDT I spoke with her current Director Account Management. She states that she had been given control pills for menorrhagia and that provoked a PE. Her workforce management consultant states that she has intermittent heavy periods that would put her at in increased risks for bleeding if she were to be placed on anticoagulation. I will reach out to Kaitlin Manuel with her oncology team to discuss. Linda Dugan MD [facility] Work Phone: [phone] Miscellaneous Notes* Telephone Encounter - Linda Dugan MD - 06/28/2024 11:53 AM EDT I spoke with her current Director Account Management. She states that she had been given control pills for menorrhagia and that provoked a PE. Her workforce management consultant states that she has intermittent heavy periods that would put her at in increased risks for bleeding if she were to be placed on anticoagulation. I will reach out to Kaitlin Manuel with her oncology team to discuss. Linda Dugan MD documented in this encounterMercy Health10-16-2024 History of Present illness Narrative* Kaitlin Manuel APRN.CAST SHELL GRINDER - 06/27/2024 1:01 PM EDT Chief Complaint Patient presents with: Established Patient HPI: Silvia Dixon is a 49 year old female who presents here today for follow up breast cancer. Per Dr. Pool's previous note: H/o appreciated a lump in her left breast in the summer of 2011. She thought perhaps it was something benign based on a biopsy for a different lesion she had done when she was . However, thislump increased in size by July and then she noted further increase after the first of the year.Presented to 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 [facility] and was referred here [...] elements including chondroid matrix production, see comment. JJRoberta/paulino 11/24/2012 COMMENT Specimen Laterality: Left Procedure: Type: [...] LMP 12/2012. Pt. was on vacation in [facility] and had a large amount of vaginal bleeding-January 16, was seen in ED in [facility]. Has been taking tamoxifen. LMP:December 2012. Was seen by BAKER OPERATOR AUTOMATIC/Jan. Given Aygestin 5 mg for 12 days on 02/08/14. Bx done. Was admitted to [facility] for PE over the weekend February 16-. Told to stop aygestin 02/18/14. Current therapy:femara/zoladex. Started zoladex 05/28/14. LMP:04/14/14. Pt. had previously been on arimidex/aromasin-both stopped d/t joint/bones aches/pains. Completed xarelto therapy fall 2013. Had MRI breast in November 2020- neg. Although did show a ? liver lesion. MRI liver in December 2020-MANUEL. No new concerns today. Pt. here with family member. Pt. having b/l breast reduction by Dr. Dugan later this month. Appetite:"Pretty good." Energy level:"Pretty good." Denies fevers or recent illness. Resp:denies cough or sob Cardiac:denies chest pain/palpitations GI:denies abd pain, n/v, last EGD/Cscope done March 2023-next due in 10 years, moving bowels regularly :denies dysuria/hematuria Extrem:denies pain to back/bones/joints Endo:+hot flashes Neuro:finger tip tingling-stable Skin:denies rashes/lesions Heme:"I had to go to the hospital for bleeding." TuesdayJun.18. Irreg. heavy- last menses November then 2023. B[employer] OPERATOR [employer] following. The ROS is otherwise negative. Past medical history, appointments, medications, allergies reviewed. No changes. EXAM: BP 112/75 Pulse 110 Temp 36.5 C (97.7 F) (Temporal) Wt 123.8 kg (272 lb 14.9 oz) LMP 12/01/2022 (Approximate) SpO2 95% BMI 44.05 kg/m APPEARANCE Well appearing, alert, in no acute distress, well-hydrated, well nourished. HEART RRR with normal S1 and S2, no murmurs LUNG clear to auscultation BREAST FEMALE R no mass/nodule/surgical scars, L stable 3cm mass to upper/radiation changes/surgical scars, b/l fibrocystic changes LYMPH NODES No cervical lymphadenopathy, No supraclavicular lymphadenopathy, and No axillary lymphadenopathy. ABDOMEN obese, bowel sounds normoactive, soft, non-tender EXTREMITIES No edema NEURO Awake, alert and oriented x 3, Normal gait, and No involuntary motions. SKIN Skin color, texture, turgor normal, no suspicious rashes or lesions ASSESSMENT/PLAN: 1. Encounter for follow-up surveillance of breast cancer - ICD9: V67.9, V10.3, ICD10: Z08, Z85.3 (primary diagnosis) 2. Personal history of breast cancer - ICD9: V10.3, ICD10: Z85.3 cT2 N0 MX ER/NH/HER2 pending metaplastic carcinoma of the left breast. - No concerning findings on exam. - Completed AI/zoladex therapy. - Stopped femara 12/09/21. She did not tolerate AI's d/t joint pain. She began tamoxifen 2012. - Imaging/mamm/MRI per breast center. - H/o PE provoked by BCP-will discuss the need for anti coagulation after surgery with Dr. Pool. - Follow up with PCP/[employer] OPERATOR AUTOMATIC as scheduled. - Follow up with Dr. Dugan as scheduled. - Needs follow up with breast center-[facility]. - Follow up in 6 months. - Pt. aware to call office with any questions/concerns. The sensitive examination was discussed with the Patient or Patient's Authorized Assessment Expert. Asapplicable, any other physician, advance practice provider, medical student, or other health professional student that will be observing or involved in the sensitive examination for educational or training purposes was discussed with the Patient or Authorized Assessment Expert. The Patient or Authorized Assessment Expert has agreed to proceed with the sensitive examination. (Sensitive examination includes inspection and/or palpation of the breasts, pelvis, prostate and anorectal regions) The patient indicates understanding of these issues and agrees with the plan. All documentation from previous visit of 12/29/23-Dr. Pool/myself was copied and pasted, documentation has been reviewed and edited as necessary for today's visit. Kaitlin Manuel APRN.CNP documented in this encounterMercy Health10-03-2024 Instructions* Patient Instructions* Tameka Kunz APRN.CNP - 06/14/2024 11:52 AM EDT PATIENT PREOPERATIVE INSTRUCTIONS No ref. provider found has scheduled you for your procedure at this surgery center: If no call by 4pm the day before surgery, please call this number. [facility]: [phone] --[address] [place] [address] Location is near [facility]. Please read below carefully for your personalized instructions. Dietary Restrictions: - No solid food after midnight. - You may have 12 ounces of clear liquids (water, clear juices such as apple juice or gatorade, carbonated beverages, clear tea, black coffee, jello) until 2 hours before scheduled arrival at facility. - Do not drink any alcohol after midnight the night before your surgery. Medications: Unless instructed differently below, stay on all of your medications until your surgery. If you start any new medications after today's visit, please contact your surgeon. Pre-Surgery Med Instructions Medication Instructions venlafaxine ER (EFFEXOR XR) 37.5 mg 24 hr capsule Take the day of surgery with a small sip of water venlafaxine ER (EFFEXOR XR) 150 mg 24 hr capsule Take the day of surgery with a small sip of water sucralfate (CARAFATE) 1 gram tablet Take the day of surgery with a small sip of water calcium-cholecalciferol, D3, (OSCAL+D 250) 250 mg-3.125 mcg (125 unit) per tablet Stop 7 days before surgery tiZANidine (ZANAFLEX) 4 mg tablet Okay to take the night before surgery if needed, do not take on the morning of surgery buPROPion SR (WELLBUTRIN SR) 150 mg 12 hr tablet Take the day of surgery with a small sip of water dulaglutide (TRULICITY) 0.75 mg/0.5 mL pen injector Do not take within 7 days of surgery FLUoxetine (PROZAC) 20 mg capsule Take the day of surgery with a small sip of water FLUoxetine (PROZAC) 40 mg capsule Take the day of surgery with a small sip of water hydroCHLOROthiazide 25 mg tablet Do not take the day of surgery losartan (COZAAR) 100 mg tablet Do not take the evening before surgery or the morning of surgery metFORMIN ER (GLUCOPHAGE XR) 500 mg 24 hr tablet Do not take the day of surgery omeprazole (PRILOSEC) 20 mg capsule Take the day of surgery with a small sip of water ibuprofen (ADVIL) 200 mg tablet Stop 7 days before surgery acetaminophen (TYLENOL) 500 mg tablet Ok to take morning of surgery if needed elderberry fruit (ELDERBERRY ORAL) Stop 7 days before surgery ascorbic acid (VITAMIN C) 500 mg tablet Stop 7 days before surgery multivitamin tablet Stop 7 days before surgery If you take any medications for erectile dysfunction-Cialis (Tadalafil), Levitra, Staxyn (Vardenafil) Viagra (Sildenenafil please do not take these for 48 hours before surgery. If you start any new medications after today's visit, please contact the surgeon's office. Blood Thinning Medications: - Stop NSAIDS (Ibuprofen, Advil, Aleve, Motrin, Celebrex, Mobic, etc.) 7 days before surgery, as directed by your surgeon. - Stop Aspirin 7 days before surgery, as directed by your surgeon. - Stop Vitamin E, ALL multi-vitamins, herbals and dietary supplements 7 days before surgery. - You may take Tylenol (Acetaminophen) or any of your pain medications that do not contain aspirin or NSAIDS as needed. Important Reminders: - If you use CPAP/BIPAP, bring the machine with you to the surgery center. - If you are prescribed inhalers for breathing, continue using them. - Candy, mints, and tobacco products are NOT permitted the morning of surgery. - Hearing aids, dentures and glasses may be worn the morning of surgery. - NO jewelry, body piercings, makeup, hairpins or contacts are to be worn the day of surgery. - NO lotions, creams, ointments, or deodorant are to be worn the day of surgery. If you develop symptoms such as a fever, cold, or flu, or have other changes to your health within TWO DAYS of scheduled surgery or the morning of surgery, please contact the surgery center above. Personal Belongings: -Please have photo ID and insurance cards. -If you do not have a copy of advance directives on file with us, please bring a copy with you on the day of surgery. - Leave ALL valuables and money at home or with family members. For Outpatient Procedures: - YOU MUST HAVE A RESPONSIBLE PARCEL POST OFFICER TAKE YOU HOME. A AIRPLANE ENGINEER OR GUM PULLER CANNOT BE MADE A RESPONSIBLE PARCEL POST OFFICER. - We recommend that a responsible person stays with you overnight to take care of you. - You cannot stay in a hotel alone after outpatient surgery. You will not be permitted to have yoursurgery, if you do not have someone to take care of you. Arrival Time for Surgery: - The Surgery Center or hospital where you are having surgery will call the afternoon before surgery (or Tuesday for Tuesday surgery) with a scheduled arrival time. - If you have not heard by 4 pm, please contact the surgery center above. Please be aware that emergency situations arise, which may delay or change your surgical time. If this happens, we will notify you as soon as possible and regret any inconvenience. If you already have an Advance Directive, please fax a copy to [phone] or email to for it to be added to your chart. If you do not have an Advance Directive, you can find the appropriate form and more information at [email or web address]. We recommend that youcomplete the Advance Directive form found on the website and bring it with you the day of your surgery. It can be witnessed and scanned into your chart that day. Tameka Kunz APRN.CNP documented in this encounterMercy Health10-03-2024 History and physical note * Tameka Kunz APRN.CNP - 06/14/2024 11:20 AM EDT Images from the original note were not included. [facility] HISTORY AND PHYSICAL EXAMINATION SERVICE DATE: 06/14/2024 SERVICE TIME: 11:38 AM PRIMARY CARE PHYSICIAN: Randy Zhang MD Assessment Patient has the following medical conditions which may affect florencia-operative course: PONV (postoperative nausea and vomiting) Patient endorses nausea postoperatively Type 2 diabetes mellitus with hyperglycemia, without long-term current use of insulin (HCC) Managed on trulicity, metformin' FBS 90 Last hgb A1c from January was 5.0 Hgb A1c pending today Obesity, Class III, BMI >= 40 BMI 43.77 Patient taking trulicity once weekly for weight loss and Dmt2 Hiatal hernia with GERD without esophagitis Managed on sucralfate and omeprazole HTN (hypertension) Managed on losartan, hctz Bp today 130/67 Denies cardiac symptoms EKG pending today Personal history of other venous thrombosis and embolism (CODE) 2018 PE- completed 1 year AC treatment Anxiety and depression Managed on RX [place] Activity Status Index: METS: Walk indoors, such as around the house (1.75 METs) Do light work around the house, such as dusting or washing dishes (2.70 METs) Take care of self; that is eating, dressing, bathing, using the toilet (2.75 METs) Walk a block or two on level ground (2.75 METs) Do moderate work around the house, such as vacuuming, sweeping floors, or carrying in groceries (3.50 METs) Climb a flight of stairs or walk up a hill (5.50 METs) DASI Score: 18.95 Patient denies any chest pain or undue shortness of breath with the above physical activity. Clinical Frailty Scale: 2. Well STOP-Bang Score: Has or is being treated for high blood pressure BMI greater than 35 kg/m^2 Has a large neck Denies snoring loudly Denies feeling tired, fatigued, or sleepy during the daytime Has not been observed to stop breathing or choking/gasping during sleep Patient 50 years old or younger Non-male patient STOP-Bang Score: 3 [id number] Score: Hypertension history: Yes Diabetes history: Yes [id number] Score: ANESTHESIA FINDINGS: Intubation History: No history of difficult intubation. No abnormal airway history Significant Anesthesia Considerations: potential postop nausea/vomiting Airway History: No history of difficult airway No abnormal airway history I - PHYSICAL EVALUATION AIRWAY Patient intubated: No. Tracheostomy tube not present Mallampati: II. TM distance: >3 FB. Neck ROM: full ROM without neurological symptoms. Mouth opening: adequate. Short neck: yes. Thick neck: yes Torres present: no Lip Bite Test: I Microretrognathia/Micronagthia/Recessed Chin: No DENTAL Dental findings: teeth intact and missing tooth/teeth. II - ANESTHESIA PLAN Anesthetic plan additional comments: *PACC/TCI - anesthesia choice. Beta Jj Monitoring Plan Post Procedure Analgesic Plan Prepared for Surgery: optimally prepared for surgery, pending [see comment]. BMP, CBC, hgb A1c ordered by me EKG ordered by me CONSULTS: Patient does not require consults for optimization at this time Planned Anesthetic: anesthesia choice The Following Tests/Procedures Have Been Initiated: Orders Placed This Encounter BMP Standing Status: Future Standing Expiration Date: 09/13/2024 CBC Standing Status: Future Standing Expiration Date: 09/13/2024 Hemoglobin A1C Standing Status: Future Standing Expiration Date: 09/13/2024 ECG COMPLETE REASON FOR VISIT: Silvia Dixon is a 49 year old female who is scheduled for Procedure(s): REDUCTION BREAST BILATERAL (Bilateral) at the request of Linda Randall MD for consultation. Myfinal recommendation will be communicated back to the requesting physician by way of shared medicalrecord or letter. Subjective The patient has the following: COVID-19 Immunization Status Overdue - Covid-19 Vaccine () Never done 02/08/2024 Postponed until 02/07/2025 by Dinora Riojas (Declined at this time) 01/15/2023 Postponed until 01/16/2024 by Randy Zhang MD (Declined at this time) CHIEF COMPLAINT: Preop exam HPI: Silvia Dixon is a 49 year old female. Presents to PACC today for preop exam. Patient is scheduled for the above procedure on 07/09/24. Patient scheduled for Breast reduced and small amount of tissue removal- necrosed area on L breast. Denies fevers, chills, chest pain, and SOB. REVIEW OF SYSTEMS: General: Morbid obesity Negative for: weight loss >10% of BW in last 6 months, malaise and fever. Neurological: Negative for: HAND PAINT MIXER tumor, delirium, dementia, headaches, multiple sclerosis, Parkinson's disease, seizures, TIA and strokes. Respiratory: Negative for: asthma, COPD, current cough, dyspnea, home oxygen, pneumonia within 6 weeks, tobacco use, URI < 2 weeks and obstructive sleep apnea. Cardiovascular: Positive for: DVT/PE and hypertension (losartan, hctz) Negative for: angina, arrhythmia, CAD, chest pain, CHF, hyperlipidemia, recent NE, PVD, open heart surgery and valve surgery. GI: Positive for: GERD Negative for: abdominal pain, colon cancer, dysphagia, diverticulitis, heartburn, hepatitis, irritable bowel syndrome, inflammatory bowel disease, liver disease, nausea, pancreatitis, history of polyps, rectal cancer and vomiting. : Negative for: BPH, decreased stream, dysuria, flank pain, frequent urination, hematuria, hesitancy,urinary incontinence, nephrolithiasis, renal failure, self catheterization and urinary tract infection. 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 Endocrine: Positive for: diabetes mellitus. Patient's diabetes mellitus is controlled by oral agents. Negative for: diabetic neuropathy, hyperthyroidism, hypothyroidism, hyperparathyroidism and steroidfor chronic problem. Hematology: Negative for: anemia, bruises/bleeds easily, factor V Leiden, hemophilia, thrombocytopenia, von Willebrand disease and chronic anti-coagulation/platelet meds. Oncology: See HPI. Positive for: CA metastasis (hx L sided breast ca sp mastectomy, chemo, radiation in 2012). Negative for: chemo within 30 days. Psych: Positive for: anxiety (prozac, wellbutrin) and depression. Negative for: ADHD, bipolar disorder and drug dependency. Musculoskeletal: Positive for: back pain (tizanidine). Negative for: joint pain and swelling. Skin: Negative for: lesions, itching and rash. 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, s/p excisional biopsy, neoadjuvant chemotherapy, partial mastectomy and oncoplasticbreast reduction, and sentinel node biopsy, s/p radiation [...] LIG/TRNSXJ FLP TUBE ABDL/VAG APPR UNI/BI 11/27/2001 tubes tied MASTECTOMY, PARTIAL Left 04/12/2013 PAST SURGICAL HISTORY OF 11/12/2012 left breast lumpectomy REDUCTION OF LARGE BREAST Bilateral Breast reduction FAMILY HISTORY Problem Relation Age of Onset Diabetes Father Heart Father 54 heart attack, CHF 2017 Hypertension Father A-Fib Stroke Father 57 Obesity Father other (Congestive Heart Failure) Father Hypertension Mother A fib Stroke Mother 60 severe and has fully recovered Osteoporosis Mother Heart Maternal Grandfather CHF and Enlarged Heart Cancer Maternal Grandmother bone cancer Diabetes Maternal Grandmother Breast Cancer Maternal Grandmother 78 Heart Paternal Grandfather NE Diabetes Paternal Grandmother other (Lung Problems) Paternal Grandmother other (Rapid Airway Disease) Son Anesthesia Problems No Family History Social History Tobacco Use Smoking status: Never Smokeless tobacco: Never Vaping Use Vaping status: Never Used Substance Use Topics Alcohol use: Yes Comment: Seldom. a couple times a year Drug use: No Prior to Admission medications as of 06/14/24 1140 Medication Sig Last Dose Taking venlafaxine ER (EFFEXOR XR) 37.5 mg 24 hr capsule Week #1: take venlafaxine 37.5 mg with 40 mg of fluoxetine daily. Week #2: take venlafaxine 75 mg with 20 mg of fluoxetine daily. Week #3: increase venlafaxine to 150 mg daily and stop fluoxetine. Taking Yes venlafaxine ER (EFFEXOR XR) 150 mg 24 hr capsule Take 1 capsule by mouth once daily. (Start week #3). Taking Yes sucralfate (CARAFATE) 1 gram tablet Take 1 tablet by mouth before meals and at bedtime. Taking Yes calcium-cholecalciferol, D3, (OSCAL+D 250) 250 mg-3.125 mcg (125 unit) per tablet Take 1 tablet by mouth two times a day. Taking Yes tiZANidine (ZANAFLEX) 4 mg tablet Take 1 tablet by mouth every 8 hours as needed (muscle spasms). Taking Yes buPROPion SR (WELLBUTRIN SR) 150 mg 12 hr tablet Take 1 tablet by mouth once daily. Taking Yes dulaglutide (TRULICITY) 0.75 mg/0.5 mL pen injector Inject 0.75 mg subcutaneously one time a week. Inject dose once per week. Discard Pen After Taking Yes FLUoxetine (PROZAC) 20 mg capsule Take 1 capsule by mouth once daily. Take with 40 mg dose for total daily dose of 60 mg. Taking Yes FLUoxetine (PROZAC) 40 mg capsule Take 1 capsule by mouth once daily. Taking Yes hydroCHLOROthiazide 25 mg tablet Take 1 tablet by mouth once daily. Taking Yes losartan (COZAAR) 100 mg tablet Take 1 tablet by mouth once daily. Taking Yes metFORMIN ER (GLUCOPHAGE XR) 500 mg 24 hr tablet Take 2 tablets by mouth daily with breakfast. Taking Yes omeprazole (PRILOSEC) 20 mg capsule Take 1 capsule by mouth two times a day. Taking Yes ibuprofen (ADVIL) 200 mg tablet Take 200 mg by mouth every 6 hours as needed. Taking Yes acetaminophen (TYLENOL) 500 mg tablet Take 1,000 mg by mouth every 8 hours as needed. Taking Yes elderberry fruit (ELDERBERRY ORAL) Take 1,000 mg by mouth once daily. Taking Yes ascorbic acid (VITAMIN C) 500 mg tablet Take 500 mg by mouth once daily. Taking Yes multivitamin tablet Take 1 tablet by mouth once daily. Taking Yes Blood-Glucose Sensor (FREESTYLE ALTHEA 3 SENSOR) roney 1 Each as directed. lancets (TRUEPLUS LANCETS) 30 gauge Use with blood glucose test once daily blood sugar diagnostic (TRUE METRIX GLUCOSE TEST STRIP) test strip Use with blood glucose test oncedaily Blood Pressure Monitor (BLOOD PRESSURE KIT) 1 Each as needed. Lancets lancets Test blood sugar(s) 1 times daily. Dx: Type 2 DM - Uncontrolled E11.65 Insulin: No Blood Pressure Cuff - Home Use BLOOD PRESSURE CUFF FOR HOME USE. DX: LABILE BLOOD PRESSURE No medication comments found. ALLERGIES Allergen Reactions Nitrofurantoin Hives, Other: See Comments Lisinopril Cough Phenazopyridine Hives, Other: See Comments Toradol [Ketorolac * Hives Objective PHYSICAL EXAM: General: alert and oriented, healthy appearance and morbidly obese. Pertinent negatives noted - notdistressed. Skin: normal color, no rash or lesions. HEENT: EOM intact and pupils equal round. Cardiovascular: regular rate and rhythm, normal S1 and S2, no rub, murmurs, or gallop. Respiratory: normal breath sounds, no wheezes or crackles. No chest wall deformity or tenderness. Abdomen: Extremities: no deformity, no edema or tenderness, no joint swelling or clubbing. Neurological: normal cognition and motor skills. Gait normal. No weakness or sensory deficit. PAIN ASSESSMENT: VITALS: BP 130/67 Pulse 88 Temp (Src) 97.8 (Temporal) Ht 5' 6" (1.68m) Wt 271 lb 2.7 oz (123.0kg) SpO2 97% LMP 12/01/2022 BMI 43.79 kg/(m^2). Diagnostic tests reviewed for today's visit: Lab Value Units Date High Low HB No results within date range. HCT No results within date range. WBC No results within date range. PLT No results within date range. NA 139 mmol/L 02/08/2024 144 136 K 4.0 mmol/L 02/08/2024 5.1 3.7 GLUC 90 mg/dL 02/08/2024 99 74 BUN 16 mg/dL 02/08/2024 21 7 CREAT 0.65 mg/dL 02/08/2024 0.96 0.58 PTSEC No results within date range. INR No results within date range. APTT No results within date range. ALT 25 U/L 02/08/2024 38 7 AST 20 U/L 02/08/2024 35 13 TBILI 0.9 mg/dL 02/08/2024 1.3 0.2 TSH No results within date range. Lab Value Units Date High Low HCGQT No results within date range. UHCG No results within date range. HCG, BODY* No results within date range. Lab Value Units Date High Low ABORHD No results within date range. ABSCREEN No results within date range. Hemoglobin A1C (%) Date Value 02/08/2024 5.0 08/01/2023 5.4 01/15/2023 5.5 04/23/2022 11.9 08/22/2019 5.7 Hemoglobin A1C (POCT) (%) Date Value 08/11/2022 5.6 No results found for this or any previous visit (from the past 8760 hour(s)). No results found for this or any previous visit (from the past 60551 hour(s)). Instructions Given to Patient: Instructions located in the after visit summary. Patient given verbal and written preop instructions and voices comprehension and compliance. SIGNATURE: Tameka Kunz APRN.CNP PATIENT NAME: Silvia Dixon DATE: June 14, 2024 TIME: 12:07 PM PAGER/CONTACT #: [facility] History and physical note* Tameka Kunz APRN.CNP - 06/14/2024 11:20 AM EDT Images from the original note were not included. [facility] HISTORY AND PHYSICAL EXAMINATION SERVICE DATE: 06/14/2024 SERVICE TIME: 11:38 AM PRIMARY CARE PHYSICIAN: Randy Zhang MD Assessment Patient has the following medical conditions which may affect florencia-operative course: PONV (postoperative nausea and vomiting) Patient endorses nausea postoperatively Type 2 diabetes mellitus with hyperglycemia, without long-term current use of insulin (HCC) Managed on trulicity, metformin' FBS 90 Last hgb A1c from January was 5.0 Hgb A1c pending today Obesity, Class III, BMI >= 40 BMI 43.77 Patient taking trulicity once weekly for weight loss and Dmt2 Hiatal hernia with GERD without esophagitis Managed on sucralfate and omeprazole HTN (hypertension) Managed on losartan, hctz Bp today 130/67 Denies cardiac symptoms EKG pending today Personal history of other venous thrombosis and embolism (CODE) 2018 PE- completed 1 year AC treatment Anxiety and depression Managed on RX [place] Activity Status Index: METS: Walk indoors, such as around the house (1.75 METs) Do light work around the house, such as dusting or washing dishes (2.70 METs) Take care of self; that is eating, dressing, bathing, using the toilet (2.75 METs) Walk a block or two on level ground (2.75 METs) Do moderate work around the house, such as vacuuming, sweeping floors, or carrying in groceries (3.50 METs) Climb a flight of stairs or walk up a hill (5.50 METs) DASI Score: 18.95 Patient denies any chest pain or undue shortness of breath with the above physical activity. Clinical Frailty Scale: 2. Well STOP-Bang Score: Has or is being treated for high blood pressure BMI greater than 35 kg/m^2 Has a large neck Denies snoring loudly Denies feeling tired, fatigued, or sleepy during the daytime Has not been observed to stop breathing or choking/gasping during sleep Patient 50 years old or younger Non-male patient STOP-Bang Score: 3 [id number] Score: Hypertension history: Yes Diabetes history: Yes [id number] Score: ANESTHESIA FINDINGS: Intubation History: No history of difficult intubation. No abnormal airway history Significant Anesthesia Considerations: potential postop nausea/vomiting Airway History: No history of difficult airway No abnormal airway history I - PHYSICAL EVALUATION AIRWAY Patient intubated: No. Tracheostomy tube not present Mallampati: II. TM distance: >3 FB. Neck ROM: full ROM without neurological symptoms. Mouth opening: adequate. Short neck: yes. Thick neck: yes Torres present: no Lip Bite Test: I Microretrognathia/Micronagthia/Recessed Chin: No DENTAL Dental findings: teeth intact and missing tooth/teeth. II - ANESTHESIA PLAN Anesthetic plan additional comments: *PACC/TCI - anesthesia choice. Beta Jj Monitoring Plan Post Procedure Analgesic Plan Prepared for Surgery: optimally prepared for surgery, pending [see comment]. BMP, CBC, hgb A1c ordered by me EKG ordered by me CONSULTS: Patient does not require consults for optimization at this time Planned Anesthetic: anesthesia choice The Following Tests/Procedures Have Been Initiated: Orders Placed This Encounter BMP Standing Status: Future Standing Expiration Date: 09/13/2024 CBC Standing Status: Future Standing Expiration Date: 09/13/2024 Hemoglobin A1C Standing Status: Future Standing Expiration Date: 09/13/2024 ECG COMPLETE REASON FOR VISIT: Silvia Dixon is a 49 year old female who is scheduled for Procedure(s): REDUCTION BREAST BILATERAL (Bilateral) at the request of Linda Randall MD for consultation. Myfinal recommendation will be communicated back to the requesting physician by way of shared medicalrecord or letter. Subjective The patient has the following: COVID-19 Immunization Status Overdue - Covid-19 Vaccine () Never done 02/08/2024 Postponed until 02/07/2025 by Dinora Riojas (Declined at this time) 01/15/2023 Postponed until 01/16/2024 by Randy Zhang MD (Declined at this time) CHIEF COMPLAINT: Preop exam HPI: Silvia Dixon is a 49 year old female. Presents to P[facility] today for preop exam. Patient is scheduled for the above procedure on 07/09/24. Patient scheduled for Breast reduced and small amount of tissue removal- necrosed area on L breast. Denies fevers, chills, chest pain, and SOB. REVIEW OF SYSTEMS: General: Morbid obesity Negative for: weight loss >10% of BW in last 6 months, malaise and fever. Neurological: Negative for: HAND PAINT MIXER tumor, delirium, dementia, headaches, multiple sclerosis, Parkinson's disease, seizures, TIA and strokes. Respiratory: Negative for: asthma, COPD, current cough, dyspnea, home oxygen, pneumonia within 6 weeks, tobacco use, URI < 2 weeks and obstructive sleep apnea. Cardiovascular: Positive for: DVT/PE and hypertension (losartan, hctz) Negative for: angina, arrhythmia, CAD, chest pain, CHF, hyperlipidemia, recent NE, PVD, open heart surgery and valve surgery. GI: Positive for: GERD Negative for: abdominal pain, colon cancer, dysphagia, diverticulitis, heartburn, hepatitis, irritable bowel syndrome, inflammatory bowel disease, liver disease, nausea, pancreatitis, history of polyps, rectal cancer and vomiting. : Negative for: BPH, decreased stream, dysuria, flank pain, frequent urination, hematuria, hesitancy,urinary incontinence, nephrolithiasis, renal failure, self catheterization and urinary tract infection. 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 Endocrine: Positive for: diabetes mellitus. Patient's diabetes mellitus is controlled by oral agents. Negative for: diabetic neuropathy, hyperthyroidism, hypothyroidism, hyperparathyroidism and steroidfor chronic problem. Hematology: Negative for: anemia, bruises/bleeds easily, factor V Leiden, hemophilia, thrombocytopenia, von Willebrand disease and chronic anti-coagulation/platelet meds. Oncology: See HPI. Positive for: CA metastasis (hx L sided breast ca sp mastectomy, chemo, radiation in 2012). Negative for: chemo within 30 days. Psych: Positive for: anxiety (prozac, wellbutrin) and depression. Negative for: ADHD, bipolar disorder and drug dependency. Musculoskeletal: Positive for: back pain (tizanidine). Negative for: joint pain and swelling. Skin: Negative for: lesions, itching and rash. 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, s/p excisional biopsy, neoadjuvant chemotherapy, partial mastectomy and oncoplasticbreast reduction, and sentinel node biopsy, s/p radiation [...] LIG/TRNSXJ FLP TUBE ABDL/VAG APPR UNI/BI 11/27/2001 tubes tied MASTECTOMY, PARTIAL Left 04/12/2013 PAST SURGICAL HISTORY OF 11/12/2012 left breast lumpectomy REDUCTION OF LARGE BREAST Bilateral Breast reduction FAMILY HISTORY Problem Relation Age of Onset Diabetes Father Heart Father 54 heart attack, CHF 2017 Hypertension Father A-Fib Stroke Father 57 Obesity Father other (Congestive Heart Failure) Father Hypertension Mother A fib Stroke Mother 60 severe and has fully recovered Osteoporosis Mother Heart Maternal Grandfather CHF and Enlarged Heart Cancer Maternal Grandmother bone cancer Diabetes Maternal Grandmother Breast Cancer Maternal Grandmother 78 Heart Paternal Grandfather NE Diabetes Paternal Grandmother other (Lung Problems) Paternal Grandmother other (Rapid Airway Disease) Son Anesthesia Problems No Family History Social History Tobacco Use Smoking status: Never Smokeless tobacco: Never Vaping Use Vaping status: Never Used Substance Use Topics Alcohol use: Yes Comment: Seldom. a couple times a year Drug use: No Prior to Admission medications as of 06/14/24 1140 Medication Sig Last Dose Taking venlafaxine ER (EFFEXOR XR) 37.5 mg 24 hr capsule Week #1: take venlafaxine 37.5 mg with 40 mg of fluoxetine daily. Week #2: take venlafaxine 75 mg with 20 mg of fluoxetine daily. Week #3: increase venlafaxine to 150 mg daily and stop fluoxetine. Taking Yes venlafaxine ER (EFFEXOR XR) 150 mg 24 hr capsule Take 1 capsule by mouth once daily. (Start week #3). Taking Yes sucralfate (CARAFATE) 1 gram tablet Take 1 tablet by mouth before meals and at bedtime. Taking Yes calcium-cholecalciferol, D3, (OSCAL+D 250) 250 mg-3.125 mcg (125 unit) per tablet Take 1 tablet by mouth two times a day. Taking Yes tiZANidine (ZANAFLEX) 4 mg tablet Take 1 tablet by mouth every 8 hours as needed (muscle spasms). Taking Yes buPROPion SR (WELLBUTRIN SR) 150 mg 12 hr tablet Take 1 tablet by mouth once daily. Taking Yes dulaglutide (TRULICITY) 0.75 mg/0.5 mL pen injector Inject 0.75 mg subcutaneously one time a week. Inject dose once per week. Discard Pen After Taking Yes FLUoxetine (PROZAC) 20 mg capsule Take 1 capsule by mouth once daily. Take with 40 mg dose for total daily dose of 60 mg. Taking Yes FLUoxetine (PROZAC) 40 mg capsule Take 1 capsule by mouth once daily. Taking Yes hydroCHLOROthiazide 25 mg tablet Take 1 tablet by mouth once daily. Taking Yes losartan (COZAAR) 100 mg tablet Take 1 tablet by mouth once daily. Taking Yes metFORMIN ER (GLUCOPHAGE XR) 500 mg 24 hr tablet Take 2 tablets by mouth daily with breakfast. Taking Yes omeprazole (PRILOSEC) 20 mg capsule Take 1 capsule by mouth two times a day. Taking Yes ibuprofen (ADVIL) 200 mg tablet Take 200 mg by mouth every 6 hours as needed. Taking Yes acetaminophen (TYLENOL) 500 mg tablet Take 1,000 mg by mouth every 8 hours as needed. Taking Yes elderberry fruit (ELDERBERRY ORAL) Take 1,000 mg by mouth once daily. Taking Yes ascorbic acid (VITAMIN C) 500 mg tablet Take 500 mg by mouth once daily. Taking Yes multivitamin tablet Take 1 tablet by mouth once daily. Taking Yes Blood-Glucose Sensor (ArchipelagoSTYLE ALTHEA 3 SENSOR) roney 1 Each as directed. lancets (TRUEPLUS LANCETS) 30 gauge Use with blood glucose test once daily blood sugar diagnostic (TRUE METRIX GLUCOSE TEST STRIP) test strip Use with blood glucose test oncedaily Blood Pressure Monitor (BLOOD PRESSURE KIT) 1 Each as needed. Lancets lancets Test blood sugar(s) 1 times daily. Dx: Type 2 DM - Uncontrolled E11.65 Insulin: No Blood Pressure Cuff - Home Use BLOOD PRESSURE CUFF FOR HOME USE. DX: LABILE BLOOD PRESSURE No medication comments found. ALLERGIES Allergen Reactions Nitrofurantoin Hives, Other: See Comments Lisinopril Cough Phenazopyridine Hives, Other: See Comments Toradol [Ketorolac * Hives Objective PHYSICAL EXAM: General: alert and oriented, healthy appearance and morbidly obese. Pertinent negatives noted - notdistressed. Skin: normal color, no rash or lesions. HEENT: EOM intact and pupils equal round. Cardiovascular: regular rate and rhythm, normal S1 and S2, no rub, murmurs, or gallop. Respiratory: normal breath sounds, no wheezes or crackles. No chest wall deformity or tenderness. Abdomen: Extremities: no deformity, no edema or tenderness, no joint swelling or clubbing. Neurological: normal cognition and motor skills. Gait normal. No weakness or sensory deficit. PAIN ASSESSMENT: VITALS: BP 130/67 Pulse 88 Temp (Src) 97.8 (Temporal) Ht 5' 6" (1.68m) Wt 271 lb 2.7 oz (123.0kg) SpO2 97% LMP 12/01/2022 BMI 43.79 kg/(m^2). Diagnostic tests reviewed for today's visit: Lab Value Units Date High Low HB No results within date range. HCT No results within date range. WBC No results within date range. PLT No results within date range. NA 139 mmol/L 02/08/2024 144 136 K 4.0 mmol/L 02/08/2024 5.1 3.7 GLUC 90 mg/dL 02/08/2024 99 74 BUN 16 mg/dL 02/08/2024 21 7 CREAT 0.65 mg/dL 02/08/2024 0.96 0.58 PTSEC No results within date range. INR No results within date range. APTT No results within date range. ALT 25 U/L 02/08/2024 38 7 AST 20 U/L 02/08/2024 35 13 TBILI 0.9 mg/dL 02/08/2024 1.3 0.2 TSH No results within date range. Lab Value Units Date High Low HCGQT No results within date range. UHCG No results within date range. HCG, BODY* No results within date range. Lab Value Units Date High Low ABORHD No results within date range. ABSCREEN No results within date range. Hemoglobin A1C (%) Date Value 02/08/2024 5.0 08/01/2023 5.4 01/15/2023 5.5 04/23/2022 11.9 08/22/2019 5.7 Hemoglobin A1C (POCT) (%) Date Value 08/11/2022 5.6 No results found for this or any previous visit (from the past 8760 hour(s)). No results found for this or any previous visit (from the past 15837 hour(s)). Instructions Given to Patient: Instructions located in the after visit summary. Patient given verbal and written preop instructions and voices comprehension and compliance. SIGNATURE: Tameka Kunz APRN.CNP PATIENT NAME: Silvia Dixon DATE: June 14, 2024 TIME: 12:07 PM PAGER/CONTACT #: [facility] History of Present illness Narrative* Linda Dugan MD - 06/14/2024 9:30 AM EDT Pre op CC: Pre op HPI: Silvia Dixon is a 49 year old female that presents today pre op visit. Surgery is scheduled on 07/09/24 for a bilateral breast reduction. BEST 02/08/24: Consult to hematology due to hx of PE to see recommendations for post op anticoagulation if needed, if these would be needed surgery needs to [facility] at [facility] PACC: Scheduled for today, 06/14/24 Hematology appointment: scheduled 06/27/24 Side of Diagnosis: hx of left breast cancer pathology results: Left breast, 4 cm Metaplastic carcinoma with heterologous elements including chondroid matrix production Nuclear Grade 3 ER+ (weak), NH- and HER2 ABSENT. Side of Reconstruction: Bilateral Prior Breast Surgery: 11/22/2012 Left needle localization excisional biopsy of left breast fibroadenoma (Dr. Foy) 04/12/2013 Left needle localization, partial mastectomy, sentinel node biopsy with bilateral breast reduction.(Dr. Li) Left partial mastectomy, left oncoplastic breast reduction, and right breast reduction (Dr. Alvarado) Hemoglobin A1C (%) Date Value 02/08/2024 5.0 08/22/2019 5.7 Hemoglobin A1C (POCT) (%) Date Value 08/11/2022 5.6 Type 2 diabetic - metformin and trulicity, hgbA1C redrawn today HTN - controlled with losartan LMP 12/01/2022 (Approximate) HISTORY OF BREAST DISEASE: Postive patient history of breast disease: see HPI FAMILY HISTORY OF BREAST CANCER: MGM at age 80- MAMMOGRAM: Yes, date: 01/20/2024, results: IMPRESSION: BENIGN FINDING There is no mammographic evidence of malignancy. A 1 year screening mammogram is recommended. HISTORY OF BLEEDING/CLOTTING/recurrent miscarriages (>3): PE right lung 2013 lovenox for a few weeks, oral ac for 1 year. 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 She is on Femara and Zoladex. Depression Diabetes (HCC) GERD (gastroesophageal reflux disease) hiatal hernia, egd Hiatal hernia 20 mg of Prilosec HTN (hypertension) PE (pulmonary embolism) Triggered by treatment for uterine bleeding. Xaralto for one year. MEDS: Current Outpatient Medications Medication Sig Dispense Refill sucralfate (CARAFATE) 1 gram tablet Take 1 tablet by mouth before meals and at bedtime. 60 tablet 0 calcium-cholecalciferol, D3, (OSCAL+D 250) 250 mg-3.125 mcg (125 unit) per tablet Take 1 tablet by mouth two times a day. 60 tablet 11 lancets (TRUEPLUS LANCETS) 30 gauge Use with blood glucose test once daily 100 Each 11 tiZANidine (ZANAFLEX) 4 mg tablet Take 1 tablet by mouth every 8 hours as needed (muscle spasms). 30 tablet 1 blood sugar diagnostic (TRUE METRIX GLUCOSE TEST STRIP) test strip Use with blood glucose test oncedaily 50 Strip 5 buPROPion SR (WELLBUTRIN SR) 150 mg 12 hr tablet Take 1 tablet by mouth once daily. 30 tablet 5 dulaglutide (TRULICITY) 0.75 mg/0.5 mL pen injector Inject 0.75 mg subcutaneously one time a week. Inject dose once per week. Discard Pen After 4 Each 5 FLUoxetine (PROZAC) 20 mg capsule Take 1 capsule by mouth once daily. Take with 40 mg dose for total daily dose of 60 mg. 30 capsule 5 FLUoxetine (PROZAC) 40 mg capsule Take 1 capsule by mouth once daily. 30 capsule 5 hydroCHLOROthiazide 25 mg tablet Take 1 tablet by mouth once daily. 30 tablet 5 losartan (COZAAR) 100 mg tablet Take 1 tablet by mouth once daily. 30 tablet 5 metFORMIN ER (GLUCOPHAGE XR) 500 mg 24 hr tablet Take 2 tablets by mouth daily with breakfast. 60 tablet 5 omeprazole (PRILOSEC) 20 mg capsule Take 1 capsule by mouth two times a day. 60 capsule 5 Blood Pressure Monitor (BLOOD PRESSURE KIT) 1 Each as needed. 1 Each 0 Lancets lancets Test blood sugar(s) 1 times daily. Dx: Type 2 DM - Uncontrolled E11.65 Insulin: No 100 Each 11 ibuprofen (ADVIL) 200 mg tablet Take 200 mg by mouth every 6 hours as needed. acetaminophen (TYLENOL) 500 mg tablet Take 1,000 mg by mouth every 8 hours as needed. elderberry fruit (ELDERBERRY ORAL) Take 1,000 mg by mouth once daily. Blood Pressure Cuff - Home Use BLOOD PRESSURE CUFF FOR HOME USE. DX: LABILE BLOOD PRESSURE 1 Each 0 ascorbic acid (VITAMIN C) 500 mg tablet Take 500 mg by mouth once daily. multivitamin tablet Take 1 tablet by mouth once daily. 0 No current facility-administered medications for this visit. Tobacco Use: No USE OF VITAMIN E, HERBS, ASA, NSAIDS: as needed EMPLOYMENT: Patient is not currently employed LMP 12/01/2022 (Approximate) EXAM: A&O x3, NAD Breast Exam: Asymmetry: R>L Masses: left breast fat necrosis superior to nipple 6 cm x 6 cm Axillary Lymphadenopathy: no Scars: matute pattern Ptosis: R: Grade III L: Grade III Note: measurements are in centimeters SN to NIPPLE: L 25.5 R: 32 IMF to NIPPLE: L: 12 R: 14.5 WIDTH: L: 13 R: 29 The sensitive examination was discussed with the Patient or Patient's Authorized Assessment Expert. Asapplicable, any other physician, advance practice provider, medical student, or other health professional student that will be observing or involved in the sensitive examination for educational or training purposes was discussed with the Patient or Authorized Assessment Expert. The Patient or Authorized Assessment Expert has agreed to proceed with the sensitive examination. (Sensitive examination includes inspection and/or palpation of the breasts, pelvis, prostate and anorectal regions) Assessment/Plan This is a 49 year old woman presents today for pre op exam prior to surgery scheduled on 07/09/24 for bilateral breast reduction Patient has a history of left breast cancer s/p partial mastectomy with oncoplastic reduction and right breast reduction for symmetry. Hx radiation to left breast and chemotherapy. An extensive discussion was undertaken with the patient detailing the risks, benefits and alternatives to breast reduction. Discussed that patient would probably benefit from bilateral breast fat grafting in the future Photos obtained BEST on 02/08/24 Consent obtained today The patient is seen and examined by Dr. Dugan and the following reflects his/her service. Scribed by Melissa Pruitt RN and Hoa Anderson RN I agree with the Chief Complaint, ROS, and Past Histories independently gathered by the clinical merchandise support associate and the remaining scribed note accurately describes my personal service to the patient. I spent 20 minutes in the visit, with more than 50% of the total [id number] time of the visit in counseling / coordination of care. BEST 02/08/24 She had left breast cancer with oncoplastic reduction and right breast reduction for symmetry by [facility] with inferior pedicle in 2012. She had radiation at that time. She since has left breast much smaller than the left and with some fat necrosis on the left superiorly. I discussed revision withinferior pedicle and removal of the fat necrosis on the left side. I discussed higher risks for wound healing issues in th setting of radiation. However, her skin quality is good so I think should decrease this risk somewhat. She had history of PE so I will want her to see Hematology to devise a perioperative plan. If postoperative anticoagulation is recommended I would want her done at [facility]. Today 06/14/24 She is planned for oncoplastic revision on 07/09. She has a history of PE and did not make her Hematology appt as they never called her. We replaced a media consultant I reached out to her Oncologist Dr Manuel to see if she can comment on a perioperative plan. Although, it does sound like she had a provoked PE as she was having menorrhagia her workforce management consultant gave her something to stop the bleeding anddeveloped PE after that. She has had no issues with VTE since then. I discussed risks and benefits of breast reduction including but not limited to: bleeding, infection, partial or full nipple loss, possible free nipple graft, fat necrosis, delayed wound healing, scarring, unacceptable cosmetic results, undesirable size, asymmetry and loss of breast feeding potential, and need for future breast reductions for breasts continuing to grow in size. Linda Dugan MD documented in this encounter[facility]10-02-[facility]24 Instructions* Patient Instructions* Savita Griffith APRN.CAST SHELL GRINDER - 06/13/2024 12:06 PM EDT Let change the fluoxetine to venlafaxine. Week #1: take venlafaxine 37.5 mg with 40 mg of fluoxetine daily. Week #2: take venlafaxine 75 mg with 20 mg of fluoxetine daily. Week #3: increase venlafaxine to 150 mg daily and stop fluoxetine. 2. Recheck in 6 weeks. documented in this encounter[facility]10-[facility]24 History of Present illness Narrative* Savita Griffith APRN.ALLAN - 06/13/2024 11:38 AM EDT This is a 49 year old female who presents today with: Patient presents with: Discussion: Discuss adjusting anxiety/depression medications HISTORY OF PRESENT ILLNESS: Silvia Dixon is a 49 year old female. Patient presents with: Discussion: Discuss adjusting anxiety/depression medications Pt presents today with complaint of worsening anxiety/depression. Doesn't feel like medications have been helping. She did see her [employer] and reports on edge of menopause. + hot flashes. Currently on prozac and wellbutrin. Suggested considering changing to effexor. Sleeping okay -- not good or bad. Not consistent. Sometimes hard to fall asleep. Sometimes up early. Appetite good. No SI/HI. Hot flashes primarily afternoon and sometimes at night. She is also interested in a CGM. She checks her sugars usually twice daily. She is currently on Trulicity. She can only use one hand to check her sugars and her other hand is getting sore. 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 calcium-cholecalciferol, D3, (OSCAL+D 250) 250 mg-3.125 mcg (125 unit) per tablet Take 1 tablet by mouth two times a day. lancets (TRUEPLUS LANCETS) 30 gauge Use with blood glucose test once daily tiZANidine (ZANAFLEX) 4 mg tablet Take 1 tablet by mouth every 8 hours as needed (muscle spasms). blood sugar diagnostic (TRUE METRIX GLUCOSE TEST STRIP) test strip Use with blood glucose test oncedaily buPROPion SR (WELLBUTRIN SR) 150 mg 12 hr tablet Take 1 tablet by mouth once daily. dulaglutide (TRULICITY) 0.75 mg/0.5 mL pen injector Inject 0.75 mg subcutaneously one time a week. Inject dose once per week. Discard Pen After FLUoxetine (PROZAC) 20 mg capsule Take 1 capsule by mouth once daily. Take with 40 mg dose for total daily dose of 60 mg. FLUoxetine (PROZAC) 40 mg capsule Take 1 capsule by mouth once daily. hydroCHLOROthiazide 25 mg tablet Take 1 tablet by mouth once daily. losartan (COZAAR) 100 mg tablet Take 1 tablet by mouth once daily. metFORMIN ER (GLUCOPHAGE XR) 500 mg 24 hr tablet Take 2 tablets by mouth daily with breakfast. omeprazole (PRILOSEC) 20 mg capsule Take 1 capsule by mouth two times a day. Blood Pressure Monitor (BLOOD PRESSURE KIT) 1 Each as needed. Lancets lancets Test blood sugar(s) 1 times daily. Dx: Type 2 DM - Uncontrolled E11.65 Insulin: No ibuprofen (ADVIL) 200 mg tablet Take 200 mg by mouth every 6 hours as needed. acetaminophen (TYLENOL) 500 mg tablet Take 1,000 mg by mouth every 8 hours as needed. elderberry fruit (ELDERBERRY ORAL) Take 1,000 mg [...] (Lung Problems) Paternal Grandmother Heart Paternal Grandfather NE Social History Tobacco Use Smoking status: Never Smokeless tobacco: Never Vaping Use Vaping status: Never Used Substance Use Topics Alcohol use: Yes Comment: Seldom. a couple times a year Drug use: No EXAM: BP 126/92 Pulse 88 Resp 16 Wt 122.9 kg (271 lb) LMP 12/01/2022 (Approximate) SpO2 94% BMI 44.34 kg/m PHYSICAL EXAM: General Appearance: Well appearing, alert, in no acute distress, well-hydrated, well nourished.. Skin: Skin color, texture, turgor normal, no suspicious rashes or lesions. Head: Normocephalic, no masses, lesions, tenderness or abnormalities. Eyes: Anicteric sclera. Extraocular movements are intact. . Neurologic: Gait normal. ASSESSMENT/PLAN: 1. Anxiety and depression - ICD9: 300.00, 311, ICD10: F41.9, F32.A (primary diagnosis) Will cross taper prozac and effexor. Continue wellbutrin. Recheck in 6 weeks. - VENLAFAXINE ER 37.5 MG CAPSULE,EXTENDED RELEASE 24 HR - VENLAFAXINE ER 150 MG CAPSULE,EXTENDED RELEASE 24 HR Week #1: take venlafaxine 37.5 mg with 40 mg of fluoxetine daily. Week #2: take venlafaxine 75 mg with 20 mg of fluoxetine daily. Week #3: increase venlafaxine to 150 mg daily and stop fluoxetine. 2. Hot flashes - ICD9: 782.62, ICD10: R23.2 As above. - VENLAFAXINE ER 37.5 MG CAPSULE,EXTENDED RELEASE 24 HR - VENLAFAXINE ER 150 MG CAPSULE,EXTENDED RELEASE 24 HR 3. Type 2 diabetes mellitus with hyperglycemia, without long-term current use of insulin (HCC) - ICD9: 250.00, 790.29, ICD10: E11.65 - Controlled - Continue current medications - FREESTYLE ALTHEA 3 SENSOR DEVICE Discussed treatment plan and patient voices understanding. Patient's questions answered appropriately. Medications and potential side effects were discussed and patient voices understanding. Return to the office as scheduled or as needed for worsening/no improvement. Savita Griffith APRN.ALLAN documented in this encounterMer[facility]09-16-[facility]24 Telephone encounter Note * Telephone Encounter - Charly Pyle LPN - 05/28/2024 11:36 AM EDT Prescription Refill Information The patient has been identified by name and date of : Yes Caregiver verified no other encounters exist for this prescription request: Yes Caregiver confirmed with patient/requestor that no other refills are due, in the near future, with this provider at this time: Yes The last office visit in the department: 02/08/24 Does the patient have a future office visit with this provider/department: Yes,08/17/24 Requested Prescriptions Pending Prescriptions Disp Refills sucralfate (CARAFATE) 1 gram tablet 60 tablet 0 Sig: Take 1 tablet by mouth before meals and at bedtime. Charly Pyle LPN May 28, 2024 11:38 AM [facility]09-16-2024 Miscellaneous Notes* Telephone Encounter - Charly Pyle LPN - 05/28/2024 11:36 AM EDT Prescription Refill Information The patient has been identified by name and date of : Yes Caregiver verified no other encounters exist for this prescription request: Yes Caregiver confirmed with patient/requestor that no other refills are due, in the near future, with this provider at this time: Yes The last office visit in the department: 02/08/24 Does the patient have a future office visit with this provider/department: Yes,08/17/24 Requested Prescriptions Pending Prescriptions Disp Refills sucralfate (CARAFATE) 1 gram tablet 60 tablet 0 Sig: Take 1 tablet by mouth before meals and at bedtime. Charly Pyle LPN May 28, 2024 11:38 AM documented in this encounterMercy Health08-22-2024 Telephone encounter Note * Telephone Encounter - Maia Killian APRN.CNP - 05/03/2024 6:15 PM EDT The following approved medication requests have been transmitted electronically. Requested Prescriptions Pending Prescriptions Disp Refills sucralfate (CARAFATE) 1 gram tablet 60 tablet 0 Sig: Take 1 tablet by mouth before meals and at bedtime. Maia Killian APRN.CNP [facility]08-22-2024 Miscellaneous Notes* Telephone Encounter - Maia Killian APRN.CNP - 05/03/2024 6:15 PM EDT The following approved medication requests have been transmitted electronically. Requested Prescriptions Pending Prescriptions Disp Refills sucralfate (CARAFATE) 1 gram tablet 60 tablet 0 Sig: Take 1 tablet by mouth before meals and at bedtime. Maia Killian APRN.CNP * Telephone Encounter - Charly Pyle LPN - 05/02/2024 11:22 AM EDT Prescription Refill Information The patient has been identified by name and date of : Yes Caregiver verified no other encounters exist for this prescription request: Yes Caregiver confirmed with patient/requestor that no other refills are due, in the near future, with this provider at this time: Yes The last office visit in the department: 02/08/24 Does the patient have a future office visit with this provider/department: Yes, 08/14/24 Requested Prescriptions Pending Prescriptions Disp Refills sucralfate (CARAFATE) 1 gram tablet 60 tablet 0 Sig: Take 1 tablet by mouth before meals and at bedtime. Charly Pyle LPN May 02, 2024 11:22 AM documented in this encounterMercy Health08-21-2024 Telephone encounter Note * Telephone Encounter - Charly Pyle LPN - 05/02/2024 11:22 AM EDT Prescription Refill Information The patient has been identified by name and date of : Yes Caregiver verified no other encounters exist for this prescription request: Yes Caregiver confirmed with patient/requestor that no other refills are due, in the near future, with this provider at this time: Yes The last office visit in the department: 02/08/24 Does the patient have a future office visit with this provider/department: Yes, 08/14/24 Requested Prescriptions Pending Prescriptions Disp Refills sucralfate (CARAFATE) 1 gram tablet 60 tablet 0 Sig: Take 1 tablet by mouth before meals and at bedtime. Charly Pyle LPN May 02, 2024 11:22 AM [facility] Telephone encounter Note* Telephone Encounter - Leni Christensen LPN - 04/02/2024 11:56 AM EDT [facility] 02/08/24 Scheduled 08/14/24 [facility] Miscellaneous Notes* Telephone Encounter - Leni Christensen LPN - 04/02/2024 11:56 AM EDT [facility] 02/08/24 Scheduled 08/14/24 documented in this encounterMercy Health07-11-2024 Telephone encounter Note * Telephone Encounter - Shawanda Dimas MA - 03/22/2024 3:16 PM EDT Pended requested test strips & lancets. Shawanda Dimas MA [facility]07-11-2024 Miscellaneous Notes* Telephone Encounter - Shawanda Dimas MA - 03/22/2024 3:16 PM EDT Pended requested test strips & lancets. Shawanda Dimas MA documented in this encounterMercy Health06-25-2024 Telephone encounter Note * Telephone Encounter - Obi Red OCCA - 03/06/2024 8:02 AM EDT Prescription Refill Information The patient has been identified by name and date of : Yes Caregiver verified no other encounters exist for this prescription request: Yes Caregiver confirmed with patient/requestor that no other refills are due, in the near future, with this provider at this time: Yes The last office visit in the department: 02/08/2024 Does the patient have a future office visit with this provider/department: Yes, 08/14/2024 Requested Prescriptions Pending Prescriptions Disp Refills sucralfate (CARAFATE) 1 gram tablet 60 tablet 0 Sig: Take 1 tablet by mouth before meals and at bedtime. FLUoxetine (PROZAC) 40 mg capsule 30 capsule 11 Sig: Take 1 capsule by mouth once daily. FLOR Villarreal March 06, 2024 8:03 AM [facility]-25-[facility]24 Miscellaneous Notes* Telephone Encounter - Obi Red OCCA - 03/06/2024 8:02 AM EDT Prescription Refill Information The patient has been identified by name and date of : Yes Caregiver verified no other encounters exist for this prescription request: Yes Caregiver confirmed with patient/requestor that no other refills are due, in the near future, with this provider at this time: Yes The last office visit in the department: 02/08/2024 Does the patient have a future office visit with this provider/department: Yes, 08/14/2024 Requested Prescriptions Pending Prescriptions Disp Refills sucralfate (CARAFATE) 1 gram tablet 60 tablet 0 Sig: Take 1 tablet by mouth before meals and at bedtime. FLUoxetine (PROZAC) 40 mg capsule 30 capsule 11 Sig: Take 1 capsule by mouth once daily. FLOR Villarreal March 06, 2024 8:03 AM documented in this encounterMercy Health06-17-2024 Telephone encounter Note * Telephone Encounter - Maia Cruz LPN - 02/27/2024 11:25 AM EDT Prescription Refill Information The patient has been identified by name and date of : Yes Caregiver verified no other encounters exist for this prescription request: Yes Caregiver confirmed with patient/requestor that no other refills are due, in the near future, with this provider at this time: Yes The last office visit in the department: 02/08/2024 Does the patient have a future office visit with this provider/department: Yes Requested Prescriptions Pending Prescriptions Disp Refills FLUoxetine (PROZAC) 20 mg capsule 30 capsule 5 Sig: Take 1 capsule by mouth once daily. Take with 40 mg dose for total daily dose of 60 mg. Maia Cruz LPN February 27, 2024 11:25 AM [facility] Miscellaneous Notes* Telephone Encounter - Maia Cruz LPN - 02/27/2024 11:25 AM EDT Prescription Refill Information The patient has been identified by name and date of : Yes Caregiver verified no other encounters exist for this prescription request: Yes Caregiver confirmed with patient/requestor that no other refills are due, in the near future, with this provider at this time: Yes The last office visit in the department: 02/08/2024 Does the patient have a future office visit with this provider/department: Yes Requested Prescriptions Pending Prescriptions Disp Refills FLUoxetine (PROZAC) 20 mg capsule 30 capsule 5 Sig: Take 1 capsule by mouth once daily. Take with 40 mg dose for total daily dose of 60 mg. Maia Cruz LPN February 27, 2024 11:25 AM documented in this encounterMercy Health05-29-2024 History of Present illness Narrative* Amber Holloway ST - 02/08/2024 3:27 PM EDT DATE OF PHOTOS: 02/08/2024 Body Part: Breasts ST COURTNEY February 08, 2024 3:27 PM documented in this encounterMercy Health05-29-2024 History of Present illness Narrative* Linda Dugan MD - 02/08/2024 2:15 PM EDT BREAST RECONSTRUCTION EVALUATION CC: Consult for Breast Reconstruction HPI: Silvia Dixon is a 48 year old female that presents today for breast reconstruction evaluation, she would like opinion regarding a right breast reduction to match her left breast, is happy with the size of her left breast. Hx of left breast cancer. Side of Diagnosis: hx of left breast cancer pathology results: Left breast, 4 cm Metaplastic carcinoma with heterologous elements including chondroid matrix production Nuclear Grade 3 ER+ (weak), NH- and HER2 ABSENT. Side of Reconstruction: Bilateral Prior Breast Surgery: 11/22/2012 Left needle localization excisional biopsy of left breast fibroadenoma (Dr. Foy) 04/12/2013 Left needle localization, partial mastectomy, sentinel node biopsy with bilateral breast reduction.(Dr. Li) Left partial mastectomy, left oncoplastic breast reduction, and right breast reduction (Dr. Alvarado) Prior Abdominal Surgery: tubal ligation Hx Radiation Therapy: Yes, completed 06/06/13 to 07/19/13 Hx Chemotherapy: Yes completed 03/23/2023 Bra Size: unsure, wears sports bra Desired Bra Size: right to match her left breast Hemoglobin A1C (%) Date Value 08/01/2023 5.4 08/22/2019 5.7 Hemoglobin A1C (POCT) (%) Date Value 08/11/2022 5.6 Type 2 diabetic - metformin and trulicity, hgbA1C redrawn today HTN - controlled with losartan OB HISTORY: Para: 2 : Patient did not breastfeed BP 115/78 (BP Site: Right Arm, BP Position: Sitting, BP Cuff Size: Large Adult) Pulse 87 Wt 121.1 kg (267 lb) LMP 12/01/2022 (Approximate) BMI 43.69 kg/m HISTORY OF BREAST DISEASE: Postive patient history of breast disease: see HPI FAMILY HISTORY OF BREAST CANCER: MGM at age 80- MAMMOGRAM: Yes, date: 01/20/2024, results: IMPRESSION: BENIGN FINDING There is no mammographic evidence of malignancy. A 1 year screening mammogram is recommended. REVIEW OF SYSTEMS All negative except for: GENERAL: []weight loss []malaise []fevers HEENT: []frequent or significant headaches []changes in hearing []change in vision []nose bleeds []other nasal problems NECK: []lumps []goiter []pain and significant neck swelling RESPIRATORY: []cough []hemoptysis []wheezing []COPD []dyspnea []shortness of breath CARDIOVASCULAR: []chest pain []leg swelling []hypertension []CHF []palpitations GI: []nausea []vomiting []diarrhea MUSCULOSKELETAL: [] joint pain or swelling [] back pain []muscle pain SKIN: [] skin lesions []rash []itching PSYCH: []sleep disturbance []mood disorder []recent psychosocial stressors HEMATOLOGY/LYMPHOLOGY: []prolonged bleeding []bruising easily []swollen nodes ENDOCRINE: []cold intolerance []heat intolerance []polyuria []polydipsia []goiter [] Diabetes HISTORY OF BLEEDING/CLOTTING/recurrent miscarriages (>3): PE right lung 2013 lovenox for a few weeks, oral ac for 1 year. 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 She is on Femara and Zoladex. Depression Diabetes (HCC) GERD (gastroesophageal reflux disease) hiatal hernia, egd Hiatal hernia 20 mg of Prilosec HTN (hypertension) PE (pulmonary embolism) Triggered by treatment for uterine bleeding. Xaralto for one year. MEDS: Current Outpatient Medications Medication Sig Dispense Refill sucralfate (CARAFATE) 1 gram tablet Take 1 tablet by mouth before meals and at bedtime. 60 tablet 0 metFORMIN ER (GLUCOPHAGE XR) 500 mg 24 hr tablet Take 2 tablets by mouth daily with breakfast. 60 tablet 5 tiZANidine (ZANAFLEX) 4 mg tablet Take 1 tablet by mouth every 8 hours as needed (muscle spasms). 30 tablet 1 Blood Pressure Monitor (BLOOD PRESSURE KIT) 1 Each as needed. 1 Each 0 buPROPion SR (WELLBUTRIN SR) 150 mg 12 hr tablet Take 1 tablet by mouth once daily. 30 tablet 1 blood sugar diagnostic (BLOOD GLUCOSE TEST) test strip Test blood sugar(s) 1 times daily. Dx: Type 2 DM - Uncontrolled E11.65 Insulin: No 50 Strip 11 Lancets lancets Test blood sugar(s) 1 times daily. Dx: Type 2 DM - Uncontrolled E11.65 Insulin: No 100 Each 11 losartan (COZAAR) 100 mg tablet Take 1 tablet by mouth once daily. 30 tablet 5 omeprazole (PRILOSEC) 20 mg capsule Take 1 capsule by mouth two times a day. 60 capsule 11 hydroCHLOROthiazide 25 mg tablet Take 1 tablet by mouth once daily. 30 tablet 11 FLUoxetine (PROZAC) 20 mg capsule Take 1 capsule by mouth once daily. Take with 40 mg dose for total daily dose of 60 mg. 30 capsule 5 calcium-cholecalciferol, D3, (OSCAL+D 250) 250 mg-3.125 mcg (125 unit) per tablet Take 1 tablet by mouth two times a day. 60 tablet 11 ibuprofen (ADVIL) 200 mg tablet Take 200 mg by mouth every 6 hours as needed. dulaglutide (TRULICITY) 0.75 mg/0.5 mL pen injector Inject 0.75 mg subcutaneously one time a week. Inject dose once per week. Discard Pen After 4 Each 5 FLUoxetine (PROZAC) 40 mg capsule Take 1 capsule by mouth once daily. 30 capsule 11 acetaminophen (TYLENOL) 500 mg tablet Take 1,000 mg by mouth every 8 hours as needed. elderberry fruit (ELDERBERRY ORAL) Take 1,000 mg by mouth once daily. Blood Pressure Cuff - Home Use BLOOD PRESSURE CUFF FOR HOME USE. DX: LABILE BLOOD PRESSURE 1 Each 0 ascorbic acid (VITAMIN C) 500 mg tablet Take 500 mg by mouth once daily. multivitamin tablet Take 1 tablet by mouth once daily. 0 No current facility-administered medications for this visit. Tobacco Use: No USE OF VITAMIN E, HERBS, ASA, NSAIDS: as needed EMPLOYMENT: Patient is not currently employed BP 115/78 (BP Site: Right Arm, BP Position: Sitting, BP Cuff Size: Large Adult) Pulse 87 Wt 121.1 kg (267 lb) LMP 12/01/2022 (Approximate) BMI 43.69 kg/m EXAM: A&O x3, NAD Breast Exam: Asymmetry: R>L Masses: left breast fat necrosis superior to nipple 6 cm x 6 cm Axillary Lymphadenopathy: no Scars: matute pattern Ptosis: R: Grade III L: Grade III Note: measurements are in centimeters SN to NIPPLE: L 25.5 R: 32 IMF to NIPPLE: L: 12 R: 14.5 WIDTH: L: 13 R: 29 Assessment/Plan This is a 48 year old woman with a history of left breast cancer s/p partial mastectomy with oncoplastic reduction and right breast reduction for symmetry. Hx radiation to left breast and chemotherapy. The patient is a candidate for bilateral breast reduction for symmetry following partial lumpectomywith reconstruction and radiation therapy to her left breast. Consult to hematology due to hx of PE to see recommendations for post op anticoagulation if needed,if these would be needed surgery needs to be at main campus An extensive discussion was undertaken with the patient detailing the risks, benefits and alternatives to breast reduction. We discussed that breast reconstruction is a process and not usually a single stage procedure. The effects of radiation on breast reconstruction, should that become a necessary part of her treatment, were discussed. The patient verbalized understanding of these risks. All questions were fully answered. Silvia Dixon was given supplemental information on breast reconstruction. I have advised her tocontact me at any time and/or return to see me with further questions she may have regarding breastreconstruction. Photographs have been taken and will be sent to the insurance company as necessary. Encouraged patient to communicate via My Chart message with non-urgent questions or concerns. Follow up prior to surgery once scheduled and after hematology clearence Consultation requested by Kaitlin Manuel APRN., CNP for an opinion regarding breast reconstruction.My final recommendations will be communicated back to the requesting physician by way of shared Medical record or letter to requesting physician via US mail. This visit lasted for more than 45 minutes and greater than 50% of the visit was involved in the discussion of the options for treatment. The patient is seen and examined by Dr. Dugan and the following reflects her service. Scribed by Bonny Syed RN I agree with the Chief Complaint, ROS, and Past Histories independently gathered by the clinical merchandise support associate and the remaining scribed note accurately describes my personal service to the patient. Today - She had left breast cancer with oncoplastic reduction and right breast reduction for symmetry by [facility] with inferior pedicle in 2012. She had radiation at that time. She since has left breast much smaller than the left and with some fat necrosis on the left superiorly. I discussed revision withinferior pedicle and removal of the fat necrosis on the left side. I discussed higher risks for wound healing issues in th setting of radiation. However, her skin quality is good so I think should decrease this risk somewhat. She had history of PE so I will want her to see Hematology to devise a perioperative plan. If postoperative anticoagulation is recommended I would want her done at [facility]. Linda Dugan MD documented in this encounterMercy Health05-29-2024 Instructions* Patient Instructions* Dinora Riojas - 02/08/2024 8:41 AM EDT Get lab work Continue current medications Use thin layer of silvadene ointment on sunburns daily. Let us know if you need anything! documented in this encounterMercy Health05-29-2024 History of Present illness Narrative* Savita Griffith APRN.[employer] - 02/08/2024 8:15 AM EDT This is a 48 year old female who presents today with: Patient presents with: Recheck: 1 month follow up HISTORY OF PRESENT ILLNESS: Silvia Dixon is a 48 year old female. Patient presents with: Recheck: 1 month follow up Pt presents with 1 month follow up for new meds started: carafate DM: Reports overall feeling well. Medication side effects: No. Home sugar checks: blood glucose ranges from 80-130's Hypoglycemic spells: Yes. Lowest B, pt states she was feeling "off" at that time Watching diet: Yes. Unexpected weight loss: No. Polyuria, polydipsia: No. Vision Changes: Yes. Pt has an appt with ophthalmology next month. Foot lesions or numbness or pain: No. HTN: Patient is compliant with meds Yes Monitors bp at home: Yes. BP: 118/70's at home Denies side effects: No. Chest pain: No. Dyspnea: No. Edema: No. Palpitations: No. Syncope: No. Headache: Yes, occasional headaches when feeling overheated, suspected perimenopause from [employer]. Dizziness: No. Mood: - feels that the medications are working -currently taking prozac and wellbutrin - has had trouble picking up prescription for wellbutrin, noticing decreased motivation since. GERD: - Since starting carafate, irriation in chest is gone. - only experiencing acid reflux once a week. - pt taking omeprazole and carafate. 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 metFORMIN ER (GLUCOPHAGE XR) 500 mg 24 hr tablet Take 2 tablets by mouth daily with breakfast. tiZANidine (ZANAFLEX) 4 mg tablet Take 1 tablet by mouth every 8 hours as needed (muscle spasms). Blood Pressure Monitor (BLOOD PRESSURE KIT) 1 Each as needed. buPROPion SR (WELLBUTRIN SR) 150 mg 12 hr tablet Take 1 tablet by mouth once daily. blood sugar diagnostic (BLOOD GLUCOSE TEST) test strip Test blood sugar(s) 1 times daily. Dx: Type 2 DM - Uncontrolled E11.65 Insulin: No Lancets lancets Test blood sugar(s) 1 times daily. Dx: Type 2 DM - Uncontrolled E11.65 Insulin: No losartan (COZAAR) 100 mg tablet Take 1 tablet by mouth once daily. omeprazole (PRILOSEC) 20 mg capsule Take 1 capsule by mouth two times a day. hydroCHLOROthiazide 25 mg tablet Take 1 tablet by mouth once daily. FLUoxetine (PROZAC) 20 mg capsule Take 1 capsule by mouth once daily. Take with 40 mg dose for total daily dose of 60 mg. calcium-cholecalciferol, D3, (OSCAL+D 250) 250 mg-3.125 mcg (125 unit) per tablet Take 1 tablet by mouth two times a day. ibuprofen (ADVIL) 200 mg tablet Take 200 mg by mouth every 6 hours as needed. dulaglutide (TRULICITY) 0.75 mg/0.5 mL pen injector Inject 0.75 mg subcutaneously one time a week. Inject dose once per week. Discard Pen After FLUoxetine (PROZAC) 40 mg capsule Take 1 capsule by mouth once daily. acetaminophen (TYLENOL) 500 mg tablet Take 1,000 mg by mouth every 8 hours as needed. elderberry fruit (ELDERBERRY ORAL) Take 1,000 mg [...] (Lung Problems) Paternal Grandmother Heart Paternal Grandfather NE Social History Tobacco Use Smoking status: Never Smokeless tobacco: Never Vaping Use Vaping Use: Never used Substance Use Topics Alcohol use: Yes Comment: Seldom. a couple times a year Drug use: No EXAM: BP 118/82 Pulse 91 Resp 16 LMP 12/01/2022 (Approximate) SpO2 95% PHYSICAL EXAM: General Appearance: Well appearing, alert, in no acute distress, well-hydrated, well nourished.. Skin: Skin color, texture, turgor normal, sunburn with peeling skin bilateral shoulders and upper arms. Head: Normocephalic, no masses, lesions, tenderness or abnormalities. Eyes: Anicteric sclera. Extraocular movements are intact. . Neck: Supple, no adenopathy; thyroid symmetric, normal [...] 250.00, 790.29, ICD10: E11.65 (primary diagnosis) - Controlled - Continue current medications, metformin and trulicity - Suspected vision changes, scheduled to see managing supervisor in 2 weeks - Pt deferred diabetic foot exam at this time - HEMOGLOBIN A1C 2. Anxiety and depression - ICD9: 300.00, 311, ICD10: F41.9, F32.A - Continue current medications - BUPROPION HCL SR 150 MG TABLET,12 HR SUSTAINED-RELEASE 3. Sunburn - ICD9: 692.71, ICD10: L55.9 - Continue at home regimen (ice and Aquaphor prn) - SILVER SULFADIAZINE 1 % TOPICAL CREAM 4. Essential hypertension - ICD9: 401.9, ICD10: I10 - Controlled - Home blood pressure readings controlled - Continue current medications - COMPREHENSIVE METABOLIC PANEL 5. Encounter for immunization - ICD9: V03.89, ICD10: Z23 - PNEUMOCOCCAL VACCINE, 20 VALENT (PREVNAR 20) 6. Hiatal hernia with GERD without esophagitis - ICD9: 553.3, 530.11, ICD10: K44.9, K21.9 - Continue treatment with Prilosec 20 mg BID and Carafate 1 g AC and HS. Discussed treatment plan and patient voices understanding. Patient's questions answered appropriately. Medications and potential side effects were discussed and patient voices understanding. Return to the office as scheduled or as needed for worsening/no improvement. Savita Griffith APRN.CNP The patient indicates understanding of these issues and agrees with the plan. documented in this encounterMer[facility]05-23-2024 Telephone encounter Note * Telephone Encounter - Maia Killian APRN.CNS - 02/02/2024 12:23 PM EDT The following approved medication requests have been transmitted electronically. Requested Prescriptions Pending Prescriptions Disp Refills sucralfate (CARAFATE) 1 gram tablet 60 tablet 0 Sig: Take 1 tablet by mouth before meals and at bedtime. Maia Killian APRN.CNS [facility]05-23-2024 Miscellaneous Notes* Telephone Encounter - Maia Killian APRN.CNS - 02/02/2024 12:23 PM EDT The following approved medication requests have been transmitted electronically. Requested Prescriptions Pending Prescriptions Disp Refills sucralfate (CARAFATE) 1 gram tablet 60 tablet 0 Sig: Take 1 tablet by mouth before meals and at bedtime. Maia Killian APRN.CNS * Telephone Encounter - Eloy Barrow MA - 02/02/2024 11:01 AM EDT Patient has been identified by name and date of : Yes, Provider Suppjustin Date 02/02/24 Time 11:02 am Patient phones for refill(s): Requested Prescriptions Pending Prescriptions Disp Refills sucralfate (CARAFATE) 1 gram tablet 60 tablet 0 Sig: Take 1 tablet by mouth before meals and at bedtime. Date of last office visit in primary care: 10/12/2023 Date of next office visit in primary care: Visit date not found Please advise. Thank you. Eloy Barrow MA. documented in this encounterMercy Health05-23-2024 Telephone encounter Note * Telephone Encounter - Eloy Barrow MA - 02/02/2024 11:01 AM EDT Patient has been identified by name and date of : Yes, Provider Suppjustin Date 02/02/24 Time 11:02 am Patient phones for refill(s): Requested Prescriptions Pending Prescriptions Disp Refills sucralfate (CARAFATE) 1 gram tablet 60 tablet 0 Sig: Take 1 tablet by mouth before meals and at bedtime. Date of last office visit in primary care: 10/12/2023 Date of next office visit in primary care: Visit date not found Please advise. Thank you. Eloy Barrow MA. [facility]-11-[facility]24 Note* Letter - Coordinator, Mammography - 01/21/2024 4:52 PM EDT January 23, 2024 PID: [id number] Silvia Dixon [address] [place] [address] Dear Ms. Dixon, We are pleased to inform you that the results of your recent breast imaging exam on 01/20/2024 are normal. Early detection of cancer is very important. We also understand recommendations regarding breast cancer screening are controversial. Please discuss with your primary care provider which strategy is best for you and whether a mammogram is right for you. Your imaging studies and report will be [facility] file at [facility] as part of your permanent medical record and are available for your continuing care. Thank you for allowing us to help in meeting your health care needs. Sincerely, Dr. Manley Interpreting Radiologist [facility] (Normal over 40) [facility]05-11-2024 Miscellaneous Notes* Letter - [facility] - 01/21/2024 4:52 PM EDT January 23, 2024 PID: [id number] Silvia Dixon [address] [place] [address] Dear Ms. Dixon, We are pleased to inform you that the results of your recent breast imaging exam on 01/20/2024 are normal. Early detection of cancer is very important. We also understand recommendations regarding breast cancer screening are controversial. Please discuss with your primary care provider which strategy is best for you and whether a mammogram is right for you. Your imaging studies and report will be [facility] at [facility] as part of your permanent medical record and are available for your continuing care. Thank you for allowing us to help in meeting your health care needs. Sincerely, Dr. Manley Interpreting Radiologist [facility] (Normal over 40) documented in this encounterMercy Health04-30-2024 Telephone encounter Note * Telephone Encounter - Kaitlin Manuel APRN.CNP - 01/10/2024 12:30 PM EDT Mammogram order in. Please schedule mammogram same day as [facility] [place]. Thank you. Kaitlin Manuel APRN.CNP [facility]04-30-2024 Miscellaneous Notes* Telephone Encounter - Kaitlin Manuel APRN.CNP - 01/10/2024 12:30 PM EDT Mammogram order in. Please schedule mammogram same day as [facility] in [place]. Thank you. Kaitlin Manuel APRN.CNP documented in this encounterMercy Health04-24-2024 Telephone encounter Note * Telephone Encounter - Amita Driver - 01/04/2024 2:41 PM EDT Patient scheduled. Amita Whitaker [facility]-24-[facility]24 Miscellaneous Notes* Telephone Encounter - Amita Driver - 01/04/2024 2:41 PM EDT Patient scheduled. Amita Whitaker * Telephone Encounter - Kaitlin Manuel APRN.CNP - 01/04/2024 2:22 PM EDT Please schedule consult with Dr. Dugan for possible breast recon. surgery. Thank you. Kaitlin Manuel APRN.ALLAN documented in this encounterMercy Health04-24-2024 Telephone encounter Note * Telephone Encounter - Kaitlin Manuel APRN.ALLAN - 01/04/2024 2:22 PM EDT Please schedule consult with Dr. Dugan for possible breast recon. surgery. Thank you. Kaitlin Manuel APRN.ALLAN [facility]04-22-2024 Telephone encounter Note* Telephone Encounter - Aminta Chan LPN - 01/02/2024 4:07 PM EDT Patient MyChart message requesting the following refill Refill(s) Requested: Requested Prescriptions Pending Prescriptions Disp Refills metFORMIN ER (GLUCOPHAGE XR) 500 mg 24 hr tablet 60 tablet 5 Sig: Take 2 tablets by mouth daily with breakfast. ALLERGIES Allergen Reactions Nitrofurantoin Hives, Other: See Comments Lisinopril Cough Phenazopyridine Hives, Other: See Comments Toradol [Ketorolac * Hives (home) [phone] (cell) Last Office Visit Date: 10/12/2023 Last [facility] Visit: Visit date not found Future Appointment: Visit date not found The patients preferred pharmacy has been captured for this encounter? yes Request is for script(s) to be escript to pharmacy. Aminta Chan LPN [facility]04-22-2024 Miscellaneous Notes* Telephone Encounter - Aminta Chan LPN - 01/02/2024 4:07 PM EDT Patient MySupportAssistanthart message requesting the following refill Refill(s) Requested: Requested Prescriptions Pending Prescriptions Disp Refills metFORMIN ER (GLUCOPHAGE XR) 500 mg 24 hr tablet 60 tablet 5 Sig: Take 2 tablets by mouth daily with breakfast. ALLERGIES Allergen Reactions Nitrofurantoin Hives, Other: See Comments Lisinopril Cough Phenazopyridine Hives, Other: See Comments Toradol [Ketorolac * Hives (home) [phone] (cell) Last Office Visit Date: 10/12/2023 Last [facility] Visit: Visit date not found Future Appointment: Visit date not found The patients preferred pharmacy has been captured for this encounter? yes Request is for script(s) to be escript to pharmacy. Aminta Chan LPN documented in this encounterMercy Health04-19-2024 Miscellaneous Notes* Telephone Encounter - Maia Killian APRN.CNS - 12/30/2023 9:47 AM EDT The following approved medication requests have been transmitted electronically. Requested Prescriptions Pending Prescriptions Disp Refills sucralfate (CARAFATE) 1 gram tablet 60 tablet 0 Sig: Take 1 tablet by mouth before meals and at bedtime. Maia Killian APRN.CNS * Telephone Encounter - Aminta Chan LPN - 12/30/2023 8:37 AM EDT Patient MySupportAssistanthart message requesting the following refill Refill(s) Requested: Requested Prescriptions Pending Prescriptions Disp Refills sucralfate (CARAFATE) 1 gram tablet 60 tablet 0 Sig: Take 1 tablet by mouth before meals and at bedtime. ALLERGIES Allergen Reactions Nitrofurantoin Hives, Other: See Comments Lisinopril Cough Phenazopyridine Hives, Other: See Comments Toradol [Ketorolac * Hives (home) [phone] (cell) Last Office Visit Date: 10/12/2023 Last [facility] Visit: Visit date not found Future Appointment: Visit date not found The patients preferred pharmacy has been captured for this encounter? yes Request is for script(s) to be escript to pharmacy. Aminta Chan LPN documented in this encounterMercy Health04-16-2024 History of Present illness Narrative* Kaitlin Manuel APRN.CAST SHELL GRINDER - 12/27/2023 1:27 PM EDT Chief Complaint Patient presents with: Established Patient HPI: Silvia Dixon is a 48 year old female who presents here today for follow up breast cancer. Per Dr. Pool's previous note: H/o appreciated a lump in her left breast in the summer of 2011. She thought perhaps it was something benign based on a biopsy for a different lesion she had done when she was . However, thislump increased in size by July and then she noted further increase after the first of the year.Presented to 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 and was referred here [...] LMP 12/2012. Pt. was on vacation in [facility] and had a large amount of vaginal bleeding-January 16, was seen in ED in [facility]. Has been taking tamoxifen. LMP:December 2012. Was seen by [employer]/Jan. Given Aygestin 5 mg for 12 days on 02/08/14. Bx done. Was admitted to [facility] for PE over the weekend February 16. Told to stop aygestin 02/18/14. Current therapy:femara/zoladex. Started zoladex 05/28/14. LMP:04/14/14. Pt. had previously been on arimidex/aromasin-both stopped d/t joint/bones aches/pains. Completed xarelto therapy fall 2013. Had MRI breast in November 2020- neg. Although did show a ? liver lesion. MRI liver in December 2020-[facility]. No new concerns today. Appetite:"Pretty good." Energy level:"Pretty good." Denies fevers or recent illness. Resp:denies cough or sob Cardiac:denies chest pain/palpitations GI:denies abd pain, n/v, last EGD/Cscope done March 2023-next due in 10 years, moving bowels regularly :denies dysuria/hematuria Extrem:denies pain to back/bones/joints Endo:hot flashes "Slight." Neuro:finger tip tingling-stable Skin:denies rashes/lesions Heme:"My periods. I'm over it." Irreg. [employer] following. The ROS is otherwise negative. Past medical history, appointments, medications, allergies reviewed. No changes. EXAM: BP 133/85 Pulse 96 Temp 36.6 C (97.9 F) (Temporal) Wt 123 kg (271 lb 1.6 oz) LMP 12/01/2022(Approximate) SpO2 95% BMI 44.36 kg/m APPEARANCE Well appearing, alert, in no [...] ICD9: V10.3, ICD10: Z85.3 cT2 N0 MX ER/NH/HER2 pending metaplastic carcinoma of the left breast. - No concerning findings on exam. - Completed AI/zoladex therapy. - Stopped femara 12/09/21. She did not tolerate AI's d/t joint pain. She began tamoxifen 2012. - Imaging/mamm/MRI per breast center. - Follow up with PCP/[employer] as scheduled. - Needs follow up with breast center. - Consult plastics-Dr. Dugan at [facility]-opinion of R reduction to match L. - Follow up in 6 months. - Pt. aware to call office with any questions/concerns. The patient indicates understanding of these issues and agrees with the plan. All documentation from previous visit of 06/27/23-Dr. Pool/myself was copied and pasted, documentation has been reviewed and edited as necessary for today's visit. Kaitlin Manuel APRN.ALLAN documented in this encounterMercy Health03-25-2024 Miscellaneous Notes* Telephone Encounter - Aminta Chan LPN - 12/05/2023 9:32 AM EDT Patient MySupportAssistanthart message requesting the following refill Refill(s) Requested: Requested Prescriptions Pending Prescriptions Disp Refills tiZANidine (ZANAFLEX) 4 mg tablet 30 tablet 1 Sig: Take 1 tablet by mouth every 8 hours as needed (muscle spasms). ALLERGIES Allergen Reactions Nitrofurantoin Hives, Other: See Comments Lisinopril Cough Phenazopyridine Hives, Other: See Comments Toradol [Ketorolac * Hives (home) [phone] (cell) Last Office Visit Date: 10/12/2023 Last [facility] [place] [facility] Visit: Visit date not found Future Appointment: Visit date not found The patients preferred pharmacy has been captured for this encounter? yes Request is for script(s) to be escript to pharmacy. Aminta Chan LPN documented in this encounterMercy Health03-15-2024 Miscellaneous Notes* Telephone Encounter - Charly Pyle LPN - 11/25/2023 1:47 PM EDT Patient has been identified by name and date of : Yes Patient phones for refill(s): Requested Prescriptions Pending Prescriptions Disp Refills buPROPion SR (WELLBUTRIN SR) 150 mg 12 hr tablet 30 tablet 1 Sig: Take 1 tablet by mouth once daily. Date of last office visit in primary care: 10/12/2023 Date of next office visit in primary care: Visit date not found Please advise. Thank you. Charly Pyle LPN. documented in this encounterMercy Health03-04-2024 Miscellaneous Notes* Telephone Encounter - Maia Killian APRN.CNS - 11/14/2023 12:15 PM EST Sucralfate renewed per patient request documented in this encounterMercy Health03-04-2024 Miscellaneous Notes* Telephone Encounter - Maia Cruz LPN - 11/14/2023 11:19 AM EST Patient has been identified by name and date of : Yes, Patient phones for refill(s): Requested Prescriptions Pending Prescriptions Disp Refills Lancets lancets 100 Each 11 Sig: Test blood sugar(s) 1 times daily. Dx: Type 2 DM - Uncontrolled E11.65 Insulin: No Date of last office visit in primary care: 10/12/2023 Date of next office visit in primary care: none Please advise. Thank you. Maia Cruz LPN. documented in this encounterMercy Health03-04-2024 Miscellaneous Notes* Telephone Encounter - Maia Cruz LPN - 11/14/2023 11:18 AM EST Patient has been identified by name and date of : Yes, Patient phones for refill(s): Requested Prescriptions Pending Prescriptions Disp Refills sucralfate (CARAFATE) 1 gram tablet 60 tablet 0 Sig: Take 1 tablet by mouth before meals and at bedtime. Date of last office visit in primary care: 10/12/2023 Date of next office visit in primary care: Visit date not found Please advise. Thank you. Maia Cruz LPN. documented in this encounterMercy Health03-04-2024 Miscellaneous Notes* Telephone Encounter - Shanta Anderson Ma - 11/14/2023 11:12 AM EST Patient has been identified by name and date of : Yes, Provider Randy Zhang MD Date November 14, 2023 Time 11:13 AM Patient phones for refill(s): Requested Prescriptions Pending Prescriptions Disp Refills blood sugar diagnostic (BLOOD GLUCOSE TEST) test strip 50 Strip 11 Sig: Test blood sugar(s) 1 times daily. Dx: Type 2 DM - Uncontrolled E11.65 Insulin: No Date of last office visit in primary care: 10/12/2023 Date of next office visit in primary care: none Please advise. Thank you. Shanta Anderson Ma. documented in this encounterMercy Health11-20-2023 Instructions* Patient Instructions* Savita Griffith APRN.CAST SHELL GRINDER - 08/01/2023 2:14 PM EST Get the labwork. Increase the prozac to 60 mg daily. Consider starting injectable medication for osteoporosis. Vaseline to elbows. Recheck in a month. documented in this encounterMercy Health11-20-2023 History of Present illness Narrative* Savita Griffith APRN.CNP - 08/01/2023 1:54 PM EST This is a 48 year old female who presents today with: Patient presents with: Follow Up HISTORY OF PRESENT ILLNESS: Silvia Dixon is a 48 year old female. Patient [...] sleep and some nights 9 hours. Interests/Hobbies: "I haven't been doing a whole lot." Guilt: no Energy Levels: not good. 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 Savita Griffith APRN.CAST SHELL GRINDER documented in this encounterMercy Health10-20-2023 Miscellaneous Notes* Telephone Encounter - Charly Pyle LPN - 07/01/2023 9:45 AM EDT Patient phones requesting refills as follows: Requested Prescriptions Pending Prescriptions Disp Refills calcium-cholecalciferol, D3, (OSCAL+D 250) 250 mg-3.125 mcg (125 unit) per tablet 60 tablet 11 Sig: Take 1 tablet by mouth two times a day. BEST 01/15/23 NOV 07/27/23 Please review and advise. Charly Pyle LPN documented in this encounterMercy Health10-18-2023 Miscellaneous Notes* Telephone Encounter - Ramona Link LPN - 06/29/2023 11:44 AM EDT This was completed on another refill encounter. documented in this encounterMercy Health10-18-2023 Miscellaneous Notes* Telephone Encounter - Ramona Link LPN - 06/29/2023 11:40 AM EDT Best--01/15/23 Nov--07/27/23 Metformin er --12/13/22 60 with 5 refills Last labs--01/15/23 documented in this encounterMercy Health10-18-2023 Miscellaneous Notes* Telephone Encounter - Ramona Link LPN - 06/29/2023 11:36 AM EDT Best-- 01/15/23 Nov--07/27/23 Last refill--12/06/22 30 with 1 refill Last labs--01/15/23 documented in this encounterMercy Health10-16-2023 History of Present illness Narrative* Kaitlin Manuel, SEAN.CAST SHELL GRINDER - 06/27/2023 1:42 PM EDT Chief Complaint Patient presents with: Established Patient HPI: Silvia Dixon is a 48 year old female who presents here today for follow up breast cancer. Per Dr. Pool's previous note: H/o appreciated a lump in her left breast in the summer. She thought perhaps it was something benign based on a biopsy for a different lesion she had done when she was . However, thislump increased in size by July and then she noted further increase after the first of the year.Presented to 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 and was referred here [...] LMP 12/2012. Pt. was on vacation in [facility] and had a large amount of vaginal bleeding-January 16, was seen in ED in [facility]. Has been taking tamoxifen. LMP:December 2012. Was seen by [facility] [employer]/[facility]. Given Aygestin 5 mg for 12 days on 02/08/14. Bx done. Was admitted to [facility] for PE over the weekend February 16-. Told to stop aygestin 02/18/14. Current therapy:femara/zoladex. Started zoladex 05/28/14. LMP:04/14/14. Pt. had previously been on arimidex/aromasin-both stopped d/t joint/bones aches/pains. Completed xarelto therapy fall 2013. Had MRI breast in November 2020- neg. Although did show a ? liver lesion. MRI liver in December 2020-[facility]. No new concerns today. Appetite:"Good." Energy level:"Pretty good." Denies fevers or recent illness. Resp:denies cough or sob Cardiac:denies chest pain/palpitations GI:denies abd pain, +nausea since starting trulicity-"it's when I take the shot", last EGD/Cscope done March 2023-next due in 10 years, denies vomiting, moving bowels regularly :denies dysuria/hematuria Extrem:denies pain to back/bones/joints Endo:denies hot flashes Neuro:finger tip tingling Skin:denies rashes/lesions Heme:"My periods are random. I never know when I'm gonna have one." [employer] following recent pelvic US-[facility]. The ROS is otherwise negative. Past medical history, appointments, medications, allergies reviewed. No changes. 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 - No concerning findings on exam. - Completed AI/zoladex therapy. - Stopped femara 12/09/21. She did not tolerate AI's d/t joint pain. She began tamoxifen 2012. - Imaging/mamm/MRI per breast center. - Pt. will my chart breast center-overdue for OV and MRI. - Follow up with PCP/[employer] as scheduled. - Follow up in 6 months. - Pt. aware to call office with any questions/concerns. The patient indicates understanding of these issues and agrees with the plan. All documentation from previous visit of 12/27/22-Dr. Pool/myself was copied and pasted, documentation has been reviewed and edited as necessary for today's visit. Kaitlin Manuel APRN.CAST SHELL GRINDER documented in this encounterMercy Health10-13-2023 Miscellaneous Notes* Telephone Encounter - Carlito Jose - 06/24/2023 10:18 AM EDT Patient called in and was informed ok to keep appointment as is. * Telephone Encounter - Hattie Ho - 06/24/2023 9:37 AM EDT Nurse checked with provider and provider said it is ok to leave pt's apt as is * Telephone Encounter - Hattie Ho - 06/24/2023 9:16 AM EDT 3RD Attempt: No answer and unable to LM due to no VM set up Asked nurse if apt should stay scheduled or should be scheduled * Telephone Encounter - Hattie Ho - 06/24/2023 9:13 AM EDT Last read by Silvia Dixon at 3:40 PM on 06/22/2023. Pt read MC message. Has not called to reschedule yet * Telephone Encounter - Shira Ortega - 06/22/2023 10:15 AM EDT 2nd attempt made to contact patient. No answer and there is no voicemail box set up. I did send the patient a MyChart Message Shira Roberson * Telephone Encounter - Kusum Barker - 06/21/2023 3:24 PM EDT Attempted to contact patient to reschedule 06/27 OV to make room for BMBX, but no answer/no voicemail. Kusum Barker documented in this encounterMercy Health09-18-2023 Miscellaneous Notes* Telephone Encounter - Leni Christensen LPN - 05/30/2023 3:58 PM EDT BEST 01/15/23 Scheduled 07/27/23 documented in this encounterMercy Health09-12-2023 NotePap Smear Specimen AdequacySept2022 11:59pmComment.Satisfactory for evaluation. Endocervical and/or squamous metaplasticcells (endocervical component)are present.[facility] INTER[facility]ACED A#[id number] [facility] on above: Satisfactory for evaluation. Endocervical and/or squamous metaplasticcells (endocervical component)are present.05-24-2023 NotePap Smear Specimen Adequacy May 24, 2023 11:59pmComment.Satisfactory for evaluation. Endocervical and/or squamous metaplasticcells (endocervical component)are present.[facility] INTERFACED A#[id number] [facility] CampusCom[facility]aum[facility] on above:Satisfactory for evaluation. Endocervical and/or squamous metaplasticcells (endocervical component)are present.03-09-2023 Miscellaneous Notes* Telephone Encounter - Leni Fermin AMARAL - 03/09/2023 3:45 PM EDT Patient has been identified by name and date of : Yes Requested Prescriptions Pending Prescriptions Disp Refills losartan (COZAAR) 100 mg tablet 30 tablet 5 Sig: Take 1 tablet by mouth once daily. RX INSTRUCTIONS: Patient aware RX will be sent to pharmacy. No need to notify patient. Follow up scheduled in Kristopher Christensen LPN documented in this encounterMercy Health06-28-2023 History of Present illness Narrative* Jacob Cuba APRN.CAST SHELL GRINDER - 03/09/2023 11:20 AM EDT Images from the original note were not included. Subjective Patient came in with complaints of dental pain on the right upper and lower jaw. Patient says she often suffers of tooth infections. Patient is attempting to get a dentist at this time. Patient denies fevers nausea vomiting chills. The history is provided by the patient. No biblical languages professor was used. Dental Problem Review of Systems Constitutional: Negative. Skin: Negative. Objective Physical Exam Constitutional: Appearance: Normal appearance. HENT: Mouth/Throat: Comments: Experiencing pain in the areas marked above significant dental caries noted. Pulmonary: Effort: Pulmonary effort is normal. Neurological: Mental Status: She is alert. 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 Jacob Cuba APRN.ALLAN documented in this encounterMercy Health06-27-2023 Miscellaneous Notes* Telephone Encounter - Maia Cruz LPN - 03/08/2023 10:41 AM EDT Patient has been identified by name and [...] you. Maia Cruz LPN documented in this encounterMercy Health06-09-2023 History of Present illness Narrative* Brandin Garcia PA-C - 02/18/2023 1:10 PM EDT HISTORY AND PHYSICAL Silvia Dixon 1975 REFERRING PHYSICIAN: Randy Zhang MD CHIEF COMPLAINT: Consult (Increased GERD, omeprazole was increased) HPI: The patient is a 47 year old female referred for endoscopy. Silvia notes worsening GERD complaints despite taking PPI for 9 years. Notes diagnosis of hiatal hernia. She is also due for screening colonoscopy. Patient denies any change in bowel habits, weight changes, blood in stools, black tarrystools or abdominal pain. Denies family history of colon issues Denies problems with sedation in the past. 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 Respiratory: The patient [...] the PFSH and ROS obtained by others. Brandin Garcia PA-C PHYSICAL EXAMINATION: General: The patient is 47 year old female, well nourished, well hydrated in no acute distress. Thepatient is oriented to time, place, and person. VITALS: Blood pressure 126/78, pulse 117, temperature 37.1 C (98.8 F), height 167.6 cm (5' 6"), weight 117.9 kg (260 lb), last menstrual period 12/01/2022, SpO2 96 %. Body mass index is 41.97 kg/m . HEENT: Normal cephalic, ataumatic, pupils are equally round, sclera are anicteric, mucous membranesare moist, oropharynx is clear. Neck has no [...] will contact office to schedule if she decidesto pursue this I have explained to the patient the difference between IV conscious sedation and MAC anesthesia - and I have offered either, according to the patient's wishes. I have explained that with IV conscioussedation there is no anesthesia provider available and therefore there is a limitation of the amount of IV medications that can be given and that the patient may wake up in the middle of the procedure and/or experience pain/discomfort during the procedure. Further discussion was done and the patient was given the opportunity to ask questions and all questions were answered. The patient chooses IVconscious sedation Diagnoses: (K44.9, K21.9) Hiatal hernia with GERD without esophagitis (Z12.11) Screening for colon cancer (R22.2) Lump of skin of back Consultation requested by Dr. Zhang for an opinion regarding need for endoscopt. My final recommendations will be communicated back to the requesting physician by way of shared Medical record or letter to requesting physician via US mail. Brandin Garcia PA-C documented in this encounterMercy Health06-09-2023 Nurse Note* Aminta Chan LPN - 02/18/2023 1:05 PM EDT REVIEW OF SYSTEMS: General: The patient denies [...] failure, other cardiac issues, denies claudication, denies coldfeet, denies peripheral arterial stent. Respiratory: The patient [...] none Aminta Chan LPN documented in this encounterMercy Health05-31-2023 Miscellaneous Notes* Telephone Encounter - Renate Perez LPN - 02/09/2023 9:49 AM EDT Patient has been identified by name and date of : Yes, Provider Dr. Zhang Date 02/09/23 Time 10:05 am Patient phones [...] you. Renate Perez LPN documented in this encounterMercy Health04-03-2023 Miscellaneous Notes* Telephone Encounter - Leni Christensen LPN - 12/13/2022 8:57 AM EDT Patient has been identified by name and [...] 02/09/23 Leni Christensen LPN documented in this encounterMercy Health02-28-2023 Miscellaneous Notes* Telephone Encounter - Renate Perez LPN - 11/09/2022 11:49 AM EST Patient has been identified by name and date of : Yes, Provider Dr. Zhang Date 11/09/22 Time 11:50 am Patient phones [...] you. Renate Perez LPN documented in this encounterMercy Health02-15-2023 History of Present illness Narrative* Abby Zelaya Mammo Tech - 10/27/2022 1:20 PM EST Radiology Service Progress Note PATIENT NAME: Silvia Dixon DATE OF SERVICE: October 27, 2022 TIME: 2:54 PM PATIENT IDENTITY VERIFICATION COMPLETED USING TWO (2) IDENTIFIERS: Name and Date of confirmedby patient verbally. FALL SCREENING: Has the patient had 2 falls in the last year or 1 fall with injury or currently using an Ambulatory Assistive Device (Walker, Cane, Wheelchair, Crutches, etc.)? No PATIENT GENDER DATA: Female. status: : No status: NO. PATIENT RELEVANT IMPLANT DATA REVIEWED: Yes RADIOLOGY DEPARTMENT: Mammography PERIPHERAL IV DATA: Not applicable SIGNED BY: Rodri Means October 27, 2022 2:54 PM documented in this encounterMercy Health02-02-2023 Miscellaneous Notes* Telephone Encounter - Christa Tran LPN - 10/14/2022 11:15 AM EST Patient phones requesting refills as follows: Requested Prescriptions Pending Prescriptions Disp Refills dulaglutide (TRULICITY) 0.75 mg/0.5 mL pen injector 4 Each 0 Sig: Inject 0.75 mg subcutaneously one time a week. Inject dose once per week. Discard Pen After BEST-08/11/22 Labs-07/29/22Jul-02/09/23 med filled 09/16/22 Please review and advise. Christa Tran LPN documented in this encounterMercy Health01-30-2023 Miscellaneous Notes* Telephone Encounter - Charly Pyle LPN - 10/11/2022 9:00 AM EST Patient phones requesting refills as follows: Requested Prescriptions Pending Prescriptions Disp Refills metFORMIN ER (GLUCOPHAGE XR) 500 mg 24 hr tablet 60 tablet 1 Sig: Take one tablet once daily X 1 week; then increase to twice daily. BEST 08/11/22 NOV 02/09/23 Please review and advise. Charly Pyle LPN documented in this encounterMercy Health12-28-2022 Miscellaneous Notes* Telephone Encounter - hCarly Pyle LPN - 09/08/2022 9:22 AM EST Patient phones requesting refills as follows: Requested Prescriptions Pending Prescriptions Disp Refills FLUoxetine (PROZAC) 20 mg capsule 30 capsule 1 Sig: Take 1 capsule by mouth once daily. Start after taking 10 mg for a week. BEST 08/11/22 NOV 02/09/23 Please review and advise. Charly Pyle LPN documented in this encounterMercy Health11-30-2022 Instructions* Patient Instructions* Savita Griffith APRN.ALLAN - 08/11/2022 11:54 AM EST Keep up the good work!!!! Continue the same medications. Okay to postpone the appt for 6 months. documented in this encounterMercy Health11-30-2022 History of Present illness Narrative* Savita Griffith APRN.ALLAN - 08/11/2022 10:58 AM EST This is a 47 year old female who presents today with: Patient presents with: Recheck: 3 month follow up- DM HISTORY OF PRESENT ILLNESS: iSlvia Dixon is a 47 year old female. 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 losartan (COZAAR) 100 mg tablet [...] (Lung Problems) Paternal Grandmother Heart Paternal Grandfather NE Social History Tobacco Use Smoking status: Never [...] improvement. Savita Griffith APRN.ALLAN documented in this encounterMercy Health11-15-2022 Miscellaneous Notes* Telephone Encounter - Shanta Anderson Ma - 07/27/2022 11:30 AM EST Last office visit: 06/14/22 F/u scheduled: 08/11/22 Shanta Anderson Ma documented in this [facility]11-15-2022 Miscellaneous Notes* Telephone Encounter - Shanta Anderson Ma - 07/27/2022 11:30 AM EST Last office visit: 06/14/22 F/u scheduled: 08/11/22 Shanta Anderson Ma documented in this encounterMercy Health11-10-2022 Miscellaneous Notes* Telephone Encounter - Bonnie Fontanez Ma - 07/22/2022 9:36 AM EST I called Silvia to assist her with scheduling her annual breast exam and mammogram with [facility]. Silvia mailbox is not set up at this time. I will give her a call later today and see if I can assist her. Bonnie Fontanez Ma documented in this [facility]11-08-2022 Miscellaneous Notes* Telephone Encounter - Leann Koenig - 07/20/2022 1:09 PM EST Patient need mammogram order documented in this encounterMercy Health10-27-2022 Miscellaneous Notes* Telephone Encounter - Rachelle Mosqueda RN - 07/08/2022 10:40 AM EDT Attempted to call pt for DM update. No answer and voicemail not set up. Rachelle Mosqueda RN documented in this encounterMercy Health10-03-2022 History of Present illness Narrative* Randy Zhang MD - 06/14/2022 2:53 PM EDT Patient presents with: 6 Month Exam Diabetes [...] tablet once daily X 1 week; then increaseto twice daily. 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 a couple times a year Drug use: No Reviewed current medications, allergies, past medical history, surgical history, family history andsocial history today. REVIEW OF SYSTEMS All other reviewed and negative other than HPI. HEALTH MAINTENANCE: Reviewed health maintenance issues today and recommended the following in detail. URINE ALBUMIN:CREATININE RATIO Never done DIABETIC FOOT EXAM Never done HIV SCREENING Never done MAMMOGRAM - per breast specialist. PNEUMOCOCCAL(2 - PCV) due on 10/24/2021 PAP TESTING -saw coat check attendant recently. COLORECTAL CANCER SCREENING-recommended. INFLUENZA(1) due on 05/13/2022 VITALS: BP 120/98 Pulse 102 Ht 167.6 cm (5' 6") Wt 121.7 kg (268 lb 6.4 oz) [...] HIV 1 2 COMBO(AG/AB),WITH REFLEX TO DIFFERENTIATION Randy Zhang MD documented in this encounterMercy Health09-23-2022 Miscellaneous Notes* Telephone Encounter - Sofya Pearl LPN - 06/04/2022 7:29 AM EDT Last office visit: 05/04/22 Next appointment scheduled: 06/14/22 Last labs: 04/2022 Patient would like script sent to a different pharmacy. See My Chart message. documented in this encounterMercy Health09-21-2022 Miscellaneous Notes* Telephone Encounter - Elmhurstanderson Manuel APRN.CNP - 06/02/2022 8:05 AM EDT Please see my chart message. Thank you. Kaitlin Manuel APRN.ALLAN documented in this encounterMercy Health09-11-2022 Miscellaneous Notes* Telephone Encounter - Shira Roberson - 05/23/2022 7:41 AM EDT Please see the below message from patient. I went ahead and rescheduled her appointment out. Shira Denis Pss documented in this encounterMercy Health09-06-2022 Miscellaneous Notes* Telephone Encounter - Renate Perez LPN - 05/18/2022 11:05 AM EDT Spoke with pt and information listed below given. Pt verbalizes understanding. Transferred to ep technologist. Renate Perez LPN * Telephone Encounter - Emmie Roberson - 05/18/2022 10:38 AM EDT 1st attempt unable to leave message to return call to schedule with nutrition * Telephone Encounter - Charly Pyle LPN - 05/12/2022 10:53 AM EDT Schedulers please assist pt with scheduling appt with Nutrition. Charly Pyle LPN * Telephone Encounter - Savita Griffith APRN.CNP - 05/12/2022 10:23 AM EDT Referral placed. Please help schedule w/ obi. * Telephone Encounter - Rachelle Mosqueda RN - 05/12/2022 10:19 AM EDT Pt here for initial diabetes appointment. Would like to see Obi Casillas theatrical scenic designer. Please place orders and have PSS call pt to schedule appt. Thank you! Rachelle Mosqueda RN documented in this encounterMercy Health08-31-2022 History of Present illness Narrative* Rachelle Mosqueda RN - 05/12/2022 9:47 AM EDT Complete SDOH from [employer]. Does patient have a support person/ people [...] grandparents) What are the patient's concerns about diagnoses:"prison effects" Readiness to learn about diabetes: high/ level of education: Unknown. Depression screening Score: 0 How do you prefer to receive information: MyChart and phone How do you prefer to be contacted by us for follow up education/ information: Miguelt Goals: Increase exercise to 3 days per week (call [facility] to check on status of application). Meet with Obi Log food intake on lolita (My Fitness Pal) Consider getting Dexcom sensor documented in this encounterMercy Health08-03-2022 NoteHNO ID: [id number] Author: Verona Frederick gum puller Service: Radiology Author Type: Farmworker Poultry Type: Progress Notes Filed: 04/14/2022 1:24 PM [...] in the past not MRI dye* SIGNATURE: Eloy Gimenez gum puller PATIENT NAME: Silvia Dixon DATE: April 14, 2022 TIME: 1:18 PMKindred [id number] Miscellaneous Notes* Letter - Mammography Coordinator - 04/14/2022 2:14 PM EDT April 14, 2022 PID: [id number] Silvia Dixon [address] [place] [address] Dear Ms. Dixon, We are pleased to inform you that [...] report [facility] and are available for your continuing care. Thank you for allowing us to help in meeting your health care needs. Sincerely, Dr. Anderson Interpreting Radiologist [facility] (Normal over 40) documented in this encounterMercy Health08-03-2022 History of Present illness Narrative* EVERETT Godinez - 04/14/2022 12:40 PM EDT Radiology Service Progress Note DATE OF SERVICE: [...] in the past not MRI dye* SIGNATURE: EVERETT Devi PATIENT NAME: Silvia Dixon DATE: April 14, 2022 TIME: 1:18 PM documented in this encounterMercy Health06-30-2022 Miscellaneous Notes* Telephone Encounter - Laura Howell Ma - 03/11/2022 11:25 AM EDT Patient last visit with PCP 12/10/21 Follow up appointment scheduled 06/14/22 Laura Howell Ma documented in this encounterMercy Health05-09-2022 Miscellaneous Notes* Telephone Encounter - Savita Griffith APRN.CNP - 01/18/2022 12:16 PM EDT This encounter was opened in error. @[email or web address]@ documented in this encounterMercy Health04-11-2022 Miscellaneous Notes* Telephone Encounter - Soha Sofia RN - 12/21/2021 9:58 AM EDT Patient calls and notified of results and providers instructions. Patient verbalizes understanding.Offered to schedule appointment for lab work. Patient declined said she would just walk-in after the 2 weeks when available. Shoa Sofia RN * Telephone Encounter - Leni Christensen LPN - 12/21/2021 9:15 AM EDT Voicemail not set up. Gruvie message sent to patient. * Telephone Encounter - Christa Trna LPN - 12/16/2021 5:23 PM EDT TC to Pt. Unable to LM due to the mailbox is not set up. Will try again later. Christa Tran LPN * Telephone Encounter - Randy Zhang MD - 12/16/2021 5:14 PM EDT Sugar up at 121. Liver is climbing up again. Has had some issues on and off and had imaging of her liver in the past. To be on safe side, recheck liver, a1c and lipid in two to three weeks. No etoh or excess tylenol. documented in this encounterMercy Health03-31-2022 Instructions* Patient Instructions* Benjamín Yocasta - 12/10/2021 9:28 AM EDT Recommend icing x 10 minutes twice daily. Cold water bath tub works nice for this Use heel lift in both feet Rest as much as possible. Consider physical therapy. documented in this encounterMercy Health03-31-2022 History of Present illness Narrative* Benjamín Rust - 12/10/2021 9:23 AM EDT Images from the original note were not [...] the pain is 5/10 and is most in tense to the back of her right heel. 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, s/p excisional biopsy, neoadjuvant chemotherapy, partial mastectomy and oncoplasticbreast reduction, and sentinel node biopsy, s/p radiation [...] (Lung Problems) Paternal Grandmother Heart Paternal Grandfather NE Social History Tobacco Use Smoking status: Never [...] Benjamín Rust DPM Podiatry [address] [facility] [address] Dept: [phone] Dept * Deepti Bray MA - 12/10/2021 8:57 AM EDT AMB ROOMING INTAKE FLOWSHEET DATA Pain Pain Level: 5 Pain Location: Foot-Right Description: Sharp, Other: See comment (squeezing) Duration Amount of Time: 6 Duration Units: Weeks Frequency: Continuous Intervention/Comfort measure: Medication, Relaxation (has iced) Patient presents with: Right Foot - New, Pain documented in this encounterMercy Health03-30-2022 Miscellaneous Notes* Telephone Encounter - Charly Pyle LPN - 12/09/2021 1:43 PM EDT Phoned pt, appt scheduled. Charly Pyle LPN * Telephone Encounter - Randy Zhang MD - 12/09/2021 12:52 PM EDT Please ask her to make an appt to discuss osteoporosis with one of us * Telephone Encounter - Jacque Red LPN - 12/09/2021 12:45 PM EDT Patient is aware of all information. I told patient I would forward this note to Dr. Zhang re: bone density but I also asked that she call to discuss. PSR's- please contact patient to schedule for 6 month OV. Jacque Red LPN * Telephone Encounter - Kaitlin Manuel APRN.CNP - 12/09/2021 12:09 PM EDT Please inform pt. that I discussed the [...] OV in 6 months scheduled. Thank you. Kaitlin Manuel APRN.ALLAN documented in this encounterMercy Health03-25-2022 Nurse Note* Janice Renteria LPN - 12/04/2021 11:11 AM EDT Zoladex injection administered, Left lower quad, tolerated well, no immediate adverse reactions noted. See office notes Janice Renteria LPN documented in this encounterMercy Health03-22-2022 History of Present illness Narrative* RT Ale(R) - 12/01/2021 12:40 PM EDT Radiology Service Progress Note PATIENT NAME: Silvia Dixon DATE OF SERVICE: December 01, 2021 TIME: 12:37 PM PATIENT IDENTITY VERIFICATION COMPLETED USING TWO (2) IDENTIFIERS: Name and Date of confirmedby patient verbally. FALL SCREENING: Has the patient had 2 falls in the last year or 1 fall with injury or currently using an Ambulatory Assistive Device (Walker, Cane, Wheelchair, Crutches, etc.)? No PATIENT GENDER DATA: Female. status: : No status: NO. PATIENT RELEVANT IMPLANT DATA REVIEWED: Yes RADIOLOGY DEPARTMENT: General X-ray: Exam(s) Completed: Lower Extremity X- Ray(s): Ankle, Right and Wt. Bearing PERIPHERAL IV DATA: Not applicable SIGNED BY: RT Ale(R) December 01, 2021 12:37 PM documented in this encounterMercy Health11-02-2021 NoteIMPRESSION: INCOMPLETE: NEEDS ADDITIONAL IMAGING EVALUATION The stable coarse dystrophic calcification in the left breast is consistent with fat necrosis and is benign. There are no abnormalities seen in the left breast to correspond with the pain at 6 and 11 o'clock, however, ultrasound is recommended. LIMITED ULTRASOUND OF LEFT BREAST: 07/14/2021 RESULT: Comparison is made to exams dated: 01/11/2018 mamm[address] - [facility], 08/11/2018 mammogram, 07/31/2019 mammogram, 06/06/2020 mammogram - [facility], and 12/10/2020 breast MRI - [facility]. Real-time ultrasound of the left breast 6 o'clock and 11 o'clock regions was performed. Mathew scale images of the real-time examination were reviewed. There are no solid or cystic masses identified in the area marked as focal pain by the patient at the 6:00 position 7cm from the nipple and the 11:00 6cm from the nipple of the left breast. IMPRESSION: BENIGN FINDING There is no sonographic evidence of malignancy. Return to annual mammogram screening schedule is recommended. Emeli mullen/marcel:07/14/2021 15:59:00 Multiple national specialty organizations have released breast cancer screening guidelines for women at average risk for developing breast cancer - guidelines that are based on both evidence and opinion, yet differ on when to start and how often to screen for breast cancer. With representation from Breast Imaging, Internal Medicine, Women's Health, Family Medicine, and Medical/Surgical Oncology, the [facility] has carefully reviewed the data and reached the following consensus: 1) All women should engage in shared decision-making with their providers to decide when to start and how often to screen; 2) All women should have the opportunity to start screening mammography at age 40; 3) For women ages 45-55, we recommend annual screening mammograms; 4) For women ages 55 and over, we support both the transition from an annual to a biennial interval if this aligns more with patient's values and preferences, or continuation with annual screening; 5) All women should discuss with their providers when to stop screening mammograms. Roller Printer(s): Dominga Hill, RT(R)(M), [facility]; RT Gabriel(R)(M), [facility] OVERALL STUDY BIRADS: 2 Benign finding Game Master: Marcel Transcribe Date/Time: Jul 14 2021 3:23P Dictated by: EMELI RIVAS MD This examination was interpreted and the report reviewed and electronically signed by: EMELI RIVAS MD on Jul 14 2021 3:59PM [facility] DIV[facility] OF [id number] NoteIMPRESSION: INCOMPLETE: NEEDS ADDITIONAL IMAGING EVALUATION The stable coarse dystrophic calcification in the left breast is consistent with fat necrosis and is benign. There are no abnormalities seen in the left breast to correspond with the pain at 6 and 11 o'clock, however, ultrasound is recommended. LIMITED ULTRASOUND OF LEFT BREAST: 07/14/2021 RESULT: Comparison is made to exams dated: 01/11/2018 mammogram - [facility], 08/11/2018 mammogram, 07/31/2019 mammogram, 06/06/2020 mammogram - [facility], and 12/10/2020 breast MRI - [facility]. Real-time ultrasound of the left breast 6 o'clock and 11 o'clock regions was performed. Mathew scale images of the real-time examination were reviewed. There are no solid or cystic masses identified in the area marked as focal pain by the patient at the 6:00 position 7cm from the nipple and the 11:00 6cm from the nipple of the left breast. IMPRESSION: BENIGN FINDING There is no sonographic evidence of malignancy. Return to annual mammogram screening schedule is recommended. Emeli mullen/marcel:07/14/2021 15:59:00 Multiple national specialty organizations have released breast cancer screening guidelines for women at average risk for developing breast cancer - guidelines that are based on both evidence and opinion, yet differ on when to start and how often to screen for breast cancer. With representation from Breast Imaging, Internal Medicine, Women's Health, Family Medicine, and Medical/Surgical Oncology, the [facility] has carefully reviewed the data and reached the following consensus: 1) All women should engage in shared decision-making with their providers to decide when to start and how often to screen; 2) All women should have the opportunity to start screening mammography at age 40; 3) For women ages 45-55, we recommend annual screening mammograms; 4) For women ages 55 and over, we support both the transition from an annual to a biennial interval if this aligns more with patient's values and preferences, or continuation with annual screening; 5) All women should discuss with their providers when to stop screening mammograms. Roller Printer(s): Dominga Hill, RT(R)(M), [facility]; Naye Moya RT(R)(M), [facility] OVERALL STUDY BIRADS: 2 Benign finding Game Master: Marcel Transcribe Date/Time: Jul 14 2021 3:23P Dictated by: EMELI RIVAS MD This examination was interpreted and the report reviewed and electronically signed by: EMELI RIVSA MD on Jul 14 2021 3:59PM [facility] DIV[facility] OF [id number] History of Past illness Narrative* Problem Noted Date Resolved Date Personal history of malignant neoplasm of breast 12/19/2017 10/24/2020 Dizziness and giddiness 12/19/2017 10/24/19 21 Chest pain 12/19/2017 04/02/2019 Other pulmonary embolism and infarction 02/21/20 14 10/24/2020 Lump or mass in breast 11/10/2012 9 documented as of this encounter (statuses as of 12/02/2021) [facility] History of Past illness Narrative* Problem Noted Date Resolved Date Personal history of malignant neoplasm of breast 12/19/2017 10/24/2020 Dizziness and giddiness 12/19/2017 10/24/19 21 Chest pain 12/19/2017 04/02/2019 Other pulmonary embolism and infarction 02/21/20 14 10/24/2020 Lump or mass in breast 11/10/2012 9 documented as of this encounter (statuses as of 12/04/2021) [facility] History of Past illness Narrative* Problem Noted Date Resolved Date Personal history of malignant neoplasm of breast 12/19/2017 10/24/2020 Dizziness and giddiness 12/19/2017 10/24/19 21 Chest pain 12/19/2017 04/02/2019 Other pulmonary embolism and infarction 02/21/20 14 10/24/2020 Lump or mass in breast 11/10/2012 9 documented as of this encounter (statuses as of 12/09/2021) [facility] History of Past illness Narrative* Problem Noted Date Resolved Date Personal history of malignant neoplasm of breast 12/19/2017 10/24/2020 Dizziness and giddiness 12/19/2017 10/24/19 21 Chest pain 12/19/2017 04/02/2019 Other pulmonary embolism and infarction 02/21/20 14 10/24/2020 Lump or mass in breast 11/10/2012 9 documented as of this encounter (statuses as of 12/10/2021) [facility] History of Past illness Narrative* Problem Noted Date Resolved Date Personal history of malignant neoplasm of breast 12/19/2017 10/24/2020 Dizziness and giddiness 12/19/2017 10/24/19 21 Chest pain 12/19/2017 04/02/2019 Other pulmonary embolism and infarction 02/21/20 14 10/24/2020 Lump or mass in breast 11/10/2012 9 documented as of this encounter (statuses as of 12/21/2021) [facility] History of Past illness Narrative* Problem Noted Date Resolved Date Personal history of malignant neoplasm of breast 12/19/2017 10/24/2020 Dizziness and giddiness 12/19/2017 10/24/19 21 Chest pain 12/19/2017 04/02/2019 Other pulmonary embolism and infarction 02/21/20 14 10/24/2020 Lump or mass in breast 11/10/2012 9 documented as of this encounter (statuses as of 01/18/2022) [facility] History of Past illness Narrative* Problem Noted Date Resolved Date Personal history of malignant neoplasm of breast 12/19/2017 10/24/2020 Dizziness and giddiness 12/19/2017 10/24/19 21 Chest pain 12/19/2017 04/02/2019 Other pulmonary embolism and infarction 02/21/20 14 10/24/2020 Lump or mass in breast 11/10/2012 9 documented as of this encounter (statuses as of 02/01/2022) [facility] History of Past illness Narrative* Problem Noted Date Resolved Date Personal history of malignant neoplasm of breast 12/19/2017 10/24/2020 Dizziness and giddiness 12/19/2017 10/24/19 21 Chest pain 12/19/2017 04/02/2019 Other pulmonary embolism and infarction 02/21/20 14 10/24/2020 Lump or mass in breast 11/10/2012 9 documented as of this encounter (statuses as of 03/11/2022) [facility] History of Past illness Narrative* Problem Noted Date Resolved Date Personal history of malignant neoplasm of breast 12/19/2017 10/24/2020 Dizziness and giddiness 12/19/2017 10/24/19 21 Chest pain 12/19/2017 04/02/2019 Other pulmonary embolism and infarction 02/21/20 14 10/24/2020 Lump or mass in breast 11/10/2012 9 documented as of this encounter (statuses as of 03/29/2022) [facility] History of Past illness Narrative* Problem Noted Date Resolved Date Personal history of malignant neoplasm of breast 12/19/2017 10/24/2020 Dizziness and giddiness 12/19/2017 10/24/19 21 Chest pain 12/19/2017 04/02/2019 Other pulmonary embolism and infarction 02/21/20 14 10/24/2020 Lump or mass in breast 11/10/2012 9 documented as of this encounter (statuses as of 04/15/2022) [facility] History of Past illness Narrative* Problem Noted Date Resolved Date Personal history of malignant neoplasm of breast 12/19/2017 10/24/2020 Dizziness and giddiness 12/19/2017 10/24/19 21 Chest pain 12/19/2017 04/02/2019 Other pulmonary embolism and infarction 02/21/20 14 10/24/2020 Lump or mass in breast 11/10/2012 9 documented as of this encounter (statuses as of 04/16/2022) [facility] History of Past illness Narrative* Problem Noted Date Resolved Date Personal history of malignant neoplasm of breast 12/19/2017 10/24/2020 Dizziness and giddiness 12/19/2017 10/24/19 21 Chest pain 12/19/2017 04/02/2019 Other pulmonary embolism and infarction 02/21/20 14 10/24/2020 Lump or mass in breast 11/10/2012 9 documented as of this encounter (statuses as of 05/12/2022) [facility] History of Past illness Narrative* Problem Noted Date Resolved Date Personal history of malignant neoplasm of breast 12/19/2017 10/24/2020 Dizziness and giddiness 12/19/2017 10/24/19 21 Chest pain 12/19/2017 04/02/2019 Other pulmonary embolism and infarction 02/21/20 14 10/24/2020 Lump or mass in breast 11/10/2012 9 documented as of this encounter (statuses as of 05/18/2022) [facility] History of Past illness Narrative* Problem Noted Date Resolved Date Personal history of malignant neoplasm of breast 12/19/2017 10/24/2020 Dizziness and giddiness 12/19/2017 10/24/19 21 Chest pain 12/19/2017 04/02/2019 Other pulmonary embolism and infarction 02/21/20 14 10/24/2020 Lump or mass in breast 11/10/2012 9 documented as of this encounter (statuses as of 05/24/2022) [facility] History of Past illness Narrative* Problem Noted Date Resolved Date Personal history of malignant neoplasm of breast 12/19/2017 10/24/2020 Dizziness and giddiness 12/19/2017 10/24/19 21 Chest pain 12/19/2017 04/02/2019 Other pulmonary embolism and infarction 02/21/20 14 10/24/2020 Lump or mass in breast 11/10/2012 9 documented as of this encounter (statuses as of 06/02/2022) [facility] History of Past illness Narrative* Problem Noted Date Resolved Date Personal history of malignant neoplasm of breast 12/19/2017 10/24/2020 Dizziness and giddiness 12/19/2017 10/24/19 21 Chest pain 12/19/2017 04/02/2019 Other pulmonary embolism and infarction 02/21/20 14 10/24/2020 Lump or mass in breast 11/10/2012 9 documented as of this encounter (statuses as of 06/04/2022) [facility] History of Past illness Narrative* Problem Noted Date Resolved Date Personal history of malignant neoplasm of breast 12/19/2017 10/24/2020 Dizziness and giddiness 12/19/2017 10/24/19 21 Chest pain 12/19/2017 04/02/2019 Other pulmonary embolism and infarction 02/21/20 14 10/24/2020 Lump or mass in breast 11/10/2012 9 documented as of this encounter (statuses as of 06/15/2022) [facility] History of Past illness Narrative* Problem Noted Date Resolved Date Personal history of malignant neoplasm of breast 12/19/2017 10/24/2020 Dizziness and giddiness 12/19/2017 10/24/19 21 Chest pain 12/19/2017 04/02/2019 Other pulmonary embolism and infarction 02/21/20 14 10/24/2020 Lump or mass in breast 11/10/2012 9 documented as of this encounter (statuses as of 07/08/2022) [facility] History of Past illness Narrative* Problem Noted Date Resolved Date Personal history of malignant neoplasm of breast 12/19/2017 10/24/2020 Dizziness and giddiness 12/19/2017 10/24/19 21 Chest pain 12/19/2017 04/02/2019 Other pulmonary embolism and infarction 02/21/20 14 10/24/2020 Lump or mass in breast 11/10/2012 9 documented as of this encounter (statuses as of 07/21/2022) [facility] History of Past illness Narrative* Problem Noted Date Resolved Date Personal history of malignant neoplasm of breast 12/19/2017 10/24/2020 Dizziness and giddiness 12/19/2017 10/24/19 21 Chest pain 12/19/2017 04/02/2019 Other pulmonary embolism and infarction 02/21/20 14 10/24/2020 Lump or mass in breast 11/10/2012 9 documented as of this encounter (statuses as of 07/28/2022) [facility] History of Past illness Narrative* Problem Noted Date Resolved Date Personal history of malignant neoplasm of breast 12/19/2017 10/24/2020 Dizziness and giddiness 12/19/2017 10/24/19 21 Chest pain 12/19/2017 04/02/2019 Other pulmonary embolism and infarction 02/21/20 14 10/24/2020 Lump or mass in breast 11/10/2012 9 documented as of this encounter (statuses as of 07/28/2022) [facility] History of Past illness Narrative* Problem Noted Date Resolved Date Personal history of malignant neoplasm of breast 12/19/2017 10/24/2020 Dizziness and giddiness 12/19/2017 10/24/19 21 Chest pain 12/19/2017 04/02/2019 Other pulmonary embolism and infarction 02/21/20 14 10/24/2020 Lump or mass in breast 11/10/2012 9 documented as of this encounter (statuses as of 08/11/2022) [facility] History of Past illness Narrative* Problem Noted Date Resolved Date Personal history of malignant neoplasm of breast 12/19/2017 10/24/2020 Dizziness and giddiness 12/19/2017 10/24/19 21 Chest pain 12/19/2017 04/02/2019 Other pulmonary embolism and infarction 02/21/20 14 10/24/2020 Lump or mass in breast 11/10/2012 9 documented as of this encounter (statuses as of 08/17/2022) [facility] History of Past illness Narrative* Problem Noted Date Resolved Date Personal history of malignant neoplasm of breast 12/19/2017 10/24/2020 Dizziness and giddiness 12/19/2017 10/24/19 21 Chest pain 12/19/2017 04/02/2019 Other pulmonary embolism and infarction 02/21/20 14 10/24/2020 Lump or mass in breast 11/10/2012 9 documented as of this encounter (statuses as of 09/14/2022) [facility] History of Past illness Narrative* Problem Noted Date Resolved Date Personal history of malignant neoplasm of breast 12/19/2017 10/24/2020 Dizziness and giddiness 12/19/2017 10/24/19 21 Chest pain 12/19/2017 04/02/2019 Other pulmonary embolism and infarction 02/21/20 14 10/24/2020 Lump or mass in breast 11/10/2012 9 documented as of this encounter (statuses as of 09/15/2022) [facility] History of Past illness Narrative* Problem Noted Date Resolved Date Personal history of malignant neoplasm of breast 12/19/2017 10/24/2020 Dizziness and giddiness 12/19/2017 10/24/19 21 Chest pain 12/19/2017 04/02/2019 Other pulmonary embolism and infarction 02/21/20 14 10/24/2020 Lump or mass in breast 11/10/2012 9 documented as of this encounter (statuses as of 10/11/2022) [facility] History of Past illness Narrative* Problem Noted Date Resolved Date Personal history of malignant neoplasm of breast 12/19/2017 10/24/2020 Dizziness and giddiness 12/19/2017 10/24/19 21 Chest pain 12/19/2017 04/02/2019 Other pulmonary embolism and infarction 02/21/20 14 10/24/2020 Lump or mass in breast 11/10/2012 9 documented as of this encounter (statuses as of 10/14/2022) [facility] History of Past illness Narrative* Problem Noted Date Resolved Date Personal history of malignant neoplasm of breast 12/19/2017 10/24/2020 Dizziness and giddiness 12/19/2017 10/24/19 21 Chest pain 12/19/2017 04/02/2019 Other pulmonary embolism and infarction 02/21/20 14 10/24/2020 Lump or mass in breast 11/10/2012 9 documented as of this encounter (statuses as of 11/09/2022) [facility] History of Past illness Narrative* Problem Noted Date Resolved Date Personal history of malignant neoplasm of breast 12/19/2017 10/24/2020 Dizziness and giddiness 12/19/2017 10/24/19 21 Chest pain 12/19/2017 04/02/2019 Other pulmonary embolism and infarction 02/21/20 14 10/24/2020 Lump or mass in breast 11/10/2012 9 documented as of this encounter (statuses as of 12/13/2022) [facility] History of Past illness Narrative* Problem Noted Date Resolved Date Personal history of malignant neoplasm of breast 12/19/2017 10/24/2020 Dizziness and giddiness 12/19/2017 10/24/19 21 Chest pain 12/19/2017 04/02/2019 Other pulmonary embolism and infarction 02/21/20 14 10/24/2020 Lump or mass in breast 11/10/2012 9 documented as of this encounter (statuses as of 12/13/2022) [facility] History of Past illness Narrative* Problem Noted Date Resolved Date Personal history of malignant neoplasm of breast 12/19/2017 10/24/2020 Dizziness and giddiness 12/19/2017 10/24/19 21 Chest pain 12/19/2017 04/02/2019 Pulmonary embolism 02/21/2014 01/15/2023 Other pulmonary embolism and infarction 02/21/20 14 10/24/2020 Lump or mass in breast 11/10/2012 9 documented as of this encounter (statuses as of 02/01/2023) [facility] History of Past illness Narrative* Problem Noted Date Resolved Date Personal history of malignant neoplasm of breast 12/19/2017 10/24/2020 Dizziness and giddiness 12/19/2017 10/24/19 21 Chest pain 12/19/2017 04/02/2019 Pulmonary embolism 02/21/2014 01/15/2023 Other pulmonary embolism and infarction 02/21/20 14 10/24/2020 Lump or mass in breast 11/10/2012 9 documented as of this encounter (statuses as of 02/09/2023) [facility] History of Past illness Narrative* Problem Noted Date Resolved Date Personal history of malignant neoplasm of breast 12/19/2017 10/24/2020 Dizziness and giddiness 12/19/2017 10/24/19 21 Chest pain 12/19/2017 04/02/2019 Pulmonary embolism 02/21/2014 01/15/2023 Other pulmonary embolism and infarction 02/21/20 14 10/24/2020 Lump or mass in breast 11/10/2012 9 documented as of this encounter (statuses as of 02/28/2023) [facility] History of Past illness Narrative* Problem Noted Date Resolved Date Personal history of malignant neoplasm of breast 12/19/2017 10/24/2020 Dizziness and giddiness 12/19/2017 10/24/19 21 Chest pain 12/19/2017 04/02/2019 Pulmonary embolism 02/21/2014 01/15/2023 Other pulmonary embolism and infarction 02/21/20 14 10/24/2020 Lump or mass in breast 11/10/2012 9 documented as of this encounter (statuses as of 03/08/2023) [facility] History of Past illness Narrative* Problem Noted Date Resolved Date Personal history of malignant neoplasm of breast 12/19/2017 10/24/2020 Dizziness and giddiness 12/19/2017 10/24/19 21 Chest pain 12/19/2017 04/02/2019 Pulmonary embolism 02/21/2014 01/15/2023 Other pulmonary embolism and infarction 02/21/20 14 10/24/2020 Lump or mass in breast 11/10/2012 9 documented as of this encounter (statuses as of 03/09/2023) [facility] History of Past illness Narrative* Problem Noted Date Resolved Date Personal history of malignant neoplasm of breast 12/19/2017 10/24/2020 Dizziness and giddiness 12/19/2017 10/24/19 21 Chest pain 12/19/2017 04/02/2019 Pulmonary embolism 02/21/2014 01/15/2023 Other pulmonary embolism and infarction 02/21/20 14 10/24/2020 Lump or mass in breast 11/10/2012 9 documented as of this encounter (statuses as of 03/10/2023) [facility] History of Past illness Narrative* Problem Noted Date Diagnosed Date Resolved Date Personal history of malignan t neoplasm of breast 12/19/2017 10/24/2020 Dizziness and giddiness 12/19/201710/13 Chest pain 12/19/2017 04/02/2019 Pulmonary embolism 02/21/2014 3 Other pulmonary embolism and infarction 02/20/2014 10/24/2020 Lump or mass in breast 11/10/201204/02 documented as of this encounter (statuses as of 04/13/2023) [facility] History of Past illness Narrative* Problem Noted Date Diagnosed Date Resolved Date Personal history of malignan t neoplasm of breast 12/19/2017 10/24/2020 Dizziness and giddiness 12/19/201710/13 Chest pain 12/19/2017 04/02/2019 Pulmonary embolism 02/21/2014 3 Other pulmonary embolism and infarction 02/20/2014 10/24/2020 Lump or mass in breast 11/10/201204/02 documented as of this encounter (statuses as of 05/31/2023) [facility] History of Past illness Narrative* Problem Noted Date Diagnosed Date Resolved Date Personal history of malignan t neoplasm of breast 12/19/2017 10/24/2020 Dizziness and giddiness 12/19/201710/13 Chest pain 12/19/2017 04/02/2019 Pulmonary embolism 02/21/2014 3 Other pulmonary embolism and infarction 02/20/2014 10/24/2020 Lump or mass in breast 11/10/201204/02 documented as of this encounter (statuses as of 06/24/2023) [facility] History of Past illness Narrative* Problem Noted Date Diagnosed Date Resolved Date Personal history of malignan t neoplasm of breast 12/19/2017 10/24/2020 Dizziness and giddiness 12/19/201710/13 Chest pain 12/19/2017 04/02/2019 Pulmonary embolism 02/21/2014 3 Other pulmonary embolism and infarction 02/20/2014 10/24/2020 Lump or mass in breast 11/10/201204/02 documented as of this encounter (statuses as of 06/27/2023) [facility] History of Past illness Narrative* Problem Noted Date Diagnosed Date Resolved Date Personal history of malignan t neoplasm of breast 12/19/2017 10/24/2020 Dizziness and giddiness 12/19/201710/13 Chest pain 12/19/2017 04/02/2019 Pulmonary embolism 02/21/2014 3 Other pulmonary embolism and infarction 02/20/2014 10/24/2020 Lump or mass in breast 11/10/201204/02 documented as of this encounter (statuses as of 06/29/2023) [facility] History of Past illness Narrative* Problem Noted Date Diagnosed Date Resolved Date Personal history of malignan t neoplasm of breast 12/19/2017 10/24/2020 Dizziness and giddiness 12/19/201710/13 Chest pain 12/19/2017 04/02/2019 Pulmonary embolism 02/21/2014 3 Other pulmonary embolism and infarction 02/20/2014 10/24/2020 Lump or mass in breast 11/10/201204/02 documented as of this encounter (statuses as of 06/29/2023) [facility] History of Past illness Narrative* Problem Noted Date Diagnosed Date Resolved Date Personal history of malignan t neoplasm of breast 12/19/2017 10/24/2020 Dizziness and giddiness 12/19/201710/13 Chest pain 12/19/2017 04/02/2019 Pulmonary embolism 02/21/2014 3 Other pulmonary embolism and infarction 02/20/2014 10/24/2020 Lump or mass in breast 11/10/201204/02 documented as of this encounter (statuses as of 06/29/2023) [facility] History of Past illness Narrative* Problem Noted Date Diagnosed Date Resolved Date Personal history of malignan t neoplasm of breast 12/19/2017 10/24/2020 Dizziness and giddiness 12/19/201710/13 Chest pain 12/19/2017 04/02/2019 Pulmonary embolism 02/21/2014 3 Other pulmonary embolism and infarction 02/20/2014 10/24/2020 Lump or mass in breast 11/10/201204/02 documented as of this encounter (statuses as of 07/01/2023) [facility] History of Past illness Narrative* Problem Noted Date Diagnosed Date Resolved Date Personal history of malignan t neoplasm of breast 12/19/2017 10/24/2020 Dizziness and giddiness 12/19/201710/13 Chest pain 12/19/2017 04/02/2019 Pulmonary embolism 02/21/2014 3 Other pulmonary embolism and infarction 02/20/2014 10/24/2020 Lump or mass in breast 11/10/201204/02 documented as of this encounter (statuses as of 08/02/2023) [facility] History of Past illness Narrative* Problem Noted Date Diagnosed Date Resolved Date Personal history of malignan t neoplasm of breast 12/19/2017 10/24/2020 Dizziness and giddiness 12/19/201710/13 Chest pain 12/19/2017 04/02/2019 Pulmonary embolism 02/21/2014 3 Other pulmonary embolism and infarction 02/20/2014 10/24/2020 Lump or mass in breast 11/10/201204/02 documented as of this encounter (statuses as of 11/14/2023) [facility] History of Past illness Narrative* Problem Noted Date Diagnosed Date Resolved Date Personal history of malignan t neoplasm of breast 12/19/2017 10/24/2020 Dizziness and giddiness 12/19/201710/13 Chest pain 12/19/2017 04/02/2019 Pulmonary embolism 02/21/2014 3 Other pulmonary embolism and infarction 02/20/2014 10/24/2020 Lump or mass in breast 11/10/201204/02 documented as of this encounter (statuses as of 11/14/2023) [facility] [facility]04-09-2018 History of Past illness Narrative* Problem Noted Date Diagnosed Date Resolved Date Personal history of malignan t neoplasm of breast 12/19/2017 10/24/2020 Dizziness and giddiness 12/19/201710/13 Chest pain 12/19/2017 04/02/2019 Pulmonary embolism 02/21/2014 3 Other pulmonary embolism and infarction 02/20/2014 10/24/2020 Lump or mass in breast 11/10/201204/02 documented as of this encounter (statuses as of 11/14/2023) [facility] History of Past illness Narrative* Problem Noted Date Diagnosed Date Resolved Date Personal history of malignan t neoplasm of breast 12/19/2017 10/24/2020 Dizziness and giddiness 12/19/201710/13 Chest pain 12/19/2017 04/02/2019 Pulmonary embolism 02/21/2014 3 Other pulmonary embolism and infarction 02/20/2014 10/24/2020 Lump or mass in breast 11/10/201204/02 documented as of this encounter (statuses as of 11/14/2023) [facility]04-09-2018 History of Past illness Narrative* Problem Noted Date Diagnosed Date Resolved Date Personal history of malignan t neoplasm of breast 12/19/2017 10/24/2020 Dizziness and giddiness 12/19/201710/13 Chest pain 12/19/2017 04/02/2019 Pulmonary embolism 02/21/2014 3 Other pulmonary embolism and infarction 02/20/2014 10/24/2020 Lump or mass in breast 11/10/201204/02 documented as of this encounter (statuses as of 11/23/2023) [facility]04-09-2018 History of Past illness Narrative* Problem Noted Date Diagnosed Date Resolved Date Personal history of malignan t neoplasm of breast 12/19/2017 10/24/2020 Dizziness and giddiness 12/19/201710/13 Chest pain 12/19/2017 04/02/2019 Pulmonary embolism 02/21/2014 3 Other pulmonary embolism and infarction 02/20/2014 10/24/2020 Lump or mass in breast 11/10/201204/02 documented as of this encounter (statuses as of 11/25/2023) [facility]04-09[facility]2018 History of Past illness Narrative* Problem Noted Date Diagnosed Date Resolved Date Personal history of malignan t neoplasm of breast 12/19/2017 10/24/2020 Dizziness and giddiness 12/19/201710/13 Chest pain 12/19/2017 04/02/2019 Pulmonary embolism 02/21/2014 3 Other pulmonary embolism and infarction 02/20/2014 10/24/2020 Lump or mass in breast 11/10/201204/02 documented as of this encounter (statuses as of 12/05/2023) [facility] History of Past illness Narrative* Problem Noted Date Diagnosed Date Resolved Date Personal history of malignan t neoplasm of breast 12/19/2017 10/24/2020 Dizziness and giddiness 12/19/201710/13 Chest pain 12/19/2017 04/02/2019 Pulmonary embolism 02/21/2014 3 Other pulmonary embolism and infarction 02/20/2014 10/24/2020 Lump or mass in breast 11/10/201204/02 documented as of this encounter (statuses as of 12/05/2023) [facility]04-09[facility]2018 History of Past illness Narrative* Problem Noted Date Diagnosed Date Resolved Date Personal history of malignan t neoplasm of breast 12/19/2017 10/24/2020 Dizziness and giddiness 12/19/201710/13 Chest pain 12/19/2017 04/02/2019 Pulmonary embolism 02/21/2014 3 Other pulmonary embolism and infarction 02/20/2014 10/24/2020 Lump or mass in breast 11/10/201204/02 documented as of this encounter (statuses as of 12/21/2023) [facility] History of Past illness Narrative* Problem Noted Date Diagnosed Date Resolved Date Personal history of malignan t neoplasm of breast 12/19/2017 10/24/2020 Dizziness and giddiness 12/19/201710/13 Chest pain 12/19/2017 04/02/2019 Pulmonary embolism 02/21/2014 3 Other pulmonary embolism and infarction 02/20/2014 10/24/2020 Lump or mass in breast 11/10/201204/02 documented as of this encounter (statuses as of 12/30/2023) [facility]-09[facility]2018 History of Past illness Narrative* Problem Noted Date Diagnosed Date Resolved Date Personal history of malignan t neoplasm of breast 12/19/2017 10/24/2020 Dizziness and giddiness 12/19/201710/13 Chest pain 12/19/2017 04/02/2019 Pulmonary embolism 02/21/2014 3 Other pulmonary embolism and infarction 02/20/2014 10/24/2020 Lump or mass in breast 11/10/201204/02 documented as of this encounter (statuses as of 12/30/2023) [facility] Author Nilo Hidalgo [facility] Note Date/Time February 07, 2025 1:02p michael [facility] Medical Records Department [address] [place] [address] Instructions for Home/Discharge Instructions 02/07/25 1301 MR#: [id number] Acct: [id number] Name: SILVIA DIXON Rep #:[id number] : 1975 49 From: Nilo alex DO PCP: Dr. Randy Zhang MD Status:ADM I NO Discharge Instructions Diet Discharge Diet: No restrictions DC O2, CPAP, BIPAP needs Home O2 Discharge instructions: No Dressing / Incision Discharge Activity: No Restrictions Follow Up Care Test Results: Test results from this visit will be discussed in further detail at your follow- up appointment, if applicable. Discharge Plan Admission Admit Date/Time: 02/06/25 20:22 Primary Reason for Your Visit: chest pain Attending Provider: Nilo Hidalgo Primary Care Provider: Randy Zhang Consulting Providers: Cristopher Tavera Discharge Orders/Prescriptions Prescriptions: Continued ascorbate calcium (vitamin C) 500 mg tablet 500 mg PO DAILY sucralfate [Carafate] 1 gram tablet 1 g PO BID omeprazole 20 MG capsule 20 mg PO BID Patient Comments: acid reflux multivitamin with folic acid 1 TABLET tablet 1 tab PO DAILY Trulicity 0.75 mg/0.5 mL pen injector 0.75 mg subcut QWEEK metformin 500 mg tablet extended release 24 hr 1,000 mg PO DAILY venlafaxine 150 mg capsule,extended release 24hr 150 mg PO DAILY bupropion HCl 150 mg tablet sustained-release 12 hr 150 mg PO DAILY hydrochlorothiazide 25 mg tablet 25 mg PO DAILY losartan 100 mg tablet 100 mg PO DAILY calcium carbonate-vitamin D3 250 mg-3.125 mcg (125 unit) tablet 1 tab PO BID Referrals / Follow Up: Randy Zhang MD [Primary Care Provider] - Disposition Disposition (needs filled in before D/C Order can be placed): Home, Self Care 02/07/25 1302<Electronically signed by Nilo Hidalgo DO>Nilo Hidalgo DO CC: Dr. Cristopher Tavera MD; Dr. Randy Zhang MD ~ Signed [facility] Work Phone: Discharge summary Author Nilo [facility] Note Date/Time February 07, 2025 1:31p [facility] Medical Records Department [address] [place] [address] Discharge Summary 02/07/25 1302 MR#: [id number] Acct: [id number] Name: SILVIA DIXON Rep #:[id number] : 1975 49 From: Nilo alex DO PCP: Dr. Randy Zhang MD Status:ADM I NO Location: [place] [address] Providers Date of Admission: 02/06/25 Date of Discharge: 02/07/25 Primary Care Physician: Dr. Randy Zhang MD Reason For Visit: CHEST PRESSURE Diagnosis Discharge Diagnosis (1) Chest pain, exertional: Status: Acute Code(s): R07.9 - Chest pain, unspecified Medications at Discharge Home Medications multivitamin with folic acid 400 mcg tablet 1 tab PO DAILY supplement 02/17/14 omeprazole 20 mg capsule,delayed release 20 mg PO BID GERD 02/17/14 ascorbate calcium (vitamin C) 500 mg tablet 500 mg PO DAILY supplement 05/24/23 sucralfate 1 gram tablet (Carafate) 1 g PO BID stomach 05/28/24 bupropion HCl 150 mg tablet,12 hr sustained-release 150 mg PO DAILY mental health 07/24/24 calcium 250 mg (as carbonate)-vitamin D3 3.125 mcg (125 unit) tablet 1 tab PO BID supplement 07/24/24 hydrochlorothiazide 25 mg tablet 25 mg PO DAILY blood pressure 07/24/24 losartan 100 mg tablet 100 mg PO DAILY blood pressure 07/24/24 venlafaxine 150 mg capsule,extended release 24 hr 150 mg PO DAILY anxiety 07/24/24 dulaglutide 0.75 mg/0.5 mL subcutaneous pen injector (Trulicity) 0.75 mg subcut QWEEK diabetes 02/06/25 metformin 500 mg tablet,extended release 24 hr 1,000 mg PO DAILY diabetes 02/06/25 Hospital Course Operations None Procedures EKG, Stress test and - (Chest x-ray, CTA chest) Summary of Care Provided Minutes Spent on Discharge: 35 Hospital Course: Patient is a 49-year-old female who presented [facility] ED on 02/06/2025 with chest pain. Short hospital course as noted below. Patient discharged home in stable condition on 02/07. 1. Chest pain, ACS ruled out ? Presented with exertional chest pain and mildly elevated blood pressures. History of provoked remote PE, not on anticoagulation. Troponin x 3 negative inED. No EKG changes noted. CTA chest was negative for PE. Stress test on 02/07 was negative. Suspect that anxiety played a role in her chest pain. Chest painresolved by hospital day 2 and blood pressures improved on home blood pressure regimen. Stable for discharge home on 02/07. Chronic medical conditions: ? Class III obesity: BMI 44 on admit. Recommended weight loss on discharge. ? Type 2 diabetes mellitus: Continue home metformin and Trulicity on discharge. ? Anxiety/depression: Continue home bupropion and venlafaxine. ? Hypertension: Continue home losartan and hydrochlorothiazide. ? GERD: Continue home omeprazole and sucralfate. Total clinical time spent by myself addressing the patient's medical issues, reviewing all the data, and collaborating with patient's care team: 35 minutes. Physical Exam Narrative General: Alert, Oriented x3, Cooperative, No apparent distress, morbid obesity HEENT: Atraumatic, PERRLA, EOMI, Normocephalic Oral: Moist Mucosa Neck: Supple, No JVD Lungs: Diminished, Normal air movement, No rhonchi, No wheeze, No rales Cardiovascular: Tachycardic, Regular Rhythm, Normal S1, Normal S2, No murmurs Abdomen: Soft, Non Tender, Non-Distended, No Hepato-splenomegaly Extremities: No edema, Capillary Refill Less than 3 Seconds Skin: No rashes, No breakdown Musculoskeletal: No Tenderness to Palpation of Joints or Extremities Neurological: No focal neurological deficits, Motor Exam 5/5 strength throughout, Sensory exam intact to light touch and pain Psych/Mental Status: Normal Affect, Appropriate Weight / BMI Weight Weight: 125.8 kg Body Mass Index (BMI) 44.7 ABG / Lab / Microbiology Data 02/06/25 15:14 02/06/25 15:14 Laboratory: Laboratory Results - last 24 hr 02/06/25 15:14: WBC 8.3, RBC 4.89, Hgb 14.2, Hct 42.2, MCV 86.3, MCH 29.0, MCHC 33.6, RDW Std Deviation 42.9, RDW Coeff of Casie 13.7, Plt Count 331, MPV 9.7, Immature Gran % (Auto) 0.500, Neut % (Auto) 50.3, Lymph % (Auto) 39.4, Swain % (Auto) 7.3, Eos % (Auto) 1.8, Baso % (Auto) 0.7, Absolute Neuts (auto) 4.2, Absolute Lymphs (auto) 3.25, Nucleated RBC % 0, D-Dimer Quant (PE/DVT) Cancelled, Sodium 138, Potassium 3.5, Chloride 102, Carbon Dioxide 23.0, Anion Gap 14, BUN 9, Creatinine 0.69 L, Estim Creat Clear Calc 137.25, Est GFR (MDRD) Non-Af 108, BUN/Creatinine Ratio 13.0, Glucose 111 H, Calcium 9.7, Troponin T High Sens < 6 02/06/25 16:19: D-Dimer Quant (PE/DVT) < 0.27 L 02/06/25 17:13: Troponin T Hi Sens 2 Hr < 6 02/06/25 19:14: Troponin T Hi Sens 4Hr < 6 02/07/25 05:22: Triglycerides 212 H, Cholesterol 183, LDL Cholesterol, Calc 96, VLDL Cholesterol 42 H, HDL Cholesterol 45, Cholesterol/HDL Ratio 4.07 02/07/25 11:24: POC Glucose 106 Radiography Diagnostic Testing: Radiology Impression Chest X-Ray 02/06/25 14:57 IMPRESSION: No acute cardiopulmonary process. [facility] Chest CTA 02/06/25 18:17 IMPRESSION: LIMITED. NO LARGE CENTRAL PULMONARY EMBOLI. Reading [facility] Instructions Discharge Diet: No restrictions DC O2, CPAP, BIPAP Needs Home O2 Discharge instructions: No Meaningful Use Info Meaningful Use Meaningful Use Diagnoses (Choose all that apply): None applicable Ischemic Stroke Statin Dosing Therapy Reference: STATIN DOSE THERAPY REFERENCE: * Patients > 75 years receive moderate or high dose statin therapy. * Patients 75 years or YOUNGER should receive HIGH intensity statin dose unless contraindicated. You will be required to document reason for non-treatment if statin daily dose does not meet guidelines. HIGH DOSE STATIN THERAPY DAILY Atorvastatin > than or = to 40 mg Rosuvastatin > than or = to 20 mg Amlodipine + Atorvastatin > than or = to 2.5/40 mg Ezetimibe + Simvastatin 10/80 mg Simvastatin 80mg Discharge Plan Admission Admit Date/Time: 02/06/25 20:22 Primary Reason for Your Visit: chest pain Attending Provider: Nilo Hidalgo Primary Care Provider: Randy Zhang Consulting Providers: Cristopher Tavera Discharge Orders/Prescriptions Prescriptions: Continued ascorbate calcium (vitamin C) 500 mg tablet 500 mg PO DAILY sucralfate [Carafate] 1 gram tablet 1 g PO BID omeprazole 20 MG capsule 20 mg PO BID Patient Comments: acid reflux multivitamin with folic acid 1 TABLET tablet 1 tab PO DAILY Trulicity 0.75 mg/0.5 mL pen injector 0.75 mg subcut QWEEK metformin 500 mg tablet extended release 24 hr 1,000 mg PO DAILY venlafaxine 150 mg capsule,extended release 24hr 150 mg PO DAILY bupropion HCl 150 mg tablet sustained-release 12 hr 150 mg PO DAILY hydrochlorothiazide 25 mg tablet 25 mg PO DAILY losartan 100 mg tablet 100 mg PO DAILY calcium carbonate-vitamin D3 250 mg-3.125 mcg (125 unit) tablet 1 tab PO BID Referrals / Follow Up: Randy Zhang MD [Primary Care Provider] - Disposition Disposition (needs filled in before D/C Order can be placed): Home, Self Care Charges/Coding Visit Charges Inpatient E&M: 96649 Disch Hosp >30min 02/07/25 1331 <Electronically signed by Nilo Hidalgo DO> Cosigner Signature (if applicable): CC: Dr. Nilo Hidalgo DO; Dr. Randy Zhang MD~ Signed [facility] Work Phone: Evaluation note* Diagnosis [facility] Diagnosis 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eft female breast, unspecified estrogen receptor status (HCC)- Primary [facility]* Diagnosis Tendonitis, Achilles, right- Primary Achilles bursitis or tendinitis [facility]* Diagnosis Elevated liver enzymes- Primary Other nonspecific abnormal serum enzyme levels Hyperglycemia Other abnormal glucose documented in this encounter [facility] note* Diagnosis OPENED IN ERROR- Primary To allow closing an encounter opened in error (used in SmartSet) [facility] Diagnosis Essential hypertension Unspecified essential hypertension [facility]* Diagnosis Personal history of breast cancer Personal history of malignant neoplasm of breast Fibrocystic breast changes of both breasts documented in this encounter [facility] note* Diagnosis Onset Date Resolution Status UTI (urinary tract infection) acute Vulvar dermatitis acute [facility] Work Phone: Evaluation note* Diagnosis Type 2 diabetes mellitus with hyperglycemia, without long-term current use of insulin (HCC) [facility]* Diagnosis Type 2 diabetes mellitus with hyperglycemia, without long-term current use of insulin (HCC)- Primary [facility]* Diagnosis Anxiety and depression Dysthymic disorder Type 2 diabetes mellitus with hyperglycemia, without long-term current use of insulin (HCC) Essential hypertension Unspecified essential hypertension Osteoporosis, unspecified osteoporosis type, unspecified pathological fracture presence documented in this encounter [facility] note* Diagnosis Type 2 diabetes mellitus with hyperglycemia, without long-term current use of insulin (HCC)- Primary Essential hypertension Unspecified essential hypertension Anxiety and depression Dysthymic disorder Screening for HIV (human immunodeficiency virus) Special screening examination for other specified viral diseases [facility]* Diagnosis Encounter for screening mammogram for breast cancer- Primary [facility]* Diagnosis Type 2 diabetes mellitus with hyperglycemia, without long-term current use of insulin (HCC) Essential hypertension Unspecified essential hypertension [facility]* Diagnosis Acute left-sided low back pain with left-sided sciatica Type 2 diabetes mellitus with hyperglycemia, without long-term current use of insulin (HCC) [facility] Diagnosis Type 2 diabetes mellitus without complication, without long-term current use of insulin (HCC)- Primary [facility]* Diagnosis Anxiety and depression Dysthymic disorder [facility]* Diagnosis Type 2 diabetes mellitus with hyperglycemia, without long-term current use of insulin (HCC) [facility] noteNo assessment [facility] Work Phone: [facility]* Diagnosis Anxiety and depression Dysthymic disorder [facility]* Diagnosis Type 2 diabetes mellitus with hyperglycemia, without long-term current use of insulin (HCC) Anxiety and depression Dysthymic disorder [facility]* Diagnosis Anxiety and depression Dysthymic disorder Type 2 diabetes mellitus with hyperglycemia, without long-term current use of insulin (HCC) [facility] Diagnosis Anxiety and depression Dysthymic disorder [facility]* Diagnosis Type 2 diabetes mellitus with hyperglycemia, without long-term current use of insulin (HCC) [facility]* Diagnosis Hiatal hernia with GERD without esophagitis Screening for colon cancer Special screening for malignant neoplasms, colon Lump of skin of back Localized superficial swelling, mass, or lump [facility]* Diagnosis Pain, dental- Primary Unspecified disorder of the teeth and supporting structures [facility] Diagnosis Essential hypertension Unspecified essential hypertension [facility]* Diagnosis Osteoporosis, unspecified osteoporosis type, unspecified pathological fracture presence Type 2 diabetes mellitus with hyperglycemia, without long-term current use of insulin (HCC) [facility]* Diagnosis Onset Date Resolution Status Abnormal uterine bleeding ac ione Encounter for routine gynecological examination noneactive [facility] Work Phone: Evaluation note* Diagnosis Type 2 diabetes mellitus with hyperglycemia, without long-term current use of insulin (HCC) [facility]* Diagnosis Personal history of breast cancer- Primary Personal history of malignant neoplasm of breast [facility]* Diagnosis Type 2 diabetes mellitus with hyperglycemia, without long-term current use of insulin (HCC) [facility]* Diagnosis Acute left-sided low back pain with left-sided sciatica [facility]* Diagnosis Osteoporosis, unspecified osteoporosis type, unspecified pathological fracture presence Type 2 diabetes mellitus with hyperglycemia, without long-term current use of insulin (HCC) [facility]* Diagnosis Osteoporosis, unspecified osteoporosis type, unspecified pathological fracture presence [facility]* Diagnosis Type 2 diabetes mellitus with hyperglycemia, without long-term current use of insulin (HCC)- Primary Essential hypertension Unspecified essential hypertension Elevated liver enzymes Other nonspecific abnormal serum enzyme levels Osteoporosis, unspecified osteoporosis type, unspecified pathological fracture presence Anxiety and depression Dysthymic disorder Encounter for immunization Need for other specified prophylactic vaccination against single bacterial disease [facility]* Diagnosis Onset Date Resolution Status Abnormal uterine bleeding ac ione History of breast cancer [facility] Work Phone: Evaluation note* Diagnosis Type 2 diabetes mellitus with hyperglycemia, without long-term current use of insulin (HCC) [facility]* Diagnosis Hiatal hernia with GERD without esophagitis [facility]* Diagnosis Type 2 diabetes mellitus with hyperglycemia, without long-term current use of insulin (HCC) [facility]* Diagnosis Hiatal hernia with GERD without esophagitis [facility]* Diagnosis Anxiety and depression Dysthymic disorder [facility]* Diagnosis Essential hypertension- Primary Unspecified essential hypertension [facility]* Diagnosis Acute left-sided low back pain with left-sided sciatica [facility]* Diagnosis Essential hypertension Unspecified essential hypertension [facility]* Diagnosis Personal history of breast cancer- Primary Personal history of malignant neoplasm of breast [facility]* Diagnosis Hiatal hernia with GERD without esophagitis [facility]* Diagnosis Type 2 diabetes mellitus with hyperglycemia, without long-term current use of insulin (HCC) [facility]* Diagnosis 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eft breast in female, estrogen receptor positive (HCC)- Primary [facility]* Diagnosis Hiatal hernia with GERD without esophagitis [facility]* Diagnosis 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eft breast in female, estrogen receptor positive (HCC)- Primary Encounter for screening mammogram for high-risk patient [facility]* Diagnosis 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eft breast in female, estrogen receptor positive (HCC) Encounter for screening mammogram for high-risk patient [facility] Diagnosis Hiatal hernia with GERD without esophagitis [facility]* Diagnosis Hiatal hernia with GERD without esophagitis [facility]* Diagnosis Type 2 diabetes mellitus with hyperglycemia, without long-term current use of insulin (HCC)- Primary Anxiety and depression Dysthymic disorder [place] Essential hypertension Unspecified essential hypertension Encounter for immunization Need for other specified prophylactic vaccination against single bacterial disease Hiatal hernia with GERD without esophagitis [facility]* Diagnosis HX: breast cancer- Primary Personal history of malignant neoplasm of breast S/P breast reconstruction Breast replaced by other means Breast asymmetry following reconstructive surgery Disproportion of reconstructed breast Hx pulmonary embolism Personal history of pulmonary embolism documented in this encounter [facility]* Diagnosis Anxiety and depression Dysthymic disorder documented in this encounter [facility]* Diagnosis Hiatal hernia with GERD without esophagitis Anxiety and depression Dysthymic disorder documented in this encounter [facility]* Diagnosis Type 2 diabetes mellitus with hyperglycemia, without long-term current use of insulin (HCC)- Primary HX: breast cancer Personal history of malignant neoplasm of breast S/P breast reconstruction Breast replaced by other means Breast asymmetry following reconstructive surgery Disproportion of reconstructed breast documented in this encounter [facility]* Diagnosis Type 2 diabetes mellitus with hyperglycemia, without long-term current use of insulin (HCC) Anxiety and depression Dysthymic disorder Essential hypertension Unspecified essential hypertension Hiatal hernia with GERD without esophagitis HX: breast cancer Personal history of malignant neoplasm of breast S/P breast reconstruction Breast replaced by other means Breast asymmetry following reconstructive surgery Disproportion of reconstructed breast documented in this encounter [facility] note* Diagnosis Hiatal hernia with GERD without esophagitis HX: breast cancer Personal history of malignant neoplasm of breast S/P breast reconstruction Breast replaced by other means Breast asymmetry following reconstructive surgery Disproportion of reconstructed breast documented in this encounter [facility] note* Diagnosis Hiatal hernia with GERD without esophagitis HX: breast cancer Personal history of malignant neoplasm of breast S/P breast reconstruction Breast replaced by other means Breast asymmetry following reconstructive surgery Disproportion of reconstructed breast documented in this encounter [facility] note* Diagnosis Encounter for screening mammogram for breast cancer HX: breast cancer Personal history of malignant neoplasm of breast S/P breast reconstruction Breast replaced by other means Breast asymmetry following reconstructive surgery Disproportion of reconstructed breast documented in this encounter [facility] note* Diagnosis Lump of left breast Lump or mass in breast Focal non-cyclical breast pain Personal history of breast cancer Personal history of malignant neoplasm of breast Fibrocystic breast changes of both breasts HX: breast cancer Personal history of malignant neoplasm of breast S/P breast reconstruction Breast replaced by other means Breast asymmetry following reconstructive surgery Disproportion of reconstructed breast documented in this encounter [facility] note* Diagnosis Anxiety and depression- Primary Dysthymic disorder Hot flashes Symptomatic menopausal or female climacteric states Type 2 diabetes mellitus with hyperglycemia, without long-term current use of insulin ([facility]) HX: breast cancer Personal history of malignant neoplasm of breast S/P breast reconstruction Breast replaced by other means Breast asymmetry following reconstructive surgery Disproportion of reconstructed breast documented in this encounter [facility] note* Diagnosis Pre-op evaluation- Primary Preoperative examination, unspecified Pre-op evaluation- Primary Preoperative examination, unspecified Impaired fasting glucose PONV (postoperative nausea and vomiting) Nausea with vomiting Type 2 diabetes mellitus with hyperglycemia, without long-term current use of insulin (HCC) Obesity, Class III, BMI >= 40 Morbid obesity Hiatal hernia with GERD without esophagitis Primary hypertension Unspecified essential hypertension Anxiety and depression Dysthymic disorder HX: breast cancer Personal history of malignant neoplasm of breast S/P breast reconstruction Breast replaced by other means Breast asymmetry following reconstructive surgery Disproportion of reconstructed breast documented in this encounter [facility] note* Diagnosis Pre-op evaluation- Primary Preoperative examination, unspecified Impaired fasting glucose PONV (postoperative nausea and vomiting) Nausea with vomiting Type 2 diabetes mellitus with hyperglycemia, without long-term current use of insulin (HCC) Obesity, Class III, BMI >= 40 Morbid obesity Hiatal hernia with GERD without esophagitis Primary hypertension Unspecified essential hypertension Anxiety and depression Dysthymic disorder HX: breast cancer Personal history of malignant neoplasm of breast S/P breast reconstruction Breast replaced by other means Breast asymmetry following reconstructive surgery Disproportion of reconstructed breast * Assessment & Plan Note - Tameka Kunz APRN.CNP - 06/14/2024 12:06 PM EDT Associated Problem(s): Anxiety and depression Managed on RX * Assessment & Plan Note - Tameka Kunz APRN.CNP - 06/14/2024 12:06 PM EDT Associated Problem(s): Personal history of other venous thrombosis and embolism (CODE) 2018 PE- completed 1 year AC treatment * Assessment & Plan Note - Tameka Kunz APRN.CNP - 06/14/2024 12:06 PM EDT Associated Problem(s): HTN (hypertension) Managed on losartan, hctz Bp today 130/67 Denies cardiac symptoms EKG pending today * Assessment & Plan Note - Tameka Kunz APRN.CNP - 06/14/2024 12:05 PM EDT Associated Problem(s): Hiatal hernia with GERD without esophagitis Managed on sucralfate and omeprazole * Assessment & Plan Note - Tameka Kunz APRN.CNP - 06/14/2024 12:05 PM EDT Associated Problem(s): Obesity, Class III, BMI >= 40 BMI 43.77 Patient taking trulicity once weekly for weight loss and Dmt2 * Assessment & Plan Note - Tameka Kunz APRN.CNP - 06/14/2024 12:05 PM EDT Associated Problem(s): Type 2 diabetes mellitus with hyperglycemia, without long-term current use of insulin (HCC) Managed on trulicity, metformin' FBS 90 Last hgb A1c from January was 5.0 Hgb A1c pending today * Assessment & Plan Note - Tameka Kunz APRN.CNP - 06/14/2024 12:03 PM EDT Associated Problem(s): PONV (postoperative nausea and vomiting) Patient endorses nausea postoperatively documented in this encounter [facility] note* Diagnosis Pre-op evaluation- Primary Preoperative examination, unspecified Impaired fasting glucose PONV (postoperative nausea and vomiting) Nausea with vomiting Type 2 diabetes mellitus with hyperglycemia, without long-term current use of insulin (HCC) Obesity, Class III, BMI >= 40 Morbid obesity Hiatal hernia with GERD without esophagitis Primary hypertension Unspecified essential hypertension Anxiety and depression Dysthymic disorder Encounter for follow-up surveillance of breast cancer- Primary Unspecified follow-up examination Personal history of breast cancer Personal history of malignant neoplasm of breast HX: breast cancer Personal history of malignant neoplasm of breast S/P breast reconstruction Breast replaced by other means Breast asymmetry following reconstructive surgery Disproportion of reconstructed breast documented in this encounter [facility] note* Diagnosis Pre-op evaluation- Primary Preoperative examination, unspecified Impaired fasting glucose PONV (postoperative nausea and vomiting) Nausea with vomiting Type 2 diabetes mellitus with hyperglycemia, without long-term current use of insulin (HCC) Obesity, Class III, BMI >= 40 Morbid obesity Hiatal hernia with GERD without esophagitis Primary hypertension Unspecified essential hypertension Anxiety and depression Dysthymic disorder Hiatal hernia with GERD without esophagitis HX: breast cancer Personal history of malignant neoplasm of breast S/P breast reconstruction Breast replaced by other means Breast asymmetry following reconstructive surgery Disproportion of reconstructed breast [facility]* Diagnosis Pre-op evaluation- Primary Preoperative examination, unspecified Impaired fasting glucose PONV (postoperative nausea and vomiting) Nausea with vomiting Type 2 diabetes mellitus with hyperglycemia, without long-term current use of insulin (HCC) Obesity, Class III, BMI >= 40 Morbid obesity Hiatal hernia with GERD without esophagitis Primary hypertension Unspecified essential hypertension Anxiety and depression Dysthymic disorder Fibrocystic breast changes of both breasts- Primary Personal history of breast cancer Personal history of malignant neoplasm of breast 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 Encounter for screening mammogram for breast cancer HX: breast cancer Personal history of malignant neoplasm of breast S/P breast reconstruction Breast replaced by other means Breast asymmetry following reconstructive surgery Disproportion of reconstructed breast [facility]* Diagnosis Pre-op evaluation- Primary Preoperative examination, unspecified Impaired fasting glucose PONV (postoperative nausea and vomiting) Nausea with vomiting Type 2 diabetes mellitus with hyperglycemia, without long-term current use of insulin (HCC) Obesity, Class III, BMI >= 40 Morbid obesity Hiatal hernia with GERD without esophagitis Primary hypertension Unspecified essential hypertension Anxiety and depression Dysthymic disorder Personal history of pulmonary embolism- Primary HX: breast cancer Personal history of malignant neoplasm of breast S/P breast reconstruction Breast replaced by other means Breast asymmetry following reconstructive surgery Disproportion of reconstructed breast documented in this encounter [facility] note* Diagnosis Pre-op evaluation- Primary Preoperative examination, unspecified Impaired fasting glucose PONV (postoperative nausea and vomiting) Nausea with vomiting Type 2 diabetes mellitus with hyperglycemia, without long-term current use of insulin (HCC) Obesity, Class III, BMI >= 40 Morbid obesity Hiatal hernia with GERD without esophagitis Primary hypertension Unspecified essential hypertension Anxiety and depression Dysthymic disorder History of pulmonary embolism- Primary Personal history of pulmonary embolism HX: breast cancer Personal history of malignant neoplasm of breast S/P breast reconstruction Breast replaced by other means Breast asymmetry following reconstructive surgery Disproportion of reconstructed breast [facility]* Diagnosis Pre-op evaluation- Primary Preoperative examination, unspecified Impaired fasting glucose PONV (postoperative nausea and vomiting) Nausea with vomiting Type 2 diabetes mellitus with hyperglycemia, without long-term current use of insulin (HCC) Obesity, Class III, BMI >= 40 Morbid obesity Hiatal hernia with GERD without esophagitis Primary hypertension Unspecified essential hypertension Anxiety and depression Dysthymic disorder Post-operative state- Primary Other postprocedural status S/P breast reconstruction Breast replaced by other means Encounter for change or removal of drains Other specified aftercare following surgery [facility]* Diagnosis Pre-op evaluation- Primary Preoperative examination, unspecified Impaired fasting glucose PONV (postoperative nausea and vomiting) Nausea with vomiting Type 2 diabetes mellitus with hyperglycemia, without long-term current use of insulin ([facility]) Obesity, Class III, BMI >= 40 Morbid obesity Hiatal hernia with GERD without esophagitis Primary hypertension Unspecified essential hypertension Anxiety and depression Dysthymic disorder Hiatal hernia with GERD without esophagitis documented in this encounter [facility] note* Diagnosis Pre-op evaluation- Primary Preoperative examination, unspecified Impaired fasting glucose PONV (postoperative nausea and vomiting) Nausea with vomiting Type 2 diabetes mellitus with hyperglycemia, without long-term current use of insulin ([facility]) Obesity, Class III, BMI >= 40 Morbid obesity Hiatal hernia with GERD without esophagitis Primary hypertension Unspecified essential hypertension Anxiety and depression Dysthymic disorder S/P breast reconstruction- Primary Breast replaced by other means HX: breast cancer Personal history of malignant neoplasm of breast Breast asymmetry following reconstructive surgery Disproportion of reconstructed breast [facility]* Diagnosis Pre-op evaluation- Primary Preoperative examination, unspecified Impaired fasting glucose PONV (postoperative nausea and vomiting) Nausea with vomiting Type 2 diabetes mellitus with hyperglycemia, without long-term current use of insulin ([facility]) Obesity, Class III, BMI >= 40 Morbid obesity Hiatal hernia with GERD without esophagitis Primary hypertension Unspecified essential hypertension Anxiety and depression Dysthymic disorder Acute left-sided low back pain with left-sided sciatica documented in this encounter [facility] note* Diagnosis Pre-op evaluation- Primary Preoperative examination, unspecified Impaired fasting glucose PONV (postoperative nausea and vomiting) Nausea with vomiting Type 2 diabetes mellitus with hyperglycemia, without long-term current use of insulin ([facility]) Obesity, Class III, BMI >= 40 Morbid obesity Hiatal hernia with GERD without esophagitis Primary hypertension Unspecified essential hypertension Anxiety and depression Dysthymic disorder Anxiety and depression- Primary Dysthymic disorder Hot flashes Symptomatic menopausal or female climacteric states Essential hypertension Unspecified essential hypertension Type 2 diabetes mellitus with hyperglycemia, without long-term current use of insulin (HCC) Viral sinusitis Unspecified sinusitis (chronic) documented in this encounter [facility] note* Diagnosis Pre-op evaluation- Primary Preoperative examination, unspecified Impaired fasting glucose PONV (postoperative nausea and vomiting) Nausea with vomiting Type 2 diabetes mellitus with hyperglycemia, without long-term current use of insulin (HCC) Obesity, Class III, BMI >= 40 Morbid obesity Hiatal hernia with GERD without esophagitis Primary hypertension Unspecified essential hypertension Anxiety and depression Dysthymic disorder Hypokalemia- Primary Hypopotassemia documented in this encounter [facility] note* Diagnosis Pre-op evaluation- Primary Preoperative examination, unspecified Impaired fasting glucose PONV (postoperative nausea and vomiting) Nausea with vomiting Type 2 diabetes mellitus with hyperglycemia, without long-term current use of insulin (HCC) Obesity, Class III, BMI >= 40 Morbid obesity Hiatal hernia with GERD without esophagitis Primary hypertension Unspecified essential hypertension Anxiety and depression Dysthymic disorder URI, acute- Primary Acute upper respiratory infections of unspecified site Hiatal hernia with GERD without esophagitis Left otitis media, unspecified otitis media type documented in this encounter [facility] note* Diagnosis Pre-op evaluation- Primary Preoperative examination, unspecified Impaired fasting glucose PONV (postoperative nausea and vomiting) Nausea with vomiting Type 2 diabetes mellitus with hyperglycemia, without long-term current use of insulin (HCC) Obesity, Class III, BMI >= 40 Morbid obesity Hiatal hernia with GERD without esophagitis Primary hypertension Unspecified essential hypertension Anxiety and depression Dysthymic disorder Hiatal hernia with GERD without esophagitis documented in this encounter [facility] note* Diagnosis Pre-op evaluation- Primary Preoperative examination, unspecified Impaired fasting glucose PONV (postoperative nausea and vomiting) Nausea with vomiting Type 2 diabetes mellitus with hyperglycemia, without long-term current use of insulin (HCC) Obesity, Class III, BMI >= 40 Morbid obesity Hiatal hernia with GERD without esophagitis Primary hypertension Unspecified essential hypertension Anxiety and depression Dysthymic disorder Encounter for follow-up surveillance of breast cancer- Primary Unspecified follow-up examination documented in this encounter [facility] note* Diagnosis Pre-op evaluation- Primary Preoperative examination, unspecified Impaired fasting glucose PONV (postoperative nausea and vomiting) Nausea with vomiting Type 2 diabetes mellitus with hyperglycemia, without long-term current use of insulin (HCC) Obesity, Class III, BMI >= 40 Morbid obesity Hiatal hernia with GERD without esophagitis Primary hypertension Unspecified essential hypertension Anxiety and depression Dysthymic disorder Acute pain of right shoulder- Primary 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eft breast in female, estrogen receptor positive (HCC) Primary hypertension Unspecified essential hypertension Family history of ischemic heart disease Type 2 diabetes mellitus with hyperglycemia, without long-term current use of insulin ([facility]) Lymphedema Other lymphedema URI, acute Acute upper respiratory infections of unspecified site Hypokalemia Hypopotassemia documented in this encounter [facility] note* Diagnosis Pre-op evaluation- Primary Preoperative examination, unspecified Impaired fasting glucose PONV (postoperative nausea and vomiting) Nausea with vomiting Type 2 diabetes mellitus with hyperglycemia, without long-term current use of insulin ([facility]) Obesity, Class III, BMI >= 40 Morbid obesity Hiatal hernia with GERD without esophagitis Primary hypertension Unspecified essential hypertension Anxiety and depression Dysthymic disorder Acute left-sided low back pain with left-sided sciatica documented in this encounter [facility] note* Diagnosis Pre-op evaluation- Primary Preoperative examination, unspecified Impaired fasting glucose PONV (postoperative nausea and vomiting) Nausea with vomiting Type 2 diabetes mellitus with hyperglycemia, without long-term current use of insulin ([facility]) Obesity, Class III, BMI >= 40 Morbid obesity Hiatal hernia with GERD without esophagitis Primary hypertension Unspecified essential hypertension Anxiety and depression Dysthymic disorder Right-sided chest pain- Primary Personal history of pulmonary embolism Pain of right upper extremity documented in this encounter [facility] note* Diagnosis Pre-op evaluation- Primary Preoperative examination, unspecified Impaired fasting glucose PONV (postoperative nausea and vomiting) Nausea with vomiting Type 2 diabetes mellitus with hyperglycemia, without long-term current use of insulin ([facility]) Obesity, Class III, BMI >= 40 Morbid obesity Hiatal hernia with GERD without esophagitis Primary hypertension Unspecified essential hypertension Anxiety and depression Dysthymic disorder Sore throat- Primary Acute pharyngitis documented in this encounter [facility] note* Diagnosis Pre-op evaluation- Primary Preoperative examination, unspecified Impaired fasting glucose PONV (postoperative nausea and vomiting) Nausea with vomiting Type 2 diabetes mellitus with hyperglycemia, without long-term current use of insulin ([facility]) Obesity, Class III, BMI >= 40 Morbid obesity Hiatal hernia with GERD without esophagitis Primary hypertension Unspecified essential hypertension Anxiety and depression Dysthymic disorder Anxiety and depression Dysthymic disorder Hot flashes Symptomatic menopausal or female climacteric states documented in this encounter [facility] note* Diagnosis Pre-op evaluation- Primary Preoperative examination, unspecified Impaired fasting glucose PONV (postoperative nausea and vomiting) Nausea with vomiting Type 2 diabetes mellitus with hyperglycemia, without long-term current use of insulin ([facility]) Obesity, Class III, BMI >= 40 Morbid obesity Hiatal hernia with GERD without esophagitis Primary hypertension Unspecified essential hypertension Anxiety and depression Dysthymic disorder Hypokalemia- Primary Hypopotassemia documented in this encounter [facility] note* Diagnosis Pre-op evaluation- Primary Preoperative examination, unspecified Impaired fasting glucose PONV (postoperative nausea and vomiting) Nausea with vomiting Type 2 diabetes mellitus with hyperglycemia, without long-term current use of insulin ([facility]) Obesity, Class III, BMI >= 40 Morbid obesity Hiatal hernia with GERD without esophagitis Primary hypertension Unspecified essential hypertension Anxiety and depression Dysthymic disorder Right shoulder pain, unspecified chronicity- Primary documented in this encounter [facility] note* Diagnosis Pre-op evaluation- Primary Preoperative examination, unspecified Impaired fasting glucose PONV (postoperative nausea and vomiting) Nausea with vomiting Type 2 diabetes mellitus with hyperglycemia, without long-term current use of insulin ([facility]) Obesity, Class III, BMI >= 40 Morbid obesity Hiatal hernia with GERD without esophagitis Primary hypertension Unspecified essential hypertension Anxiety and depression Dysthymic disorder Type 2 diabetes mellitus with hyperglycemia, without long-term current use of insulin ([facility]) Essential hypertension Unspecified essential hypertension documented in this encounter [facility] note* Diagnosis Pre-op evaluation- Primary Preoperative examination, unspecified Impaired fasting glucose PONV (postoperative nausea and vomiting) Nausea with vomiting Type 2 diabetes mellitus with hyperglycemia, without long-term current use of insulin ([facility]) Obesity, Class III, BMI >= 40 Morbid obesity Hiatal hernia with GERD without esophagitis Primary hypertension Unspecified essential hypertension Anxiety and depression Dysthymic disorder Essential hypertension Unspecified essential hypertension documented in this encounter [facility] note* Diagnosis Pre-op evaluation- Primary Preoperative examination, unspecified Impaired fasting glucose PONV (postoperative nausea and vomiting) Nausea with vomiting Type 2 diabetes mellitus with hyperglycemia, without long-term current use of insulin ([facility]) Obesity, Class III, BMI >= 40 Morbid obesity Hiatal hernia with GERD without esophagitis Primary hypertension Unspecified essential hypertension Anxiety and depression Dysthymic disorder Anxiety and depression Dysthymic disorder documented in this encounter [facility] note* Diagnosis Pre-op evaluation- Primary Preoperative examination, unspecified Impaired fasting glucose PONV (postoperative nausea and vomiting) Nausea with vomiting Type 2 diabetes mellitus with hyperglycemia, without long-term current use of insulin ([facility]) Obesity, Class III, BMI >= 40 Morbid obesity Hiatal hernia with GERD without esophagitis Primary hypertension Unspecified essential hypertension Anxiety and depression Dysthymic disorder 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eft breast in female, estrogen receptor positive ([facility]) documented in this encounter [facility] note* Diagnosis Pre-op evaluation- Primary Preoperative examination, unspecified Impaired fasting glucose PONV (postoperative nausea and vomiting) Nausea with vomiting Type 2 diabetes mellitus with hyperglycemia, without long-term current use of insulin ([facility]) Obesity, Class III, BMI >= 40 Morbid obesity Hiatal hernia with GERD without esophagitis Primary hypertension Unspecified essential hypertension Anxiety and depression Dysthymic disorder Hypokalemia- Primary Hypopotassemia documented in this encounter [facility] note* Diagnosis Pre-op evaluation- Primary Preoperative examination, unspecified Impaired fasting glucose PONV (postoperative nausea and vomiting) Nausea with vomiting Type 2 diabetes mellitus with hyperglycemia, without long-term current use of insulin ([facility]) Obesity, Class III, BMI >= 40 Morbid obesity Hiatal hernia with GERD without esophagitis Primary hypertension Unspecified essential hypertension Anxiety and depression Dysthymic disorder Type 2 diabetes mellitus with hyperglycemia, without long-term current use of insulin ([facility]) documented in this encounter [facility] note* Diagnosis Pre-op evaluation- Primary Preoperative examination, unspecified Impaired fasting glucose PONV (postoperative nausea and vomiting) Nausea with vomiting Type 2 diabetes mellitus with hyperglycemia, without long-term current use of insulin (HCC) Obesity, Class III, BMI >= 40 Morbid obesity Hiatal hernia with GERD without esophagitis Primary hypertension Unspecified essential hypertension Anxiety and depression Dysthymic disorder Osteoporosis, unspecified osteoporosis type, unspecified pathological fracture presence Hiatal hernia with GERD without esophagitis documented in this encounter [facility] note* Diagnosis Pre-op evaluation- Primary Preoperative examination, unspecified Impaired fasting glucose PONV (postoperative nausea and vomiting) Nausea with vomiting Type 2 diabetes mellitus with hyperglycemia, without long-term current use of insulin (HCC) Obesity, Class III, BMI >= 40 Morbid obesity Hiatal hernia with GERD without esophagitis Primary hypertension Unspecified essential hypertension Anxiety and depression Dysthymic disorder Hiatal hernia with GERD without esophagitis Hypokalemia Hypopotassemia Acute left-sided low back pain with left-sided sciatica Type 2 diabetes mellitus with hyperglycemia, without long-term current use of insulin ([facility]) [facility] Pre-op evaluation- Primary Preoperative examination, unspecified Impaired fasting glucose PONV (postoperative nausea and vomiting) Nausea with vomiting Type 2 diabetes mellitus with hyperglycemia, without long-term current use of insulin (HCC) Obesity, Class III, BMI >= 40 Morbid obesity Hiatal hernia with GERD without esophagitis Primary hypertension Unspecified essential hypertension Anxiety and depression Dysthymic disorder Fatigue, unspecified type- Primary Generalized abdominal pain Abdominal pain, generalized Anxiety and depression Dysthymic disorder documented in this encounter [facility] Discharge instructions Additional Instructions Take Tylenol as needed for pain. You been prescribed a short course of steroids as well as pain medicine. Your blood sugar likely will increase well to steroids please keep an eye on this and follow-up with your primary care doctor as needed. Make sure drink plenty of fluids and adhering to diabetic diet in the meantime. Perform range of motion exercises of your shoulder while wearing the sling (big circles a little circles) as we discussed to prevent frozen shoulder. Follow-up with your primary care doctor for your shoulder. I suspect you have a tendinitis of your shoulder but it is possible you could have a rotator cuff injury as well.[facility] Work Phone: Reason for referral (narrative)* Diagnostic Procedure Only (Routine) - Closed Specialty Diagnoses / Procedures Referred By Contac t Referred To Contact XR IMAGING Diagnoses Acute right ankle pain Procedures XR ANKLE GENERAL 3V AP/LAT/OBL RIGHT RADEX ANKLE COMPLETE MINIMUM 3 VIEWS Savita Griffith APRN.[employer]INDER [address] [place] [address] Xr Imaging Referral ID Status Reason Start Date Expiration Date V isits Requested Visits Authorized [id number] Closed Auto-Generate d Referral 10/21/2021 11/20/2022 1 1 [facility] for referral (narrative)* Diagnostic Procedure Only (Routine) - Pending Review Specialty Diagnoses / Procedures Referred By Buck andrade Referred To Contact BR IMAGING Diagnoses Encounter for screening mammogram for breast cancer Procedures DIANE SCREENING W ERNESTO SCREENING DIGITAL BREAST TOMOSYNTHESIS BI SCREENING MAMMOGRAPHY BI 2-VIEW BREAST INC CAD Jade Mosqueda APRN.CNP [address] [place] [address] [facility] [address] [place] [address] Referral ID Status Reason Start Date Expiration Date Visits Requested Visits Authorized [id number] Pending Review Auto-Generat ed Referral 07/21/2022 08/20/2023 1 1 [facility] for referral (narrative)* Diagnostic Procedure Only (Routine) - Authorized Specialty Diagnoses / Procedures Referred By Buck andrade Referred To Contact BR IMAGING Diagnoses 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eft breast in female, estrogen receptor positive (HCC) Encounter for screening mammogram for high-risk patient Procedures DIANE SCREENING W ERNESTO SCREENING DIGITAL BREAST TOMOSYNTHESIS BI SCREENING MAMMOGRAPHY BI 2-VIEW BREAST INC Kaitlin Chavez APRN.CAST SHELL GRINDER [address] [place] [address] [facility] [address] [place] [address] Referral ID Status Reason Start Date Expiration Date Visits Requested Visits Authorized [id number] Authorized Auto-Generat ed Referral 01/10/2024 02/08/2025 1 1 [facility] for referral (narrative)* Diagnostic Procedure Only (Routine) - Closed Specialty Diagnoses / Procedures Referred By Buck andrade Referred To Contact BR IMAGING Diagnoses Encounter for screening mammogram for breast cancer Procedures DIANE SCREENING W ERNESTO SCREENING DIGITAL BREAST TOMOSYNTHESIS BI SCREENING MAMMOGRAPHY BI 2-VIEW BREAST INC Jade Francosi APRN.[employer] SHELL GRINDER [address] [place] [address] [facility] [address] [place] [address] Referral ID Status Reason Start Date Expiration Date V isits Requested Visits Authorized [id number] Closed Auto-Generate d Referral 07/21/2022 08/20/2023 1 1 [facility] for referral (narrative)* Diagnostic Procedure Only (Routine) - Closed Specialty Diagnoses / Procedures Referred By [facility] Referred To Contact BR IMAGING Diagnoses Lump of left breast Focal non-cyclical breast pain Personal history of breast cancer Fibrocystic breast changes of both breasts Procedures US BREAST LTD LT US BREAST UNILAT INCL AXILLA LIMITED Jade Mosqueda APRN.[employer] GRINDER [address] [place] [address] [facility] [address] [place] [address] Referral ID Status Reason Start Date Expiration Date V isits Requested Visits Authorized [id number] Closed Auto-Generate d Referral 07/14/2021 09/11/2021 1 1 * Diagnostic Procedure Only (Routine) - Closed Specialty Diagnoses / Procedures Referred By [facility] Referred To Contact BR IMAGING Diagnoses Lump of left breast Focal non-cyclical breast pain Personal history of breast cancer Fibrocystic breast changes of both breasts Procedures DIANE DIAGNOSTIC BILAT DIAGNOSTIC MAMMOGRAPHY COMPUTER-AIDED DETCJ BI Jade Mosqueda APRN.[employer] SHELL GRINDER [address] [place] [address] [facility] [address] [place] [address] Referral ID Status Reason Start Date Expiration Date V isits Requested Visits Authorized [id number] Closed Auto-Generated Referral Financial Clearance Not Required 07/14/2021 08/13/2022 1 [facility] Procedure (Routine) - Closed Specialty Diagnoses / Procedures Referred By Contac t Referred To Contact [facility] Diagnoses Pre-op evaluation Procedures ECG COMPLETE ECG ROUTINE ECG W/LEAST 12 LDS W/I&R Tameka Kunz APPLIQUER ZIGZAG.CAST SHELL GRINDER [address] [place] [address] [facility] [address] [place] [address] Referral ID Status Reason Start Date Expiration Date V isits Requested Visits Authorized [id number] Closed Auto-Generate d Referral 06/14/2024 06/14/2025 1 1 [facility] for referral (narrative)[facility] for [facility]: Reason for visit Narrative* Diagnostic Procedure Only (Routine) - Closed Specialty Diagnoses / Procedures Referred By Contac t Referred To Contact XR IMAGING Diagnoses Acute right ankle pain Procedures XR ANKLE GENERAL 3V AP/LAT/OBL RIGHT RADEX ANKLE COMPLETE MINIMUM 3 VIEWS Savita Griffith, APPLIQUER ZIGZAG.CAST SHELL GRINDER [address] [place] [address] Xr Imaging Referral ID Status Reason Start Date Expiration Date V isits Requested Visits Authorized [id number] Closed Auto-Generate d Referral 10/21/2021 11/20/2022 1 1 [facility] for visit Narrative* Diagnostic Procedure Only (Routine) - Closed Specialty Diagnoses / Procedures Referred By Contac t Referred To Contact BR IMAGING Diagnoses 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eft breast in female, estrogen receptor positive (HCC) Encounter for screening mammogram for high-risk patient Procedures DIANE SCREENING W ERNESTO SCREENING DIGITAL BREAST TOMOSYNTHESIS BI SCREENING MAMMOGRAPHY BI 2-VIEW BREAST INC Kaitlin Chavez, APPLIQUER ZIGZAG.CAST SHELL GRINDER [address] [place] [address] [facility] [address] [place] [address] Referral ID Status Reason Start Date Expiration Date V isits Requested Visits Authorized [id number] Closed Auto-Generate d Referral 01/10/2024 02/08/2025 1 1 [facility] Diagnostic Procedure Only (Routine) - Closed Specialty Diagnoses / Procedures Referred By Buck andrade Referred To Contact BR IMAGING Diagnoses 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eft female breast, unspecified estrogen receptor status (HCC) 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eft breast in female, estrogen receptor positive (HCC) Procedures DIANE SCREENING W ERNESTO SCREENING DIGITAL BREAST TOMOSYNTHESIS BI SCREENING MAMMOGRAPHY BI 2-VIEW BREAST INC CAD Savita Griffith, APPLIQUER ZIGZAG.CAST SHELL GRINDER [address] [place] [address] Phone: tel: fax: [facility] [address] [place] [address] Referral ID Status Reason Start Date Expiration Date V isits Requested Visits Authorized [id number] Closed Auto-Generate d Referral 04/17/2025 05/17/2026 1 1 [facility] Medications Administered Section Inactive Administered Medications - [...] 45 MINS Benjamín Rust [address] [place] [address] [facility] [place] [address] [place] [address] Referral ID Status Reason Start Date Expiration Date Visits Requested Visits Authorized [id number] Authorized Auto-Generat ed Referral 12/10/2021 03/11/2022 1 1 Specialty Diagnoses / Procedures Referred By Buck andrade Referred To Contact MR IMAGING Diagnoses Personal history of breast cancer Fibrocystic breast changes of both breasts Procedures MRI BREAST WO/W IVCON BILAT MRI BREAST WITHOUT&WITH CONTRAST W/CAD BILATERAL Jade Mosqueda, APPLIQUER ZIGZAG.CAST SHELL GRINDER [address] [place] [address] Mr Imaging Referral ID Status Reason Start Date Expiration Date V isits Requested Visits Authorized [id number] Closed Auto-Generate d Referral 03/30/2022 05/29/2022 1 1 Specialty Diagnoses / Procedures Referred By Contac t Referred To Contact Nutrition Diagnoses Type 2 diabetes mellitus with hyperglycemia, without long-term current use of insulin (HCC) Procedures CONSULT TO NUTRITION THERAPY OFFICE/OUTPATIENT [facility] 60-74 MINUTES Savita Griffith, APPLIQUER ZIGZAG.CAST SHELL GRINDER [address] [place] [address] Referral ID Status Reason Start Date Expiration Date Visits Requested Visits Authorized [id number] Authorized PCP Requested Referral 05/12/2022 05/12/2023 1 1 Specialty Diagnoses / Procedures Referred By Contac t Referred To Contact Diagnoses Type 2 diabetes mellitus with hyperglycemia, without long-term current use of insulin (HCC) Randy Zhang MD [address] [place] [address] Referral ID Status Reason Start Date Expiration Date V isits Requested Visits Authorized [id number] Pending Review 1 1 Referral ID Status Reason Start Date Expiration Date Visits Re quested Visits Authorized [id number] Closed 1 1 Specialty Diagnoses / Procedures Referred By Contac t Referred To Contact Plastic Surgery Diagnoses 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eft breast in female, estrogen receptor positive (HCC) Procedures CONSULT TO PLASTIC SURGERY OFFICE/OUTPATIENT [facility] 60 MINUTES Kaitlin Manuel, APPLIQUER ZIGZAG.CAST SHELL GRINDER [address] [place] [address] Referral ID Status Reason Start Date Expiration Date Visits Requested Visits Authorized [id number] Authorized PCP Requested Referral 01/04/2024 01/03/2025 1 1 Specialty Diagnoses / Procedures Referred By Contac t Referred To Contact Hematology Diagnoses Hx pulmonary embolism Procedures CONSULT TO HEMATOLOGY OFFICE/OUTPATIENT [facility] 60 MINUTES Linda Dugan MD [address] [place] [address] Referral ID Status Reason Start Date Expiration Date Visits Requested Visits Authorized [id number] Authorized PCP Requested Referral 02/08/2024 02/07/2025 1 1 Specialty Diagnoses / Procedures Referred By Contac t Referred To Contact Hematology Diagnoses Pre-op evaluation Procedures CONSULT TO HEMATOLOGY OFFICE/OUTPATIENT [facility] 60 MINUTES Linda Dugan MD [address] [place] [address] Referral ID Status Reason Start Date Expiration Date Visits Requested Visits Authorized [id number] Authorized PCP Requested Referral 06/14/2024 06/14/2025 1 1 Specialty Diagnoses / Procedures Referred By Contac t Referred To Contact [facility] Diagnoses Post-operative state S/P breast reconstruction Procedures CONSULT TO BREAST REHAB PROGRAM THERAPEUTIC EXERCISES RE, EA 15 MIN. THERAPEUT ACTVITY DIRECT PT CONTACT EACH 15 MIN Arleth Alva APRN.[facility] [address] [place] [address] [facility] [place] [address] [place] [address] Referral ID Status Reason Start Date Expiration Date Visits Requested Visits Authorized [id number] Authorized PCP Requested Referral Auto-Generate d Referral 07/19/2024 07/19/2025 1 1 Specialty Diagnoses / Procedures Referred By Contac t Referred To Contact [facility] Diagnoses S/P breast reconstruction HX: breast cancer Breast asymmetry following reconstructive surgery Procedures CONSULT TO BREAST REHAB PROGRAM THERAPEUTIC EXERCISES RE, EA 15 MIN. THERAPEUT ACTVITY DIRECT PT CONTACT EACH 15 MIN Linda Dugan MD [address] [place] [address] [facility] [address] [address] Referral ID Status Reason Start Date Expiration Date Visits Requested Visits Authorized [id number] Authorized PCP Requested Referral Auto-Generate d Referral 08/16/2024 08/16/2025 1 1 Chief Complaint and Reason for Visit Chief Complaint vaginal itching, isabelle y sore Reason for Visit UTI (urinary tract i nfection) Vulvar dermatitis Chief Complaint AUB Chief Complaint Annual ([employer]) PAP Reason for Visit Abnormal uterine ble eding Encounter for routine gynecological examination Chief Complaint Annual ([employer]) PAP Abnormal uterine and vaginal bleeding, unspecified Reason for Visit Abnormal uterine ble eding Encounter for routine gynecological examination Chief Complaint EMB per SM Reason for Visit Abnormal uterine ble eding History of breast cancer Chief Complaint Admit Date right shoulder pain January 05, 2025 8:0 7am Chief Complaint Admit Date right shoulder pain January 05, 2025 8:0 7am CHEST PRESSURE February 06, 2025 8:22p m Chief Complaint Admit Date right shoulder pain January 05, 2025 8:0 7am CHEST PRESSURE February 06, 2025 8:22p m CHEST PRESSURE February 07, 2025 12:04 pm CHEST PRESSURE February 07, 2025 1:02p m Reason for Visit Admit Date Chest pain, exertional February 06, 2025 8: 22pm Family History No Family History Records Found Relationship Condition Age at Onset Recorded Date/T tony mother Atrial fibrillation Unknown Cerebrovascular accident (CVA) Unknown father Atrial fibrillation Unknown grandmother Malignant neoplasm of breast Unknown Advance Directives No Advanced Directives Records Found Advance Directive Response Recorded Date/ Time Advance Directives No April 08 11:19am Living Will No April 08, 2022 11:19am Power of Aemt No April 08 11:19am Advance Directive Response Recorded Date/ Time Advance Directives No April 08 10:19am Living Will No April 08, 2022 10:19am Power of Aemt No April 08 10:19am Advance Directive Response Recorded Date/ Time Do you have a Healthcare Power of Aemt? No January 05, 2025 8:13am Advance Directives No October 17, 2023 5:01pm Advance Directive Response Recorded Date/ Time Do you have a Healthcare Power of Aemt? No January 05, 2025 8:13am Do you have a Healthcare Power of Aemt? No February 06, 2025 2:51pm Advance Directives No October 17, 2023 5:01pm Advance Directive Response Recorded Date/ Time Do you have a Healthcare Power of Aemt? No January 05, 2025 8:13am Do you have a Healthcare Power of Aemt? No February 06, 2025 8:56pm Advance Directives No October 17, 2023 5:01pm Summary Purpose Additional Source Comments Source Comments (unrecognize d section and content) In the event this informatio n is protected by the Federal Confidentiality of Alcohol and Drug Abuse Patient Records regulations: The Federal rules restrict any use of the information to criminally investigate or prosecute any alcohol or drug abuse patient.[facility] the event this information is protected by the Federal Confidentiality of Alcohol and Drug Abuse Patient Records regulations: The Federal rules restrict any use of the information to criminally investigate or prosecute any alcohol or drug abuse patient.[facility] the event this information is protected by the Federal Confidentiality of Alcohol and Drug Abuse Patient Records regulations: The Federal rules restrict any use of the information to criminally investigate or prosecute any alcohol or drug abuse patient.[facility] the event this information is protected by the Federal Confidentiality of Alcohol and Drug Abuse Patient Records regulations: The Federal rules restrict any use of the information to criminally investigate or prosecute any alcohol or drug abuse patient.[facility] the event this information is protected by the Federal Confidentiality of Alcohol and Drug Abuse Patient Records regulations: The Federal rules restrict any use of the information to criminally investigate or prosecute any alcohol or drug abuse patient.[facility] the event this information is protected by the Federal Confidentiality of Alcohol and Drug Abuse Patient Records regulations: The Federal rules restrict any use of the information to criminally investigate or prosecute any alcohol or drug abuse patient.[facility] the event this information is protected by the Federal Confidentiality of Alcohol and Drug Abuse Patient Records regulations: The Federal rules restrict any use of the information to criminally investigate or prosecute any alcohol or drug abuse patient.[facility] the event this information is protected by the Federal Confidentiality of Alcohol and Drug Abuse Patient Records regulations: The Federal rules restrict any use of the information to criminally investigate or prosecute any alcohol or drug abuse patient.[facility] the event this information is protected by the Federal Confidentiality of Alcohol and Drug Abuse Patient Records regulations: The Federal rules restrict any use of the information to criminally investigate or prosecute any alcohol or drug abuse patient.[facility] the event this information is protected by the Federal Confidentiality of Alcohol and Drug Abuse Patient Records regulations: The Federal rules restrict any use of the information to criminally investigate or prosecute any alcohol or drug abuse patient.[facility] the event this information is protected by the Federal Confidentiality of Alcohol and Drug Abuse Patient Records regulations: The Federal rules restrict any use of the information to criminally investigate or prosecute any alcohol or drug abuse patient.[facility] the event this information is protected by the Federal Confidentiality of Alcohol and Drug Abuse Patient Records regulations: The Federal rules restrict any use of the information to criminally investigate or prosecute any alcohol or drug abuse patient.[facility] the event this information is protected by the Federal Confidentiality of Alcohol and Drug Abuse Patient Records regulations: The Federal rules restrict any use of the information to criminally investigate or prosecute any alcohol or drug abuse patient.[facility] the event this information is protected by the Federal Confidentiality of Alcohol and Drug Abuse Patient Records regulations: The Federal rules restrict any use of the information to criminally investigate or prosecute any alcohol or drug abuse patient.[facility] the event this information is protected by the Federal Confidentiality of Alcohol and Drug Abuse Patient Records regulations: The Federal rules restrict any use of the information to criminally investigate or prosecute any alcohol or drug abuse patient.[facility] the event this information is protected by the Federal Confidentiality of Alcohol and Drug Abuse Patient Records regulations: The Federal rules restrict any use of the information to criminally investigate or prosecute any alcohol or drug abuse patient.[facility] the event this information is protected by the Federal Confidentiality of Alcohol and Drug Abuse Patient Records regulations: The Federal rules restrict any use of the information to criminally investigate or prosecute any alcohol or drug abuse patient.[facility] the event this information is protected by the Federal Confidentiality of Alcohol and Drug Abuse Patient Records regulations: The Federal rules restrict any use of the information to criminally investigate or prosecute any alcohol or drug abuse patient.[facility] the event this information is protected by the Federal Confidentiality of Alcohol and Drug Abuse Patient Records regulations: The Federal rules restrict any use of the information to criminally investigate or prosecute any alcohol or drug abuse patient.[facility] the event this information is protected by the Federal Confidentiality of Alcohol and Drug Abuse Patient Records regulations: The Federal rules restrict any use of the information to criminally investigate or prosecute any alcohol or drug abuse patient.[facility] the event this information is protected by the Federal Confidentiality of Alcohol and Drug Abuse Patient Records regulations: The Federal rules restrict any use of the information to criminally investigate or prosecute any alcohol or drug abuse patient.[facility] the event this information is protected by the Federal Confidentiality of Alcohol and Drug Abuse Patient Records regulations: The Federal rules restrict any use of the information to criminally investigate or prosecute any alcohol or drug abuse patient.[facility]In the event this information is protected by [...] or prosecute any alcohol or drug abuse patient.[facility] the event this information is protected by the Federal Confidentiality of Alcohol and Drug Abuse Patient Records regulations: The Federal rules restrict any use of the information to criminally investigate or prosecute any alcohol or drug abuse patient.[facility] the event this information is protected by the Federal Confidentiality of Alcohol and Drug Abuse Patient Records regulations: The Federal rules restrict any use of the information to criminally investigate or prosecute any alcohol or drug abuse patient.[facility] the event this information is protected by the Federal Confidentiality of Alcohol and Drug Abuse Patient Records regulations: The Federal rules restrict any use of the information to criminally investigate or prosecute any alcohol or drug abuse patient.[facility] the event this information is protected by the Federal Confidentiality of Alcohol and Drug Abuse Patient Records regulations: The Federal rules restrict any use of the information to criminally investigate or prosecute any alcohol or drug abuse patient.[facility]In the event this information is protected by the Federal Confidentiality of Alcohol and Drug Abuse Patient Records regulations: The Federal rules restrict any use of the information to criminally investigate or prosecute any alcohol or drug abuse patient.[facility] HealthIn the event this information is protected by the Federal Confidentiality of Alcohol and Drug Abuse Patient Records regulations: The Federal rules restrict any use of the information to criminally investigate or prosecute any alcohol or drug abuse patient.[facility]In the event this information is protected by the Federal Confidentiality of Alcohol and Drug Abuse Patient Records regulations: The Federal rules restrict any use of the information to criminally investigate or prosecute any alcohol or drug abuse patient.[facility] HealthIn the event this information is protected by the Federal Confidentiality of Alcohol and Drug Abuse Patient Records regulations: The Federal rules restrict any use of the information to criminally investigate or prosecute any alcohol or drug abuse patient.[facility]In the event this information is protected by the Federal Confidentiality of Alcohol and Drug Abuse Patient Records regulations: The Federal rules restrict any use of the information to criminally investigate or prosecute any alcohol or drug abuse patient.[facility] HealthIn the event this information is protected by the Federal Confidentiality of Alcohol and Drug Abuse Patient Records regulations: The Federal rules restrict any use of the information to criminally investigate or prosecute any alcohol or drug abuse patient.[facility]In the event this information is protected by the Federal Confidentiality of Alcohol and Drug Abuse Patient Records regulations: The Federal rules restrict any use of the information to criminally investigate or prosecute any alcohol or drug abuse patient.[facility]In the event this information is protected by the Federal Confidentiality of Alcohol and Drug Abuse Patient Records regulations: The Federal rules restrict any use of the information to criminally investigate or prosecute any alcohol or drug abuse patient.[facility]In the event this information is protected by the Federal Confidentiality of Alcohol and Drug Abuse Patient Records regulations: The Federal rules restrict any use of the information to criminally investigate or prosecute any alcohol or drug abuse patient.[facility]In the event this information is protected by the Federal Confidentiality of Alcohol and Drug Abuse Patient Records regulations: The Federal rules restrict any use of the information to criminally investigate or prosecute any alcohol or drug abuse patient.[facility]In the event this information is protected by the Federal Confidentiality of Alcohol and Drug Abuse Patient Records regulations: The Federal rules restrict any use of the information to criminally investigate or prosecute any alcohol or drug abuse patient.[facility]In the event this information is protected by the Federal Confidentiality of Alcohol and Drug Abuse Patient Records regulations: The Federal rules restrict any use of the information to criminally investigate or prosecute any alcohol or drug abuse patient.[facility]In the event this information is protected by the Federal Confidentiality of Alcohol and Drug Abuse Patient Records regulations: The Federal rules restrict any use of the information to criminally investigate or prosecute any alcohol or drug abuse patient.[facility]In the event this information is protected by the Federal Confidentiality of Alcohol and Drug Abuse Patient Records regulations: The Federal rules restrict any use of the information to criminally investigate or prosecute any alcohol or drug abuse patient.[facility]In the event this information is protected by the Federal Confidentiality of Alcohol and Drug Abuse Patient Records regulations: The Federal rules restrict any use of the information to criminally investigate or prosecute any alcohol or drug abuse patient.[facility]In the event this information is protected by the Federal Confidentiality of Alcohol and Drug Abuse Patient Records regulations: The Federal rules restrict any use of the information to criminally investigate or prosecute any alcohol or drug abuse patient.[facility]In the event this information is protected by the Federal Confidentiality of Alcohol and Drug Abuse Patient Records regulations: The Federal rules restrict any use of the information to criminally investigate or prosecute any alcohol or drug abuse patient.[facility]In the event this information is protected by the Federal Confidentiality of Alcohol and Drug Abuse Patient Records regulations: The Federal rules restrict any use of the information to criminally investigate or prosecute any alcohol or drug abuse patient.[facility]In the event this information is protected by the Federal Confidentiality of Alcohol and Drug Abuse Patient Records regulations: The Federal rules restrict any use of the information to criminally investigate or prosecute any alcohol or drug abuse patient.[facility]In the event this information is protected by the Federal Confidentiality of Alcohol and Drug Abuse Patient Records regulations: The Federal rules restrict any use of the information to criminally investigate or prosecute any alcohol or drug abuse patient.[facility]In the event this information is protected by the Federal Confidentiality of Alcohol and Drug Abuse Patient Records regulations: The Federal rules restrict any use of the information to criminally investigate or prosecute any alcohol or drug abuse patient.[facility]In the event this information is protected by the Federal Confidentiality of Alcohol and Drug Abuse Patient Records regulations: The Federal rules restrict any use of the information to criminally investigate or prosecute any alcohol or drug abuse patient.[facility]In the event this information is protected by the Federal Confidentiality of Alcohol and Drug Abuse Patient Records regulations: The Federal rules restrict any use of the information to criminally investigate or prosecute any alcohol or drug abuse patient.[facility]In the event this information is protected by the Federal Confidentiality of Alcohol and Drug Abuse Patient Records regulations: The Federal rules restrict any use of the information to criminally investigate or prosecute any alcohol or drug abuse patient.[facility]In the event this information is protected by the Federal Confidentiality of Alcohol and Drug Abuse Patient Records regulations: The Federal rules restrict any use of the information to criminally investigate or prosecute any alcohol or drug abuse patient.[facility]In the event this information is protected by the Federal Confidentiality of Alcohol and Drug Abuse Patient Records regulations: The Federal rules restrict any use of the information to criminally investigate or prosecute any alcohol or drug abuse patient.[facility]In the event this information is protected by the Federal Confidentiality of Alcohol and Drug Abuse Patient Records regulations: The Federal rules restrict any use of the information to criminally investigate or prosecute any alcohol or drug abuse patient.[facility]In the event this information is protected by the Federal Confidentiality of Alcohol and Drug Abuse Patient Records regulations: The Federal rules restrict any use of the information to criminally investigate or prosecute any alcohol or drug abuse patient.[facility]In the event this information is protected by the Federal Confidentiality of Alcohol and Drug Abuse Patient Records regulations: The Federal rules restrict any use of the information to criminally investigate or prosecute any alcohol or drug abuse patient.[facility]In the event this information is protected by the Federal Confidentiality of Alcohol and Drug Abuse Patient Records regulations: The Federal rules restrict any use of the information to criminally investigate or prosecute any alcohol or drug abuse patient.[facility]In the event this information is protected by the Federal Confidentiality of Alcohol and Drug Abuse Patient Records regulations: The Federal rules restrict any use of the information to criminally investigate or prosecute any alcohol or drug abuse patient.[facility]In the event this information is protected by the Federal Confidentiality of Alcohol and Drug Abuse Patient Records regulations: The Federal rules restrict any use of the information to criminally investigate or prosecute any alcohol or drug abuse patient.[facility]In the event this information is protected by the Federal Confidentiality of Alcohol and Drug Abuse Patient Records regulations: The Federal rules restrict any use of the information to criminally investigate or prosecute any alcohol or drug abuse patient.[facility]In the event this information is protected by the Federal Confidentiality of Alcohol and Drug Abuse Patient Records regulations: The Federal rules restrict any use of the information to criminally investigate or prosecute any alcohol or drug abuse patient.[facility]In the event this information is protected by the Federal Confidentiality of Alcohol and Drug Abuse Patient Records regulations: The Federal rules restrict any use of the information to criminally investigate or prosecute any alcohol or drug abuse patient.[facility]In the event this information is protected by the Federal Confidentiality of Alcohol and Drug Abuse Patient Records regulations: The Federal rules restrict any use of the information to criminally investigate or prosecute any alcohol or drug abuse patient.[facility]In the event this information is protected by the Federal Confidentiality of Alcohol and Drug Abuse Patient Records regulations: The Federal rules restrict any use of the information to criminally investigate or prosecute any alcohol or drug abuse patient.[facility]In the event this information is protected by the Federal Confidentiality of Alcohol and Drug Abuse Patient Records regulations: The Federal rules restrict any use of the information to criminally investigate or prosecute any alcohol or drug abuse patient.[facility]In the event this information is protected by the Federal Confidentiality of Alcohol and Drug Abuse Patient Records regulations: The Federal rules restrict any use of the information to criminally investigate or prosecute any alcohol or drug abuse patient.[facility]In the event this information is protected by the Federal Confidentiality of Alcohol and Drug Abuse Patient Records regulations: The Federal rules restrict any use of the information to criminally investigate or prosecute any alcohol or drug abuse patient.[facility]In the event this information is protected by the Federal Confidentiality of Alcohol and Drug Abuse Patient Records regulations: The Federal rules restrict any use of the information to criminally investigate or prosecute any alcohol or drug abuse patient.[facility]In the event this information is protected by the Federal Confidentiality of Alcohol and Drug Abuse Patient Records regulations: The Federal rules restrict any use of the information to criminally investigate or prosecute any alcohol or drug abuse patient.[facility] the event this information is protected by the Federal Confidentiality of Alcohol and Drug Abuse Patient Records regulations: The Federal rules restrict any use of the information to criminally investigate or prosecute any alcohol or drug abuse patient.[facility]In the event this information is protected by the Federal Confidentiality of Alcohol and Drug Abuse Patient Records regulations: The Federal rules restrict any use of the information to criminally investigate or prosecute any alcohol or drug abuse patient.[facility] HealthIn the event this information is protected by [...] or prosecute any alcohol or drug abuse patient.[facility]In the event this information is protected by the Federal Confidentiality of Alcohol and Drug Abuse Patient Records regulations: The Federal rules restrict any use of the information to criminally investigate or prosecute any alcohol or drug abuse patient.[facility]In the event this information is protected by the Federal Confidentiality of Alcohol and Drug Abuse Patient Records regulations: The Federal rules restrict any use of the information to criminally investigate or prosecute any alcohol or drug abuse patient.[facility]In the event this information is protected by the Federal Confidentiality of Alcohol and Drug Abuse Patient Records regulations: The Federal rules restrict any use of the information to criminally investigate or prosecute any alcohol or drug abuse patient.[facility]In the event this information is protected by the Federal Confidentiality of Alcohol and Drug Abuse Patient Records regulations: The Federal rules restrict any use of the information to criminally investigate or prosecute any alcohol or drug abuse patient.[facility]In the event this information is protected by the Federal Confidentiality of Alcohol and Drug Abuse Patient Records regulations: The Federal rules restrict any use of the information to criminally investigate or prosecute any alcohol or drug abuse patient.[facility]In the event this information is protected by the Federal Confidentiality of Alcohol and Drug Abuse Patient Records regulations: The Federal rules restrict any use of the information to criminally investigate or prosecute any alcohol or drug abuse patient.[facility]In the event this information is protected by the Federal Confidentiality of Alcohol and Drug Abuse Patient Records regulations: The Federal rules restrict any use of the information to criminally investigate or prosecute any alcohol or drug abuse patient.[facility]In the event this information is protected by the Federal Confidentiality of Alcohol and Drug Abuse Patient Records regulations: The Federal rules restrict any use of the information to criminally investigate or prosecute any alcohol or drug abuse patient.[facility]In the event this information is protected by the Federal Confidentiality of Alcohol and Drug Abuse Patient Records regulations: The Federal rules restrict any use of the information to criminally investigate or prosecute any alcohol or drug abuse patient.[facility]In the event this information is protected by the Federal Confidentiality of Alcohol and Drug Abuse Patient Records regulations: The Federal rules restrict any use of the information to criminally investigate or prosecute any alcohol or drug abuse patient.[facility]In the event this information is protected by the Federal Confidentiality of Alcohol and Drug Abuse Patient Records regulations: The Federal rules restrict any use of the information to criminally investigate or prosecute any alcohol or drug abuse patient.[facility]In the event this information is protected by the Federal Confidentiality of Alcohol and Drug Abuse Patient Records regulations: The Federal rules restrict any use of the information to criminally investigate or prosecute any alcohol or drug abuse patient.[facility]In the event this information is protected by the Federal Confidentiality of Alcohol and Drug Abuse Patient Records regulations: The Federal rules restrict any use of the information to criminally investigate or prosecute any alcohol or drug abuse patient.[facility]In the event this information is protected by the Federal Confidentiality of Alcohol and Drug Abuse Patient Records regulations: The Federal rules restrict any use of the information to criminally investigate or prosecute any alcohol or drug abuse patient.[facility]In the event this information is protected by the Federal Confidentiality of Alcohol and Drug Abuse Patient Records regulations: The Federal rules restrict any use of the information to criminally investigate or prosecute any alcohol or drug abuse patient.[facility]In the event this information is protected by the Federal Confidentiality of Alcohol and Drug Abuse Patient Records regulations: The Federal rules restrict any use of the information to criminally investigate or prosecute any alcohol or drug abuse patient.[facility]In the event this information is protected by the Federal Confidentiality of Alcohol and Drug Abuse Patient Records regulations: The Federal rules restrict any use of the information to criminally investigate or prosecute any alcohol or drug abuse patient.[facility]In the event this information is protected by the Federal Confidentiality of Alcohol and Drug Abuse Patient Records regulations: The Federal rules restrict any use of the information to criminally investigate or prosecute any alcohol or drug abuse patient.[facility]In the event this information is protected by the Federal Confidentiality of Alcohol and Drug Abuse Patient Records regulations: The Federal rules restrict any use of the information to criminally investigate or prosecute any alcohol or drug abuse patient.[facility]In the event this information is protected by the Federal Confidentiality of Alcohol and Drug Abuse Patient Records regulations: The Federal rules restrict any use of the information to criminally investigate or prosecute any alcohol or drug abuse patient.[facility]In the event this information is protected by the Federal Confidentiality of Alcohol and Drug Abuse Patient Records regulations: The Federal rules restrict any use of the information to criminally investigate or prosecute any alcohol or drug abuse patient.[facility]In the event this information is protected by the Federal Confidentiality of Alcohol and Drug Abuse Patient Records regulations: The Federal rules restrict any use of the information to criminally investigate or prosecute any alcohol or drug abuse patient.[facility]In the event this information is protected by the Federal Confidentiality of Alcohol and Drug Abuse Patient Records regulations: The Federal rules restrict any use of the information to criminally investigate or prosecute any alcohol or drug abuse patient.[facility]In the event this information is protected by the Federal Confidentiality of Alcohol and Drug Abuse Patient Records regulations: The Federal rules restrict any use of the information to criminally investigate or prosecute any alcohol or drug abuse patient.[facility]In the event this information is protected by the Federal Confidentiality of Alcohol and Drug Abuse Patient Records regulations: The Federal rules restrict any use of the information to criminally investigate or prosecute any alcohol or drug abuse patient.[facility]In the event this information is protected by the Federal Confidentiality of Alcohol and Drug Abuse Patient Records regulations: The Federal rules restrict any use of the information to criminally investigate or prosecute any alcohol or drug abuse patient.[facility]In the event this information is protected by the Federal Confidentiality of Alcohol and Drug Abuse Patient Records regulations: The Federal rules restrict any use of the information to criminally investigate or prosecute any alcohol or drug abuse patient.[facility]In the event this information is protected by the Federal Confidentiality of Alcohol and Drug Abuse Patient Records regulations: The Federal rules restrict any use of the information to criminally investigate or prosecute any alcohol or drug abuse patient.[facility]In the event this information is protected by the Federal Confidentiality of Alcohol and Drug Abuse Patient Records regulations: The Federal rules restrict any use of the information to criminally investigate or prosecute any alcohol or drug abuse patient.[facility]In the event this information is protected by the Federal Confidentiality of Alcohol and Drug Abuse Patient Records regulations: The Federal rules restrict any use of the information to criminally investigate or prosecute any alcohol or drug abuse patient.[facility]In the event this information is protected by the Federal Confidentiality of Alcohol and Drug Abuse Patient Records regulations: The Federal rules restrict any use of the information to criminally investigate or prosecute any alcohol or drug abuse patient.[facility]In the event this information is protected by the Federal Confidentiality of Alcohol and Drug Abuse Patient Records regulations: The Federal rules restrict any use of the information to criminally investigate or prosecute any alcohol or drug abuse patient.[facility]In the event this information is protected by the Federal Confidentiality of Alcohol and Drug Abuse Patient Records regulations: The Federal rules restrict any use of the information to criminally investigate or prosecute any alcohol or drug abuse patient.[facility]In the event this information is protected by the Federal Confidentiality of Alcohol and Drug Abuse Patient Records regulations: The Federal rules restrict any use of the information to criminally investigate or prosecute any alcohol or drug abuse patient.[facility]In the event this information is protected by the Federal Confidentiality of Alcohol and Drug Abuse Patient Records regulations: The Federal rules restrict any use of the information to criminally investigate or prosecute any alcohol or drug abuse patient.[facility]In the event this information is protected by the Federal Confidentiality of Alcohol and Drug Abuse Patient Records regulations: The Federal rules restrict any use of the information to criminally investigate or prosecute any alcohol or drug abuse patient.[facility]In the event this information is protected by the Federal Confidentiality of Alcohol and Drug Abuse Patient Records regulations: The Federal rules restrict any use of the information to criminally investigate or prosecute any alcohol or drug abuse patient.[facility]In the event this information is protected by the Federal Confidentiality of Alcohol and Drug Abuse Patient Records regulations: The Federal rules restrict any use of the information to criminally investigate or prosecute any alcohol or drug abuse patient.[facility]In the event this information is protected by the Federal Confidentiality of Alcohol and Drug Abuse Patient Records regulations: The Federal rules restrict any use of the information to criminally investigate or prosecute any alcohol or drug abuse patient.[facility]In the event this information is protected by the Federal Confidentiality of Alcohol and Drug Abuse Patient Records regulations: The Federal rules restrict any use of the information to criminally investigate or prosecute any alcohol or drug abuse patient.[facility]In the event this information is protected by the Federal Confidentiality of Alcohol and Drug Abuse Patient Records regulations: The Federal rules restrict any use of the information to criminally investigate or prosecute any alcohol or drug abuse patient.[facility]In the event this information is protected by the Federal Confidentiality of Alcohol and Drug Abuse Patient Records regulations: The Federal rules restrict any use of the information to criminally investigate or prosecute any alcohol or drug abuse patient.[facility]In the event this information is protected by the Federal Confidentiality of Alcohol and Drug Abuse Patient Records regulations: The Federal rules restrict any use of the information to criminally investigate or prosecute any alcohol or drug abuse patient.[facility] Teams (unrecognized sec tion and content) Strategic Sourcing Specialist Relationship Specialty Start Date End Date Randy Zhang MD [facility] [place] [address] PCP - General Family Practice 02/25/14 Strategic Sourcing Specialist Relationship Specialty Start Date End Date Randy Zhang MD [address] [place] [id number] PCP - General Family Practice 02/25/14 Strategic Sourcing Specialist Relationship Specialty Start Date End Date Randy Zhang MD [facility] [place] [address] PCP - General Family Practice 02/25/14 Strategic Sourcing Specialist Relationship Specialty Start Date End Date Randy Zhang MD [address] [place] [address] PCP - General Family Practice 02/25/14 Strategic Sourcing Specialist Relationship Specialty Start Date End Date Randy Zhang MD [facility] [place] [address] PCP - General Family Practice 02/25/14 Strategic Sourcing Specialist Relationship Specialty Start Date End Date Randy Zhang MD [address] [place] [address] PCP - General Family Practice 02/25/14 Strategic Sourcing Specialist Relationship Specialty Start Date End Date Randy Zhang MD [address] [place] [address] PCP - General Family Practice 02/25/14 Strategic Sourcing Specialist Relationship Specialty Start Date End Date Randy Zhang MD [address] [place] [address] PCP - General Family Practice 02/25/14 Strategic Sourcing Specialist Relationship Specialty Start Date End Date Randy Zhang MD [address] [place] [address] PCP - General Family Practice 02/25/14 Strategic Sourcing Specialist Relationship Specialty Start Date End Date Randy Zhang MD [address] [place] [address] PCP - General Family Practice 02/25/14 Strategic Sourcing Specialist Relationship Specialty Start Date End Date Randy Zhang MD [address] [place] [address] PCP - General Family Practice 02/25/14 Strategic Sourcing Specialist Relationship Specialty Start Date End Date Randy Zhang MD [address] [place] [address] PCP - General Family Practice 02/25/14 Strategic Sourcing Specialist Relationship Specialty Start Date End Date Randy Zhang MD [address] [place] [address] PCP - General Family Practice 02/25/14 Strategic Sourcing Specialist Relationship Specialty Start Date End Date Randy Zhang MD [address] [place] [address] PCP - General Family Medicine 02/25/14 Strategic Sourcing Specialist Relationship Specialty Start Date End Date Randy Zhang MD [address] [place] [address] PCP - General Family Medicine 02/25/14 Strategic Sourcing Specialist Relationship Specialty Start Date End Date Randy Zhang MD [address] [place] [address] PCP - General Family Medicine 02/25/14 Strategic Sourcing Specialist Relationship Specialty Start Date End Date Randy Zhang MD [address] [place] [address] PCP - General Family Medicine 02/25/14 Strategic Sourcing Specialist Relationship Specialty Start Date End Date Randy Zhang MD [address] [place] [address] PCP - General Family Medicine 02/25/14 Strategic Sourcing Specialist Relationship Specialty Start Date End Date Randy Zhang MD [address] [place] [address] PCP - General Family Medicine 02/25/14 Strategic Sourcing Specialist Relationship Specialty Start Date End Date Randy Zhang MD [address] [place] [address] PCP - General Family Medicine 02/25/14 Strategic Sourcing Specialist Relationship Specialty Start Date End Date Randy Zhang MD [address] [place] [address] PCP - General Family Medicine 02/25/14 Strategic Sourcing Specialist Relationship Specialty Start Date End Date Randy Zhang MD [address] [place] [address] PCP - General Family Medicine 02/25/14 Strategic Sourcing Specialist Relationship Specialty Start Date End Date Randy Zhang MD [address] [place] [address] PCP - General Family Medicine 02/25/14 Strategic Sourcing Specialist Relationship Specialty Start Date End Date Randy Zhang MD [address] [place] [address] PCP - General Family Medicine 02/25/14 Team Status: Active Member Role Status Dates Dr. Randy Zhang MD Family Provider Active Dr. Randy Zhang MD Primary Care Provider Active Team Status: Inactive Member Role Status Dates Dr. Randy Zhang MD Primary Care Provider Active Dr. Magy Rosado DO Attending Provider, Refe rring Provider Active Strategic Sourcing Specialist Relationship Specialty Start Date End Date Randy Zhang MD [address] [place] [address] PCP - General Family Medicine 02/25/14 Strategic Sourcing Specialist Relationship Specialty Start Date End Date Randy Zhang MD [address] [place] [address] PCP - General Family Medicine 02/25/14 Strategic Sourcing Specialist Relationship Specialty Start Date End Date Randy Zhang MD [address] [place] [address] PCP - General Family Medicine 02/25/14 Strategic Sourcing Specialist Relationship Specialty Start Date End Date Randy Zhang MD [address] [place] [address] PCP - General Family Medicine 02/25/14 Strategic Sourcing Specialist Relationship Specialty Start Date End Date Randy Zhang MD [address] [facility] [place] [address] PCP - General Family Medicine 02/25/14 Strategic Sourcing Specialist Relationship Specialty Start Date End Date Randy Zhang MD [address] [facility] [place] [address] PCP - General Family Medicine 02/25/14 Team Status: Inactive Member Role Status Dates Dr. Randy Zhang MD Primary Care Provider, Referring Provider Active Dr. Alejandra Wick MD Attending Provider Active Team Status: Inactive Member Role Status Dates Dr. Randy Zhang MD Primary Care Provider Active Dr. Alejandra Wick MD Attending Provider, Referr ing Provider Active Strategic Sourcing Specialist Relationship Specialty Start Date End Date Randy Zhang MD [address] [facility], [place] [address] PCP - General Family Medicine 02/25/14 Strategic Sourcing Specialist Relationship Specialty Start Date End Date Randy Zhang MD [address] [place], [place] [address] PCP - General Family Medicine 02/25/14 Strategic Sourcing Specialist Relationship Specialty Start Date End Date Randy Zhang MD [address] [place], [place] [address] PCP - General Family Medicine 02/25/14 Team Status: Inactive Member Role Status Dates Dr. Randy Zhang MD Primary Care Provider, Referring Provider Active Darline Hutton 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, 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-C Attending Provider Active Team Status: Inactive Member Role Status Dates Dr. Randy Zhang MD Primary Care Provider Active Darline Hutton 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, 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-C Attending Provider, Referring Provider Active Team Status: Active Member Role Status Dates Dr. Randy Zhang MD Primary Care Provider Active Darline Hutton 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, 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-C Attending Provider, Referring Provider Active Strategic Sourcing Specialist Relationship Specialty Start Date End Date Randy Zhang MD [address] [place] [address] PCP - General Family Medicine 02/25/14 Strategic Sourcing Specialist Relationship Specialty Start Date End Date Randy Zhang MD [address] [facility], [place] [address] PCP - General Family Medicine 02/25/14 Strategic Sourcing Specialist Relationship Specialty Start Date End Date Randy Zhang MD [address] [place] [address] PCP - General Family Medicine 02/25/14 Strategic Sourcing Specialist Relationship Specialty Start Date End Date Randy Zhang MD [address] [place] [address] PCP - General Family Medicine 02/25/14 Strategic Sourcing Specialist Relationship Specialty Start Date End Date Randy Zhang MD [address] [place] [address] PCP - General Family Medicine 02/25/14 Strategic Sourcing Specialist Relationship Specialty Start Date End Date Randy Zhang MD [address] [place] [address] PCP - General Family Medicine 02/25/14 Strategic Sourcing Specialist Relationship Specialty Start Date End Date Randy Zhang MD [address] [place] [address] PCP - General Family Medicine 02/25/14 Strategic Sourcing Specialist Relationship Specialty Start Date End Date Randy Zhang MD [address] [place] [address] PCP - General Family Medicine 02/25/14 Strategic Sourcing Specialist Relationship Specialty Start Date End Date Randy Zhang MD [address] [facility], [place] 676541 PCP - General Family Medicine 02/25/14 Strategic Sourcing Specialist Relationship Specialty Start Date End Date Randy Zhang MD [address] [place] [address] PCP - General Family Medicine 02/25/14 Strategic Sourcing Specialist Relationship Specialty Start Date End Date Randy Zhang MD [address] [place], [place] [address] PCP - General Family Medicine 02/25/14 Strategic Sourcing Specialist Relationship Specialty Start Date End Date Randy Zhang MD [address] [place] [address] PCP - General Family Medicine 02/25/14 Strategic Sourcing Specialist Relationship Specialty Start Date End Date Randy Zhang MD [address] [place] [address] PCP - General Family Medicine 02/25/14 Strategic Sourcing Specialist Relationship Specialty Start Date End Date Randy Zhang MD [address] [place] [address] PCP - General Family Medicine 02/25/14 Strategic Sourcing Specialist Relationship Specialty Start Date End Date Randy Zhang MD [address] [place] [address] PCP - General Family Medicine 02/25/14 Strategic Sourcing Specialist Relationship Specialty Start Date End Date Randy Zhang MD [address] [place] [address] PCP - General Family Medicine 02/25/14 Strategic Sourcing Specialist Relationship Specialty Start Date End Date Randy Zhang MD [address] [place], [place] [address] PCP - General Family Medicine 02/25/14 Strategic Sourcing Specialist Relationship Specialty Start Date End Date Randy Zhang MD [address] [place], [place] [address] PCP - General Family Medicine 02/25/14 Strategic Sourcing Specialist Relationship Specialty Start Date End Date Randy Zhang MD [address] [place] [address] PCP - General Family Medicine 02/25/14 Strategic Sourcing Specialist Relationship Specialty Start Date End Date Randy Zhang MD [address] [place] [address] PCP - General Family Medicine 02/25/14 Strategic Sourcing Specialist Relationship Specialty Start Date End Date Randy Zhang MD [address] [place] [address] PCP - General Family Medicine 02/25/14 Strategic Sourcing Specialist Relationship Specialty Start Date End Date Randy Zhang MD [address] [place] [address] PCP - General Family Medicine 02/25/14 Strategic Sourcing Specialist Relationship Specialty Start Date End Date Randy Zhang MD [address] [place] [address] PCP - General Family Medicine 02/25/14 Strategic Sourcing Specialist Relationship Specialty Start Date End Date Randy Zhang MD [address] [place] [address] PCP - General Family Medicine 02/25/14 Strategic Sourcing Specialist Relationship Specialty Start Date End Date Randy Zhang MD [address] [place], [place] [address] PCP - General Family Medicine 02/25/14 Strategic Sourcing Specialist Relationship Specialty Start Date End Date Randy Zhang MD [address] [place] [address] PCP - General Family Medicine 02/25/14 Strategic Sourcing Specialist Relationship Specialty Start Date End Date Randy Zhang MD [address] [place], [place] [address] PCP - General Family Medicine 02/25/14 Strategic Sourcing Specialist Relationship Specialty Start Date End Date Randy Zhang MD [address] [place] [address] PCP - General Family Medicine 02/25/14 Strategic Sourcing Specialist Relationship Specialty Start Date End Date Randy Zhang MD [address] [place] [address] PCP - General Family Medicine 02/25/14 Strategic Sourcing Specialist Relationship Specialty Start Date End Date Randy Zhang MD [address] [place] [address] PCP - General Family Medicine 02/25/14 Strategic Sourcing Specialist Relationship Specialty Start Date End Date Randy Zhang MD [address] [place] [address] PCP - General Family Medicine 02/25/14 Strategic Sourcing Specialist Relationship Specialty Start Date End Date Randy Zhang MD [address] [place] [address] PCP - General Family Medicine 02/25/14 Strategic Sourcing Specialist Relationship Specialty Start Date End Date Randy Zhang MD [address] [place], [place] [address] PCP - General Family Medicine 02/25/14 Savita Griffith APRN.CAST SHELL GRINDER [address] [place] [address] Equal Opportunity Officer Family Medicine 08/20/24 Maia Killian APPLIQUER ZIGZAG.CAST SHELL GRINDER [address] [facility] [place] [address] Equal [facility] 08/20/24 Strategic Sourcing Specialist Relationship Specialty Start Date End Date Randy Zhang MD [address] [facility] [place] [address] [phone] PCP - General Family Medicine 02/25/14 Savita Griffith APRN.CAST SHELL GRINDER [address] [facility] [place] [address] [facility] 08/20/24 Maia Killian APPLIQUER ZIGZAG.CAST SHELL GRINDER [address] [facility] [place] [address] [facility] 08/20/24 Strategic Sourcing Specialist Relationship Specialty Start Date End Date Randy Zhang MD [address] [facility] [place] [address] PCP - General Family Medicine 02/25/14 Savita Griffith APPLIQUER ZIGZAG.CAST SHELL GRINDER [address] [facility] [place] [address] [facility] Family Medicine 08/20/24 Maia Killian APPLIQUER ZIGZAG.CAST SHELL GRINDER [address] [facility] [place] [address] [facility] Family Medicine 08/20/24 Strategic Sourcing Specialist Relationship Specialty Start Date End Date Randy Zhang MD [address] [facility] [place] [phone] PCP - General Family Medicine 02/25/14 Savita Griffith APPLIQUER ZIGZAG.CAST SHELL GRINDER [address] [facility] [place] [address] Equal Opportunity Officer Family Medicine 08/20/24 Maia Killian APPLIQUER ZIGZAG.CAST SHELL GRINDER [address] [facility] [place] [address] Equal Opportunity Officer [facility] 08/20/24 Strategic Sourcing Specialist Relationship Specialty Start Date End Date Randy Zhang MD [address] [facility] [place] [address] PCP - General Family Medicine 02/25/14 Savita Griffith APRN.CAST SHELL GRINDER [address] [facility] [place] [address] Equal Opportunity [facility] 08/20/24 Maia Killian APPLIQUER ZIGZAG.CAST SHELL GRINDER [address] [facility] [place] [address] [facility] 08/20/24 Strategic Sourcing Specialist Relationship Specialty Start Date End Date Randy Zhang MD [address] [facility] [place] [address] PCP - General Family Medicine 02/25/14 Savita Griffith APPLIQUER ZIGZAG.CAST SHELL GRINDER [address] [facility] [place] [address] [facility] 08/20/24 Maia Killian APPLIQUER ZIGZAG.CAST SHELL GRINDER [address] [facility] [place] [address] [facility] 08/20/24 Strategic Sourcing Specialist Relationship Specialty Start Date End Date Randy Zhang MD [address] [place] [address] PCP - General Family Medicine 02/25/14 Savita Griffith APRN.CAST SHELL GRINDER [address] [facility] [place] [place] [address] Equal Opportunity [facility] 08/20/24 Maia Killian APPLIQUER ZIGZAG.CAST SHELL GRINDER [address] [place] [address] [facility] 08/20/24 Strategic Sourcing Specialist Relationship Specialty Start Date End Date Randy Zhang MD [address] [place] [address] PCP - General Family Medicine 02/25/14 Savita Griffith APPLIQUER ZIGZAG.CAST SHELL GRINDER [address] [facility] [place] [address] [facility] 08/20/24 Maia Killian APPLIQUER ZIGZAG.CAST SHELL GRINDER [address] [facility] [place] [address] [facility] 08/20/24 Team Status: Active Member Role Status Dates Dr. Randy Zhagn MD Primary Care Provider Active Team Status: Inactive Member Role Status Dates Dr. Randy Zhang MD Primary Care Provider Active Start: January 05, 2025 End: January 05, 2025 Dr. Ashwini Hernandez DO Emergency Provider Active Start: January 05, 2025 End: January 05, 2025 Strategic Sourcing Specialist Relationship Specialty Start Date End Date Randy Zhang MD [address] [facility], [place] [address]681 PCP - General Family Medicine 02/25/14 Savita Griffith APRN.CAST SHELL GRINDER [address] [facility] [place] [place] [address] [facility] 08/20/24 Maia Killian, APPLIQUER ZIGZAG.CAST SHELL GRINDER [address] [facility] [place] [address] [facility] 08/20/24 Team Status: Inactive Member Role Status Dates Dr. Randy Zhang MD Primary Care Provider Active Start: January 05, 2025 End: January 05, 2025 Dr. Ashwini Hernandez DO Attending Provider Active Start: January 05, 2025 End: January 05, 2025 Dr. Ashwini Hernandez DO Emergency Provider Active Start: January 05, 2025 End: January 05, 2025 Team Status: Active Member Role Status Dates Dr. Randy Zhang MD Primary Care Provider Active Start: February 06, 2025 Dr. Steven Reyes MD Emergency Provider Active Sta rt: February 06, 2025 Dr. Cristopher Tavera MD Admit Provider Active Start: February 06, 2025 Dr. Cristopher Tavera MD Attending Provider Active Start: February 06, 2025 Team Status: Inactive Member Role Status Dates Dr. Randy Zhang MD Primary Care Provider Active Start: February 06, 2025 End: February 07, 2025 Dr. Steven Reyes MD Emergency Provider Active Sta rt: February 06, 2025 End: February 07, 2025 Dr. Cristopher Tavera MD Admit Provider Active Start: February 06, 2025 End: February 07, 2025 Dr. Cristopher Tavera MD Other Provider Active Start: February 06, 2025 End: February 07, 2025 Dr. Nilo Hidalgo DO Attending Provider Active Start: February 06, 2025 End: February 07, 2025 Team Status: Active Member Role Status Dates Dr. Randy Zhang MD Primary Care Provider Active Start: February 07, 2025 Dr. Steven Reyes MD Emergency Provider Active Sta rt: February 07, 2025 Dr. Cristopher Tavera MD Admit Provider Active Start: February 07, 2025 Dr. Cristopher Tavera MD Other Provider Active Start: February 07, 2025 Dr. Nilo Hidalgo , Other Provider Active Start: February 07, 2025 Dr. Angel Burger MD Attending Provider Active Start: February 07, 2025 Team Status: Active Member Role Status Dates Dr. Randy Zhang MD Primary Care Provider Active Start: February 07, 2025 Dr. Steven Reyes MD Emergency Provider Active Sta rt: February 07, 2025 Dr. Cristopher Tavera MD Admit Provider Active Start: February 07, 2025 Dr. Cristopher Tavera MD Other Provider Active Start: February 07, 2025 Dr. Nilo Hidalgo DO Attending Provider Active Start: February 07, 2025 Dr. Nilo Hidalgo DO Other Provider Active Start: February 07, 2025 Strategic Sourcing Specialist Relationship Specialty Start Date End Date Randy Zhang MD [address] [place] [address] PCP - General Family Medicine 02/25/14 Savita Griffith, APPLIQUER ZIGZAG.CAST SHELL GRINDER [address] [place] [address] [facility] Family [facility] 08/20/24 Maia Killian, APPLIQUER ZIGZAG.CAST SHELL GRINDER [address] [place], [place] [address] Equal Opportunity Officer Family Medicine 08/20/24 Strategic Sourcing Specialist Relationship Specialty Start Date End Date Randy Zhang MD [address] [place], [place] [address] PCP - General Family Medicine 02/25/14 Savita Griffith, APPLIQUER ZIGZAG.CAST SHELL GRINDER [address] [place] [address] [facility] 08/20/24 Maia Killian APRN.CAST SHELL GRINDER [address] [place] [address] [facility] 08/20/24 Strategic Sourcing Specialist Relationship Specialty Start Date End Date Randy Zhang MD [address] [place] [address] PCP - General Family Medicine 02/25/14 Savita Griffith APRN.CAST SHELL GRINDER [address] [place] [address] [facility] 08/20/24 Maia Killian APPLIQUER ZIGZAG.CAST SHELL GRINDER [address] [place] [address] [facility] 08/20/24 Strategic Sourcing Specialist Relationship Specialty Start Date End Date Randy Zhang MD [address] [place] [address] PCP - General Family Medicine 02/25/14 Savita Griffith APPLIQUER ZIGZAG.CAST SHELL GRINDER [address] [place] [address] [facility] 08/20/24 Maia Killian APPLIQUER ZIGZAG.CAST SHELL GRINDER [address] [place] [address] [facility] 08/20/24 Strategic Sourcing Specialist Relationship Specialty Start Date End Date Randy Zhang MD [address] [place] [address] PCP - General Family Medicine 02/25/14 Savita Griffith, APPLIQUER ZIGZAG.CAST SHELL GRINDER [address] [facility] [place] [address] Equal Opportunity Officer Family Medicine 08/20/24 Maia Killian APRN.CAST SHELL GRINDER [address] [place] [address] Equal Opportunity Officer Family Medicine 08/20/24 Strategic Sourcing Specialist Relationship Specialty Start Date End Date Randy Zhang MD [address] [place] [address] PCP - General Family Medicine 02/25/14 Savita Griffith, APPLIQUER ZIGZAG.CAST SHELL GRINDER [address] [facility] [place] [address] Equal Opportunity Officer Family Medicine 08/20/24 Maia Killian APPLIQUER ZIGZAG.CAST SHELL GRINDER [address] [place] [address] Equal Opportunity Officer Family Medicine 08/20/24 Strategic Sourcing Specialist Relationship Specialty Start Date End Date Randy Zhang MD [address] [place] [address] PCP - General Family Medicine 02/25/14 Savita Griffith, APPLIQUER ZIGZAG.CAST SHELL GRINDER [address] [facility] [place] [address] Equal Opportunity Officer Family Medicine 08/20/24 Maia Killian APRN.CAST SHELL GRINDER [address] [place] [address] Equal Opportunity Officer Family Medicine 08/20/24 Strategic Sourcing Specialist Relationship Specialty Start Date End Date Randy Zhang MD [address] [place] [address] PCP - General Family Medicine 02/25/14 Savita Griffith APRN.CAST SHELL GRINDER [address] [place], [place] [address] Equal Opportunity Officer Family Medicine 08/20/24 Maia Killian APRN.CAST SHELL GRINDER [address] [place], [place] [address] Equal Opportunity Officer Family [facility] 08/20/24 Reason for Visit (unrecogniz ed section and content) Reason Comments Imm/Inj Specialty Diagnoses / Procedures Referred By Contac t Referred To Contact Hematology/Oncology / HEMATOLOGY/ONCOLOGY Diagnoses 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eft female breast C50.412 (ICD-10-CM) - 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eft female breast Procedures GOSERELIN ACETATE IMPLANT [id number] - GOSERELIN ACETATE IMPLANT Kaitlin Manuel, SEAN.CAST SHELL GRINDER [address] [place] [address] Wstr, Injection Medhat [facility] [address] [place] [address] Referral ID Status Reason Start Date Expiration Date V isits Requested Visits Authorized [id number] Authorized 06/06/2020 05/13/2022 25 25 Reason Comments Results Reason Comments New Pain Specialty Diagnoses / Procedures Referred By Contac t Referred To Contact Podiatry Diagnoses Heel spur, right Pain in right foot Procedures CONSULT TO PODIATRY OFFICE/OUTPATIENT NEW HIGH MDM 60-74 MINUTES Kaitlin Manuel APRN.CAST SHELL GRINDER [address] [place] [address] Referral ID Status Reason Start Date Expiration Date V isits Requested Visits Authorized [id number] Closed PCP Requested Referral 12/04/2021 12/04/2022 1 1 Reason Onset Date Comments Opened In Error 01/18/2022 Specialty Diagnoses / Procedures Referred By Contac t Referred To Contact MR IMAGING Diagnoses Personal history of breast cancer Fibrocystic breast changes of both breasts Procedures MRI BREAST WO/W IVCON BILAT MRI BREAST WITHOUT&WITH CONTRAST W/CAD BILATERAL Jade Mosqueda APRN.CAST SHELL GRINDER [address] [place] [address] Mr Imaging Referral ID Status Reason Start Date Expiration Date V isits Requested Visits Authorized [id number] Closed Auto-Generate d Referral 03/30/2022 05/29/2022 1 1 Reason Comments Diabetes Specialty Diagnoses / Procedures Referred By Buck andrade Referred To Contact Diagnoses Type 2 diabetes mellitus with hyperglycemia, without long-term current use of insulin (HCC) Procedures CONSULT TO DIABETES EDUCATION OFFICE/OUTPATIENT [facility] 60-74 MINUTES Savita Griffith, APPLIQUER ZIGZAG.CAST SHELL GRINDER [address] [place] [address] [facility] [address] [place] [address] Referral ID Status Reason Start Date Expiration Date V isits Requested Visits Authorized [id number] Closed PCP Requested Referral 05/04/2022 05/04/2023 1 [...] back Procedures CONSULT TO GENERAL SURGERY OFFICE/OUTPATIENT NEW [facility] MDM 60-74 MINUTES Randy Zhang MD [address] [place] [address] Referral ID Status Reason Start Date Expiration Date V isits Requested Visits Authorized [id number] Closed PCP Requested Referral 01/15/2023 01/15/2024 1 [...] Refill Request 06/30/2023 Reason Comments Follow Up Reason Onset Date Comments Refill Request 11/14/2023 Reason Comments Refill Request Reason Onset Date Comments Refill Request 11/25/2023 Reason Onset Date Comments Refill Request 12/02/2023 Reason Onset Date Comments Refill Request 12/20/2023 Reason Onset Date Comments Refill Request 12/30/2023 Reason Onset Date Comments Refill Request 01/02/2024 Reason Onset Date Comments Refill Request 02/02/2024 Reason Comments Recheck 1 month follow up Reason Comments PHOTOS TAKEN Specialty Diagnoses / Procedures Referred By Buck andrade Referred To Contact Plastic Surgery Diagnoses 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eft breast in female, estrogen receptor positive (HCC) Procedures CONSULT TO PLASTIC SURGERY OFFICE/OUTPATIENT [facility] 60 MINUTES Kaitlin Manuel APRN.[employer] [address] [place] [address] Referral ID Status Reason Start Date Expiration Date V isits Requested Visits Authorized [id number] Closed PCP Requested Referral 01/04/2024 01/03/2025 1 1 Reason Onset Date Comments Refill Request 02/26/2024 Reason Onset Date Comments Refill Request 03/05/2024 Reason Onset Date Comments Refill Request 05/01/2024 Reason Onset Date Comments Refill Request 05/27/2024 Reason Comments Radiology Mammogram Specialty Diagnoses / Procedures Referred By Buck andrade Referred To Contact [facility] Diagnoses Encounter for screening mammogram for breast cancer Procedures DIANE SCREENING W ERNESTO SCREENING DIGITAL BREAST TOMOSYNTHESIS BI SCREENING MAMMOGRAPHY BI 2-VIEW BREAST INC Jade Francois, APPLIQUER ZIGZAG.[employer] [address] [place] [address] [facility] [address] [place] [address] Referral ID Status Reason Start Date Expiration Date V isits Requested Visits Authorized [id number] Closed Auto-Generate d Referral 07/21/2022 08/20/2023 1 1 Reason Comments Radiology Mammogram Specialty Diagnoses / Procedures Referred By Buck t Referred To Contact [facility] Diagnoses Lump of left breast Focal non-cyclical breast pain Personal history of breast cancer Fibrocystic breast changes of both breasts Procedures DIANE DIAGNOSTIC BILAT DIAGNOSTIC MAMMOGRAPHY COMPUTER-AIDED DETCJ BI Jade Mosqueda, SEAN.[employer] [address] [place] [address] [facility] [address] [place] [address] Referral ID Status Reason Start Date Expiration Date V isits Requested Visits Authorized [id number] Closed Auto-Generated Referral Financial Clearance Not Required 07/14/2021 08/13/2022 1 1 Reason Comments Discussion Discuss adjusting an xiety/depression medications Reason Comments Post Op Reason Onset Date Comments Refill Request 06/29/2024 Reason Comments Established Patient Annual breast exam; MS 07/14/21; ERNESTO 01/20/24; scheduled for breast reduction 07/09/24; seen Manuel 06/27/24 and she recommended that she follow up with the breast center since it's been almost 3 yrs; no new breast concerns at this time Reason Onset Date Comments Refill Request 07/23/2024 Reason Onset Date Comments Refill Request 09/03/2024 Reason Comments Follow Up Medication refills; discuss CGM Reason Comments Cough Dental Problem Teeth pain Reason Onset Date Comments Refill Request 11/08/2024 Reason Comments AVS 12/27 Reason Comments Arm Pain acute illness Reason Onset Date Comments Refill Request 02/01/2025 Reason Comments Arm Pain Reason Comments Sore Throat Headache, sneezing, runny nose, post nasal drainage, R side swollen lymph node x 4 days Reason Onset Date Comments Refill Request 02/19/2025 Reason Onset Date Comments Refill Request 04/09/2025 Reason Onset Date Comments Refill Request 04/15/2025 Reason Onset Date Comments Refill Request 05/03/2025 Reason Onset Date Comments Refill Request 05/17/2025 Goals (unrecognized section and content) Goals may be documented in a n alternate sectionGoals may be documented in an alternate sectionGoals may be documented in an alternate sectionGoals may be documented in an alternate sectionGoals may be documented in an alternate sectionGoals may be documented in an alternate sectionGoals may be documented in an alternate sectionGoals may be documented in an alternate section INFORMATION SOURCE (unrecogn ized section and content) DATE CREATED AUTHOR 04/16/2022 [facility] DATE CREATED AUTHOR AUTHOR'S ORGANIZ ATION 10/20/2023 [facility] DATE CREATED AUTHOR AUTHOR'S ORGANIZ ATION 02/27/[address] [facility] DATE CREATED AUTHOR AUTHOR'S ORGANIZ ATION 04/24/2025 [facility] DATE CREATED AUTHOR AUTHOR'S ORGANIZ ATION 07/05/[address] [facility] FOR RECORDS PERTAINING TO PATIENTS WHO ARE [...] BE BASED ON THE PRIMARY CLINICAL RECORDS. [employer] [facility]. provides no warranty or guarantee of the accuracy or completeness of information in this document.
[2025-07-07 18:17] LABS: Hematocrit 43.3 % (37-47); Hemoglobin 14.3 g/dL (12.0-15.0); Immature Granulocytes Count 0.040 X10^3/uL (0.0-0.0); Mean Corp Hgb Conc 33.0 g/dL (32-36); Mean Corpuscular Volume 85.7 fL (81-99); Mean Platelet Vol. 10.0 fl (6.2-12.0); NRBC Flagged by Analyzer 0 % (0-5); Platelet Count 267 K/mm3 (150-450); RBC Distribution Width CV 13.8 % (11.6-14.6); RBC Distribution Width SD 42.9 fl (35.1-43.9); Red Blood Count 5.05 M/mm3 (4.2-5.4); White Blood Count 9.3 K/mm3 (4.4-11.0)
[2025-07-07 18:33] LABS: AST(SGOT) 24 U/L (<=31); Alanine Aminotransfer ALT/SGPT 20 U/L (<=34); Albumin, Serum 4.0 g/dL (3.5-5.0); Alkaline Phosphatase 76 U/L (35-104); Anion Gap 12 (5-15); BUN 11 mg/dL (4-19); BUN/Creat Ratio 16.1 RATIO (10-20); Bilirubin, Direct 0.20 mg/dL (0.00-0.30); Calcium,Total 9.5 mg/dL (7.6-11.0); Carbon Dioxide 25.6 mmol/L (21.0-32.0); Chloride 100 mmol/L (98-108); Estimated Creatinine Clearance 137.68 ml/min (50-250); Globulin 3.5 g/dL (2.2-4.2); Glucose 92 mg/dL (70-99); Potassium 3.7 mmol/L (3.3-5.1); Troponin T High Sensitivity < 6 ng/L (<=14)
--- NOTE | 2025-07-07 18:45 | CT_ITS ---
PROCEDURE: CTA CHEST W/WO CONTRAST 07/07/2025 REASON FOR EXAM: PULMONARY EMBOLISM TECHNIQUE: Procedure Code: [id number] Modality: CT Procedure: CTA CHEST W/WO CONTRAST Multiplanar Sagittal and Coronal images were obtained. 3D post processing was performed. One or more dose reduction techniques were used (e.g., Automated exposure control, adjustment of the mA and/or kV according to patient size, use of iterative reconstruction technique). RADIATION DOSE SUMMARY: DLP: 545.39 mGycm COMPARISON: CTA chest 02/06/2025. FINDINGS: PULMONARY VESSELS: No filling defects suspicious for pulmonary arterial emboli. Normal caliber main pulmonary trunk. No evidence of right heart strain. LUNGS/PLEURA: Clear. No airspace consolidation or findings of pulmonary edema. No pneumothorax or pleural effusion. Subcentimeter calcified granuloma in the right lower lobe noted. MEDIASTINUM: Unremarkable. No lymphadenopathy. HEART: Normal in size. No pericardial effusion. No coronary artery calcification. THORACIC AORTA: Normal. No aneurysm or dissection. UPPER ABDOMEN: Diffuse hepatic steatosis. Otherwise, unremarkable. MUSCULOSKELETAL: No significant osseous abnormality. 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 Probable left axillary lymph node dissection. CT/CTA Chest W/WO Contrast IMPRESSION: No acute intrathoracic abnormality. No pulmonary arterial emboli. Reading Location: [id number]
[2025-07-07 19:17] VITALS: BP 125/99; PULSE 101; RESP 22; TEMP 36.8; O2SAT 98
[2025-07-07 20:36] LABS: Troponin T High Sens 2 HR < 6 ng/L (<=14)
[2025-07-07 20:48] VITALS: BP 140/93; PULSE 103; RESP 22; TEMP 37; O2SAT 96
== END 2025-07-07 21:14 | disposition home or self-care (01) ==
PROVIDERS: Emergency Provider Emergency Medicine; PCP Family Medicine; Visit Provider Emergency Medicine
DX: R00.0 Tachycardia, unspecified (principal); E11.9 Type 2 diabetes mellitus without complications; R07.9 Chest pain, unspecified; R21 Rash and other nonspecific skin eruption; R53.83 Other fatigue; I10 Essential (primary) hypertension; K21.9 Gastro-esophageal reflux disease without esophagitis; R51.9 Headache, unspecified
CPT/HCPCS: 71275; 80048; 80076; 84484; 85025; 93005; 99284; Q9967; A4216